=== PATIENT | male | born 1965 | race Caucasian/White ===

== ENCOUNTER 2020-05-24 10:49 | Observation (INO) | payer OTHER, SELFPAY ==
[2020-05-24] VITALS (14 sets, daily range): BP systolic 112–137; BP diastolic 70–95; PULSE 62–106; RESP 16–24; TEMP 36.4–36.8; O2SAT 88–98
--- NOTE | 2020-05-24 11:16 | XRR_ITS ---
PROCEDURE INFORMATION: Exam: XR Chest, 1 View Exam date and time: 05/24/2020 11:44 AM Age: 55 years old Clinical indication: Dyspnea; Additional info: Dyspnea, covid R/O TECHNIQUE: Imaging protocol: XR of the chest Views: 1 view. COMPARISON: CR Chest 2 views* [id number] 09/24/2018 7:58 PM FINDINGS: Lungs: Lungs are well aerated without a focal area of consolidation. Pleural space: Unremarkable. No pleural effusion. No pneumothorax. Heart/Mediastinum: Cardiomegaly Vasculature: Pacemaker is present via a left subclavian approach. Bones/joints: Unremarkable. XR/XR chest 1V portable [id number] IMPRESSION: Lungs are well aerated without a focal area of consolidation.
--- NOTE | 2020-05-24 11:17 | ECG_ITS ---
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 Measurements Intervals [place] Rate: 96 P: 64 FL: 154 QRS: 260 QRSD: 125 T: 59 QT: 381 QTc: 484 Interpretive Statements SINUS RHYTHM MARKED RIGHT AXIS DEVIATION [QRS AXIS > 100] RIGHT BUNDLE BRANCH BLOCK [120+ ms QRS DURATION, UPRIGHT V1, 40+ ms S IN I/aVL/V4/V5/V6] POSSIBLE ANTERIOR MYOCARDIAL INFARCTION [30 ms Q WAVE IN V3/V4, OR R < 0.2 mV IN V4], OF INDETERMINATE AGE Compared to ECG 09/18/2018 04:01:44 No significant changes Electronically Signed On 05-24-2020 13:19:10 CDT by Alverot Qureshi M.D. https://[employer]arly[employer]so[employer]koaaf[employer] Toursbl[facility].SocialProof/store/NU/[id number] f
--- NOTE | 2020-05-24 11:22 | ED_ITS ---
HPI - SOB/Dyspnea General: Chief Complaint: Shortness of Breath/Dyspnea Stated Complaint: SOB Time Seen by Provider: 05/24/20 10:51 History of Present Illness: HPI Narrative: This patient is a 55-year-old male with a history of COPD. He does not normally use oxygen at home. He does have nebulizers. He also has a history of ischemic cardiomyopathy and has had episodes of CHF. He has been short of breath for several weeks. He is been on 2 rounds of antibiotics and prednisone Dosepak which he finished on Saturday. None of these interventions have made him feel much better. He said he did have a COVID test a couple of weeks ago prior to a stress test. He came in today because he is increasingly short of breath. He was coming up to the hospital for a appointment with cardiology but decided to come to the ER. His sat on arrival was 88%. He is labored. He denies fever, vomiting or diarrhea. He has had a cough and feels like he cannot cough up what he needs to. He has had body aches but said that is not unusual for him. He has been taking his Lasix but did skip it today because he felt so bad. MD elicited complaint: shortness of breath and cough Pertinent past history: COPD and congestive heart failure Onset (ago): week(s) (2 or 3, became worse yesterday) Timing: constant and progressively worsening Severity: severe Exacerbating factors: exertion Relieving factors: oxygen and rest Known history of: COPD, congestive heart failure and diabetes Associated symptoms: Reports chest pain (Tightness across his chest that comes and goes without pattern), cough and myalgias; Deny abdominal pain, fever(s), nausea or vomiting Treatment prior to arrival: bronchodilator Review of Systems General: Reports: 10 or more systems reviewed and unremarkable except in HPI and below Const: Reports: fatigue and malaise; Denies: fever(s) or chills Eyes: Denies: change in vision ENMT: Denies: odynophagia Card: Reports: chest pain (Tightness across his chest that comes and goes without pattern) Resp: Reports: dyspnea, non-productive cough and wheezing; Denies: productive cough GI: Denies: abdominal pain, nausea or vomiting : Denies: flank pain Musc: Denies: neck pain or back pain Skin/Breast: Denies: rash Neuro: Denies: headache(s), numbness in extremities or weakness in extremities Ruben/Lymph: Denies: easy bruising or easy bleeding PFSH ED PFSH: Medical History COPD (chronic obstructive pulmonary disease) Hyperlipidemia Ischemic cardiomyopathy ST elevation myocardial infarction (STEMI) of inferior wall Tobacco abuse Social History Smoking and tobacco status: current every day smoker Physical Exam Const: COMMON NORMALS: no acute distress, patient oriented x3, no limitations and alert GENERAL APPEARANCE: cooperative NUTRITIONAL APPEARANCE: obese morbidly obese HENMT: HEAD & SCALP: normal to inspection FACE & SINUS: normal facial exam Eye: GENERAL EYE: appearance normal, both eyes and all related structures Neck/C-Spine: COMMON NORMALS: supple, no meningeal signs and no JVD Chest: COMMONS NORMALS: normal inspection of the chest Resp: EFFORT & INSPECTION: Yes tachypneic, Yes labored and Yes uses accessory muscles AUSCULTATION: wheezes and diminished lung sounds Cardio: COMMON NORMALS: no JVD, regular rate, regular rhythm and No murmurs present (Cardio) RATE: regular rate RHYTHM: regular rhythm GI: COMMON NORMALS: Normal to inspection, nondistended, normoactive bowel sounds present, Soft to palpation and non-tender INSPECTION: Yes normal to inspection AUSCULTATION: Yes normoactive bowel sounds PALPATION: Yes Soft to palpation Back/Pelvis: COMMON NORMALS: thoracic and lumbar spine normal to inspection Extremity: COMMON NORMALS: normal to inspection Neuro: COMMON NORMALS: patient oriented x3, moves all extremities, no focal motor deficits and no sensory deficits noted SENSORIUM/ORIENTATION: Yes alert MENINGEAL SIGNS: Yes no meningeal signs Psych: COMMON NORMALS: mental status grossly normal, cooperative and normal affect Skin: COMMON NORMALS: no rashes or lesions noted and turgor normal GENERAL SKIN EXAM: no rashes or lesions noted and turgor normal Course ED course: This is a patient with a history of COPD. He does not normally require oxygen but he is requiring it today. He had a negative Covid test today in a couple of weeks ago. Think clinically looks like he may have some pneumonia. He has been on 2 rounds of antibiotic and steroids at home. We will start some IV antibiotics, continue nebulizer treatments. He did get 1 dose of Decadron in the ER. Vital Signs: Vital signs: Vital Signs Temperature 97.6 F 05/25/20 13:30 Pulse Rate 79 05/25/20 13:30 Respiratory Rate 18 05/25/20 13:30 Blood Pressure 118/65 05/25/20 13:30 Pulse Oximetry 94 05/25/20 13:30 MDM - SOB/Dyspnea Lab Data: Labs: Lab Results 05/24/20 05/24/20 05/24/20 Range/Units 12:14 12:14 12:14 WBC 9.5 (4.0-10.0) 10^3/ uL RBC 5.83 H (4.1-5.3) 10^6/u L Hgb 16.7 H (11.7-16.6) g/dL Hct 54.5 H (42.0-52.0) % MCV 93.5 (80-94) fL MCH 28.6 (28.0-34.0) pg MCHC 30.6 (30.0-36.0) g/dL RDW 16.5 H (12.1-15.1) % Plt Count 275 (130-400) 10^3/c mm MPV 10.6 H (7.4-10.4) fL Neut % (Auto) 76.3 % Lymph % (Auto) 13.4 % Norton % (Auto) 6.7 % Eos % (Auto) 2.6 % Baso % (Auto) 0.7 % Neut # (Auto) 7.20 (1.8-7.7) 10^3/u L Lymph # (Auto) 1.3 (0.8-4.8) 10^3/u L Norton # (Auto) 0.6 (0.2-0.9) 10^3/u L Eos # (Auto) 0.3 (0.0-0.8) 10^3/u L Baso # (Auto) 0.1 (0.0-0.1) 10^3/u L Nucleated RBC % (a uto) 0 % Nucleated RBCs # 0.0 /100WBC PT 13.40 (12.1-14.9) SECO NDS INR 0.99 (0.8-1.2) Fibrinogen 465 (174-498) mg/dL D-Dimer 0.31 (0-0.59) ug/mIFE U Sodium 139 (136-145) mmol/L Potassium 4.8 (3.5-5.1) mmol/L Chloride 101 (98-107) mmol/L Carbon Dioxide 28 (22-29) mmol/L Anion Gap 14.8 (5-19) BUN 17 (6-20) mg/dL Creatinine 0.8 (0.7-1.2) mg/dL GFR Calculation 100.0 (90-130) mL/min Glucose 220 H (65-115) mg/dL Calculated Osmolal ity 296 H (285-295) mOsm/k g Lactic Acid (0.5-2.2) mmol/L Calcium 8.8 (8.5-10.5) mg/dL Magnesium 2.2 (1.7-2.3) mg/dL Ferritin 32 (30-400) ng/mL Total Bilirubin 0.3 (0.15-1.2) mg/dL AST 30 (0-40) U/L ALT 36 (0-41) U/L Alkaline Phosphata se 101 (40-130) IU/L Lactate Dehydrogen ase 310 H (135-225) U/L Troponin T Baselin e (0-15) ng/L Troponin T 120 Min laureen (0-15) ng/L Delta Troponin T (0-10) ABS# C-Reactive Protein 5.3 H (0.0-4.9) mg/L NT-Pro-B Natriuret Pep 757 H (0-125) pg/mL Total Protein 6.5 L (6.6-8.7) g/dL Albumin 3.7 (3.5-5.2) g/dL Globulin 2.8 (1.3-4.6) g/dL Procalcitonin 0.07 (0-0.5) ng/mL SARS-CoV-2 Ag (Rap id) (Negative) 05/24/20 05/24/20 05/24/20 Range/Units 12:14 12:14 12:23 WBC (4.0-10.0) 10^3/ uL RBC (4.1-5.3) 10^6/u L Hgb (11.7-16.6) g/dL Hct (42.0-52.0) % MCV (80-94) fL MCH (28.0-34.0) pg MCHC (30.0-36.0) g/dL RDW (12.1-15.1) % Plt Count (130-400) 10^3/c mm MPV (7.4-10.4) fL Neut % (Auto) % Lymph % (Auto) % Norton % (Auto) % Eos % (Auto) % Baso % (Auto) % Neut # (Auto) (1.8-7.7) 10^3/u L Lymph # (Auto) (0.8-4.8) 10^3/u L Norton # (Auto) (0.2-0.9) 10^3/u L Eos # (Auto) (0.0-0.8) 10^3/u L Baso # (Auto) (0.0-0.1) 10^3/u L Nucleated RBC % (a uto) % Nucleated RBCs # /100WBC PT (12.1-14.9) SECO NDS INR (0.8-1.2) Fibrinogen (174-498) mg/dL D-Dimer (0-0.59) ug/mIFE U Sodium (136-145) mmol/L Potassium (3.5-5.1) mmol/L Chloride (98-107) mmol/L Carbon Dioxide (22-29) mmol/L Anion Gap (5-19) BUN (6-20) mg/dL Creatinine (0.7-1.2) mg/dL GFR Calculation (90-130) mL/min Glucose (65-115) mg/dL Calculated Osmolal ity (285-295) mOsm/k g Lactic Acid 1.4 (0.5-2.2) mmol/L Calcium (8.5-10.5) mg/dL Magnesium (1.7-2.3) mg/dL Ferritin (30-400) ng/mL Total Bilirubin (0.15-1.2) mg/dL AST (0-40) U/L ALT (0-41) U/L Alkaline Phosphata se (40-130) IU/L Lactate Dehydrogen ase (135-225) U/L Troponin T Baselin e 81 H (0-15) ng/L Troponin T 120 Min laureen (0-15) ng/L Delta Troponin T (0-10) ABS# C-Reactive Protein (0.0-4.9) mg/L NT-Pro-B Natriuret Pep (0-125) pg/mL Total Protein (6.6-8.7) g/dL Albumin (3.5-5.2) g/dL Globulin (1.3-4.6) g/dL Procalcitonin (0-0.5) ng/mL SARS-CoV-2 Ag (Rap id) Negative (Negative) 05/24/20 Range/Units 14:38 WBC (4.0-10.0) 10^3/ uL RBC (4.1-5.3) 10^6/u L Hgb (11.7-16.6) g/dL Hct (42.0-52.0) % MCV (80-94) fL MCH (28.0-34.0) pg MCHC (30.0-36.0) g/dL RDW (12.1-15.1) % Plt Count (130-400) 10^3/c mm MPV (7.4-10.4) fL Neut % (Auto) % Lymph % (Auto) % Norton % (Auto) % Eos % (Auto) % Baso % (Auto) % Neut # (Auto) (1.8-7.7) 10^3/u L Lymph # (Auto) (0.8-4.8) 10^3/u L Norton # (Auto) (0.2-0.9) 10^3/u L Eos # (Auto) (0.0-0.8) 10^3/u L Baso # (Auto) (0.0-0.1) 10^3/u L Nucleated RBC % (a uto) % Nucleated RBCs # /100WBC PT (12.1-14.9) SECO NDS INR (0.8-1.2) Fibrinogen (174-498) mg/dL D-Dimer (0-0.59) ug/mIFE U Sodium (136-145) mmol/L Potassium (3.5-5.1) mmol/L Chloride (98-107) mmol/L Carbon Dioxide (22-29) mmol/L Anion Gap (5-19) BUN (6-20) mg/dL Creatinine (0.7-1.2) mg/dL GFR Calculation (90-130) mL/min Glucose (65-115) mg/dL Calculated Osmolal ity (285-295) mOsm/k g Lactic Acid (0.5-2.2) mmol/L Calcium (8.5-10.5) mg/dL Magnesium (1.7-2.3) mg/dL Ferritin (30-400) ng/mL Total Bilirubin (0.15-1.2) mg/dL AST (0-40) U/L ALT (0-41) U/L Alkaline Phosphata se (40-130) IU/L Lactate Dehydrogen ase (135-225) U/L Troponin T Baselin e (0-15) ng/L Troponin T 120 Min laureen 76.90 H (0-15) ng/L Delta Troponin T -4.10 L (0-10) ABS# C-Reactive Protein (0.0-4.9) mg/L NT-Pro-B Natriuret Pep (0-125) pg/mL Total Protein (6.6-8.7) g/dL Albumin (3.5-5.2) g/dL Globulin (1.3-4.6) g/dL Procalcitonin (0-0.5) ng/mL SARS-CoV-2 Ag (Rap id) (Negative) Discharge Plan Discharge Patient Disposition: Admitted As Inpatient Admit Provider: Gabrielle Marr Clinical Impression: Acute exacerbation of chronic obstructive airways disease, Community acquired pneumonia Condition: Stable Referrals: Karla Ryan MD [Primary Care Provider] - 06/01/20 10:00 am ( Please follow up with Primary care by phone appointment SaturdayJune 01 at 10:00 am. 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
[2020-05-24 12:24] LABS: Basophils # 0.1 10^3/uL (0.0-0.1); Basophils % 0.7 %; Eosinophils # 0.3 10^3/uL (0.0-0.8); Eosinophils % 2.6 %; Hematocrit 54.5 % (42.0-52.0); Hemoglobin 16.7 g/dL (11.7-16.6); Lymphocytes # 1.3 10^3/uL (0.8-4.8); Lymphocytes % 13.4 %; Mean Corpuscular HGB Conc 30.6 g/dL (30.0-36.0); Mean Corpuscular Hemoglobin 28.6 pg (28.0-34.0); Mean Corpuscular Volume 93.5 fL (80-94); Mean Platelet Volume 10.6 fL (7.4-10.4); Monocytes # 0.6 10^3/uL (0.2-0.9); Monocytes % 6.7 %; Neutrophils % 76.3 %; Nucleated Red Blood Cells % 0 %; Platelet Count 275 10^3/cmm (130-400); Red Blood Count 5.83 10^6/uL (4.1-5.3); Red Cell Distribution Width 16.5 % (12.1-15.1); White Blood Count 9.5 10^3/uL (4.0-10.0)
[2020-05-24] MEDS: dexamethasone 4 mg/mL INJ 6 MG IVP (12:28)
[2020-05-24 12:38] LABS: INR 0.99 (0.8-1.2)
[2020-05-24 12:39] LABS: Fibrinogen 465 mg/dL (174-498)
[2020-05-24 12:41] LABS: D Dimer 0.31 ug/mIFEU (0-0.59)
[2020-05-24 12:42] LABS: Lactic Sepsis W/Reflex 1.4 mmol/L (0.5-2.2)
--- NOTE | 2020-05-24 13:17 | ECG_ITS ---
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 Measurements Intervals [place] Rate: 74 P: 56 [place]: 151 QRS: 258 QRSD: 120 T: 52 QT: 413 QTc: 461 Interpretive Statements SINUS RHYTHM WITH MARKED SINUS ARRHYTHMIA MARKED RIGHT AXIS DEVIATION [QRS AXIS > 100] RIGHT BUNDLE BRANCH BLOCK [120+ ms QRS DURATION, UPRIGHT V1, 40+ ms S IN I/aVL/V4/V5/V6] POSSIBLE ANTERIOR MYOCARDIAL INFARCTION [30 ms Q WAVE IN V3/V4, OR R < 0.2 mV IN V4], OF INDETERMINATE AGE Compared to ECG 05/24/2020 11:03:22 No significant changes Electronically Signed On 05-26-2020 20:58:57 CDT by Alverto Qureshi M.D. [email or web address] [facility].[employer]/store/NU/[id number] f
[2020-05-24 13:20] LABS: SARS Covid-2 Antigen Negative (Negative)
[2020-05-24 13:25] LABS: Troponin(5th) Baseline 81 ng/L (0-15)
[2020-05-24 13:33] LABS: NT Pro B Type Natriuretic Pept 757 pg/mL (0-125); Procalcitonin 0.07 ng/mL (0-0.5)
[2020-05-24 13:44] LABS: Alanine Aminotransferase 36 U/L (0-41); Albumin Level 3.7 g/dL (3.5-5.2); Alkaline Phosphatase 101 IU/L (40-130); Aspartate Amino Transferase 30 U/L (0-40); Blood Urea Nitrogen 17 mg/dL (6-20); C Reactive Protein 5.3 mg/L (0.0-4.9); Calcium 8.8 mg/dL (8.5-10.5); Carbon Dioxide 28 mmol/L (22-29); Chloride 101 mmol/L (98-107); Creatinine Clr Calc Pharmacy 168.6796; Ferritin 32 ng/mL (30-400); Globulin 2.8 g/dL (1.3-4.6); Glucose 220 mg/dL (65-115); Magnesium 2.2 mg/dL (1.7-2.3); Osmolality Calculated 296 mOsm/kg (285-295); Sodium 139 mmol/L (136-145); Total Bilirubin 0.3 mg/dL (0.15-1.2); Total Protein 6.5 g/dL (6.6-8.7)
[2020-05-24 13:52] LABS: Anion Gap 14.8 (5-19)
[2020-05-24 13:53] LABS: Potassium 4.8 mmol/L (3.5-5.1)
[2020-05-24 13:55] LABS: Lactate Dehydrogenase 310 U/L (135-225)
[2020-05-24] MEDS: ipratropium-albuterol 3 mL Neb INHALATION ×3 (16:05→23:37)
[2020-05-24 16:20] LABS: Blood Gas Allen Test Pos; Blood Gas Operator Identificat CAK; Blood Gas Sample Type Arterial; Oxygen Device NC
[2020-05-24 16:27] LABS: ABG PCO2 57.3 mmHg (35-45); ABG PH Result 7.36 (7.35-7.45); Arterial Blood Gas Hematocrit 53.6 % (42-52); Blood Gas Sample Site Brachial, left; HCO3 ABG 32.6 mmol/L (22-26); PO2 ABG 71.8 mmHg (80.0-100.0)
--- NOTE | 2020-05-24 17:05 | PC.NURSE ---
pt report called to Narda DE LA CRUZ in SBAR format.
[2020-05-24] MEDS: cefTRIAXone 1,000 MG in sodium chloride 0.9% (plus) 50 ML 100 MG IV (17:11)
--- NOTE | 2020-05-24 17:14 | PM.HP ---
Providers/Chief Complaint Admitting Physician: Gabrielle Marr MD Primary Care Provider: Karla Ryan MD Chief Complaint: SOB History of Present Illness Param Tejada is a 55 year old male with past medical history of coronary artery disease status post PCI of RCA and LAD, ischemic cardiomyopathy status post defibrillator placement, hypertension, hyperlipidemia wih worsening dyspnea over the past 2-3 months with some worsening over the past 3 weeks. He has had outpatient w/up with [facility] and reportedly was disgnosed with PNa adnd COPD excarebation for which he received a course of abx and sreoids with no relief. Still smokes several cigarettes a day. Today needing new 02 requierment of 2lpm as 02 sat on RA 88%. reportedly needed 02 last year as well but for unclear reason was then taken away. recently from [facility] was advised a stress test, results of which are not currety avalable for review, will request. ABG WNL, COVID rapid AG negative, no infiltrates on CXR, d dimer negative. No fever, URi symptoms. No NVD. Review of Systems General: Reports: 10 or more systems reviewed and unremarkable except in HPI and below Const: Denies: fever(s), chills or body aches Eyes: Denies: change in vision, blurry vision or photophobia ENMT: Denies: throat pain, enlarged tonsils, odynophagia or nasal congestion Card: Denies: chest pain, palpitations, irregular heart rhythm, edema, swelling of feet/ankles, lightheadedness, pre-syncope, dyspnea on exertion or orthopnea Resp: Reports: dyspnea, non-productive cough and wheezing; Denies: productive cough, stridor, pain on inspiration, change in phlegm color, hemoptysis or chest congestion GI: Denies: abdominal pain, nausea, vomiting, hematemesis, coffee ground emesis, dysphagia, heartburn, diarrhea, constipation, GI cramping, change in stool character, hematochezia or melena : Denies: flank pain, dysuria, urinary frequency, urinary urgency, urinary hesitancy or hematuria Musc: Denies: neck pain, back pain, extremity pain, joint swelling, joint warmth or deformity Neuro: Denies: headache(s), numbness in extremities, weakness in extremities, sensory changes, difficulty walking, frequent falls, dizziness, vertigo, behavioral changes, Slurred speech present or seizure-like activity Psych: Denies: anxiety, depression, suicidal ideation or homicidal ideation Endo: Denies: polyuria, polydipsia, tired all the time, cold intolerance or hot flashes Ruben/Lymph: Denies: easy bruising or easy bleeding Medications/Allergies Home Medications Medication Instructions Recorded Confirmed Last Taken Type albuterol sulfate 5 mg/mL(0.5 %) 2.5 mg INHALATION Q4H PRN 04/05/20 04/05/20 Unknown History solution for nebulization albuterol sulfate 90 mcg/actuation 1 inh INHALATION QID 04/05/20 04/05/20 Unknown History aerosol inhaler aspirin 81 mg tablet,delayed 81 mg PO DAILY 04/05/20 04/05/20 Unknown History release atorvastatin 80 mg tablet 80 mg PO DAILY 04/05/20 04/05/20 Unknown History empagliflozin 10 mg tablet 10 mg PO DAILY 04/05/20 04/05/20 Unknown History furosemide 20 mg tablet 20 mg PO DAILY 04/05/20 04/05/20 Unknown History gabapentin 600 mg tablet 600 mg PO TID 04/05/20 04/05/20 Unknown History insulin glargine 100 unit/mL (3 10 unit SUBCUT DAILY 04/05/20 04/05/20 Unknown History mL) subcutaneous pen insulin glargine 100 unit/mL (3 68 unit SUBCUT QAM ml 04/05/20 04/05/20 Unknown History mL) subcutaneous pen metformin 500 mg tablet 500 mg PO DAILY 04/05/20 04/05/20 Unknown History methocarbamol 500 mg tablet 500 mg PO QID 04/05/20 04/05/20 Unknown History metoprolol succinate 25 mg capsule 12.5 mg PO BID each 04/05/20 04/05/20 Unknown History sprinkle, ext. release 24 hr nitroglycerin 0.4 mg sublingual 0.4 mg SUBLINGUAL Q5M PRN 04/05/20 04/05/20 Unknown History tablet ticagrelor 90 mg tablet 90 mg PO BID 04/05/20 04/05/20 Unknown History tramadol 50 mg tablet 50 mg PO Q6H PRN 04/05/20 04/05/20 Unknown History Allergies Allergy/AdvReac Type Severity Reaction Status Date / Time Sulfa (Sulfonamide Allergy ALGY-Anaphy Verified 05/24/20 11:12 Antibiotics) laxis PFSH Acute PFSH: Medical History COPD (chronic obstructive pulmonary disease) Hyperlipidemia Ischemic cardiomyopathy ST elevation myocardial infarction (STEMI) of inferior wall Tobacco abuse Social History Smoking and tobacco status: current every day smoker Vitals/I&O/Wt Last Vital Signs Temp 98.2 F 05/24/20 10:50 Pulse 82 05/24/20 16:58 Resp 16 05/24/20 16:58 BP 126/78 05/24/20 16:58 Pulse Ox 94 05/24/20 16:58 Weight last 48 hrs Weight 115.666 kg Physical Exam Const: COMMON NORMALS: no acute distress, average body habitus, patient oriented x3, no limitations, healthy appearing, alert and well nourished HENMT: COMMON NORMALS: normocephalic and atraumatic HEAD & SCALP: normocephalic and atraumatic Eye: COMMON NORMALS: Equal, round and reactive pupils present, EOMs intact bilaterally, conjunctivae normal and no scleral icterus CONJUNCTIVA: Yes conjunctivae normal PUPIL: Yes Equal, round and reactive pupils present Neck/C-Spine: COMMON NORMALS: no JVD Resp: COMMON NORMALS: normal respiratory effort, No retractions, No use of accessory muscles, clear to auscultation bilaterally and percussion normal AUSCULTATION: clear to auscultation bilaterally PERCUSSION: percussion normal Cardio: COMMON NORMALS: no JVD, regular rate, regular rhythm, S1 normal heart sound present, S2 normal heart sound present, No gallops present (Cardio), No clicks present (Cardio), No murmurs present (Cardio), No rub (Cardio) and Peripheral pulses 2+ throughout RATE: regular rate RHYTHM: regular rhythm HEART SOUNDS: S1 normal heart sound present and S2 normal heart sound present PERIPHERAL PULSES: Peripheral pulses 2+ throughout GI: COMMON NORMALS: Normal to inspection, nondistended, normoactive bowel sounds present, Soft to palpation, non-tender, No hepatosplenomegaly present, no masses and no bruits PALPATION: Yes Soft to palpation and Yes No hepatosplenomegaly present Extremity: COMMON NORMALS: normal to inspection, full ROM, capillary refill normal, no joint enlargement, no clubbing, cyanosis or edema, no calf tenderness and no pedal edema Neuro: COMMON NORMALS: patient oriented x3, CN's II-XII intact bilaterally, moves all extremities, no focal motor deficits, no sensory deficits noted, deep tendon reflexes 2+ bilaterally and gait normal SENSORIUM/ORIENTATION: Yes alert Psych: COMMON NORMALS: mental status grossly normal, Normal thought process present, cooperative, normal affect, speech normal, activity/motor behavior normal, denies hallucinations, denies homicidal ideation and denies suicidal ideation SPEECH: Yes normal speech THOUGHT PROCESS: Normal thought process present Skin: COMMON NORMALS: no rashes or lesions noted, no wounds, turgor normal, no jaundice, no petechiae and no mottling GENERAL SKIN EXAM: no rashes or lesions noted and turgor normal Data : 05/24/20 12:14 05/24/20 12:14 A&P Assessment and plan (1) Acute exacerbation of chronic obstructive airways disease: Admit in observation nebulization with duonebs and budesonide scheduleing methylprednisone 30mg iv q8h for COPD ex nicotine patch daily encouraged to quit ssmoking azithromycin for COPD ex D dimer negative, low probablity of PE BNP 700, lower than previous admissions, clinically euvolemic obtain stress test results from [facility] home 02 eval Status: Acute (2) Tobacco abuse: nicotine patch, counselling for smoking cessation provided Status: Acute (3) Ischemic cardiomyopathy: Cotinue home meds incl B blockers, ASA and Brilinta. 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
--- NOTE | 2020-05-24 17:17 | ECG_ITS ---
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 Measurements Intervals [place] Rate: 68 P: 51 [place]: 149 QRS: 265 QRSD: 120 T: 133 QT: 420 QTc: 447 Interpretive Statements SINUS RHYTHM MARKED RIGHT AXIS DEVIATION [QRS AXIS > 100] RIGHT BUNDLE BRANCH BLOCK [120+ ms QRS DURATION, UPRIGHT V1, 40+ ms S IN I/aVL/V4/V5/V6] POSSIBLE ANTEROSEPTAL MYOCARDIAL INFARCTION [30 ms Q WAVE IN V1-V4], OF INDETERMINATE AGE Compared to ECG 05/24/2020 13:15:31 Sinus arrhythmia no longer present Myocardial infarct finding still present Electronically Signed On 05-26-2020 20:57:17 CDT by Alverto Qureshi M.D. [email or web address].[employer]/store/OM/[id number]
[2020-05-24 18:54] LABS: Troponin 5 6HR 63.11 ng/L (0-15)
[2020-05-24] MEDS: enoxaparin 40 mg/0.4 mL Syringe SUBCUT (19:04)
[2020-05-24] MEDS: ticagrelor 90 mg Tablet PO (19:04)
--- NOTE | 2020-05-24 19:14 | PC.NURSE ---
PTS HEIGHT CHARTED BY SOMEONE ELSE IN ERROR, PT IS NOT 65FT.
[2020-05-24] MEDS: nicotine 14 mg Patch 1 PATCH TRANSDERMA (19:51)
--- NOTE | 2020-05-24 20:09 | PC.NURSE ---
ROOM CHANGE Pt convinced there is something in room making him sneeze. Was moved to room 263 and says thinks is going to be better
[2020-05-24] MEDS: budesonide 0.5 mg/2 mL Neb INHALATION (20:17)
[2020-05-24] MEDS: gabapentin 300 mg Capsule 600 MG PO (21:14)
[2020-05-24] MEDS: metoprolol succinate ER (24 HR) 25 mg Tablet 12.5 MG PO (21:15)
[2020-05-24] MEDS: acetaminophen 325 mg Tablet 650 MG PO (21:16)
[2020-05-24] MEDS: insulin glargine 100 units/1 mL 68 UNIT SUBCUT (21:17)
[2020-05-24] MEDS: TRAMadol 50 mg Tablet PO (21:20)
[2020-05-24] MEDS: atorvastatin 40 mg Tablet 80 MG PO (21:20)
[2020-05-24] MEDS: methocarbamol 500 mg Tablet 1000 MG PO (21:26)
[2020-05-24 21:53] LABS: Glucose Point of Care 232 mg/dL (70-110)
[2020-05-25] VITALS (11 sets, daily range): BP systolic 95–133; BP diastolic 61–81; PULSE 62–89; RESP 17–22; TEMP 36.4–37.2; O2SAT 61–96
--- NOTE | 2020-05-25 05:26 | PC.NURSE ---
SHIFT SUMMARY Rested well tonight. Awake early and ambulated in [place]. Drinking cup of coffee. Says feels about the same this morning but did cough up some thick sputum. Still with nasal congestion but not sneezing like early last evening. Received Tramadol and Methacarbamol at bedtime and says that helps him sleep otherwise his legs bother him all night. Has c/o some SOB with exertion. Has not worn O2 this morning and doing well
[2020-05-25 05:30] LABS: Basophils % 0.2 %; Hematocrit 58.3 % (42.0-52.0); Hemoglobin 17.7 g/dL (11.7-16.6); Lymphocytes # 0.6 10^3/uL (0.8-4.8); Lymphocytes % 5.3 %; Mean Corpuscular HGB Conc 30.4 g/dL (30.0-36.0); Mean Corpuscular Hemoglobin 28.3 pg (28.0-34.0); Mean Corpuscular Volume 93.3 fL (80-94); Mean Platelet Volume 11.1 fL (7.4-10.4); Monocytes # 0.2 10^3/uL (0.2-0.9); Monocytes % 1.9 %; Neutrophils # 10.01 10^3/uL (1.8-7.7); Neutrophils % 92.2 %; Nucleated Red Blood Cells % 0 %; Platelet Count 286 10^3/cmm (130-400); Red Blood Count 6.25 10^6/uL (4.1-5.3); Red Cell Distribution Width 17.1 % (12.1-15.1); White Blood Count 10.9 10^3/uL (4.0-10.0)
[2020-05-25 06:07] LABS: Alanine Aminotransferase 35 U/L (0-41); Albumin Level 4.3 g/dL (3.5-5.2); Alkaline Phosphatase 111 IU/L (40-130); Aspartate Amino Transferase 24 U/L (0-40); Blood Urea Nitrogen 20 mg/dL (6-20); Calcium 9.6 mg/dL (8.5-10.5); Carbon Dioxide 30 mmol/L (22-29); Chloride 102 mmol/L (98-107); Globulin 3.3 g/dL (1.3-4.6); Glomerular Filtration Rate 77.3 mL/min (90-130); Glucose 185 mg/dL (65-115); Osmolality Calculated 301 mOsm/kg (285-295); Sodium 142 mmol/L (136-145); Total Bilirubin 0.3 mg/dL (0.15-1.2); Total Protein 7.6 g/dL (6.6-8.7)
[2020-05-25 07:48] LABS: Glucose Point of Care 167 mg/dL (70-110)
[2020-05-25] MEDS: ipratropium-albuterol 3 mL Neb INHALATION ×2 (08:13→12:24)
[2020-05-25] MEDS: budesonide 0.5 mg/2 mL Neb INHALATION (08:13)
[2020-05-25] MEDS: azithromycin 250 mg Tablet 500 MG PO (08:46)
[2020-05-25] MEDS: aspirin 81 mg EC Tablet PO (08:46)
[2020-05-25] MEDS: metoprolol succinate ER (24 HR) 25 mg Tablet 12.5 MG PO (08:47)
[2020-05-25] MEDS: gabapentin 300 mg Capsule 600 MG PO (08:48)
[2020-05-25] MEDS: pantoprazole DR 40 mg Tablet PO (08:49)
[2020-05-25] MEDS: FUROsemide 20 mg Tablet PO (08:49)
[2020-05-25] MEDS: nicotine 14 mg Patch 1 PATCH TRANSDERMA (08:50)
[2020-05-25] MEDS: ticagrelor 90 mg Tablet PO (08:51)
[2020-05-25] MEDS: acetaminophen 325 mg Tablet 650 MG PO (08:54)
[2020-05-25] MEDS: TRAMadol 50 mg Tablet PO (08:54)
[2020-05-25 10:43] LABS: Glucose Point of Care 255 mg/dL (70-110)
--- NOTE | 2020-05-25 10:59 | PC.NURSE ---
Rounding: CRISTHIAN Mendez informed myself that patient, Mr. Tejada was aggravated that he has not seen the physician at this time. Informed patient that the physician is on another unit seeing patients and that once she is available she would be up to see him. Patient states that if he does not see the physician by noon he is leaving. [facility] physician yesterday and i took in the request form for patient to sign and he states that That stress test has nothing to do with why I'm here and refused to sign the release. I educated patient that it gives the physician access to review previous records to help in his overall care. He still refused. I left the room and 5 minutes later patient had call light on stating he would sign the request for records. Physician notified. Continue to closely monitor. GUSTABO CHICAS
--- NOTE | 2020-05-25 12:24 | P.DS_ITS ---
Discharge Providers Date of Admission: 05/24/20 16:05 Date of Discharge: May 25, 2020 Attending Provider at Admission: Gabrielle Marr MD Attending Provider at Discharge: Gabrielle Marr MD Primary Care Provider: Karla Ryan MD Diagnoses at Discharge Discharge Diagnosis (1) Acute exacerbation of chronic obstructive airways disease: Status: Acute (2) Tobacco abuse: Status: Acute (3) Ischemic cardiomyopathy: Status: Acute (4) Hyperlipidemia: Status: Acute (5) Hypertension: Status: Acute Reason for Visit Reason for Visit: SOB Hospital Course Discharge Summary: Param Tejada is a 55 year old male with past medical history of coronary artery disease status post PCI of RCA and LAD, ischemic cardiomyopathy status post defibrillator placement, hypertension, hyperlipidemia wih worsening dyspnea over the past 2-3 months with some worsening over the past 3 weeks. On ER arrival he was noted to have a new oxygen requirement of 2 L/min on nasal cannula with O2 sats 88%. Covid rapid antigen was negative. There were no infiltrates seen on his chest x-ray. His ABG was relatively within normal range without any signs of respiratory acidosis or hypoxia. D-dimer was negative making probability of PE low. Troponins were mildly elevated, however the delta's were unremarkable. He denied any fever or URI type symptoms. Overall impression was that of acute on chronic COPD exacerbation for which he received treatment with IV steroids, transition to p.o. prednisone taper upon discharge. He also received a course of azithromycin while here. He received nebulization as scheduled with duo nebs and budesonide. He was feeling much improved at this morning and wished to return home. We did recommend waiting to obtain the results of his recent Lexiscan performed at the [facility] so that underlying cardiac etiologies could be excluded including worsening CHF. However he elected to follow-up the results of the study with his design printer balloon at the [facility] and wished to leave today. Referral has also been provided to pulmonology as an outpatient in view of his worsening COPD. Patient is currently on Spiriva, Symbicort and as needed albuterol however without any significant relief in his symptoms and appears to have had a subacute worsening in his COPD over the last few months. Physical Exam Narrative: EXAM NARRATIVE: GEN: Awake, alert and oriented, no acute distress CVS: S1S2 N RS: Bilateral scattered wheezing Abd: Soft, nt/nd , bs+ FIXED INCOME MANAGER: no focal neuro deficits Discharge Data Data Completed and Pending: Completed Studies During Hospitalization Category Date Time Status XR chest 1V trina ble [id number] Stat Exams 05/24/20 11:16 Completed Pending at discharge Category Date Time Status Complete Blood Co unt w/Auto AM LABS Lab 05/26/20 04:00 Ordered Complete Blood Co unt w/Auto AM LABS Lab 05/27/20 04:00 Ordered Comprehensive Met abolic Panel AM LA BS Lab 05/26/20 04:00 Ordered Comprehensive Met abolic Panel AM LA BS Lab 05/27/20 04:00 Ordered Labs from last 24 hours 05/25/20 05/25/20 05/25/20 10:40 07:29 05:04 WBC RBC Hgb Hct MCV MCH MCHC RDW Plt Count MPV Neut % (Auto) Lymph % (Auto) [place] % (Auto) Eos % (Auto) Baso % (Auto) Neut # (Auto) Lymph # (Auto) [place] # (Auto) Eos # (Auto) Baso # (Auto) Nucleated RBC % (a uto) Nucleated RBCs # PT INR Fibrinogen D-Dimer Specimen Type Sample Site ABG pH ABG pCO2 ABG pO2 ABG HCO3 ABG Base Excess Jj Test Hematocrit O2 Delivery Device O2 Liters/Min FiO2 Chemistry Lab Instructor ID Sodium 142 Potassium 5.0 Chloride 102 Carbon Dioxide 30 H Anion Gap 15.0 BUN 20 Creatinine 1.0 GFR Calculation 77.3 L Glucose 185 H POC Glucose 255 167 Calculated Osmolal ity 301 H Lactic Acid Calcium 9.6 Magnesium Ferritin Total Bilirubin 0.3 AST 24 ALT 35 Alkaline Phosphata se 111 Lactate Dehydrogen ase Troponin T Baselin e Troponin T 120 Min [place] Delta Troponin T Troponin T Hi Sens 6Hr Troponin T Hi Sens 6Hr Delta C-Reactive Protein NT-Pro-B Natriuret Pep Total Protein 7.6 Albumin 4.3 Globulin 3.3 Procalcitonin SARS-CoV-2 Ag (Rap id) 05/25/20 05/24/20 05/24/20 05:04 21:50 18:19 WBC 10.9 H RBC 6.25 H Hgb 17.7 H Hct 58.3 H MCV 93.3 MCH 28.3 MCHC 30.4 RDW 17.1 H Plt Count 286 MPV 11.1 H Neut % (Auto) 92.2 Lymph % (Auto) 5.3 [place] % (Auto) 1.9 Eos % (Auto) 0.0 Baso % (Auto) 0.2 Neut # (Auto) 10.01 H Lymph # (Auto) 0.6 L [place] # (Auto) 0.2 Eos # (Auto) 0.0 Baso # (Auto) 0.0 Nucleated RBC % (a uto) 0 Nucleated RBCs # 0.0 PT INR Fibrinogen D-Dimer Specimen Type Sample Site ABG pH ABG pCO2 ABG pO2 ABG HCO3 ABG Base Excess Jj Test Hematocrit O2 Delivery Device O2 Liters/Min FiO2 Chemistry Lab Instructor ID Sodium Potassium Chloride Carbon Dioxide Anion Gap BUN Creatinine GFR Calculation Glucose POC Glucose 232 Calculated Osmolal ity Lactic Acid Calcium Magnesium Ferritin Total Bilirubin AST ALT Alkaline Phosphata se Lactate Dehydrogen ase Troponin T Baselin e Troponin T 120 Min [place] Delta Troponin T Troponin T Hi Sens 6Hr 63.11 H Troponin T Hi Sens 6Hr Delta -17.89 L C-Reactive Protein NT-Pro-B Natriuret Pep Total Protein Albumin Globulin Procalcitonin SARS-CoV-2 Ag (Rap id) 05/24/20 05/24/20 05/24/20 16:09 14:38 12:23 WBC RBC Hgb Hct MCV MCH MCHC RDW Plt Count MPV Neut % (Auto) Lymph % (Auto) [place] % (Auto) Eos % (Auto) Baso % (Auto) Neut # (Auto) Lymph # (Auto) [place] # (Auto) Eos # (Auto) Baso # (Auto) Nucleated RBC % (a uto) Nucleated RBCs # PT INR Fibrinogen D-Dimer Specimen Type Arterial Sample Site Brachial, left ABG pH 7.36 ABG pCO2 57.3 H ABG pO2 71.8 L ABG HCO3 32.6 H ABG Base Excess 5.0 H Jj Test Pos Hematocrit 53.6 H O2 Delivery Device Nc O2 Liters/Min 2.0 FiO2 28.0 Chemistry Lab Instructor ID Cak Sodium Potassium Chloride Carbon Dioxide Anion Gap BUN Creatinine GFR Calculation Glucose POC Glucose Calculated Osmolal ity Lactic Acid Calcium Magnesium Ferritin Total Bilirubin AST ALT Alkaline Phosphata se Lactate Dehydrogen ase Troponin T Baselin e Troponin T 120 Min [place] 76.90 H Delta Troponin T -4.10 L Troponin T Hi Sens 6Hr Troponin T Hi Sens 6Hr Delta C-Reactive Protein NT-Pro-B Natriuret Pep Total Protein Albumin Globulin Procalcitonin SARS-CoV-2 Ag (Rap id) Negative 05/24/20 05/24/20 05/24/20 12:14 12:14 12:14 WBC 9.5 RBC 5.83 H Hgb 16.7 H Hct 54.5 H MCV 93.5 MCH 28.6 MCHC 30.6 RDW 16.5 H Plt Count 275 MPV 10.6 H Neut % (Auto) 76.3 Lymph % (Auto) 13.4 [place] % (Auto) 6.7 Eos % (Auto) 2.6 Baso % (Auto) 0.7 Neut # (Auto) 7.20 Lymph # (Auto) 1.3 [place] # (Auto) 0.6 Eos # (Auto) 0.3 Baso # (Auto) 0.1 Nucleated RBC % (a uto) 0 Nucleated RBCs # 0.0 PT INR Fibrinogen D-Dimer Specimen Type Sample Site ABG pH ABG pCO2 ABG pO2 ABG HCO3 ABG Base Excess Jj Test Hematocrit O2 Delivery Device O2 Liters/Min FiO2 Chemistry Lab Instructor ID Sodium Potassium Chloride Carbon Dioxide Anion Gap BUN Creatinine GFR Calculation Glucose POC Glucose Calculated Osmolal ity Lactic Acid 1.4 Calcium Magnesium Ferritin Total Bilirubin AST ALT Alkaline Phosphata se Lactate Dehydrogen ase Troponin T Baselin e 81 H Troponin T 120 Min [place] Delta Troponin T Troponin T Hi Sens 6Hr Troponin T Hi Sens 6Hr Delta C-Reactive Protein NT-Pro-B Natriuret Pep Total Protein Albumin Globulin Procalcitonin SARS-CoV-2 Ag (Rap id) 05/24/20 05/24/20 12:14 12:14 WBC RBC Hgb Hct MCV MCH MCHC RDW Plt Count MPV Neut % (Auto) Lymph % (Auto) [place] % (Auto) Eos % (Auto) Baso % (Auto) Neut # (Auto) Lymph # (Auto) [place] # (Auto) Eos # (Auto) Baso # (Auto) Nucleated RBC % (a uto) Nucleated RBCs # PT 13.40 INR 0.99 Fibrinogen 465 D-Dimer 0.31 Specimen Type Sample Site ABG pH ABG pCO2 ABG pO2 ABG HCO3 ABG Base Excess Jj Test Hematocrit O2 Delivery Device O2 Liters/Min FiO2 Chemistry Lab Instructor ID Sodium 139 Potassium 4.8 Chloride 101 Carbon Dioxide 28 Anion Gap 14.8 BUN 17 Creatinine 0.8 GFR Calculation 100.0 Glucose 220 H POC Glucose Calculated Osmolal ity 296 H Lactic Acid Calcium 8.8 Magnesium 2.2 Ferritin 32 Total Bilirubin 0.3 AST 30 ALT 36 Alkaline Phosphata se 101 Lactate Dehydrogen ase 310 H Troponin T Baselin e Troponin T 120 Min [place] Delta Troponin T Troponin T Hi Sens 6Hr Troponin T Hi Sens 6Hr Delta C-Reactive Protein 5.3 H NT-Pro-B Natriuret Pep 757 H Total Protein 6.5 L Albumin 3.7 Globulin 2.8 Procalcitonin 0.07 SARS-CoV-2 Ag (Rap id) Vitals: Last Vital Signs Temp 98.0 F 05/25/20 12:00 Pulse 72 05/25/20 12:00 Resp 18 05/25/20 12:00 BP 101/66 05/25/20 12:00 Pulse Ox 96 05/25/20 12:00 Discharge Plan Discharge Patient Disposition: Home Condition: Stable Prescriptions: New nicotine 14 mg/24 hr Patch 24 Hour 1 patch transdermal DAILY 14 Days Qty: 14 RF: 0 prednisone 20 mg tablet See Rx Instructions .ROUTE .COMPLEX Qty: 11 RF: 0 Continued albuterol sulfate 90 mcg/actuation HFA aerosol inhaler 1 inh INHALATION QID RF: 0 albuterol sulfate 5 mg/mL solution for nebulization 2.5 mg INHALATION Q4H PRNRF: 0 aspirin 81 mg tablet,delayed release (DR/EC) 81 mg PO DAILY RF: 0 atorvastatin 80 mg tablet 80 mg PO DAILY RF: 0 Brilinta 90 mg tablet 90 mg PO BID RF: 0 furosemide 20 mg tablet 20 mg PO DAILY RF: 0 gabapentin 600 mg tablet 600 mg PO TID RF: 0 insulin glargine 100 unit/mL (3 mL) insulin pen 10 unit SUBCUT DAILY RF: 0 methocarbamol 500 mg tablet 500 mg PO QID RF: 0 metoprolol succinate 25 mg capsule,sprinkle,ER 24hr 12.5 mg PO BID RF: 0 nitroglycerin 0.4 mg tablet, sublingual 0.4 mg SUBLINGUAL Q5M PRNRF: 0 tramadol 50 mg tablet 50 mg PO Q6H PRNRF: 0 Jardiance 10 mg tablet 10 mg PO DAILY RF: 0 metformin 500 mg tablet 500 mg PO DAILY RF: 0 Lantus Solostar U-100 Insulin 100 unit/mL (3 mL) insulin pen 68 unit SUBCUT QAM RF: 0 Discharge Orders: Discharge Order (Routine); Ordered 05/25/20 Ordered By: Gabrielle Marr Referrals: Karla Ryan MD [Primary Care Provider] - 06/01/20 10:00 am ( Please follow up with Primary care by phone appointment SaturdayJune 01 at 10:00 am. The [facility] office will be calling.) Jasmina Hernandez MD [Physician] - 06/08/20 2:00 pm (Please follow up with Dr Mary COPPOLA SaturdayJune 08 at 2:00 pm) Discharge Diet: Cardiac and Diabetic Discharge Activity: Increase activity as tolerated Patient Instructions: Prednisone (By mouth), Nicotine (Absorbed through the skin), Chest Pain (GEN), How to Stop Smoking (GEN), Cigarette Smoking and Your Health (GEN), Chest Pain Stoplight Discharge Date/Time: 05/25/20 13:10 Discharge Attestations Time Spent in Discharge Care*: greater than 30 min Specific Discharge Activities: Specific discharge activities: educating patient and evaluating patient/reviewing data Quality Metrics Clinical Quality Measures During this hospital stay, did patient experience: None Coding Level of Care Code Acute Elephant Keeper for Chg Fwd Diagnoses Acute exacerbation of chronic obstructive airways disease J44.1 Tobacco abuse Z72.0 Ischemic cardiomyopathy I25.5 Hyperlipidemia E78.5 Hypertension I10
--- NOTE | 2020-05-25 15:36 | PC.RESP ---
Smoking Cessation and Pulmonary Rehab information sent to patient.
== END 2020-05-25 13:10 | disposition home or self-care (01) ==
LOC: ER 16:26 → MEDSURG 20:37
PROVIDERS: Emergency Medicine; Admitting Provider Student in an Organized Health Care Education/Training Program; PCP Family Medicine; Visit Provider Student in an Organized Health Care Education/Training Program
DX: J44.1 Chronic obstructive pulmonary disease with (acute) exacerbation (principal); F17.210 Nicotine dependence, cigarettes, uncomplicated; E78.5 Hyperlipidemia, unspecified; I10 Essential (primary) hypertension; I25.10 Atherosclerotic heart disease of native coronary artery without angina pectoris; I25.2 Old myocardial infarction
CPT/HCPCS: 12345; 36415; 36416; 36600; 71045; 80053; 82728; 82803; 82962; 83605; 83615; 83735; 83880; 84145; 84484; 85025; 85378; 85384; 85610; 86140; 87426; 93005; 94640; 94664; 96365; 96367; 96372; 96375; 99284; 99285; G0378; J0696; J1100; J1650; J1815 ×2; J2920; J7626; Q0144

== ENCOUNTER 2020-06-02 09:22 | Outpatient (RCR) | payer OTHER, SELFPAY | END 2020-06-11 23:59 | disposition home or self-care (01) | LOC: SPT 09:22 | PROVIDERS: PCP Family Medicine; Referring Provider Family Medicine; Visit Provider Family Medicine | DX: M54.5 Low back pain (principal) | CPT/HCPCS: 97161 ==

== ENCOUNTER 2020-06-24 10:44 | Inpatient (IN) | payer OTHER, SELFPAY ==
[2020-06-24] VITALS (18 sets, daily range): BP systolic 118–172; BP diastolic 71–96; PULSE 61–112; RESP 18–26; TEMP 36.8–37.2; O2SAT 82–97; BMI 43.2
--- NOTE | 2020-06-24 11:04 | XR_ITS ---
WS: [id number] Portable AP upright chest, 06/24/2020 Clinical Data: dyspnea/cough Comparison: Portable chest, 05/24/2020. Findings: No nodules, masses or effusions are seen. The heart is enlarged. There is a prominent pacem ora unchanged. The diaphragms are flattened. The pulmonary vascularity is not increased. No pneumoni a or pneumothorax is seen. XR/XR chest 1V portable [id number] Impression: Cardiomegaly and hyperinflation.
--- NOTE | 2020-06-24 11:04 | ED_ITS ---
HPI - SOB/Dyspnea General: Chief Complaint: Shortness of Breath/Dyspnea Stated Complaint: SOB Time Seen by Provider: 06/24/20 10:59 History of Present Illness: HPI Narrative: 55-year-old male with chronic cough and shortness of breath. He is been tested several times for Covid which is been negative he is been treated with steroids and antibiotics he says when he is on the steroids it helps but he is off of antibiotics now. He is on Symbicort and he seen Dr. Potts. Breathing test next week. Patient is morbidly obese has a history of diabetes mellitus. He denies fever sweats or chills denies chest pain. MD elicited complaint: shortness of breath and cough Pertinent past history: COPD Onset (ago): week(s) Context: occurred during exertion Timing: constant Severity: moderate Exacerbating factors: exertion and coughing Relieving factors: oxygen and rest Known history of: COPD Associated symptoms: Reports chest congestion and cough; Deny abdominal pain, chest pain, diaphoresis, dizziness, extremity pain, fever(s), hemoptysis, lightheadedness, myalgias, nausea, orthopnea, palpitations, paresthesias, polydipsia, polyuria, rash, sense of impending doom, syncope or vomiting Treatment prior to arrival: bronchodilator Review of Systems Const: Denies: fever(s) or diaphoresis ENMT: Denies: throat pain, ear or mastoid pain, nasal discharge or nasal congestion Card: Denies: chest pain, palpitations, lightheadedness, syncope or orthopnea Resp: Reports: chest congestion; Denies: hemoptysis GI: Denies: abdominal pain, nausea or vomiting : Denies: flank pain, dysuria, urinary frequency or urinary urgency Musc: Denies: extremity pain Skin/Breast: Denies: rash or pruritus Neuro: Denies: dizziness Endo: Denies: polyuria or polydipsia PFSH ED PFSH: Medical History (Updated 06/28/20 @ 12:41 by Blayne Lofton DO) 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 2 diabetes mellitus COPD (chronic obstructive pulmonary disease) -not oxygen dependent Hyperlipidemia Hypertension 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 dependent diabetes mellitus Ischemic cardiomyopathy Morbid obesity Obstructive sleep apnea -non compliant with CPAP ST elevation myocardial infarction (STEMI) of inferior wall Tobacco abuse Surgical History (Updated 06/24/20 @ 17:50 by Maribel Selby MD) History of cardiac defibrillator placement History of coronary artery stent placement -hx of CAD with inferior wall IN s/p RCA stent, LAD stent Family History (Updated 06/24/20 @ 17:50 by Maribel Selby MD) Denies family history of CAD (coronary artery disease) Social History Smoking and tobacco status: current every day smoker cigarettes Packs smoked per day: 1 Years cigarettes smoked: 40 Quit status (tobacco): considering quitting Alcohol intake: never Lives independently: Yes Household members: none Marital status: Single service: Yes Current occupational status: disabled Pets and animals: Yes Pets & animals: dog(s) History of recent travel: No Current gender identity: Male Physical Exam Const: COMMON NORMALS: no acute distress GENERAL APPEARANCE: cooperative and comfortable ORIENTATION/CONSCIOUSNESS: Yes awake, Yes oriented to person, Yes oriented to place and Yes oriented to time HENMT: COMMON NORMALS: normocephalic, atraumatic and hearing grossly normal bilaterally HEAD & SCALP: normocephalic and atraumatic Neck/C-Spine: COMMON NORMALS: no JVD Resp: AUSCULTATION: rhonchi, wheezes and diminished lung sounds Cardio: COMMON NORMALS: no JVD, regular rate, regular rhythm and No murmurs present (Cardio) RATE: regular rate RHYTHM: regular rhythm GI: COMMON NORMALS: Soft to palpation and No hepatosplenomegaly present AUSCULTATION: Yes normoactive bowel sounds PALPATION: Yes Soft to palpation, No Tenderness to palpation present (GI), No Guarding due to palpation present (GI) and Yes No hepatosplenomegaly present Extremity: COMMON NORMALS: normal to inspection, capillary refill normal, no clubbing, cyanosis or edema, no calf tenderness and no pedal edema Neuro: SENSORIUM/ORIENTATION: Yes oriented to person, Yes oriented to place and Yes oriented to time Skin: COMMON NORMALS: no rashes or lesions noted GENERAL SKIN EXAM: no rashes or lesions noted Course Vital Signs: Vital signs: Vital Signs Temperature 97.4 F L 06/28/20 11:14 Pulse Rate 89 06/28/20 11:35 Respiratory Rate 18 06/28/20 11:32 Blood Pressure 122/82 06/28/20 11:14 Pulse Oximetry 97 06/28/20 11:32 MDM - SOB/Dyspnea MDM Narrative: Medical decision making narrative: She has significant exacerbation COPD as well as other comorbid conditions cussed with Dr. Trujillo we will go ahead and admit to the hospital she is seen the patient and written orders. Lab Data: Labs: Lab Results 06/24/20 06/24/20 06/24/20 Range/Units 11:24 11:52 11:52 WBC 14.3 H (4.0-10.0) 10^3/ uL RBC 5.75 H (4.1-5.3) 10^6/u L Hgb 16.6 (11.7-16.6) g/dL Hct 53.4 H (42.0-52.0) % MCV 92.9 (80-94) fL MCH 28.9 (28.0-34.0) pg MCHC 31.1 (30.0-36.0) g/dL RDW 17.2 H (12.1-15.1) % Plt Count 223 (130-400) 10^3/c mm MPV 11.1 H (7.4-10.4) fL Neut % (Auto) 73.4 % Lymph % (Auto) 7.8 % [place] % (Auto) 6.2 % Eos % (Auto) 10.7 % Baso % (Auto) 0.8 % Neut # (Auto) 10.46 H (1.8-7.7) 10^3/u L Lymph # (Auto) 1.1 (0.8-4.8) 10^3/u L [place] # (Auto) 0.9 (0.2-0.9) 10^3/u L Eos # (Auto) 1.5 H (0.0-0.8) 10^3/u L Baso # (Auto) 0.1 (0.0-0.1) 10^3/u L Nucleated RBC % (a uto) 0 % Nucleated RBCs # 0.0 /100WBC Specimen Type Arterial Sample Site Brachial, left ABG pH 7.41 (7.35-7.45) ABG pCO2 53.0 H (35-45) mmHg ABG pO2 51.0 L (80.0-100.0) mmH g ABG HCO3 33.3 H (22-26) mmol/L ABG O2 Saturation 88.5 ABG Base Excess 6.6 H (-2.0-2.0) mmol/ L Jj Test Pos A-a O2 Gradient 4.7 L (5-10) mmHg Hematocrit 51.3 (42-52) % Hgb O2 Saturation 83.5 L (95-100) % Carboxyhemoglobin 5.3 (0.4-20.1) %THgb Methemoglobin 0.3 L (0.4-1.5) % Total Hemoglobin 16.7 (14-18) g/dL Sodium 141.0 141 (131-143) mmol/L Potassium 4.6 4.8 (3.5-5.0) mmol/L Glucose 237.0 H 250 H (70-115) mg/dL Ionized Calcium 1.2 (1.1-1.4) mmol/L O2 Delivery Device Room air O2 Liters/Min % FiO2 21.0 % Head Of Operation And Logistics ID Cak Chloride 101 (98-107) mmol/L Carbon Dioxide 32 H (22-29) mmol/L Anion Gap 12.8 (5-19) BUN 20 (6-20) mg/dL Creatinine 0.7 (0.7-1.2) mg/dL GFR Calculation 116.7 (90-130) mL/min Calculated Osmolal ity 303 H (285-295) mOsm/k g Calcium 9.0 (8.5-10.5) mg/dL Total Bilirubin 0.5 (0.15-1.2) mg/dL AST 26 (0-40) U/L ALT 38 (0-41) U/L Alkaline Phosphata se 79 (40-130) IU/L Total Protein 6.6 (6.6-8.7) g/dL Albumin 3.8 (3.5-5.2) g/dL Globulin 2.8 (1.3-4.6) g/dL 06/24/20 Range/Units 15:21 WBC (4.0-10.0) 10^3/ uL RBC (4.1-5.3) 10^6/u L Hgb (11.7-16.6) g/dL Hct (42.0-52.0) % MCV (80-94) fL MCH (28.0-34.0) pg MCHC (30.0-36.0) g/dL RDW (12.1-15.1) % Plt Count (130-400) 10^3/c mm MPV (7.4-10.4) fL Neut % (Auto) % Lymph % (Auto) % [place] % (Auto) % Eos % (Auto) % Baso % (Auto) % Neut # (Auto) (1.8-7.7) 10^3/u L Lymph # (Auto) (0.8-4.8) 10^3/u L [place] # (Auto) (0.2-0.9) 10^3/u L Eos # (Auto) (0.0-0.8) 10^3/u L Baso # (Auto) (0.0-0.1) 10^3/u L Nucleated RBC % (a uto) % Nucleated RBCs # /100WBC Specimen Type Arterial Sample Site Radial, right ABG pH 7.38 (7.35-7.45) ABG pCO2 60.3 H* (35-45) mmHg ABG pO2 75.3 L (80.0-100.0) mmH g ABG HCO3 35.6 H (22-26) mmol/L ABG O2 Saturation 96.0 ABG Base Excess 7.8 H (-2.0-2.0) mmol/ L Jj Test Pos A-a O2 Gradient 6.8 (5-10) mmHg Hematocrit 52.0 (42-52) % Hgb O2 Saturation 91.6 L (95-100) % Carboxyhemoglobin 4.0 (0.4-20.1) %THgb Methemoglobin 0.6 (0.4-1.5) % Total Hemoglobin 17.0 (14-18) g/dL Sodium 142.0 (131-143) mmol/L Potassium 4.6 (3.5-5.0) mmol/L Glucose 235.0 H (70-115) mg/dL Ionized Calcium 1.2 (1.1-1.4) mmol/L O2 Delivery Device Nc O2 Liters/Min 2.0 % FiO2 28.0 % Head Of Operation And Logistics ID glc Chloride (98-107) mmol/L Carbon Dioxide (22-29) mmol/L Anion Gap (5-19) BUN (6-20) mg/dL Creatinine (0.7-1.2) mg/dL GFR Calculation (90-130) mL/min Calculated Osmolal ity (285-295) mOsm/k g Calcium (8.5-10.5) mg/dL Total Bilirubin (0.15-1.2) mg/dL AST (0-40) U/L ALT (0-41) U/L Alkaline Phosphata se (40-130) IU/L Total Protein (6.6-8.7) g/dL Albumin (3.5-5.2) g/dL Globulin (1.3-4.6) g/dL Discharge Plan Discharge Admit Provider: Maribel Selby Clinical Impression: Acute exacerbation of chronic obstructive airways disease, COPD (chronic obstructive pulmonary disease), Hypertension, Obstructive sleep apnea, Ischemic cardiomyopathy, Hyperlipidemia, Insulin dependent diabetes mellitus, 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 2 diabetes mellitus Condition: Stable Coding Level of Care Code ED Branch Manager for Chg Fwd Exam Comprehensive
[2020-06-24 11:35] LABS: ABG PH Result 7.41 (7.35-7.45); Alveolar-Arterial Oxygen Gradi 4.7 mmHg (5-10); Arterial Blood Gas Hematocrit 51.3 % (42-52); Base Excess ABG 6.6 mmol/L (-2.0-2.0); Blood Gas Allen Test Pos; Blood Gas Operator Identificat CAK; Blood Gas Sample Site Brachial, left; Blood Gas Sample Type Arterial; Carboxyhemoglobin 5.3 %THgb (0.4-20.1); HCO3 ABG 33.3 mmol/L (22-26); HGB O2 Sat 83.5 % (95-100); Ionized Calcium Level - ABG 1.2 mmol/L (1.1-1.4); Methemoglobin 0.3 % (0.4-1.5); Oxygen Device ROOM AIR; Oxygen Saturation ABG 88.5; Potassium Level - ABG 4.6 mmol/L (3.5-5.0); Total Hemoglobin 16.7 g/dL (14-18)
[2020-06-24 11:58] LABS: Basophils # 0.1 10^3/uL (0.0-0.1); Basophils % 0.8 %; Eosinophils # 1.5 10^3/uL (0.0-0.8); Eosinophils % 10.7 %; Hematocrit 53.4 % (42.0-52.0); Hemoglobin 16.6 g/dL (11.7-16.6); Lymphocytes # 1.1 10^3/uL (0.8-4.8); Lymphocytes % 7.8 %; Mean Corpuscular HGB Conc 31.1 g/dL (30.0-36.0); Mean Corpuscular Hemoglobin 28.9 pg (28.0-34.0); Mean Corpuscular Volume 92.9 fL (80-94); Mean Platelet Volume 11.1 fL (7.4-10.4); Monocytes # 0.9 10^3/uL (0.2-0.9); Monocytes % 6.2 %; Neutrophils # 10.46 10^3/uL (1.8-7.7); Neutrophils % 73.4 %; Nucleated Red Blood Cells % 0 %; Platelet Count 223 10^3/cmm (130-400); Red Blood Count 5.75 10^6/uL (4.1-5.3); Red Cell Distribution Width 17.2 % (12.1-15.1); White Blood Count 14.3 10^3/uL (4.0-10.0)
[2020-06-24] MEDS: LORazepam 2 mg/mL INJ 1 mL IVP (12:16)
--- NOTE | 2020-06-24 12:16 | PC.NURSE ---
Addendum entered by Jasmyn Velásquez RN 06/24/20 12:27: Ativan 1 mg was wasted in the pix. When i went to scan med in pt room noticed the med was for 2 mg , not 1 mg. Noted the error. Documented not give Then reordered with correct dose. Juani Rivera helped me to order the correct dose. New correct dose was ordered. Antoinette wasted both times with me and Rl Mercedes witnessed me waste the original 1 mg that was not given to the pt. Original Note: Verbal order for Ativan 1 mg. When ordered it was switched to 1 mg but the order showed [address] Rubalcava want 1 mg. Will reorder Ativan 1 mg. Ramona wasted 1 mg with me
[2020-06-24 12:25] LABS: Alanine Aminotransferase 38 U/L (0-41); Albumin Level 3.8 g/dL (3.5-5.2); Alkaline Phosphatase 79 IU/L (40-130); Blood Urea Nitrogen 20 mg/dL (6-20); Carbon Dioxide 32 mmol/L (22-29); Chloride 101 mmol/L (98-107); Globulin 2.8 g/dL (1.3-4.6); Glomerular Filtration Rate 116.7 mL/min (90-130); Glucose 250 mg/dL (65-115); Osmolality Calculated 303 mOsm/kg (285-295); Sodium 141 mmol/L (136-145); Total Bilirubin 0.5 mg/dL (0.15-1.2); Total Protein 6.6 g/dL (6.6-8.7)
[2020-06-24 12:26] LABS: Anion Gap 12.8 (5-19); Aspartate Amino Transferase 26 U/L (0-40); Potassium 4.8 mmol/L (3.5-5.1)
[2020-06-24] MEDS: LORazepam 2 mg/mL INJ 1 mL 1 MG IVP (13:07)
--- NOTE | 2020-06-24 13:14 | PC.NURSE ---
Pt put on Bpap. 22/02 & 30 %, 95 % sats
[2020-06-24] MEDS: ipratropium-albuterol 3 mL Neb INHALATION ×3 (14:35→23:07)
[2020-06-24 15:31] LABS: ABG PH Result 7.38 (7.35-7.45); Alveolar-Arterial Oxygen Gradi 6.8 mmHg (5-10); Base Excess ABG 7.8 mmol/L (-2.0-2.0); Blood Gas Allen Test Pos; Blood Gas Operator Identificat glc; Blood Gas Sample Site Radial, right; Blood Gas Sample Type Arterial; HCO3 ABG 35.6 mmol/L (22-26); HGB O2 Sat 91.6 % (95-100); Ionized Calcium Level - ABG 1.2 mmol/L (1.1-1.4); Methemoglobin 0.6 % (0.4-1.5); Oxygen Device NC; PO2 ABG 75.3 mmHg (80.0-100.0); Potassium Level - ABG 4.6 mmol/L (3.5-5.0)
[2020-06-24 15:32] LABS: ABG PCO2 60.3 mmHg (35-45)
--- NOTE | 2020-06-24 17:22 | P.HP_ITS ---
Providers/Chief Complaint Admitting Physician: Maribel Selby MD Primary Care Provider: Karla Ryan MD Chief Complaint: SOB History of Present Illness Param Tejada is a 55 year old male with PMHx noted below presents with complaints of ongoing shortness of breath for what he describes as the past 6 weeks. He is a somewhat limited historian partly because he is reluctant to provide further details without a lot of encouragement. He is not oxygen dependent at baseline though has known COPD. He states that he had recently quit smoking approximately 2 days ago, was previously smoking 1 pack a day and has been using Chantix to help him quit. He has established care with Dr. Hernandez and is in the process of getting pulmonary function testing done. Is unclear how compliant he has been with his treatment including his inhalers. He was admitted to our facility last month for an acute COPD exacerbation and per visit with Dr. Hernandez had been prescribed a short course of steroids and antibiotics. He describes having had intermittently productive cough of those and able to tell me the color of the sputum, is unable to walk more than 5 feet without increased shortness of breath. He does have known obstructive sleep apnea but has been noncompliant with CPAP. Work-up here indicates white count of 14.3, hemoglobin of 16.6, normal electrolytes and renal function, blood glucose of 250, initial ABG showing significant hypercapnia and hypoxia. He was trialed on BiPAP which reportedly did not go well as he kept pulling off the mask. He is currently on 2 L nasal cannula and saturating in the mid to high 90s. During the time of my encounter and thereafter while still in the ER observe the patient repeatedly removing his nasal cannula despite frequent reminders to keep it on. Chest x-ray shows hyperinflation but no dense consolidation or other indication of infection. He has received a dose of IV steroids, nebulizer treatments and a dose of Ativan. He is willing to try BiPAP again once I explained that this would be quite helpful to open up his airway and help with the hypercapnia but once again it is unclear what this will translate into in reality. Vital signs are otherwise stable and he is currently afebrile. Due to acute COPD exacerbation with need for supplemental oxygen and continued monitoring of respiratory status will be admitted to the hospital for further care. He denies contact with any known COVID-19 individuals and rapid testing is negative. Review of Systems Const: Denies: fever(s), chills or change in appetite Eyes: Denies: change in vision ENMT: Denies: odynophagia, hoarseness, nasal discharge or nasal congestion Card: Reports: dyspnea on exertion; Denies: chest pain, swelling of feet/ankles or lightheadedness Resp: Reports: productive cough (unknown color of sputum); Denies: dyspnea GI: Denies: abdominal pain, nausea, vomiting, hematemesis, diarrhea or hematochezia : Denies: dysuria, urinary frequency or hematuria Musc: Denies: back pain Skin/Breast: Denies: rash Neuro: Denies: numbness in extremities or weakness in extremities Psych: Denies: anxiety Medications/Allergies Home Medications Medication Instructions Recorded Confirmed Last Taken Type albuterol sulfate 5 mg/mL(0.5 %) 2.5 mg INHALATION Q4H PRN 04/05/20 06/24/20 Unknown History solution for nebulization albuterol sulfate 90 mcg/actuation 1 inh INHALATION QID 04/05/20 06/24/20 Unknown History aerosol inhaler aspirin 81 mg tablet,delayed 81 mg PO DAILY 04/05/20 06/24/20 Unknown History release atorvastatin 80 mg tablet 80 mg PO DAILY 04/05/20 06/24/20 Unknown History furosemide 20 mg tablet 20 mg PO DAILY 04/05/20 06/24/20 Unknown History gabapentin 600 mg tablet 600 mg PO TID 04/05/20 06/24/20 Unknown History insulin glargine 100 unit/mL (3 65 unit SUBCUT DAILY 04/05/20 06/24/20 Unknown History mL) subcutaneous pen metformin 500 mg tablet 500 mg PO BID 04/05/20 06/24/20 Unknown History methocarbamol 500 mg tablet 500 mg PO BEDTIME 04/05/20 06/24/20 Unknown History nitroglycerin 0.4 mg sublingual 0.4 mg SUBLINGUAL Q5M PRN 04/05/20 06/24/20 Unknown History tablet ticagrelor 90 mg tablet 90 mg PO BID 04/05/20 06/24/20 Unknown History tramadol 50 mg tablet 50 mg PO Q6H PRN 04/05/20 06/24/20 Unknown History budesonide-formoterol HFA 160 2 puff INHALATION BID 06/08/20 06/24/20 Unknown History mcg-4.5 mcg/actuation aerosol inhaler tiotropium bromide 2.5 2 puff INHALATION DAILY 06/08/20 06/24/20 Unknown History mcg/actuation mist for inhalation prednisone 10 mg tablets in a dose See Rx Instructions PO PER PKG DIR 06/16/20 06/24/20 Unknown Rx pack #21 each acetaminophen 1,000 mg PO TID PRN 06/24/20 06/24/20 Unknown History benzonatate 200 mg PO TID PRN 06/24/20 06/24/20 Unknown History cetirizine 10 mg PO DAILY 06/24/20 06/24/20 Unknown History empagliflozin [Jardiance] 25 mg PO DAILY 06/24/20 06/24/20 Unknown History insulin aspart U-100 [Novolog 16 unit SUBCUT TID 06/24/20 06/24/20 Unknown History Flexpen U-100 Insulin] ipratropium-albuterol 3 ml INHALATION QID PRN 06/24/20 06/24/20 Unknown History metoprolol tartrate 25 mg PO BID 06/24/20 06/24/20 Unknown History semaglutide [Ozempic] 1 mg SUBCUT Q7D 06/24/20 06/24/20 Unknown History Allergies Allergy/AdvReac Type Severity Reaction Status Date / Time Sulfa (Sulfonamide Allergy ALGY-Anaphy Verified 06/24/20 10:57 Antibiotics) laxis PFSH Acute PFSH: Medical History (Updated 06/24/20 @ 19:44 by Maribel Selby MD) 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 2 diabetes mellitus COPD (chronic obstructive pulmonary disease) -not oxygen dependent Hyperlipidemia Hypertension 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 dependent diabetes mellitus Ischemic cardiomyopathy Morbid obesity Obstructive sleep apnea -non compliant with CPAP ST elevation myocardial infarction (STEMI) of inferior wall Tobacco abuse Surgical History (Updated 06/24/20 @ 17:50 by Maribel Selby MD) History of cardiac defibrillator placement History of coronary artery stent placement -hx of CAD with inferior wall NE s/p RCA stent, LAD stent Family History (Updated 06/24/20 @ 17:50 by Maribel Selby MD) Denies family history of CAD (coronary artery disease) Social History Smoking and tobacco status: current every day smoker cigarettes Packs smoked per day: 1 Years cigarettes smoked: 40 Quit status (tobacco): considering quitting Alcohol intake: never Lives independently: Yes Household members: none Marital status: Single service: Yes Current occupational status: disabled Pets and animals: Yes Pets & animals: dog(s) History of recent travel: No Current gender identity: Male Vitals/I&O/Wt Last Vital Signs Temp 98.4 F 06/24/20 10:49 Pulse 105 H 06/24/20 16:27 Resp 20 H 06/24/20 16:27 BP 123/91 06/24/20 16:27 Pulse Ox 97 06/24/20 16:27 Weight last 48 hrs Weight 117.934 kg Physical Exam Const: COMMON NORMALS: no acute distress, patient oriented x3 and alert GENERAL APPEARANCE: cooperative and comfortable NUTRITIONAL APPEARANCE: obese centrally obese ORIENTATION/CONSCIOUSNESS: Yes awake HENMT: COMMON NORMALS: normocephalic, atraumatic, hearing grossly normal bilaterally and moist oral mucous membranes HEAD & SCALP: normocephalic and atraumatic Eye: COMMON NORMALS: Equal, round and reactive pupils present, EOMs intact bilaterally and conjunctivae normal CONJUNCTIVA: Yes conjunctivae normal PUPIL: Yes Equal, round and reactive pupils present Neck/C-Spine: COMMON NORMALS: full ROM GENERAL: Yes normal visual inspection and Yes trachea midline Resp: COMMON NORMALS: normal respiratory effort, No retractions and No use of accessory muscles EFFORT & INSPECTION: Yes symmetric chest movement and Yes tachypneic AUSCULTATION: diminished lung sounds diffuse OTHER: - Conversational dyspnea, on 2 L NC, desaturates quickly with minimal exertion Cardio: COMMON NORMALS: regular rate, regular rhythm, S1 normal heart sound present, S2 normal heart sound present and No murmurs present (Cardio) RATE: regular rate RHYTHM: regular rhythm HEART SOUNDS: S1 normal heart sound present and S2 normal heart sound present GI: COMMON NORMALS: Normal to inspection, nondistended, normoactive bowel sounds present, Soft to palpation and non-tender INSPECTION: Yes central obesity PALPATION: Yes Soft to palpation Extremity: COMMON NORMALS: normal to inspection, full ROM and no clubbing, cyanosis or edema; negative for no pedal edema Neuro: COMMON NORMALS: patient oriented x3, moves all extremities, no focal motor deficits, no sensory deficits noted and gait normal Psych: COMMON NORMALS: mental status grossly normal, Normal thought process present, cooperative, normal affect and speech normal SPEECH: Yes normal speech THOUGHT PROCESS: Normal thought process present Skin: COMMON NORMALS: no rashes or lesions noted, no jaundice, no petechiae and no mottling GENERAL SKIN EXAM: no rashes or lesions noted Data : 06/24/20 11:52 06/24/20 11:52 A&P Assessment and plan (1) Acute exacerbation of chronic obstructive airways disease: -Acute exacerbation of COPD, not oxygen dependent at baseline -Currently requiring supplemental oxygen support; failed trial of BiPAP due to noncompliance with mask wearing -Has known history of chronic hypercapnic respiratory failure -Noted hypercapnia and hypoxia on serial ABGs -High risk for decompensation and low threshold for intubation -We will try BiPAP again if patient agreeable; supplemental oxygen as needed, home oxygen evaluation prior to discharge if appropriate -Chest x-ray shows hyperinflation, otherwise no indication of acute infection -Close monitoring of respiratory status -Neb treatments, antitussives PRN -rapid COVID-19 testing negative -continue IV steroids, empiric antibiotics Status: Acute (2) Chronic hypercapnic respiratory failure: -follows up with pulmonology Dr. Hernandez Status: Chronic (3) Hypertension: -monitor vital signs -resume oral antihypertensives Status: Chronic Qualifiers: Hypertension type: essential hypertension Qualified Code(s): I10 - Essential (primary) hypertension (4) Obstructive sleep apnea: -non-compliant with CPAP Status: Chronic (5) Tobacco abuse: -endorses quitting smoking 2 days ago -previously smoked 1 PPD Status: Chronic (6) Ischemic cardiomyopathy: -hx of ICD placement, stenting of LAD and RCA -Echo (09/2018): EF=40%, G3DD, mild MR -resume ASA, statin, BB, Brilinta -follows up with cardiology Status: Chronic (7) Hyperlipidemia: -resume statin Status: Chronic Qualifiers: Hyperlipidemia type: unspecified Qualified Code(s): E78.5 - Hyperl ipidemia, unspecified (8) Insulin dependent diabetes mellitus: -check A1c -Accucheks, ISS, resume scheduled insulin, hypoglycemia precautions -cardiac consistent carb diet Status: Chronic (9) 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 2 diabetes mellitus: -baseline Cr is around 1 Status: Chronic Additional A&P Information -Chronic combined systolic and diastolic CHF; no acute exacerbation, Echo as noted above, resume oral diuretics -Morbid obesity: BMI-43 kg/m2 -GI ppx with famotidine -DVT ppx with lovenox -Dispo: home -Code status: FULL code -admit to medical surgical floor Attestations Medical Necessity Statement*: [facility] stay will require greater than 2 midnights for management of acute COPD exacerbation currently requiring close monitoring of respiratory status, IV steroids, empiric antibiotics with low threshold for decompensation. Time Spent in Patient Care: Greater than 35 minutes (>than 50% of time spent in counselling and/or direct pt care on unit) . 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
[2020-06-24 18:49] LABS: SARS Covid-2 Antigen Negative (Negative)
[2020-06-24 20:26] LABS: Glucose Point of Care 340 mg/dL (70-110)
--- NOTE | 2020-06-24 21:50 | PC.NURSE ---
HS dose of sliding scale Novolog held per Dr. Haley orders.
[2020-06-24] MEDS: enoxaparin 40 mg/0.4 mL Syringe SUBCUT (21:56)
[2020-06-24] MEDS: famotidine 20 mg Tablet PO (21:57)
[2020-06-24] MEDS: metoprolol tartrate 25 mg Tablet PO (21:57)
[2020-06-24] MEDS: gabapentin 300 mg Capsule 600 MG PO (21:58)
[2020-06-24] MEDS: atorvastatin 40 mg Tablet 80 MG PO (21:58)
[2020-06-24] MEDS: ticagrelor 90 mg Tablet PO (21:58)
[2020-06-24] MEDS: insulin glargine 100 units/1 mL 65 UNIT SUBCUT (23:16)
[2020-06-24] MEDS: methocarbamol 500 mg Tablet PO (23:17)
[2020-06-25] VITALS (16 sets, daily range): BP systolic 110–141; BP diastolic 71–91; PULSE 71–91; RESP 14–24; TEMP 36.2–36.9; O2SAT 92–97; BMI 43.2
[2020-06-25] MEDS: ipratropium-albuterol 3 mL Neb INHALATION ×4 (04:12→20:11)
[2020-06-25 06:03] LABS: Basophils # 0.1 10^3/uL (0.0-0.1); Basophils % 0.4 %; Eosinophils % 0.2 %; Hematocrit 53.1 % (42.0-52.0); Hemoglobin 16.3 g/dL (11.7-16.6); Lymphocytes # 0.5 10^3/uL (0.8-4.8); Mean Corpuscular HGB Conc 30.7 g/dL (30.0-36.0); Mean Corpuscular Hemoglobin 29.1 pg (28.0-34.0); Mean Corpuscular Volume 94.7 fL (80-94); Mean Platelet Volume 11.1 fL (7.4-10.4); Monocytes # 0.3 10^3/uL (0.2-0.9); Neutrophils # 11.37 10^3/uL (1.8-7.7); Neutrophils % 92.3 %; Nucleated Red Blood Cells % 0 %; Platelet Count 215 10^3/cmm (130-400); Red Blood Count 5.61 10^6/uL (4.1-5.3); Red Cell Distribution Width 17.6 % (12.1-15.1); White Blood Count 12.3 10^3/uL (4.0-10.0)
[2020-06-25 06:40] LABS: Glucose Point of Care 182 mg/dL (70-110)
[2020-06-25 06:50] LABS: Estmated Average Glucose 171; Hemoglobin A1C 7.6 % (4.0-6.0)
[2020-06-25 06:52] LABS: Alanine Aminotransferase 34 U/L (0-41); Albumin Level 3.7 g/dL (3.5-5.2); Alkaline Phosphatase 77 IU/L (40-130); Anion Gap 13.1 (5-19); Aspartate Amino Transferase 21 U/L (0-40); Blood Urea Nitrogen 23 mg/dL (6-20); Calcium 9.2 mg/dL (8.5-10.5); Carbon Dioxide 32 mmol/L (22-29); Chloride 103 mmol/L (98-107); Globulin 2.7 g/dL (1.3-4.6); Glomerular Filtration Rate 116.7 mL/min (90-130); Glucose 186 mg/dL (65-115); Osmolality Calculated 305 mOsm/kg (285-295); Potassium 5.1 mmol/L (3.5-5.1); Sodium 143 mmol/L (136-145); Total Bilirubin 0.4 mg/dL (0.15-1.2); Total Protein 6.4 g/dL (6.6-8.7)
[2020-06-25] MEDS: aspirin 81 mg EC Tablet PO (08:57)
[2020-06-25] MEDS: azithromycin 250 mg Tablet 500 MG PO (08:57)
[2020-06-25] MEDS: famotidine 20 mg Tablet PO ×2 (08:57→17:38)
[2020-06-25] MEDS: metoprolol tartrate 25 mg Tablet PO ×2 (08:58→17:39)
[2020-06-25] MEDS: FUROsemide 20 mg Tablet PO (08:58)
[2020-06-25] MEDS: cetirizine 10 mg Tablet PO (08:58)
[2020-06-25] MEDS: gabapentin 300 mg Capsule 600 MG PO ×3 (08:58→21:27)
[2020-06-25] MEDS: ticagrelor 90 mg Tablet PO ×2 (09:43→17:39)
[2020-06-25 11:14] LABS: Glucose Point of Care 279 mg/dL (70-110)
--- NOTE | 2020-06-25 12:11 | P.PN_ITS ---
Subjective Subjective: Interval history: Seems to have worn BiPAP for short period of time overnight, currently on 3 L nasal cannula, hemodynamically stable and afebrile. Improvement in leukocytosis with white count of 12.3 this morning, stable electrolytes and renal function. Accu-Cheks reviewed. Had 175 mL urine output overnight. Reports that he has been using BiPAP more often than not, parag dowd currently on 4 L nasal cannula. Does feel better though is still quite short of breath with minimal exertion. He is wheezing diffusely though air entry has improved on auscultation. He is also having more expectoration with cough. He requests nicotine patch. Medications: Reviewed: Yes Medication Review Details: Active Medications Generic Name Dose Route Start Last Admin Trade Name Freq PRN Reason Stop Dose Admin Acetaminophen 650 mg 06/24/20 20:18 Acetaminophen 32 5 Mg Tablet PO Q6H PRN Mild/Mod Pain Or Temp >/= 101 Albuterol/Ipratrop ium 3 ml 06/24/20 20:18 06/25/20 07:59 Ipratropium-Albu terol 3 Ml Neb INHALATION 3 ml QID PRN Administration Shortness Of Ashlie th Aspirin 81 mg 06/25/20 09:00 06/25/20 08:57 Aspirin 81 Mg Ec Tablet PO 81 mg DAILY VIRA Administration Atorvastatin Calci um 80 mg 06/24/20 21:00 06/24/20 21:58 Atorvastatin 40 Mg Tablet PO 80 mg BEDTIME VIRA Administration Azithromycin 500 mg 06/25/20 09:00 06/25/20 08:57 Azithromycin 250 Mg Tablet PO 500 mg DAILY VIRA Administration Protocol Benzonatate 200 mg 06/24/20 20:18 Benzonatate 100 Mg Capsule PO TID PRN Cough Cetirizine HCl 10 mg 06/25/20 09:00 06/25/20 08:58 Cetirizine 10 Mg Tablet PO 10 mg DAILY VIRA Administration Dextrose 25 ml 06/24/20 20:18 Dextrose 50% Syr manasa 50 Ml IVP ONCE PRN hypoglycemia prot ocol Protocol Dextrose 50 ml 06/24/20 20:18 Dextrose 50% Syr manasa 50 Ml IVP PRN PRN hypoglycemia prot ocol Protocol Enoxaparin Sodium 40 mg 06/24/20 20:18 06/24/20 21:56 Enoxaparin 40 Mg /0.4 Ml Syringe SUBCUT 40 mg Q24H VIRA Administration Famotidine 20 mg 06/24/20 20:18 06/25/20 08:57 Famotidine 20 Mg Tablet PO 20 mg BID VIRA Administration Furosemide 20 mg 06/25/20 09:00 06/25/20 08:58 Furosemide 20 Mg Tablet PO 20 mg DAILY VIRA Administration Gabapentin 600 mg 06/24/20 21:00 06/25/20 08:58 Gabapentin 300 M g Capsule PO 600 mg TID VIRA Administration Glucagon 1 mg 06/24/20 20:18 Glucagon 1 Mg/Ml Inj 1 Ml IM ONCE PRN Adult Acute Hypog lycemia Prot. Protocol Dextrose 500 mls @ 100 mls /hr 06/24/20 20:18 D5w IV ONCE PRN Adult Acute Hypog lycemia Prot Protocol Insulin Aspart 0 unit 06/24/20 21:00 06/25/20 08:56 Insulin Aspart 1 00 Unit/1 Ml SUBCUT 6 unit WM&BEDTIME VIRA Administration Protocol Insulin Aspart 16 unit 06/24/20 21:00 06/25/20 09:04 Insulin Aspart 1 00 Unit/1 Ml SUBCUT 16 unit TID [facility] Administration Insulin Glargine 65 unit 06/24/20 21:00 06/24/20 23:16 Insulin Glargine 100 Units/1 Ml SUBCUT 65 unit BEDTIME [facility] Administration Methocarbamol 500 mg 06/24/20 21:00 06/24/20 23:17 Methocarbamol 50 0 Mg Tablet PO 500 mg BEDTIME VIRA Administration Methylprednisolone Sodium Succinate 60 mg 06/24/20 20:18 06/25/20 08:56 Methylprednisolo ne Sod Succ 125 Mg /2 Ml Inj IVP 60 mg Q6H [facility] Administration Metoprolol Tartrat e 25 mg 06/24/20 20:18 06/25/20 08:58 Metoprolol Tartr ate 25 Mg Tablet PO 25 mg BID [facility] Administration Nitroglycerin 0.4 mg 06/24/20 20:18 Nitroglycerin 0. 4 Mg Sublingual Ta blet SUBLINGUAL Q5M PRN Chest Pain Ondansetron HCl 4 mg 06/24/20 20:18 Ondansetron 2 Mg /Ml Sdv 2 Ml IVP Q6H PRN vomiting, or N/V if npo Ticagrelor 90 mg 06/24/20 20:18 06/25/20 09:43 Ticagrelor 90 Mg Tablet PO 90 mg BID VIRA Administration Tramadol HCl 50 mg 06/24/20 20:18 Tramadol 50 Mg T ablet PO Q6H PRN Moderate pain Sulfa (Sulfonamide Antibiotics) Allergy (Verified 06/24/20 10:57) ALGY-Anaphylaxis Vitals/I&O/Wt Last Vital Signs Temp 97.9 F 06/25/20 07:43 Pulse 88 06/25/20 11:06 Resp 18 06/25/20 08:01 BP 119/83 06/25/20 07:43 Pulse Ox 94 06/25/20 11:06 06/24/20 06/25/20 06/25/20 22:59 06:59 14:59 Intake Total 360 / 360 Output Total 0 / 0 175 / 175 Balance 0 / 0 -175 / -175 360 / 360 Weight last 48 hrs Weight 117.934 kg Weight 117.934 kg Physical Exam Const: COMMON NORMALS: no acute distress, patient oriented x3 and alert GENERAL APPEARANCE: cooperative and comfortable NUTRITIONAL APPEARANCE: obese centrally obese ORIENTATION/CONSCIOUSNESS: Yes awake HENMT: COMMON NORMALS: normocephalic, atraumatic, hearing grossly normal bila terally and moist oral mucous membranes HEAD & SCALP: normocephalic and a traumatic Eye: COMMON NORMALS: Equal, round and reactive pupils present, EOMs intact bilaterally and conjunctivae normal CONJUNCTIVA: Yes conjunctivae normal PUPIL: Yes Equal, round and reactive pupils present Neck/C-Spine: COMMON NORMALS: full ROM GENERAL: Yes normal visual inspection and Yes trachea midline Resp: COMMON NORMALS: normal respiratory effort, No retractions and No use of accessory muscles EFFORT & INSPECTION: Yes symmetric chest movement and Yes tachypneic AUSCULTATION: wheezes expiratory wheezes and throughout and diminished lung sounds diffuse OTHER: -Conversational dyspnea, on 4 L NC, desaturates quickly with minimal exertion. Overall, air entry has improved Cardio: COMMON NORMALS: regular rate, regular rhythm, S1 normal heart sound present, S2 normal heart sound present and No murmurs present (Cardio) RATE: regular rate RHYTHM: regular rhythm HEART SOUNDS: S1 normal heart sound present and S2 normal heart sound present GI: COMMON NORMALS: Normal to inspection, nondistended, normoactive bowel sounds present, Soft to palpation and non-tender INSPECTION: Yes central obesity PALPATION: Yes Soft to palpation Extremity: COMMON NORMALS: normal to inspection, full ROM and no clubbing, cyanosis or edema; negative for no pedal edema Neuro: COMMON NORMALS: patient oriented x3, moves all extremities, no focal motor deficits, no sensory deficits noted and gait normal SENSORIUM/ORIENTATION: Yes alert Psych: COMMON NORMALS: mental status grossly normal, Normal thought process present, cooperative, normal affect and speech normal SPEECH: Yes normal speech THOUGHT PROCESS: Normal thought process present Skin: COMMON NORMALS: no rashes or lesions noted, no jaundice, no petechiae and no mottling GENERAL SKIN EXAM: no rashes or lesions noted Data : 06/25/20 05:24 06/25/20 05:24 Micro: Microbiology 06/25/20 04:00 Gram Stain - Final Sputum - Expectorated Sputum 06/24/20 18:43 Blood Culture - Preliminary Blood SPECIMEN COLLECTED 06/24/20 18:40 Blood Culture - Preliminary Blood SPECIMEN COLLECTED A&P Assessment and plan (1) Acute exacerbation of chronic obstructive airways disease: -Acute exacerbation of COPD, not oxygen dependent at baseline -Currently requiring supplemental oxygen support vs. BiPAP with questionable compliance -Has known history of chronic hypercapnic respiratory failure -Noted hypercapnia and hypoxia on serial ABGs -High risk for decompensation and low threshold for intubation -home oxygen evaluation prior to discharge if appropriate -Chest x-ray shows hyperinflation, otherwise no indication of acute infection -Close monitoring of respiratory status -Neb treatments, antitussives PRN -rapid COVID-19 testing negative -continue IV steroids, empiric antibiotics -blood cx pending -sputum cx pending, gram stain shows few GPC in clusters Status: Acute (2) Chronic hypercapnic respiratory failure: -follows up with pulmonology Dr. 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 -previously smoked 1 PPD -nicotine replacement therapy Status: Chronic (6) Ischemic cardiomyopathy: -hx of ICD placement, stenting of LAD and RCA -Echo (09/2018): EF=40%, G3DD, mild MR -continue ASA, statin, BB, Brilinta -follows up with cardiology Status: Chronic (7) Hyperlipidemia: -continue statin Status: Chronic Qualifiers: Hyperlipidemia type: unspecified Qualified Code(s): E78.5 - Hyperlipidemia, unspecified (8) Insulin dependent diabetes mellitus: -A1c-7.6 -Accucheks, ISS, scheduled insulin, hypoglycemia precautions -cardiac consistent carb diet Status: Chronic (9) 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 2 diabetes mellitus: -baseline Cr is around 1 Status: Chronic Additional A&P Information -Chronic combined systolic and diastolic CHF; no acute exacerbation, Echo as noted above, continue oral diuretics -Morbid obesity: BMI-43 kg/m2 -GI ppx with famotidine -DVT ppx with lovenox -Dispo: home -Code status: FULL code Attestations Medical Necessity Statement*: Patient requires hospitalization for continued management of acute COPD exacerbation with need for continued close monitoring of respiratory status, IV steroids, supplemental oxygen support. Time Spent in Patient Care: 16 - 35 minutes (>than 50% of time spent in counselling and/or direct pt care on unit) . 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
--- NOTE | 2020-06-25 12:23 | PC.CHAP ---
Pastoral Care Encounter/Spiritual Assessment Type of Contact [] Declined clinic administrator visit [] Patient/Family/Request visit [] Outpatient visit [] Follow-up visit [] Physician referral [] Code/Alert [] Routine visit [] Staff referral [] Actively dying [X] Patient sleeping [] Family support [] [] Out of room [] Palliative care [] [] Receiving care in room [] Pre-surgical visit [] Trauma [] Long length of stay [] ICU visit [] Other: Relational/Emotional Strength [] Patient feels connected with others/family/visitors/staff [] Distress [] Loneliness/isolation [] Abandonment Spirituality of Patient [] Person of Lo [] Attends Mosque of their Lo [] Believes in Prayer [] Reads Bible or Judaism materials [] There are Spiritual issues to be addressed Mine Superintendent Interventions [] Prayer [] Active listening [] Non-anxious presence [] Spiritual/emotional support [] Crisis/trauma care [] Spiritual counseling [] Bereavement support [] Provided bereavement packet [] Provided Bible/devotional materials [] Provided toy/stuffed animal, coloring book to patient or family member [] Provided Communion [] Anointing/[place] [] Salvation [] Completed spiritual assessment [] Other: Impact on Illness or Injury [] Angry [] Fearful [] Anxious [] Often cries [] Exhaustion [] Unable to work [] Unable to attend islam [] Unable to walk/stand [] Unable to read [] Unable to drive [] Unable to eat/drink [] Unable to sleep [] Unable to be with family [] Patient intubated [] Other: Summary Time spent with patient
[2020-06-25] MEDS: nicotine 21 mg Patch 1 PATCH TRANSDERMA (15:29)
[2020-06-25 16:44] LABS: Glucose Point of Care 246 mg/dL (70-110)
[2020-06-25] MEDS: TRAMadol 50 mg Tablet PO (17:37)
[2020-06-25] MEDS: benzonatate 100 mg Capsule 200 MG PO (17:38)
[2020-06-25 20:55] LABS: Glucose Point of Care 146 mg/dL (70-110)
[2020-06-25] MEDS: enoxaparin 40 mg/0.4 mL Syringe SUBCUT (21:26)
[2020-06-25] MEDS: methocarbamol 500 mg Tablet PO (21:27)
[2020-06-25] MEDS: atorvastatin 40 mg Tablet 80 MG PO (21:27)
[2020-06-25] MEDS: insulin glargine 100 units/1 mL 65 UNIT SUBCUT (21:39)
--- NOTE | 2020-06-25 21:54 | PC.NURSE ---
Nurse called Dr. Haley for clarification of insulin orders. Pt glucose was 146 and had order for 16 units of novolog TID and 4 units slinding scale along with 65 units of Lantus. Provider orders were to admin the sliding scale 4 units and 65 of Lantus but hold the 16 Units of Novolog.
[2020-06-26] VITALS (20 sets, daily range): BP systolic 98–125; BP diastolic 70–80; PULSE 81–103; RESP 16–26; TEMP 36.4–37.2; O2SAT 91–98; BMI 44.8
[2020-06-26] MEDS: ipratropium-albuterol 3 mL Neb INHALATION ×7 (00:39→23:50)
[2020-06-26 05:35] LABS: Basophils % 0.1 %; Eosinophils % 0.1 %; Hematocrit 52.3 % (42.0-52.0); Lymphocytes # 0.5 10^3/uL (0.8-4.8); Lymphocytes % 2.1 %; Mean Corpuscular HGB Conc 30.6 g/dL (30.0-36.0); Mean Corpuscular Hemoglobin 28.7 pg (28.0-34.0); Mean Corpuscular Volume 93.9 fL (80-94); Monocytes # 0.7 10^3/uL (0.2-0.9); Neutrophils # 20.57 10^3/uL (1.8-7.7); Neutrophils % 93.6 %; Nucleated Red Blood Cells % 0 %; Platelet Count 238 10^3/cmm (130-400); Red Blood Count 5.57 10^6/uL (4.1-5.3); Red Cell Distribution Width 16.8 % (12.1-15.1)
[2020-06-26 05:59] LABS: Calcium 9.1 mg/dL (8.5-10.5); Carbon Dioxide 26 mmol/L (22-29)
[2020-06-26 06:20] LABS: Anion Gap 17.3 (5-19); Blood Urea Nitrogen 33 mg/dL (6-20); Chloride 102 mmol/L (98-107); Glomerular Filtration Rate 87.3 mL/min (90-130); Glucose 278 mg/dL (65-115); Osmolality Calculated 303 mOsm/kg (285-295); Sodium 138 mmol/L (136-145)
[2020-06-26 06:21] LABS: Potassium 5.3 mmol/L (3.5-5.1)
[2020-06-26 06:49] LABS: Glucose Point of Care 277 mg/dL (70-110)
[2020-06-26] MEDS: ticagrelor 90 mg Tablet PO ×2 (08:07→18:09)
[2020-06-26] MEDS: aspirin 81 mg EC Tablet PO (08:07)
[2020-06-26] MEDS: gabapentin 300 mg Capsule 600 MG PO ×3 (08:07→22:24)
[2020-06-26] MEDS: famotidine 20 mg Tablet PO ×2 (08:07→18:09)
[2020-06-26] MEDS: cetirizine 10 mg Tablet PO (08:07)
[2020-06-26] MEDS: nicotine 21 mg Patch 1 PATCH TRANSDERMA (08:07)
[2020-06-26] MEDS: azithromycin 250 mg Tablet 500 MG PO (08:07)
[2020-06-26] MEDS: FUROsemide 20 mg Tablet PO (08:08)
[2020-06-26] MEDS: metoprolol tartrate 25 mg Tablet PO ×2 (08:08→18:08)
[2020-06-26 12:00] LABS: Glucose Point of Care 89 mg/dL (70-110)
--- NOTE | 2020-06-26 13:12 | P.PN_ITS ---
Subjective Subjective: Interval history: Seems to be more compliant with use of BiPAP, currently on 4 L nasal cannula, had 375 mL urine output overnight, afebrile and hemodynamically stable. Noted increased leukocytosis which is likely steroid- induced. Sputum culture growing gram-negative rods so far. Seems more somnolent per nursing staff description, currently on BiPAP, very easily frustra benjamin when explained that he is not receiving his oral diabetes medications and is controlled with insulin while he is in the hospital. Noted acute urinary retention, per bladder scan is retaining at least 400 mL in his bladder so will place Burciaga catheter. Noted weight gain of approximately 9 pounds so we will need to increase diuresis. Medications: Reviewed: Yes Medication Review Details: Active Medications Generic Name Dose Route Start Last Admin Trade Name Freq PRN Reason Stop Dose Admin Acetaminophen 650 mg 06/24/20 20:18 Acetaminophen 32 5 Mg Tablet PO Q6H PRN Mild/Mod Pain Or Temp >/= 101 Albuterol/Ipratrop ium 3 ml 06/24/20 20:18 06/25/20 20:11 Ipratropium-Albu terol 3 Ml Neb INHALATION 3 ml QID PRN Administration Shortness Of Ashlie th Albuterol/Ipratrop ium 3 ml 06/26/20 00:00 06/26/20 11:18 Ipratropium-Albu terol 3 Ml Neb INHALATION 3 ml Q4H.RESPIRATORY S CH Administration Aspirin 81 mg 06/25/20 09:00 06/26/20 08:07 Aspirin 81 Mg Ec Tablet PO 81 mg DAILY VIRA Administration Atorvastatin Calci um 80 mg 06/24/20 21:00 06/25/20 21:27 Atorvastatin 40 Mg Tablet PO 80 mg BEDTIME VIRA Administration Azithromycin 500 mg 06/25/20 09:00 06/26/20 08:07 Azithromycin 250 Mg Tablet PO 500 mg DAILY VIRA Administration Protocol Benzonatate 200 mg 06/24/20 20:18 06/25/20 17:38 Benzonatate 100 Mg Capsule PO 200 mg TID PRN Administration Cough Cetirizine HCl 10 mg 06/25/20 09:00 06/26/20 08:07 Cetirizine 10 Mg Tablet PO 10 mg DAILY VIRA Administration Dextrose 25 ml 06/24/20 20:18 Dextrose 50% Syr manasa 50 Ml IVP ONCE PRN hypoglycemia prot ocol Protocol Dextrose 50 ml 06/24/20 20:18 Dextrose 50% Syr manasa 50 Ml IVP PRN PRN hypoglycemia prot ocol Protocol Enoxaparin Sodium 40 mg 06/24/20 20:18 06/25/20 21:26 Enoxaparin 40 Mg /0.4 Ml Syringe SUBCUT 40 mg Q24H VIRA Administration Famotidine 20 mg 06/24/20 20:18 06/26/20 08:07 Famotidine 20 Mg Tablet PO 20 mg BID VIRA Administration Furosemide 20 mg 06/25/20 09:00 06/26/20 08:08 Furosemide 20 Mg Tablet PO 20 mg DAILY VIRA Administration Gabapentin 600 mg 06/24/20 21:00 06/26/20 08:07 Gabapentin 300 M g Capsule PO 600 mg TID VIRA Administration Glucagon 1 mg 06/24/20 20:18 Glucagon 1 Mg/Ml Inj 1 Ml IM ONCE PRN Adult Acute Hypog lycemia Prot. Protocol Dextrose 500 mls @ 100 mls /hr 06/24/20 20:18 D5w IV ONCE PRN Adult Acute Hypog lycemia Prot Protocol Insulin Aspart 0 unit 06/24/20 21:00 06/26/20 12:06 Insulin Aspart 1 00 Unit/1 Ml SUBCUT Not Given WM&BEDTIME VIRA Protocol Insulin Aspart 16 unit 06/24/20 21:00 06/26/20 08:08 Insulin Aspart 1 00 Unit/1 Ml SUBCUT 16 unit TID VIRA Administration Insulin Glargine 65 unit 06/24/20 21:00 06/25/20 21:39 Insulin Glargine 100 Units/1 Ml SUBCUT 65 unit BEDTIME VIRA Administration Methocarbamol 500 mg 06/24/20 21:00 06/25/20 21:27 Methocarbamol 50 0 Mg Tablet PO 500 mg BEDTIME VIRA Administration Methylprednisolone Sodium Succinate 60 mg 06/24/20 20:18 06/26/20 12:56 Methylprednisolo ne Sod Succ 125 Mg /2 Ml Inj IVP 60 mg Q6H VIRA Administration Metoprolol Tartrat e 25 mg 06/24/20 20:18 06/26/20 08:08 Metoprolol Tartr ate 25 Mg Tablet PO 25 mg BID VIRA Administration Nicotine 1 patch 06/25/20 13:25 06/26/20 08:07 Nicotine 21 Mg P atch TRANSDERMA 1 patch DAILY VIRA Administration Nitroglycerin 0.4 mg 06/24/20 20:18 Nitroglycerin 0. 4 Mg Sublingual Ta blet SUBLINGUAL Q5M PRN Chest Pain Ondansetron HCl 4 mg 06/24/20 20:18 Ondansetron 2 Mg /Ml Sdv 2 Ml IVP Q6H PRN vomiting, or N/V if npo Ticagrelor 90 mg 06/24/20 20:18 06/26/20 08:07 Ticagrelor 90 Mg Tablet PO 90 mg BID VIRA Administration Tramadol HCl 50 mg 06/24/20 20:18 06/25/20 17:37 Tramadol 50 Mg T ablet PO 50 mg Q6H PRN Administration Moderate pain Sulfa (Sulfonamide Antibiotics) Allergy (Verified 06/24/20 10:57) ALGY-Anaphylaxis Vitals/I&O/Wt Last Vital Signs Temp 97.5 F L 06/26/20 11:52 Pulse 87 06/26/20 11:52 Resp 17 06/26/20 11:52 BP 117/79 06/26/20 11:52 Pulse Ox 95 06/26/20 11:52 06/25/20 06/26/20 06/26/20 22:59 06:59 14:59 Intake Total 240 / 600 240 / 840 600 / 600 Output Total 0 / 0 375 / 375 400 / 400 Balance 240 / 600 -135 / 465 200 / 200 Weight last 48 hrs Weight 122.152 kg Weight 117.934 kg Physical Exam Const: COMMON NORMALS: no acute distress, patient oriented x3 and alert GENERAL APPEARANCE: cooperative and comfortable NUTRITIONAL APPEARANCE: obese centrally obese ORIENTATION/CONSCIOUSNESS: Yes awake HENMT: COMMON NORMALS: normocephalic, atraumatic, hearing grossly normal bilaterally and moist oral mucous membranes HEAD & SCALP: normocephalic and atraumatic Eye: COMMON NORMALS: Equal, round and reactive pupils present, EOMs intact bilaterally and conjunctivae normal CONJUNCTIVA: Yes conjunctivae normal PUPIL: Yes Equal, round and reactive pupils present Neck/C-Spine: COMMON NORMALS: full ROM GENERAL: Yes normal visual inspection and Yes trachea midline Resp: COMMON NORMALS: normal respiratory effort, No retractions and No use of accessory muscles EFFORT & INSPECTION: Yes symmetric chest movement and Yes tachypneic AUSCULTATION: wheezes expiratory wheezes and throughout and diminished lung sounds diffuse OTHER: -Conversational dyspnea, on BiPAP (FiO2-35%), desaturates quickly with minimal exertion. Overall, air entry has improved Cardio: COMMON NORMALS: regular rate, regular rhythm, S1 normal heart sound present, S2 normal heart sound present and No murmurs present (Cardio) RATE: regular rate RHYTHM: regular rhythm HEART SOUNDS: S1 normal heart sound present and S2 normal heart sound present GI: COMMON NORMALS: Normal to inspection, nondistended, normoactive bowel sounds present, Soft to palpation and non-tender INSPECTION: Yes central obesity PALPATION: Yes Soft to palpation : BLADDER/KIDNEY EXAM: Yes catheter in place Catheter type (Male): urethral Extremity: COMMON NORMALS: normal to inspection, full ROM and no clubbing, cyanosis or edema; negative for no pedal edema Neuro: COMMON NORMALS: patient oriented x3, moves all extremities, no focal motor deficits, no sensory deficits noted and gait normal SENSORIUM/ORIENTATION: Yes alert Psych: COMMON NORMALS: mental status grossly normal, cooperative, normal affect and speech normal SPEECH: Yes normal speech MOOD & AFFECT: Yes irritable OTHER: -easily irritable, quickly angered Skin: COMMON NORMALS: no rashes or lesions noted, no jaundice, no petechiae and no mottling GENERAL SKIN EXAM: no rashes or lesions noted Data : 06/26/20 05:23 06/26/20 05:23 Micro: Microbiology 06/25/20 04:00 Gram Stain - Final Sputum - Expectorated Sputum Sputum Culture - Preliminary Gram Negative Rods 06/24/20 18:43 Blood Culture - Preliminary Blood NEGATIVE TO DATE 06/24/20 18:40 Blood Culture - Preliminary Blood NEGATIVE TO DATE A&P Assessment and plan (1) Acute exacerbation of chronic obstructive airways disease: -Acute exacerbation of COPD, not oxygen dependent at baseline -Currently requiring supplemental oxygen support vs. BiPAP with questionable compliance -Has known history of chronic hypercapnic respiratory failure -Noted hypercapnia and hypoxia on serial ABGs -High risk for decompensation and low threshold for intubation -home oxygen evaluation prior to discharge if appropriate -Chest x-ray shows hyperinflation, otherwise no indication of acute infection -Close monitoring of respiratory status -Neb treatments, antitussives PRN -rapid COVID-19 testing negative -continue IV steroids, empiric antibiotics -blood cx prelim negative -sputum cx prelim GNRs, gram stain shows few GPC in clusters Status: Acute (2) Chronic hypercapnic respiratory failure: -follows up with pulmonology Dr. 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 smoked 1 PPD -nicotine replacement therapy Status: Chronic (6) Ischemic cardiomyopathy: -hx of ICD placement, stenting of LAD and RCA -Echo (09/2018): EF=40%, G3DD, mild MR -continue ASA, statin, BB, Brilinta -follows up with cardiology Status: Chronic (7) Hyperlipidemia: -continue statin Status: Chronic Qualifiers: Hyperlipidemia type: unspecified Qualified Code(s): E78.5 - Hyperlipid emia, unspecified (8) Insulin dependent diabetes mellitus: -A1c-7.6 -Accucheks, ISS, scheduled insulin, hypoglycemia precautions -cardiac consistent carb diet Status: Chronic (9) 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 2 diabetes mellitus: -baseline Cr is around 1 Status: Chronic Additional A&P Information -Chronic combined systolic and diastolic CHF; mild acute exacerbation, Echo as noted above, switch to IV diuretics, fluid restriction -Morbid obesity: BMI-45 kg/m2 -GI ppx with famotidine -DVT ppx with lovenox -Dispo: home -Code status: FULL code Attestations Medical Necessity Statement*: Patient requires hospitalization for continued treatment of acute COPD exacerbation, acute CHF exacerbation requiring IV diuresis, acute urinary retention requiring Burciaga catheter placement. Time Spent in Patient Care: 16 - 35 minutes (>than 50% of time spent in counselling and/or direct pt care on unit) . 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
[2020-06-26 14:17] LABS: Glucose Point of Care 129 mg/dL (70-110)
[2020-06-26] MEDS: FUROsemide 10 mg/mL SDV 2mL 20 MG IVP (14:33)
[2020-06-26] MEDS: benzonatate 100 mg Capsule 200 MG PO ×2 (14:49→22:33)
[2020-06-26] MEDS: TRAMadol 50 mg Tablet PO ×2 (14:50→22:33)
[2020-06-26 17:11] LABS: Glucose Point of Care 213 mg/dL (70-110)
[2020-06-26 20:27] LABS: Glucose Point of Care 351 mg/dL (70-110)
[2020-06-26] MEDS: insulin glargine 100 units/1 mL 65 UNIT SUBCUT (22:22)
[2020-06-26] MEDS: atorvastatin 40 mg Tablet 80 MG PO (22:24)
[2020-06-26] MEDS: enoxaparin 40 mg/0.4 mL Syringe SUBCUT (22:25)
[2020-06-26] MEDS: methocarbamol 500 mg Tablet PO (22:25)
[2020-06-27] VITALS (19 sets, daily range): BP systolic 112–131; BP diastolic 73–88; PULSE 73–110; RESP 12–24; TEMP 36.3–37.2; O2SAT 91–97
[2020-06-27] MEDS: FUROsemide 10 mg/mL SDV 2mL 20 MG IVP ×3 (04:03→14:44)
[2020-06-27 05:51] LABS: Basophils % 0.2 %; Hemoglobin 16.4 g/dL (11.7-16.6); Lymphocytes # 0.3 10^3/uL (0.8-4.8); Lymphocytes % 1.9 %; Mean Corpuscular HGB Conc 30.9 g/dL (30.0-36.0); Mean Corpuscular Hemoglobin 28.5 pg (28.0-34.0); Mean Corpuscular Volume 92.2 fL (80-94); Mean Platelet Volume 11.2 fL (7.4-10.4); Monocytes # 0.6 10^3/uL (0.2-0.9); Monocytes % 3.5 %; Neutrophils # 17.05 10^3/uL (1.8-7.7); Neutrophils % 93.6 %; Nucleated Red Blood Cells % 0 %; Platelet Count 264 10^3/cmm (130-400); Red Blood Count 5.75 10^6/uL (4.1-5.3); Red Cell Distribution Width 16.9 % (12.1-15.1); White Blood Count 18.2 10^3/uL (4.0-10.0)
[2020-06-27 06:38] LABS: Blood Urea Nitrogen 39 mg/dL (6-20); Calcium 9.2 mg/dL (8.5-10.5); Carbon Dioxide 28 mmol/L (22-29); Chloride 99 mmol/L (98-107); Glomerular Filtration Rate 69.2 mL/min (90-130); Glucose 183 mg/dL (65-115); Osmolality Calculated 298 mOsm/kg (285-295); Sodium 137 mmol/L (136-145)
[2020-06-27 06:39] LABS: Anion Gap 14.8 (5-19); Potassium 4.8 mmol/L (3.5-5.1)
[2020-06-27 06:46] LABS: Glucose Point of Care 209 mg/dL (70-110)
[2020-06-27] MEDS: ipratropium-albuterol 3 mL Neb INHALATION ×5 (07:56→23:38)
[2020-06-27] MEDS: famotidine 20 mg Tablet PO ×2 (08:52→17:29)
[2020-06-27] MEDS: gabapentin 300 mg Capsule 600 MG PO ×3 (08:52→20:07)
[2020-06-27] MEDS: aspirin 81 mg EC Tablet PO (08:52)
[2020-06-27] MEDS: ticagrelor 90 mg Tablet PO ×2 (08:52→17:29)
[2020-06-27] MEDS: cetirizine 10 mg Tablet PO (08:52)
[2020-06-27] MEDS: nicotine 21 mg Patch 1 PATCH TRANSDERMA (08:53)
[2020-06-27] MEDS: azithromycin 250 mg Tablet 500 MG PO (09:10)
[2020-06-27] MEDS: TRAMadol 50 mg Tablet PO ×3 (09:10→21:02)
[2020-06-27] MEDS: metoprolol tartrate 50 mg Tablet 25 MG PO (09:11)
--- NOTE | 2020-06-27 09:14 | PC.RESP ---
SMOKING CESSATION AND PULMONARY REHAB INFORMATION SENT TO PATIENT.
--- NOTE | 2020-06-27 10:43 | PC.NURSE ---
In to remove gillis per doctors orders, 550mL emptied from bag, patient refused to have gillis removed at this time states, I want to see the physician first. It is kind of nice not having to get up out of bed when you need to pee all the time. Misty charge nurse notified. Will allow physician to see patient prior to attempting gillis removal.
--- NOTE | 2020-06-27 11:17 | PC.NURSE ---
Patient requesting IV to be removed and a new one to be placed, this nurse in to assess potential iv sites, prior to placing IV patient then stated, Never-mind I will keep my IV in place I do not want a new one right now.
--- NOTE | 2020-06-27 11:34 | PC.NURSE ---
Patient requesting lemonade, called dietary and ordered a lemonade, this nurse monitoring Intake for fluid restriction, dietary reports patient had already called and ordered and threatened her over bringing one lemonade instead of two and then hung up phone on dietary. Lemonade coming from dietary for lunch.
[2020-06-27 11:39] LABS: Glucose Point of Care 261 mg/dL (70-110)
--- NOTE | 2020-06-27 12:41 | PC.NURSE ---
Dr. Knight notified this nurse patient did not tolerate decrease in oxygen and physician placed back up to 10L via oxy mask. this nurse to room oxygen saturation 91%.
[2020-06-27] MEDS: acetaminophen 325 mg Tablet 650 MG PO ×2 (13:36→19:53)
--- NOTE | 2020-06-27 14:30 | P.PN_ITS ---
Subjective Subjective: Interval history: He feels his mouth has been getting dry, and so has been trying to drink water to prevent dehydration. Discussed with him a few times during the visit the goals of trying to treat fluid overload. He says he got very worried as he previously had heatstroke and at that time was dehydrated and had electrolytes out of balance, although he also admits that currently it is not hot in the room. He per discussion with nursing staff has been requesting for 2 cups of lemonade at the same time despite being on fluid restriction. We discussed regarding fluid restriction and its purpose. It does appear that he gets dry mouth, and some of this may be from oxygen as discussed with him, and will request for humidifier to be added to his oxygen. He otherwise overall states that he is feeling better. His saturation has been improving. He is not normally oxygen at home. He does state that he gets chronic wheezing, and so is not overly concerned about that. Currently today he was also somewhat irritable requesting several times that Burciaga catheter be removed, however, subsequently as diuretic is being continued he requested to keep the Burciaga in place so as not to have to get up multiple times to urinate. He feels that he had gotten worse due to not receiving Lasix on admission. Vitals/I&O/Wt Last Vital Signs Temp 98.9 F 06/27/20 12:00 Pulse 99 06/27/20 12:00 Resp 20 H 06/27/20 12:00 BP 131/88 06/27/20 12:00 Pulse Ox 93 06/27/20 12:00 06/26/20 06/27/20 06/27/20 22:59 06:59 14:59 Intake Total 240 / 840 100 / 100 Output Total 700 / 1100 550 / 550 Balance 240 / 440 -700 / -260 -450 / -450 Weight last 48 hrs Weight 123.377 kg Weight 120.973 kg Weight 122.152 kg Physical Exam Const: COMMON NORMALS: no acute distress and patient oriented x3 NUTRITIONAL APPEARANCE: obese HENMT: COMMON NORMALS: oropharynx normal Neck/C-Spine: COMMON NORMALS: no JVD Resp: COMMON NORMALS: normal respiratory effort AUSCULTATION: wheezes Cardio: COMMON NORMALS: no JVD, regular rhythm, S1 normal heart sound present, S2 normal heart sound present and No murmurs present (Cardio) RHYTHM: regular rhythm HEART SOUNDS: S1 normal heart sound present and S2 normal heart sound present GI: COMMON NORMALS: Normal to inspection, nondistended, normoactive bowel sounds present, Soft to palpation and non-tender PALPATION: Yes Soft to palpation Extremity: COMMON NORMALS: no joint enlargement GENERAL: Yes edema (2+ at ankles) Neuro: COMMON NORMALS: patient oriented x3 and moves all extremities Skin: COMMON NORMALS: no rashes or lesions noted GENERAL SKIN EXAM: no rashes or lesions noted Urinary Catheter Management^: Burciaga: Cath Placed During This Visit: yes Reason for Continuing Indwelling Catheter: Other Urinary Catheter Date of Insertion: 06/26/20 Urinary Catheter Time of Insertion: 14:00 Data : 06/27/20 05:08 06/27/20 05:08 Micro: Microbiology 06/25/20 04:00 Gram Stain - Final Sputum - Expectorated Sputum Sputum Culture - Final Serratia marcescens A&P Assessment and plan (1) Acute exacerbation of chronic obstructive airways disease: Subjectively he has been improving. Objectively he appears to require less oxygen. He still wheezing bilaterally, although does reported this is a chronic problem. I do see he is growing a resistant organism and sputum culture with Serratia which is resistant to Levaquin and azithromycin which she had received. Discussed with him. We will go ahead and switch antibiotics at this time to Primaxin. We will go ahead and switch steroids to oral with prednisone. Continue to wean down oxygen as tolerating. Discussed with him if we are unable to wean completely may need to order oxygen for him to take home. He says he has a nebulizer at home. Will add budesonide. Continue Lasix. Will give additional 20 mg Lasix. Will change also his dose to 40 mg IV twice daily. Discussed with him with regards to fluid restriction. Continue to encourage. Continue to encourage CPAP adherence. Continue follow-up with pulmonology. -Neb treatments, antitussives PRN -rapid COVID-19 testing negative -continue IV steroids, empiric antibiotics -blood cx prelim negative -sputum cx prelim GNRs, gram stain shows few GPC in clusters Status: Acute (2) Chronic hypercapnic respiratory failure: -follows up with pulmonology Dr. 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 He states that he has been trying to quit. He has been on Chantix previously. He says that he stopped smoking 2 days prior to admission. He did request subsequently for nicotine patch. Discussed with him we also have gum available, but he declines this at this time. Continue to encourage cessation. Status: Chronic (6) Ischemic cardiomyopathy: -hx of ICD placement, stenting of LAD and RCA -Echo (09/2018): EF=40%, G3DD, mild MR -continue ASA, statin, BB, Brilinta -follows up with cardiology Status: Chronic (7) Hyperlipidemia: -continue statin Status: Chronic Qualifiers: Hyperlipidemia type: unspecified Qualified Code(s): E78.5 - Hyperlipidemia, unspecified (8) Insulin dependent diabetes mellitus: -A1c-7.6 -Accucheks, ISS, scheduled insulin, hypoglycemia precautions -cardiac consistent carb diet Status: Chronic (9) 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 2 diabetes mellitus: -baseline Cr is around 1 Status: Chronic Additional A&P Information -Acute on chronic combined systolic and diastolic CHF; continue fluid restriction. Increase Lasix dose to 40 mg twice a day. Monitor I&O. Discussed with him. -Morbid obesity: BMI-45 kg/m2 -GI ppx with famotidine -DVT ppx with lovenox -Dispo: home -Code status: FULL code Attestations Medical Necessity Statement*: Continue admission for management of acute respite failure with hypoxia, COPD consideration, acute CHF exacerbation. Coding Level of Care Code Acute Ad Setter for [facility] Fwd Diagnoses Acute exacerbation of chronic obstructive airways disease J44.1 Chronic hypercapnic respiratory failure J96.12 Hypertension I10 Hypertension type: essential hypertension Obstructive sleep apnea G47.33 Tobacco abuse Z72.0 Ischemic cardiomyopathy I25.5 Hyperlipidemia E78.5 Hyperlipidemia type: unspecified Insulin dependent diabetes mellitus 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 2 diabetes mellitus E11.22; N18.2
[2020-06-27 15:13] LABS: Glucose Point of Care 121 mg/dL (70-110)
[2020-06-27] MEDS: budesonide 0.5 mg/2 mL Neb 0.25 MG INHALATION ×2 (15:17→19:55)
[2020-06-27 17:11] LABS: Glucose Point of Care 125 mg/dL (70-110)
--- NOTE | 2020-06-27 17:15 | PC.SOCIAL ---
Went to discuss patients concerns. Patient was concerned that they placed gillis. We discussed provider has given order to remove this however patient refused. He indicates will leave it if giving medicine at night to make him urinate. We discussed medications concerns. This nurse explained the provider in the hospital may not continue the same medications at same dose on every home med while here. He can discuss those concerns related to meds with provider. Discussed he had an appt for PFT tomorrow and was told cant be done while here. Explained to patient PFT needs to be done while stable in outpatient setting and they need to get a baseline. Being hospitalized he is in an acute setting and they are not done in this setting generally. He doesn't understand why this is the case. Tried to answer all questions. While in patient room nutrition came in to deliver lunch tray and nurse was also in room Trini. Patient kept requesting additional lemonade all tried to explain he is on a 1500 ml fluid restriction and this cant be done unless approved by provider. Patient continues to get angry and requests. Patient then angrily asked if all could exit room and closes door behind. Patient very upset. Nurse Trini explained to this nurse that patient wont let her take his home meds that are at bedside of which includes Tramadol. Called Security to go in room to address this with Trini and this nurse. Went in room and explained to patient we are doing our best to care for him.Provider agreed for him to have another lemonade and this will be provided. Explained getting angry at staff does not help the situation and they have to follow physician orders. We then discussed medications will need to be stored in our Pyxis or he will need to have someone come get them. He eventually agreed to have them stored. This nurse and Patient care nurse Trini went through the medications and counted the tramadol and muscle relaxer. Listed these along with 3/4 full bottle of Tylenol, eye drops, and two inhalers on medication sheet. Patient signed the form and was placed in chart. med sticker placed on pt board and on bag of meds. Trini placed meds in pyxis. NO other concerns voiced
[2020-06-27] MEDS: metoprolol tartrate 25 mg Tablet PO (17:29)
[2020-06-27] MEDS: enoxaparin 40 mg/0.4 mL Syringe SUBCUT (19:53)
--- NOTE | 2020-06-27 19:58 | PC.NURSE ---
Was requested by case management to speak with patient regarding concerns of patient care. Spoke with patient regarding him not wanting gillis catheter. States we do not have his medication right and he would not need the catheter if his meds were right. Patient states that his food was cold and has been wrong 7/7 times. PHysician, dietary and maintenance worker house trailer notified of patient concerns.
[2020-06-27] MEDS: atorvastatin 40 mg Tablet 80 MG PO (20:07)
[2020-06-27] MEDS: methocarbamol 500 mg Tablet PO (21:02)
[2020-06-27 21:20] LABS: Glucose Point of Care 246 mg/dL (70-110)
[2020-06-27] MEDS: insulin glargine 100 units/1 mL 65 UNIT SUBCUT (21:20)
[2020-06-28] VITALS (19 sets, daily range): BP systolic 105–135; BP diastolic 71–93; PULSE 15–100; RESP 15–21; TEMP 36.3–36.6; O2SAT 91–99
[2020-06-28] MEDS: FUROsemide 10 mg/mL SDV 2mL 40 MG IVP (02:41)
[2020-06-28] MEDS: TRAMadol 50 mg Tablet PO ×3 (03:18→20:07)
[2020-06-28] MEDS: ipratropium-albuterol 3 mL Neb INHALATION ×5 (03:37→20:17)
[2020-06-28 06:40] LABS: Glucose Point of Care 336 mg/dL (70-110)
[2020-06-28] MEDS: budesonide 0.5 mg/2 mL Neb 0.25 MG INHALATION ×2 (07:53→20:17)
[2020-06-28] MEDS: aspirin 81 mg EC Tablet PO (09:49)
[2020-06-28] MEDS: ticagrelor 90 mg Tablet PO ×2 (09:49→17:14)
[2020-06-28] MEDS: metoprolol tartrate 25 mg Tablet PO ×2 (09:49→17:04)
[2020-06-28] MEDS: gabapentin 300 mg Capsule 600 MG PO ×3 (09:50→20:07)
[2020-06-28] MEDS: cetirizine 10 mg Tablet PO (09:50)
[2020-06-28] MEDS: famotidine 20 mg Tablet PO ×2 (09:50→17:03)
[2020-06-28 09:51] LABS: Basophils % 0.2 %; Eosinophils % 0.2 %; Hematocrit 51.6 % (42.0-52.0); Hemoglobin 15.8 g/dL (11.7-16.6); Lymphocytes # 0.7 10^3/uL (0.8-4.8); Lymphocytes % 5.1 %; Mean Corpuscular HGB Conc 30.6 g/dL (30.0-36.0); Mean Corpuscular Hemoglobin 28.5 pg (28.0-34.0); Mean Corpuscular Volume 93.1 fL (80-94); Mean Platelet Volume 11.2 fL (7.4-10.4); Monocytes % 7.6 %; Neutrophils # 11.19 10^3/uL (1.8-7.7); Neutrophils % 86.3 %; Nucleated Red Blood Cells % 0 %; Platelet Count 222 10^3/cmm (130-400); Red Blood Count 5.54 10^6/uL (4.1-5.3); Red Cell Distribution Width 16.5 % (12.1-15.1)
[2020-06-28 10:02] LABS: Anion Gap 11.4 (5-19); Blood Urea Nitrogen 37 mg/dL (6-20); Calcium 8.9 mg/dL (8.5-10.5); Carbon Dioxide 35 mmol/L (22-29); Chloride 94 mmol/L (98-107); Glomerular Filtration Rate 62.6 mL/min (90-130); Glucose 357 mg/dL (65-115); Osmolality Calculated 305 mOsm/kg (285-295); Potassium 4.4 mmol/L (3.5-5.1); Sodium 136 mmol/L (136-145)
[2020-06-28 11:38] LABS: Glucose Point of Care 328 mg/dL (70-110)
[2020-06-28 15:42] LABS: Glucose Point of Care 56 mg/dL (70-110)
[2020-06-28 16:27] LABS: Glucose Point of Care 81 mg/dL (70-110)
[2020-06-28] MEDS: FUROsemide 10 mg/mL SDV 4mL 40 MG IVP (17:02)
[2020-06-28] MEDS: nicotine 21 mg Patch 1 PATCH TRANSDERMA (17:02)
[2020-06-28] MEDS: polyethylene glycol 3350 Pkt 17 gm PO (17:14)
[2020-06-28] MEDS: enoxaparin 40 mg/0.4 mL Syringe SUBCUT (20:07)
[2020-06-28] MEDS: acetaminophen 325 mg Tablet 650 MG PO (20:07)
[2020-06-28] MEDS: predniSONE 20 mg Tablet 60 MG PO (20:07)
[2020-06-28] MEDS: methocarbamol 500 mg Tablet PO (20:07)
--- NOTE | 2020-06-28 20:38 | PM.PN ---
Subjective Subjective: Interval history: Today he is actually feeling somewhat better. Having less wheezing. He is having constipation and requesting something to help with a bowel movement. Noted today having some mild hematuria, but requests remove Burciaga catheter. Vitals/I&O/Wt Last Vital Signs Temp 97.5 F L 06/28/20 19:36 Pulse 82 06/28/20 20:19 Resp 18 06/28/20 20:19 BP 113/75 06/28/20 19:36 Pulse Ox 95 06/28/20 20:19 06/28/20 06/28/20 06/28/20 06:59 14:59 22:59 Intake Total 100 / 1360 1300 / 1300 820 / 2120 Output Total 1500 / 3600 680 / 680 650 / 1330 Balance -1400 / -2240 620 / 620 170 / 790 Weight last 48 hrs Weight 124.511 kg Weight 123.377 kg Weight 120.973 kg Physical Exam Const: COMMON NORMALS: no acute distress and patient oriented x3 NUTRITIONAL APPEARANCE: obese HENMT: COMMON NORMALS: oropharynx normal Neck/C-Spine: COMMON NORMALS: no JVD Resp: COMMON NORMALS: normal respiratory effort AUSCULTATION: wheezes Cardio: COMMON NORMALS: no JVD, regular rhythm, S1 normal heart sound present, S2 normal heart sound present and No murmurs present (Cardio) RHYTHM: regular rhythm HEART SOUNDS: S1 normal heart sound present and S2 normal heart sound present GI: COMMON NORMALS: Normal to inspection, nondistended, normoactive bowel sounds present, Soft to palpation and non-tender PALPATION: Yes Soft to palpation Extremity: COMMON NORMALS: no joint enlargement GENERAL: Yes edema (2+ at ankles) Neuro: COMMON NORMALS: patient oriented x3 and moves all extremities Skin: COMMON NORMALS: no rashes or lesions noted GENERAL SKIN EXAM: no rashes or lesions noted Urinary Catheter Management^: Burciaga: Cath Placed During This Visit: yes Reason for Continuing Indwelling Catheter: Acute Urinary Retention or Obstruction Urinary Catheter Date of Insertion: 06/26/20 Urinary Catheter Time of Insertion: 14:00 Data : 06/28/20 09:32 06/28/20 09:32 A&P Assessment and plan (1) Acute exacerbation of chronic obstructive airways disease: Today he is doing better, and actually wheezing well. We did broaden antibiotics yesterday with Primaxin given resistant organism with Serratia growing in sputum. Continue prednisone. Continue breathing treatments. Discussed with him for now continue IV diuretics. He does want to remove the Burciaga. If continues to improve, may be looking at potential discharge within 1-2 days, possibly as early as tomorrow. The only barrier may be the resistant organism in his sputum which appears to be responding to broad-spectrum antibiotics. Unfortunately he reports severe allergy to sulfa antibiotics, and so the only oral option is unavailable. Discussed with him we will continue IV antibiotics while he is here with Primaxin. On discharge may need to arrange outpatient infusions. He [place] that [place] the [place] and so could potentially get the infusions there. He would require 4 days additional therapy after tomorrow. Potentially these could be with once daily dosing with ertapenem. Will discuss with case management whether this could be done at outpatient infusion center. In terms of oxygen appears to be only intermittently using it at 2 L. Improving. Not yet entirely weaned down to room air. fluid restriction. Continue to encourage CPAP adherence. Continue follow-up with pulmonology. -Neb treatments, antitussives PRN -rapid COVID-19 testing negative -continue IV steroids, empiric antibiotics -blood cx prelim negative -sputum cx prelim GNRs, gram stain shows few GPC in clusters Status: Acute (2) Chronic hypercapnic respiratory failure: -follows up with pulmonology Dr. 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 Discussed with him we also have gum available, but he declines this at this time. Continue to encourage cessation. Status: Chronic (6) Ischemic cardiomyopathy: -hx of ICD placement, stenting of LAD and RCA -Echo (09/2018): EF=40%, G3DD, mild MR -continue ASA, statin, BB, Brilinta -follows up with cardiology Status: Chronic (7) Hyperlipidemia: -continue statin Status: Chronic (8) Insulin dependent diabetes mellitus: -A1c-7.6 -Accucheks, ISS, scheduled insulin, hypoglycemia precautions -cardiac consistent carb diet Status: Chronic (9) 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 2 diabetes mellitus: -baseline Cr is around 1 Status: Chronic (10) Hematuria: Mild. He wants to DC Burciaga. Will monitor for any worsening of hematuria. He is not sure if maybe accidentally pulled on Burciaga catheter in his sleep. Will change from Lovenox to subcutaneous heparin for VT prophylaxis. Status: Acute Additional A&P Information -Acute on chronic combined systolic and diastolic CHF; continue fluid restriction. He is agreeable for now to continue Lasix IV. Discussed with pharmacy will change dosing to 7 AM and 3 PM. He wants to remove Burciaga catheter. Monitor I&O. Discussed with him. -Morbid obesity: BMI-45 kg/m2 -GI ppx with famotidine -DVT ppx with VIRA -Dispo: home -Code status: FULL code Attestations Medical Necessity Statement*: Continue admission for assessment management of respiratory failure, COPD exacerbation, CHF exacerbation, infection with multidrug-resistant organism, disposition planning. 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
[2020-06-28 21:01] LABS: Glucose Point of Care 118 mg/dL (70-110)
[2020-06-28] MEDS: atorvastatin 40 mg Tablet 80 MG PO (22:15)
[2020-06-28] MEDS: insulin glargine 100 units/1 mL 65 UNIT SUBCUT (22:16)
[2020-06-29] VITALS (17 sets, daily range): BP systolic 106–119; BP diastolic 75–89; PULSE 70–92; RESP 13–20; TEMP 36.3–36.7; O2SAT 88–97
[2020-06-29] MEDS: ipratropium-albuterol 3 mL Neb INHALATION ×5 (00:27→16:23)
[2020-06-29] MEDS: acetaminophen 325 mg Tablet 650 MG PO ×3 (02:23→14:52)
[2020-06-29] MEDS: TRAMadol 50 mg Tablet PO ×3 (02:23→14:52)
[2020-06-29 05:27] LABS: Basophils % 0.1 %; Eosinophils % 0.2 %; Hematocrit 52.4 % (42.0-52.0); Lymphocytes # 0.4 10^3/uL (0.8-4.8); Lymphocytes % 4.3 %; Mean Corpuscular HGB Conc 30.5 g/dL (30.0-36.0); Mean Corpuscular Hemoglobin 28.6 pg (28.0-34.0); Mean Corpuscular Volume 93.6 fL (80-94); Mean Platelet Volume 11.1 fL (7.4-10.4); Monocytes # 0.5 10^3/uL (0.2-0.9); Monocytes % 5.1 %; Neutrophils # 8.64 10^3/uL (1.8-7.7); Neutrophils % 89.6 %; Nucleated Red Blood Cells % 0 %; Platelet Count 187 10^3/cmm (130-400); Red Cell Distribution Width 16.5 % (12.1-15.1); White Blood Count 9.6 10^3/uL (4.0-10.0)
[2020-06-29 06:10] LABS: Anion Gap 12.9 (5-19); Blood Urea Nitrogen 39 mg/dL (6-20); Calcium 8.6 mg/dL (8.5-10.5); Carbon Dioxide 32 mmol/L (22-29); Chloride 98 mmol/L (98-107); Glomerular Filtration Rate 77.3 mL/min (90-130); Glucose 233 mg/dL (65-115); Osmolality Calculated 303 mOsm/kg (285-295); Potassium 4.9 mmol/L (3.5-5.1); Sodium 138 mmol/L (136-145)
[2020-06-29 06:19] LABS: Glucose Point of Care 237 mg/dL (70-110)
[2020-06-29] MEDS: FUROsemide 10 mg/mL SDV 4mL 40 MG IVP ×2 (06:32→15:03)
[2020-06-29] MEDS: budesonide 0.5 mg/2 mL Neb 0.25 MG INHALATION (07:52)
[2020-06-29] MEDS: cetirizine 10 mg Tablet PO (08:36)
[2020-06-29] MEDS: metoprolol tartrate 25 mg Tablet PO (08:36)
[2020-06-29] MEDS: predniSONE 20 mg Tablet 60 MG PO (08:36)
[2020-06-29] MEDS: ticagrelor 90 mg Tablet PO (08:36)
[2020-06-29] MEDS: famotidine 20 mg Tablet PO (08:36)
[2020-06-29] MEDS: aspirin 81 mg EC Tablet PO (08:36)
[2020-06-29] MEDS: gabapentin 300 mg Capsule 600 MG PO ×2 (08:36→14:53)
[2020-06-29] MEDS: nicotine 21 mg Patch 1 PATCH TRANSDERMA (08:52)
[2020-06-29 09:03] LABS: Glucose Point of Care 305 mg/dL (70-110)
[2020-06-29] MEDS: polyethylene glycol 3350 Pkt 17 gm PO (09:22)
--- NOTE | 2020-06-29 10:19 | PC.NURSE ---
patient stated that he had to pee, needed the door closed(i did). i asked him if he wanted his urinal? He started getting loud and cursing at me. I gotta fucking pee! I had to remove his bipap.He jumped up and went into the bathroom with no [address] i said this is not exceptable. I will not be cursed at and then left the room.
[2020-06-29 12:08] LABS: Glucose Point of Care 392 mg/dL (70-110)
[2020-06-29] MEDS: benzonatate 100 mg Capsule 200 MG PO (14:53)
[2020-06-29] MEDS: magnesium citrate Btl 296 mL PO (15:03)
--- NOTE | 2020-06-29 15:35 | PM.DCS ---
Discharge Providers Date of Admission: 06/24/20 16:43 Date of Discharge: June 29, 2020 Attending Provider at Admission: Maribel Selby MD Attending Provider at Discharge: Jorge Yañez Primary Care Provider: Karla Ryan MD Diagnoses at Discharge Discharge Diagnosis (1) Acute exacerbation of chronic obstructive airways disease: Status: Acute (2) Chronic hypercapnic respiratory failure: Status: Chronic (3) Hypertension: Status: Chronic (4) Obstructive sleep apnea: Status: Chronic Permanent problem details: -non compliant with CPAP (5) Tobacco abuse: Status: Chronic (6) Ischemic cardiomyopathy: Status: Chronic (7) Hyperlipidemia: Status: Chronic (8) Insulin dependent diabetes mellitus: Status: Chronic (9) 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 2 diabetes mellitus: Status: Chronic (10) Hematuria: Status: Acute Reason for Visit Reason for Visit: SOB Hospital Course Hospital Course 55-year-old gentleman, has CPAP at home but has not been using it, with COPD, obstructive sleep apnea HTN, HLD, DM 2, history of ischemic cardiomyopathy, status post ICD, history of CAD, tobacco abuse, but states has stopped smoking just prior to current admission, previously on Chantix, not normally on oxygen was admitted due to shortness of breath, diffuse wheezing, found to be in COPD distribution, as well as acute CHF exacerbation noted during the hospitalization requiring IV Lasix. COPD exacerbation was treated with BiPAP and oxygen support, IV steroids, empiric antibiotics, initially azithromycin, subsequently switched over to Primaxin due to multidrug-resistant Serratia growing in sputum. Rapid COVID-19 testing was negative. Shortly after his wheezing significantly improved, as well as subjective shortness of breath, as well as oxygenation. He has been weaning down on oxygen, and is only intermittently on low rate nasal cannula. We have discussed with him that on discharge he may require some oxygen, although he has been very reluctant to agree to take oxygen at home. Discussed with him that hypoxia may be transient, but if he does not have oxygen may be life-threatening leading to illness or . Home oxygen assessment is ordered for him. Given multidrug-resistant pulmonary infection, he will complete antibiotic regimen with ertapenem infusions after discharge to complete the course as the only oral antibiotic this organism is sensitive to his Bactrim, and he reports history of severe allergy to sulfa. He is agreeable with outpatient infusions to complete 4 more days of therapy. He will also complete prednisone taper. He is encouraged to keep up his smoking cessation. His volume status is improved, edema appears better. He is continued on home Lasix dose, and is encouraged to continue fluid restriction of 1500 mL/day. Please reassess his COPD, CHF and volume status, and support maintenance of smoking abstinence. He is encouraged to wear his CPAP with sleep. He is referred for follow-up with pulmonology. On presentation noted to have microscopic hematuria, and during the hospital stay had minimal pink discoloration to urine with Burciaga catheter, he was not sure if maybe had pulled on the catheter nicely. Burciaga catheter has been discontinued and he has had no issues urinating. Please reassess hematuria, and if microscopic hematuria still present, in the setting of smoking history please refer for additional assessment to exclude other causes including urinary tract malignancy. Please note, he qualifies for 2L of oxygen with exertion, but is refusing arrangements for oxygen. Please reassess and discuss again. Physical Exam Const: COMMON NORMALS: no acute distress, patient oriented x3 and alert GENERAL APPEARANCE: cooperative and comfortable NUTRITIONAL APPEARANCE: obese ORIENTATION/CONSCIOUSNESS: Yes awake HENMT: COMMON NORMALS: oropharynx normal Neck/C-Spine: COMMON NORMALS: no JVD Resp: COMMON NORMALS: normal respiratory effort and clear to auscultation bilaterally AUSCULTATION: clear to auscultation bilaterally and no wheezes Cardio: COMMON NORMALS: no JVD, regular rhythm, S1 normal heart sound present, S2 normal heart sound present and No murmurs present (Cardio) RHYTHM: regular rhythm HEART SOUNDS: S1 normal heart sound present and S2 normal heart sound present GI: COMMON NORMALS: Normal to inspection, nondistended, normoactive bowel sounds present, Soft to palpation and non-tender PALPATION: Yes Soft to palpation Extremity: COMMON NORMALS: no joint enlargement GENERAL: Yes edema (1+ at ankles) Neuro: COMMON NORMALS: patient oriented x3 and moves all extremities SENSORIUM/ORIENTATION: Yes alert Skin: COMMON NORMALS: no rashes or lesions noted GENERAL SKIN EXAM: no rashes or lesions noted Urinary Catheter Management^: Burciaga: Cath Placed During This Visit: yes Reason for Continuing Indwelling Catheter: Acute Urinary Retention or Obstruction Urinary Catheter Date of Insertion: 06/26/20 Urinary Catheter Time of Insertion: 14:00 Discharge Data Data Completed and Pending: Completed Studies During Hospitalization Category Date Time Status XR chest 1V trina ble [id number] Stat Exams 06/24/20 11:04 Completed Pending at discharge Category Date Time Status Basic Metabolic P ramesh AM LABS Lab 06/30/20 04:00 Ordered Blood Culture Sta t Lab 06/24/20 18:43 Results Complete Blood Co unt w/Auto AM LABS Lab 06/30/20 04:00 Ordered Labs from last 24 hours 06/29/20 06/29/20 06/29/20 11:23 08:33 06:00 WBC RBC Hgb Hct MCV MCH MCHC RDW Plt Count MPV Neut % (Auto) Lymph % (Auto) Dougherty % (Auto) Eos % (Auto) Baso % (Auto) Neut # (Auto) Lymph # (Auto) Dougherty # (Auto) Eos # (Auto) Baso # (Auto) Nucleated RBC % (a uto) Nucleated RBCs # Sodium Potassium Chloride Carbon Dioxide Anion Gap BUN Creatinine GFR Calculation Glucose POC Glucose 392 305 237 Calculated Osmolal ity Calcium 06/29/20 06/29/20 06/28/20 04:50 04:50 20:51 WBC 9.6 RBC 5.60 H Hgb 16.0 Hct 52.4 H MCV 93.6 MCH 28.6 MCHC 30.5 RDW 16.5 H Plt Count 187 MPV 11.1 H Neut % (Auto) 89.6 Lymph % (Auto) 4.3 Dougherty % (Auto) 5.1 Eos % (Auto) 0.2 Baso % (Auto) 0.1 Neut # (Auto) 8.64 H Lymph # (Auto) 0.4 L Dougherty # (Auto) 0.5 Eos # (Auto) 0.0 Baso # (Auto) 0.0 Nucleated RBC % (a uto) 0 Nucleated RBCs # 0.0 Sodium 138 Potassium 4.9 Chloride 98 Carbon Dioxide 32 H Anion Gap 12.9 BUN 39 H Creatinine 1.0 GFR Calculation 77.3 L Glucose 233 H POC Glucose 118 Calculated Osmolal ity 303 H Calcium 8.6 06/28/20 06/28/20 16:16 15:39 WBC RBC Hgb Hct MCV MCH MCHC RDW Plt Count MPV Neut % (Auto) Lymph % (Auto) Dougherty % (Auto) Eos % (Auto) Baso % (Auto) Neut # (Auto) Lymph # (Auto) Dougherty # (Auto) Eos # (Auto) Baso # (Auto) Nucleated RBC % (a uto) Nucleated RBCs # Sodium Potassium Chloride Carbon Dioxide Anion Gap BUN Creatinine GFR Calculation Glucose POC Glucose 81 56 Calculated Osmolal ity Calcium Vitals: Last Vital Signs Temp 97.7 F 06/29/20 11:25 Pulse 80 06/29/20 11:31 Resp 20 H 06/29/20 11:25 BP 119/82 06/29/20 11:25 Pulse Ox 94 06/29/20 13:11 Discharge Plan Discharge Patient Disposition: Home Condition: Stable Prescriptions: New prednisone 20 mg Tablet 60 mg PO DAILY Qty: 20 RF: 0 famotidine 20 mg Tablet 20 mg PO BID Qty: 60 RF: 0 polyethylene glycol 3350 17 gram Powder In Packet 17 g PO BID Qty: 60 RF: 0 nicotine 21 mg/24 hr Patch 24 Hour 1 patch transdermal DAILY Qty: 30 RF: 0 Dulcolax (bisacodyl) 5 mg tablet,delayed release (DR/EC) 5 mg PO BID PRN (Reason: constipation) Qty: 14 RF: 0 ertapenem 1 gram recon soln 1 g IM DAILY 4 Days Qty: 4 RF: 0 Continued albuterol sulfate 90 mcg/actuation HFA aerosol inhaler 1 inh INHALATION QID RF: 0 albuterol sulfate 5 mg/mL solution for nebulization 2.5 mg INHALATION Q4H PRN (Reason: Shortness Of Breath) RF: 0 aspirin 81 mg tablet,delayed release (DR/EC) 81 mg PO DAILY RF: 0 atorvastatin 80 mg tablet 80 mg PO DAILY RF: 0 Brilinta 90 mg tablet 90 mg PO BID RF: 0 furosemide 20 mg tablet 20 mg PO DAILY RF: 0 gabapentin 600 mg tablet 600 mg PO TID RF: 0 insulin glargine 100 unit/mL (3 mL) insulin pen 65 unit SUBCUT DAILY RF: 0 methocarbamol 500 mg tablet 500 mg PO BEDTIME RF: 0 nitroglycerin 0.4 mg tablet, sublingual 0.4 mg SUBLINGUAL Q5M PRN (Reason: Chest Pain) RF: 0 tramadol 50 mg tablet 50 mg PO Q6H PRN (Reason: Pain) RF: 0 metformin 500 mg tablet 500 mg PO BID RF: 0 Spiriva Respimat 2.5 mcg/actuation mist 2 puff INHALATION DAILY RF: 0 budesonide-formoterol [Symbicort] 160-4.5 mcg/actuation HFA aerosol inhaler 2 puff INHALATION BID RF: 0 ipratropium-albuterol 0.5 mg-3 mg(2.5 mg base)/3 mL Solution For Nebulization 3 ml INHALATION QID PRN (Reason: Shortness Of Breath) RF: 0 cetirizine 10 mg Tablet 10 mg PO DAILY RF: 0 acetaminophen 500 mg Tablet 1,000 mg PO TID PRN (Reason: Pain) RF: 0 benzonatate 100 mg Capsule 200 mg PO TID PRN (Reason: Cough) RF: 0 Novolog Flexpen U-100 Insulin 100 unit/mL (3 mL) Insulin Pen 16 unit SUBCUT TID RF: 0 metoprolol tartrate 25 mg Tablet 25 mg PO BID RF: 0 Jardiance 25 mg Tablet 25 mg PO DAILY RF: 0 Ozempic 1 mg/dose (2 mg/1.5 mL) Pen Injector 1 mg SUBCUT Q7D RF: 0 Discontinued prednisone 10 mg tablets,dose pack See Rx Instructions PO PER PKG DIR Qty: 21 RF: 0 Discharge Orders: Discharge Order (Routine); Ordered 06/29/20 Ordered By: Jorge Yañez Referrals: [facility] [place] [facility] [Other] - 06/30/20 11:30 am (You will need to come in daily for the next 4 days to receive our dose of IV medication. This has been approved by the [place]. Please arrive at the main/surgical services entrance and check in there. They will show you where to go. If you have any questions, you may call the phone number listed above.) Karla Ryan MD [Primary Care Provider] - 4-7 days (COPD exacerbation, CHF exacerbation, microscopic hematuria, chronic conditions) Jasmina Hernandez MD [Physician] - 1 month (COPD exacerbation, MDR Serratia in sputum) Discharge Diet: Cardiac and Diabetic Discharge Activity: Increase activity as tolerated Patient Instructions: Famotidine (By mouth), Prednisone (By mouth), Laxative, Stimulant (By mouth), Nicotine (Absorbed through the skin), Polyethylene Glycol 3350 (By mouth), How to Stop Smoking (GEN), Cigarette Smoking and Your Health (GEN) Activity Restrictions/Additional Instructions: Please note you are still requiring oxygen on discharge with exertion. Without this you are at risk of respiratory failure and a number of other disabilities, including fatigue, fainting, falls with injury, but also cardiac arrest and . You are highly encouraged to reconsider and allow for oxygen to be arranged until you no longer need it. Please continue your efforts to avoid smoking as it will help reduce progression of lung disease, reduce risk of cardiovascular disease, including heart attack, stroke, as well as various cancers. Please complete antibiotic infusion course for the Serratia growing in sputum which is resistant to multiple antibiotics. Please follow-up with pulmonology in office. Please maintain CPAP at night for sleep apnea. Please avoid fluid overload. Continue your normal Lasix dose. Continue low-salt diet. Limit fluid/water intake to less than 1500 mL/day. Please follow-up with your primary care doctor regarding congestive heart failure and kidney function. Please discuss with your primary care doctor regarding mild hematuria, as well as evaluation to exclude any urinary tract cancer with history of smoking. If you experience severe shortness of breath, chest pain, any severe bleeding, any other concerning symptoms, please call an ambulance and proceed to ER. 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
[2020-06-29] MEDS: ertapenem 1,000 MG in sodium chloride 0.9% (plus) 100 ML 200 MG IV (16:13)
[2020-06-29 17:06] LABS: Glucose Point of Care 243 mg/dL (70-110)
--- NOTE | 2020-06-29 17:42 | PC.NURSE ---
[facility] prescriptions and Pt refused all them except He is wanting us to call the predinsone to [facility]. H refused home oxyten also.
== END 2020-06-29 17:46 | disposition home or self-care (01) | DRG 190 ==
LOC: ER 11:24 → MEDSURG 18:55
PROVIDERS: Admitting Provider Family Medicine; Emergency Provider Family Medicine; PCP Family Medicine; Visit Provider Internal Medicine
DX: J44.1 Chronic obstructive pulmonary disease with (acute) exacerbation (principal); I50.43 Acute on chronic combined systolic (congestive) and diastolic (congestive) heart failure; J96.12 Chronic respiratory failure with hypercapnia; I13.0 Hypertensive heart and chronic kidney disease with heart failure and stage 1 through stage 4 chronic kidney disease, or unspecified chronic kidney disease; Z68.42 Body mass index [BMI] 45.0-49.9, adult; Z99.81 Dependence on supplemental oxygen; Z87.891 Personal history of nicotine dependence; E11.22 Type 2 diabetes mellitus with diabetic chronic kidney disease; N18.2 Chronic kidney disease, stage 2 (mild); E78.5 Hyperlipidemia, unspecified; Z95.810 Presence of automatic (implantable) cardiac defibrillator; Z79.4 Long term (current) use of insulin; I25.5 Ischemic cardiomyopathy; E66.01 Morbid (severe) obesity due to excess calories; G47.33 Obstructive sleep apnea (adult) (pediatric); I25.2 Old myocardial infarction; I25.10 Atherosclerotic heart disease of native coronary artery without angina pectoris; Z95.5 Presence of coronary angioplasty implant and graft; K59.00 Constipation, unspecified; Z88.2 Allergy status to sulfonamides; R31.29 Other microscopic hematuria; Z79.82 Long term (current) use of aspirin; Z79.51 Long term (current) use of inhaled steroids
CPT/HCPCS: 12345; 36415; 36416; 36600; 51702; 71045; 80048; 80051; 80053; 82330; 82805; 82962; 83036; 83605; 85025; 87040; 87070; 87077; 87186; 87205; 87426; 94640; 94660; 94664; 96372; 96375; 99283; J0743; J1335; J1650; J1815 ×2; J1940; J2060; J2930; J7512; J7626; Q0144

== ENCOUNTER 2020-06-30 11:42 | Day surgery (SDC) | payer OTHER, SELFPAY ==
[2020-06-30 12:05] VITALS: BP 129/105; PULSE 93; RESP 18; O2SAT 95; BMI 39.2
[2020-06-30] MEDS: ertapenem 1,000 MG in sodium chloride 0.9% (plus) 100 ML 200 MG IV (13:20)
--- NOTE | 2020-06-30 14:27 | PC.NURSE ---
1205-PT STATED WHEN HE GOT HERE THAT HE WANTED TO GO TO THE ER WHEN HIS INFUSION WAS DONE BECAUSE HE DIDN'T FEEL ANY BETTER THAN WHEN HE WAS DISCHARGED LAST NIGHT. HE SAID HE WAS STILL SOB. 1400-PT TAKEN TO ER PER REQUEST FOR SOB. MEKA LEFT IN RT F/A AND REPORT CALLED TO JONO HINTON
== END 2020-06-30 16:00 ==
PROVIDERS: PCP Family Medicine; Visit Provider Internal Medicine
DX: J44.9 Chronic obstructive pulmonary disease, unspecified (principal)
CPT/HCPCS: 96365; J1335

== ENCOUNTER 2020-06-30 14:04 | Observation (INO) | payer OTHER, SELFPAY ==
[2020-06-30] VITALS (10 sets, daily range): BP systolic 113–120; BP diastolic 78–95; PULSE 68–100; RESP 17–21; TEMP 36.5–36.7; O2SAT 89–93; BMI 43.2
--- NOTE | 2020-06-30 14:33 | W.ED.SOB ---
HPI - SOB/Dyspnea General: Chief Complaint: Shortness of Breath/Dyspnea Stated Complaint: sob Time Seen by Provider: 06/30/20 14:19 History of Present Illness: HPI Narrative: This patient is a 55-year-old male presenting with shortness of breath. He was admitted to the hospital and discharged last night. He had a negative Covid test. He was being treated for a multidrug-resistant pneumonia. He also has a history of COPD and CHF with ischemic cardiomyopathy. He is morbidly obese. He is a smoker. He apparently qualified for oxygen but refused it. He came in today for an IV infusion and was so short of breath that he had trouble ambulating to get to outpatient services. Because he is feeling worse and more short of breath he came to the ER. He feels like he needs to be readmitted. He denies fevers, vomiting. He denies chest pain. MD elicited complaint: shortness of breath Pertinent past history: COPD, congestive heart failure and diabetes Context: recent illness and occurred during exertion Timing: constant Severity: moderate Exacerbating factors: exertion Relieving factors: oxygen and rest Known history of: COPD, congestive heart failure and diabetes Associated symptoms: Reports no associated symptoms; Deny abdominal pain, chest pain, fever(s), nausea or vomiting Treatment prior to arrival: bronchodilator Review of Systems General: Reports: 10 or more systems reviewed and unremarkable except in HPI and below Const: Reports: fatigue and malaise; Denies: fever(s) or chills Eyes: Denies: change in vision ENMT: Denies: odynophagia Card: Denies: chest pain or swelling of feet/ankles Resp: Reports: dyspnea, productive cough and wheezing; Denies: non-productive cough GI: Denies: abdominal pain, nausea or vomiting : Denies: flank pain Musc: Denies: neck pain or back pain Skin/Breast: Denies: rash Neuro: Denies: headache(s), numbness in extremities or weakness in extremities Ruben/Lymph: Denies: easy bruising or easy bleeding PFS ED PFSH: Medical History Chronic hypercapnic respiratory failure 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 2 diabetes mellitus COPD (chronic obstructive pulmonary disease) -not oxygen dependent Hyperlipidemia Hypertension 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 dependent diabetes mellitus Ischemic cardiomyopathy Morbid obesity Obstructive sleep apnea -non compliant with CPAP ST elevation myocardial infarction (STEMI) of inferior wall Tobacco abuse Surgical History History of cardiac defibrillator placement History of coronary artery stent placement -hx of CAD with inferior wall [place] s/p RCA stent, LAD stent Family History Denies family history of CAD (coronary artery disease) Social History Smoking and tobacco status: current every day smoker cigarettes Packs smoked per day: 1 Years cigarettes smoked: 40 Quit status (tobacco): considering quitting Alcohol intake: never Lives independently: Yes Household members: none Marital status: Single service: Yes Current occupational status: disabled Pets and animals: Yes Pets & animals: dog(s) History of recent travel: No Current gender identity: Male Physical Exam Const: COMMON NORMALS: no acute distress, patient oriented x3, no limitations and alert GENERAL APPEARANCE: cooperative NUTRITIONAL APPEARANCE: obese morbidly obese HENMT: HEAD & SCALP: normal to inspection FACE & SINUS: normal facial exam Eye: GENERAL EYE: appearance normal, both eyes and all related structures Neck/C-Spine: COMMON NORMALS: supple, no meningeal signs and no JVD Chest: COMMONS NORMALS: normal inspection of the chest Resp: COMMON NORMALS: normal respiratory effort and No use of accessory muscles AUSCULTATION: wheezes and diminished lung sounds Cardio: COMMON NORMALS: no JVD, regular rate, regular rhythm and No murmurs present (Cardio) RATE: regular rate RHYTHM: regular rhythm GI: COMMON NORMALS: Normal to inspection, nondistended, normoactive bowel sounds present, Soft to palpation and non-tender INSPECTION: Yes normal to inspection AUSCULTATION: Yes normoactive bowel sounds PALPATION: Yes Soft to palpation Back/Pelvis: COMMON NORMALS: thoracic and lumbar spine normal to inspection Extremity: COMMON NORMALS: normal to inspection Neuro: COMMON NORMALS: patient oriented x3, moves all extremities, no focal motor deficits and no sensory deficits noted SENSORIUM/ORIENTATION: Yes alert MENINGEAL SIGNS: Yes no meningeal signs Psych: COMMON NORMALS: mental status grossly normal, cooperative and normal affect Skin: COMMON NORMALS: no rashes or lesions noted and turgor normal GENERAL SKIN EXAM: no rashes or lesions noted and turgor normal Course ED course: Patient's work-up is unchanged from his recent discharge. His oxygen saturation hovered around 90% for the most part. I tried to arrange for outpatient home oxygen but because of his [facility] insurance we were not able to make that happen. He will need to be admitted overnight tonight hopefully they can set that up during office hours as it has to go through the PCPs office. Vital Signs: Vital signs: Vital Signs Temperature 98.6 F 07/01/20 18:01 Pulse Rate 83 07/01/20 18:01 Respiratory Rate 16 07/01/20 18:01 Blood Pressure 114/78 07/01/20 18:01 Pulse Oximetry 92 07/01/20 18:01 MDM - SOB/Dyspnea Lab Data: Labs: Lab Results 06/30/20 06/30/20 Range/Units 15:00 15:00 WBC 16.2 H (4.0-10.0) 10^3/ uL RBC 6.06 H (4.1-5.3) 10^6/u L Hgb 17.6 H (11.7-16.6) g/dL Hct 55.2 H (42.0-52.0) % MCV 91.1 (80-94) fL MCH 29.0 (28.0-34.0) pg MCHC 31.9 (30.0-36.0) g/dL RDW 16.3 H (12.1-15.1) % Plt Count 260 (130-400) 10^3/c mm MPV 10.9 H (7.4-10.4) fL Neut % (Auto) 85.3 % Lymph % (Auto) 5.1 % Beaver % (Auto) 7.3 % Eos % (Auto) 1.4 % Baso % (Auto) 0.2 % Neut # (Auto) 13.82 H (1.8-7.7) 10^3/u L Lymph # (Auto) 0.8 (0.8-4.8) 10^3/u L Beaver # (Auto) 1.2 H (0.2-0.9) 10^3/u L Eos # (Auto) 0.2 (0.0-0.8) 10^3/u L Baso # (Auto) 0.0 (0.0-0.1) 10^3/u L Nucleated RBC % (a uto) 0 % Nucleated RBCs # 0.0 /100WBC Sodium 140 (136-145) mmol/L Potassium 4.6 (3.5-5.1) mmol/L Chloride 95 L (98-107) mmol/L Carbon Dioxide 39 H (22-29) mmol/L Anion Gap 10.6 (5-19) BUN 31 H (6-20) mg/dL Creatinine 0.9 (0.7-1.2) mg/dL GFR Calculation 87.3 L (90-130) mL/min Glucose 88 (65-115) mg/dL Calculated Osmolal ity 296 H (285-295) mOsm/k g Calcium 9.1 (8.5-10.5) mg/dL Total Bilirubin 0.5 (0.15-1.2) mg/dL AST 29 (0-40) U/L ALT 40 (0-41) U/L Alkaline Phosphata se 63 (40-130) IU/L NT-Pro-B Natriuret Pep 1999 H (0-125) pg/mL Total Protein 6.6 (6.6-8.7) g/dL Albumin 4.1 (3.5-5.2) g/dL Globulin 2.5 (1.3-4.6) g/dL Discharge Plan Discharge Patient Disposition: Placed in Observation Admit Provider: Jorge Yañez Clinical Impression: Acute exacerbation of chronic obstructive airways disease, Infection with multi-drug resistant microorganisms, Hypoxia Discharge Diet: Cardiac and Diabetic Discharge Activity: Resume usual activity, Increase activity as tolerated and Oxygen as instructed Coding Level of Care Code ED Spot Welder for [place] Fwd Exam Comprehensive
[2020-06-30] MEDS: predniSONE 20 mg Tablet 60 MG PO (14:46)
[2020-06-30 15:11] LABS: Basophils % 0.2 %; Eosinophils # 0.2 10^3/uL (0.0-0.8); Eosinophils % 1.4 %; Hematocrit 55.2 % (42.0-52.0); Hemoglobin 17.6 g/dL (11.7-16.6); Lymphocytes # 0.8 10^3/uL (0.8-4.8); Lymphocytes % 5.1 %; Mean Corpuscular HGB Conc 31.9 g/dL (30.0-36.0); Mean Corpuscular Volume 91.1 fL (80-94); Mean Platelet Volume 10.9 fL (7.4-10.4); Monocytes # 1.2 10^3/uL (0.2-0.9); Monocytes % 7.3 %; Neutrophils # 13.82 10^3/uL (1.8-7.7); Neutrophils % 85.3 %; Nucleated Red Blood Cells % 0 %; Platelet Count 260 10^3/cmm (130-400); Red Blood Count 6.06 10^6/uL (4.1-5.3); Red Cell Distribution Width 16.3 % (12.1-15.1); White Blood Count 16.2 10^3/uL (4.0-10.0)
[2020-06-30 15:38] LABS: Alanine Aminotransferase 40 U/L (0-41); Albumin Level 4.1 g/dL (3.5-5.2); Alkaline Phosphatase 63 IU/L (40-130); Anion Gap 10.6 (5-19); Aspartate Amino Transferase 29 U/L (0-40); Blood Urea Nitrogen 31 mg/dL (6-20); Calcium 9.1 mg/dL (8.5-10.5); Carbon Dioxide 39 mmol/L (22-29); Chloride 95 mmol/L (98-107); Globulin 2.5 g/dL (1.3-4.6); Glomerular Filtration Rate 87.3 mL/min (90-130); Glucose 88 mg/dL (65-115); NT Pro B Type Natriuretic Pept 1999 pg/mL (0-125); Osmolality Calculated 296 mOsm/kg (285-295); Potassium 4.6 mmol/L (3.5-5.1); Sodium 140 mmol/L (136-145); Total Bilirubin 0.5 mg/dL (0.15-1.2); Total Protein 6.6 g/dL (6.6-8.7)
--- NOTE | 2020-06-30 15:40 | XR_ITS ---
WS: [id number] Exam: XR chest 1V portable [id number] Date/Time of Exam: 06/30/2020 3:56 PM Reason For Exam: SOB Comparison 06/24/2020. The lungs are hyperinflated and clear. No pleural effusions. No consolidating infiltrates. Heart size is top limits normal. The mediastinum and bony thorax are unremarkable. A permanent cardiac pacer brooks perimposes the left chest. XR/XR chest 1V portable [id number] IMPRESSION: 1. Pulmonary hyperinflation. No acute process noted. Stable.
--- NOTE | 2020-06-30 17:29 | DCPLANNER ---
equipment hire manager was asked to arrange home 02 for patient. equipment hire manager noticed that patient has [facility] insurance, correctional casework specialist called [facility] to arrange for the oxygen. equipment hire manager was informed that the facility does not accept VA insurance. equipment hire manager called [facility] after hours and was told that patient would have to see his primary care with the [facility] to get this arranged from his primary care. equipment hire manager informed ED physician of this.
--- NOTE | 2020-06-30 19:00 | PC.NURSE ---
Report from JONO Shine
--- NOTE | 2020-06-30 19:06 | PM.HP ---
Providers/Chief Complaint Primary Care Provider: Karla Ryan MD Chief Complaint: sob History of Present Illness 55-year-old gentleman returns to the hospital for evaluation in the emergency department due to today while coming in for significant dyspnea on exertion infusion of ertapenem for multidrug-resistant Serratia noted during recent hospitalization for treatment of COPD exacerbation, CHF exacerbation. At discharge she had qualified for 2 L of oxygen with exertion, however, declined for oxygen to be arranged. He states he is taking his medications as previously, today including with 20 mg of Lasix. He states he is now wheezing slightly compared to discharge, but otherwise feels about the same. States that dyspnea is mostly with exertion. Has not been running any fevers. Denies any chest pain or pressure. States he has not picked up smoking and has now quit for good. He is willing to be set up with oxygen. Attempt was made to do so in the ER, however, could not be done due to the time of day, and oxygenating to be set up through the [facility]. He is agreeable to stay for observation given degree of dyspnea on exertion. In ER chest x-ray is unremarkable. He is afebrile, saturating 89% on room air. Leukocytosis 16.2, BNP is 1999. He is weighing 117.9 kg. Review of Systems Const: Denies: fever(s), chills, body aches or malaise Eyes: Denies: change in vision or eye redness ENMT: Denies: throat pain, oral sores or ear or mastoid pain Card: Reports: edema (Minimal LE edema); Denies: chest pain, pre-syncope or dyspnea on exertion Resp: Reports: dyspnea (on exertion) and wheezing; Denies: productive cough, change in phlegm color or hemoptysis GI: Denies: abdominal pain, nausea, vomiting, diarrhea, constipation, hematochezia or melena : Denies: flank pain, difficulty urinating, urinary frequency or hematuria Musc: Denies: back pain, joint swelling or joint redness Skin/Breast: Denies: rash, sores or new lesions Neuro: Denies: headache(s), numbness in extremities, weakness in extremities, dizziness, confusion or seizure-like activity Endo: Denies: polyuria or polydipsia Ruben/Lymph: Denies: easy bleeding or purpura All/Imm: Denies: urticaria, throat swelling or tongue swelling Medications/Allergies Home Medications Medication Instructions Recorded Confirmed Last Taken Type albuterol sulfate 5 mg/mL(0.5 %) 2.5 mg INHALATION Q4H PRN 04/05/20 06/30/20 06/30/20 History solution for nebulization albuterol sulfate 90 mcg/actuation 1 inh INHALATION QID 04/05/20 06/30/20 06/30/20 History aerosol inhaler aspirin 81 mg tablet,delayed 81 mg PO DAILY 04/05/20 06/30/20 06/30/20 History release atorvastatin 80 mg tablet 80 mg PO DAILY 04/05/20 06/30/20 06/30/20 History furosemide 20 mg tablet 20 mg PO DAILY 04/05/20 06/30/20 06/30/20 History gabapentin 600 mg tablet 600 mg PO TID 04/05/20 06/30/20 06/30/20 History insulin glargine 100 unit/mL (3 65 unit SUBCUT DAILY 04/05/20 06/30/20 06/29/20 History mL) subcutaneous pen metformin 500 mg tablet 500 mg PO BID 04/05/20 06/30/20 06/30/20 History methocarbamol 500 mg tablet 500 mg PO BEDTIME 04/05/20 06/30/20 06/30/20 History nitroglycerin 0.4 mg sublingual 0.4 mg SUBLINGUAL Q5M PRN 04/05/20 06/30/20 Unknown History tablet ticagrelor 90 mg tablet 90 mg PO BID 04/05/20 06/30/20 06/30/20 History tramadol 50 mg tablet 50 mg PO Q6H PRN 04/05/20 06/30/20 06/30/20 History budesonide-formoterol HFA 160 2 puff INHALATION BID 06/08/20 06/30/20 06/30/20 History mcg-4.5 mcg/actuation aerosol inhaler tiotropium bromide 2.5 2 puff INHALATION DAILY 06/08/20 06/30/20 06/30/20 History mcg/actuation mist for inhalation Jardiance 25 mg PO DAILY 06/24/20 06/30/20 06/30/20 History Ozempic 1 mg SUBCUT Q7D 06/24/20 06/30/20 Unknown History acetaminophen 1,000 mg PO TID PRN 06/24/20 06/30/20 06/30/20 History benzonatate 200 mg PO TID PRN 06/24/20 06/30/20 06/30/20 History cetirizine 10 mg PO DAILY 06/24/20 06/30/20 06/30/20 History insulin aspart U-100 [Novolog 16 unit SUBCUT TID 06/24/20 06/30/20 Unknown History Flexpen U-100 Insulin] ipratropium-albuterol 3 ml INHALATION QID PRN 06/24/20 06/30/20 06/30/20 History metoprolol tartrate 25 mg PO BID 06/24/20 06/30/20 06/30/20 History famotidine 20 mg PO BID #60 tab 06/28/20 06/30/20 06/30/20 Rx prednisone 60 mg PO DAILY #20 tab 06/28/20 06/30/20 06/30/20 Rx bisacodyl [Dulcolax (bisacodyl)] 5 mg PO BID PRN #14 tab 06/29/20 06/30/20 06/30/20 Rx ertapenem 1 g IM DAILY 4 Days #4 ea 06/29/20 06/30/20 06/30/20 Rx nicotine 1 patch TRANSDERMAL DAILY #30 ea 06/29/20 06/30/20 Unknown Rx polyethylene glycol 3350 17 g PO BID #60 ea 06/29/20 06/30/20 06/30/20 Rx Allergies Allergy/AdvReac Type Severity Reaction Status Date / Time Sulfa (Sulfonamide Allergy ALGY-Anaphy Verified 06/30/20 14:17 Antibiotics) laxis PFSH Acute PFSH: Medical History Chronic hypercapnic respiratory failure 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 2 diabetes mellitus COPD (chronic obstructive pulmonary disease) -not oxygen dependent Hyperlipidemia Hypertension 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 dependent diabetes mellitus Ischemic cardiomyopathy Morbid obesity Obstructive sleep apnea -non compliant with CPAP ST elevation myocardial infarction (STEMI) of inferior wall Tobacco abuse Surgical History History of cardiac defibrillator placement History of coronary artery stent placement -hx of CAD with inferior wall [place] s/p RCA stent, LAD stent Family History Denies family history of CAD (coronary artery disease) Social History Smoking and tobacco status: current every day smoker cigarettes Packs smoked per day: 1 Years cigarettes smoked: 40 Quit status (tobacco): considering quitting Alcohol intake: never Lives independently: Yes Household members: none Marital status: Single service: Yes Current occupational status: disabled Pets and animals: Yes Pets & animals: dog(s) History of recent travel: No Current gender identity: Male Vitals/I&O/Wt Last Vital Signs Temp 98.0 F 06/30/20 14:08 Pulse 85 06/30/20 17:36 Resp 17 06/30/20 17:36 BP 118/78 06/30/20 17:36 Pulse Ox 89 L 06/30/20 17:36 Weight last 48 hrs Weight 117.934 kg Physical Exam Const: COMMON NORMALS: no acute distress, patient oriented x3 and alert GENERAL APPEARANCE: cooperative ORIENTATION/CONSCIOUSNESS: Yes awake HENMT: COMMON NORMALS: oropharynx normal Neck/C-Spine: COMMON NORMALS: no JVD Resp: COMMON NORMALS: normal respiratory effort AUSCULTATION: wheezes (mild) Cardio: COMMON NORMALS: no JVD, regular rhythm, S1 normal heart sound present, S2 normal heart sound present and No murmurs present (Cardio) RHYTHM: regular rhythm HEART SOUNDS: S1 normal heart sound present and S2 normal heart sound present GI: COMMON NORMALS: Normal to inspection, nondistended, normoactive bowel sounds present, Soft to palpation and non-tender PALPATION: Yes Soft to palpation Extremity: COMMON NORMALS: no joint enlargement GENERAL: Yes edema (1+) Neuro: COMMON NORMALS: patient oriented x3 and moves all extremities Skin: COMMON NORMALS: no rashes or lesions noted GENERAL SKIN EXAM: no rashes or lesions noted Data : 06/30/20 15:00 06/30/20 15:00 A&P Assessment and plan (1) Hypoxia: He is now agreeable to set him up with oxygen. Will request case management to see him. At this time continue prednisone. Will give ertapenem for multidrug-resistant Serratia. Breathing treatments. Flutter valve for productive cough. Oxygen support. Nightly CPAP. Home O2 evaluation. Status: Acute (2) Infection with multi-drug resistant microorganisms: Has been scheduled for additional 4 doses of ertapenem by outpatient infusion. Status: Acute (3) Acute exacerbation of chronic obstructive airways disease: As above. Status: Acute Additional A&P Information Recent CHF exacerbation: Continue Lasix p.o., 40 mg daily Ischemic cardiomyopathy Noted microscopic hematuria during past admission: Please refer to prior discharge summary. Tobacco abuse: He states that he is quit smoking. Continue nicotine patches. DM 2 HLD HTN CKD 2 LORI: Continue nightly CPAP Status post ICD CAD Attestations Medical Necessity Statement*: Place in observation. Coding Level of Care Code Acute Home Health Care Provider for [place] Fwd Diagnoses Hypoxia R09.02 Infection with multi-drug resistant microorganisms Acute exacerbation of chronic obstructive airways disease J44.1
--- NOTE | 2020-06-30 19:27 | PC.NURSE ---
Caregiver from Facility at bedside
--- NOTE | 2020-06-30 19:48 | PC.NURSE ---
Pt stated he had received an antiboitic this AM and was wondering why he would get another dose. checked with pharmacy. Hold this dose on OCT, per pharmacy.
--- NOTE | 2020-06-30 20:20 | PC.NURSE ---
Patient arrived from the ED via wheelchair. When entering the room the patient demanded of this nurse; BiPap, breathing treatments every 3 hours, a pain pill, a sandwich, and a drink . Otherwise patient is under no distress, no SOB.
--- NOTE | 2020-06-30 20:48 | PC.NURSE ---
This nurse was able to auscultate expiratory wheezes, however, the patient may be doing this himself.
[2020-06-30] MEDS: ipratropium-albuterol 3 mL Neb INHALATION (20:56)
[2020-06-30 21:31] LABS: Glucose Point of Care 155 mg/dL (70-110)
[2020-06-30] MEDS: TRAMadol 50 mg Tablet PO (21:35)
[2020-07-01] VITALS (14 sets, daily range): BP systolic 113–125; BP diastolic 60–88; PULSE 70–91; RESP 16–18; TEMP 36.5–37.1; O2SAT 91–98
--- NOTE | 2020-07-01 05:11 | NUR.SHIFT ---
Patient's demeanor has been wanting throughout the night. Otherwise patient has shown no zero signs of hypoxia on exertion. Patient has used the bathroom multiple times throughout the night with zero assistance or complaints.
[2020-07-01 05:17] LABS: Basophils % 0.1 %; Eosinophils % 0.1 %; Hematocrit 51.1 % (42.0-52.0); Hemoglobin 15.8 g/dL (11.7-16.6); Lymphocytes # 0.8 10^3/uL (0.8-4.8); Lymphocytes % 6.1 %; Mean Corpuscular HGB Conc 30.9 g/dL (30.0-36.0); Mean Corpuscular Hemoglobin 28.6 pg (28.0-34.0); Mean Corpuscular Volume 92.6 fL (80-94); Mean Platelet Volume 11.4 fL (7.4-10.4); Monocytes # 0.6 10^3/uL (0.2-0.9); Monocytes % 4.9 %; Neutrophils # 10.86 10^3/uL (1.8-7.7); Neutrophils % 88.3 %; Nucleated Red Blood Cells % 0 %; Platelet Count 211 10^3/cmm (130-400); Red Blood Count 5.52 10^6/uL (4.1-5.3); White Blood Count 12.3 10^3/uL (4.0-10.0)
[2020-07-01] MEDS: TRAMadol 50 mg Tablet PO (05:43)
[2020-07-01 05:56] LABS: Alanine Aminotransferase 32 U/L (0-41); Albumin Level 3.2 g/dL (3.5-5.2); Alkaline Phosphatase 58 IU/L (40-130); Blood Urea Nitrogen 35 mg/dL (6-20); Calcium 8.7 mg/dL (8.5-10.5); Carbon Dioxide 36 mmol/L (22-29); Chloride 97 mmol/L (98-107); Globulin 2.2 g/dL (1.3-4.6); Glomerular Filtration Rate 87.3 mL/min (90-130); Glucose 286 mg/dL (65-115); Osmolality Calculated 308 mOsm/kg (285-295); Sodium 140 mmol/L (136-145); Total Bilirubin 0.5 mg/dL (0.15-1.2); Total Protein 5.4 g/dL (6.6-8.7)
[2020-07-01 06:16] LABS: Anion Gap 12.1 (5-19); Potassium 5.1 mmol/L (3.5-5.1)
[2020-07-01 06:17] LABS: Aspartate Amino Transferase 25 U/L (0-40)
[2020-07-01 07:27] LABS: Glucose Point of Care 201 mg/dL (70-110)
[2020-07-01] MEDS: ipratropium-albuterol 3 mL Neb INHALATION ×2 (08:43→13:05)
[2020-07-01] MEDS: nicotine 21 mg Patch 1 PATCH TRANSDERMA (08:52)
[2020-07-01] MEDS: polyethylene glycol 3350 Pkt 17 gm PO (08:52)
[2020-07-01] MEDS: metoprolol tartrate 25 mg Tablet PO (08:53)
[2020-07-01] MEDS: predniSONE 20 mg Tablet 60 MG PO (08:53)
[2020-07-01] MEDS: aspirin 81 mg EC Tablet PO (08:54)
[2020-07-01] MEDS: FUROsemide 40 mg Tablet PO (08:54)
[2020-07-01] MEDS: atorvastatin 40 mg Tablet 80 MG PO (08:54)
[2020-07-01] MEDS: gabapentin 300 mg Capsule 600 MG PO (08:54)
[2020-07-01] MEDS: cetirizine 10 mg Tablet PO (08:54)
[2020-07-01] MEDS: famotidine 20 mg Tablet PO (08:54)
[2020-07-01 09:18] LABS: Glucose Point of Care 231 mg/dL (70-110)
[2020-07-01] MEDS: ticagrelor 90 mg Tablet PO (09:29)
[2020-07-01 11:41] LABS: Glucose Point of Care 116 mg/dL (70-110)
[2020-07-01] MEDS: ertapenem 1,000 MG in sodium chloride 0.9% (plus) 100 ML 200 MG IV (13:33)
--- NOTE | 2020-07-01 15:35 | DCPLANNER ---
imaging center manager emailed patients Home O2 evaluation to [facility], due to the [facility] clinic being closed. [facility] the [facility] called family service caseworker and stated that someone would sign the order and get oxygen placed for patient.
[2020-07-01 17:23] LABS: Glucose Point of Care 233 mg/dL (70-110)
--- NOTE | 2020-07-01 17:44 | PM.DCS ---
Discharge Providers Date of Admission: 06/30/20 17:36 Date of Discharge: July 01, 2020 Attending Provider at Admission: Jorge Yañez Attending Provider at Discharge: Jorge Yañez Primary Care Provider: Karla Ryan MD Diagnoses at Discharge Discharge Diagnosis (1) Hypoxia: Status: Acute (2) Infection with multi-drug resistant microorganisms: Status: Acute (3) Acute exacerbation of chronic obstructive airways disease: Status: Acute Other Information Additional DC diagnoses/information: Also noted from prior hospitalization: Hematuria: Incidentally noted mild hematuria. Please reassess for resolution. Ischemic cardiomyopathy with acute CHF exacerbation during prior hospitalization LORI: Not adherent with CPAP Chronic kidney disease stage II HTN HLD Recent smoker: Reports he had quit 2 days prior to last admission on 06/24. Please continue to support cessation. Morbid obesity Chronic respiratory failure Reason for Visit Reason for Visit: sob Hospital Course Hospital Course Please see discharge summary from the preceding hospitalization for additional information. On 06/30 he was placed in observation after was brought to ER after he coming in for outpatient infusion of ertapenem, however, got severely short of breath on exertion trying to get to the infusion center. He was noted to have mild wheezing bilaterally. Denies any other new symptoms. He has been afebrile. Had no chest pain. Has been coughing up phlegm. He denied restarting smoking, and states he has been firm in his cessation. Hyperinflation without acute process seen on chest X-ray. He had refused home oxygen after qualifying for it at discharge day prior, requiring 2 L nasal cannula with exertion, stating that he was better and that he quit smoking. He was wary also of a fire hazard. Risks of not using oxygen even if needed only on temporary basis while recovering were explained by myself and a number of staff prior to discharge, he verbalized understanding, but then still declined. Yesterday in ER after admitting that he gets short of breath with exertion agreed to be set up with oxygen and so was placed in observation as it was too late to set it up at that time through the [place] offices. Today it was also reported to me that he had also refused to take with him his home medications that were delivered from the pharmacy at discharge and so they got returned back to pharmacy. So it appears he had not taken any of the prescribed medications as well. He did receive ertapenem infusion from what I am told. Today's infusion was given to him in the hospital. He received prednisone. Lasix. Advair. DuoNeb. He is doing better today. Wheezing is pretty much resolved again. At rest he is doing quite well. 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 He had agreed for his medications to be again delivered from the pharmacy and stated he will take them since [facility] has had to be closed for security reasons. These are being brought to him from the pharmacy. He is encouraged to complete his antibiotic infusions, take his medications, maintain fluid restriction, wear oxygen while recovering, wear CPAP at night, and follow-up in primary care office. Please see prior hospitalization for details. Do not hesitate to reach out with any questions. Hospital course from preceding hospitalization with discharge on 06/29: 55-year-old gentleman, has CPAP at home but has not been using it, with COPD, obstructive sleep apnea HTN, HLD, DM 2, history of ischemic cardiomyopathy, status post ICD, history of CAD, tobacco abuse, but states has stopped smoking just prior to current admission, previously on Chantix, not normally on oxygen was admitted due to shortness of breath, diffuse wheezing, found to be in COPD distribution, as well as acute CHF exacerbation noted during the hospitalization requiring IV Lasix. COPD exacerbation was treated with BiPAP and oxygen support, IV steroids, empiric antibiotics, initially azithromycin, subsequently switched over to Primaxin due to multidrug-resistant Serratia growing in sputum. Rapid COVID-19 testing was negative. Shortly after his wheezing significantly improved, as well as subjective shortness of breath, as well as oxygenation. He has been weaning down on oxygen, and is only intermittently on low rate nasal cannula. We have discussed with him that on discharge he may require some oxygen, although he has been very reluctant to agree to take oxygen at home. Discussed with him that hypoxia may be transient, but if he does not have oxygen may be life-threatening leading to illness or . Home oxygen assessment is ordered for him. Given multidrug-resistant pulmonary infection, he will complete antibiotic regimen with ertapenem infusions after discharge to complete the course as the only oral antibiotic this organism is sensitive to his Bactrim, and he reports history of severe allergy to sulfa. He is agreeable with outpatient infusions to complete 4 more days of therapy. He will also complete prednisone taper. He is encouraged to keep up his smoking cessation. His volume status is improved, edema appears better. He is continued on home Lasix dose, and is encouraged to continue fluid restriction of 1500 mL/day. Please reassess his COPD, CHF and volume status, and support maintenance of smoking abstinence. He is encouraged to wear his CPAP with sleep. He is referred for follow-up with pulmonology. On presentation noted to have microscopic hematuria, and during the hospital stay had minimal pink discoloration to urine with Burciaga catheter, he was not sure if maybe had pulled on the catheter nicely. Burciaga catheter has been discontinued and he has had no issues urinating. Please reassess hematuria, and if microscopic hematuria still present, in the setting of smoking history please refer for additional assessment to exclude other causes including urinary tract malignancy. Please note, he qualifies for 2L of oxygen with exertion, but is refusing arrangements for oxygen. Please reassess and discuss again. Physical Exam Const: COMMON NORMALS: no acute distress, patient oriented x3 and alert GENERAL APPEARANCE: cooperative ORIENTATION/CONSCIOUSNESS: Yes awake HENMT: COMMON NORMALS: oropharynx normal Neck/C-Spine: COMMON NORMALS: no JVD Resp: COMMON NORMALS: normal respiratory effort AUSCULTATION: wheezes (minimal) Cardio: COMMON NORMALS: no JVD, regular rhythm, S1 normal heart sound present, S2 normal heart sound present and No murmurs present (Cardio) RHYTHM: regular rhythm HEART SOUNDS: S1 normal heart sound present and S2 normal heart sound present GI: COMMON NORMALS: Normal to inspection, nondistended, normoactive bowel sounds present, Soft to palpation and non-tender PALPATION: Yes Soft to palpation Extremity: COMMON NORMALS: no joint enlargement GENERAL: Yes edema (trace) Neuro: COMMON NORMALS: patient oriented x3 and moves all extremities SENSORIUM/ORIENTATION: Yes alert Skin: COMMON NORMALS: no rashes or lesions noted GENERAL SKIN EXAM: no rashes or lesions noted Discharge Data Data Completed and Pending: Completed Studies During Hospitalization Category Date Time Status XR chest 1V trina ble [id number] Stat Exams 06/30/20 15:40 Completed Pending at discharge Category Date Time Status Complete Blood Co unt w/Auto AM LABS Lab 07/02/20 04:00 Ordered Complete Blood Co unt w/Auto AM LABS Lab 07/03/20 04:00 Ordered Comprehensive Met abolic Panel AM LA BS Lab 07/02/20 04:00 Ordered Comprehensive Met abolic Panel AM LA BS Lab 07/03/20 04:00 Ordered Labs from last 24 hours 07/01/20 07/01/20 07/01/20 17:06 11:09 09:00 WBC RBC Hgb Hct MCV MCH MCHC RDW Plt Count MPV Neut % (Auto) Lymph % (Auto) [place] % (Auto) Eos % (Auto) Baso % (Auto) Neut # (Auto) Lymph # (Auto) [place] # (Auto) Eos # (Auto) Baso # (Auto) Nucleated RBC % (a uto) Nucleated RBCs # Sodium Potassium Chloride Carbon Dioxide Anion Gap BUN Creatinine GFR Calculation Glucose POC Glucose 233 116 231 Calculated Osmolal ity Calcium Total Bilirubin AST ALT Alkaline Phosphata se Total Protein Albumin Globulin 07/01/20 07/01/20 07/01/20 06:54 05:05 05:05 WBC 12.3 H RBC 5.52 H Hgb 15.8 Hct 51.1 MCV 92.6 MCH 28.6 MCHC 30.9 RDW 16.0 H Plt Count 211 MPV 11.4 H Neut % (Auto) 88.3 Lymph % (Auto) 6.1 [place] % (Auto) 4.9 Eos % (Auto) 0.1 Baso % (Auto) 0.1 Neut # (Auto) 10.86 H Lymph # (Auto) 0.8 [place] # (Auto) 0.6 Eos # (Auto) 0.0 Baso # (Auto) 0.0 Nucleated RBC % (a uto) 0 Nucleated RBCs # 0.0 Sodium 140 Potassium 5.1 Chloride 97 L Carbon Dioxide 36 H Anion Gap 12.1 BUN 35 H Creatinine 0.9 GFR Calculation 87.3 L Glucose 286 H POC Glucose 201 Calculated Osmolal ity 308 H Calcium 8.7 Total Bilirubin 0.5 AST 25 ALT 32 Alkaline Phosphata se 58 Total Protein 5.4 L Albumin 3.2 L Globulin 2.2 06/30/20 20:43 WBC RBC Hgb Hct MCV MCH MCHC RDW Plt Count MPV Neut % (Auto) Lymph % (Auto) [place] % (Auto) Eos % (Auto) Baso % (Auto) Neut # (Auto) Lymph # (Auto) [place] # (Auto) Eos # (Auto) Baso # (Auto) Nucleated RBC % (a uto) Nucleated RBCs # Sodium Potassium Chloride Carbon Dioxide Anion Gap BUN Creatinine GFR Calculation Glucose POC Glucose 155 Calculated Osmolal ity Calcium Total Bilirubin AST ALT Alkaline Phosphata se Total Protein Albumin Globulin Vitals: Last Vital Signs Temp 98.7 F 07/01/20 11:13 Pulse 83 07/01/20 11:32 Resp 16 07/01/20 11:28 BP 113/77 07/01/20 11:13 Pulse Ox 94 07/01/20 13:43 Discharge Plan Discharge Patient Disposition: Home Condition: Stable Prescriptions: Continued albuterol sulfate 90 mcg/actuation HFA aerosol inhaler 1 inh INHALATION QID RF: 0 albuterol sulfate 5 mg/mL solution for nebulization 2.5 mg INHALATION Q4H PRN (Reason: Shortness Of Breath) RF: 0 aspirin 81 mg tablet,delayed release (DR/EC) 81 mg PO DAILY RF: 0 atorvastatin 80 mg tablet 80 mg PO DAILY RF: 0 Brilinta 90 mg tablet 90 mg PO BID RF: 0 furosemide 20 mg tablet 20 mg PO DAILY RF: 0 gabapentin 600 mg tablet 600 mg PO TID RF: 0 insulin glargine 100 unit/mL (3 mL) insulin pen 65 unit SUBCUT DAILY RF: 0 methocarbamol 500 mg tablet 500 mg PO BEDTIME RF: 0 nitroglycerin 0.4 mg tablet, sublingual 0.4 mg SUBLINGUAL Q5M PRN (Reason: Chest Pain) RF: 0 tramadol 50 mg tablet 50 mg PO Q6H PRN (Reason: Pain) RF: 0 metformin 500 mg tablet 500 mg PO BID RF: 0 Spiriva Respimat 2.5 mcg/actuation mist 2 puff INHALATION DAILY RF: 0 budesonide-formoterol [Symbicort] 160-4.5 mcg/actuation HFA aerosol inhaler 2 puff INHALATION BID RF: 0 ipratropium-albuterol 0.5 mg-3 mg(2.5 mg base)/3 mL Solution For Nebulization 3 ml INHALATION QID PRN (Reason: Shortness Of Breath) RF: 0 cetirizine 10 mg Tablet 10 mg PO DAILY RF: 0 acetaminophen 500 mg Tablet 1,000 mg PO TID PRN (Reason: Pain) RF: 0 benzonatate 100 mg Capsule 200 mg PO TID PRN (Reason: Cough) RF: 0 insulin aspart U-100 [Novolog Flexpen U-100 Insulin] 100 unit/mL (3 mL) Insulin Pen 16 unit SUBCUT TID RF: 0 metoprolol tartrate 25 mg Tablet 25 mg PO BID RF: 0 Jardiance 25 mg Tablet 25 mg PO DAILY RF: 0 Ozempic 1 mg/dose (2 mg/1.5 mL) Pen Injector 1 mg SUBCUT Q7D RF: 0 prednisone 20 mg Tablet 60 mg PO DAILY Qty: 20 RF: 0 famotidine 20 mg Tablet 20 mg PO BID Qty: 60 RF: 0 polyethylene glycol 3350 17 gram Powder In Packet 17 g PO BID Qty: 60 RF: 0 nicotine 21 mg/24 hr Patch 24 Hour 1 patch transdermal DAILY Qty: 30 RF: 0 bisacodyl [Dulcolax (bisacodyl)] 5 mg tablet,delayed release (DR/EC) 5 mg PO BID PRN (Reason: constipation) Qty: 14 RF: 0 ertapenem 1 gram recon soln 1 g IM DAILY 4 Days Qty: 4 RF: 0 Discharge Orders: Discharge Order (Routine); Ordered 07/01/20 Ordered By: Jorge Yañez Other Ambulatory Orders: DME: Oxygen (Order) Location: None Selected Ordered By: Elif Luke Referrals: Karla Ryan MD [Primary Care Provider] - 4-7 days (COPD exacerbation, CHF exacerbation, microscopic hematuria, chronic conditions) Jasmina Hernandez MD [Physician] - 1 month (COPD exacerbation, MDR Serratia in sputum) Discharge Diet: Cardiac and Diabetic Discharge Activity: Resume usual activity, Increase activity as tolerated and Oxygen as instructed Patient Instructions: Chronic Obstructive Pulmonary Disease (ED), COPD Stoplight, Using Oxygen at Home Activity Restrictions/Additional Instructions: Please use oxygen on exertion or when short of breath. If able to measure saturation target 88-92% at all times. Please note you are needing oxygen. This may be on temporary basis. Please note that you may choose not to wear oxygen, but please be aware that failure to use supplemental oxygen when you actually needed in your condition will put you at risk of respiratory failure and a number of conditions including but not limited to fatigue, falls and injury, but also severe disability, cardiac arrest and . Please make sure to take the prescribed medications. Please complete antibiotic infusion course for the Serratia growing in sputum which is resistant to multiple antibiotics. Please follow-up with pulmonology in office. Please maintain CPAP at night for sleep apnea. Please avoid fluid overload. Continue your normal Lasix dose. Continue low-salt diet. Limit fluid/water intake to less than 1500 mL/day. Please follow-up with your primary care doctor regarding congestive heart failure and kidney function. Please discuss with your primary care doctor regarding mild hematuria, as well as evaluation to exclude any urinary tract cancer with history of smoking. If you experience severe shortness of breath, chest pain, any severe bleeding, any other concerning symptoms, please call an ambulance and proceed to ER. Please continue your commendable efforts to avoid smoking as it will help reduce progression of lung disease, reduce risk of cardiovascular disease, including heart attack, stroke, as well as various cancers. 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
--- NOTE | 2020-07-05 13:54 | PC.RESP ---
SMOKING CESSATION AND PULMONARY REHAB INFORMATION SENT TO PATIENT.
== END 2020-07-01 18:03 | disposition home or self-care (01) ==
LOC: ER 17:36 → MEDSURG 19:51
PROVIDERS: Admitting Provider Internal Medicine; Emergency Provider Emergency Medicine; PCP Family Medicine; Visit Provider Internal Medicine
DX: J44.1 Chronic obstructive pulmonary disease with (acute) exacerbation (principal); R09.02 Hypoxemia; Z79.82 Long term (current) use of aspirin; E78.5 Hyperlipidemia, unspecified; E11.22 Type 2 diabetes mellitus with diabetic chronic kidney disease; I12.9 Hypertensive chronic kidney disease with stage 1 through stage 4 chronic kidney disease, or unspecified chronic kidney disease; N18.2 Chronic kidney disease, stage 2 (mild); Z79.4 Long term (current) use of insulin; E66.01 Morbid (severe) obesity due to excess calories; Z68.41 Body mass index [BMI] 40.0-44.9, adult; G47.33 Obstructive sleep apnea (adult) (pediatric); I25.2 Old myocardial infarction; F17.210 Nicotine dependence, cigarettes, uncomplicated
CPT/HCPCS: 12345; 36415; 36416; 71045; 80053; 82962; 83880; 85025; 94640; 94660; 94664; 96365; 96372; 99283; 99285; G0378; J1335; J1815; J7512; J7611

== ENCOUNTER 2020-07-02 11:20 | Outpatient (CLI) | payer OTHER, SELFPAY ==
[2020-07-02 12:00] VITALS: BP 110/84; PULSE 100; RESP 18; TEMP 36.6; O2SAT 94; BMI 43.9
[2020-07-02] MEDS: ertapenem 1,000 MG in sodium chloride 0.9% (plus) 100 ML 200 MG IV (12:06)
[2020-07-03] MEDS: ertapenem 1,000 MG in sodium chloride 0.9% (plus) 100 ML 200 MG IV (11:25)
[2020-07-03 11:34] VITALS: BP 128/77; PULSE 90; RESP 20; TEMP 36.3; O2SAT 97
== END 2020-07-02 11:21 | disposition home or self-care (01) ==
PROVIDERS: PCP Family Medicine; Visit Provider Internal Medicine
DX: J44.9 Chronic obstructive pulmonary disease, unspecified (principal)
CPT/HCPCS: 96365; J1335

== ENCOUNTER → 2020-07-08 10:18 | Outpatient (BNVA) | payer OTHER, SELFPAY | PROVIDERS: PCP Family Medicine; Visit Provider Internal Medicine Critical Care Medicine | DX: Z20.828 Contact with and (suspected) exposure to other viral communicable diseases (principal); Z01.812 Encounter for preprocedural laboratory examination | CPT/HCPCS: 87635 ==

== ENCOUNTER 2020-07-12 06:00 | Outpatient (RCR) | payer OTHER, SELFPAY | END 2020-08-11 23:59 | disposition home or self-care (01) | LOC: SPT 06:00 | PROVIDERS: PCP Family Medicine; Referring Provider Family Medicine; Visit Provider Family Medicine | DX: M54.5 Low back pain (principal) | CPT/HCPCS: 97110 ==

== ENCOUNTER 2020-07-12 10:15 | Outpatient (CLI) | payer OTHER, SELFPAY ==
--- NOTE | 2020-07-12 11:03 | PFTS_ITS ---
Date of Study:07/12/20 Date of Dictation: MECHANICS: Forced vital capacity (FVC) is reduced. Forced expiratory volume in one second (FEV1) is reduced. FEV1/FVC is reduced. FLOW VOLUME LOOP: Reduced flow at all lung volumes. LUNG VOLUMES: Total lung capacity (TLC) is reduced. Residual volume (RV) is normal. DIFFUSING CAPACITY FOR CARBON MONOXIDE: Normal. INTERPRETATION: The postbronchodilator spirometry is consistent with severe obstruction. There is no significant postbronchodilator response. The lung volumes are consistent with moderate restriction. Gas exchange (DLCO) is normal, which is surprising given the patient's spirometric findings. MTDD
== END 2020-07-12 10:16 | disposition home or self-care (01) ==
LOC: RT 10:17
PROVIDERS: PCP Family Medicine; Visit Provider Internal Medicine Critical Care Medicine
DX: J96.12 Chronic respiratory failure with hypercapnia (principal)
CPT/HCPCS: 94060; 94726; 94729; J7611

== ENCOUNTER 2020-07-18 08:06 | Outpatient (CLI) | payer OTHER, SELFPAY ==
--- NOTE | 2020-07-18 08:17 | CT_ITS ---
WS: [id number] CT CHEST TECHNIQUE: Contrast enhanced CT of the chest with coronal and sagittal reformatted images. CLINICAL INFORMATION: SAILOLITHISASIS COMPARISON: 2 DLP: 580.[address] scans at [facility] use at least one of these dose optimization techniques: automat ed exposure control; mA and/or kV adjustment per patient size (includes targeted exams where dose is matched to clinical indication); or iterative reconstruction. FINDINGS: Subsegmental atelectasis in the paramedian upper lobes bilaterally. Mild chronic emphysematous change s. No acute pulmonary infiltrates. No focal pneumonia or pleural fluid. No mediastinal or hilar lymph adenopathy. Normal caliber thoracic aorta. Proximal main pulmonary arteries are normal. No axillary l ymphadenopathy. Adrenal glands are normal. Hypertrophic changes thoracic spine. Chronic left rib fractures with callu s formation. CT/CT chest w con* [id number] IMPRESSION: No acute chest findings
--- NOTE | 2020-07-18 08:17 | CT_ITS ---
WS: [id number] CT NECK TECHNIQUE: Contrast-enhanced CT of the neck with coronal and sagittal reformatted images. CLINICAL INFORMATION: OTHER DISEASES OF SALIVARY GLANDS COMPARISON: None. DLP: 3093.[address] scans at [facility] use at least one of these dose optimization techniques: automat ed exposure control; mA and/or kV adjustment per patient size (includes targeted exams where dose is matched to clinical indication); or iterative reconstruction. FINDINGS: Parotid and submandibular glands are normal. No cervical lymphadenopathy. No salivary calculi. No supraglottic or glottic mass. Normal parapharyngeal fat. Normal posterior nasopharynx. Normal vall ecula and piriform sinuses. No cervical lymphadenopathy. Lung apices are normal. CT/CT neck w con* [id number] IMPRESSION: Normal neck CT
[2020-07-18] MEDS: iohexol 300 mg/mL 100 mL Btl IV ×2 (08:51→08:52)
== END 2020-07-18 08:07 | disposition home or self-care (01) ==
PROVIDERS: PCP Family Medicine; Visit Provider Specialist
DX: K11.8 Other diseases of salivary glands (principal)
CPT/HCPCS: 70491; 71260; Q9967

== ENCOUNTER 2020-11-17 11:09 | Outpatient (RCR) | payer OTHER, SELFPAY | END 2020-12-09 23:59 | disposition home or self-care (01) | LOC: SPT 11:09 | PROVIDERS: PCP Family Medicine; Referring Provider Orthopaedic Surgery; Visit Provider Orthopaedic Surgery | DX: M75.42 Impingement syndrome of left shoulder (principal); M75.41 Impingement syndrome of right shoulder | CPT/HCPCS: 97110; 97161 ==

== ENCOUNTER 2020-12-10 06:00 | Outpatient (RCR) | payer OTHER, SELFPAY | END 2021-01-09 23:59 | disposition home or self-care (01) | LOC: SPT 06:00 | PROVIDERS: PCP Family Medicine; Referring Provider Orthopaedic Surgery; Visit Provider Orthopaedic Surgery | DX: M75.42 Impingement syndrome of left shoulder (principal); M75.41 Impingement syndrome of right shoulder | CPT/HCPCS: 97110 ==

== ENCOUNTER 2021-01-10 06:00 | Outpatient (RCR) | payer OTHER, SELFPAY | END 2021-02-08 23:59 | disposition home or self-care (01) | LOC: SPT 06:00 | PROVIDERS: PCP Family Medicine; Referring Provider Orthopaedic Surgery; Visit Provider Orthopaedic Surgery | DX: M75.42 Impingement syndrome of left shoulder (principal); M75.41 Impingement syndrome of right shoulder | CPT/HCPCS: 97110 ==

== ENCOUNTER → 2021-02-08 13:18 | Outpatient (BNVA) | payer OTHER, SELFPAY | PROVIDERS: PCP Family Medicine; Visit Provider Internal Medicine Cardiovascular Disease | DX: I25.5 Ischemic cardiomyopathy (principal); I10 Essential (primary) hypertension; I25.10 Atherosclerotic heart disease of native coronary artery without angina pectoris | CPT/HCPCS: 80048 ==

== ENCOUNTER → 2021-03-02 16:45 | Outpatient (BNVA) | payer OTHER, SELFPAY | PROVIDERS: PCP Family Medicine; Visit Provider Nurse Practitioner Family | DX: I50.23 Acute on chronic systolic (congestive) heart failure (principal) | CPT/HCPCS: 80048; 83880 ==

== ENCOUNTER 2021-03-27 06:00 | Outpatient (RCR) | payer OTHER, SELFPAY | END 2021-04-11 23:59 | disposition home or self-care (01) | LOC: SPT 06:00 | PROVIDERS: PCP Family Medicine; Referring Provider Family Medicine; Visit Provider Family Medicine | DX: M25.561 Pain in right knee (principal); M25.562 Pain in left knee | CPT/HCPCS: 97161 ==

== ENCOUNTER → 2021-05-15 13:42 | Outpatient (BNVA) | payer OTHER, SELFPAY | PROVIDERS: PCP Family Medicine; Referring Provider Nurse Practitioner; Visit Provider Podiatrist Foot & Ankle Surgery | DX: M25.571 Pain in right ankle and joints of right foot (principal) | CPT/HCPCS: 73630 ==

== ENCOUNTER 2021-05-15 14:52 | Outpatient (CLI) | payer OTHER, SELFPAY | END 2021-05-15 14:53 | disposition home or self-care (01) | LOC: SPT 14:53 | PROVIDERS: PCP Family Medicine; Visit Provider Podiatrist Foot & Ankle Surgery | DX: Z46.89 Encounter for fitting and adjustment of other specified devices (principal); S86.091D Other specified injury of right Achilles tendon, subsequent encounter; X58.XXXD Exposure to other specified factors, subsequent encounter | CPT/HCPCS: 97760; L4361 ==

== ENCOUNTER 2021-07-24 07:00 | Outpatient (CLI) | payer OTHER, SELFPAY ==
--- NOTE | 2021-07-24 07:03 | US_ITS ---
WS: [id number] INDICATION: Achilles tendon pain TECHNIQUE: Ultrasound Achilles tendon FINDINGS: Ultrasound Achilles tendon. Diffuse enlargement and heterogeneous thickening of the Opal s tendon consistent with tendinosis measure 1.7 cm in maximum AP dimension. Associated Achilles tendo n calcifications likely due to chronic injury. Intrasubstance longitudinal tear involving the ventral surface of the tendon. Distal Achilles inserti on appears intact. No visualized full-thickness tears. US/US soft tissue/extremity [id number] IMPRESSION: 1. Diffuse enlargement and heterogeneous thickening of the Achilles tendon con sistent with tendinosis 2. Intrasubstance longitudinal tear involving the ventral surface of the tendo n.
== END 2021-07-24 07:01 | disposition home or self-care (01) ==
LOC: US 07:01
PROVIDERS: PCP Family Medicine; Visit Provider Podiatrist Foot & Ankle Surgery
DX: S86.019A Strain of unspecified Achilles tendon, initial encounter (principal); M72.2 Plantar fascial fibromatosis; X58.XXXA Exposure to other specified factors, initial encounter
CPT/HCPCS: 76882

== ENCOUNTER 2021-08-04 11:34 | Inpatient (IN) | payer OTHER, MEDICARE, SELFPAY ==
[2021-08-04] VITALS (7 sets, daily range): BP systolic 91–129; BP diastolic 57–96; PULSE 105–131; RESP 17–22; TEMP 36.4–38.7; O2SAT 89–98; BMI 43.2; BMI 43.5
--- NOTE | 2021-08-04 11:39 | ECG_ITS ---
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 Measurements Intervals [place] Rate: 131 P: 71 NV: 123 QRS: 262 QRSD: 147 T: 70 QT: 379 QTc: 560 Interpretive Statements SINUS TACHYCARDIA WITH OCCASIONAL VENTRICULAR PREMATURE COMPLEXES RIGHT AXIS DEVIATION [QRS AXIS > 100] RIGHT BUNDLE BRANCH BLOCK ANTERIOR MYOCARDIAL INFARCTION , OF INDETERMINATE AGE Compared to ECG 05/24/2020 17:57:22 Ventricular premature complex(es) now present Sinus rhythm no longer present Myocardial infarct finding still present Electronically Signed On 08-05-2021 17:09:43 PRESIDENT AND CHIEF OPERATING OFFICER by Janina Stuart M.D. [id number]
--- NOTE | 2021-08-04 11:39 | XR_ITS ---
WS: [id number] PORTABLE CHEST HISTORY: dyspnea/cough COMPARISON: 06/30/2020 Single lead LEFT subclavian defibrillator remains unchanged in position. Lungs are hyperinflated. Mild interstitial thickening bilaterally. No pleural effusion or pneumothora x. Cardiac size: Heart is very slightly enlarged, similar to prior studies. Mediastinum/Aorta: Normal mediastinum. No osseous abnormality seen. XR/XR chest 1V portable [id number] IMPRESSION: Very mild interstitial thickening bilaterally is new. Differential includes mil d pneumonitis versus mild edema.
[2021-08-04 12:21] LABS: Basophils % 0.4 %; Eosinophils % 0.4 %; Hematocrit 51.4 % (42.0-52.0); Hemoglobin 16.7 g/dL (11.7-16.6); Lymphocytes # 0.6 10^3/uL (0.8-4.8); Lymphocytes % 6.2 %; Mean Corpuscular HGB Conc 32.5 g/dL (30.0-36.0); Mean Corpuscular Hemoglobin 30.8 pg (28.0-34.0); Mean Corpuscular Volume 94.7 fl (80-94); Mean Platelet Volume 10.9 fL (7.4-10.4); Monocytes # 0.6 10^3/uL (0.2-0.9); Monocytes % 6.7 %; Neutrophils # 8.14 10^3/uL (1.8-7.7); Neutrophils % 86.1 %; Nucleated Red Blood Cells % 0 %; Platelet Count 233 10^3/cmm (130-400); Red Blood Count 5.43 10^6/uL (4.1-5.3); Red Cell Distribution Width 14.7 % (12.1-15.1); White Blood Count 9.5 10^3/uL (4.0-10.0)
[2021-08-04 12:37] LABS: Alanine Aminotransferase 20 U/L (0-41); Albumin Level 4.2 g/dL (3.5-5.2); Alkaline Phosphatase 85 IU/L (40-130); Anion Gap 21.7 (5-19); Aspartate Amino Transferase 17 U/L (0-40); Blood Urea Nitrogen 15 mg/dL (6-20); Carbon Dioxide 28 mmol/L (22-29); Chloride 91 mmol/L (98-107); Globulin 3.2 g/dL (1.3-4.6); Glomerular Filtration Rate 56.9 mL/min (90-130); Glucose 272 mg/dL (65-115); Osmolality Calculated 294 mOsm/kg (285-295); Potassium 3.7 mmol/L (3.5-5.1); Sodium 137 mmol/L (136-145); Total Bilirubin 0.7 mg/dL (0.15-1.2); Total Protein 7.4 g/dL (6.6-8.7)
[2021-08-04 13:01] LABS: C Reactive Protein 72.5 mg/L (0.0-4.9); NT Pro B Type Natriuretic Pept 2306 pg/mL (0-125)
--- NOTE | 2021-08-04 13:26 | W.ED.SOB ---
HPI - SOB/Dyspnea General: Chief Complaint: Shortness of Breath/Dyspnea Stated Complaint: SOB Time Seen by Provider: 08/04/21 11:38 History of Present Illness: HPI Narrative: 56-year-old male presents emergency room complaining of shortness of breath difficulty breathing. He denies any chest pain. He has had some orthopnea. He is also reporting fever. Cough is been nonproductive. He denies any diarrhea. He has been vaccinated for COVID is not had COVID that he is aware of to this point. MD elicited complaint: shortness of breath and cough Pertinent past history: COPD Onset (ago): minute(s) Timing: constant Severity: mild Exacerbating factors: nothing Relieving factors: nothing Known history of: COPD Associated symptoms: Reports fever(s) and orthopnea; Deny abdominal pain, chest pain, nausea or vomiting Review of Systems Const: Reports: fever(s), chills and body aches; Denies: change in appetite, fatigue or malaise ENMT: Denies: throat pain, ear or mastoid pain, nasal discharge or nasal congestion Card: Reports: edema, dyspnea on exertion and orthopnea; Denies: chest pain Resp: Reports: non-productive cough; Denies: dyspnea or productive cough GI: Denies: abdominal pain, nausea, vomiting, hematemesis, coffee ground emesis, diarrhea, constipation, bloating, hematochezia or melena : Denies: flank pain, dysuria, urinary frequency or urinary urgency Skin/Breast: Denies: rash or pruritus PFSH ED PFSH: Medical History CAD (coronary artery disease) CHF (congestive heart failure) Chronic hypercapnic respiratory failure 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 2 diabetes mellitus COPD (chronic obstructive pulmonary disease) Hyperlipidemia Hypertension Hypoxia 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 dependent diabetes mellitus Ischemic cardiomyopathy Morbid obesity Obstructive sleep apnea ST elevation myocardial infarction (STEMI) of inferior wall Tobacco abuse Surgical History History of cardiac defibrillator placement History of coronary artery stent placement -hx of CAD with inferior wall [place] s/p RCA stent, LAD stent Family History Denies family history of CAD (coronary artery disease) Social History Quit status (tobacco): has quit using tobacco Year quit tobacco: 2020 - 1.5 PPD x 40 YEars Second hand smoke exposure: No Smoking risk assessment/counseling performed?: No Alcohol intake: never Desire information about alcohol rehabilitation?: No Counseling given: No Desire information about substance/drug rehabilitation?: No Counseling given: No Lives independently: Yes Household members: none Marital status: Single service: Yes Current occupational status: disabled Pets and animals: Yes Pets & animals: dog(s) History of recent travel: No Current gender identity: Male Physical Exam Const: COMMON NORMALS: no acute distress GENERAL APPEARANCE: cooperative and comfortable ORIENTATION/CONSCIOUSNESS: Yes awake, Yes oriented to person, Yes oriented to place and Yes oriented to time HENMT: COMMON NORMALS: normocephalic, atraumatic and hearing grossly normal bilaterally HEAD & SCALP: normocephalic and atraumatic Neck/C-Spine: COMMON NORMALS: no JVD Resp: AUSCULTATION: crackles, wheezes and diminished lung sounds Cardio: COMMON NORMALS: no JVD, regular rhythm and No murmurs present (Cardio) RATE: tachycardic RHYTHM: regular rhythm GI: COMMON NORMALS: Soft to palpation and No hepatosplenomegaly present AUSCULTATION: Yes normoactive bowel sounds PALPATION: Yes Soft to palpation, No Tenderness to palpation present (GI), No Guarding due to palpation present (GI) and Yes No hepatosplenomegaly present Extremity: COMMON NORMALS: normal to inspection, capillary refill normal, no clubbing, cyanosis or edema, no calf tenderness and no pedal edema Neuro: SENSORIUM/ORIENTATION: Yes oriented to person, Yes oriented to place and Yes oriented to time Skin: COMMON NORMALS: no rashes or lesions noted GENERAL SKIN EXAM: no rashes or lesions noted Course Vital Signs: Vital signs: Vital Signs Temperature 97.9 F 08/08/21 11:57 Pulse Rate 77 08/08/21 11:57 Respiratory Rate 16 08/08/21 11:57 Blood Pressure 109/77 08/08/21 11:57 Pulse Oximetry 91 08/08/21 11:57 MDM - SOB/Dyspnea MDM Narrative: Medical decision making narrative: Patient presented at 89% on room air improved with nasal cannula, along with significant tachycardia initially.. COVID negative on respiratory panel patient had positive human pneumo [place] virus, cover for secondary bacterial infections given his hypoxia and other symptoms.. He also has some mild heart failure. Exacerbation of COPD. Will require hospitalization with fever cultures started will cover with antibiotics aggressive pulmonary toilet discussed with hospitalist orders written Lab Data: Labs: Lab Results 08/04/21 08/04/21 08/04/21 12:10 12:10 12:10 WBC 9.5 10^3/uL 10^3/ uL (4.0-10.0) RBC 5.43 10^6/uL H 10 ^6/uL (4.1-5.3) Hgb 16.7 g/dL H g/dL (11.7-16.6) Hct 51.4 % % (42.0-52.0) MCV 94.7 fl H fl (80-94) MCH 30.8 pg pg (28.0-34.0) MCHC 32.5 g/dL g/dL (30.0-36.0) RDW 14.7 % % (12.1-15.1) Plt Count 233 10^3/cmm 10^3 /cmm (130-400) MPV 10.9 fL H fL (7.4-10.4) Neut % (Auto) 86.1 % % Lymph % (Auto) 6.2 % % [place] % (Auto) 6.7 % % Eos % (Auto) 0.4 % % Baso % (Auto) 0.4 % % Neut # (Auto) 8.14 10^3/uL H 10 ^3/uL (1.8-7.7) Lymph # (Auto) 0.6 10^3/uL L 10^ 3/uL (0.8-4.8) [place] # (Auto) 0.6 10^3/uL 10^3/ uL (0.2-0.9) Eos # (Auto) 0.0 10^3/uL 10^3/ uL (0.0-0.8) Baso # (Auto) 0.0 10^3/uL 10^3/ uL (0.0-0.1) Nucleated RBC % (a uto) 0 % % Nucleated RBCs # 0.0 /100WBC /100W BC Sodium 137 mmol/L mmol/L (136-145) Potassium 3.7 mmol/L mmol/L (3.5-5.1) Chloride 91 mmol/L L mmol/ L (98-107) Carbon Dioxide 28 mmol/L mmol/L (22-29) Anion Gap 21.7 H (5-19) BUN 15 mg/dL mg/dL (6-20) Creatinine 1.3 mg/dL H mg/dL (0.7-1.2) GFR Calculation 56.9 mL/min L mL/ min (90-130) Glucose 272 mg/dL H mg/dL (65-115) POC Glucose Calculated Osmolal ity 294 mOsm/kg mOsm/ kg (285-295) Lactic Acid Calcium 9.0 mg/dL mg/dL (8.5-10.5) Total Bilirubin 0.7 mg/dL mg/dL (0.15-1.2) AST 17 U/L U/L (0-40) ALT 20 U/L U/L (0-41) Alkaline Phosphata se 85 IU/L IU/L (40-130) C-Reactive Protein 72.5 mg/L H mg/L (0.0-4.9) NT-Pro-B Natriuret Pep 2306 pg/mL H pg/m L (0-125) Total Protein 7.4 g/dL g/dL (6.6-8.7) Albumin 4.2 g/dL g/dL (3.5-5.2) Globulin 3.2 g/dL g/dL (1.3-4.6) Coronavirus 229E ( PCR) SARS-CoV-2 (PCR) 08/04/21 08/04/21 08/04/21 13:33 13:48 14:44 WBC RBC Hgb Hct MCV MCH MCHC RDW Plt Count MPV Neut % (Auto) Lymph % (Auto) [place] % (Auto) Eos % (Auto) Baso % (Auto) Neut # (Auto) Lymph # (Auto) [place] # (Auto) Eos # (Auto) Baso # (Auto) Nucleated RBC % (a uto) Nucleated RBCs # Sodium Potassium Chloride Carbon Dioxide Anion Gap BUN Creatinine GFR Calculation Glucose POC Glucose 214 mg/dL H mg/dL (70-110) Calculated Osmolal ity Lactic Acid 2.3 mmol/L H mmol /L (0.5-2.2) Calcium Total Bilirubin AST ALT Alkaline Phosphata se C-Reactive Protein NT-Pro-B Natriuret Pep Total Protein Albumin Globulin Coronavirus 229E ( PCR) Not detected (NOT DETECT) SARS-CoV-2 (PCR) Not detected (NOT DETECT) Discharge Plan Discharge Patient Disposition: Admitted As Inpatient Admit Provider: Dominic Knight Clinical Impression: Community acquired pneumonia, Hypertension, CAD (coronary artery disease), CHF (congestive heart failure), Acute exacerbation of chronic obstructive airways disease, CAPRI (acute kidney injury) Condition: Stable Discharge Diet: Regular and Diabetic Discharge Activity: Resume usual activity Coding Level of Care Code ED [employer] for [employer] Exam Comprehensive
[2021-08-04] MEDS: metoprolol tartrate 1 mg/1 mL SDV 5 mL 5 MG IVP (13:28)
[2021-08-04] MEDS: sodium chloride 0.9% 500 ML 999 ML IV (13:28)
[2021-08-04] MEDS: acetaminophen 500 mg Tablet 1000 MG PO (13:50)
[2021-08-04] MEDS: azithromycin 500 MG in sodium chloride 0.9% 250 ML 250 MG IV (13:50)
[2021-08-04] MEDS: sodium chloride 0.9% 1,000 ML 999 ML IV (13:51)
[2021-08-04] MEDS: cefTRIAXone 1,000 MG in sodium chloride 0.9% (plus) 50 ML 100 MG IV (13:51)
[2021-08-04 14:33] LABS: Lactic Sepsis W/Reflex 2.3 mmol/L (0.5-2.2)
[2021-08-04 14:47] LABS: Glucose Point of Care 214 mg/dL (70-110)
[2021-08-04 15:27] LABS: Adenovirus Not Detected (NOT DETECT); Chlamydia Pneumoniae Not Detected (NOT DETECT); Coronavirus 229E,HKU1,NL63,OC4 Not Detected (NOT DETECT); Human Metapneumovirus Detected (NOT DETECT); Human Rhinovirus/Enterovirus Not Detected (NOT DETECT); Influenza A Not Detected (NOT DETECT); Influenza A H1 Not Detected (NOT DETECT); Influenza A H1-2009 Not Detected (NOT DETECT); Influenza A H3 Not Detected (NOT DETECT); Influenza B Not Detected (NOT DETECT); Mycoplasma Pneumoniae Not Detected (NOT DETECT); Parainfluenza Virus Type 1 Not Detected (NOT DETECT); Parainfluenza Virus Type 2 Not Detected (NOT DETECT); Parainfluenza Virus Type 3 Not Detected (NOT DETECT); Parainfluenza Virus Type 4 Not Detected (NOT DETECT); Respiratory Syncytial Virus A Not Detected (NOT DETECT); Respiratory Syncytial Virus B Not Detected (NOT DETECT); SARS-COV-2 Not Detected (NOT DETECT)
[2021-08-04 15:28] LABS: Human Metapneumovirus Detected (NOT DETECT); Human Rhinovirus/Enterovirus Not Detected (NOT DETECT); Results from GT
--- NOTE | 2021-08-04 15:37 | P.HP_ITS ---
Providers/Chief Complaint Primary Care Provider: Karla Ryan MD Chief Complaint: SOB History of Present Illness 56 Y O M With PMH of CAD status post PCI of RCA and LAD, ischemic cardiomyopathy A/P ICD hypertension,DLD,DM , COPD , LORI, morbid obesity, vaccinated for COVID- 19, came in with chief complaint of worsening shortness of breath, predominantly with exertion, cough with yellow phlegm, Going on for the last 2 days.He denies any chest pain, palpitation, orthopnea,PND, nausea vomiting, palpitation. Upon arrival in the ER he was worked up for above-mentioned complaint. Pertinent imaging studies: X-ray chest:Very mild interstitial thickening bilaterally. EKG: Sinus tach with PVCs, right bundle branch block. Pertinent labs: WBC 9.5, H&H 16.7/ 51 , platelet count:233 , serum sodium 137 serum potassium 3.7, BUN 15 serum creatinine 1.3, proBNP : 2306 Rapid Covid antigen negative. Patient received ceftriaxone and azithromycin in the ER. Review of Systems Const: Denies: change in appetite or diaphoresis Card: Denies: palpitations, edema, swelling of feet/ankles, orthopnea or leg pain with exertion Resp: Denies: pain on inspiration GI: Denies: abdominal pain, nausea, vomiting, diarrhea or constipation : Denies: flank pain or difficulty urinating Musc: Denies: back pain, extremity pain or extremity swelling Neuro: Denies: headache(s), difficulty walking or confusion Medications/Allergies Home Medications Medication Instructions Recorded Confirmed Last Taken Type acetaminophen 500 mg tablet 1,000 mg PO TID PRN 11/29/20 08/04/21 Unknown History albuterol sulfate 90 mcg/actuation 1 inh INHALATION QID 11/29/20 08/04/21 Unknown History aerosol inhaler aspirin 81 mg tablet,delayed 81 mg PO DAILY 11/29/20 08/04/21 08/04/21 History release atorvastatin 80 mg tablet 80 mg PO DAILY 11/29/20 08/04/21 08/03/21 History budesonide-formoterol HFA 160 2 puff INHALATION BID 11/29/20 08/04/21 Unknown History mcg-4.5 mcg/actuation aerosol inhaler cetirizine 10 mg tablet 10 mg PO DAILY PRN 11/29/20 08/04/21 Unknown History empagliflozin 25 mg tablet 25 mg PO DAILY 11/29/20 08/04/21 08/04/21 History gabapentin 600 mg tablet 600 mg PO TID 11/29/20 08/04/21 08/04/21 History insulin aspart U-100 100 unit/mL 16 unit SUBCUT TID 11/29/20 08/04/21 Unknown History (3 mL) subcutaneous pen insulin glargine 100 unit/mL (3 68 unit SUBCUT BEDTIME ml 11/29/20 08/04/21 08/03/21 History mL) subcutaneous pen ipratropium 0.5 mg-albuterol 3 mg 3 ml INHALATION QID PRN 11/29/20 08/04/21 Unknown History (2.5 mg base)/3 mL nebulization soln metformin 500 mg tablet 500 mg PO BID 11/29/20 08/04/21 08/04/21 History methocarbamol 500 mg tablet 500 mg PO BEDTIME 11/29/20 08/04/21 08/03/21 History metoprolol tartrate 25 mg tablet 25 mg PO BID 11/29/20 08/04/21 08/04/21 History nitroglycerin 0.4 mg sublingual 0.4 mg SUBLINGUAL Q5M PRN 11/29/20 08/04/21 Unknown History tablet semaglutide 1 mg/dose (2 mg/1.5 1 mg SUBCUT Q7D 11/29/20 08/04/21 07/31/21 Hi story mL) subcutaneous pen injector ticagrelor 90 mg tablet 90 mg PO BID 11/29/20 08/04/21 08/04/21 History tiotropium bromide 2.5 2 puff INHALATION DAILY 11/29/20 08/04/21 08/04/21 History mcg/actuation mist for inhalation tramadol 50 mg tablet 50 mg PO Q6H PRN 11/29/20 08/04/21 Unknown History potassium chloride 20 mEq 20 meq PO DAILY tab 03/02/21 08/04/21 08/04/21 History tablet,extended release furosemide 40 mg tablet 40 mg PO DAILY tab 03/09/21 08/04/21 08/04/21 History clobetasol 0.05 % scalp solution 1 applic TOPICAL DAILY #50 ml 06/08/21 08/04/21 Unknown Rx ketoconazole 2 % shampoo 1 applic TOPICAL .2 x weekly #120 06/08/21 08/04/21 Unknown Rx ml ketoconazole 2 % topical cream 1 applic TOPICAL BID #30 g 06/08/21 08/04/21 08/03/21 Rx triamcinolone acetonide 0.1 % 1 applic TOPICAL BID 60 Days #80 g 07/31/21 08/04/21 Unknown Rx topical cream metolazone 2.5 mg PO DAILY PRN 08/04/21 08/04/21 08/04/21 History Allergies Allergy/AdvReac Type Severity Reaction Status Date / Time Sulfa (Sulfonamide Allergy ALGY-Anaphy Verified 08/04/21 11:38 Antibiotics) laxis PFSH Acute PFSH: Medical History CAD (coronary artery disease) CHF (congestive heart failure) Chronic hypercapnic respiratory failure 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 2 diabetes mellitus COPD (chronic obstructive pulmonary disease) Hyperlipidemia Hypertension Hypoxia 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 dependent diabetes mellitus Ischemic cardiomyopathy Morbid obesity Obstructive sleep apnea ST elevation myocardial infarction (STEMI) of inferior wall Tobacco abuse Surgical History History of cardiac defibrillator placement History of coronary artery stent placement -hx of CAD with inferior wall [place] s/p RCA stent, LAD stent Family History Denies family history of CAD (coronary artery disease) Social History Quit status (tobacco): has quit using tobacco Year quit tobacco: 2020 - 1.5 PPD x 40 YEars Second hand smoke exposure: No Smoking risk assessment/counseling performed?: No Alcohol intake: never Desire information about alcohol rehabilitation?: No Counseling given: No Desire information about substance/drug rehabilitation?: No Counseling given: No Lives independently: Yes Household members: none Marital status: Single service: Yes Current occupational status: disabled Pets and animals: Yes Pets & animals: dog(s) History of recent travel: No Current gender identity: Male Vitals/I&O/Wt Last Vital Signs Temp 101.6 F H 08/04/21 11:48 Pulse 118 H 08/04/21 14:10 Resp 22 H 08/04/21 14:10 BP 110/87 08/04/21 14:10 Pulse Ox 97 08/04/21 14:10 Weight last 48 hrs Weight 117.934 kg Physical Exam Const: COMMON NORMALS: patient oriented x3 HENMT: COMMON NORMALS: normocephalic and atraumatic HEAD & SCALP: normocephalic and atraumatic Resp: OTHER: Bilateral wheezing, rhonchi present, no rales Cardio: COMMON NORMALS: S1 normal heart sound present, S2 normal heart sound present, No gallops present (Cardio), No murmurs present (Cardio), No rub (Cardio) and Peripheral pulses 2+ throughout RATE: regular rate RHYTHM: regular rhythm HEART SOUNDS: S1 normal heart sound present and S2 normal heart sound present PERIPHERAL PULSES: Peripheral pulses 2+ throughout GI: COMMON NORMALS: Normal to inspection, nondistended, normoactive bowel sounds present, Soft to palpation, non-tender, No hepatosplenomegaly present and no masses AUSCULTATION: Yes normoactive bowel sounds PALPATION: Yes Soft to palpation and Yes No hepatosplenomegaly present RECTAL EXAM: Yes deferred Extremity: COMMON NORMALS: no clubbing, cyanosis or edema and no pedal edema Neuro: COMMON NORMALS: patient oriented x3 Data : 08/04/21 12:10 08/04/21 12:10 Micro: Microbiology 08/04/21 13:51 Blood Culture - Preliminary Blood SPECIMEN COLLECTED 08/04/21 13:48 Blood Culture - Preliminary Blood SPECIMEN COLLECTED A&P Assessment and plan (1) Acute exacerbation of chronic obstructive airways disease: Status: Acute (2) Pneumonia: Status: Acute (3) CHF (congestive heart failure): Status: Acute Qualifiers: Heart failure type: systolic Heart failure chronicity: acute on chronic Qualified Code(s): I50.23 - Acute on chronic systolic (congestive) heart failure (4) Hypertension: Status: Acute Qualifiers: Hypertension type: essential hypertension Qualified Code(s): I10 - Essential (primary) hypertension (5) ICD (implantable cardioverter-defibrillator) in place: Status: Acute (6) CAD (coronary artery disease): Status: Acute Qualifiers: Coronary Disease-Associated Artery/Lesion type: [place] artery [place] vs. transplanted heart: [place] heart Associated angina: without angina Qualified Code(s): I25.10 - Atherosclerotic heart disease of [place] coronary artery without angina pectoris (7) Diabetes: Status: Acute (8) Hypertension: Status: Acute (9) CAPRI (acute kidney injury): Status: Acute Additional A&P Information 56 Y O M With PMH of CAD status post PCI of RCA and LAD, ischemic cardiomyopathy A/P ICD hypertension,DLD,DM , COPD , LORI, morbid obesity, vaccinated for COVID- 19, came in with chief complaint of worsening shortness of breath, predominantly with exertion, cough with yellow phlegm, Going on for the last 2 days.He denies any chest pain, palpitation, orthopnea,PND, nausea vomiting, palpitation. #Acute COPD exacerbation: Secondary to pneumonia: Patient presented with worsening cough, yellow sputum, Shortness of breath. Continue duo nebs, home inhalers, Medrol 40 IV twice daily, ceftriaxone , azithromycin. Mucinex, pulmonary toilet. Supplemental oxygen as needed. #Pneumonia: Patient with fever, cough, worsening shortness of breath, will repeat x-ray chest after IV hydration, currently x-ray chest is suspicious for possible pneumonia. Urine Legionella antigen, bacterial antigen panel Antibiotic as above #Coronary artery disease s/p PCI: Continue, aspirin, statin, Brilinta , metoprolol #Insulin-dependent diabetes: Continue Lantus, sliding scale insulin, carbohydrate consistent diet. Monitor fingerstick glucose #Heart failure with reduced ejection fraction: Currently compensated and patient is dry, continue to hold Lasix and metolazone. #CAPRI on CKD stage III: Likely prerenal CAPRI secondary to recent additional metolazone use. Continue gentle IV hydration. Monitor BMP Monitor intake output charting Avoid usual nephrotoxic's #CODE STATUS: Full code #DVT prophylaxis: On Lovenox Attestations Medical Necessity Statement*: Patient needs to be in hospital for management of COPD exacerbation as well as pneumonia. Anticipated length of stay greater than 2 midnightS. Coding Level of Care Code Acute [employer]worker [employer] Diagnoses Acute exacerbation of chronic obstructive airways disease J44.1 Pneumonia J18.9 CHF (congestive heart failure) I50.23 Heart failure type: systolic Heart failure chronicity: acute on chronic Hypertension I10 Hypertension type: essential hypertension ICD (implantable cardioverter-defibrillator) in place Z95.810 CAD (coronary artery disease) I25.10 Coronary Disease-Associated Artery/Lesion type: [place] artery [place] vs. transplanted heart: [place] heart Associated angina: without angina Diabetes E11.9 Hypertension I10 CAPRI (acute kidney injury) N17.9
[2021-08-04 15:43] LABS: Reflex Lactate Order REFLEX LACTIC ORDERD
[2021-08-04 17:17] LABS: Lactic Acid level (Lactate) 2.1 mmol/L (0.5-2.2)
[2021-08-04] MEDS: sodium chloride 0.9% 1,000 ML 50 ML IV (17:32)
[2021-08-04 18:08] LABS: Glucose Point of Care 230 mg/dL (70-110)
[2021-08-04] MEDS: ticagrelor 90 mg Tablet PO (18:24)
[2021-08-04] MEDS: insulin lispro 100 unit/1 mL SUBCUT (18:24)
[2021-08-04] MEDS: metoprolol tartrate 25 mg Tablet PO (18:25)
[2021-08-04] MEDS: guaiFENesin 600 mg Tablet 1200 MG PO (18:25)
[2021-08-04 20:02] LABS: Add Urine Microscopic? YES; Bilirubin Urine Neg (Negative); Blood Urine 2+ (Negative); Glucose Urine UA 4+ (Normal); Ketones Urine Negative (Negative); Leukocyte Esterase Urine Negative (Negative); Nitrate Urine Negative (Negative); Protein Urine Neg (Negative); Specific Gravity, Urine 1.005 (1.005-1.030); Urine Appearance Clear (CLEAR); Urine Color Yellow (Yellow); Urobilinogen Urine Norm (Negative); pH Urine 5 (5-7)
[2021-08-04] MEDS: ipratropium-albuterol 3 mL Neb INHALATION (20:02)
[2021-08-04 20:08] LABS: Add Urine Culture? No; Bacteria Urine TRACE /hpf; RBC Urine 0-4 /hpf (0-2); Squamous Epithelial Cell Urine 0-4 /hpf (0-5); WBC Urine 0-4 /hpf (0-5)
[2021-08-04] MEDS: gabapentin 300 mg Capsule 600 MG PO (22:41)
[2021-08-04] MEDS: insulin glargine 100 units/1 mL 50 UNIT SUBCUT (22:41)
[2021-08-04] MEDS: TRAMadol 50 mg Tablet PO (22:46)
[2021-08-05] VITALS (12 sets, daily range): BP systolic 93–127; BP diastolic 62–84; PULSE 69–987; RESP 14–19; TEMP 36.6–36.9; O2SAT 90–96
[2021-08-05] MEDS: ipratropium-albuterol 3 mL Neb INHALATION ×5 (02:37→23:13)
--- NOTE | 2021-08-05 05:30 | PC.NURSE ---
PATIENT REFUSING TO ALLOW LAB TO DRAW BLOOD THIS MORNING.
[2021-08-05] MEDS: atorvastatin 40 mg Tablet 80 MG PO (07:58)
[2021-08-05] MEDS: metoprolol tartrate 25 mg Tablet PO ×2 (07:58→17:01)
[2021-08-05] MEDS: gabapentin 300 mg Capsule 600 MG PO ×3 (07:59→20:37)
[2021-08-05] MEDS: guaiFENesin 600 mg Tablet 1200 MG PO ×2 (07:59→17:01)
[2021-08-05] MEDS: ticagrelor 90 mg Tablet PO ×2 (07:59→17:01)
[2021-08-05] MEDS: aspirin 81 mg EC Tablet PO (07:59)
[2021-08-05 08:11] LABS: Glucose Point of Care 191 mg/dL (70-110)
[2021-08-05 08:11] LABS: Glucose Point of Care 251 mg/dL (70-110)
[2021-08-05] MEDS: insulin lispro 100 unit/1 mL SUBCUT ×3 (08:47→17:00)
[2021-08-05] MEDS: TRAMadol 50 mg Tablet PO ×2 (08:48→15:33)
[2021-08-05 10:18] LABS: Basophils % 0.2 %; Hematocrit 48.5 % (42.0-52.0); Hemoglobin 16.1 g/dL (11.7-16.6); Lymphocytes # 0.4 10^3/uL (0.8-4.8); Lymphocytes % 5.1 %; Mean Corpuscular HGB Conc 33.2 g/dL (30.0-36.0); Mean Corpuscular Hemoglobin 30.8 pg (28.0-34.0); Mean Corpuscular Volume 92.7 fl (80-94); Monocytes # 0.1 10^3/uL (0.2-0.9); Monocytes % 1.5 %; Neutrophils # 7.96 10^3/uL (1.8-7.7); Nucleated Red Blood Cells % 0 %; Platelet Count 212 10^3/cmm (130-400); Red Blood Count 5.23 10^6/uL (4.1-5.3); Red Cell Distribution Width 14.3 % (12.1-15.1); White Blood Count 8.6 10^3/uL (4.0-10.0)
[2021-08-05 10:40] LABS: Alanine Aminotransferase 17 U/L (0-41); Albumin Level 3.9 g/dL (3.5-5.2); Alkaline Phosphatase 74 IU/L (40-130); Anion Gap 23.8 (5-19); Aspartate Amino Transferase 17 U/L (0-40); Blood Urea Nitrogen 25 mg/dL (6-20); Calcium 8.6 mg/dL (8.5-10.5); Carbon Dioxide 22 mmol/L (22-29); Chloride 93 mmol/L (98-107); Globulin 3.4 g/dL (1.3-4.6); Glomerular Filtration Rate 62.4 mL/min (90-130); Glucose 307 mg/dL (65-115); Osmolality Calculated 296 mOsm/kg (285-295); Potassium 3.8 mmol/L (3.5-5.1); Sodium 135 mmol/L (136-145); Total Bilirubin 0.5 mg/dL (0.15-1.2); Total Protein 7.3 g/dL (6.6-8.7)
[2021-08-05 10:46] LABS: Procalcitonin 0.31 ng/mL (0-0.5)
[2021-08-05 11:19] LABS: Glucose Point of Care 308 mg/dL (70-110)
--- NOTE | 2021-08-05 11:31 | PC.SOCIAL ---
1 of 2 Blood cultures positive for gram + cocci in clusters. Notified Dr Knight. He will review. [facility].
--- NOTE | 2021-08-05 12:18 | PC.PHAR ---
Pharmacokinetic dosing service Date: 08/05/21 Time: 1217 Objective: Patient: Param Tejada Floor: 260-1 Age: 56 yo Serum creatinine: 1.2 mg/dL Height: 65.0 Inches Weight (kg): 118.388 Diagnosis: Relevant medical/social history: Cultures and sensitivities: Other labs: Assessment: IBW (kg): 61.50 Dosing wt(kg): 118.388 Estimated Creatinine clearance (ml/min): 59.1 CRCL method: Cockcroft and Gault using ibw(default). Drug selected: Vancomycin Loading dose (mg): 0 Vd (liters): 106.5 (factor used: 0.9 L/kg) Cullen (hr-1): 0.053 Half life (hrs): 13.08 Recommended dose: 1500 mg Interval: 12 hrs Infusion time (hrs): 1.5 Predicted peak (mcg/mL): 28.8 Predicted trough (mcg/mL): 16.51 Total body weight is being used for vancomycin dosing. Renal function is stable [ ] /unstable [ ] Recommendations: Give Vancomycin 1500 mg q 12 hrs with an expected Cpeak of 28.8 mcg/ml and an expected Ctrough of 16.51 mcg/ml Renal dosing of other antibiotics (review renal dosing of other medications and list guidelines here): Thank you for the consult, will continue to follow. Signature: Laure Matos [facility]
[2021-08-05] MEDS: vancomycin 1,500 MG/300 ML PIGGYBACK 200 MG IV (12:53)
[2021-08-05] MEDS: cefTRIAXone 1,000 MG in sodium chloride 0.9% (plus) 50 ML 100 MG IV (15:27)
[2021-08-05] MEDS: azithromycin 500 MG in sodium chloride 0.9% 250 ML 250 MG IV (16:08)
[2021-08-05 16:55] LABS: Glucose Point of Care 282 mg/dL (70-110)
--- NOTE | 2021-08-05 18:14 | PM.PN ---
Subjective Subjective: Interval history: Patient was seen and examined this morning, says his shortness of breath has improved, but still not at its baseline. His other vitals and labs have been reviewed. Medications: Reviewed: Yes Vitals/I&O/Wt Last Vital Signs Temp 97.8 F 08/05/21 15:36 Pulse 75 08/05/21 15:36 Resp 18 08/05/21 15:36 BP 120/84 08/05/21 15:36 Pulse Ox 95 08/05/21 15:36 08/05/21 08/05/21 08/05/21 06:59 14:59 22:59 Intake Total 780 / 780 300 / 1080 Output Total 775 / 775 475 / 1250 Balance 5 / 5 -175 / -170 Weight last 48 hrs Weight 118.388 kg Weight 118.705 kg Weight 117.934 kg Physical Exam Const: COMMON NORMALS: patient oriented x3 HENMT: COMMON NORMALS: normocephalic and atraumatic HEAD & SCALP: normocephalic and atraumatic Resp: OTHER: Bilateral wheezing, rhonchi present, no rales Cardio: COMMON NORMALS: S1 normal heart sound present, S2 normal heart sound present, No gallops present (Cardio), No murmurs present (Cardio), No rub (Cardio) and Peripheral pulses 2+ throughout HEART SOUNDS: S1 normal heart sound present and S2 normal heart sound present PERIPHERAL PULSES: Peripheral pulses 2+ throughout GI: COMMON NORMALS: Normal to inspection, nondistended, normoactive bowel sounds present, Soft to palpation, non-tender, No hepatosplenomegaly present and no masses AUSCULTATION: Yes normoactive bowel sounds PALPATION: Yes Soft to palpation and Yes No hepatosplenomegaly present RECTAL EXAM: Yes deferred Extremity: COMMON NORMALS: no clubbing, cyanosis or edema and no pedal edema Neuro: COMMON NORMALS: patient oriented x3 Data : 08/05/21 10:10 08/05/21 10:10 Micro: Microbiology 08/04/21 13:51 Blood Culture - Preliminary Blood NEGATIVE TO DATE 08/04/21 13:48 Blood Culture - Preliminary Blood Gram positive cocci A&P Assessment and plan (1) Acute exacerbation of chronic obstructive airways disease: Status: Acute (2) Pneumonia: Status: Acute (3) CHF (congestive heart failure): Status: Acute Qualifiers: Heart failure type: systolic Heart failure chronicity: acute on chronic Qualified Code(s): I50.23 - Acute on chronic systolic (congestive) heart failure (4) Hypertension: Status: Acute Qualifiers: Hypertension type: essential hypertension Qualified Code(s): I10 - Essential (primary) hypertension (5) ICD (implantable cardioverter-defibrillator) in place: Status: Acute (6) CAD (coronary artery disease): Status: Acute Qualifiers: Coronary Disease-Associated Artery/Lesion type: [place] artery [place] vs. transplanted heart: [place] heart Associated angina: without angina Qualified Code(s): I25.10 - Atherosclerotic heart disease of [place] coronary artery without angina pectoris (7) Diabetes: Status: Acute (8) CAPRI (acute kidney injury): Status: Acute Additional A&P Information 56 Y O M With PMH of CAD status post PCI of RCA and LAD, ischemic cardiomyopathy A/P ICD hypertension,DLD,DM , COPD , LORI, morbid obesity, vaccinated for COVID-19, came in with chief complaint of worsening shortness of breath, predominantly with exertion, cough with yellow phlegm, Going on for the last 2 days.He denies any chest pain, palpitation, orthopnea,PND, nausea vomiting, palpitation. #Acute COPD exacerbation: Secondary to pneumonia: Patient presented with worsening cough, yellow sputum, Shortness of breath. Continue duo nebs, home inhalers, Medrol 40 IV twice daily, ceftriaxone , azithromycin. Mucinex, pulmonary toilet. Supplemental oxygen as needed. #Pneumonia: Patient with fever, cough, worsening shortness of breath, will repeat x-ray chest after IV hydration, currently x-ray chest is suspicious for possible pneumonia. Urine Legionella antigen, bacterial antigen panel Antibiotic as above #GPC bacteremia: Blood culture has grown GPC in 1 out of 2 bottles. Likely contamination. Repeat blood culture in a.m. Has been started on vancomycin #Coronary artery disease s/p PCI: Continue, aspirin, statin, Brilinta , metoprolol #Insulin-dependent diabetes: Continue Lantus, sliding scale insulin, carbohydrate consistent diet. Monitor fingerstick glucose #Heart failure with reduced ejection fraction: Currently compensated and patient is dry, continue to hold Lasix and metolazone. #CAPRI on CKD stage III: Likely prerenal CAPRI secondary to recent additional metolazone use. Continue gentle IV hydration. Monitor BMP Monitor intake output charting Avoid usual nephrotoxic's #CODE STATUS: Full code #DVT prophylaxis: On Lovenox Attestations Medical Necessity Statement*: Patient needs to be in hospital for management of COPD exacerbation. 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 transplanted heart: [place] heart Associated angina: without angina Diabetes E11.9 CAPRI (acute kidney injury) N17.9
[2021-08-05 20:05] LABS: Glucose Point of Care 272 mg/dL (70-110)
[2021-08-05] MEDS: cyclobenzaprine 10 mg Tablet 5 MG PO (20:37)
[2021-08-05] MEDS: insulin glargine 100 units/1 mL 70 UNIT SUBCUT (20:38)
[2021-08-06] VITALS (16 sets, daily range): BP systolic 95–123; BP diastolic 62–82; PULSE 65–88; RESP 16–20; TEMP 36.5–36.7; O2SAT 94–97
[2021-08-06] MEDS: vancomycin 1,500 MG/300 ML PIGGYBACK 200 MG IV ×2 (00:31→13:33)
[2021-08-06] MEDS: ipratropium-albuterol 3 mL Neb INHALATION ×6 (03:21→23:37)
[2021-08-06 06:30] LABS: Glucose Point of Care 254 mg/dL (70-110)
--- NOTE | 2021-08-06 06:48 | PC.NURSE ---
PATIENT REFUSED TO ALLOW BLOOD DRAW FOR MORNING LAB.
[2021-08-06] MEDS: gabapentin 300 mg Capsule 600 MG PO ×3 (07:50→20:51)
[2021-08-06] MEDS: atorvastatin 40 mg Tablet 80 MG PO (07:51)
[2021-08-06] MEDS: ticagrelor 90 mg Tablet PO ×2 (07:51→17:11)
[2021-08-06] MEDS: aspirin 81 mg EC Tablet PO (07:51)
[2021-08-06] MEDS: insulin lispro 100 unit/1 mL SUBCUT ×4 (07:51→20:53)
[2021-08-06] MEDS: guaiFENesin 600 mg Tablet 1200 MG PO ×2 (07:51→17:11)
[2021-08-06] MEDS: metoprolol tartrate 25 mg Tablet PO ×2 (08:18→17:11)
[2021-08-06 12:03] LABS: Glucose Point of Care 363 mg/dL (70-110)
[2021-08-06 13:10] LABS: Basophils % 0.1 %; Eosinophils % 0.1 %; Hematocrit 49.7 % (42.0-52.0); Hemoglobin 16.5 g/dL (11.7-16.6); Lymphocytes # 0.6 10^3/uL (0.8-4.8); Mean Corpuscular HGB Conc 33.2 g/dL (30.0-36.0); Mean Corpuscular Hemoglobin 31.5 pg (28.0-34.0); Mean Platelet Volume 11.5 fL (7.4-10.4); Monocytes # 0.7 10^3/uL (0.2-0.9); Monocytes % 4.6 %; Neutrophils # 14.55 10^3/uL (1.8-7.7); Neutrophils % 90.6 %; Nucleated Red Blood Cells % 0 %; Platelet Count 225 10^3/cmm (130-400); Red Blood Count 5.23 10^6/uL (4.1-5.3); Red Cell Distribution Width 14.5 % (12.1-15.1); White Blood Count 16.1 10^3/uL (4.0-10.0)
[2021-08-06 13:22] LABS: Vancomycin Trough 18.4 ug/mL (10-15)
[2021-08-06] MEDS: TRAMadol 50 mg Tablet PO ×2 (13:22→19:36)
[2021-08-06 13:28] LABS: Calcium 8.7 mg/dL (8.5-10.5)
[2021-08-06 13:39] LABS: Anion Gap 23.3 (5-19); Carbon Dioxide 23 mmol/L (22-29); Chloride 93 mmol/L (98-107); Potassium 4.3 mmol/L (3.5-5.1); Slide Review Slide Review Perform; Sodium 135 mmol/L (136-145)
[2021-08-06 13:40] LABS: Blood Urea Nitrogen 30 mg/dL (6-20); Glucose 317 mg/dL (65-115); Osmolality Calculated 298 mOsm/kg (285-295)
[2021-08-06] MEDS: azithromycin 500 MG in sodium chloride 0.9% 250 ML 250 MG IV (15:18)
[2021-08-06 16:38] LABS: Glucose Point of Care 293 mg/dL (70-110)
[2021-08-06] MEDS: cefTRIAXone 1,000 MG in sodium chloride 0.9% (plus) 50 ML 100 MG IV (17:11)
--- NOTE | 2021-08-06 18:28 | P.PN_ITS ---
Subjective Subjective: Interval history: Patient was seen and examined this morning, says his shortness of breath has improved, but still get winded with exertion. Blood culture has grown coagulase-negative staph in 1 out of 2 bottles, likely contaminant. Vancomycin has been discontinued. Continue to have good urine output. His other vitals and labs have been reviewed Medications: Reviewed: Yes Vitals/I&O/Wt Last Vital Signs Temp 97.7 F 08/06/21 16:00 Pulse 81 08/06/21 16:00 Resp 17 08/06/21 16:00 BP 102/71 08/06/21 16:00 Pulse Ox 96 08/06/21 16:00 08/06/21 08/06/21 08/06/21 06:59 14:59 22:59 Intake Total 400 / 2960 1085 / 1085 730 / 1815 Output Total 550 / 2300 775 / 775 550 / 1325 Balance -150 / 660 310 / 310 180 / 490 Weight last 48 hrs Weight 118.887 kg Weight 118.388 kg Physical Exam Const: COMMON NORMALS: patient oriented x3 HENMT: COMMON NORMALS: normocephalic and atraumatic HEAD & SCALP: normocephalic and atraumatic Resp: OTHER: Bilateral wheezing, rhonchi present, no rales Cardio: COMMON NORMALS: S1 normal heart sound present, S2 normal heart sound present, No gallops present (Cardio), No murmurs present (Cardio), No rub (Cardio) and Peripheral pulses 2+ throughout HEART SOUNDS: S1 normal heart sound present and S2 normal heart sound present PERIPHERAL PULSES: Peripheral pulses 2+ throughout GI: COMMON NORMALS: Normal to inspection, nondistended, normoactive bowel sounds present, Soft to palpation, non-tender, No hepatosplenomegaly present and no masses AUSCULTATION: Yes normoactive bowel sounds PALPATION: Yes Soft to palpation and Yes No hepatosplenomegaly present RECTAL EXAM: Yes deferred Extremity: COMMON NORMALS: no clubbing, cyanosis or edema and no pedal edema Neuro: COMMON NORMALS: patient oriented x3 Data : 08/06/21 12:29 08/06/21 12:29 Micro: Microbiology 08/06/21 15:22 Blood Culture - Preliminary Blood SPECIMEN COLLECTED 08/06/21 12:29 Blood Culture - Preliminary Blood SPECIMEN COLLECTED 08/04/21 13:48 Blood Culture - Preliminary Blood Coagulase negativ staphylococc 08/04/21 13:51 Blood Culture - Preliminary Blood NEGATIVE TO DATE A&P Assessment and plan (1) Acute exacerbation of chronic obstructive airways disease: Status: Acute (2) Pneumonia: Status: Acute (3) CHF (congestive heart failure): Status: Acute Qualifiers: Heart failure type: systolic Heart failure chronicity: acute on chronic Qualified Code(s): I50.23 - Acute on chronic systolic (congestive) heart failure (4) Hypertension: Status: Acute Qualifiers: Hypertension type: essential hypertension Qualified Code(s): I10 - Essential (primary) hypertension (5) ICD (implantable cardioverter-defibrillator) in place: Status: Acute (6) CAD (coronary artery disease): Status: Acute Qualifiers: Coronary Disease-Associated Artery/Lesion type: [place] artery [place] vs. transplanted heart: [place] heart Associated angina: without angina Qualified Code(s): I25.10 - Atherosclerotic heart disease of [place] coronary artery without angina pectoris (7) Diabetes: Status: Acute (8) CAPRI (acute kidney injury): Status: Acute Additional A&P Information 56 Y O M With PMH of CAD status post PCI of RCA and LAD, ischemic cardiomyopathy A/P ICD hypertension,DLD,DM , COPD , LORI, morbid obesity, vaccinated for COVID- 19, came in with chief complaint of worsening shortness of breath, predominantly with exertion, cough with yellow phlegm, Going on for the last 2 days.He denies any chest pain, palpitation, orthopnea,PND, nausea vomiting, palpitation. #Acute COPD exacerbation: Secondary to pneumonia: Patient presented with worsening cough, yellow sputum, Shortness of breath. Continue duo nebs, home inhalers, Medrol 40 IV twice daily, ceftriaxone , azithromycin. Mucinex, pulmonary toilet. Supplemental oxygen as needed. #Pneumonia: Patient with fever, cough, worsening shortness of breath, will repeat x-ray chest after IV hydration, currently x-ray chest is suspicious for possible pneumonia. Urine Legionella antigen, bacterial antigen panel Antibiotic as above #GPC bacteremia: Blood culture has grown coagulase-negative staph in 1 out of 2 bottles, likely contaminant. Repeat blood culture in a.m. Vancomycin has been discontinued. #Coronary artery disease s/p PCI: Continue, aspirin, statin, Brilinta , metop rolol #Insulin-dependent diabetes: Continue Lantus, sliding scale insulin, carbohydrate consistent diet. Monitor fingerstick glucose #Heart failure with reduced ejection fraction: Initially Lasix was kept on hold as the patient was clinically dry. Resume Lasix 40 p.o. daily from a.m. #CAPRI on CKD stage III: Likely prerenal CAPRI secondary to recent additional metolazone use.: Resolved was on gentle IV hydration. Monitor BMP Monitor intake output charting Avoid usual nephrotoxic's #CODE STATUS: Full code #DVT prophylaxis: On Lovenox Attestations Medical Necessity Statement*: Patient is to be in hospital for management of COPD exacerbation, pneumonia . 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 transplanted heart: [place] heart Associated angina: without angina Diabetes E11.9 CAPRI (acute kidney injury) N17.9
[2021-08-06 20:35] LABS: Glucose Point of Care 212 mg/dL (70-110)
[2021-08-06] MEDS: cyclobenzaprine 10 mg Tablet 5 MG PO (20:50)
[2021-08-06] MEDS: insulin glargine 100 units/1 mL 80 UNIT SUBCUT (21:05)
[2021-08-07] VITALS (17 sets, daily range): BP systolic 104–133; BP diastolic 62–88; PULSE 70–87; RESP 16–20; TEMP 36.4–37; O2SAT 9–98
[2021-08-07] MEDS: ipratropium-albuterol 3 mL Neb INHALATION ×6 (03:14→23:42)
--- NOTE | 2021-08-07 05:34 | PC.NURSE ---
SHIFT SUMMARY Has rested well. Does not lilke to be woke up. Try to group VS with meds/txs to limit waking pt. Received po Tramadol X1 for c/o generalized pain. Refuses to wear tele monitor. Has SOB with exertion and has wheezes noted that are audible at times. Continues to receive IV SolumedrolO2 in place at 2l per NC. Occ prod couugh
[2021-08-07 06:30] LABS: Glucose Point of Care 225 mg/dL (70-110)
[2021-08-07] MEDS: guaiFENesin 600 mg Tablet 1200 MG PO ×2 (07:49→17:27)
[2021-08-07] MEDS: aspirin 81 mg EC Tablet PO (07:50)
[2021-08-07] MEDS: ticagrelor 90 mg Tablet PO ×2 (07:50→17:27)
[2021-08-07] MEDS: TRAMadol 50 mg Tablet PO ×3 (07:50→21:14)
[2021-08-07] MEDS: atorvastatin 40 mg Tablet 80 MG PO (07:50)
[2021-08-07] MEDS: insulin lispro 100 unit/1 mL SUBCUT ×4 (07:51→21:17)
[2021-08-07] MEDS: gabapentin 300 mg Capsule 600 MG PO ×3 (07:51→21:14)
[2021-08-07] MEDS: FUROsemide 40 mg Tablet PO (07:51)
[2021-08-07] MEDS: metoprolol tartrate 25 mg Tablet PO ×2 (07:51→17:27)
[2021-08-07 10:38] LABS: Basophils % 0.1 %; Hematocrit 46.7 % (42.0-52.0); Hemoglobin 15.3 g/dL (11.7-16.6); Lymphocytes # 0.3 10^3/uL (0.8-4.8); Lymphocytes % 2.8 %; Mean Corpuscular HGB Conc 32.8 g/dL (30.0-36.0); Mean Corpuscular Hemoglobin 31.2 pg (28.0-34.0); Mean Corpuscular Volume 95.3 fl (80-94); Mean Platelet Volume 11.2 fL (7.4-10.4); Monocytes # 0.3 10^3/uL (0.2-0.9); Monocytes % 2.3 %; Neutrophils # 10.85 10^3/uL (1.8-7.7); Neutrophils % 94.3 %; Nucleated Red Blood Cells % 0 %; Platelet Count 243 10^3/cmm (130-400); Red Cell Distribution Width 14.6 % (12.1-15.1); White Blood Count 11.5 10^3/uL (4.0-10.0)
[2021-08-07 11:07] LABS: Anion Gap 16.9 (5-19); Blood Urea Nitrogen 28 mg/dL (6-20); Calcium 8.6 mg/dL (8.5-10.5); Carbon Dioxide 25 mmol/L (22-29); Chloride 97 mmol/L (98-107); Glucose 406 mg/dL (65-115); Osmolality Calculated 303 mOsm/kg (285-295); Potassium 3.9 mmol/L (3.5-5.1); Sodium 135 mmol/L (136-145)
--- NOTE | 2021-08-07 11:36 | PC.SOCIAL ---
IMM Update Pg. 2 of IMM updated and reviewed with patient who verbalized understanding. Copy provided.
[2021-08-07 12:02] LABS: Glucose Point of Care 328 mg/dL (70-110)
[2021-08-07] MEDS: acetaminophen 325 mg Tablet 650 MG PO (12:34)
[2021-08-07] MEDS: cefTRIAXone 1,000 MG in sodium chloride 0.9% (plus) 50 ML 100 MG IV (14:54)
[2021-08-07] MEDS: azithromycin 500 MG in sodium chloride 0.9% 250 ML 250 MG IV (15:27)
[2021-08-07 18:12] LABS: Glucose Point of Care 214 mg/dL (70-110)
--- NOTE | 2021-08-07 18:25 | PM.PN ---
Vitals/I&O/Wt Last Vital Signs Temp 97.8 F 08/07/21 15:30 Pulse 73 08/07/21 15:46 Resp 18 08/07/21 15:42 BP 117/80 08/07/21 15:30 Pulse Ox 92 08/07/21 15:42 08/07/21 08/07/21 08/07/21 06:59 14:59 22:59 Intake Total 240 / 2345 840 / 840 300 / 1140 Output Total 1300 / 1300 Balance 240 / 1020 -460 / -460 300 / -160 Weight last 48 hrs Weight 118.025 kg Weight 118.887 kg Physical Exam Const: COMMON NORMALS: no acute distress and patient oriented x3 Resp: COMMON NORMALS: normal respiratory effort, No retractions, No use of accessory muscles and clear to auscultation bilaterally AUSCULTATION: clear to auscultation bilaterally Cardio: COMMON NORMALS: regular rate, regular rhythm, S1 normal heart sound present and S2 normal heart sound present RATE: regular rate RHYTHM: regular rhythm HEART SOUNDS: S1 normal heart sound present and S2 normal heart sound present GI: COMMON NORMALS: Normal to inspection, nondistended, normoactive bowel sounds present, Soft to palpation and non-tender PALPATION: Yes Soft to palpation Extremity: COMMON NORMALS: no pedal edema Neuro: COMMON NORMALS: patient oriented x3 Psych: COMMON NORMALS: mental status grossly normal Data : 08/07/21 10:10 08/07/21 10:10 Micro: Microbiology 08/07/21 12:38 Gram Stain - Final Sputum - Expectorated Sputum 08/06/21 15:22 Blood Culture - Preliminary Blood NEGATIVE TO DATE 08/06/21 12:29 Blood Culture - Preliminary Blood NEGATIVE TO DATE 08/07/21 10:04 Legionella Urinary Antigen - Final Urine,Voided Bacterial Antigens - Final A&P Assessment and plan (1) Acute exacerbation of chronic obstructive airways disease: Status: Acute (2) Pneumonia: Status: Acute (3) CHF (congestive heart failure): Status: Acute Qualifiers: Heart failure type: systolic Heart failure chronicity: acute on chronic Qualified Code(s): I50.23 - Acute on chronic systolic (congestive) heart failure (4) Hypertension: Status: Acute Qualifiers: Hypertension type: essential hypertension Qualified Code(s): I10 - Essential (primary) hypertension (5) ICD (implantable cardioverter-defibrillator) in place: Status: Acute (6) CAD (coronary artery disease): Status: Acute Qualifiers: Coronary Disease-Associated Artery/Lesion type: [place] artery [place] vs. transplanted heart: [place] heart Associated angina: without angina Qualified Code(s): I25.10 - Atherosclerotic heart disease of [place] coronary artery without angina pectoris (7) Diabetes: Status: Acute (8) CAPRI (acute kidney injury): Status: Acute Additional A&P Information 56 Y O M With PMH of CAD status post PCI of RCA and LAD, ischemic cardiomyopathy A/P ICD hypertension,DLD,DM , COPD , LORI, morbid obesity, vaccinated for COVID-19, came in with chief complaint of worsening shortness of breath, predominantly with exertion, cough with yellow phlegm, Going on for the last 2 days.He denies any chest pain, palpitation, orthopnea,PND, nausea vomiting, palpitation. #Acute COPD exacerbation: Secondary to pneumonia: Patient presented with worsening cough, yellow sputum, Shortness of breath still having some wheezing Continue duo nebs, home inhalers, Medrol 40 IV twice daily, ceftriaxone , azithromycin. Mucinex, pulmonary toilet. Supplemental oxygen as needed. #Pneumonia: Patient with fever, cough, worsening shortness of breath, will repeat x-ray chest after IV hydration, currently x-ray chest is suspicious for possible pneumonia. Urine Legionella antigen, bacterial antigen panel Antibiotic as above #GPC bacteremia: Blood culture has grown coagulase-negative staph in 1 out of 2 bottles, likely contaminant. Repeat blood culture negative Vancomycin has been discontinued. #Coronary artery disease s/p PCI: Continue, aspirin, statin, Brilinta , metoprolol, lasix #Insulin-dependent diabetes: Continue Lantus, sliding scale insulin, carbohydrate consistent diet. Monitor fingerstick glucose #Heart failure with reduced ejection fraction: Initially Lasix was kept on hold as the patient was clinically dry. Resume Lasix 40 p.o. daily from a.m. 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 transplanted heart: [place] heart Associated angina: without angina Diabetes E11.9 CAPRI (acute kidney injury) N17.9
[2021-08-07] MEDS: cyclobenzaprine 10 mg Tablet 5 MG PO (21:14)
[2021-08-07] MEDS: insulin glargine 100 units/1 mL 80 UNIT SUBCUT (21:16)
[2021-08-07 21:33] LABS: Glucose Point of Care 170 mg/dL (70-110)
[2021-08-07 21:33] LABS: Glucose Point of Care 236 mg/dL (70-110)
[2021-08-08] VITALS (10 sets, daily range): BP systolic 109–122; BP diastolic 75–89; PULSE 72–89; RESP 16–20; TEMP 36.3–36.6; O2SAT 91–96
[2021-08-08] MEDS: ipratropium-albuterol 3 mL Neb INHALATION ×3 (03:07→11:37)
[2021-08-08] MEDS: acetaminophen 325 mg Tablet 650 MG PO (05:06)
--- NOTE | 2021-08-08 05:16 | PC.NURSE ---
SHIFT SUMMARY Has rested well tonight. Still does not like to be woke up for anything but otherwise is pleasant and talkative. Says he is going home today. Some SOB with exertion and continues with some wheezing but says feels improved. Has been on room air all shift. c/o generalized pain and received po Tramadol and Tylenol this shift.
[2021-08-08 06:50] LABS: Glucose Point of Care 213 mg/dL (70-110)
[2021-08-08 07:12] LABS: Basophils % 0.1 %; Hematocrit 45.1 % (42.0-52.0); Hemoglobin 14.9 g/dL (11.7-16.6); Lymphocytes # 0.5 10^3/uL (0.8-4.8); Lymphocytes % 5.5 %; Mean Corpuscular Hemoglobin 30.8 pg (28.0-34.0); Mean Corpuscular Volume 93.4 fl (80-94); Mean Platelet Volume 11.4 fL (7.4-10.4); Monocytes # 0.4 10^3/uL (0.2-0.9); Monocytes % 4.7 %; Nucleated Red Blood Cells % 0 %; Platelet Count 249 10^3/cmm (130-400); Red Blood Count 4.83 10^6/uL (4.1-5.3); Red Cell Distribution Width 14.6 % (12.1-15.1); White Blood Count 9.1 10^3/uL (4.0-10.0)
[2021-08-08 07:35] LABS: Alanine Aminotransferase 18 U/L (0-41); Albumin Level 3.8 g/dL (3.5-5.2); Alkaline Phosphatase 57 IU/L (40-130); Aspartate Amino Transferase 15 U/L (0-40); Blood Urea Nitrogen 30 mg/dL (6-20); C Reactive Protein 13.8 mg/L (0.0-4.9); Calcium 8.5 mg/dL (8.5-10.5); Carbon Dioxide 27 mmol/L (22-29); Chloride 98 mmol/L (98-107); Glomerular Filtration Rate 99.6 mL/min (90-130); Glucose 205 mg/dL (65-115); Magnesium 2.1 mg/dL (1.7-2.3); Osmolality Calculated 298 mOsm/kg (285-295); Phosphorus 2.3 mg/dL (2.5-4.5); Sodium 138 mmol/L (136-145); Total Bilirubin 0.2 mg/dL (0.15-1.2); Total Protein 6.8 g/dL (6.6-8.7)
[2021-08-08 07:41] LABS: Anion Gap 17.1 (5-19); Potassium 4.1 mmol/L (3.5-5.1)
[2021-08-08 07:43] LABS: Procalcitonin 0.08 ng/mL (0-0.5)
[2021-08-08] MEDS: gabapentin 300 mg Capsule 600 MG PO (08:08)
[2021-08-08] MEDS: FUROsemide 40 mg Tablet PO (08:08)
[2021-08-08] MEDS: ticagrelor 90 mg Tablet PO (08:08)
[2021-08-08] MEDS: guaiFENesin 600 mg Tablet 1200 MG PO (08:08)
[2021-08-08] MEDS: aspirin 81 mg EC Tablet PO (08:08)
[2021-08-08] MEDS: metoprolol tartrate 25 mg Tablet PO (08:08)
[2021-08-08] MEDS: atorvastatin 40 mg Tablet 80 MG PO (08:08)
[2021-08-08] MEDS: insulin lispro 100 unit/1 mL SUBCUT ×2 (08:09→12:04)
[2021-08-08 11:57] LABS: Glucose Point of Care 297 mg/dL (70-110)
--- NOTE | 2021-08-08 12:45 | P.DS_ITS ---
Discharge Providers Date of Admission: 08/04/21 15:08 Date of Discharge: August 08, 2021 Attending Provider at Admission: Dominic Knight MD Attending Provider at Discharge: Willi Mcgraw MD Primary Care Provider: Karla Ryan MD Diagnoses at Discharge Discharge Diagnosis (1) Acute exacerbation of chronic obstructive airways disease: Status: Acute (2) Pneumonia: Status: Acute (3) CHF (congestive heart failure): Status: Acute Qualifiers: Heart failure type: systolic Heart failure chronicity: acute on chronic Qualified Code(s): I50.23 - Acute on chronic systolic (congestive) heart failure (4) Hypertension: Status: Acute Qualifiers: Hypertension type: essential hypertension Qualified Code(s): I10 - Essential (primary) hypertension (5) ICD (implantable cardioverter-defibrillator) in place: Status: Acute (6) CAD (coronary artery disease): Status: Acute Qualifiers: Coronary Disease-Associated Artery/Lesion type: false pass artery Tribe vs. transplanted heart: false pass heart Associated angina: without angina Qualified Code(s): I25.10 - Atherosclerotic heart disease of false pass coronary artery without angina pectoris (7) Diabetes: Status: Acute (8) CAPRI (acute kidney injury): Status: Acute Reason for Visit Reason for Visit: SOB Hospital Course Hospital Course 56 Y O M With PMH of CAD status post PCI of RCA and LAD, ischemic cardiomyopathy A/P ICD hypertension,DLD,DM , COPD , LORI, morbid obesity, vaccinated for COVID- 19, came in with chief complaint of worsening shortness of breath, predominantly with exertion, cough with yellow phlegm Patient was admitted to [facility] for COPD exacerbation, with pneumonia, treated with steroid therapy, inhaler therapy, broad-spectrum antibiotic therapy, and clinically monitored. Patient clinically improved, symptomatology improved, he was weaned down to room air. Discharged on a prednisone burst with doxycycline for antibiotic coverage. Follow-up with primary care provider in 1 week Physical Exam Const: COMMON NORMALS: no acute distress and patient oriented x3 Resp: COMMON NORMALS: normal respiratory effort, No retractions, No use of accessory muscles and clear to auscultation bilaterally AUSCULTATION: clear to auscultation bilaterally Cardio: COMMON NORMALS: regular rate, regular rhythm, S1 normal heart sound present and S2 normal heart sound present RATE: regular rate RHYTHM: regular rhythm HEART SOUNDS: S1 normal heart sound present and S2 normal heart sound present GI: COMMON NORMALS: Normal to inspection, nondistended, normoactive bowel sounds present, Soft to palpation and non-tender PALPATION: Yes Soft to palpation Extremity: COMMON NORMALS: no pedal edema Neuro: COMMON NORMALS: patient oriented x3 Psych: COMMON NORMALS: mental status grossly normal Discharge Data Data Completed and Pending: Completed Studies During Hospitalization Category Date Time Status XR chest 1V trina ble [id number] Stat Exams 08/04/21 11:39 Completed Pending at discharge Category Date Time Status Blood Culture AM LABS Lab 08/06/21 15:22 Results Blood Culture Sta t Lab 08/04/21 13:51 Results C Reactive Protei n AM LABS Lab 08/09/21 04:00 Ordered C Reactive Protei n AM LABS Lab 08/10/21 04:00 Ordered Complete Blood Co unt w/Auto AM LABS Lab 08/09/21 04:00 Ordered Complete Blood Co unt w/Auto AM LABS Lab 08/10/21 04:00 Ordered Comprehensive Met abolic Panel AM LA BS Lab 08/09/21 04:00 Ordered Comprehensive Met abolic Panel AM LA BS Lab 08/10/21 04:00 Ordered MRSA by PCR AM LA BS Lab 08/07/21 09:40 Received Magnesium AM LABS Lab 08/09/21 04:00 Ordered Magnesium AM LABS Lab 08/10/21 04:00 Ordered Phosphorus AM LAB S Lab 08/09/21 04:00 Ordered Phosphorus AM LAB S Lab 08/10/21 04:00 Ordered Procalcitonin AM LABS Lab 08/09/21 04:00 Ordered Procalcitonin AM LABS Lab 08/10/21 04:00 Ordered Sputum Culture an d [facility] 08/07/21 12:38 Results Labs from last 24 hours 08/08/21 08/08/21 08/08/21 11:53 06:58 06:58 WBC RBC Hgb Hct MCV MCH MCHC RDW Plt Count MPV Neut % (Auto) Lymph % (Auto) [place] % (Auto) Eos % (Auto) Baso % (Auto) Neut # (Auto) Lymph # (Auto) [place] # (Auto) Eos # (Auto) Baso # (Auto) Nucleated RBC % (a uto) Nucleated RBCs # Sodium 138 Potassium 4.1 Chloride 98 Carbon Dioxide 27 Anion Gap 17.1 BUN 30 H Creatinine 0.8 GFR Calculation 99.6 Glucose 205 H POC Glucose 297 H Calculated Osmolal ity 298 H Calcium 8.5 Phosphorus 2.3 L Magnesium 2.1 Total Bilirubin 0.2 AST 15 ALT 18 Alkaline Phosphata se 57 C-Reactive Protein 13.8 H Total Protein 6.8 Albumin 3.8 Globulin 3.0 Procalcitonin 0.08 08/08/21 08/08/21 08/07/21 06:58 06:23 21:19 WBC 9.1 RBC 4.83 Hgb 14.9 Hct 45.1 MCV 93.4 MCH 30.8 MCHC 33.0 RDW 14.6 Plt Count 249 MPV 11.4 H Neut % (Auto) 89.0 Lymph % (Auto) 5.5 [place] % (Auto) 4.7 Eos % (Auto) 0.0 Baso % (Auto) 0.1 Neut # (Auto) 8.10 H Lymph # (Auto) 0.5 L [place] # (Auto) 0.4 Eos # (Auto) 0.0 Baso # (Auto) 0.0 Nucleated RBC % (a uto) 0 Nucleated RBCs # 0.0 Sodium Potassium Chloride Carbon Dioxide Anion Gap BUN Creatinine GFR Calculation Glucose POC Glucose 213 H 170 H Calculated Osmolal ity Calcium Phosphorus Magnesium Total Bilirubin AST ALT Alkaline Phosphata se C-Reactive Protein Total Protein Albumin Globulin Procalcitonin 08/07/21 08/07/21 21:16 17:07 WBC RBC Hgb Hct MCV MCH MCHC RDW Plt Count MPV Neut % (Auto) Lymph % (Auto) [place] % (Auto) Eos % (Auto) Baso % (Auto) Neut # (Auto) Lymph # (Auto) [place] # (Auto) Eos # (Auto) Baso # (Auto) Nucleated RBC % (a uto) Nucleated RBCs # Sodium Potassium Chloride Carbon Dioxide Anion Gap BUN Creatinine GFR Calculation Glucose POC Glucose 236 H 214 H Calculated Osmolal ity Calcium Phosphorus Magnesium Total Bilirubin AST ALT Alkaline Phosphata se C-Reactive Protein Total Protein Albumin Globulin Procalcitonin Vitals: Last Vital Signs Temp 97.9 F 08/08/21 11:57 Pulse 77 08/08/21 11:57 Resp 16 08/08/21 11:57 BP 109/77 08/08/21 11:57 Pulse Ox 91 08/08/21 11:57 Discharge Plan Discharge Patient Disposition: Home Condition: Stable Prescriptions: New doxycycline hyclate 100 mg tablet 100 mg PO BID 5 Days Qty: 10 RF: 0 prednisone 20 mg tablet 20 mg PO BID 5 Days Qty: 10 RF: 0 Continued atorvastatin 80 mg tablet 80 mg PO DAILY RF: 0 aspirin 81 mg tablet,delayed release (DR/EC) 81 mg PO DAILY RF: 0 albuterol sulfate 90 mcg/actuation HFA aerosol inhaler 1 inh INHALATION QID RF: 0 gabapentin 600 mg tablet 600 mg PO TID RF: 0 metformin 500 mg tablet 500 mg PO BID RF: 0 methocarbamol 500 mg tablet 500 mg PO BEDTIME RF: 0 nitroglycerin 0.4 mg tablet, sublingual 0.4 mg SUBLINGUAL Q5M PRN (Reason: Chest Pain) RF: 0 Brilinta 90 mg tablet 90 mg PO BID RF: 0 tramadol 50 mg tablet 50 mg PO Q6H PRN (Reason: Pain) RF: 0 budesonide-formoterol [Symbicort] 160-4.5 mcg/actuation HFA aerosol inhaler 2 puff INHALATION BID RF: 0 Spiriva Respimat 2.5 mcg/actuation mist 2 puff INHALATION DAILY RF: 0 potassium chloride 20 mEq tablet extended release 20 meq PO DAILY RF: 0 furosemide 40 mg tablet 40 mg PO DAILY RF: 0 ketoconazole 2 % shampoo 1 applic topical .2 x weekly Qty: 120 RF: 6 ketoconazole 2 % cream 1 applic topical BID Qty: 30 RF: 2 clobetasol 0.05 % solution 1 applic topical DAILY Qty: 50 RF: 3 triamcinolone acetonide 0.1 % cream 1 applic topical BID 60 Days Qty: 80 RF: 0 acetaminophen 500 mg tablet 1,000 mg PO TID PRN (Reason: Pain) RF: 0 Jardiance 25 mg tablet 25 mg PO DAILY RF: 0 cetirizine 10 mg tablet 10 mg PO DAILY PRN (Reason: Allergy Symptoms) RF: 0 insulin aspart U-100 [Novolog Flexpen U-100 Insulin] 100 unit/mL (3 mL) insulin pen 16 unit SUBCUT TID RF: 0 ipratropium-albuterol 0.5 mg-3 mg(2.5 mg base)/3 mL solution for nebulization 3 ml INHALATION QID PRN (Reason: Shortness Of Breath) RF: 0 metoprolol tartrate 25 mg tablet 25 mg PO BID RF: 0 Ozempic 1 mg/dose (2 mg/1.5 mL) pen injector 1 mg SUBCUT Q7D RF: 0 metolazone 2.5 mg tablet 2.5 mg PO DAILY PRN (Reason: Edema) RF: 0 Changed insulin glargine 100 unit/mL (3 mL) insulin pen 70 unit SUBCUT BEDTIME Qty: 0 RF: 0 Discharge Orders: Discharge Order (Routine); Ordered 08/08/21 Ordered By: Willi Mcgraw Referrals: Karla Ryan MD [Primary Care Provider] - 1-3 days Discharge Diet: Regular and Diabetic Discharge Activity: Resume usual activity Patient Instructions: Doxycycline (By mouth), Prednisone (By mouth), Pneumonia (GEN), Opioid Safety Activity Restrictions/Additional Instructions: -I am discharging you on doxycycline and prednisone for COPD exacerbation -I have increased the glargine to 70 units at bedtime -Continue your short acting NovoLog 16 units 3 times daily -Monitor blood sugars closely -If blood sugar greater than 500, call primary care blood sugar less than 60 drink or juice or eat a hard candy -Follow-up with primary care provider in less than 1 week Discharge Attestations Time Spent in Discharge Care*: less than 30 min Quality Metrics Clinical Quality Measures During this hospital stay, did patient experience: None Coding Level of Care Code Acute [facility] [place] note Diagnoses Acute exacerbation of chronic obstructive airways disease J44.1 Pneumonia J18.9 CHF (congestive heart failure) I50.23 Heart failure type: systolic Heart failure chronicity: acute on chronic Hypertension I10 Hypertension type: essential hypertension ICD (implantable cardioverter-defibrillator) in place Z95.810 CAD (coronary artery disease) I25.10 Coronary Disease-Associated Artery/Lesion type: false pass artery Tribe vs. transplanted heart: false pass heart Associated angina: without angina Diabetes E11.9 CAPRI (acute kidney injury) N17.9
== END 2021-08-08 14:36 | disposition home or self-care (01) | DRG 190 ==
LOC: ER 11:56 → MEDSURG 16:04
PROVIDERS: Admitting Provider Internal Medicine; Emergency Provider Family Medicine; PCP Family Medicine; Visit Provider Family Medicine
DX: J44.1 Chronic obstructive pulmonary disease with (acute) exacerbation (principal); J18.9 Pneumonia, unspecified organism; I50.23 Acute on chronic systolic (congestive) heart failure; I13.0 Hypertensive heart and chronic kidney disease with heart failure and stage 1 through stage 4 chronic kidney disease, or unspecified chronic kidney disease; N17.9 Acute kidney failure, unspecified; Z68.41 Body mass index [BMI] 40.0-44.9, adult; J96.12 Chronic respiratory failure with hypercapnia; E11.22 Type 2 diabetes mellitus with diabetic chronic kidney disease; N18.30 Chronic kidney disease, stage 3 unspecified; B97.81 Human metapneumovirus as the cause of diseases classified elsewhere; I25.10 Atherosclerotic heart disease of native coronary artery without angina pectoris; I25.5 Ischemic cardiomyopathy; G47.33 Obstructive sleep apnea (adult) (pediatric); E66.01 Morbid (severe) obesity due to excess calories; E78.5 Hyperlipidemia, unspecified; I25.2 Old myocardial infarction; Z79.82 Long term (current) use of aspirin; Z79.84 Long term (current) use of oral hypoglycemic drugs; Z79.4 Long term (current) use of insulin; Z95.810 Presence of automatic (implantable) cardiac defibrillator; Z87.891 Personal history of nicotine dependence; Z95.5 Presence of coronary angioplasty implant and graft
CPT/HCPCS: 36415; 36416; 71045; 80048; 80053; 80202; 81001; 82962; 83605; 83735; 83880; 84100; 84145; 85025; 86140; 86403; 87040; 87070; 87205; 87449; 87635; 87641; 87801; 93005; 94640; 94660; 96365; 96367; 96372; 99285; J0456; J0696; J1815 ×2; J2920; J3370; J3490; J7030; J7040; J7050

== ENCOUNTER 2021-08-22 06:00 | Outpatient (RCR) | payer OTHER, SELFPAY | END 2021-09-11 23:59 | disposition home or self-care (01) | LOC: SPT 06:00 | PROVIDERS: PCP Family Medicine; Referring Provider Podiatrist Foot & Ankle Surgery; Visit Provider Podiatrist Foot & Ankle Surgery | DX: S86.09 Other specified injury of Achilles tendon (principal); X58.XXXS Exposure to other specified factors, sequela | CPT/HCPCS: 97110; 97161 ==

== ENCOUNTER 2021-10-03 13:21 | Outpatient (CLI) | payer OTHER, SELFPAY ==
--- NOTE | 2021-10-03 14:15 | USCV_ITS ---
Param Tejada Age: 56 Gender: M : 1965 Exam Date: 10/03/2021 13:41 Ordering Phys: Edwige Steiner MD ([email or web address]) Technologist: MIKE [place] [facility] [place]: CHF BP: 115 / 80 HR: 56 Rhythm: Sinus Technical Quality: Technically difficult study MEASUREMENTS (Male / Female) Normal Values 2D ECHO LV Diastolic Diameter PLAX 3.1 cm 4.2 - 5.9 / 3.9 - 5.3 cm LV Systolic Diameter PLAX 3.9 cm LV Chamber Size 5.2 cm IVS Diastolic Thickness 2.8 cm 0.6 - 1.0 / 0.6 - 0.9 cm IVS Systolic Thickness 1.4 cm LVPW Diastolic Thickness 1.3 cm 0.6 - 1.0 / 0.6 - 0.9 cm LVPW Systolic Thickness 1.3 cm RV Chamber Size 2.8 cm LVOT Diameter 2.0 cm LV Ejection Fraction 2D Teich 1.8 % LV Ejection Fraction MOD 2C 10.5 % LV Ejection Fraction 2C AL 14.0 % LA Diameter 4.4 cm LA Width 6.4 cm LA Height 6.1 cm RA Width 3.7 cm RA Height 4.0 cm Aorta at Sinotubular Diameter 2.7 cm M-MODE Aortic Annulus Diameter 2.5 cm LA Ao Ratio MM 1.8 MV E Point Septal Separation 1.8 cm DOPPLER AV Peak Velocity 126.0 cm/s LVOT Peak Velocity 54.0 cm/s AV Area Cont Eq vti 1.5 cm squared AV Area Cont Eq pk 1.4 cm squared MV Area PHT 5.0 cm squared Mitral E to A Ratio 1.4 MV E' Velocity 43.5 cm/s Mitral E to MV E' Ratio 18.6 Mitral E to LV E' Lateral Ratio 18.2 Mitral E to LV E' Septal Ratio 19.1 TR Peak Velocity 170.8 cm/s TR Peak Gradient 11.7 mmHg TR Mean Velocity 171.7 cm/s TR Mean Gradient 12.2 mmHg TR Velocity Time Integral 75.8 cm TV Peak E Velocity 46.0 cm/s Right Atrial Pressure 3.0 mmHg Pulmonary Artery Systolic Pressu 14.7 mmHg PV Peak Velocity 61.0 cm/s RV Acceleration Time 0.1 s RV Ejection Time 0.2 s RV AcT/ET 0.4 FINDINGS Left Ventricle Normal left ventricular size. Grossly LV systolic function is severely reduced. Regional wall motion abnormalities cannot be accurately assessed because of poor visualization;. Grade 2 diastolic dysfunction Right Ventricle The right ventricle is normal in size and function. Right Atrium The right atrium is normal in size. Left Atrium The left atrium is dilated Mitral Valve Mitral valve is thickened without significant stenosis or prolapse. There is no mitral regurgitation. Aortic Valve Not well visualized. No significant stenosis. There is no aortic regurgitation. Tricuspid Valve Grossly normal without significant stenosis. Mild Tricuspid regurgitation. Pulmonary artery systolic pressure is normal. Pulmonic Valve Not well visualized Pericardium Normal pericardium without effusion. Aorta Normal ascending aorta dimension. CONCLUSIONS Technically limited quality echocardiogram because of poor ultrasonic windows. Grossly LV systolic function is severely reduced Grade 2 diastolic dysfunction Left atrium is dilated Mild tricuspid regurgitation For accurate assessment of LV systolic function and regional wall motion abnormalities, recommend limited ECHO with contrast Comparison with prior echocardiogram is not possible because of poor ultrasonic windows but LV systolic function appears to have decreased significantly Alverto Qureshi MD (Electronically Signed) Final Date: 14 October 2021 11:14 S
== END 2021-10-03 13:22 | disposition home or self-care (01) ==
LOC: RAD 13:25
PROVIDERS: PCP Family Medicine; Visit Provider Internal Medicine Cardiovascular Disease
DX: I50.23 Acute on chronic systolic (congestive) heart failure (principal); R06.02 Shortness of breath; I07.1 Rheumatic tricuspid insufficiency
CPT/HCPCS: 93306

== ENCOUNTER → 2021-12-12 10:17 | Outpatient (BNVA) | payer OTHER, SELFPAY | PROVIDERS: PCP Family Medicine; Visit Provider Internal Medicine Cardiovascular Disease | DX: I13.0 Hypertensive heart and chronic kidney disease with heart failure and stage 1 through stage 4 chronic kidney disease, or unspecified chronic kidney disease (principal); E11.22 Type 2 diabetes mellitus with diabetic chronic kidney disease; N18.2 Chronic kidney disease, stage 2 (mild); I50.9 Heart failure, unspecified; Z79.4 Long term (current) use of insulin; Z79.84 Long term (current) use of oral hypoglycemic drugs; F17.210 Nicotine dependence, cigarettes, uncomplicated; I25.5 Ischemic cardiomyopathy; Z95.810 Presence of automatic (implantable) cardiac defibrillator; I25.10 Atherosclerotic heart disease of native coronary artery without angina pectoris; J44.9 Chronic obstructive pulmonary disease, unspecified | CPT/HCPCS: 99214 ==

== ENCOUNTER 2022-01-11 06:00 | Outpatient (RCR) | payer OTHER, SELFPAY | END 2022-02-08 23:59 | disposition home or self-care (01) | LOC: SPT 06:00 | PROVIDERS: PCP Family Medicine; Referring Provider Orthopaedic Surgery; Visit Provider Orthopaedic Surgery | DX: Z47.1 Aftercare following joint replacement surgery (principal); Z96.652 Presence of left artificial knee joint | CPT/HCPCS: 97110; 97161 ==

== ENCOUNTER → 2022-01-25 10:29 | Outpatient (BNVA) | payer OTHER, SELFPAY | PROVIDERS: PCP Family Medicine; Visit Provider Internal Medicine Critical Care Medicine | DX: J44.9 Chronic obstructive pulmonary disease, unspecified (principal); G47.33 Obstructive sleep apnea (adult) (pediatric); I25.5 Ischemic cardiomyopathy; Z87.891 Personal history of nicotine dependence; E78.5 Hyperlipidemia, unspecified; I10 Essential (primary) hypertension | CPT/HCPCS: 99214 ==

== ENCOUNTER 2022-01-31 13:17 | Observation (INO) | payer OTHER, SELFPAY ==
[2022-01-31] VITALS (7 sets, daily range): BP systolic 92–160; BP diastolic 66–93; PULSE 69–128; RESP 15–19; TEMP 36.3–36.8; O2SAT 90–100; BMI 38.2
--- NOTE | 2022-01-31 14:01 | ECG_ITS ---
[facility] Test Date: 2022-01-31 Pat Name: Param Tejada Department: Room: Gender: Male [employer]: : 1965 Requested By: Blyane Boone Order Number: [id number] Almita MD: Janina Stuart M.D. Measurements Intervals [place] Rate: 122 P: 17 [place]: 232 QRS: 265 QRSD: 157 T: 79 QT: 371 QTc: 531 Interpretive Statements SINUS TACHYCARDIA WITH FIRST DEGREE AV BLOCK RIGHT AXIS DEVIATION [QRS AXIS > 100] RIGHT BUNDLE BRANCH BLOCK [120+ ms QRS DURATION, UPRIGHT V1, 40+ ms S IN I/aVL/V4/V5/V6] POSSIBLE ANTERIOR MYOCARDIAL INFARCTION , OF INDETERMINATE AGE [30 ms Q WAVE IN V3/V4, OR R < 0.2 mV IN V4] Compared to ECG 08/04/2021 12:07:40 First degree AV block now present Ventricular premature complex(es) no longer present Myocardial infarct finding still present Electronically Signed On 01-31-2022 22:26:34 CDT by Janina Stuart M.D. [email or web address]
--- NOTE | 2022-01-31 14:27 | XR_ITS ---
WS: [id number] Exam: XR chest 1V portable [id number] Date/Time of Exam: 01/31/2022 2:29 PM Reason For Exam: dyspnea/cough Comparison 08/04/2021. The lungs are fully expanded and clear. Mild cardiac enlargement unchanged. An ICD superimposes the l eft chest. The mediastinum is normal in contour. Bony structures appear normal. Several old left rib fractures noted. XR/XR chest 1V portable [id number] IMPRESSION: 1. Mild cardiac enlargement unchanged. No acute process noted.
[2022-01-31 15:08] LABS: Basophils # 0.1 10^3/uL (0.0-0.1); Eosinophils # 0.3 10^3/uL (0.0-0.8); Eosinophils % 3.4 %; Lymphocytes # 1.2 10^3/uL (0.8-4.8); Mean Corpuscular Hemoglobin 27.8 pg (28.0-34.0); Mean Corpuscular Volume 81.7 fl (80-94); Mean Platelet Volume 11.3 fL (7.4-10.4); Monocytes # 0.7 10^3/uL (0.2-0.9); Monocytes % 7.9 %; Neutrophils % 73.4 %; Nucleated Red Blood Cells % 0 %; Platelet Count 407 10^3/cmm (130-400); Red Blood Count 5.75 10^6/uL (4.1-5.3); Red Cell Distribution Width 15.4 % (12.1-15.1); White Blood Count 8.7 10^3/uL (4.0-10.0)
--- NOTE | 2022-01-31 15:19 | PC.NURSE ---
Lab called and stated they needed a second re-draw. Lab coming to draw the 3rd attempt.
--- NOTE | 2022-01-31 15:20 | W.ED.WEAKNES ---
HPI - Weakness General: Chief complaint: Weakness Stated complaint: low BP Time Seen by Provider: 01/31/22 13:50 Source: patient Mode of arrival: ambulatory Limitations: no limitations History of Present Illness: 56-year-old morbidly obese male presents emergency room complaining of generalized weakness and lowblood pressures and heart rate for the last couple of weeks. On arrival here his blood pressure is 136/93 with a heart rate of 128. He has a sinus tachycardia with a right bundle branch block. He is not in any respiratory distress he denies any chest pain just shortness of breath is worse with activity. He has not had a productive cough no fever sweats or chills. MD Complaint: generalized weakness Onset (ago): day(s) Duration: intermittent Severity: mild Relieving factors: none Exacerbating factors: none Associated symptoms: Denies chest pain, chills, confusion, melena, decreased appetite, diaphoresis, dysuria, easy bruising, fever(s), headache(s), myalgias, nausea, rash, short of breath, syncope or vomiting Review of Systems Const: Denies: fever(s), chills, fatigue, malaise or diaphoresis ENMT: Denies: throat pain, ear or mastoid pain, nasal discharge or nasal congestion Card: Denies: chest pain or syncope Resp: Reports: dyspnea; Denies: productive cough, non-productive cough or wheezing GI: Denies: abdominal pain, nausea, vomiting or melena : Denies: flank pain, difficulty urinating, dysuria or urinary frequency Skin/Breast: Denies: rash or pruritus Neuro: Denies: headache(s) or confusion Ruben/Lymph: Denies: easy bruising PFSH ED PFSH: Medical History CAD (coronary artery disease) CHF (congestive heart failure) Chronic hypercapnic respiratory failure 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 2 diabetes mellitus COPD (chronic obstructive pulmonary disease) Hyperlipidemia Hypertension Hypoxia 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 dependent diabetes mellitus Ischemic cardiomyopathy Morbid obesity Obstructive sleep apnea ST elevation myocardial infarction (STEMI) of inferior wall Tobacco abuse Surgical History History of cardiac defibrillator placement History of coronary artery stent placement -hx of CAD with inferior wall DC s/p RCA stent, LAD stent Family History Denies family history of CAD (coronary artery disease) Social History Smoking and tobacco status: former smoker Quit status (tobacco): has quit using tobacco Year quit tobacco: 2020 - 1.5 PPD x 40 YEars Second hand smoke exposure: No Smoking risk assessment/counseling performed?: No Alcohol intake: never Desire information about alcohol rehabilitation?: No Counseling given: No Desire information about substance/drug rehabilitation?: No Counseling given: No Lives independently: Yes Household members: none Marital status: Single service: Yes Current occupational status: disabled Pets and animals: Yes Pets & animals: dog(s) History of recent travel: No Current gender identity: Male Physical Exam Const: COMMON NORMALS: no acute distress GENERAL APPEARANCE: cooperative and comfortable ORIENTATION/CONSCIOUSNESS: Yes awake, Yes oriented to person, Yes oriented to place and Yes oriented to time HENMT: COMMON NORMALS: normocephalic and atraumatic HEAD & SCALP: normocephalic and atraumatic Neck/C-Spine: COMMON NORMALS: no JVD Resp: COMMON NORMALS: normal respiratory effort, No retractions, No use of accessory muscles and clear to auscultation bilaterally AUSCULTATION: clear to auscultation bilaterally Cardio: COMMON NORMALS: no JVD, regular rate, regular rhythm and No murmurs present (Cardio) RATE: regular rate RHYTHM: regular rhythm GI: COMMON NORMALS: Soft to palpation and No hepatosplenomegaly present AUSCULTATION: Yes normoactive bowel sounds PALPATION: Yes Soft to palpation, No Tenderness to palpation present (GI), No Guarding due to palpation present (GI) and Yes No hepatosplenomegaly present Extremity: COMMON NORMALS: normal to inspection, capillary refill normal, no clubbing, cyanosis or edema, no calf tenderness and no pedal edema Neuro: SENSORIUM/ORIENTATION: Yes oriented to person, Yes oriented to place and Yes oriented to time Skin: COMMON NORMALS: no rashes or lesions noted GENERAL SKIN EXAM: no rashes or lesions noted Course Vital Signs: Vital signs: Vital Signs Temperature 98 F 01/31/22 13:28 Pulse Rate 115 H 01/31/22 16:20 Respiratory Rate 15 01/31/22 16:20 Blood Pressure 160/66 01/31/22 13:54 Pulse Oximetry 94 01/31/22 16:20 MDM - Weakness Medical Decision Making Patient is tachycardic he has a very low ejection fraction which think is worsened things for he is also profoundly hypokalemic and hyponatremic. Will admit discussed with hospitalist orders written restart beta-sheila. Medical Records I reviewed the patient's medical records. Lab Data I reviewed the patient's lab results. : 01/31/22 15:00 01/31/22 15:36 Radiology Impressions Chest X-Ray 01/31/22 14:27 IMPRESSION: 1. Mild cardiac enlargement unchanged. No acute process noted. Laboratory Results WBC 8.7 10^3/uL (4.0-10.0) 01/31/22 15:00 Corrected WBC Cancelled 01/31/22 14:23 RBC 5.75 10^6/uL (4.1-5.3) H 01/31/22 15:00 Hgb 16.0 g/dL (11.7-16.6) 01/31/22 15:00 Hct 47.0 % (42.0-52.0) 01/31/22 15:00 MCV 81.7 fl (80-94) 01/31/22 15:00 MCH 27.8 pg (28.0-34.0) L 01/31/22 15:00 MCHC 34.0 g/dL (30.0-36.0) 01/31/22 15:00 RDW 15.4 % (12.1-15.1) H 01/31/22 15:00 Plt Count 407 10^3/cmm (130-400) H 01/31/22 15:00 MPV 11.3 fL (7.4-10.4) H 01/31/22 15:00 Gran % Cancelled 01/31/22 14:23 Neut % (Auto) 73.4 % 01/31/22 15:00 Lymph % (Auto) 14.0 % 01/31/22 15:00 [place] % (Auto) 7.9 % 01/31/22 15:00 Eos % (Auto) 3.4 % 01/31/22 15:00 Baso % (Auto) 1.0 % 01/31/22 15:00 Neut # (Auto) 6.40 10^3/uL (1.8-7.7) 01/31/22 15:00 Lymph # (Auto) 1.2 10^3/uL (0.8-4.8) 01/31/22 15:00 [place] # (Auto) 0.7 10^3/uL (0.2-0.9) 01/31/22 15:00 Eos # (Auto) 0.3 10^3/uL (0.0-0.8) 01/31/22 15:00 Baso # (Auto) 0.1 10^3/uL (0.0-0.1) 01/31/22 15:00 Absolute Gran (auto) Cancelled 01/31/22 14:23 Nucleated RBC % (auto) 0 % 01/31/22 15:00 Nucleated RBCs # 0.0 /100WBC 01/31/22 15:00 Sodium 124 mmol/L (136-145) L 01/31/22 15:36 Potassium 2.7 mmol/L (3.5-5.1) L* 01/31/22 15:36 Chloride 83 mmol/L (98-107) L 01/31/22 15:36 Carbon Dioxide 25 mmol/L (22-29) 01/31/22 15:36 Anion Gap 18.7 (5-19) 01/31/22 15:36 BUN 30 mg/dL (6-20) H 01/31/22 15:36 Creatinine 1.2 mg/dL (0.7-1.2) 01/31/22 15:36 GFR Calculation 62.4 mL/min (90-130) L 01/31/22 15:36 Glucose 364 mg/dL (65-115) H 01/31/22 15:36 Calculated Osmolality 279 mOsm/kg (285-295) L 01/31/22 15:36 Calcium 9.6 mg/dL (8.5-10.5) 01/31/22 15:36 Total Bilirubin 0.4 mg/dL (0.15-1.2) 01/31/22 15:36 AST 16 U/L (0-40) 01/31/22 15:36 ALT 18 U/L (0-41) 01/31/22 15:36 Alkaline Phosphatase 124 IU/L (40-130) 01/31/22 15:36 NT-Pro-B Natriuret Pep 1468 pg/mL (0-125) H 01/31/22 15:36 Total Protein 7.8 g/dL (6.6-8.7) 01/31/22 15:36 Albumin 3.7 g/dL (3.5-5.2) 01/31/22 15:36 Globulin 4.1 g/dL (1.3-4.6) 01/31/22 15:36 Discharge Plan Discharge Condition: Stable Prescriptions: No Action atorvastatin 80 mg tablet 80 mg PO QPM 0RF aspirin 81 mg tablet,delayed release (DR/EC) 81 mg PO QAM 0RF metformin 500 mg tablet 500 mg PO BID 0RF methocarbamol 500 mg tablet 1,000 mg PO BEDTIME 0RF nitroglycerin 0.4 mg tablet, sublingual 0.4 mg SUBLINGUAL Q5M PRN (Reason: Chest Pain) 0RF Brilinta 90 mg tablet 90 mg PO BID 0RF tramadol 50 mg tablet 50 - 100 mg PO TID PRN (Reason: Pain) 0RF albuterol sulfate 90 mcg/actuation HFA aerosol inhaler 2 puff INHALATION QID PRN (Reason: Shortness Of Breath) 0RF Spiriva Respimat 2.5 mcg/actuation mist 2 puff INHALATION DAILY 0RF fluticasone propion-salmeterol [Wixela Inhub] 250-50 mcg/dose blister with device 1 inh inhalation BID 0RF potassium chloride 20 mEq tablet extended release 20 meq PO DAILY 0RF furosemide 40 mg tablet 40 mg PO QAM 0RF metoprolol succinate 25 mg tablet extended release 24 hr 12.5 mg PO DAILY Qty: 30 2RF acetaminophen 500 mg tablet 1,000 mg PO TID PRN (Reason: Pain) 0RF Jardiance 25 mg tablet 25 mg PO QAM 0RF cetirizine 10 mg tablet 10 mg PO DAILY PRN (Reason: Allergy Symptoms) 0RF insulin aspart U-100 [Novolog Flexpen U-100 Insulin] 100 unit/mL (3 mL) insulin pen See Rx Instructions .ROUTE .COMPLEX 0RF Rx Instructions: sliding scale tid prn ipratropium-albuterol 0.5 mg-3 mg(2.5 mg base)/3 mL solution for nebulization 3 ml INHALATION QID PRN (Reason: Shortness Of Breath) 0RF metolazone 2.5 mg tablet 2.5 mg PO QAM 0RF Rx Instructions: 30 minutes before morning Lasix dose albuterol sulfate 2.5 mg /3 mL (0.083 %) Solution For Nebulization 2.5 mg INHALATION Q4H PRN (Reason: Shortness Of Breath) 0RF Senna-S 8.6-50 mg Tablet 1 tab PO BEDTIME 0RF gabapentin 400 mg Capsule 400 mg PO Q8H 0RF Vitamin D3 25 mcg (1,000 unit) Capsule 3,000 unit PO BEDTIME 0RF naloxone 4 mg/actuation [place],Non-Aerosol 4 mg INTRANASAL Q2M PRN (Reason: overdose) 0RF Rx Instructions: spray 1 dose into ONE nostril; alternate nostrils w each dose until help arrives Ozempic 0.25 mg or 0.5 mg(2 mg/1.5 mL) Pen Injector 1 mg SUBCUT Q7D 0RF Rx Instructions: on fridays ketoconazole 2 % shampoo 1 applic topical .2 x weekly PRN (Reason: unknown) 0RF Rx Instructions: Lather into scalp 2-3 times weekly. Allow to sit on scalp for 5 minutes before rinsing. 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
[2022-01-31] MEDS: metoprolol tartrate 25 mg Tablet PO (15:40)
--- NOTE | 2022-01-31 15:50 | PC.PHAR ---
pt states he takes care of his own medications-pt states the [facility] dr heredia his metoprolol succinate er 25mg take 12.5mg daily pt states dr heredia a week ago-notes are made in the pharmacy comments
--- NOTE | 2022-01-31 16:16 | ECG_ITS ---
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 Measurements Intervals [place] Rate: 113 P: [place]: QRS: 247 QRSD: 166 T: 60 QT: 346 QTc: 475 Interpretive Statements SINUS TACHYCARDIA RIGHT AXIS DEVIATION [QRS AXIS > 100] RIGHT BUNDLE BRANCH BLOCK [120+ ms QRS DURATION, UPRIGHT V1, 40+ ms S IN I/aVL/V4/V5/V6] ANTEROSEPTAL MYOCARDIAL INFARCTION , PROBABLY RECENT [40+ ms Q WAVE IN V1-V4] Compared to ECG 01/31/2022 14:24:31 Sinus tachycardia no longer present First degree AV block no longer present Myocardial infarct finding still present Electronically Signed On 01-31-2022 22:26:16 CDT by Janina Stuart M.D. [id number]
[2022-01-31 16:25] LABS: Alanine Aminotransferase 18 U/L (0-41); Albumin Level 3.7 g/dL (3.5-5.2); Alkaline Phosphatase 124 IU/L (40-130); Anion Gap 18.7 (5-19); Aspartate Amino Transferase 16 U/L (0-40); Blood Urea Nitrogen 30 mg/dL (6-20); Calcium 9.6 mg/dL (8.5-10.5); Carbon Dioxide 25 mmol/L (22-29); Chloride 83 mmol/L (98-107); Globulin 4.1 g/dL (1.3-4.6); Glomerular Filtration Rate 62.4 mL/min (90-130); Glucose 364 mg/dL (65-115); NT Pro B Type Natriuretic Pept 1468 pg/mL (0-125); Osmolality Calculated 279 mOsm/kg (285-295); Sodium 124 mmol/L (136-145); Total Bilirubin 0.4 mg/dL (0.15-1.2); Total Protein 7.8 g/dL (6.6-8.7)
[2022-01-31 16:33] LABS: Potassium 2.7 mmol/L (3.5-5.1)
[2022-01-31 17:14] LABS: Troponin(5th) Baseline 82 ng/L (0-15)
[2022-01-31] MEDS: potassium chloride premix 100 ML 25 MEQ IV (17:31)
[2022-01-31] MEDS: sodium chloride 0.9% 500 ML IV (17:31)
--- NOTE | 2022-01-31 17:46 | ED_ITS ---
HPI - Weakness General: Chief complaint: Weakness Stated complaint: low BP Time Seen by Provider: 01/31/22 13:50 Source: patient Mode of arrival: ambulatory Limitations: no limitations History of Present Illness: 56-year-old male presents emergency room with complaint of weakness generally not feeling well. His blood pressures been low and his heart rate has been high. He has not had any chest pain he has been mildly orthopneic and exertionally dyspneic. Known history of severe ischemic cardiomyopathy with ejection fraction was unable to be calculated on his last echo. MD Complaint: generalized weakness Severity: mild Relieving factors: none Exacerbating factors: none Associated symptoms: Denies chest pain, chills, melena, dysuria, fever(s), naus ea or vomiting Review of Systems Const: Denies: fever(s), chills, body aches, change in appetite, fatigue or malaise ENMT: Denies: throat pain, ear or mastoid pain, nasal discharge or nasal congestion Card: Reports: palpitations, dyspnea on exertion and orthopnea; Denies: chest pain or edema Resp: Reports: dyspnea; Denies: productive cough or non-productive cough GI: Denies: abdominal pain, nausea, vomiting, hematemesis, coffee ground emesis, diarrhea, constipation, bloating, hematochezia or melena : Denies: flank pain, difficulty urinating, dysuria, urinary frequency or urinary urgency Skin/Breast: Denies: rash or pruritus PFSH ED PFSH: Medical History CAD (coronary artery disease) CHF (congestive heart failure) Chronic hypercapnic respiratory failure 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 2 diabetes mellitus COPD (chronic obstructive pulmonary disease) Hyperlipidemia Hypertension Hypoxia 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 dependent diabetes mellitus Ischemic cardiomyopathy Morbid obesity Obstructive sleep apnea ST elevation myocardial infarction (STEMI) of inferior wall Tobacco abuse Surgical History History of cardiac defibrillator placement History of coronary artery stent placement -hx of CAD with inferior wall [place] s/p RCA stent, LAD stent Family History Denies family history of CAD (coronary artery disease) Social History Smoking and tobacco status: former smoker Quit status (tobacco): has quit using tobacco Year quit tobacco: 2020 - 1.5 PPD x 40 YEars Second hand smoke exposure: No Smoking risk assessment/counseling performed?: No Alcohol intake: never Desire information about alcohol rehabilitation?: No Counseling given: No Desire information about substance/drug rehabilitation?: No Counseling given: No Lives independently: Yes Household members: none Marital status: Single service: Yes Current occupational status: disabled Pets and animals: Yes Pets & animals: dog(s) History of recent travel: No Current gender identity: Male Physical Exam Const: GENERAL APPEARANCE: cooperative and comfortable ORIENTATION/CONSCIOUSNESS: Yes awake, Yes oriented to person, Yes oriented to place and Yes oriented to time HENMT: COMMON NORMALS: normocephalic, atraumatic and hearing grossly normal bilaterally HEAD & SCALP: normocephalic and atraumatic Resp: AUSCULTATION: crackles and diminished lung sounds Cardio: RATE: tachycardic GI: COMMON NORMALS: Soft to palpation and No hepatosplenomegaly present AUSCULTATION: Yes normoactive bowel sounds PALPATION: Yes Soft to palpation, No Tenderness to palpation present (GI), No Guarding due to palpation present (GI) and Yes No hepatosplenomegaly present Extremity: COMMON NORMALS: normal to inspection, capillary refill normal, no clubbing, cyanosis or edema, no calf tenderness and no pedal edema Neuro: SENSORIUM/ORIENTATION: Yes oriented to person, Yes oriented to place and Yes oriented to time Skin: COMMON NORMALS: no rashes or lesions noted GENERAL SKIN EXAM: no rashes or lesions noted Course Vital Signs: Vital signs: Vital Signs Temperature 98 F 01/31/22 13:28 Pulse Rate 115 H 01/31/22 16:20 Respiratory Rate 15 01/31/22 16:20 Blood Pressure 160/66 01/31/22 13:54 Pulse Oximetry 94 01/31/22 16:20 MDM - Weakness Medical Decision Making Admit to hospitalist. Discussed Dr. Dunne orders written. Medical Records I reviewed the patient's medical records. Lab Data I reviewed the patient's lab results. : 01/31/22 15:00 01/31/22 15:36 Radiology Impressions Chest X-Ray 01/31/22 14:27 IMPRESSION: 1. Mild cardiac enlargement unchanged. No acute process noted. Laboratory Results WBC 8.7 10^3/uL (4.0-10.0) 01/31/22 15:00 Corrected WBC Cancelled 01/31/22 14:23 RBC 5.75 10^6/uL (4.1-5.3) H 01/31/22 15:00 Hgb 16.0 g/dL (11.7-16.6) 01/31/22 15:00 Hct 47.0 % (42.0-52.0) 01/31/22 15:00 MCV 81.7 fl (80-94) 01/31/22 15:00 MCH 27.8 pg (28.0-34.0) L 01/31/22 15:00 MCHC 34.0 g/dL (30.0-36.0) 01/31/22 15:00 RDW 15.4 % (12.1-15.1) H 01/31/22 15:00 Plt Count 407 10^3/cmm (130-400) H 01/31/22 15:00 MPV 11.3 fL (7.4-10.4) H 01/31/22 15:00 Gran % Cancelled 01/31/22 14:23 Neut % (Auto) 73.4 % 01/31/22 15:00 Lymph % (Auto) 14.0 % 01/31/22 15:00 [place] % (Auto) 7.9 % 01/31/22 15:00 Eos % (Auto) 3.4 % 01/31/22 15:00 Baso % (Auto) 1.0 % 01/31/22 15:00 Neut # (Auto) 6.40 10^3/uL (1.8-7.7) 01/31/22 15:00 Lymph # (Auto) 1.2 10^3/uL (0.8-4.8) 01/31/22 15:00 [place] # (Auto) 0.7 10^3/uL (0.2-0.9) 01/31/22 15:00 Eos # (Auto) 0.3 10^3/uL (0.0-0.8) 01/31/22 15:00 Baso # (Auto) 0.1 10^3/uL (0.0-0.1) 01/31/22 15:00 Absolute Gran (auto) Cancelled 01/31/22 14:23 Nucleated RBC % (auto) 0 % 01/31/22 15:00 Nucleated RBCs # 0.0 /100WBC 01/31/22 15:00 Sodium 124 mmol/L (136-145) L 01/31/22 15:36 Potassium 2.7 mmol/L (3.5-5.1) L* 01/31/22 15:36 Chloride 83 mmol/L (98-107) L 01/31/22 15:36 Carbon Dioxide 25 mmol/L (22-29) 01/31/22 15:36 Anion Gap 18.7 (5-19) 01/31/22 15:36 BUN 30 mg/dL (6-20) H 01/31/22 15:36 Creatinine 1.2 mg/dL (0.7-1.2) 01/31/22 15:36 GFR Calculation 62.4 mL/min (90-130) L 01/31/22 15:36 Glucose 364 mg/dL (65-115) H 01/31/22 15:36 Calculated Osmolality 279 mOsm/kg (285-295) L 01/31/22 15:36 Calcium 9.6 mg/dL (8.5-10.5) 01/31/22 15:36 Total Bilirubin 0.4 mg/dL (0.15-1.2) 01/31/22 15:36 AST 16 U/L (0-40) 01/31/22 15:36 ALT 18 U/L (0-41) 01/31/22 15:36 Alkaline Phosphatase 124 IU/L (40-130) 01/31/22 15:36 NT-Pro-B Natriuret Pep 1468 pg/mL (0-125) H 01/31/22 15:36 Total Protein 7.8 g/dL (6.6-8.7) 01/31/22 15:36 Albumin 3.7 g/dL (3.5-5.2) 01/31/22 15:36 Globulin 4.1 g/dL (1.3-4.6) 01/31/22 15:36 Discharge Plan Discharge Patient Disposition: Admitted As Inpatient Clinical Impression: CHF (congestive heart failure), Ischemic cardiomyopathy, Hyponatremia, Hypokalemia Condition: Stable Prescriptions: No Action atorvastatin 80 mg tablet 80 mg PO QPM 0RF aspirin 81 mg tablet,delayed release (DR/EC) 81 mg PO QAM 0RF metformin 500 mg tablet 500 mg PO BID 0RF methocarbamol 500 mg tablet 1,000 mg PO BEDTIME 0RF nitroglycerin 0.4 mg tablet, sublingual 0.4 mg SUBLINGUAL Q5M PRN (Reason: Chest Pain) 0RF Brilinta 90 mg tablet 90 mg PO BID 0RF tramadol 50 mg tablet 50 - 100 mg PO TID PRN (Reason: Pain) 0RF albuterol sulfate 90 mcg/actuation HFA aerosol inhaler 2 puff INHALATION QID PRN (Reason: Shortness Of Breath) 0RF Spiriva Respimat 2.5 mcg/actuation mist 2 puff INHALATION DAILY 0RF fluticasone propion-salmeterol [Wixela Inhub] 250-50 mcg/dose blister with device 1 inh inhalation BID 0RF potassium chloride 20 mEq tablet extended release 20 meq PO DAILY 0RF furosemide 40 mg tablet 40 mg PO QAM 0RF metoprolol succinate 25 mg tablet extended release 24 hr 12.5 mg PO DAILY Qty: 30 2RF acetaminophen 500 mg tablet 1,000 mg PO TID PRN (Reason: Pain) 0RF Jardiance 25 mg tablet 25 mg PO QAM 0RF cetirizine 10 mg tablet 10 mg PO DAILY PRN (Reason: Allergy Symptoms) 0RF insulin aspart U-100 [Novolog Flexpen U-100 Insulin] 100 unit/mL (3 mL) insulin pen See Rx Instructions .ROUTE .COMPLEX 0RF Rx Instructions: sliding scale tid prn ipratropium-albuterol 0.5 mg-3 mg(2.5 mg base)/3 mL solution for nebulization 3 ml INHALATION QID PRN (Reason: Shortness Of Breath) 0RF metolazone 2.5 mg tablet 2.5 mg PO QAM 0RF Rx Instructions: 30 minutes before morning Lasix dose albuterol sulfate 2.5 mg /3 mL (0.083 %) Solution For Nebulization 2.5 mg INHALATION Q4H PRN (Reason: Shortness Of Breath) 0RF Senna-S 8.6-50 mg Tablet 1 tab PO BEDTIME 0RF gabapentin 400 mg Capsule 400 mg PO Q8H 0RF Vitamin D3 25 mcg (1,000 unit) Capsule 3,000 unit PO BEDTIME 0RF naloxone 4 mg/actuation [place],Non-Aerosol 4 mg INTRANASAL Q2M PRN (Reason: overdose) 0RF Rx Instructions: spray 1 dose into ONE nostril; alternate nostrils w each dose until help arrives Ozempic 0.25 mg or 0.5 mg(2 mg/1.5 mL) Pen Injector 1 mg SUBCUT Q7D 0RF Rx Instructions: on fridays ketoconazole 2 % shampoo 1 applic topical .2 x weekly PRN (Reason: unknown) 0RF Rx Instructions: Lather into scalp 2-3 times weekly. Allow to sit on scalp for 5 minutes before rinsing. 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
--- NOTE | 2022-01-31 17:56 | PM.HP ---
Providers/Chief Complaint Primary Care Provider: Karla Ryan MD Chief Complaint: low BP History of Present Illness Param Tejada is a 56 year old male with history of reduced ejection fraction/cardiomyopathy status post AICD placement, has been never on dialysis in the past, lives alone, presented to the hospital for generalized weakness and fatigue. Patient stating that for last few weeks he has not been feeling well, he has been very lethargic and fatigued decided to go to the [place] who recommended him to go to the ER for further evaluation. In the ER he is not actively having any chest pain however endorsing shortness of breath on exertion, no fever diarrhea vomiting. He is compliant with his medications, he has been diagnosed with hyperkalemia, pseudohyponatremia, hyperglycemia, his rhythm is aberrant conduction with tachycardia wide QRS however he is not symptomatic Potassium 2.7 which is repleted Check magnesium level First troponin 82, second troponin 89 clinical signs of fluid overload however BNP is 1400 Patient is full code In the ER he was given metoprolol, fluids and potassium supplementation, no insulin probably because of low potassium Review of Systems Const: Reports: chills, body aches, change in appetite, change in weight and malaise Eyes: Denies: change in vision ENMT: Denies: throat pain Card: Denies: chest pain Resp: Reports: dyspnea GI: Denies: abdominal pain : Denies: flank pain or urinary dribbling Musc: Denies: neck pain Skin/Breast: Denies: new lesions Neuro: Denies: headache(s) Psych: Denies: anxiety Endo: Denies: polyuria Ruben/Lymph: Denies: easy bruising All/Imm: Denies: urticaria Medications/Allergies Home Medications Medication Instructions Recorded Confirmed Last Taken Type acetaminophen 500 mg tablet 1,000 mg PO TID PRN 11/29/20 01/31/22 Unknown History aspirin 81 mg tablet,delayed 81 mg PO QAM 11/29/20 01/31/22 01/31/22 09:00 History release atorvastatin 80 mg tablet 80 mg PO QPM 11/29/20 01/31/22 01/30/22 History cetirizine 10 mg tablet 10 mg PO DAILY PRN 11/29/20 01/31/22 01/31/22 History empagliflozin 25 mg tablet 25 mg PO QAM 11/29/20 01/31/22 01/31/22 09:00 History (Jardiance) insulin aspart U-100 100 unit/mL See Rx Instructions .ROUTE .COMPLEX 11/29/20 01/31/22 Unknown History (3 mL) subcutaneous pen (Novolog Flexpen U-100 Insulin aspart) ipratropium 0.5 mg-albuterol 3 mg 3 ml INHALATION QID PRN 11/29/20 01/31/22 Unknown History (2.5 mg base)/3 mL nebulization soln metformin 500 mg tablet 500 mg PO BID 11/29/20 01/31/22 01/31/22 History methocarbamol 500 mg tablet 1,000 mg PO BEDTIME 11/29/20 01/31/22 01/30/22 History nitroglycerin 0.4 mg sublingual 0.4 mg SUBLINGUAL Q5M PRN 11/29/20 01/31/22 Unknown History tablet ticagrelor 90 mg tablet (Brilinta) 90 mg PO BID 11/29/20 01/31/22 01/31/22 09:00 History tiotropium bromide 2.5 2 puff INHALATION DAILY 11/29/20 01/31/22 08/04/21 History mcg/actuation mist for inhalation (Spiriva Respimat) tramadol 50 mg tablet 50 - 100 mg PO TID PRN 11/29/20 01/31/22 Unknown History potassium chloride 20 mEq 20 meq PO DAILY tab 03/02/21 01/31/22 01/31/22 History tablet,extended release furosemide 40 mg tablet 40 mg PO QAM tab 03/09/21 01/31/22 01/31/22 History metolazone 2.5 mg tablet 2.5 mg PO QAM 08/04/21 01/31/22 01/31/22 History albuterol sulfate 90 mcg/actuation 2 puff INHALATION QID PRN 12/12/21 01/31/22 Unknown History aerosol inhaler metoprolol succinate 25 mg 12.5 mg PO DAILY #30 tab 12/20/21 01/31/22 1 Week Ago Rx tablet,extended release 24 hr ~01/24/22 pt states dced last fluticasone 250 mcg-salmeterol 50 1 inh INHALATION BID 01/25/22 01/31/22 Unknown History mcg/dose blistr powdr for inhalation (Wixela Inhub) albuterol sulfate 2.5 mg INHALATION Q4H PRN 01/31/22 01/31/22 Unknown History cholecalciferol (vitamin D3) 25 3,000 unit PO BEDTIME 01/31/22 01/31/22 01/30/22 History mcg (1,000 unit) capsule (Vitamin D3) clobetasol 0.05 % scalp solution 1 applic TOPICAL DAILY PRN 01/31/22 01/31/22 Unknown History gabapentin 400 mg capsule 400 mg PO Q8H 01/31/22 01/31/22 01/31/22 09:00 History insulin glargine 100 unit/mL (3 68 unit SUBCUT BEDTIME 01/31/22 01/31/22 01/30/22 History mL) subcutaneous pen (Lantus Solostar U-100 Insulin) ketoconazole 2 % shampoo 1 applic TOPICAL .2 x weekly PRN 01/31/22 01/31/22 Unknown History ketoconazole 2 % topical cream 1 applic TOPICAL BID PRN 01/31/22 01/31/22 Unknown History naloxone 4 mg/actuation nasal spray 4 mg INTRANASAL Q2M PRN 01/31/22 01/31/22 Unknown History semaglutide (Ozempic) 1 mg SUBCUT Q7D 01/31/22 01/31/22 Unknown History sennosides 8.6 mg-docusate sodium 1 tab PO BEDTIME 01/31/22 01/31/22 Unknown History 50 mg tablet (Senna-S) Allergies Allergy/AdvReac Type Severity Reaction Status Date / Time Sulfa (Sulfonamide Allergy ALGY-Anaphy Verified 01/31/22 15:35 Antibiotics) laxis PFSH Acute PFSH: Medical History CAD (coronary artery disease) CHF (congestive heart failure) Chronic hypercapnic respiratory failure 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 2 diabetes mellitus COPD (chronic obstructive pulmonary disease) Hyperlipidemia Hypertension Hypoxia 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 dependent diabetes mellitus Ischemic cardiomyopathy Morbid obesity Obstructive sleep apnea ST elevation myocardial infarction (STEMI) of inferior wall Tobacco abuse Surgical History (Updated 01/31/22 @ 19:07 by Edwige Haley MD) History of cardiac defibrillator placement History of coronary artery stent placement -hx of CAD with inferior wall [place] s/p RCA stent, LAD stent History of left knee replacement S/P knee replacement Family History Denies family history of CAD (coronary artery disease) Social History Smoking and tobacco status: former smoker Quit status (tobacco): has quit using tobacco Year quit tobacco: 2020 - 1.5 PPD x 40 YEars Second hand smoke exposure: No Smoking risk assessment/counseling performed?: No Alcohol intake: never Desire information about alcohol rehabilitation?: No Counseling given: No Desire information about substance/drug rehabilitation?: No Counseling given: No Lives independently: Yes Household members: none Marital status: Single service: Yes Current occupational status: disabled Pets and animals: Yes Pets & animals: dog(s) History of recent travel: No Current gender identity: Male Vitals/I&O/Wt Last Vital Signs Temp 98 F 01/31/22 13:28 Pulse 115 H 01/31/22 16:20 Resp 15 01/31/22 16:20 BP 160/66 01/31/22 13:54 Pulse Ox 94 01/31/22 16:20 Weight last 48 hrs Weight 104.326 kg Physical Exam Narrative: Patient sitting at the bedside No active chest pain Hemodynamically stable Right QRS tachyarrhythmia Repeat EKG showed sinus tachycardia with right bundle branch block Wide QRS No active chest pain No active signs of respiratory distress Satting well on room air No JVD Clinically does not look fluid overloaded Nonfocal neuro exam Abdomen is soft Skin tattoos Data : 01/31/22 15:00 01/31/22 15:36 A&P Assessment and plan (1) Ischemic cardiomyopathy: Status: Acute (2) Hyponatremia: Status: Acute (3) Hypokalemia: Status: Acute (4) Personal history of nicotine dependence: Status: Acute (5) Hypertension: Status: Acute (6) Diabetes: Status: Acute (7) CHF (congestive heart failure): Status: Acute (8) Ischemic cardiomyopathy: Status: Acute (9) ICD (implantable cardioverter-defibrillator) in place: Status: Acute Plan Generalized weakness and fatigue Hypokalemia Pseudohyponatremia Hyperglycemia Hyperglycemia, check serum ketones He is not acidotic Check hemoglobin A1c Wide QRS tachyarrhythmia Sinus tachycardia, atrial flutter with bundle branch block It is not V. tach Replenish potassium, check magnesium no active chest pain Hemodynamically stable Ischemic cardiomyopathy reduced action fraction heart failure status post AICD placement Currently looks compensated however BNP is high I would like to treat him with IV fluids for now because of hypoglycemia Monitor for signs of fluid overload Hypokalemia, repleted Pseudohyponatremia related to hyperglycemia Patient is full code Cardiac consistent carb diet DVT prophylaxis Lovenox Attestations Medical Necessity Statement*: Anticipating discharge within 48 hours will need electrolyte replenishment Time Spent in Patient Care: 35 Coding Level of Care Code Acute Platen Builder Up for g Fwd Diagnoses Ischemic cardiomyopathy I25.5 Hyponatremia E87.1 Hypokalemia E87.6 Personal history of nicotine dependence Z87.891 Hypertension I10 Diabetes E11.9 CHF (congestive heart failure) I50.9 Ischemic cardiomyopathy I25.5 ICD (implantable cardioverter-defibrillator) in place Z95.810
[2022-01-31 18:14] LABS: Troponin 5 2HR 89.24 ng/L (0-15)
[2022-01-31 18:16] LABS: Troponin 5 2HR Delta 7.24 ABS# (0-10)
--- NOTE | 2022-01-31 18:16 | ECG_ITS ---
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 Measurements Intervals [place] Rate: 105 P: 47 [place]: 147 QRS: 270 QRSD: 153 T: 78 QT: 407 QTc: 538 Interpretive Statements SINUS TACHYCARDIA WITH OCCASIONAL SUPRAVENTRICULAR PREMATURE COMPLEXES RIGHT AXIS DEVIATION [QRS AXIS > 100] RIGHT BUNDLE BRANCH BLOCK [120+ ms QRS DURATION, UPRIGHT V1, 40+ ms S IN I/aVL/V4/V5/V6] POSSIBLE ANTERIOR MYOCARDIAL INFARCTION , OF INDETERMINATE AGE [30 ms Q WAVE IN V3/V4, OR R < 0.2 mV IN V4] Compared to ECG 01/31/2022 15:27:52 Atrial fibrillation no longer present Myocardial infarct finding still present Electronically Signed On 01-31-2022 22:28:32 CDT by Janina Stuart M.D. [id number]
[2022-01-31 20:28] LABS: Procalcitonin 0.22 ng/mL (0-0.5)
[2022-01-31] MEDS: enoxaparin 40 mg/0.4 mL Syringe SUBCUT (22:10)
[2022-01-31] MEDS: sennosides-docusate Tablet 1 TAB PO (22:10)
[2022-01-31] MEDS: metoprolol succinate ER (24 HR) 25 mg Tablet PO (22:10)
[2022-01-31] MEDS: gabapentin 400 mg Capsule PO (22:10)
--- NOTE | 2022-01-31 22:16 | ECG_ITS ---
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 Measurements Intervals [place] Rate: 80 P: 72 [place]: 161 QRS: -82 QRSD: 166 T: 94 QT: 462 QTc: 535 Interpretive Statements SINUS RHYTHM RIGHT BUNDLE BRANCH BLOCK [120+ ms QRS DURATION, UPRIGHT V1, 40+ ms S IN I/aVL/V4/V5/V6] LEFT ANTERIOR FASCICULAR BLOCK [QRS AXIS <= -45, QR IN I, RS IN II] POSSIBLE ANTERIOR MYOCARDIAL INFARCTION , OF INDETERMINATE AGE [30 ms Q WAVE IN V3/V4, OR R < 0.2 mV IN V4] Compared to ECG 01/31/2022 18:00:48 Left anterior fascicular block now present Sinus tachycardia no longer present Right-axis deviation no longer present Myocardial infarct finding still present Electronically Signed On 01-31-2022 22:32:11 CDT by Janina Stuart M.D. [id number]
--- NOTE | 2022-01-31 22:17 | PC.NURSE ---
ACCUCHECK Accucheck reading for 2100 was 321. Did not cross over from machine to chart
[2022-01-31] MEDS: insulin glargine 100 units/1 mL 68 UNIT SUBCUT (22:18)
[2022-02-01] MEDS: potassium chloride premix 100 ML 25 MEQ IV (00:02)
[2022-02-01 00:03] LABS: SARS Covid-2 Antigen Negative (Negative)
[2022-02-01 00:12] LABS: Estmated Average Glucose 209; Hemoglobin A1C 8.9 % (4.0-6.0)
[2022-02-01] MEDS: sodium chloride 0.9% (100 ml) 100 ML 25 ML (00:27)
[2022-02-01] MEDS: lidocaine 1% INJ 20 mL 5 ML IV (01:02)
[2022-02-01] MEDS: potassium chloride ER 20 mEq Tablet 40 MEQ PO (01:34)
[2022-02-01 01:53] LABS: Add Urine Microscopic? NO; Charge for UA Resulting for Rev
[2022-02-01 02:01] LABS: Bilirubin Urine Neg (Negative); Blood Urine Neg (Negative); Glucose Urine UA 4+ (Normal); Ketones Urine Negative (Negative); Leukocyte Esterase Urine Negative (Negative); Nitrate Urine Negative (Negative); Protein Urine Neg (Negative); Urine Appearance Clear (CLEAR); Urine Color Yellow (Yellow); Urobilinogen Urine Norm (Negative); pH Urine 6.5 (5-7)
[2022-02-01 04:00] VITALS: BP 109/64; PULSE 83; RESP 16; TEMP 36.8; O2SAT 98
--- NOTE | 2022-02-01 05:04 | PC.NURSE ---
Pt lying in bed resting with eyes closed. Resp even and non-labored no distress or sob noted. Pt had no c/o pain or discomfort at the present time. No needs voiced. Call light in reach.
[2022-02-01] MEDS: aspirin 81 mg EC Tablet PO (05:08)
[2022-02-01] MEDS: gabapentin 400 mg Capsule PO (05:08)
[2022-02-01 05:21] LABS: Basophils # 0.1 10^3/uL (0.0-0.1); Basophils % 0.7 %; Eosinophils # 0.4 10^3/uL (0.0-0.8); Eosinophils % 5.5 %; Hematocrit 45.3 % (42.0-52.0); Hemoglobin 14.5 g/dL (11.7-16.6); Lymphocytes # 1.2 10^3/uL (0.8-4.8); Lymphocytes % 16.9 %; Mean Corpuscular Hemoglobin 27.6 pg (28.0-34.0); Mean Corpuscular Volume 86.1 fl (80-94); Mean Platelet Volume 11.4 fL (7.4-10.4); Monocytes # 0.8 10^3/uL (0.2-0.9); Monocytes % 10.8 %; Neutrophils # 4.69 10^3/uL (1.8-7.7); Neutrophils % 65.7 %; Nucleated Red Blood Cells % 0 %; Platelet Count 317 10^3/cmm (130-400); Red Blood Count 5.26 10^6/uL (4.1-5.3); Red Cell Distribution Width 15.6 % (12.1-15.1); White Blood Count 7.1 10^3/uL (4.0-10.0)
[2022-02-01 05:29] LABS: Ketone (Acetest) Serum Negative (Negative)
[2022-02-01 05:36] LABS: Blood Urea Nitrogen 28 mg/dL (6-20); Calcium 9.5 mg/dL (8.5-10.5); Carbon Dioxide 27 mmol/L (22-29); Chloride 93 mmol/L (98-107); Glucose 154 mg/dL (65-115); Magnesium 2.5 mg/dL (1.7-2.3); Osmolality Calculated 287 mOsm/kg (285-295); Sodium 134 mmol/L (136-145)
[2022-02-01 05:43] LABS: Anion Gap 17.2 (5-19); Potassium 3.2 mmol/L (3.5-5.1)
[2022-02-01 05:47] LABS: Troponin 5 6HR 80.45 ng/L (0-15)
[2022-02-01 05:56] LABS: Troponin 5 6HR Delta -1.55 ng/L (0-12)
--- NOTE | 2022-02-01 07:10 | PC.NURSE ---
Bedside report received from JONO Villagomez.
[2022-02-01 07:28] VITALS: BP 101/67; PULSE 77; RESP 16; TEMP 36.4; O2SAT 93
[2022-02-01 08:00] VITALS: PULSE 101; RESP 17; O2SAT 92
[2022-02-01] MEDS: ticagrelor 90 mg Tablet PO (08:40)
[2022-02-01] MEDS: insulin lispro 100 unit/1 mL SUBCUT ×2 (08:40)
[2022-02-01] MEDS: potassium chloride ER 20 mEq Tablet PO (08:41)
--- NOTE | 2022-02-01 10:38 | PC.CHAP ---
Pastoral Care Encounter/Spiritual Assessment Type of Contact [] Declined rig supervisor visit [] Patient/Family/Request visit [] Outpatient visit [] Follow-up visit [] Physician referral [] Code/Alert [x] Routine visit [] Staff referral [] Actively dying [] Patient sleeping [] Family support [] [] Out of room [] Palliative care [] [x] Receiving care in room [] Pre-surgical visit [] Trauma [] Long length of stay [] ICU visit [] Other: Relational/Emotional Strength [x] Patient feels connected with others/family/visitors/staff [] Distress [] Loneliness/isolation [] Abandonment Spirituality of Patient [x] Person of Lo [] Attends Rastafarian of their Lo [x] Believes in Prayer [] Reads Bible or Episcopalian materials [] There are Spiritual issues to be addressed Cold Roll Catcher Interventions [x] Prayer [x] Active listening [x] Non-anxious presence [x] Spiritual/emotional support [] Crisis/trauma care [x] Spiritual counseling [] Bereavement support [] Provided bereavement packet [] Provided Bible/devotional materials [] Provided toy/stuffed animal, coloring book to patient or family member [] Provided Communion [] Anointing/[place] [] Salvation [x] Completed spiritual assessment [] Other: Impact on Illness or Injury [] Angry [] Fearful [x] Anxious [] Often cries [] Exhaustion [] Unable to work [] Unable to attend caodaism [] Unable to walk/stand [] Unable to read [] Unable to drive [] Unable to eat/drink [] Unable to sleep [] Unable to be with family [] Patient intubated [] Other: Summary waiting for surgery has a good attitude4 well go home at some point Time spent with patient 10 mins
--- NOTE | 2022-02-01 11:25 | P.DS_ITS ---
Discharge Providers Date of Admission: 01/31/22 16:49 Date of Discharge: February 01, 2022 Attending Provider at Admission: Tri Dunne MD Attending Provider at Discharge: Edwige Haley MD Primary Care Provider: Karla Ryan MD Diagnoses at Discharge Discharge Diagnosis (1) Ischemic cardiomyopathy: Status: Acute (2) Hyponatremia: Status: Acute (3) Hypokalemia: Status: Acute (4) Personal history of nicotine dependence: Status: Acute (5) Hypertension: Status: Acute (6) Diabetes: Status: Acute (7) CHF (congestive heart failure): Status: Acute (8) Ischemic cardiomyopathy: Status: Acute (9) ICD (implantable cardioverter-defibrillator) in place: Status: Acute Reason for Visit Reason for Visit: low BP Hospital Course Hospital Course 56-year-old male with history of reduced action fraction heart failure status post AICD, diabetes, chronic kidney disease, presented with chief complaint generalized weakness and fatigue. Initial work-up in the ER revealed hyperglycemia, pseudohyponatremia and low potassium. He was showing wide QRS tachycardia on EKG which is consistent with right bundle branch block with sinus tach. He remained hemodynamically stable no shortness of breath or chest pain. No presyncopal events. Next day after replenishment of electrolytes and improvement in blood sugar with IV fluids his energy and mood improved. His hemoglobin A1c is 8.9. He is already on Ozempic and insulin. I have held his metformin at discharge, GFR is 77 I would like his PCP to reevaluate indication for metformin. His magnesium is 2.5 potassium is 3.2 at discharge. I have counseled patient to take extra dose of potassium for next few days he does have enough supply of potassium at home. He remained hemodynamically stable, no fever or leukocytosis. COVID negative. I have asked patient to hold his Lasix and metolazone for next few days Physical Exam Narrative: Patient is sitting comfortably in his bed Saturating well on room air No signs of fluid overload Clinically doing much better as compared to yesterday Nonfocal neuro exam No audible stridor or wheezing Abdomen soft No signs of edema Discharge Data Studies Completed and Pending Completed Studies During Hospitalization Category Date Time Status XR chest 1V portable [id number] Stat Exams 01/31/22 14:27 Completed Radiology Impressions Chest X-Ray 01/31/22 14:27 IMPRESSION: 1. Mild cardiac enlargement unchanged. No acute process noted. Laboratory Results WBC 7.1 10^3/uL (4.0-10.0) 02/01/22 05:04 Corrected WBC Cancelled 01/31/22 14:23 RBC 5.26 10^6/uL (4.1-5.3) 02/01/22 05:04 Hgb 14.5 g/dL (11.7-16.6) 02/01/22 05:04 Hct 45.3 % (42.0-52.0) 02/01/22 05:04 MCV 86.1 fl (80-94) D 02/01/22 05:04 MCH 27.6 pg (28.0-34.0) L 02/01/22 05:04 MCHC 32.0 g/dL (30.0-36.0) D 02/01/22 05:04 RDW 15.6 % (12.1-15.1) H 02/01/22 05:04 Plt Count 317 10^3/cmm (130-400) 02/01/22 05:04 MPV 11.4 fL (7.4-10.4) H 02/01/22 05:04 Gran % Cancelled 01/31/22 14:23 Neut % (Auto) 65.7 % 02/01/22 05:04 Lymph % (Auto) 16.9 % 02/01/22 05:04 [place] % (Auto) 10.8 % 02/01/22 05:04 Eos % (Auto) 5.5 % 02/01/22 05:04 Baso % (Auto) 0.7 % 02/01/22 05:04 Neut # (Auto) 4.69 10^3/uL (1.8-7.7) 02/01/22 05:04 Lymph # (Auto) 1.2 10^3/uL (0.8-4.8) 02/01/22 05:04 [place] # (Auto) 0.8 10^3/uL (0.2-0.9) 02/01/22 05:04 Eos # (Auto) 0.4 10^3/uL (0.0-0.8) 02/01/22 05:04 Baso # (Auto) 0.1 10^3/uL (0.0-0.1) 02/01/22 05:04 Absolute Gran (auto) Cancelled 01/31/22 14:23 Nucleated RBC % (auto) 0 % 02/01/22 05:04 Nucleated RBCs # 0.0 /100WBC 02/01/22 05:04 Sodium 134 mmol/L (136-145) L 02/01/22 05:04 Potassium 3.2 mmol/L (3.5-5.1) L 02/01/22 05:04 Chloride 93 mmol/L (98-107) L 02/01/22 05:04 Carbon Dioxide 27 mmol/L (22-29) 02/01/22 05:04 Anion Gap 17.2 (5-19) 02/01/22 05:04 BUN 28 mg/dL (6-20) H 02/01/22 05:04 Creatinine 1.0 mg/dL (0.7-1.2) 02/01/22 05:04 GFR Calculation 77.0 mL/min (90-130) L 02/01/22 05:04 Glucose 154 mg/dL (65-115) H 02/01/22 05:04 Estimat Average Glucose 209 01/31/22 15:00 Hemoglobin A1c 8.9 % (4.0-6.0) H 01/31/22 15:00 Calculated Osmolality 287 mOsm/kg (285-295) 02/01/22 05:04 Calcium 9.5 mg/dL (8.5-10.5) 02/01/22 05:04 Magnesium 2.5 mg/dL (1.7-2.3) H 02/01/22 05:04 Total Bilirubin 0.4 mg/dL (0.15-1.2) 01/31/22 15:36 AST 16 U/L (0-40) 01/31/22 15:36 ALT 18 U/L (0-41) 01/31/22 15:36 Alkaline Phosphatase 124 IU/L (40-130) 01/31/22 15:36 Troponin T Baseline 82 ng/L (0-15) H 01/31/22 15:36 Troponin T 120 Minute 89.24 ng/L (0-15) H 01/31/22 17:40 Delta Troponin T 7.24 ABS# (0-10) 01/31/22 17:40 Troponin T Hi Sens 6Hr 80.45 ng/L (0-15) H 02/01/22 05:04 Troponin T Hi Sens 6Hr Delta -1.55 ng/L (0-12) L 02/01/22 05:04 NT-Pro-B Natriuret Pep 1468 pg/mL (0-125) H 01/31/22 15:36 Total Protein 7.8 g/dL (6.6-8.7) 01/31/22 15:36 Albumin 3.7 g/dL (3.5-5.2) 01/31/22 15:36 Globulin 4.1 g/dL (1.3-4.6) 01/31/22 15:36 Procalcitonin 0.22 ng/mL (0-0.5) 01/31/22 17:40 Urine Color Yellow (Yellow) 02/01/22 01:40 Urine Appearance Clear (CLEAR) 02/01/22 01:40 Urine pH 6.5 (5-7) 02/01/22 01:40 Ur Specific [place] 1.010 (1.005-1.030) 02/01/22 01:40 Urine Protein Neg (Negative) 02/01/22 01:40 Urine Glucose (UA) 4+ (Normal) H 02/01/22 01:40 Urine Ketones Negative (Negative) 02/01/22 01:40 Urine Blood Neg (Negative) 02/01/22 01:40 Urine Nitrate Negative (Negative) 02/01/22 01:40 Urine Bilirubin Neg (Negative) 02/01/22 01:40 Urine Urobilinogen Norm mg/dL (Negative) 02/01/22 01:40 Ur Leukocyte Esterase Negative (Negative) 02/01/22 01:40 Serum Ketones Negative (Negative) 02/01/22 05:04 SARS-CoV-2 Ag (Rapid) Negative (Negative) 01/31/22 23:44 Vitals Last Vital Signs Temp 97.6 F 02/01/22 07:28 Pulse 101 H 02/01/22 08:00 Resp 17 02/01/22 08:00 BP 101/67 02/01/22 07:28 Pulse Ox 92 02/01/22 08:00 Discharge Plan Discharge Patient Disposition: Home Condition: Stable Prescriptions: Continued atorvastatin 80 mg tablet 80 mg PO QPM 0RF aspirin 81 mg tablet,delayed release (DR/EC) 81 mg PO QAM 0RF methocarbamol 500 mg tablet 1,000 mg PO BEDTIME 0RF nitroglycerin 0.4 mg tablet, sublingual 0.4 mg SUBLINGUAL Q5M PRN (Reason: Chest Pain) 0RF Brilinta 90 mg tablet 90 mg PO BID 0RF tramadol 50 mg tablet 50 - 100 mg PO TID PRN (Reason: Pain) 0RF albuterol sulfate 90 mcg/actuation HFA aerosol inhaler 2 puff INHALATION QID PRN (Reason: Shortness Of Breath) 0RF Spiriva Respimat 2.5 mcg/actuation mist 2 puff INHALATION DAILY 0RF fluticasone propion-salmeterol [Wixela Inhub] 250-50 mcg/dose blister with device 1 inh inhalation BID 0RF potassium chloride 20 mEq tablet extended release 20 meq PO DAILY 0RF metoprolol succinate 25 mg tablet extended release 24 hr 12.5 mg PO DAILY Qty: 30 2RF acetaminophen 500 mg tablet 1,000 mg PO TID PRN (Reason: Pain) 0RF Jardiance 25 mg tablet 25 mg PO QAM 0RF cetirizine 10 mg tablet 10 mg PO DAILY PRN (Reason: Allergy Symptoms) 0RF insulin aspart U-100 [Novolog Flexpen U-100 Insulin] 100 unit/mL (3 mL) insulin pen See Rx Instructions .ROUTE .COMPLEX 0RF Rx Instructions: sliding scale tid prn ipratropium-albuterol 0.5 mg-3 mg(2.5 mg base)/3 mL solution for nebulization 3 ml INHALATION QID PRN (Reason: Shortness Of Breath) 0RF albuterol sulfate 2.5 mg /3 mL (0.083 %) Solution For Nebulization 2.5 mg INHALATION Q4H PRN (Reason: Shortness Of Breath) 0RF Senna-S 8.6-50 mg Tablet 1 tab PO BEDTIME 0RF gabapentin 400 mg Capsule 400 mg PO Q8H 0RF Vitamin D3 25 mcg (1,000 unit) Capsule 3,000 unit PO BEDTIME 0RF naloxone 4 mg/actuation [place],Non-Aerosol 4 mg INTRANASAL Q2M PRN (Reason: overdose) 0RF Rx Instructions: spray 1 dose into ONE nostril; alternate nostrils w each dose until help arrives Ozempic 0.25 mg or 0.5 mg(2 mg/1.5 mL) Pen Injector 1 mg SUBCUT Q7D 0RF Rx Instructions: on fridays ketoconazole 2 % shampoo 1 applic topical .2 x weekly PRN (Reason: unknown) 0RF Rx Instructions: Lather into scalp 2-3 times weekly. Allow to sit on scalp for 5 minutes before rinsing. ketoconazole 2 % cream 1 applic topical BID PRN (Reason: unknown) 0RF Rx Instructions: to red areas in armpits prn clobetasol 0.05 % solution 1 applic topical DAILY PRN (Reason: unknown) 0RF Rx Instructions: thin film to itchy areas on scalp prn Lantus Solostar U-100 Insulin 100 unit/mL (3 mL) insulin pen 68 unit SUBCUT BEDTIME 0RF Held metformin 500 mg tablet 500 mg PO BID 0RF Hold Instructions: until cleared by pcp dont take metformin in CKD it shud be used cautiously furosemide 40 mg tablet 40 mg PO QAM 0RF Hold Instructions: Resume on 02/05/22. metolazone 2.5 mg tablet 2.5 mg PO QAM 0RF Hold Instructions: Resume on 02/05/22. Rx Instructions: 30 minutes before morning Lasix dose Discharge Orders: Discharge Order (Routine); Ordered 02/01/22 Ordered By: Edwige Haley Referrals: Karla Ryan MD [Primary Care Provider] - 4-7 days Discharge Diet: Cardiac Discharge Activity: Increase activity as tolerated Patient Instructions: Opioid Safety Discharge Attestations Time Spent in Discharge Care*: less than 30 min Quality Metrics Clinical Quality Measures [ No reported AMI, CVA or VTE this stay] Coding Level of Care Code Acute g FW DC note Diagnoses Ischemic cardiomyopathy I25.5 Hyponatremia E87.1 Hypokalemia E87.6 Personal history of nicotine dependence Z87.891 Hypertension I10 Diabetes E11.9 CHF (congestive heart failure) I50.9 Ischemic cardiomyopathy I25.5 ICD (implantable cardioverter-defibrillator) in place Z95.810
[2022-02-01 12:00] VITALS: BP 126/85; PULSE 77; RESP 14; TEMP 36.6; O2SAT 96
== END 2022-02-01 12:56 | disposition home or self-care (01) ==
LOC: ER 17:55 → MEDSURG 20:34
PROVIDERS: Admitting Provider Internal Medicine; Emergency Provider Family Medicine; PCP Family Medicine; Visit Provider Internal Medicine
DX: I25.5 Ischemic cardiomyopathy (principal); E87.1 Hypo-osmolality and hyponatremia; E87.6 Hypokalemia; Z87.891 Personal history of nicotine dependence; Z95.810 Presence of automatic (implantable) cardiac defibrillator; E11.22 Type 2 diabetes mellitus with diabetic chronic kidney disease; I13.0 Hypertensive heart and chronic kidney disease with heart failure and stage 1 through stage 4 chronic kidney disease, or unspecified chronic kidney disease; N18.2 Chronic kidney disease, stage 2 (mild); I50.9 Heart failure, unspecified; I25.10 Atherosclerotic heart disease of native coronary artery without angina pectoris; Z79.4 Long term (current) use of insulin; E66.01 Morbid (severe) obesity due to excess calories; Z68.38 Body mass index [BMI] 38.0-38.9, adult; G47.33 Obstructive sleep apnea (adult) (pediatric); I25.2 Old myocardial infarction
CPT/HCPCS: 36415; 71045; 80048; 80053; 81003; 82009; 83036; 83735; 83880; 84145; 84484; 85025; 87426; 93005; 96365; 96366; 96372; 99285; G0378; J1650; J1815; J3480; J7040

== ENCOUNTER 2022-02-09 06:00 | Outpatient (RCR) | payer OTHER, SELFPAY | END 2022-03-11 23:59 | disposition home or self-care (01) | LOC: SPT 06:00 | PROVIDERS: PCP Family Medicine; Referring Provider Orthopaedic Surgery; Visit Provider Orthopaedic Surgery | DX: Z47.1 Aftercare following joint replacement surgery (principal); Z96.652 Presence of left artificial knee joint | CPT/HCPCS: 97110 ==

== ENCOUNTER → 2022-02-09 10:41 | Outpatient (BNVA) | payer OTHER, SELFPAY | PROVIDERS: PCP Family Medicine; Visit Provider Internal Medicine Cardiovascular Disease | DX: Z45.02 Encounter for adjustment and management of automatic implantable cardiac defibrillator (principal) | CPT/HCPCS: 93282; 97110 ==

== ENCOUNTER → 2022-02-16 09:13 | Outpatient (BNVA) | payer OTHER, SELFPAY | PROVIDERS: PCP Family Medicine; Visit Provider Internal Medicine Cardiovascular Disease | DX: I13.0 Hypertensive heart and chronic kidney disease with heart failure and stage 1 through stage 4 chronic kidney disease, or unspecified chronic kidney disease (principal); E11.22 Type 2 diabetes mellitus with diabetic chronic kidney disease; N18.2 Chronic kidney disease, stage 2 (mild); I50.9 Heart failure, unspecified; N17.9 Acute kidney failure, unspecified; Z87.891 Personal history of nicotine dependence; Z79.4 Long term (current) use of insulin; I25.10 Atherosclerotic heart disease of native coronary artery without angina pectoris; J44.9 Chronic obstructive pulmonary disease, unspecified; E78.5 Hyperlipidemia, unspecified; E87.6 Hypokalemia; E87.1 Hypo-osmolality and hyponatremia; Z95.810 Presence of automatic (implantable) cardiac defibrillator; I25.5 Ischemic cardiomyopathy; E66.01 Morbid (severe) obesity due to excess calories; Z68.38 Body mass index [BMI] 38.0-38.9, adult; G47.33 Obstructive sleep apnea (adult) (pediatric) | CPT/HCPCS: 99214 ==

== ENCOUNTER 2022-03-09 07:27 | Outpatient (CLI) | payer OTHER, SELFPAY ==
--- NOTE | 2022-03-09 07:00 | XR_ITS ---
WS: [id number] Exam: XR KUB [id number] Date/Time of Exam: 03/09/2022 7:40 AM Reason For Exam: Calculus of Kidney No bowel obstruction or free air. Numerous calcifications superimpose the left renal silhouette and l ikely represent multiple renal calculi. 1.6 cm circular eggshell type calcification superimposes the right SI joint and is nonspecific. No sign of organ enlargement. Regional bony elements are intact. XR/XR KUB [id number] IMPRESSION: 1. No acute abdominal finding. 2. Multiple calcifications superimpose left kidney and most likely represent mu ltiple renal calculi.
== END 2022-03-09 07:28 | disposition home or self-care (01) ==
PROVIDERS: PCP Family Medicine; Visit Provider Nurse Practitioner Family
DX: N20.0 Calculus of kidney (principal)
CPT/HCPCS: 74018; 99203

== ENCOUNTER 2022-04-10 13:10 | Outpatient (CLI) | payer OTHER, SELFPAY ==
--- NOTE | 2022-04-10 13:15 | CT_ITS ---
WS: [id number] LDCT LUNG CANCER SCREENING TECHNIQUE: Noncontrast CT of the chest with coronal and sagittal reformatted images. CLINICAL INFORMATION: Lung cancer screening COMPARISON: CT chest July 18, 2020 DLP: 74.68 mGy.cm DIvol: Mean CTDIvol: 1.60 (mGy) All CT scans at [facility] use at least one of these dose optimization techniques: automat ed exposure control; mA and/or kV adjustment per patient size (includes targeted exams where dose is matched to clinical indication); or iterative reconstruction. FINDINGS: Moderate chronic emphysematous changes. Subsegmental atelectasis in the RIGHT upper lobe. A few tiny 2-3 mm pulmonary nodules. No other suspicious pulmonary parenchymal opacities. Chronic LEFT rib fractures with callus formation. Normal caliber thoracic aorta. Coronary calcification. No axillary lymphadenopathy. No mediastinal or hilar lymphadenopathy. Normal endobronchial tree. Hypertrophic changes thoracic spine. Normal GE junction. CT/CT lung screening [id number] IMPRESSION: LUNG-RADS: 2-Benign Appearance or Behavior FOLLOW UP: 12 Month: Continue annual screening with LDCT
== END 2022-04-10 13:11 | disposition home or self-care (01) ==
LOC: RAD 13:11
PROVIDERS: PCP Family Medicine; Visit Provider Internal Medicine Critical Care Medicine
DX: Z12.2 Encounter for screening for malignant neoplasm of respiratory organs (principal); Z87.891 Personal history of nicotine dependence
CPT/HCPCS: 71271

== ENCOUNTER → 2022-05-08 10:53 | Outpatient (BNVA) | payer OTHER, SELFPAY | PROVIDERS: PCP Family Medicine; Referring Provider Family Medicine; Visit Provider Internal Medicine | DX: E11.40 Type 2 diabetes mellitus with diabetic neuropathy, unspecified (principal); E11.59 Type 2 diabetes mellitus with other circulatory complications; E78.5 Hyperlipidemia, unspecified; I25.10 Atherosclerotic heart disease of native coronary artery without angina pectoris; Z79.4 Long term (current) use of insulin; Z79.84 Long term (current) use of oral hypoglycemic drugs; Z87.891 Personal history of nicotine dependence | CPT/HCPCS: 99204 ==

== ENCOUNTER → 2022-05-18 09:28 | Outpatient (BNVA) | payer OTHER, SELFPAY | PROVIDERS: PCP Family Medicine; Visit Provider Internal Medicine Cardiovascular Disease | DX: I13.0 Hypertensive heart and chronic kidney disease with heart failure and stage 1 through stage 4 chronic kidney disease, or unspecified chronic kidney disease (principal); E11.22 Type 2 diabetes mellitus with diabetic chronic kidney disease; N18.2 Chronic kidney disease, stage 2 (mild); I50.9 Heart failure, unspecified; Z87.891 Personal history of nicotine dependence; Z79.4 Long term (current) use of insulin; Z79.84 Long term (current) use of oral hypoglycemic drugs; Z95.810 Presence of automatic (implantable) cardiac defibrillator; I25.10 Atherosclerotic heart disease of native coronary artery without angina pectoris; J44.9 Chronic obstructive pulmonary disease, unspecified; Z95.1 Presence of aortocoronary bypass graft | CPT/HCPCS: 93282; 99214 ==

== ENCOUNTER → 2022-05-23 08:23 | Outpatient (BNVA) | payer OTHER, SELFPAY | PROVIDERS: PCP Family Medicine; Visit Provider Internal Medicine | DX: E11.22 Type 2 diabetes mellitus with diabetic chronic kidney disease (principal); E11.649 Type 2 diabetes mellitus with hypoglycemia without coma; N18.2 Chronic kidney disease, stage 2 (mild); E78.5 Hyperlipidemia, unspecified; E66.01 Morbid (severe) obesity due to excess calories; Z79.4 Long term (current) use of insulin; Z79.84 Long term (current) use of oral hypoglycemic drugs; Z87.891 Personal history of nicotine dependence; Z68.39 Body mass index [BMI] 39.0-39.9, adult | CPT/HCPCS: 99214 ==

== ENCOUNTER 2022-06-09 08:43 | Emergency (ER) | payer OTHER, SELFPAY ==
[2022-06-09 08:56] VITALS: BP 128/80; PULSE 83; RESP 14; TEMP 35.6; O2SAT 96; BMI 39.9
--- NOTE | 2022-06-09 09:12 | W.ED.GENADLT ---
HPI - General Adult General: Chief complaint: General Medical Stated complaint: Pace maker keeps going off Time Seen by Provider: 06/09/22 09:08 History of Present Illness: 57-year-old male presents for a pacemaker check. Patient reports his pacemaker been alarming since around 230 this morning. Patient states that it just keeps going on and off but the alarm. Patient does not have any complaints otherwise. Patient reports he had it checked 3 weeks ago and everything was fine. No other systemic complaints. Review of Systems General: Reports: 10 or more systems reviewed and unremarkable except in HPI and below Const: Denies: fever(s) Card: Reports: other (Pacemaker alarming) [facility] ED PFSH: Medical History CAD (coronary artery disease) CHF (congestive heart failure) Chronic hypercapnic respiratory failure 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 2 diabetes mellitus COPD (chronic obstructive pulmonary disease) Diabetes Hyperlipidemia Hypertension Hypertension Hypokalemia Hyponatremia Hypoxia 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 dependent diabetes mellitus Ischemic cardiomyopathy Ischemic cardiomyopathy Morbid obesity Obstructive sleep apnea Personal history of nicotine dependence Renal calculus ST elevation myocardial infarction (STEMI) of inferior wall Tobacco abuse Surgical History History of cardiac defibrillator placement History of coronary artery stent placement -hx of CAD with inferior wall OK s/p RCA stent, LAD stent History of left knee replacement S/P knee replacement Family History Father No problems noted. Mother No problems noted. Denies family history of CAD (coronary artery disease) Social History Smoking and tobacco status: former smoker Alcohol intake: never Marital status: Single Current occupational status: disabled History of recent travel: No Physical Exam Const: COMMON NORMALS: no acute distress and patient oriented x3 Chest: CHEST: Yes other (Pacemaker left chest wall) Resp: COMMON NORMALS: normal respiratory effort, No retractions, No use of accessory muscles and clear to auscultation bilaterally AUSCULTATION: clear to auscultation bilaterally Cardio: COMMON NORMALS: regular rate and regular rhythm RATE: regular rate RHYTHM: regular rhythm GI: COMMON NORMALS: Soft to palpation and non-tender PALPATION: Yes Soft to palpation Extremity: COMMON NORMALS: normal to inspection, full ROM, capillary refill normal and no clubbing, cyanosis or edema Neuro: COMMON NORMALS: patient oriented x3, moves all extremities, no focal motor deficits and no sensory deficits noted Psych: COMMON NORMALS: mental status grossly normal, Normal thought process present and cooperative THOUGHT PROCESS: Normal thought process present Skin: COMMON NORMALS: no rashes or lesions noted and no wounds GENERAL SKIN EXAM: no rashes or lesions noted Course Vital Signs: Vital signs: Vital Signs Temperature 96.1 F L 06/09/22 08:56 Pulse Rate 83 06/09/22 11:11 Respiratory Rate 14 06/09/22 11:11 Blood Pressure 128/80 06/09/22 11:11 Pulse Oximetry 96 06/09/22 11:11 Oxygen Delivery Me thod 06/09/22 08:56 MDM - General Adult Medical Decision Making Patient's pacemaker check shows a right ventricular lead and impedance warning. Called and discussed with Dr. Schmitt operations intelligence superintendent on-call. They will have him follow-up Saturday for further pacemaker interrogation, evaluation and treatment as indicated. Patient stable and discharged home Discharge Plan Discharge Patient Disposition: Home Clinical Impression: Pacemaker lead malfunction Condition: Stable Prescriptions: No Action atorvastatin 80 mg tablet 80 mg PO QPM aspirin 81 mg tablet,delayed release (DR/EC) 81 mg PO QAM metformin 500 mg tablet 500 mg PO BID Hold Instructions: until cleared by pcp dont take metformin in CKD it shud be used cautiously methocarbamol 500 mg tablet 1,000 mg PO BEDTIME nitroglycerin 0.4 mg tablet, sublingual 0.4 mg SUBLINGUAL Q5M PRN (Reason: Chest Pain) Brilinta 90 mg tablet 90 mg PO BID tramadol 50 mg tablet 50 - 100 mg PO TID PRN (Reason: Pain) albuterol sulfate 90 mcg/actuation HFA aerosol inhaler 2 puff INHALATION QID PRN (Reason: Shortness Of Breath) Spiriva Respimat 2.5 mcg/actuation mist 2 puff INHALATION DAILY fluticasone propion-salmeterol [Wixela Inhub] 250-50 mcg/dose blister with device 1 inh inhalation BID furosemide 40 mg tablet 40 mg PO QAM Hold Instructions: Resume on 06/27/22. potassium chloride 20 mEq tablet extended release 40 meq PO DAILY ketoconazole 2 % shampoo 1 applic topical Q14D Qty: 120 0RF Rx Instructions: Lather into scalp and let sit for 5 min prior to rinsing. ketoconazole 2 % cream 1 applic topical BID Qty: 60 3RF Rx Instructions: Apply to affected areas and skin folds x3 weeks. May use as needed for flares. Aquaphor Healing 41 % ointment 1 applic topical DAILY PRN (Reason: dry skin) Qty: 99 3RF Rx Instructions: Apply to areas of dry skin. Zeasorb AF 2 % powder 1 applic topical DAILY Qty: 71 0RF Rx Instructions: Apply to bilateral under arms for prevention once ketoconazole complete. metolazone 2.5 mg tablet 2.5 mg PO QAM Qty: 90 0RF Rx Instructions: 30 minutes before morning Lasix dose metoprolol succinate 25 mg tablet extended release 24 hr 12.5 mg PO DAILY Qty: 45 3RF (DME) Dexcom G6 Sensor Device See Rx Instructions .MEDSUPPLY Qty: 9 3RF Rx Instructions: As directed (DME) Dexcom G6 Computer Lab Assistant Misc See Rx Instructions miscellaneous .MEDSUPPLY Qty: 1 0RF Rx Instructions: As directed (DME) Dexcom G6 Transmitter Device See Rx Instructions .MEDSUPPLY Qty: 3 3RF Rx Instructions: As directed acetaminophen 500 mg tablet 1,000 mg PO TID PRN (Reason: Pain) Jardiance 25 mg tablet 25 mg PO QAM cetirizine 10 mg tablet 10 mg PO DAILY PRN (Reason: Allergy Symptoms) insulin aspart U-100 [Novolog Flexpen U-100 Insulin] 100 unit/mL (3 mL) insulin pen See Rx Instructions .ROUTE .COMPLEX Rx Instructions: sliding scale tid prn ipratropium-albuterol 0.5 mg-3 mg(2.5 mg base)/3 mL solution for nebulization 3 ml INHALATION QID PRN (Reason: Shortness Of Breath) albuterol sulfate 2.5 mg /3 mL (0.083 %) Solution For Nebulization 2.5 mg INHALATION Q4H PRN (Reason: Shortness Of Breath) Senna-S 8.6-50 mg Tablet 1 tab PO BEDTIME gabapentin 400 mg Capsule 400 mg PO Q8H Vitamin D3 25 mcg (1,000 unit) Capsule 3,000 unit PO BEDTIME naloxone 4 mg/actuation [place],Non-Aerosol 4 mg INTRANASAL Q2M PRN (Reason: overdose) Rx Instructions: spray 1 dose into ONE nostril; alternate nostrils w each dose until help arrives Ozempic 0.25 mg or 0.5 mg(2 mg/1.5 mL) Pen Injector 1 mg SUBCUT Q7D Rx Instructions: on fridays Lantus Solostar U-100 Insulin 100 unit/mL (3 mL) insulin pen 68 unit SUBCUT BEDTIME Discharge Orders: Discharge ED (Routine); Ordered 06/09/22 Ordered By: Marcelino Bartholomew Referrals: Karla Ryan MD [Primary Care Provider] - Patient Instructions: Opioid Safety, Pain Management Activity Restrictions/Additional Instructions: Follow-up with the operations intelligence superintendent on Saturday Coding Level of Care Code ED Uncrater for [place] Fwd Exam Comprehensive
[2022-06-09 09:35] VITALS: BP 128/80; PULSE 83; RESP 14; O2SAT 96
[2022-06-09 11:11] VITALS: BP 128/80; PULSE 83; RESP 14; O2SAT 96
== END 2022-06-09 11:12 | disposition home or self-care (01) ==
PROVIDERS: Emergency Provider Student in an Organized Health Care Education/Training Program; PCP Family Medicine
DX: T82.198A Other mechanical complication of other cardiac electronic device, initial encounter (principal); Z79.82 Long term (current) use of aspirin; Z79.84 Long term (current) use of oral hypoglycemic drugs; Z79.4 Long term (current) use of insulin; Z87.891 Personal history of nicotine dependence; I25.10 Atherosclerotic heart disease of native coronary artery without angina pectoris; I13.0 Hypertensive heart and chronic kidney disease with heart failure and stage 1 through stage 4 chronic kidney disease, or unspecified chronic kidney disease; E11.22 Type 2 diabetes mellitus with diabetic chronic kidney disease; N18.2 Chronic kidney disease, stage 2 (mild); I50.9 Heart failure, unspecified; E78.5 Hyperlipidemia, unspecified; I25.2 Old myocardial infarction
CPT/HCPCS: 99282

== ENCOUNTER → 2022-06-11 11:41 | Outpatient (BNVA) | payer OTHER, SELFPAY | PROVIDERS: PCP Family Medicine; Visit Provider Internal Medicine Cardiovascular Disease | DX: Z45.02 Encounter for adjustment and management of automatic implantable cardiac defibrillator (principal) | CPT/HCPCS: 93282 ==

== ENCOUNTER → 2022-08-23 08:46 | Outpatient (BNVA) | payer OTHER, SELFPAY | PROVIDERS: PCP Family Medicine; Visit Provider Internal Medicine | DX: E11.22 Type 2 diabetes mellitus with diabetic chronic kidney disease (principal); E11.649 Type 2 diabetes mellitus with hypoglycemia without coma; N18.2 Chronic kidney disease, stage 2 (mild); E78.5 Hyperlipidemia, unspecified; E66.01 Morbid (severe) obesity due to excess calories; Z68.38 Body mass index [BMI] 38.0-38.9, adult; Z79.4 Long term (current) use of insulin | CPT/HCPCS: 99214 ==

== ENCOUNTER → 2022-10-04 10:28 | Outpatient (BNVA) | payer OTHER, SELFPAY | PROVIDERS: PCP Family Medicine; Visit Provider Internal Medicine | DX: E11.22 Type 2 diabetes mellitus with diabetic chronic kidney disease (principal); E11.649 Type 2 diabetes mellitus with hypoglycemia without coma; E11.40 Type 2 diabetes mellitus with diabetic neuropathy, unspecified; N18.2 Chronic kidney disease, stage 2 (mild); E78.5 Hyperlipidemia, unspecified; E66.01 Morbid (severe) obesity due to excess calories; I25.10 Atherosclerotic heart disease of native coronary artery without angina pectoris; Z79.4 Long term (current) use of insulin; Z79.84 Long term (current) use of oral hypoglycemic drugs; Z68.41 Body mass index [BMI] 40.0-44.9, adult | CPT/HCPCS: 99214 ==

== ENCOUNTER 2022-12-07 10:36 | Outpatient (CLI) | payer OTHER, SELFPAY ==
[2022-12-07 11:40] LABS: Estmated Average Glucose 169; Hemoglobin A1C 7.5 % (4.0-6.0)
[2022-12-07 11:46] LABS: Alanine Aminotransferase 11 U/L (0-41); Albumin Level 3.8 g/dL (3.5-5.2); Alkaline Phosphatase 104 U/L (40-130); Anion Gap 12.6 (5-19); Aspartate Amino Transferase 18 U/L (0-40); Blood Urea Nitrogen 13 mg/dL (6-20); Calcium 8.9 mg/dL (8.5-10.5); Carbon Dioxide 35 mmol/L (22-29); Chloride 100 mmol/L (98-107); Chol HDL Ratio 2.55 mg/dL (1.0-5.00); Cholesterol 120 mg/dL (0-200); Globulin 3.1 g/dL (1.3-4.6); Glomerular Filtration Rate 68.8 mL/min (90-130); Glucose 161 mg/dL (65-115); HDL Cholesterol 47 mg/dL (60-100); LDL Cholesterol Calculated 56 mg/dL (50-129); LDL HDL Ratio 1.19 RATIO (0.00-3.22); Osmolality Calculated 302 mOsm/kg (285-295); Potassium 3.6 mmol/L (3.5-5.1); Sodium 144 mmol/L (136-145); Total Bilirubin 0.6 mg/dL (0.15-1.2); Total Protein 6.9 g/dL (6.6-8.7); Triglycerides 84 mg/dL (0-150)
[2022-12-07 12:05] LABS: Creatinine Urine, Random 40 mg/dL (39-259); Microalbumin Random Urine 2 ug/dL (0-20)
[2022-12-07 12:08] LABS: Microalbum Creatinine Ratio Ur 50 mg/dL (0-20)
== END 2022-12-07 10:37 | disposition home or self-care (01) ==
LOC: LAB 10:40
PROVIDERS: PCP Family Medicine; Visit Provider Internal Medicine
DX: E11.22 Type 2 diabetes mellitus with diabetic chronic kidney disease (principal); E11.649 Type 2 diabetes mellitus with hypoglycemia without coma; E78.5 Hyperlipidemia, unspecified; N18.2 Chronic kidney disease, stage 2 (mild); E66.01 Morbid (severe) obesity due to excess calories
CPT/HCPCS: 36415; 80053; 80061; 82044; 83036

== ENCOUNTER → 2022-12-10 13:27 | Outpatient (BNVA) | payer OTHER, SELFPAY | PROVIDERS: PCP Family Medicine; Visit Provider Internal Medicine | DX: E11.649 Type 2 diabetes mellitus with hypoglycemia without coma (principal); E11.22 Type 2 diabetes mellitus with diabetic chronic kidney disease; N18.2 Chronic kidney disease, stage 2 (mild); E78.5 Hyperlipidemia, unspecified; E66.01 Morbid (severe) obesity due to excess calories; Z79.4 Long term (current) use of insulin; Z79.84 Long term (current) use of oral hypoglycemic drugs; Z68.41 Body mass index [BMI] 40.0-44.9, adult | CPT/HCPCS: 99214 ==

== ENCOUNTER → 2023-04-30 08:59 | Outpatient (BNVA) | payer OTHER, SELFPAY | PROVIDERS: PCP Family Medicine; Visit Provider Nurse Practitioner Family | DX: B35.3 Tinea pedis (principal); L30.4 Erythema intertrigo; L82.1 Other seborrheic keratosis; D22.61 Melanocytic nevi of right upper limb, including shoulder; B35.1 Tinea unguium; L82.0 Inflamed seborrheic keratosis | CPT/HCPCS: 17110; 99213 ==

== ENCOUNTER → 2023-07-31 11:02 | Outpatient (BNVA) | payer OTHER, SELFPAY | PROVIDERS: PCP Family Medicine; Visit Provider Nurse Practitioner Family | DX: L08.9 Local infection of the skin and subcutaneous tissue, unspecified (principal); L82.1 Other seborrheic keratosis; L91.8 Other hypertrophic disorders of the skin; D22.62 Melanocytic nevi of left upper limb, including shoulder | CPT/HCPCS: 11102; 99213 ==

== ENCOUNTER 2023-08-11 11:07 | Inpatient (IN) | payer OTHER, MEDICARE, SELFPAY ==
[2023-08-11] VITALS (94 sets, daily range): BP systolic 50–142; BP diastolic 37–96; PULSE 68–138; RESP 14–33; TEMP 37.4–37.9; O2SAT 85–100; BMI 37.4
--- NOTE | 2023-08-11 11:19 | ED_ITS ---
HPI - SOB/Dyspnea 2 General: Chief Complaint: Shortness of Breath/Dyspnea Stated Complaint: sob Time Seen by Provider: 08/11/23 11:29 History of Present Illness: HPI Narrative: Patient presents to the ER with complaints of shortness of breath over the last couple days. Patient was using accessory muscles for breathing patient has a significant cardiac history. As noted the patient's heart rate was 138 he has rest breathing was about 31 times a minute he was satting at roughly 85% on room air. Denies any nausea vomiting fever. 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 Mother No problems noted. Denies family history of CAD (coronary artery disease) Social History Smoking and tobacco/nicotine status: former use of tobacco/nicotine Alcohol intake: never Substance/Drug Use: never Marital status: Single Current occupational status: disabled Do you think of yourself as: Straight/Heterosexual Physical Exam 2 Const: COMMON NORMALS: patient oriented x3 and alert; apparent distress (Mild to moderate distress) and negative for average body habitus (Morbid obesity) HENMT: COMMON NORMALS: normocephalic, atraumatic, hearing grossly normal bilaterally, external ears normal, Normal external nose present, moist oral mucous membranes and oropharynx normal HEAD & SCALP: normocephalic and atraumatic NOSE: Normal external nose present EXTERNAL EAR: Yes external ears normal Neck/C-Spine: COMMON NORMALS: full ROM, no lymphadenopathy, supple, no meningeal signs and no JVD Chest: COMMONS NORMALS: normal inspection of the chest and normal palpation of entire chest wall Resp: COMMON NORMALS: normal respiratory effort (Poor respiratory effort) and clear to auscultation bilaterally (Decreased breath sounds bilaterally probably secondary to obesity); negative for No use of accessory muscles (Use of accessory muscles) A USCULTATION: clear to auscultation bilaterally (Decreased breath sounds bilaterally probably secondary to obesity) Cardio: COMMON NORMALS: no JVD, No gallops present (Cardio), No clicks present (Cardio), No murmurs present (Cardio) and No rub (Cardio); negative for regular rate (Sustained V. tach) and negative for regular rhythm RATE: abnormal rate (Sustained V. tach) RHYTHM: abnormal rhythm GI: COMMON NORMALS: Normal to inspection, nondistended, normoactive bowel sounds present (Morbid obesity), Soft to palpation, non-tender, No hepatosplenomegaly present and no masses PALPATION: Yes Soft to palpation and Yes No hepatosplenomegaly present Neuro: COMMON NORMALS: patient oriented x3 SENSORIUM/ORIENTATION: Yes alert MENINGEAL SIGNS: Yes no meningeal signs Procedures Central Line Placement Left IJ: Time Out Performed: Yes Patient Placed on Monitor/Pulse Ox: Yes MD Prep: mask, gown and gloves Central Line Prep: Chlorhexidine scrub and sterile drapes applied Ultrasound Used for Placement: Yes Central Line Lumen Inserted: triple Post Procedure: sutured in place, good blood return, all ports aspirated, flushed, capped and sterile dressing applied Post Procedure X-Ray: tip of catheter in good position and no pneumothorax seen Patient Tolerated Procedure: well and no complications Additional Comments: The procedure was started by myself but I was unsuccessful in cannulating the IJ and asked Dr. Bal to step in for assistance and Dr. Bal completed the procedure with no complications. Intubation Time out performed: Yes sedative: Etomidate Mg Given: 20 paralytic: Succinylcholine Mg Given: 100 Laryngoscope: fiber optic video scope Assist Device Used: Bougie ET Tube Size: 8 Tube Secured Depth (cm): 23 Tube Secured Location: other (Gums) Tube Placement Confirmation: visualized tube passing through cords, equal breath sounds bilaterally and no breath sounds over epigastrium Patient Tolerated Procedure: well Additional Comments: After 1 unsuccessful attempt at intubation with bougie assistance by videoscope by myself as Dr. Bal to provide assistance Dr. Lofton was successful at intubating the patient at the first attempt. Procedural Sedation ASA Class: IV Preparation: information technology project manager applied, pulse oximeter, supplemental O2 applied, suction/airway equipment at bedside and IV secured Fentanyl: IV Midazolam: IV Midazolam dose (mg): 6 Patient Tolerated Procedure: well and no complications Additional Comments: Patient was procedurally sedated with Versed and fentanyl for synchronized cardioversion with Dr. Lester present. Procedure was successful in converting from V. tach to sinus tachycardia. Course 2 Vital Signs: Vital signs: Vital Signs Temperature 98.2 F 08/15/23 04:00 Pulse Rate 78 08/15/23 20:00 Respiratory Rate 20 H 08/15/23 20:00 Blood Pressure 108/66 08/15/23 20:00 Pulse Oximetry 94 08/15/23 20:00 Oxygen Delivery Me thod Mechanical Ventil ation 08/15/23 20:00 Fraction of Inspir ed Oxygen 35 08/15/23 20:00 MDM - SOB/Dyspnea Medical Decision Making It was noted the patient had V. tach. Dr. Lester was faxed to [facility]. Dr. Lester showed up in the ER. We are having extremely difficult time finding a an IV. Once we found an IV patient was given 100 mcg of fentanyl 6 mg of Versed and cardioverted. Patient went into a sinus tachycardia with a left bundle branch block. Per Dr. Lester we will put patient on an amiodarone drip after he was given 150 mg of amiodarone IV push, a bolus of heparin, we will obtain a CTA and Dr. Lester will probably take him to the [facility]. After Dr. Lester left. Patient has central line placed by Dr. Lofton after 1 failed attempt by myself. Patient was intubated by Dr. Lofton after 1 failed attempt by myself. Patient was bolused 1 L of fluid he was placed on a amiodarone drip, fentanyl drip, Levophed drip, Versed drip, even on all this patient was still bucking the vent he was placed on a Precedex drip as well. Dr. Kelly was consulted who agreed to accept the patient to the ICU for further evaluation and treatment. Differential Diagnosis Unlikely acute exacerbation of chronic obstructive airways disease, congestive heart failure, community acquired pneumonia, asthma with exacerbation or pulmonary embolism Lab Data 08/15/23 05:25 08/15/23 14:00 Labs/Radiology: Radiology Impressions Chest CTA 08/11/23 12:49 IMPRESSION: 1. No pulmonary embolism. 2. Multifocal bilateral consolidations suspicious for multifocal pneumonia. 3. NG tube with its tip at the gastroesophageal junction, consider advancing by at least 5 centimeters. Venous Duplex 08/11/23 16:05 IMPRESSION: No evidence of deep vein thrombosis. Abdomen Ultrasound 08/13/23 08:29 IMPRESSION: 1. Hepatomegaly with fatty infiltration of the liver. 2. No gallstones are appreciated. Gallbladder wall thickening. This is likely related to abdominal ascites. Laboratory Results WBC 13.22 10^3/uL (3.29-11.43) H 08/11/23 12:39 RBC 4.95 10^6/uL (3.85-5.65) 08/11/23 12:39 Hgb 14.80 g/dL (11.27-16.99) 08/11/23 12:39 Hct 46.0 % (37-53) 08/11/23 12:39 MCV 92.9 fl (82-101) 08/11/23 12:39 MCH 29.9 pg (27-33) 08/11/23 12:39 MCHC 32.2 g/dL (30-55) 08/11/23 12:39 RDW 14.7 % (12.1-15.1) 08/11/23 12:39 Plt Count 323 10^3/cmm (157-399) 08/11/23 12:39 MPV 10.8 fL (7.4-10.4) H 08/11/23 12:39 Neut % (Auto) 86.4 % 08/11/23 12:39 Lymph % (Auto) 3.6 % 08/11/23 12:39 Mccreary % (Auto) 7.1 % 08/11/23 12:39 Eos % (Auto) 1.8 % 08/11/23 12:39 Baso % (Auto) 0.5 % 08/11/23 12:39 Neut # (Auto) 11.43 10^3/uL (1.8-7.7) H 08/11/23 12:39 Lymph # (Auto) 0.5 10^3/uL (0.8-4.8) L 08/11/23 12:39 Mccreary # (Auto) 0.9 10^3/uL (0.2-0.9) 08/11/23 12:39 Eos # (Auto) 0.2 10^3/uL (0.0-0.8) 08/11/23 12:39 Baso # (Auto) 0.1 10^3/uL (0.0-0.1) 08/11/23 12:39 Nucleated RBC % (auto) 0 % 08/11/23 12:39 Nucleated RBCs # 0.0 /100WBC 08/11/23 12:39 PT 17.90 SECONDS (12.1-14.9) H 08/11/23 12:39 INR 1.42 (0.8-1.2) H 08/11/23 12:39 D-Dimer 1.77 ug/mLFEU (0-0.59) H 08/11/23 12:59 Sodium 133 mmol/L (136-145) L 08/11/23 12:39 Potassium 4.5 mmol/L (3.5-5.1) 08/11/23 12:39 Chloride 91 mmol/L (98-107) L 08/11/23 12:39 Carbon Dioxide 25 mmol/L (22-29) 08/11/23 12:39 Anion Gap 21.5 (5-19) H 08/11/23 12:39 BUN 46 mg/dL (6-20) H 08/11/23 12:39 Creatinine 2.0 mg/dL (0.7-1.2) H 08/11/23 12:39 GFR Calculation 34.4 mL/min (90-130) L 08/11/23 12:39 Glucose 257 mg/dL (65-115) H 08/11/23 12:39 POC Glucose 211 mg/dL (70-110) H 08/11/23 11:22 Estimat Average Glucose 183 08/11/23 12:39 Hemoglobin A1c 8.0 % (4.0-6.0) H 08/11/23 12:39 Calculated Osmolality 297 mOsm/kg (285-295) H 08/11/23 12:39 Lactic Acid (Sepsis) 2.1 mmol/L (0.5-2.2) 08/11/23 00:50 Calcium 8.9 mg/dL (8.5-10.5) 08/11/23 12:39 Magnesium 2.4 mg/dL (1.7-2.3) H 08/11/23 12:39 Total Bilirubin 0.8 mg/dL (0.15-1.2) 08/11/23 12:39 AST 20 U/L (0-40) 08/11/23 12:39 ALT 14 U/L (0-41) 08/11/23 12:39 Alkaline Phosphatase 87 U/L (40-130) 08/11/23 12:39 Troponin T Baseline 92 ng/L (0-15) H 08/11/23 12:39 Troponin T Hi Sens 6Hr 106.4 ng/L (0-15) H 08/11/23 00:50 Troponin T Hi Sens 6Hr Delta 14.4 ng/L (0-12) H* 08/11/23 00:50 C-Reactive Protein 284.8 mg/L (0.0-4.9) H 08/11/23 12:39 NT-Pro-B Natriuret Pep 8290 pg/mL (0-125) H 08/11/23 12:39 Total Protein 7.4 g/dL (6.6-8.7) 08/11/23 12:39 Albumin 3.4 g/dL (3.5-5.2) L 08/11/23 12:39 Globulin 4.0 g/dL (1.3-4.6) 08/11/23 12:39 Triglycerides 91 mg/dL (0-150) 08/11/23 12:39 Cholesterol 132 mg/dL (0-200) 08/11/23 12:39 LDL Cholesterol, Calc 70 mg/dL (50-129) 08/11/23 12:39 HDL Cholesterol 44 mg/dL (60-100) L 08/11/23 12:39 LDL/HDL Ratio 1.59 RATIO (0.00-3.22) 08/11/23 12:39 Cholesterol/HDL Ratio 3.00 mg/dL (1.0-5.00) 08/11/23 12:39 Procalcitonin 0.58 ng/mL (0-0.5) H 08/11/23 12:39 TSH 6.84 uIU/mL (0.27-4.20) H 08/11/23 12:39 Nasal Influ A H1 2008 PCR Cancelled 08/11/23 05:22 Serum Ketones Negative (Negative) 08/11/23 12:39 Adenovirus (PCR) Cancelled 08/11/23 05:22 C. pneumoniae DNA (PCR) Cancelled 08/11/23 05:22 Coronavirus 229E (PCR) Cancelled 08/11/23 05:22 Human Metapneumovir PCR Cancelled 08/11/23 05:22 Influenza A (H1) PCR Cancelled 08/11/23 05:22 Influenza A (H3) PCR Cancelled 08/11/23 05:22 Influenza Type A (PCR) Cancelled 08/11/23 05:22 Influenza Type B (PCR) Cancelled 08/11/23 05:22 M. pneumoniae (PCR) Cancelled 08/11/23 05:22 Parainfluenza 1 (PCR) Cancelled 08/11/23 05:22 Parainfluenza 2 (PCR) Cancelled 08/11/23 05:22 Parainfluenza 3 (PCR) Cancelled 08/11/23 05:22 Parainfluenza 4 (PCR) Cancelled 08/11/23 05:22 RSV Type A (PCR) Cancelled 08/11/23 05:22 RSV Type B (PCR) Cancelled 08/11/23 05:22 Entero/Rhino (PCR) Cancelled 08/11/23 05:22 SARS-CoV-2 (PCR) Cancelled 08/11/23 05:22 All radiology interpretation(s) finalized by discharge Critical Care Time 2 Critical Care Time: Critical Care Time: Yes Total Critical Care Time: 90 Attestation: Patient presented to the ER and quickly went into a V. tach rhythm and then acute respiratory failure, went hypotensive, patient was cardioverted, patient was intubated, patient is placed on multiple drips including amiodarone, Versed, fentanyl, fluid bolus, central line was placed, Dr. Lester saw the patient in the emergency room, Discharge Plan Discharge Patient Disposition: Admitted As Inpatient Admit Provider: Mariluz,Willi Clinical Impression: Sustained ventricular tachycardia, Acute hypotension, Morbid obesity, Implantable cardioverter-defibrillator (ICD) in situ Acute respiratory failure Qualifiers: Respiratory failure complication: hypoxia Qualified Code(s): J96.01 - Acute respiratory failure with hypoxia Coronary artery disease Qualifiers: Coronary Disease-Associated Artery/Lesion type: unspecified vessel or lesion type [place] vs. transplanted heart: [place] heart Associated angina: unspecified whether angina present Qualified Code(s): I25.10 - Atherosclerotic heart disease of [place] coronary artery without angina pectoris Condition: Stable Coding Level of Care Code ED Medical Technologist Generalist for Guanaco Tompkins
[2023-08-11 11:31] LABS: Glucose Point of Care 211 mg/dL (70-110)
--- NOTE | 2023-08-11 11:48 | XRR_ITS ---
PROCEDURE INFORMATION: Exam: XR Chest Exam date and time: 08/11/2023 12:31 PM Age: 58 years old Clinical indication: Device placement; Ett placement (vent status); Patient HX: Mi; SOB; Ett/og/central line placement TECHNIQUE: Imaging protocol: Radiologic exam of the chest. Views: 1 view. COMPARISON: CT lung screening [id number] 04/10/2022 1:17 PM FINDINGS: Tubes, catheters and devices: Lines and tubes: ET tube approximately 2.5 centimeters from the eloisa. Right IJ central venous catheter with its tip in the right atrium. Partially visualized NG tube is seen coursing through the esophagus and appearing to end near the gastroesophageal junction. Lungs: Bilateral lungs clear. Pleural spaces: No pneumothorax, or pleural effusion. Heart/Mediastinum: Mild cardiomegaly. Bones/joints: Unremarkable. XR/XR chest 1V portable [id number] IMPRESSION: ET tube appears to end approximately 2.5 centimeters from the eloisa. NG tube is seen with its tip near the gastroesophageal junction consider advancement. Right IJ central venous catheter with its tip at the right atrium. No pneumothorax.
--- NOTE | 2023-08-11 11:48 | ECG_ITS ---
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 Measurements Intervals [place] Rate: 103 P: 52 HI: 145 QRS: -87 QRSD: 158 T: 80 QT: 419 QTc: 550 Interpretive Statements SINUS TACHYCARDIA LEFT AXIS DEVIATION [QRS AXIS < -30] RIGHT BUNDLE BRANCH BLOCK [120+ ms QRS DURATION, UPRIGHT V1, 40+ ms S IN I/aVL/V4/V5/V6] POSSIBLE ANTERIOR MYOCARDIAL INFARCTION , OF INDETERMINATE AGE [30 ms Q WAVE IN V3/V4, OR R < 0.2 mV IN V4] INTERPRETATION BASED ON A DEFAULT AGE OF 40 YEARS Compared to ECG 01/31/2022 22:31:21 Left-axis deviation now present Sinus rhythm no longer present Left anterior fascicular block no longer present Myocardial infarct finding still present Electronically Signed On 08-12-2023 8:37:44 BRUSH CLEANER by Alverto Qureshi M.D. [email or web address].[employer]/store/[id number] f
[2023-08-11] MEDS: fentaNYL 50 mcg/mL INJ 2mL 100 MCG IVP (11:50)
[2023-08-11] MEDS: midazolam 1 mg/mL INJ 2 mL 6 MG IVP (12:12)
[2023-08-11] MEDS: amiodarone 50 mg/mL SDV 3 mL 150 MG IVP (12:13)
[2023-08-11] MEDS: etomidate 2 mg/mL INJ SDV 10 mL 20 MG IVP (12:15)
[2023-08-11] MEDS: succinylcholine 20 mg/mL SDV 10mL 100 MG IVP (12:16)
[2023-08-11] MEDS: heparin 5,000 unit/mL INJ 1 mL 4000 UNIT IVP (12:19)
[2023-08-11] MEDS: propofol 10 mg/mL SDV 20 mL 100 MG IVP ×2 (12:30→13:30)
[2023-08-11] MEDS: midazolam hcl 100 MG/100 ML BAG IV (12:32)
[2023-08-11] MEDS: fentaNYL 1,000 MCG/100 ML BAG 5 MCG IV (12:32)
[2023-08-11] MEDS: norepinephrine 4 MG/250 ML BAG 18.75 MG IV (12:33)
--- NOTE | 2023-08-11 12:41 | PC.NURSE ---
PT STATUS DETERIORATED. PT GIVEN VERSED AND FENTANYL TO SEDATE FOR DELIVERABLE SHOCK. PATIENT SHOCK GIVEN. PT CONTINUED TO DETERIORATE. PT INTUBATED WITH ETOMIDATE AND SUCC. PATIENT SEDATED. NURSE WASTED 100 MG PROPOFOL, 100 MG SUCC WITH JONO STUART.
--- NOTE | 2023-08-11 12:43 | PC.PHAR ---
Addendum entered by Eliz Prasad 08/12/23 07:17: [facility] 08/12/23 @07:17 Addendum entered by Leonor Kenney 08/11/23 13:29: PT HAS [facility] COVER[facility], FAXING FOR MED LIST 08/11/23. [facility] CL[facility] Original Note: PTS' MOM STATES PT IS THE ONLY ONE WHO KNOWS WHAT MEDICATIONS HE TAKES. UNABLE TO VERIFY MEDICATIONS AT THIS TIME. 08/11/23
[2023-08-11 12:46] LABS: Basophils # 0.1 10^3/uL (0.0-0.1); Basophils % 0.5 %; Eosinophils # 0.2 10^3/uL (0.0-0.8); Eosinophils % 1.8 %; Lymphocytes # 0.5 10^3/uL (0.8-4.8); Lymphocytes % 3.6 %; Mean Corpuscular HGB Conc 32.2 g/dL (30-55); Mean Corpuscular Hemoglobin 29.9 pg (27-33); Mean Corpuscular Volume 92.9 fl (82-101); Mean Platelet Volume 10.8 fL (7.4-10.4); Monocytes # 0.9 10^3/uL (0.2-0.9); Monocytes % 7.1 %; Neutrophils # 11.43 10^3/uL (1.8-7.7); Neutrophils % 86.4 %; Nucleated Red Blood Cells % 0 %; Platelet Count 323 10^3/cmm (157-399); Red Blood Count 4.95 10^6/uL (3.85-5.65); Red Cell Distribution Width 14.7 % (12.1-15.1); White Blood Count 13.22 10^3/uL (3.29-11.43)
--- NOTE | 2023-08-11 12:49 | CTR_ITS ---
PROCEDURE INFORMATION: Exam: CTA Chest With Contrast Exam date and time: 08/11/2023 3:45 PM Age: 58 years old Clinical indication: Shortness of breath; Additional info: Dyspnea, chf, v tach, intubated, central line, og tube TECHNIQUE: Imaging protocol: Computed tomographic angiography of the chest with contrast. Exam focused on the arteries. 3D rendering (Not supervised by radiologist): MIP and/or 3D reconstructed images were created by the technologist. Radiation optimization: All CT scans at this facility use at least one of these dose optimization techniques: automated exposure control; mA and/or kV adjustment per patient size (includes targeted exams where dose is matched to clinical indication); or iterative reconstruction. Contrast material: OMNI 350; Contrast volume: 59 ml; Contrast route: INTRAVENOUS (IV); REPORTING DATA: Count of CT and Cardiac NM exams in prior 12 months: This patient has received 0 known CTs and 0 known cardiac nuclear medicine studies in the 12 months prior to the current study. COMPARISON: CT angio chest PE protcl [id number] 09/17/2018 8:52 PM RADIATION DOSE METRICS: Total DLP (mGy-cm): 572.61 FINDINGS: Tubes, catheters and devices: ET tube in place with its tip in the mid eloisa. NG tube is seen coursing through the esophagus with its tip at the gastroesophageal junction. Consider advancement by at least 5 centimeters. Left IJ central venous catheter with its tip terminating in the right atrium. Pacemaker with intact leads. Pulmonary arteries: Adequate visualization of the pulmonary arteries to the subsegmental level. No pulmonary embolism. Aorta: Ascending aorta is normal in caliber. Lungs: Multifocal consolidations in the right upper, left basilar, and perihilar regions suspicious for multifocal pneumonia. Pleural spaces: No pneumothorax. Trace bilateral pleural effusions. Heart: Mild cardiomegaly. No pericardial effusion. Coronary arteries: Triple-vessel coronary artery calcifications. Lymph nodes: 1.3 centimeters right paratracheal lymph node is seen. Intraperitoneal space: The visualized intra-abdominal structures are normal. Bones/joints: Unremarkable. No acute fracture. Soft tissues: Unremarkable. CT/CT angio chest PE protcl [id number] IMPRESSION: 1. No pulmonary embolism. 2. Multifocal bilateral consolidations suspicious for multifocal pneumonia. 3. NG tube with its tip at the gastroesophageal junction, consider advancing by at least 5 centimeters.
[2023-08-11 13:02] LABS: INR 1.42 (0.8-1.2)
[2023-08-11 13:05] LABS: Troponin(5th) Baseline 92 ng/L (0-15)
--- NOTE | 2023-08-11 13:48 | ECG_ITS ---
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 Measurements Intervals [place] Rate: 92 P: 53 [place]: 135 QRS: -87 QRSD: 160 T: 80 QT: 427 QTc: 529 Interpretive Statements SINUS RHYTHM LEFT AXIS DEVIATION [QRS AXIS < -30] RIGHT BUNDLE BRANCH BLOCK [120+ ms QRS DURATION, UPRIGHT V1, 40+ ms S IN I/aVL/V4/V5/V6] POSSIBLE ANTERIOR MYOCARDIAL INFARCTION , OF INDETERMINATE AGE [30 ms Q WAVE IN V3/V4, OR R < 0.2 mV IN V4] Compared to ECG 01/31/2022 22:31:21 Left-axis deviation now present Left anterior fascicular block no longer present Myocardial infarct finding still present Electronically Signed On 08-12-2023 8:39:55 CHALK CUTTER by Alverto Qureshi M.D. [email or web address] [email or web address].[email or web address]/store/[id number] f
--- NOTE | 2023-08-11 13:48 | PC.NURSE ---
patient sedated, mechanically vented. oxygen 100% on 100 FiO2. RR 16 on ventilator, 14 on monitor. VT 500. PEEP 6.
[2023-08-11 14:08] LABS: Alanine Aminotransferase 14 U/L (0-41); Albumin Level 3.4 g/dL (3.5-5.2); Alkaline Phosphatase 87 U/L (40-130); Anion Gap 21.5 (5-19); Aspartate Amino Transferase 20 U/L (0-40); Blood Urea Nitrogen 46 mg/dL (6-20); Calcium 8.9 mg/dL (8.5-10.5); Carbon Dioxide 25 mmol/L (22-29); Chloride 91 mmol/L (98-107); Glomerular Filtration Rate 34.4 mL/min (90-130); Glucose 257 mg/dL (65-115); Magnesium 2.4 mg/dL (1.7-2.3); Osmolality Calculated 297 mOsm/kg (285-295); Potassium 4.5 mmol/L (3.5-5.1); Sodium 133 mmol/L (136-145); Total Bilirubin 0.8 mg/dL (0.15-1.2); Total Protein 7.4 g/dL (6.6-8.7)
[2023-08-11] MEDS: dexmedeTOMIDine 0.9 % NaCL 400 MCG/100 ML PREMIX IV (14:29)
[2023-08-11 14:32] LABS: NT Pro B Type Natriuretic Pept 8290 pg/mL (0-125)
--- NOTE | 2023-08-11 15:10 | USCV_ITS ---
Param Tejada Age: 58 Gender: M : 1965 Exam Date: 08/11/2023 18:20 Ordering Phys: Willi Mcgraw MD Technologist: Gustavo Andrade [place] [facility] [place] sob BP: 117 / 72 HR: Rhythm: Sinus Technical Quality: Technically difficult study MEASUREMENTS (Male / Female) Normal Values 2D ECHO IVC Diameter 2.6 cm DOPPLER Right Atrial Pressure 15.0 mmHg FINDINGS Left Ventricle Right Ventricle Right Atrium Left Atrium Mitral Valve Aortic Valve Tricuspid Valve Pulmonic Valve Pericardium Aorta IVC CONCLUSIONS Technically very limited quality echocardiogram. Cardiac structures are not well-visualized. Grossly LV systolic function appears to be moderately reduced. However accurate assessment cannot be made based on very limited images. IVC appears dilated. Alverto Qureshi MD (Electronically Signed) Final Date: 12 August 2023 10:33 S
--- NOTE | 2023-08-11 15:11 | PC.NURSE ---
per Dr. Edwards to increase Precedex to 0.4mcg/kg/hour, d/t pt biting at ET tube, RR 30 on monitor.
--- NOTE | 2023-08-11 15:12 | PM.HP ---
Providers/Chief Complaint Admitting Physician: Willi Mcgraw MD Primary Care Provider: Karla Ryan MD Chief Complaint: sob History of Present Illness Param Tejada is a 58 year old male with a past medical history of type 2 diabetes mellitus, morbid obesity, history of CAD status post PCI of RCA and LAD in 2016, ischemic cardiomyopathy status post ICD, hypertension, dyslipidemia, COPD, struct of sleep apnea, CKD, systolic CHF, shortness of breath over the last couple of days. Currently patient is intubated, sedated, mechanical ventilation, most the history was obtained by ER physician, patient walked into the emergency room complaining of shortness of breath, had evidence of mild respiratory distress, using multi [place] assessor muscles, he was hooked up to telemetry heart rates were in the 138, found to have V. tach saturating 5% on room air, tachypneic, patient was given fentanyl and Versed and cardioverted, into sinus tachycardia, with a left bundle branch block, placed on amiodarone drip, due to worsening respiratory status, patient was intubated, placed on mechanical ventilation, currently he is on 100% FiO2, on 12 of Levophed, on amiodarone drip has received a heparin bolus, on fentanyl, Versed, Precedex, Review of Systems General: Reports: ROS unobtainable due to endotracheal tube Medications/Allergies Home Medications Medication Instructions Recorded Confirmed Last Taken Type acetaminophen 500 mg tablet 1,000 mg PO TID PRN Pain 11/29/20 12/10/22 Unknown History aspirin 81 mg tablet,delayed 81 mg PO QAM 11/29/20 12/10/22 01/31/22 09:00 History release atorvastatin 80 mg tablet 80 mg PO QPM 11/29/20 12/10/22 01/30/22 History cetirizine 10 mg tablet 10 mg PO DAILY PRN Allergy Symptoms 11/29/20 12/10/22 01/31/22 History ipratropium 0.5 mg-albuterol 3 mg 3 ml inhalation QID PRN Shortness 11/29/20 12/10/22 Unknown History (2.5 mg base)/3 mL nebulization Of Breath soln metformin 500 mg tablet 500 mg PO BID 11/29/20 12/10/22 01/31/22 History methocarbamol 500 mg tablet 1,000 mg PO BEDTIME 11/29/20 12/10/22 01/30/22 History nitroglycerin 0.4 mg sublingual 0.4 mg sublingual Q5M PRN Chest 11/29/20 12/10/22 Unknown History tablet Pain ticagrelor 90 mg tablet (Brilinta) 90 mg PO BID 11/29/20 12/10/22 01/31/22 09:00 History tiotropium bromide 2.5 2 puff inhalation DAILY 11/29/20 12/10/22 08/04/21 History mcg/actuation mist for inhalation (Spiriva Respimat) tramadol 50 mg tablet 50 - 100 mg PO TID PRN Pain 11/29/20 12/10/22 Unknown History furosemide 40 mg tablet 40 mg PO QAM edema 03/09/21 12/10/22 01/31/22 History albuterol sulfate 90 mcg/actuation 2 puff inhalation QID PRN 12/12/21 12/10/22 Unknown History aerosol inhaler Shortness Of Breath fluticasone 250 mcg-salmeterol 50 1 inh inhalation BID 01/25/22 12/10/22 Unknown History mcg/dose blistr powdr for inhalation (Wixela Inhub) albuterol sulfate 2.5 mg/3 mL 2.5 mg inhalation Q4H PRN 01/31/22 12/10/22 Unknown History (0.083 %) solution for nebulization Shortness Of Breath cholecalciferol (vitamin D3) 25 3,000 unit PO BEDTIME 01/31/22 12/10/22 01/30/22 History mcg (1,000 unit) capsule (Vitamin D3) gabapentin 400 mg capsule 400 mg PO Q8H 01/31/22 12/10/22 01/31/22 09:00 History insulin glargine 100 unit/mL (3 68 unit SUBCUT BEDTIME 01/31/22 12/10/22 01/30/22 History mL) subcutaneous pen (Lantus Solostar U-100 Insulin) naloxone 4 mg/actuation nasal spray 4 mg intranasal Q2M PRN overdose 01/31/22 12/10/22 Unknown History sennosides 8.6 mg-docusate sodium 1 tab PO BEDTIME 01/31/22 12/10/22 Unknown History 50 mg tablet (Senna-S) ketoconazole 2 % shampoo 1 applic topical Q14D Seborrheic 04/24/22 12/10/22 Unknown Rx dermatitis #120 mL ketoconazole 2 % topical cream 1 applic topical BID #60 grams 04/24/22 12/10/22 Unknown Rx miconazole nitrate 2 % topical 1 applic topical DAILY #71 grams 04/24/22 12/10/22 Unknown Rx powder (Zeasorb AF) white petrolatum 41 % topical 1 applic topical DAILY PRN dry 04/24/22 12/10/22 Unknown Rx ointment (Aquaphor Healing) skin #99 grams metolazone 2.5 mg tablet 2.5 mg PO QAM #90 tabs 05/18/22 12/10/22 Unknown Rx metoprolol succinate 25 mg 12.5 mg (1/2 x 25 mg) PO DAILY #45 05/18/22 12/10/22 Unknown Rx tablet,extended release 24 hr tabs potassium chloride 20 mEq 40 meq PO DAILY 05/18/22 12/10/22 Unknown History tablet,extended release blood-glucose meter,continuous #1 ea 08/23/22 08/11/23 Unknown Rx (Dexcom G6 Heater Engineer Helper) blood-glucose transmitter (Dexcom #3 ea 08/23/22 08/11/23 Unknown Rx G6 Transmitter device) empagliflozin 25 mg tablet 25 mg PO QAM #90 tabs 08/23/22 12/10/22 Unknown Rx (Jardiance) insulin aspart U-100 100 unit/mL 15 unit (0.15 mL) SUBCUT TID #40.5 08/23/22 12/10/22 Unknown Rx (3 mL) subcutaneous pen (Novolog mL FlexPen U-100 Insulin aspart) semaglutide 0.25 mg or 0.5 mg (2 0.25 mg (0.4 mL) SUBCUT Q7D 30 02/15/23 Unknown Rx mg/3 mL) subcutaneous pen injector days #2 mL (Ozempic) semaglutide 0.25 mg or 0.5 mg (2 0.5 mg (0.8 mL) SUBCUT Q7D 30 days 02/15/23 Unknown Rx mg/3 mL) subcutaneous pen injector #4 mL (Ozempic) semaglutide 1 mg/dose (4 mg/3 mL) 1 mg (0.75 mL) SUBCUT Q7D 90 days 02/15/23 02/15/23 Unknown Rx subcutaneous pen injector (Ozempic) #9.75 mL blood-glucose sensor (Dexcom G6 #9 ea 04/19/23 08/11/23 Unknown Rx Sensor device) Allergies Allergy/AdvReac Type Severity Reaction Status Date / Time Sulfa (Sulfonamide Allergy Severe ALGY-Anaphy Verified 08/11/23 11:31 Antibiotics) laxis PFSH Acute PFSH: Medical History Renal calculus Hypokalemia Hyponatremia Ischemic cardiomyopathy Personal history of nicotine dependence Hypertension Diabetes CHF (congestive heart failure) CAD (coronary artery disease) Hypoxia 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 Mother No problems noted. Denies family history of CAD (coronary artery disease) Social History Smoking and tobacco/nicotine status: former use of tobacco/nicotine Alcohol intake: never Substance/Drug Use: never Marital status: Single Current occupational status: disabled Do you think of yourself as: Straight/Heterosexual Vitals/I&O/Wt Last Vital Signs Pulse 90 08/11/23 15:03 Resp 33 H 08/11/23 15:03 BP 104/64 08/11/23 15:03 Pulse Ox 100 08/11/23 15:03 O2 Del Method Mechanical Ventilation 08/11/23 15:03 FiO2 100 08/11/23 13:49 08/11/23 08/11/23 08/11/23 06:59 14:59 22:59 Intake Total 75.500 / 75.500 17.462 / 92.962 Balance 75.500 / 75.500 17.462 / 92.962 Weight last 48 hrs Weight 114.759 kg Physical Exam Const: COMMON NORMALS: no acute distress OTHER: Intubated, sedated on mechanical ventilation HENMT: COMMON NORMALS: normocephalic HEAD & SCALP: normocephalic Eye: COMMON NORMALS: Equal, round and reactive pupils present Neck/C-Spine: COMMON NORMALS: no JVD Lymph: LYMPHATIC: no lymphadenopathy noted Resp: COMMON NORMALS: normal respiratory effort, No retractions and No use of accessory muscles Cardio: COMMON NORMALS: regular rate, regular rhythm, S1 normal heart sound present and S2 normal heart sound present RATE: regular rate RHYTHM: regular rhythm HEART SOUNDS: S1 normal heart sound present and S2 normal heart sound present GI: COMMON NORMALS: Normal to inspection, nondistended, normoactive bowel sounds present, Soft to palpation and non-tender Extremity: COMMON NORMALS: no calf tenderness and no pedal edema Neuro: OTHER: Cannot follow neurologic testing as intubated and sedated Urinary Catheter Management: Burciaga: Cath Placed During This Visit: yes Urinary Catheter Date of Insertion: 08/11/23 Urinary Catheter Time of Insertion: 12:38 Sepsis: Is patient septic: Yes Focused sepsis exam performed: Yes Focused sepsis exam: DP PT pulses diminished, bilateral lower extremities, bluish hue, cap refill greater than 3 seconds, mild mottling of bilateral lower extremities, Date exam was performed: 08/11/23 Time exam was performed: 15:17 Data 08/11/23 12:39 08/11/23 12:39 Micro: Microbiology 08/11/23 12:14 Gram Stain - Final Sputum - Endotracheal Tube Aspirate A&P Assessment and plan (1) Acute hypoxic respiratory failure: (2) V-tach: (3) Shock: (4) NSTEMI (non-ST elevated myocardial infarction): (5) CAPRI (acute kidney injury): (6) 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 Status post cardioversion, Versed, fentanyl, ? Currently on amiodarone drip, ? Currently normal sinus rhythm -Cardiology consulted NSTEMI -Serial EKGs, starting troponins, telemetry monitoring, ? Aspirin, statin, Brilinta Conex ?cardiac echo ?heparin drip, ?cardiology consulted Acute hypoxic respiratory failure ? Possibly secondary to acute systolic CHF, acute flash pulm edema ? Other possibility of ventricular tachycardia ? CT angiogram of the chest is pending, ? WBC count 12, Pro-Beto, CRP, blood cultures, respiratory viral panel, lactic acid ? Plan -Pending CT of the chest, ? Heparin drip as above, ? Will consider diuresis based on clinical progress, ? Currently intubated, sedated, minimize tidal volume, FiO2, ? Currently on fentanyl, Versed, Precedex for sedation, ? Daily spontaneous breathing trials, ? Will consider antibiotics based on clinical progress and further workup as above, CT scan findings, Shock ? Currently on 15 of Levophed, ? Add on vasopressin ? Scheduled albumin ? Etiology could be multifactorial pending cardiac echo, distributive, septic Acute kidney injury, ? Monitor urine output, Type 2 diabetes mellitus, low-dose sliding scale COPD, no active wheezing, hold off on steroids Attestations Medical Necessity Statement*: Patient requires hospitalization, inpatient, greater than 2 minutes, for acute hypoxic respiratory failure, ventilator dependent, shock on pressors, V. tach requiring cardioversion, NSTEMI, CAPRI Coding Level of Care Code Critical Care >/= 30 minutes Critical care time (in minutes): 55 The high probability of a clinically significant, sudden or life threatening deterioration, as referenced in this documentation, required my full and direct attention, intervention and personal management. The critical care time shown is in addition to time spent performing any reported separately billable procedures and includes the following: [x] Data and vital sign review and interpretation [x] Patient assessment, examination and intervention [x] Medication orders and management [x] Patient/Family updates as able [x] Care Coordination and Documentation. 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
[2023-08-11 15:14] LABS: Troponin 5 2HR 75.64 ng/L (0-15)
--- NOTE | 2023-08-11 15:15 | PC.NURSE ---
Report given to [facility] in ICU, per [facility] ICU is ready for pt transport from ER to ICU @[id number].
--- NOTE | 2023-08-11 15:37 | P.CONIM_ITS ---
Providers/Reason For Consult 2 Consulting Physician/Specialty*: Alverto Qureshi MD/ Cardiology Reason for Consult*: Wide complex tachycardia Attending Physician: Willi Mcgraw MD Primary Care Provider: Karla Ryan MD History of Present Illness History of Present Illness Param Tejada is a 58 year old male with past medical history of diabetes, morbid obesity, CAD with prior stent, ICD in place who had a recent cardiac cath in the last 1 month and was told did not need new stents or interventional therapy presented to hospital with worsening shortness of breath. He was in respiratory distress. Cardiology was called as his telemetry and EKG showed wide-complex tachycardia. He was becoming hypotensive. Heart rate was around 150 bpm. Given respiratory distress and hypotension, we proceeded with synchronized cardioversion. This slowed down the heart rate. And also revealed underlying left bundle branch block. On review of prior EKGs, it was evident he has a baseline left bundle branch block. On arrival patient was not complaining of chest pain. With worsening respiratory distress, he was intubated. Review of Systems 2 General: Reports: ROS unobtainable due to endotracheal tube Medications/Allergies Home Medications Medication Instructions Recorded Confirmed Last Taken Type acetaminophen 500 mg tablet 1,000 mg PO TID PRN Pain 11/29/20 08/13/23 Unknown History aspirin 81 mg tablet,delayed 81 mg PO QAM 11/29/20 08/13/23 01/31/22 09:00 History release atorvastatin 80 mg tablet 80 mg PO QPM 11/29/20 08/13/23 01/30/22 History ipratropium 0.5 mg-albuterol 3 mg 3 ml inhalation QID PRN Shortness 11/29/20 08/13/23 Unknown History (2.5 mg base)/3 mL nebulization Of Breath soln methocarbamol 500 mg tablet See Rx Instructions .Route .COMPLEX 11/29/20 08/13/23 01/30/22 History nitroglycerin 0.4 mg sublingual 0.4 mg sublingual Q5M PRN Chest 11/29/20 08/13/23 Unknown History tablet Pain ticagrelor 90 mg tablet (Brilinta) 90 mg PO BID 11/29/20 08/13/23 01/31/22 09:00 History tiotropium bromide 2.5 2 puff inhalation DAILY 11/29/20 08/13/23 08/04/21 History mcg/actuation mist for inhalation (Spiriva Respimat) tramadol 50 mg tablet 50 - 100 mg PO TID PRN Pain 11/29/20 08/13/23 Unknown History albuterol sulfate 90 mcg/actuation 2 puff inhalation QID PRN 12/12/21 08/13/23 Unknown History aerosol inhaler Shortness Of Breath fluticasone 250 mcg-salmeterol 50 1 inh inhalation BID 01/25/22 08/13/23 Unknown History mcg/dose blistr powdr for inhalation (Wixela Inhub) naloxone 4 mg/actuation nasal spray 4 mg intranasal Q2M PRN overdose 01/31/22 08/13/23 Unknown History ketoconazole 2 % topical cream 1 applic topical BID #60 grams 04/24/22 08/13/23 Unknown Rx miconazole nitrate 2 % topical 1 applic topical DAILY #71 grams 04/24/22 08/13/23 Unknown Rx powder (Zeasorb AF) metoprolol succinate 25 mg 12.5 mg (1/2 x 25 mg) PO DAILY #45 05/18/22 08/13/23 Unknown Rx tablet,extended release 24 hr tabs potassium chloride 20 mEq 40 meq PO DAILY 05/18/22 08/13/23 Unknown History tablet,extended release blood-glucose meter,continuous #1 ea 08/23/22 08/11/23 Unknown Rx (Dexcom G6 Director Of Application Development) blood-glucose transmitter (Dexcom #3 ea 08/23/22 08/11/23 Unknown Rx G6 Transmitter device) empagliflozin 25 mg tablet 25 mg PO QAM #90 tabs 08/23/22 08/13/23 Unknown Rx (Jardiance) blood-glucose sensor (Dexcom G6 #9 ea 04/19/23 08/11/23 Unknown Rx Sensor device) clotrimazole 1 % topical cream 1 applic topical BID 08/13/23 08/13/23 Unknown History diclofenac sodium 1 % topical gel See Rx Instructions .Route 08/13/23 08/13/23 Unknown History .COMPLEX PRN Pain fluconazole 200 mg tablet See Rx Instructions .Route .COMPLEX 08/13/23 08/13/23 Unknown History furosemide 20 mg tablet 20 mg PO BID 08/13/23 08/13/23 Unknown History gabapentin 300 mg capsule 600 mg PO Q8H PRN Pain 08/13/23 08/13/23 Unknown History insulin aspart U-100 100 unit/mL See Rx Instructions .Route .COMPLEX 08/13/23 08/13/23 Unknown History (3 mL) subcutaneous pen (Novolog FlexPen U-100 Insulin aspart) levothyroxine 50 mcg tablet 50 mcg PO DAILY 08/13/23 08/13/23 Unknown History lidocaine 5 % topical patch See Rx Instructions .Route .COMPLEX 08/13/23 08/13/23 Unknown History losartan 50 mg tablet 25 mg PO DAILY 08/13/23 08/13/23 Unknown History metformin 500 mg tablet,extended 500 mg PO BID 08/13/23 08/13/23 Unknown History release 24 hr metolazone 2.5 mg tablet 2.5 mg PO EVERY OTHER DAY 08/13/23 08/13/23 Unknown History spironolactone 25 mg tablet 25 mg PO DAILY 08/13/23 08/13/23 Unknown History Allergies Allergy/AdvReac Type Severity Reaction Status Date / Time Sulfa (Sulfonamide Allergy Severe ALGY-Anaphy Verified 08/11/23 11:31 Antibiotics) laxis Current Medications Generic Name Dose Route Start Last Admin Trade Name Freq PRN Reason Stop Dose Admin Amiodarone HCl/Dextrose 360 mg in 200 mls @ 0 mls/hr 08/11/23 12:00 08/11/23 13:37 Nexterone IV 1 mg/min .Q0M VIRA 33.33 mls/hr Administration Protocol Per Protocol Fentanyl 1,000 mcg in 100 mls @ 0 mls/hr 08/11/23 12:30 08/11/23 15:10 Sublimaze IV 125 mcg/hr .Q0M VIRA 12.5 mls/hr Titration Protocol Per Protocol Midazolam HCl 100 mg in 100 mls @ 0 mls/hr 08/11/23 12:30 08/11/23 12:54 Versed IV 6 mg/hr .Q0M VIRA 6 mls/hr Titration Protocol Per Protocol norepinephrine 4 mg in 250 mls @ 0 mls/hr 08/11/23 12:30 08/11/23 15:12 Levophed IV 17 mcg/min .Q0M VIRA 63.75 mls/hr Titration Protocol Per Protocol Dexmedetomidine/Sodium Chloride 400 mcg in 100 mls @ 0 mls/hr 08/11/23 14:15 08/11/23 15:06 Precedex IV 0.4 mcg/kg/hr .Q0M VIRA 11.48 mls/hr Titration Protocol Per Protocol PFSH Acute 2 PFSH: Medical History Renal calculus Hypokalemia Hyponatremia Ischemic cardiomyopathy Personal history of nicotine dependence Hypertension Diabetes CHF (congestive heart failure) CAD (coronary artery disease) Hypoxia 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 2 diabetes mellitus Insulin dependent diabetes mellitus ICD (implantable cardioverter-defibrillator) in place Morbid obesity Obstructive sleep apnea Chronic hypercapnic respiratory failure Tobacco abuse COPD (chronic obstructive pulmonary disease) Ischemic cardiomyopathy Hyperlipidemia Hypertension ST elevation myocardial infarction (STEMI) of inferior wall Surgical History S/P knee replacement History of left knee replacement History of cardiac defibrillator placement History of coronary artery stent placement -hx of CAD with inferior wall [place] s/p RCA stent, LAD stent Family History Father No problems noted. Mother No problems noted. Denies family history of CAD (coronary artery disease) Social History Smoking and tobacco/nicotine status: former use of tobacco/nicotine Alcohol intake: never Substance/Drug Use: never Marital status: Single Current occupational status: disabled Do you think of yourself as: Straight/Heterosexual Vitals/I&O/Wt Last Vital Signs Pulse 88 08/11/23 15:22 Resp 20 H 08/11/23 15:22 BP 107/75 08/11/23 15:22 Pulse Ox 100 08/11/23 15:22 O2 Del Method Mechanical Ventilation 08/11/23 15:03 FiO2 100 08/11/23 13:49 08/11/23 08/11/23 08/11/23 06:59 14:59 22:59 Intake Total 75.500 / 75.500 39.962 / 115.462 Balance 75.500 / 75.500 39.962 / 115.462 Weight last 48 hrs Weight 253 lb Physical Exam 2 Narrative: GENERAL: Patient is alert, in respiratory distress NECK: No jugular vein distension. [] HEENT: No cyanosis. No icterus. No pallor. [] HEART: Tachycardic LUNGS: Clear to auscultate bilaterally. [] CENTRAL NERVOUS SYSTEM: Grossly nonfocal. [] EXTREMITIES: Lower extremities with 1+ edema bilaterally. Urinary Catheter Management: Burciaga: Cath Placed During This Visit: yes Urinary Catheter Date of Insertion: 08/11/23 Urinary Catheter Time of Insertion: 12:38 Data 08/16/23 04:22 08/16/23 04:22 Micro: Microbiology 08/11/23 12:14 Gram Stain - Final Sputum - Endotracheal Tube Aspirate A&P Assessment and plan (1) Wide-complex tachycardia: (2) Hypertension: Qualifiers: Hypertension type: essential hypertension Qualified Code(s): I10 - Essential (primary) hypertension (3) Hyperlipidemia: (4) Tobacco abuse: (5) ICD (implantable cardioverter-defibrillator) in place: (6) CAD (coronary artery disease): (7) CHF (congestive heart failure): (8) Ischemic cardiomyopathy: (9) Acute hypotension: Plan Patient's presentation is more consistent with septic shock. CTA performed shows multifocal consolidation. He will need interrogation of ICD to confirm if he was in ventricular tachycardia. Presenting rhythm was a wide-complex tachycardia however, it could be sinus tachycardia with underlying left bundle branch block. If had VT, or troponins show significant uptrend, can consider ischemic work up. But he had recent cath with no significant stenosis Continue heparin. If no troponin elevation then can hold it. Order echocardiogram Thank you for involving us with care of this patient. Please call with questions. Consult Attestations 2 Medical Necessity Statement: Care expected to cross 2 midnights. Coding Level of Care Code Acute Code for Chg Fwd Diagnoses Wide-complex tachycardia R00.0 Essential hypertension I10 Hypertension type: essential hypertension Hyperlipidemia, unspecified hyperlipidemia type E78.5 Tobacco abuse Z72.0 ICD (implantable cardioverter-defibrillator) in place Z95.810 Coronary artery disease involving [place] coronary artery of [place] heart without angina pectoris I25.10 Acute on chronic systolic congestive heart failure I50.9 Ischemic cardiomyopathy I25.5 Acute hypotension I95.9
[2023-08-11] MEDS: iohexol 350 mg/mL 500 mL Btl (per mL) IV (15:49)
--- NOTE | 2023-08-11 16:05 | USR_ITS ---
PROCEDURE INFORMATION: Exam: US Duplex Lower Extremity Veins, Bilateral Exam date and time: 08/11/2023 5:56 PM Age: 58 years old Clinical indication: Edema, localized; Lower extremity, bilateral; Additional info: Swelling TECHNIQUE: Imaging protocol: Real-time duplex ultrasound of the bilateral extremities with 2-D diaz scale, color Doppler flow and spectral waveform analysis including responses to compression and other maneuvers (when performed) with image documentation. Complete exam focused on the lower extremity veins. COMPARISON: US soft tissue/extremity [id number] 07/24/2021 7:12 AM FINDINGS: Right deep veins: Unremarkable. The common femoral, femoral, proximal profunda femoral and popliteal veins are patent without thrombus. Normal Doppler waveforms. Normal compressibility and/or augmentation response. Left deep veins: Unremarkable. The common femoral, femoral, proximal profunda femoral and popliteal veins are patent without thrombus. Normal Doppler waveforms. Normal compressibility and/or augmentation response. Superficial veins: Bilateral saphenofemoral junctions are patent without thrombus. Soft tissues: Unremarkable. US/CV venous duplex [facility] [id number] IMPRESSION: No evidence of deep vein thrombosis.
[2023-08-11] MEDS: propofol 1,000 MG/100 ML INJ 3.44 MG IV (16:25)
[2023-08-11 16:29] LABS: Lactic Sepsis W/Reflex 3.1 mmol/L (0.5-2.2)
[2023-08-11 16:38] LABS: Procalcitonin 0.58 ng/mL (0-0.5); Thyroid Stimulating Hormone 6.84 uIU/mL (0.27-4.20)
[2023-08-11] MEDS: heparin drip 25,000 UNIT/500 ML PREMIX 32.13 UNIT IV (16:47)
[2023-08-11 16:49] LABS: Cholesterol 132 mg/dL (0-200)
[2023-08-11] MEDS: pantoprazole 40 mg SDV IVP (16:49)
[2023-08-11 16:52] LABS: Ketone (Acetest) Serum Negative (Negative)
[2023-08-11] MEDS: albumin 25 G/100 ML BAG 60 G IV ×2 (16:57→21:11)
[2023-08-11 17:00] LABS: D Dimer 1.77 ug/mLFEU (0-0.59)
[2023-08-11 17:04] LABS: Estmated Average Glucose 183
[2023-08-11] MEDS: vasopressin 40 UNIT/100 ML PREMIX IV (17:04)
[2023-08-11] MEDS: norepinephrine 4 MG/250 ML BAG 75 MG IV ×3 (17:11→23:10)
[2023-08-11 17:14] LABS: Arterial Blood Gas Hematocrit 49.8 % (42-52); Base Excess ABG -3.5 mmol/L (-2.0-2.0); Blood Gas Allen Test Pos; Blood Gas Operator Identificat GD; Blood Gas Sample Site Radial, left; Blood Gas Sample Type Arterial; HCO3 ABG 26.3 mmol/L (22-26); Oxygen Device VENT; PO2 FiO2 Ratio Arterial Blood 0
[2023-08-11 17:17] LABS: ABG PCO2 66.9 mmHg (35-45)
[2023-08-11 17:28] LABS: C Reactive Protein 284.8 mg/L (0.0-4.9); HDL Cholesterol 44 mg/dL (60-100); LDL Cholesterol Calculated 70 mg/dL (50-129); LDL HDL Ratio 1.59 RATIO (0.00-3.22); Triglycerides 91 mg/dL (0-150)
[2023-08-11] MEDS: fentaNYL 1,000 MCG/100 ML BAG 20 MCG IV (17:30)
[2023-08-11] MEDS: meropenem 1,000 MG in sodium chloride 0.9% (plus) 50 ML 100 MG IV (17:33)
[2023-08-11 17:39] LABS: Blood Urine 3+ (Negative); Glucose Urine UA 4+ (Normal); Ketones Urine Negative (Negative); Protein Urine 1+ (Negative); Specific Gravity, Urine 1.015 (1.005-1.030); Urine Appearance Hazy (CLEAR); Urine Color Yellow (Yellow); pH Urine 5 (5-7)
[2023-08-11 17:40] LABS: Add Urine Culture? Yes; Add Urine Microscopic? YES; Bacteria Urine 1+ /hpf; Bilirubin Urine 1+ (Negative); Hyaline Casts Urine 15-25 /lpf; Leukocyte Esterase Urine Trace (Negative); Nitrate Urine Negative (Negative); RBC Urine 15-25 /hpf (0-2); Squamous Epithelial Cell Urine 0-4 /hpf (0-5); Urobilinogen Urine Norm (Negative)
[2023-08-11 17:53] LABS: Reflex Lactate Order REFLEX LACTIC ORDERD
[2023-08-11] MEDS: propofol 1,000 MG/100 ML INJ 55.08 MG IV (18:15)
[2023-08-11] MEDS: vancomycin 1,500 MG/300 ML PIGGYBACK 200 MG IV (18:30)
[2023-08-11] MEDS: insulin lispro 100 unit/1 mL SUBCUT (18:36)
[2023-08-11 18:50] LABS: Glucose Point of Care 272 mg/dL (70-110)
[2023-08-11] MEDS: ipratropium-albuterol 3 mL Neb INHALATION (19:54)
[2023-08-11] MEDS: propofol 1,000 MG/100 ML INJ 51.64 MG IV (20:08)
[2023-08-11] MEDS: budesonide 0.5 mg/2 mL Neb INHALATION (20:49)
[2023-08-11] MEDS: fentaNYL 1,000 MCG/100 ML BAG 10 MCG IV (22:58)
[2023-08-11] MEDS: EPINEPHrine 2.5 MG in sodium chloride 0.9% 250 ML 61.85 MG IV ×2 (23:02→23:04)
[2023-08-11] MEDS: EPINEPHrine 0.1 mg/mL SYR 10 mL 3 MG (23:09)
[2023-08-11] MEDS: sodium chloride 0.9% 1,000 ML 999 ML IV (23:09)
[2023-08-12] VITALS (146 sets, daily range): BP systolic 62–157; BP diastolic 40–117; PULSE 71–106; RESP 14–24; TEMP 37.4–38.4; O2SAT 86–97
[2023-08-12] MEDS: ipratropium-albuterol 3 mL Neb INHALATION ×6 (00:15→20:03)
[2023-08-12 01:19] LABS: Lactic Acid level (Lactate) 2.1 mmol/L (0.5-2.2)
[2023-08-12 01:21] LABS: Troponin 5 6HR 106.4 ng/L (0-15)
[2023-08-12 01:23] LABS: Troponin 5 6HR Delta 14.4 ng/L (0-12)
[2023-08-12] MEDS: vasopressin 40 UNIT/100 ML PREMIX 15 UNIT IV ×4 (01:33→22:02)
[2023-08-12] MEDS: EPINEPHrine 2.5 MG in sodium chloride 0.9% 250 ML 92.77 MG IV ×2 (01:33→04:08)
[2023-08-12] MEDS: dexmedeTOMIDine 0.9 % NaCL 400 MCG/100 ML PREMIX 11.48 MCG IV (01:34)
[2023-08-12] MEDS: norepinephrine 4 MG/250 ML BAG 75 MG IV ×2 (01:54→22:02)
[2023-08-12] MEDS: meropenem 1,000 MG in sodium chloride 0.9% (plus) 50 ML 100 MG IV ×3 (01:54→16:21)
--- NOTE | 2023-08-12 03:58 | XRR_ITS ---
PROCEDURE INFORMATION: Exam: XR Chest Exam date and time: 08/12/2023 5:38 AM Age: 58 years old Clinical indication: Device placement; Ng tube; Prior surgery; Surgery date: 6+ months; Surgery type: Defibrillator; Patient HX: Check S/P og placement. Intubated. ; Additional info: Og tube placement TECHNIQUE: Imaging protocol: Radiologic exam of the chest. Views: 1 view. COMPARISON: CT angio chest PE protcl [id number] 08/11/2023 3:45 PM FINDINGS: Tubes, catheters and devices: Gastric tube enters from above and terminates below the diaphragm, within the stomach. Pacemaker/defibrillator unchanged. Endotracheal tube is stable. Stable left IJ catheter. Lungs: Unchanged pulmonary infiltrates. Pleural spaces: Unremarkable. No pleural effusion. No pneumothorax. Heart/Mediastinum: Unremarkable. No cardiomegaly. Bones/joints: Unremarkable. Other findings: No acute findings. XR/XR chest 1V portable [id number] IMPRESSION: Life support lines as above, specifically the gastric tube is now within the stomach. The
[2023-08-12 04:36] LABS: ABG PCO2 57.6 mmHg (35-45); Alveolar-Arterial Oxygen Gradi 36.9 mmHg (5-10); Arterial Blood Gas Hematocrit 56.4 % (42-52); Base Excess ABG -9.9 mmol/L (-2.0-2.0); Blood Gas Allen Test Pos; Blood Gas Operator Identificat JB; Blood Gas Sample Site Radial, right; Blood Gas Sample Type Arterial; Carboxyhemoglobin 0.6 %THgb (0.4-20.1); HGB O2 Sat 91.8 % (95-100); Methemoglobin 0.2 % (0.4-1.5); Oxygen Device VENT; Oxygen Saturation ABG 92.5; PO2 ABG 78.6 mmHg (80.0-100.0); PO2 FiO2 Ratio Arterial Blood 0; Potassium Level - ABG 5.4 mmol/L (3.5-5.0); Total Hemoglobin 18.4 g/dL (14-18)
[2023-08-12 04:42] LABS: ABG PH Result 7.15 (7.35-7.45)
[2023-08-12 05:24] LABS: Partial Thromboplastin Time 63.9 SECONDS (23.9-36.7)
[2023-08-12] MEDS: midazolam hcl 100 MG/100 ML BAG IV (05:30)
[2023-08-12] MEDS: norepinephrine 4 MG/250 ML BAG 90 MG IV ×5 (05:30→19:01)
[2023-08-12] MEDS: aspirin 81 mg EC Tablet PO (05:49)
[2023-08-12] MEDS: fentaNYL 1,000 MCG/100 ML BAG 12.5 MCG IV ×3 (06:08→21:36)
[2023-08-12 06:36] LABS: Influenza A by IFA negative (Negative); Influenza B by IFA negative (Negative)
[2023-08-12 06:53] LABS: Alanine Aminotransferase 193 U/L (0-41); Albumin Level 3.5 g/dL (3.5-5.2); Alkaline Phosphatase 88 U/L (40-130); Blood Urea Nitrogen 51 mg/dL (6-20); Calcium 7.9 mg/dL (8.5-10.5); Carbon Dioxide 21 mmol/L (22-29); Chloride 89 mmol/L (98-107); Globulin 2.8 g/dL (1.3-4.6); Glomerular Filtration Rate 27.8 mL/min (90-130); Glucose 344 mg/dL (65-115); Magnesium 2.7 mg/dL (1.7-2.3); Osmolality Calculated 291 mOsm/kg (285-295); Sodium 127 mmol/L (136-145); Total Bilirubin 1.6 mg/dL (0.15-1.2); Total Protein 6.3 g/dL (6.6-8.7)
[2023-08-12 07:02] LABS: Anion Gap 22.8 (5-19); Aspartate Amino Transferase 235 U/L (0-40); Potassium 5.8 mmol/L (3.5-5.1)
[2023-08-12 07:04] LABS: Phosphorus 7.9 mg/dL (2.5-4.5)
[2023-08-12 07:08] LABS: SARS Covid-2 Antigen positive (Negative)
--- NOTE | 2023-08-12 07:22 | PC.NURSE ---
Patient Mother and father took home patients home meds
[2023-08-12] MEDS: EPINEPHrine 2.5 MG in sodium chloride 0.9% 250 ML 185.54 MG IV (07:23)
--- NOTE | 2023-08-12 08:30 | PC.NURSE ---
Alex gtt stopped per verbal order from Dr Mcgraw.
[2023-08-12] MEDS: heparin drip 25,000 UNIT/500 ML PREMIX 32.13 UNIT IV (08:33)
[2023-08-12] MEDS: EPINEPHrine 2.5 MG in sodium chloride 0.9% 250 ML 180 MG IV ×2 (08:33→10:38)
[2023-08-12] MEDS: sodium bicarbonate 150 MEQ in dextrose 5% 1,000 ML 100 MEQ IV ×2 (08:37→20:12)
[2023-08-12] MEDS: albumin 25 G/100 ML BAG 60 G IV ×2 (08:43→16:51)
[2023-08-12 08:58] LABS: Glucose Point of Care 301 mg/dL (70-110)
--- NOTE | 2023-08-12 10:36 | PC.NURSE ---
ART line, due to maximum pressor requirements, Dr. Mcgraw and Dr. Chahal both attempted arterial lines on patient with no success.
[2023-08-12] MEDS: insulin lispro 100 unit/1 mL SUBCUT ×3 (10:38→18:28)
[2023-08-12] MEDS: hydrocortisone 100 mg/2 mL SDV IVP (10:45)
[2023-08-12] MEDS: ticagrelor 90 mg Tablet PO ×2 (10:45→18:29)
[2023-08-12] MEDS: remdesivir 200 MG in sodium chloride 0.9% (100 ml) 60 ML 100 MG IV (11:00)
[2023-08-12] MEDS: dextrose 50% syringe 50 mL IVP (11:02)
[2023-08-12] MEDS: calcium gluconate 0.1 gm/mL 10% SDV 10mL 1 GM IVP (11:03)
[2023-08-12] MEDS: insulin regular-human 10 UNIT in SYRINGE 1 EACH IVP (11:03)
--- NOTE | 2023-08-12 11:31 | P.CONIM_ITS ---
Providers/Reason For Consult 2 Consulting Physician/Specialty*: [facility]/Nephrology Reason for Consult*: CAPRI Attending Physician: Willi Mcgraw MD Primary Care Provider: Karla Ryan MD History of Present Illness History of Present Illness Param Tejada is a 58 year old male With past medical history of diabetes, obesity, coronary artery disease status post PCI in the past ischemic cardiomyopathy, COPD sleep apnea presented with shortness of breath. Patient was intubated currently on 3 pressors in the ICU. Urine output has dropped and became anuric. He presented to the ER with shortness of breath and was noted to have V. tach and received shock, was started on amiodarone drip and intubated. Renal function continued to get worse and also developed severe metabolic acidosis and hyperkalemia. Medications/Allergies Home Medications Medication Instructions Recorded Confirmed Last Taken Type acetaminophen 500 mg tablet 1,000 mg PO TID PRN Pain 11/29/20 12/10/22 Unknown History aspirin 81 mg tablet,delayed 81 mg PO QAM 11/29/20 12/10/22 01/31/22 09:00 History release atorvastatin 80 mg tablet 80 mg PO QPM 11/29/20 12/10/22 01/30/22 History cetirizine 10 mg tablet 10 mg PO DAILY PRN Allergy Symptoms 11/29/20 12/10/22 01/31/22 History ipratropium 0.5 mg-albuterol 3 mg 3 ml inhalation QID PRN Shortness 11/29/20 12/10/22 Unknown History (2.5 mg base)/3 mL nebulization Of Breath soln metformin 500 mg tablet 500 mg PO BID 11/29/20 12/10/22 01/31/22 History methocarbamol 500 mg tablet 1,000 mg PO BEDTIME 11/29/20 12/10/22 01/30/22 History nitroglycerin 0.4 mg sublingual 0.4 mg sublingual Q5M PRN Chest 11/29/20 12/10/22 Unknown History tablet Pain ticagrelor 90 mg tablet (Brilinta) 90 mg PO BID 11/29/20 12/10/22 01/31/22 09:00 History tiotropium bromide 2.5 2 puff inhalation DAILY 11/29/20 12/10/22 08/04/21 History mcg/actuation mist for inhalation (Spiriva Respimat) tramadol 50 mg tablet 50 - 100 mg PO TID PRN Pain 11/29/20 12/10/22 Unknown History furosemide 40 mg tablet 40 mg PO QAM edema 03/09/21 12/10/22 01/31/22 History albuterol sulfate 90 mcg/actuation 2 puff inhalation QID PRN 12/12/21 12/10/22 Unknown History aerosol inhaler Shortness Of Breath fluticasone 250 mcg-salmeterol 50 1 inh inhalation BID 01/25/22 12/10/22 Unknown History mcg/dose blistr powdr for inhalation (Wixela Inhub) albuterol sulfate 2.5 mg/3 mL 2.5 mg inhalation Q4H PRN 01/31/22 12/10/22 Unknown History (0.083 %) solution for nebulization Shortness Of Breath cholecalciferol (vitamin D3) 25 3,000 unit PO BEDTIME 01/31/22 12/10/22 01/30/22 History mcg (1,000 unit) capsule (Vitamin D3) gabapentin 400 mg capsule 400 mg PO Q8H 01/31/22 12/10/22 01/31/22 09:00 History insulin glargine 100 unit/mL (3 68 unit SUBCUT BEDTIME 01/31/22 12/10/22 01/30/22 History mL) subcutaneous pen (Lantus Solostar U-100 Insulin) naloxone 4 mg/actuation nasal spray 4 mg intranasal Q2M PRN overdose 01/31/22 12/10/22 Unknown History sennosides 8.6 mg-docusate sodium 1 tab PO BEDTIME 01/31/22 12/10/22 Unknown History 50 mg tablet (Senna-S) ketoconazole 2 % shampoo 1 applic topical Q14D Seborrheic 04/24/22 12/10/22 Unknown Rx dermatitis #120 mL ketoconazole 2 % topical cream 1 applic topical BID #60 grams 04/24/22 12/10/22 Unknown Rx miconazole nitrate 2 % topical 1 applic topical DAILY #71 grams 04/24/22 12/10/22 Unknown Rx powder (Zeasorb AF) white petrolatum 41 % topical 1 applic topical DAILY PRN dry 04/24/22 12/10/22 Unknown Rx ointment (Aquaphor Healing) skin #99 grams metolazone 2.5 mg tablet 2.5 mg PO QAM #90 tabs 05/18/22 12/10/22 Unknown Rx metoprolol succinate 25 mg 12.5 mg (1/2 x 25 mg) PO DAILY #45 05/18/22 12/10/22 Unknown Rx tablet,extended release 24 hr tabs potassium chloride 20 mEq 40 meq PO DAILY 05/18/22 12/10/22 Unknown History tablet,extended release blood-glucose meter,continuous #1 ea 08/23/22 08/11/23 Unknown Rx (Dexcom G6 Electoral Officer) blood-glucose transmitter (Dexcom #3 ea 08/23/22 08/11/23 Unknown Rx G6 Transmitter device) empagliflozin 25 mg tablet 25 mg PO QAM #90 tabs 08/23/22 12/10/22 Unknown Rx (Jardiance) insulin aspart U-100 100 unit/mL 15 unit (0.15 mL) SUBCUT TID #40.5 08/23/22 12/10/22 Unknown Rx (3 mL) subcutaneous pen (Novolog mL FlexPen U-100 Insulin aspart) semaglutide 0.25 mg or 0.5 mg (2 0.25 mg (0.368 mL) SUBCUT Q7D 30 02/15/23 Unknown Rx mg/3 mL) subcutaneous pen injector days #2 mL (Ozempic) semaglutide 0.25 mg or 0.5 mg (2 0.5 mg (0.736 mL) SUBCUT Q7D 30 02/15/23 Unknown Rx mg/3 mL) subcutaneous pen injector days #4 mL (Ozempic) semaglutide 1 mg/dose (4 mg/3 mL) 1 mg (0.75 mL) SUBCUT Q7D 90 days 02/15/23 02/15/23 Unknown Rx subcutaneous pen injector (Ozempic) #9.75 mL blood-glucose sensor (Dexcom G6 #9 ea 04/19/23 08/11/23 Unknown Rx Sensor device) Allergies Allergy/AdvReac Type Severity Reaction Status Date / Time Sulfa (Sulfonamide Allergy Severe ALGY-Anaphy Verified 08/11/23 11:31 Antibiotics) laxis Current Medications Generic Name Dose Route Start Last Admin Trade Name Freq PRN Reason Stop Dose Admin Albuterol/Ipratropium 3 ml 08/11/23 16:05 08/13/23 04:09 Ipratropium-Albuterol 3 Ml Neb INHALATION 3 ml Q4H.RESPIRATORY VIRA Administration Aspirin 81 mg 08/12/23 06:00 08/13/23 05:26 Aspirin 81 Mg Ec Tablet PO 81 mg QAM VIRA Administration Atorvastatin Calcium 80 mg 08/11/23 18:00 08/12/23 18:29 Atorvastatin 40 Mg Tablet PO 80 mg QPM VIRA Administration CRRT Dialysis Solution 5,000 ml 08/12/23 16:30 08/12/23 17:37 Prismasol Bgk 4/2.5 - 5,000 Ml Bag CRRT 5,000 ml CONT VIRA Administration Protocol CRRT Dialysis Solution 5,000 ml 08/12/23 16:30 08/12/23 17:45 Prismasol Bgk 4/2.5 - 5,000 Ml Bag CRRT 5,000 ml CONT VIRA Administration Protocol CRRT Dialysis Solution 5,000 ml 08/12/23 16:30 08/12/23 17:49 Prismasol Bgk 4/2.5 - 5,000 Ml Bag CRRT 5,000 ml CONT VIRA Administration Protocol Dexamethasone 6 mg 08/12/23 14:45 08/12/23 16:18 Dexamethasone 10 Mg/Ml Inj IVP 6 mg Q24H VIRA Administration Heparin Sodium (Porcine) 0 unit 08/11/23 16:05 08/13/23 01:55 Heparin 5,000 Unit/Ml Inj 1 Ml IV 2,300 unit PRN PRN Administration Heparin weight-base protocol Protocol Fentanyl 1,000 mcg in 100 mls @ 0 mls/hr 08/11/23 12:30 08/13/23 04:29 Sublimaze IV 50 mcg/hr .Q0M VIRA 5 mls/hr Titration Protocol Per Protocol Midazolam HCl 100 mg in 100 mls @ 0 mls/hr 08/11/23 12:30 08/12/23 20:11 Versed IV 1 mg/hr .Q0M VIRA 1 mls/hr Titration Protocol Per Protocol norepinephrine 4 mg in 250 mls @ 0 mls/hr 08/11/23 12:30 08/13/23 04:27 Levophed IV 20 mcg/min .Q0M VIRA 75 mls/hr Administration Protocol Per Protocol Propofol 1,000 mg in 100 mls @ 0 mls/hr 08/11/23 13:30 08/11/23 23:00 Diprivan IV Infused .Q0M VIRA Titration Protocol Per Protocol Dexmedetomidine/Sodium Chloride 400 mcg in 100 mls @ 0 mls/hr 08/11/23 14:15 08/12/23 04:00 Precedex IV 0 mcg/kg/hr .Q0M VIRA 0 mls/hr Titration Protocol Per Protocol Heparin Sodium/Sodium Chloride 25,000 unit in 500 mls @ 0 mls/hr 08/11/23 16:05 08/13/23 01:57 Heparin Drip IV 19.21 unit/kg/hr .Q0M VIRA 44.1 mls/hr Titration Protocol Per Protocol Vasopressin 40 unit in 100 mls @ 0 mls/hr 08/11/23 16:05 08/13/23 05:13 Vasostrict IV 0.1 unit/min .Q0M VIRA 15 mls/hr Administration Protocol Per Protocol Albumin Human 25 g in 100 mls @ 60 mls/hr 08/11/23 16:05 08/13/23 04:09 Albumin IV Infused Q8H VIRA Infusion Meropenem 1,000 mg/ Sodium 50 mls @ 100 mls/hr 08/11/23 17:00 08/13/23 02:00 Chloride IV Infused Q8H VIRA Infusion Protocol Vancomycin/PEG/NADA/Lysine/Water 1,500 mg in 300 mls @ 200 mls/hr 08/11/23 18:00 08/12/23 22:22 Vancocin IV Infused Q24H VIRA Infusion Epinephrine HCl 2.5 mg/ Sodium 252.5 mls @ 0 mls/hr 08/11/23 21:45 08/13/23 05:43 Chloride IV 0.03 mcg/kg/min .Q0M VIRA 18 mls/hr Titration Protocol Per Protocol Sodium Bicarbonate 150 meq/ 1,150 mls @ 100 mls/hr 08/12/23 06:30 08/12/23 20:12 Dextrose IV 100 mls/hr .[id number] VIRA Administration Dopamine HCl/Dextrose 400 mg in 250 mls @ 19.136 mls/hr 08/12/23 13:00 08/12/23 13:45 Intropin Drip IV Not Given CONT VIRA Protocol 5 MCG/KG/MIN Insulin Human Lispro 0 unit 08/11/23 18:00 08/12/23 18:28 Insulin Lispro 100 Unit/1 Ml SUBCUT 10 unit TIDWM VIRA Administration Protocol Pantoprazole Sodium 40 mg 08/11/23 16:05 08/12/23 16:19 Pantoprazole 40 Mg Sdv IVP 40 mg Q24H VIRA Administration Sodium Chloride 1,000 - 7,000 ml 08/12/23 13:16 08/12/23 17:34 Sodium Chloride 0.9% 1,000 Ml Bag CRRT 2,000 ml PRN PRN Administration For priming CRRT Machine Ticagrelor 90 mg 08/11/23 18:00 08/12/23 18:29 Ticagrelor 90 Mg Tablet PO 90 mg BID VIRA Administration PFSH Acute 2 PFSH: Medical History Renal calculus Hypokalemia Hyponatremia Ischemic cardiomyopathy Personal history of nicotine dependence Hypertension Diabetes CHF (congestive heart failure) CAD (coronary artery disease) Hypoxia 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 2 diabetes mellitus Insulin dependent diabetes mellitus ICD (implantable cardioverter-defibrillator) in place Morbid obesity Obstructive sleep apnea Chronic hypercapnic respiratory failure Tobacco abuse COPD (chronic obstructive pulmonary disease) Ischemic cardiomyopathy Hyperlipidemia Hypertension ST elevation myocardial infarction (STEMI) of inferior wall Surgical History S/P knee replacement History of left knee replacement History of cardiac defibrillator placement History of coronary artery stent placement -hx of CAD with inferior wall PA s/p RCA stent, LAD stent Family History Father No problems noted. Mother No problems noted. Denies family history of CAD (coronary artery disease) Social History Smoking and tobacco/nicotine status: former use of tobacco/nicotine Alcohol intake: never Substance/Drug Use: never Marital status: Single Current occupational status: disabled Do you think of yourself as: Straight/Heterosexual Vitals/I&O/Wt Last Vital Signs Temp 98.9 F 08/13/23 04:00 Pulse 96 08/13/23 05:30 Resp 16 08/13/23 04:10 BP 130/78 08/13/23 05:30 Pulse Ox 97 08/13/23 05:30 O2 Del Method Mechanical Ventilation 08/13/23 04:09 FiO2 60 08/13/23 04:10 08/12/23 08/12/23 08/13/23 14:59 22:59 06:59 Intake Total 2185.551 / 2185.551 3418.766 / 5604.317 1221.365 / 6825.682 Output Total 70 / 70 1325 / 1395 Balance 2185.551 / 2185.551 3348.766 / 5534.317 -103.635 / 5430.682 Weight last 48 hrs Weight 123.5 kg Weight 102.058 kg Weight 114.759 kg Physical Exam 2 Urinary Catheter Management: [place]: Cath Placed During This Visit: yes Reason for Continuing Indwelling Catheter: Accurate Measurement of Urinary Output in Critically Ill Patients Urinary Catheter Date of Insertion: 08/11/23 Urinary Catheter Time of Insertion: 12:38 Data 08/13/23 05:43 08/13/23 01:11 Micro: Microbiology 08/11/23 12:14 Gram Stain - Final Sputum - Endotracheal Tube Aspirate Sputum Culture - Preliminary 08/11/23 05:22 Bacterial Antigens - Final Urine,Clean Catch A&P Assessment and plan (1) Acute renal failure: Plan 1. Acute kidney injury, in the setting of shock, cardiac arrest. Baseline creatinine was normal in November 2022. -She is currently on 3 pressors, intubated and sedated -Plans to start CRRT after catheter placed 2. Shock, cardiac arrest 3. COVID-pneumonia 4. History of coronary artery disease and stents 5. History of COPD Overall poor prognosis. Patient evaluated using audiovisual cart. Time spent 40 minutes. Coding Level of Care Code Acute Code for Chg Fwd Diagnoses Acute renal failure N17.9
[2023-08-12 11:54] LABS: Glucose Point of Care 421 mg/dL (70-110)
[2023-08-12 11:59] LABS: Basophils # 0.1 10^3/uL (0.0-0.1); Basophils % 0.4 %; Eosinophils # 0.2 10^3/uL (0.0-0.8); Eosinophils % 1.8 %; Hematocrit 43.8 % (37-53); Lymphocytes # 0.5 10^3/uL (0.8-4.8); Lymphocytes % 3.8 %; Mean Corpuscular HGB Conc 31.5 g/dL (30-55); Mean Corpuscular Hemoglobin 29.9 pg (27-33); Mean Corpuscular Volume 94.8 fl (82-101); Mean Platelet Volume 11.2 fL (7.4-10.4); Monocytes # 0.5 10^3/uL (0.2-0.9); Monocytes % 4.1 %; Neutrophils % 87.7 %; Nucleated Red Blood Cells # 0.1 /100WBC; Nucleated Red Blood Cells % 1.1 %; Platelet Count 284 10^3/cmm (157-399); Red Blood Count 4.62 10^6/uL (3.85-5.65); Red Cell Distribution Width 15.1 % (12.1-15.1); White Blood Count 12.76 10^3/uL (3.29-11.43)
[2023-08-12 12:10] LABS: Partial Thromboplastin Time 42.1 SECONDS (23.9-36.7)
[2023-08-12] MEDS: EPINEPHrine 2.5 MG in sodium chloride 0.9% 250 ML 100 MG IV (12:35)
[2023-08-12] MEDS: heparin 5,000 unit/mL INJ 1 mL IV ×2 (12:46→18:58)
[2023-08-12 13:13] LABS: ABG PCO2 55.5 mmHg (35-45); Alveolar-Arterial Oxygen Gradi 34.6 mmHg (5-10); Arterial Blood Gas Hematocrit 44.6 % (42-52); Base Excess ABG -9.4 mmol/L (-2.0-2.0); Blood Gas Allen Test Pos; Blood Gas Operator Identificat MONRO; Blood Gas Sample Site Radial, right; Blood Gas Sample Type Arterial; Carboxyhemoglobin 0.7 %THgb (0.4-20.1); HCO3 ABG 19.9 mmol/L (22-26); HGB O2 Sat 95.1 % (95-100); Methemoglobin 0.5 % (0.4-1.5); Oxygen Device VENT; Oxygen Saturation ABG 96.3; PO2 ABG 99.1 mmHg (80.0-100.0); PO2 FiO2 Ratio Arterial Blood 0; Potassium Level - ABG 5.3 mmol/L (3.5-5.0); Total Hemoglobin 14.6 g/dL (14-18)
[2023-08-12 13:14] LABS: ABG PH Result 7.16 (7.35-7.45)
[2023-08-12] MEDS: FUROsemide 10 mg/mL SDV 10mL 60 MG IVP (13:40)
--- NOTE | 2023-08-12 14:33 | P.PN_ITS ---
Subjective 2 Subjective: - Patient was examined multiple times th roughout the morning into the afternoon with a family meeting, except early in the morning he was seen, -Seen early this morning, currently on 3 pressors, 24 of Levophed, maxed, on vasopressin, on epinephrine drip, on bicarb drip, ? Currently on 60% FiO2, tidal volume 500, PEEP of 8 ? ABG this morning shows metabolic acidosis, ? Is on broad-spectrum antibiotic therapy, ? Overnight he was found to have COVID-19, likely COVID-19 pneumonia, I have started him on hydrocortisone, and remdesivir, ? Urine output was 950, will give him a dose of Lasix if his renal function does not improve, as he is starting to look fluid overloaded has generalized anasarca, 1+ pitting edema, ? Currently he is in multiorgan failure renal failure, from COVID-19 pneumonia, multifocal pneumonia, with septic shock ? Consulted nephrology, ? I had a family meeting with patient's mother and father, ? Patient's family advises me that about a month ago he was at [facility], and they had done an angiogram in his coronary arteries were no significant obstruction, they are not sure what his ejection fraction was, send ?but according to family over the last few days he was not feeling well he was short of breath, he actually did not show up to a dinner so family got worried,, ? I discussed with family that currently he is in acute hypoxic respiratory failure from COVID-19 pneumonia, multifocal pneumonia concerning for secondary bacterial pneumonia, with septic shock requiring multiple pressors, with multiorgan failure with concerns for acute renal failure, ? My big concern is is that he has underlying CAD, history of COPD, history of smoking family tells me he quit smoking a few years ago, he has multiple stents, he is obese, ? Currently his status is critical, prognosis is guarded, ? Currently he is at high risk of deterioration, cardiac arrest, for now family wants to keep him a full code, ? We discussed the possibility of dialysis, given his acute renal failure, now he is developing electrolyte abnormalities such as hyperkalemia which have had to give him D50 and calcium gluconate, insulin 4, he is developing sodium abnormalities developing anasarca, specifically with the sepsis, he is going to possibly need dialysis versus CRRT, discussed the risk and benefits of dialysis [employer], they voiced understanding, they are agreeable if required, we discussed potentially trying it as he is on 3 pressors he has a high risk of hypotension and morbidity and mortality with that but will potentially give him a trial based on his kidney function,, -Multiple attempts were tried to place a n arterial line, including with the help of anesthesia, unable to place, as patient is on multiple pressors ? Had a detailed discussion with the patient's family that currently his status is critical, he is on 3 pressors, maximum doses, multiorgan failure, COVID-19 pneumonia, multifocal pneumonia, respiratory failure, metabolic acidosis, he has a high risk of morbidity and mortality, they voiced understanding, shared decision making, for now they want to continue all interventions, and to give him an attempt, they understand he has multiple risk factors, including CAD morbid obesity, COPD, ? Spoke to nephrology, will do a trial of Lasix, as his urine output continues to decline, will attempt dialysis catheter placement and CRRT, ? Spoke to general surgery, consulted for dialysis catheter placement, ? Given 60 mg IV push Lasix, ? Will likely need CRRT Vitals/I&O/Wt Last Vital Signs Temp 99.3 F 08/11/23 18:39 Pulse 89 08/12/23 14:08 Resp 16 08/12/23 13:25 BP 129/96 08/12/23 05:40 Pulse Ox 94 08/12/23 13:25 O2 Del Method Mechanical Ventilation 08/12/23 11:43 FiO2 60 08/12/23 13:25 08/11/23 08/12/23 08/12/23 22:59 06:59 14:59 Intake Total 1369.837 / 7060.227 0608.668 / 4948.005 2127.634 / 2127.634 Output Total 950 / 950 Balance 1369.837 / 8960.093 5296.668 / 3998.005 2127.634 / 2127.634 Weight last 48 hrs Weight 102.058 kg Weight 114.759 kg Physical Exam 2 Const: COMMON NORMALS: no acute distress Eye: OTHER: Pupils pinpoint, minimally reactive to light Resp: COMMON NORMALS: normal respiratory effort, No retractions and No use of accessory muscles AUSCULTATION: crackles and wheezes Cardio: COMMON NORMALS: regular rate, regular rhythm, S1 normal heart sound present and S2 normal heart sound present RATE: regular rate RHYTHM: r egular rhythm HEART SOUNDS: S1 normal heart sound present and S2 normal heart sound present GI: COMMON NORMALS: Normal to inspection, nondistended, normoactive bowel sounds present and non-tender Extremity: NARRATIVE EXTREMITY EXAM: 1+ pitting edema, generalized anasarca Urinary Catheter Management: [place]: Cath Placed During This Visit: yes Reason for Continuing Indwelling Catheter: Accurate Measurement of Urinary Output in Critically Ill Patients Urinary Catheter Date of Insertion: 08/11/23 Urinary Catheter Time of Insertion: 12:38 Sepsis: Is patient septic: Yes Focused sepsis exam performed: Yes F ocused sepsis exam: DP PT pulses barely palpable, mottling of bilateral lower extremities up to the level of bilateral knees, cap refill greater than 3 seconds Date exam was performed: 08/12/23 Time exam was performed: 08:00 Data 08/12/23 11:40 08/12/23 00:50 Micro: Microbiology 08/11/23 12:14 Gram Stain - Final Sputum - Endotracheal Tube Aspirate Sputum Culture - Preliminary 08/11/23 05:22 Bacterial Antigens - Final Urine,Clean Catch A&P Assessment and plan (1) Pneumonia due to COVID-19 virus: (2) Multifocal pneumonia: (3) Acute renal failure: (4) Septic shock: (5) Multiorgan failure: (6) Acute hypoxic respiratory failure: (7) V-tach: (8) Shock: (9) NSTEMI (non-ST elevated myocardial infarction): (10) CAPRI (acute kidney injury): (11) 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 2 diabetes mellitus: (12) Morbid obesity: (13) CAD (coronary artery disease): (14) ICD (implantable cardioverter-defibrillator) in place: (15) Sustained ventricular tachycardia: (16) CHF (congestive heart failure): (17) Ischemic cardiomyopathy: (18) Systolic CHF, acute: (19) COPD (chronic obstructive pulmonary disease): (20) Obstructive sleep apnea: (21) Tobacco abuse: (22) Metabolic acidosis: (23) Lactic acidosis: (24) Hyperkalemia: (25) Hyponatremia: (26) Goals of care, counseling/discussion: Plan Ventricular tachycardia ? Status post cardioversion, Versed, fentanyl, ? Currently on amiodarone drip, ? Currently normal sinus rhythm -Cardiology consulted NSTEMI -According to family, coronary angiography done at the [facility], was within normal limits, stents no significant obstruction, no intervention required he also had a pacemaker check about a month ago which was within normal limits -Serial EKGs, starting troponins, telemetry monitoring, ? Aspirin, statin, Brilinta Conex ?cardiac echo ?heparin drip, ?cardiology consulted Acute hypoxic respiratory failure ? Likely secondary to COVID-19 pneumonia, multifocal bacterial pneumonia ? Some component related to systolic CHF, fluid overload ? Plan -Monitor respiratory status closely, ? Continue vancomycin can ? Continue meropenem ? Continue remdesivir, -decadron ? Follow blood cultures, sputum cultures ?hydrocortisone ? Heparin drip as above, ? Diuresis 60 mg IV push Lasix ? Currently intubated, sedated, minimize tidal volume, FiO2, ? Currently on fentanyl, Versed, Precedex for sedation, ? Daily spontaneous breathing trials, COVID-19 pneumonia, ? Continue remdesivir, ? Continue steroids Multifocal bacterial pneumonia, ? As above Septic shock, COVID-19 ? Currently on Levophed ? Add on vasopressin ? Currently on epinephrine drip ? Scheduled albumin ? Follow cultures Acute renal failure ? Likely secondary to sepsis, septic shock, COVID-19 ? Consulted nephrology, ? Plans on dialysis catheter placement, ? Likely requiring CRRT this afternoon ? Monitor urine output, Metabolic acidosis ? Likely secondary to sepsis, septic shock, acute renal failure, next Lactic acidosis ? Likely sec to sepsis, Hyperkalemia, ? Status post D50, insulin, calcium gluconate Type 2 diabetes mellitus, low-dose sliding scale COPD, no active wheezing, Full code ? Protonix for GI prophylaxis, ? Heparin drip for DVT prophylaxis, ? Prognosis guarded, status critical - Patient was examined multiple times throughout the morning into the afternoon with a family meeting, except early in the morning he was seen, -Seen early this morning, currently on 3 pressors, 24 of Levophed, maxed, on vasopressin, on epinephrine drip, on bicarb drip, ? Currently on 60% FiO2, tidal volume 500, PEEP of 8 ? ABG this morning shows metabolic acidosis, ? Is on broad-spectrum antibiotic therapy, ? Overnight he was found to have COVID-19, likely COVID-19 pneumonia, I have started him on hydrocortisone, and remdesivir, ? Urine output was 950, will give him a dose of Lasix if his renal function does not improve, as he is starting to look fluid overloaded has generalized anasarca, 1+ pitting edema, ? Currently he is in multiorgan failure renal failure, from COVID-19 pneumonia, multifocal pneumonia, with septic shock ? Consulted nephrology, ? I had a family meeting with patient's mother and father, ? Patient's family advises me that about a month ago he was at [facility], and they had done an angiogram in his coronary arteries were no significant obstruction, they are not sure what his ejection fraction was, send ?but according to family over the last few days he was not feeling well he was short of breath, he actually did not show up to a dinner so family got worried,, ? I discussed with family that currently he is in acute hypoxic respiratory failure from COVID-19 pneumonia, multifocal pneumonia concerning for secondary bacterial pneumonia, with septic shock requiring multiple pressors, with multiorgan failure with concerns for acute renal failure, ? My big concern is is that he has underlying CAD, history of COPD, history of smoking family tells me he quit smoking a few years ago, he has multiple stents, he is obese, ? Currently his status is critical, prognosis is guarded, ? Currently he is at high risk of deterioration, cardiac arrest, for now family wants to keep him a full code, ? We discussed the possibility of dialysis, given his acute renal failure, now he is developing electrolyte abnormalities such as hyperkalemia which have had to give him D50 and calcium gluconate, insulin 4, he is developing sodium abnormalities developing anasarca, specifically with the sepsis, he is going to possibly need dialysis versus CRRT, discussed the risk and benefits of dialysis [employer], they voiced understanding, they are agreeable if required, we discussed potentially trying it as he is on 3 pressors he has a high risk of hypotension and morbidity and mortality with that but will potentially give him a trial based on his kidney function,, ? Had a detailed discussion with the patient's family that currently his status is critical, he is on 3 pressors, maximum doses, multiorgan failure, COVID-19 pneumonia, multifocal pneumonia, respiratory failure, metabolic acidosis, he has a high risk of morbidity and mortality, they voiced understanding, shared decision making, for now they want to continue all interventions, and to give him an attempt, they understand he has multiple risk factors, including CAD morbid obesity, COPD, ? Spoke to nephrology, will do a trial of Lasix, as his urine output continues to decline, will attempt dialysis catheter placement and CRRT, ? Spoke to general surgery, consulted for dialysis catheter placement, ? Given 60 mg IV push Lasix, ? Will likely need CRRT Attestations 2 Medical Necessity Statement*: Patient requires hospitalization for multifocal pneumonia, COVID-19 pneumonia, septic shock, multiorgan failure, acute renal failure, fluid overload, encephalopathy Coding Level of Care Code Critical Care >/= 30 minutes Critical care time (in minutes): 65 The high probability of a clinically significant, sudden or life threatening deterioration, as referenced in this documentation, required my full and direct attention, intervention and personal management. The critical care time shown is in addition to time spent performing any reported separately billable procedures and includes the following: [x] Data and vital sign review and interpretation [x ] Patient assessment, examination and intervention [x] Medication orders and management [x] Patient/Family updates as able [x] Care Coordination and Documentation. Diagnoses Pneumonia due to COVID-19 virus U07.1; J12.82 Multifocal pneumonia J18.9 Acute renal failure N17.9 Septic shock A41.9; R65.21 Multiorgan failure Acute hypoxic respiratory failure J96.01 V-tach I47.20 Shock R57.9 NSTEMI (non-ST elevated myocardial infarction) I21.4 CAPRI (acute kidney injury) N17.9 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 2 diabetes mellitus E11.22; N18.2 Morbid obesity E66.01 Coronary artery disease involving [place] coronary artery of [place] heart without angina pectoris I25.10 ICD (implantable cardioverter-defibrillator) in place Z95.810 Sustained ventricular tachycardia I47.20 Acute on chronic systolic congestive heart failure I50.9 Ischemic cardiomyopathy I25.5 Systolic CHF, acute I50.21 COPD (chronic obstructive pulmonary disease) J44.9 Obstructive sleep apnea G47.33 Tobacco abuse Z72.0 Metabolic acidosis E87.20 Lactic acidosis E87.20 Hyperkalemia E87.5 Hyponatremia E87.1 Goals of care, counseling/discussion Z71.89
--- NOTE | 2023-08-12 15:10 | PM.CONSULT ---
Providers/Reason For Consult Consulting Physician/Specialty*: General surgery Reason for Consult*: Need for dialysis access Attending Physician: Willi Mgcraw MD Primary Care Provider: Karla Ryan MD History of Present Illness History of Present Illness Param Tejada is a 58 year old male admitted with coronary artery disease, COVID-pneumonia, no intubated and mechanically ventilated. With worsening acidosis and renal failure. I have been asked to place a temporary dialysis catheter after determination was made that patient will benefit from dialysis. Patient clinical condition precludes me from talking to the patient, I obtain consent from mother. Review of Systems General: Reports: ROS unobtainable due to endotracheal tube Medications/Allergies Home Medications Medication Instructions Recorded Confirmed Last Taken Type acetaminophen 500 mg tablet 1,000 mg PO TID PRN Pain 11/29/20 12/10/22 Unknown History aspirin 81 mg tablet,delayed 81 mg PO QAM 11/29/20 12/10/22 01/31/22 09:00 History release atorvastatin 80 mg tablet 80 mg PO QPM 11/29/20 12/10/22 01/30/22 History cetirizine 10 mg tablet 10 mg PO DAILY PRN Allergy Symptoms 11/29/20 12/10/22 01/31/22 History ipratropium 0.5 mg-albuterol 3 mg 3 ml inhalation QID PRN Shortness 11/29/20 12/10/22 Unknown History (2.5 mg base)/3 mL nebulization Of Breath soln metformin 500 mg tablet 500 mg PO BID 11/29/20 12/10/22 01/31/22 History methocarbamol 500 mg tablet 1,000 mg PO BEDTIME 11/29/20 12/10/22 01/30/22 History nitroglycerin 0.4 mg sublingual 0.4 mg sublingual Q5M PRN Chest 11/29/20 12/10/22 Unknown History tablet Pain ticagrelor 90 mg tablet (Brilinta) 90 mg PO BID 11/29/20 12/10/22 01/31/22 09:00 History tiotropium bromide 2.5 2 puff inhalation DAILY 11/29/20 12/10/22 08/04/21 History mcg/actuation mist for inhalation (Spiriva Respimat) tramadol 50 mg tablet 50 - 100 mg PO TID PRN Pain 11/29/20 12/10/22 Unknown History furosemide 40 mg tablet 40 mg PO QAM edema 03/09/21 12/10/22 01/31/22 History albuterol sulfate 90 mcg/actuation 2 puff inhalation QID PRN 12/12/21 12/10/22 Unknown History aerosol inhaler Shortness Of Breath fluticasone 250 mcg-salmeterol 50 1 inh inhalation BID 01/25/22 12/10/22 Unknown History mcg/dose blistr powdr for inhalation (Wixela Inhub) albuterol sulfate 2.5 mg/3 mL 2.5 mg inhalation Q4H PRN 01/31/22 12/10/22 Unknown History (0.083 %) solution for nebulization Shortness Of Breath cholecalciferol (vitamin D3) 25 3,000 unit PO BEDTIME 01/31/22 12/10/22 01/30/22 History mcg (1,000 unit) capsule (Vitamin D3) gabapentin 400 mg capsule 400 mg PO Q8H 01/31/22 12/10/22 01/31/22 09:00 History insulin glargine 100 unit/mL (3 68 unit SUBCUT BEDTIME 01/31/22 12/10/22 01/30/22 History mL) subcutaneous pen (Lantus Solostar U-100 Insulin) naloxone 4 mg/actuation nasal spray 4 mg intranasal Q2M PRN overdose 01/31/22 12/10/22 Unknown History sennosides 8.6 mg-docusate sodium 1 tab PO BEDTIME 01/31/22 12/10/22 Unknown History 50 mg tablet (Senna-S) ketoconazole 2 % shampoo 1 applic topical Q14D Seborrheic 04/24/22 12/10/22 Unknown Rx dermatitis #120 mL ketoconazole 2 % topical cream 1 applic topical BID #60 grams 04/24/22 12/10/22 Unknown Rx miconazole nitrate 2 % topical 1 applic topical DAILY #71 grams 04/24/22 12/10/22 Unknown Rx powder (Zeasorb AF) white petrolatum 41 % topical 1 applic topical DAILY PRN dry 04/24/22 12/10/22 Unknown Rx ointment (Aquaphor Healing) skin #99 grams metolazone 2.5 mg tablet 2.5 mg PO QAM #90 tabs 05/18/22 12/10/22 Unknown Rx metoprolol succinate 25 mg 12.5 mg (1/2 x 25 mg) PO DAILY #45 05/18/22 12/10/22 Unknown Rx tablet,extended release 24 hr tabs potassium chloride 20 mEq 40 meq PO DAILY 05/18/22 12/10/22 Unknown History tablet,extended release blood-glucose meter,continuous #1 ea 08/23/22 08/11/23 Unknown Rx (Dexcom G6 Motor Grader Rough Grade) blood-glucose transmitter (Dexcom #3 ea 08/23/22 08/11/23 Unknown Rx G6 Transmitter device) empagliflozin 25 mg tablet 25 mg PO QAM #90 tabs 08/23/22 12/10/22 Unknown Rx (Jardiance) insulin aspart U-100 100 unit/mL 15 unit (0.15 mL) SUBCUT TID #40.5 08/23/22 12/10/22 Unknown Rx (3 mL) subcutaneous pen (Novolog mL FlexPen U-100 Insulin aspart) semaglutide 0.25 mg or 0.5 mg (2 0.25 mg (0.368 mL) SUBCUT Q7D 30 02/15/23 Unknown Rx mg/3 mL) subcutaneous pen injector days #2 mL (Ozempic) semaglutide 0.25 mg or 0.5 mg (2 0.5 mg (0.736 mL) SUBCUT Q7D 30 02/15/23 Unknown Rx mg/3 mL) subcutaneous pen injector days #4 mL (Ozempic) semaglutide 1 mg/dose (4 mg/3 mL) 1 mg (0.75 mL) SUBCUT Q7D 90 days 02/15/23 02/15/23 Unknown Rx subcutaneous pen injector (Ozempic) #9.75 mL blood-glucose sensor (Dexcom G6 #9 ea 04/19/23 08/11/23 Unknown Rx Sensor device) Allergies Allergy/AdvReac Type Severity Reaction Status Date / Time Sulfa (Sulfonamide Allergy Severe ALGY-Anaphy Verified 08/11/23 11:31 Antibiotics) laxis Current Medications Generic Name Dose Route Start Last Admin Trade Name Freq PRN Reason Stop Dose Admin Albuterol/Ipratropium 3 ml 08/11/23 16:05 08/12/23 11:48 Ipratropium-Albuterol 3 Ml Neb INHALATION 3 ml Q4H.RESPIRATORY VIRA Administration Aspirin 81 mg 08/12/23 06:00 08/12/23 05:49 Aspirin 81 Mg Ec Tablet PO 81 mg QAM VIRA Administration Atorvastatin Calcium 80 mg 08/11/23 18:00 08/11/23 18:04 Atorvastatin 40 Mg Tablet PO Not Given QPM VIRA Heparin Sodium (Porcine) 0 unit 08/11/23 16:05 08/12/23 12:46 Heparin 5,000 Unit/Ml Inj 1 Ml IV 4,600 unit PRN PRN Administration Heparin weight-base protocol Protocol Fentanyl 1,000 mcg in 100 mls @ 0 mls/hr 08/11/23 12:30 08/12/23 13:36 Sublimaze IV 125 mcg/hr .Q0M VIRA 12.5 mls/hr Administration Protocol Per Protocol Midazolam HCl 100 mg in 100 mls @ 0 mls/hr 08/11/23 12:30 08/12/23 05:30 Versed IV 3 mg/hr .Q0M VIRA 3 mls/hr Administration Protocol Per Protocol norepinephrine 4 mg in 250 mls @ 0 mls/hr 08/11/23 12:30 08/12/23 13:20 Levophed IV 24 mcg/min .Q0M VIRA 90 mls/hr Administration Protocol Per Protocol Propofol 1,000 mg in 100 mls @ 0 mls/hr 08/11/23 13:30 08/11/23 23:00 Diprivan IV Infused .Q0M VIRA Titration Protocol Per Protocol Dexmedetomidine/Sodium Chloride 400 mcg in 100 mls @ 0 mls/hr 08/11/23 14:15 08/12/23 04:00 Precedex IV 0 mcg/kg/hr .Q0M VIRA 0 mls/hr Titration Protocol Per Protocol Heparin Sodium/Sodium Chloride 25,000 unit in 500 mls @ 0 mls/hr 08/11/23 16:05 08/12/23 12:47 Heparin Drip IV 16.16 unit/kg/hr .Q0M VIRA 37.1 mls/hr Titration Protocol Per Protocol Vasopressin 40 unit in 100 mls @ 0 mls/hr 08/11/23 16:05 08/12/23 08:36 Vasostrict IV 0.1 unit/min .Q0M VIRA 15 mls/hr Administration Protocol Per Protocol Albumin Human 25 g in 100 mls @ 60 mls/hr 08/11/23 16:05 08/12/23 11:18 Albumin IV Infused Q8H VIRA Infusion Meropenem 1,000 mg/ Sodium 50 mls @ 100 mls/hr 08/11/23 17:00 08/12/23 10:05 Chloride IV Infused Q8H VIRA Infusion Protocol Vancomycin/PEG/NADA/Lysine/Water 1,500 mg in 300 mls @ 200 mls/hr 08/11/23 18:00 08/11/23 20:05 Vancocin IV Infused Q24H VIRA Infusion Epinephrine HCl 2.5 mg/ Sodium 252.5 mls @ 0 mls/hr 08/11/23 21:45 08/12/23 13:44 Chloride IV 0.1 mcg/kg/min .Q0M VIRA 60 mls/hr Titration Protocol Per Protocol Sodium Bicarbonate 150 meq/ 1,150 mls @ 100 mls/hr 08/12/23 06:30 08/12/23 08:37 Dextrose IV 100 mls/hr .[id number] VIRA Administration Dopamine HCl/Dextrose 400 mg in 250 mls @ 19.136 mls/hr 08/12/23 13:00 08/12/23 13:45 Intropin Drip IV Not Given CONT VIRA Protocol 5 MCG/KG/MIN Insulin Human Lispro 0 unit 08/11/23 18:00 08/12/23 12:19 Insulin Lispro 100 Unit/1 Ml SUBCUT 14 unit TIDWM VIRA Administration Protocol Pantoprazole Sodium 40 mg 08/11/23 16:05 08/11/23 16:49 Pantoprazole 40 Mg Sdv IVP 40 mg Q24H VIRA Administration Ticagrelor 90 mg 08/11/23 18:00 08/12/23 10:45 Ticagrelor 90 Mg Tablet PO 90 mg BID VIRA Administration PFSH Acute PFSH: Medical History Renal calculus Hypokalemia Hyponatremia Ischemic cardiomyopathy Personal history of nicotine dependence Hypertension Diabetes CHF (congestive heart failure) CAD (coronary artery disease) Hypoxia 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 2 diabetes mellitus Insulin dependent diabetes mellitus ICD (implantable cardioverter-defibrillator) in place Morbid obesity Obstructive sleep apnea Chronic hypercapnic respiratory failure Tobacco abuse COPD (chronic obstructive pulmonary disease) Ischemic cardiomyopathy Hyperlipidemia Hypertension ST elevation myocardial infarction (STEMI) of inferior wall Surgical History S/P knee replacement History of left knee replacement History of cardiac defibrillator placement History of coronary artery stent placement -hx of CAD with inferior wall ID s/p RCA stent, LAD stent Family History Father No problems noted. Mother No problems noted. Denies family history of CAD (coronary artery disease) Social History Smoking and tobacco/nicotine status: former use of tobacco/nicotine Alcohol intake: never Substance/Drug Use: never Marital status: Single Current occupational status: disabled Do you think of yourself as: Straight/Heterosexual Vitals/I&O/Wt Last Vital Signs Temp 99.3 F 08/11/23 18:39 Pulse 89 08/12/23 14:08 Resp 16 08/12/23 13:25 BP 129/96 08/12/23 05:40 Pulse Ox 94 08/12/23 13:25 O2 Del Method Mechanical Ventilation 08/12/23 11:43 FiO2 60 08/12/23 13:25 08/12/23 08/12/23 08/12/23 06:59 14:59 22:59 Intake Total 3502.668 / 4948.005 2127.634 / 2127.634 Output Total 950 / 950 Balance 2552.668 / 3998.005 2127.634 / 2127.634 Weight last 48 hrs Weight 225 lb Weight 253 lb Physical Exam Narrative: Intubated and sedated Mechanically ventilated Abdomen distended, obese Peripheral edema Urinary Catheter Management: Burciaga: Cath Placed During This Visit: yes Reason for Continuing Indwelling Catheter: Accurate Measurement of Urinary Output in Critically Ill Patients Urinary Catheter Date of Insertion: 08/11/23 Urinary Catheter Time of Insertion: 12:38 Data 08/12/23 11:40 08/12/23 00:50 Micro: Microbiology 08/11/23 12:14 Gram Stain - Final Sputum - Endotracheal Tube Aspirate Sputum Culture - Preliminary 08/11/23 05:22 Bacterial Antigens - Final Urine,Clean Catch A&P Assessment and plan (1) Morbid obesity: (2) Multiorgan failure: (3) Hypertension: Qualifiers: Hypertension type: essential hypertension Qualified Code(s): I10 - Essential (primary) hypertension (4) Acute hypotension: (5) CAPRI (acute kidney injury): (6) Lactic acidosis: Plan After complete history physical examination and review of all available clinical data the following is my assessment. Patient will benefit from dialysis catheter placement for hemodialysis. I discussed all the risk and benefits of placement with the mother of the patient over the phone, these risk include but are not limited to bleeding, infection, need for additional interventions, injury to the surrounding structures, retroperitoneal hematoma, bowel injury, catheter nonfunction, DVT. After discussion of risk and benefits mother wants to proceed with catheter placement, consent was obtained and verified by the nursing staff. Catheter was placed in the left groin without complications. Can be used for dialysis as needed. Coding Level of Care Code 67407 Diagnoses Morbid obesity E66.01 Multiorgan failure Essential hypertension I10 Hypertension type: essential hypertension Acute hypotension I95.9 CAPRI (acute kidney injury) N17.9 Lactic acidosis E87.20
--- NOTE | 2023-08-12 15:13 | PM.ACPR ---
Procedure/Consent Time out: Time Out Performed: Yes Consent: Additional Consent Information: Consent obtained from patient's mother as documented in my previous note Procedure Narrative: Patient was placed in the supine position, bilateral groins were prepped and draped in the usual sterile fashion. Timeout was conducted. Right common femoral vein was identified with ultrasound and access with a 18-gauge needle, at this point I attempted to advance the wire but it was noted to have difficulty on advancement, therefore I decannulated the brain and proceeded to seek an alternative side. After ultrasound of the left groin, femoral appear widely open, therefore I proceeded to use the 18-gauge needle to cannulate this pain under direct ultrasound visualization seen the needle tip entering the vein a wire was advanced and the needle was removed, post excision of the wire was verified with ultrasound, a 0.5 cm incision was made at the wire insertion site in the skin, the tract was dilated with subsequent sizes of dilators, I then advanced a 20 cm double-lumen dialysis catheter. The wire was removed. Adequate blood return was noted for both planus and arterial port, both ports were flushing. The catheter was fixed in place with #3-0 silk Biopatch and sterile dressing was applied. At the end of the procedure patient remained stable in the ICU. Acute Procedures Epistaxis Control: Time out performed: Yes
[2023-08-12] MEDS: dexamethasone 10 mg/mL INJ 6 MG IVP (16:18)
[2023-08-12] MEDS: pantoprazole 40 mg SDV IVP (16:19)
[2023-08-12] MEDS: EPINEPHrine 2.5 MG in sodium chloride 0.9% 250 ML 60 MG IV ×2 (17:18→22:00)
[2023-08-12] MEDS: sodium chloride 0.9% 1,000 mL Bag CRRT (17:34)
[2023-08-12] MEDS: PrismaSol BGK 4/2.5 - 5,000 mL Bag 5000 ML CRRT ×3 (17:37→17:49)
[2023-08-12 18:04] LABS: Glucose Point of Care 331 mg/dL (70-110)
[2023-08-12] MEDS: vancomycin 1,500 MG/300 ML PIGGYBACK 200 MG IV (18:29)
[2023-08-12] MEDS: atorvastatin 40 mg Tablet 80 MG PO (18:29)
--- NOTE | 2023-08-12 19:45 | PC.NURSE ---
Shift summary: Pt remains intubated and on sedation. FIO2 remains at 60%. Peep increased 10. Tidal Volume decreased to 450 this shift. No purposeful movements of any kind noted. No movement of extremities noted this shift. His Pupils are equal and equally reactive. No change to fentanyl gtt at 125mcg/hr and Versed gtt at 1mg/hr.. Vasopressin, Levophed and Epinephrine still infusing at high rates. Epinephrine has been reduced to 15mcg/min this shift. Heparin gtt titrated per protocol. He was started on Bicarb IVF. No ectopy or abnormal heart rate/rhythms noted this shift. Dark mottling noted on his lower extremities. Left greater than right. HD cath insertion done today. Art line insertion attempted several times, unsuccessful. Urine ouput scant at 70ml this shift, no cloudiness or sediment noted. CRRT started right at end of shift. His parents have been at bedside, Dr Mcgraw spoke with them
[2023-08-12 20:08] LABS: Albumin Level 3.5 g/dL (3.5-5.2); Anion Gap 23.7 (5-19); Blood Urea Nitrogen 53 mg/dL (6-20); Carbon Dioxide 20 mmol/L (22-29); Chloride 85 mmol/L (98-107); Glomerular Filtration Rate 18.6 mL/min (90-130); Glucose 418 mg/dL (65-115); Magnesium 2.1 mg/dL (1.7-2.3); Phosphorus 6.6 mg/dL (2.5-4.5); Potassium 5.7 mmol/L (3.5-5.1); Sodium 123 mmol/L (136-145)
--- NOTE | 2023-08-12 21:30 | PC.NURSE ---
CRRT At 2020, while attempting to change effluent bag on CRRT machine, Error code 2: Communication Error stopped therapy and stated therapy could no longer continue. Blood attempted to be returned manually with no success. CRRT machine powered off and restarted with intentions of priming new cassette to resume therapy, however, Error code 2 occurred again. [employer] machine support contacted; nutrition representative recommended to turn machine off and back on to resume therapy. This action already attempted with no success. Apricot Packer further stated to tag out CRRT machine for maintenance and no longer resume therapy. Dr. Roberts notified; no new orders received.
[2023-08-12] MEDS: heparin drip 25,000 UNIT/500 ML PREMIX 42.1 UNIT IV (23:43)
[2023-08-13] VITALS (99 sets, daily range): BP systolic 74–143; BP diastolic 50–88; PULSE 80–120; RESP 16–18; TEMP 36.9–37.9; O2SAT 89–99; BMI 45.3
[2023-08-13] MEDS: ipratropium-albuterol 3 mL Neb INHALATION ×6 (00:10→20:56)
[2023-08-13] MEDS: albumin 25 G/100 ML BAG 60 G IV ×4 (00:22→23:36)
[2023-08-13] MEDS: meropenem 1,000 MG in sodium chloride 0.9% (plus) 50 ML 100 MG IV ×3 (00:23→17:03)
[2023-08-13 00:49] LABS: Glucose Point of Care 423 mg/dL (70-110)
[2023-08-13] MEDS: norepinephrine 4 MG/250 ML BAG 75 MG IV ×4 (01:06→11:30)
[2023-08-13 01:40] LABS: Partial Thromboplastin Time 53.6 SECONDS (23.9-36.7)
--- NOTE | 2023-08-13 01:45 | PC.NURSE ---
Insulin Patient's blood sugar [address] Haley notified; orders received to change insulin sliding scale from low dose to high dose scale TID subq as well as to administer 15 units novolog (changed to humalog per medication order) subq once now. See MAR for details.
[2023-08-13 01:49] LABS: Albumin Level 3.4 g/dL (3.5-5.2); Anion Gap 20.8 (5-19); Blood Urea Nitrogen 52 mg/dL (6-20); Carbon Dioxide 23 mmol/L (22-29); Chloride 85 mmol/L (98-107); Glucose 453 mg/dL (65-115); Magnesium 2.1 mg/dL (1.7-2.3); Potassium 5.8 mmol/L (3.5-5.1); Sodium 123 mmol/L (136-145)
[2023-08-13] MEDS: insulin lispro 100 unit/1 mL 15 UNIT SUBCUT (01:54)
[2023-08-13] MEDS: heparin 5,000 unit/mL INJ 1 mL IV (01:55)
[2023-08-13 03:13] LABS: Glucose Point of Care 438 mg/dL (70-110)
[2023-08-13] MEDS: EPINEPHrine 2.5 MG in sodium chloride 0.9% 250 ML 36 MG IV (04:06)
[2023-08-13 04:33] LABS: ABG PCO2 57.9 mmHg (35-45); ABG PH Result 7.21 (7.35-7.45); Arterial Blood Gas Hematocrit 39.8 % (42-52); Base Excess ABG -5.5 mmol/L (-2.0-2.0); Blood Gas Allen Test Pos; Blood Gas Sample Type Arterial; HCO3 ABG 23.1 mmol/L (22-26)
[2023-08-13 04:34] LABS: Blood Gas Operator Identificat BD; Blood Gas Sample Site Brachial, left; Blood Gas Tidal Volume 0.45; Oxygen Device VENT; PO2 FiO2 Ratio Arterial Blood 0
[2023-08-13] MEDS: vasopressin 40 UNIT/100 ML PREMIX 15 UNIT IV ×2 (05:13→12:11)
[2023-08-13] MEDS: aspirin 81 mg EC Tablet PO (05:26)
[2023-08-13 05:59] LABS: Basophils % 0.3 %; Eosinophils % 0.1 %; Lymphocytes # 0.5 10^3/uL (0.8-4.8); Lymphocytes % 3.7 %; Mean Corpuscular HGB Conc 31.3 g/dL (30-55); Mean Corpuscular Volume 92.9 fl (82-101); Mean Platelet Volume 11.4 fL (7.4-10.4); Monocytes # 0.4 10^3/uL (0.2-0.9); Monocytes % 2.8 %; Neutrophils # 13.05 10^3/uL (1.8-7.7); Neutrophils % 91.6 %; Nucleated Red Blood Cells # 0.1 /100WBC; Nucleated Red Blood Cells % 0.6 %; Platelet Count 274 10^3/cmm (157-399); Red Cell Distribution Width 15.2 % (12.1-15.1); White Blood Count 14.24 10^3/uL (3.29-11.43)
[2023-08-13 06:20] LABS: Lactate (Lactic Acid level) 2.9 mmol/L (0.5-2.2)
[2023-08-13 06:24] LABS: NT Pro B Type Natriuretic Pept 24903 pg/mL (0-125); Procalcitonin 21.87 ng/mL (0-0.5)
[2023-08-13 06:35] LABS: Albumin Level 3.3 g/dL (3.5-5.2); Alkaline Phosphatase 95 U/L (40-130); Anion Gap 24.3 (5-19); Blood Urea Nitrogen 54 mg/dL (6-20); Calcium 6.8 mg/dL (8.5-10.5); Carbon Dioxide 21 mmol/L (22-29); Chloride 82 mmol/L (98-107); Globulin 2.8 g/dL (1.3-4.6); Glomerular Filtration Rate 17.4 mL/min (90-130); Glucose 474 mg/dL (65-115); Magnesium 2.1 mg/dL (1.7-2.3); Osmolality Calculated 290 mOsm/kg (285-295); Potassium 5.3 mmol/L (3.5-5.1); Sodium 122 mmol/L (136-145); Total Bilirubin 4.4 mg/dL (0.15-1.2); Total Protein 6.1 g/dL (6.6-8.7)
[2023-08-13 06:47] LABS: Alanine Aminotransferase 3017 U/L (0-41)
[2023-08-13 06:48] LABS: C Reactive Protein 336.5 mg/L (0.0-4.9)
--- NOTE | 2023-08-13 07:00 | XRR_ITS ---
PROCEDURE INFORMATION: Exam: XR Chest Exam date and time: 08/13/2023 8:37 AM Age: 58 years old Clinical indication: Shortness of breath; Prior surgery; Surgery date: 6+ months; Surgery type: Defib; Additional info: SOB TECHNIQUE: Imaging protocol: Radiologic exam of the chest. Views: 1 view. COMPARISON: CR (CHEST, ) 08/12/2023 5:38 AM FINDINGS: Tubes, catheters and devices: Lines and tubes stable. Lungs: See Heart/Mediastinum finding. Pleural spaces: Unremarkable. No pleural effusion. No pneumothorax. Heart/Mediastinum: Cardiomegaly. Pulmonary vascular congestion/interstitial edema. Bones/joints: Unremarkable. XR/XR chest 1V portable [id number] IMPRESSION: 1. Lines and tubes stable. 2. Cardiomegaly with interstitial and alveolar opacities.
[2023-08-13] MEDS: sodium bicarbonate 150 MEQ in dextrose 5% 1,000 ML 100 MEQ IV (07:43)
[2023-08-13 08:17] LABS: Aspartate Amino Transferase 3920 U/L (0-40); Creatine Phosphokinase 2492 U/L (39-308)
[2023-08-13 08:23] LABS: Glucose Point of Care 375 mg/dL (70-110)
--- NOTE | 2023-08-13 08:29 | USR_ITS ---
PROCEDURE INFORMATION: Exam: US Abdomen, Limited; Right Upper Quadrant Exam date and time: 08/13/2023 9:44 AM Age: 58 years old Clinical indication: Abdominal pain; Generalized; Additional info: Galbldder and liver TECHNIQUE: Imaging protocol: Real time ultrasound of the abdomen with image documentation. Limited exam focused on the right upper quadrant. COMPARISON: US abdomen complete* [id number] 12/21/2021 9:24 AM FINDINGS: Liver: Hepatomegaly. Fatty infiltration of the liver. Gallbladder: Gallbladder wall thickening. This is likely related to ascites. No gallstones are appreciated. Biliary ducts: Normal. No stones. No dilation. Pancreas: Visualized pancreas is unremarkable. Right kidney: Normal. No mass. No hydronephrosis. Intraperitoneal space: Abdominal ascites. US/US abdomen limited [id number] IMPRESSION: 1. Hepatomegaly with fatty infiltration of the liver. 2. No gallstones are appreciated. Gallbladder wall thickening. This is likely related to abdominal ascites.
[2023-08-13 08:37] LABS: Anion Gap 20.1 (5-19); Blood Urea Nitrogen 50 mg/dL (6-20); Calcium 6.7 mg/dL (8.5-10.5); Carbon Dioxide 23 mmol/L (22-29); Chloride 84 mmol/L (98-107); Creatinine Clr Calc Pharmacy 26.2399; Glomerular Filtration Rate 16.9 mL/min (90-130); Glucose 446 mg/dL (65-115); Magnesium 2.1 mg/dL (1.7-2.3); Phosphorus 7.1 mg/dL (2.5-4.5); Potassium 5.1 mmol/L (3.5-5.1); Sodium 122 mmol/L (136-145)
[2023-08-13 08:39] LABS: Partial Thromboplastin Time 136.7 SECONDS (23.9-36.7)
[2023-08-13 09:08] LABS: Amylase 161 U/L (28-100); Gamma Glutamyl Transferase 58 U/L (8-61); Lipase 175 U/L (13-60)
[2023-08-13] MEDS: ticagrelor 90 mg Tablet PO ×2 (09:24→17:58)
[2023-08-13] MEDS: remdesivir 100 MG in sodium chloride 0.9% (100 ml) 80 ML IV (09:24)
[2023-08-13] MEDS: insulin lispro 100 unit/1 mL SUBCUT ×2 (09:24→12:08)
[2023-08-13] MEDS: fentaNYL 1,000 MCG/100 ML BAG 5 MCG IV (10:11)
[2023-08-13 12:02] LABS: Glucose Point of Care 383 mg/dL (70-110)
[2023-08-13] MEDS: insulin glargine 100 units/1 mL 10 UNIT SUBCUT (12:08)
--- NOTE | 2023-08-13 13:24 | P.PN_ITS ---
Subjective 2 Subjective: s/p CRRT for 1.5 hours last night stopped CRRT due to machine malfunction Medications: Reviewed: Yes Vitals/I&O/Wt Last Vital Signs Temp 98.9 F 08/13/23 04:00 Pulse 90 08/13/23 11:59 Resp 18 08/13/23 12:00 BP 130/78 08/13/23 05:30 Pulse Ox 95 08/13/23 12:00 O2 Del Method Mechanical Ventilation 08/13/23 11:59 FiO2 50 08/13/23 12:00 08/12/23 08/13/23 08/13/23 22:59 06:59 14:59 Intake Total 3438.766 / 5624.317 1226.465 / 6850.782 2648.378 / 2648.378 Output Total 380 / 380 1325 / 1705 Balance 3058.766 / 5244.317 -98.535 / 5145.782 2648.378 / 2648.378 Weight last 48 hrs Weight 123.5 kg Weight 123.5 kg Weight 102.058 kg Physical Exam 2 Urinary Catheter Management: Burciaga: Cath Placed During This Visit: yes Reason for Continuing Indwelling Catheter: Accurate Measurement of Urinary Output in Critically Ill Patients Urinary Catheter Date of Insertion: 08/11/23 Urinary Catheter Time of Insertion: 12:38 Data 08/13/23 05:43 08/13/23 08:08 Micro: Microbiology 08/11/23 12:14 Gram Stain - Final Sputum - Endotracheal Tube Aspirate Sputum Culture - Final Staphylococcus aureus 08/11/23 05:22 Urine Culture - Final Urine,Clean Catch 08/11/23 05:22 Bacterial Antigens - Final Urine,Clean Catch A&P Assessment and plan (1) Acute renal failure: Plan 1. Acute kidney injury, in the setting of shock, cardiac arrest. Baseline creatinine was normal in November 2022. -She is currently on 3 pressors, intubated and sedated -s/p CRRT for 1.5 hours last night stopped CRRT due to machine malfunction - Will assess for HD 2. Shock, cardiac arrest 3. COVID-pneumonia 4. History of coronary artery disease and stents 5. History of COPD Overall poor prognosis. Patient evaluated using audiovisual cart. Time spent 20 minutes. Attestations 2 Medical Necessity Statement*: per medicine Coding Level of Care Code Acute Code for Chg Fwd Diagnoses Acute renal failure N17.9
--- NOTE | 2023-08-13 14:19 | PC.NURSE ---
Aberrant heart beats noted on monitor. 6 beats ventricular block then he went back into sinus rhythm for a few beats then 5 beats of VT then back to sinus rhythm. No changes in BP or 02 sats.
[2023-08-13 14:20] LABS: Anion Gap 21.6 (5-19); Blood Urea Nitrogen 58 mg/dL (6-20); Calcium 6.7 mg/dL (8.5-10.5); Carbon Dioxide 25 mmol/L (22-29); Chloride 82 mmol/L (98-107); Glomerular Filtration Rate 16.4 mL/min (90-130); Glucose 432 mg/dL (65-115); Osmolality Calculated 293 mOsm/kg (285-295); Potassium 4.6 mmol/L (3.5-5.1); Sodium 124 mmol/L (136-145)
[2023-08-13] MEDS: heparin 5,000 unit/mL INJ 1 mL 5000 UNIT SUBCUT ×2 (14:43→21:13)
[2023-08-13] MEDS: dexamethasone 10 mg/mL INJ 6 MG IVP (14:44)
[2023-08-13] MEDS: norepinephrine 4 MG/250 ML BAG 19 MG IV (14:54)
[2023-08-13] MEDS: pantoprazole 40 mg SDV IVP (17:03)
--- NOTE | 2023-08-13 17:32 | P.PN_ITS ---
Subjective 2 Subjective: Patient was seen this morning, remains critically ill, remains on 3 pressors, on 55% FiO2, urine output has improved, it was a trial of CRRT overnight, but due to machine error it could not be continued,, currently intubated, sedated on mechanical ventilation, continues to have mild mottling of bilateral lower extremities, has evidence of shock liver, elevated blood sugars, yesterday patient had dialysis catheter placement by general surgery after consultation, Vitals/I&O/Wt Last Vital Signs Temp 99 F 08/13/23 13:30 Pulse 95 08/13/23 16:00 Resp 18 08/13/23 16:00 BP 125/68 08/13/23 15:15 Pulse Ox 96 08/13/23 16:00 O2 Del Method Mechanical Ventilation 08/13/23 16:00 FiO2 45 08/13/23 16:00 08/13/23 08/13/23 08/13/23 06:59 14:59 22:59 Intake Total 1226.465 / 6850.782 2980.628 / 2980.628 35.225 / 3015.853 Output Total 1325 / 1705 Balance -98.535 / 5145.782 2980.628 / 2980.628 35.225 / 3015.853 Weight last 48 hrs Weight 123.5 kg Weight 123.5 kg Weight 102.058 kg Physical Exam 2 Const: COMMON NORMALS: no acute distress OTHER: Intubated, sedated, on mechanical ventilation Resp: COMMON NORMALS: normal respiratory effort, No retractions, No use of accessory muscles and clear to auscultation bilaterally AUSCULTATION: clear to auscultation bilaterally Cardio: COMMON NORMALS: regular rate, regular rhythm, S1 normal heart sound present and S2 normal heart sound present RATE: regular rate RHYTHM: r egular rhythm HEART SOUNDS: S1 normal heart sound present and S2 normal heart sound present GI: COMMON NORMALS: Normal to inspection, nondistended, normoactive bowel sounds present and non-tender Extremity: COMMON NORMALS: no pedal edema Urinary Catheter Management: Burciaga: Cath Placed During This Visit: yes Reason for Continuing Indwelling Catheter: Accurate Measurement of Urinary Output in Critically Ill Patients Urinary Catheter Date of Insertion: 08/11/23 Urinary Catheter Time of Insertion: 12:38 Sepsis: Is patient septic: Yes Focused sepsis exam performed: Yes F ocused sepsis exam: DP PT pulses barely palpable, cap refill greater than 3 seconds, mild mottling bilateral lower extremities, bluish hue to bilateral toes Data 08/13/23 05:43 08/13/23 13:45 Micro: Microbiology 08/11/23 12:14 Gram Stain - Final Sputum - Endotracheal Tube Aspirate Sputum Culture - Final Staphylococcus aureus 08/11/23 05:22 Urine Culture - Final Urine,Clean Catch A&P Assessment and plan (1) Pneumonia due to COVID-19 virus: (2) Multifocal pneumonia: (3) Acute renal failure: (4) Septic shock: (5) Multiorgan failure: (6) Acute hypoxic respiratory failure: (7) V-tach: (8) Shock: (9) NSTEMI (non-ST elevated myocardial infarction): (10) CAPRI (acute kidney injury): (11) 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 2 diabetes mellitus: (12) Morbid obesity: (13) CAD (coronary artery disease): (14) ICD (implantable cardioverter-defibrillator) in place: (15) Sustained ventricular tachycardia: (16) CHF (congestive heart failure): (17) Ischemic cardiomyopathy: (18) Systolic CHF, acute: (19) COPD (chronic obstructive pulmonary disease): (20) Obstructive sleep apnea: (21) Tobacco abuse: (22) Metabolic acidosis: (23) Lactic acidosis: (24) Hyperkalemia: (25) Hyponatremia: (26) Goals of care, counseling/discussion: (27) Staphylococcus aureus pneumonia: Plan Ventricular tachycardia ? Status post cardioversion, Versed, fentanyl, ? Currently on amiodarone drip, ? Currently normal sinus rhythm -Cardiology consulted NSTEMI -According to family, coronary angiography done at the [facility], was within normal limits, stents no significant obstruction, no intervention required he also had a pacemaker check about a month ago which was within normal limits -Serial EKGs, starting troponins, telemetry monitoring, ? Aspirin, statin, Brilinta ?cardiac echo ? Completed 48 hours of heparin drip, switch to subcu heparin ?cardiology consulted Acute hypoxic respiratory failure ? Likely secondary to COVID-19 pneumonia, multifocal bacterial pneumonia, Staph aureus pneumonia ? Some component related to systolic CHF, fluid overload ? Plan -Monitor respiratory status closely, ? Continue vancomycin can ? Continue meropenem ? Continue remdesivir, -decadron ? Follow blood cultures, sputum cultures ? Subcu heparin drip as above, ? Currently intubated, sedated, minimize tidal volume, FiO2, ? Currently on fentanyl, Versed, Precedex for sedation, ? Daily spontaneous breathing trials, COVID-19 pneumonia, ? Continue remdesivir, ? Continue steroids Multifocal bacterial pneumonia, Staph aureus positive sputum cultures ? As above Septic shock, COVID-19 ? Currently on Levophed ? vasopressin ? Currently on epinephrine drip ? Scheduled albumin ? Follow cultures Acute renal failure ? Likely secondary to sepsis, septic shock, COVID-19 ? Consulted nephrology, ? dialysis catheter placement, -Issues with CRRT machine ? Plans on possible dialysis this evening, pending labs ? Monitor urine output, Metabolic acidosis ? Likely secondary to sepsis, septic shock, acute renal failure, next Lactic acidosis ? Likely sec to sepsis, Hyperkalemia, ? Status post D50, insulin, calcium gluconate Type 2 diabetes mellitus, blood sugars remain uncontrolled, in the high 400s start insulin drip COPD, no active wheezing, Full code ? Protonix for GI prophylaxis, ? Heparin drip for DVT prophylaxis, ? Prognosis guarded, status critical Plan for today possible dialysis, insulin drip, currently remains on 3 pressors intubated, sedated on mechanical ventilation continue IV antibiotics, currently status is critical, prognosis is guarded, on Decadron and remdesivir on broad- spectrum antibiotic therapy Attestations 2 Medical Necessity Statement*: Patient requires hospitalization for acute respiratory failure, septic shock, Staph aureus pneumonia, elevated blood sugars requiring insulin drip, on 3 pressors septic shock Coding Level of Care Code Critical Care >/= 30 minutes Critical care time (in minutes): 45 The high probability of a clinically significant, sudden or life threatening deterioration, as referenced in this documentation, required my full and direct attention, intervention and personal management. The critical care time shown is in addition to time spent performing any reported separately billable procedures and includes the following: [x] Data and vital sign review and interpretation [x ] Patient assessment, examination and intervention [x] Medication orders and management [x] Patient/Family updates as able [x] Care Coordination and Documentation. Diagnoses Pneumonia due to COVID-19 virus U07.1; J12.82 Multifocal pneumonia J18.9 Acute renal failure N17.9 Septic shock A41.9; R65.21 Multiorgan failure Acute hypoxic respiratory failure J96.01 V-tach I47.20 Shock R57.9 NSTEMI (non-ST elevated myocardial infarction) I21.4 CAPRI (acute kidney injury) N17.9 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 2 diabetes mellitus E11.22; N18.2 Morbid obesity E66.01 Coronary artery disease involving [place] coronary artery of [place] heart without angina pectoris I25.10 ICD (implantable cardioverter-defibrillator) in place Z95.810 Sustained ventricular tachycardia I47.20 Acute on chronic systolic congestive heart failure I50.9 Ischemic cardiomyopathy I25.5 Systolic CHF, acute I50.21 COPD (chronic obstructive pulmonary disease) J44.9 Obstructive sleep apnea G47.33 Tobacco abuse Z72.0 Metabolic acidosis E87.20 Lactic acidosis E87.20 Hyperkalemia E87.5 Hyponatremia E87.1 Goals of care, counseling/discussion Z71.89 Staphylococcus aureus pneumonia J15.211
[2023-08-13 17:42] LABS: Glucose Point of Care 404 mg/dL (70-110)
[2023-08-13] MEDS: atorvastatin 40 mg Tablet 80 MG PO (17:58)
[2023-08-13] MEDS: norepinephrine 4 MG/250 ML BAG 71.25 MG IV (18:59)
[2023-08-13] MEDS: insulin regular-human 250 UNIT in sodium chloride 0.9% 250 ML 11.62 UNIT IV (19:05)
[2023-08-13 19:13] LABS: Glucose Point of Care 388 mg/dL (70-110)
--- NOTE | 2023-08-13 19:36 | PC.NURSE ---
Shift summary: Pt remains intubated and sedated. He now works his mouth on oral swabs and ETT. He withdraws from pain when the bottom of his foot is scraped. FIO2 decreased to 45% and respiratory rate increased to 18. These are the vent changes for today. His lung sounds are clearer. Epi gtt is off. Levophed now infusing at19 mcg/min and Vasopressin decreased to 0.02 unit/min. Versed gtt rate remains the same. Fentanyl gtt decreased to 40mcg/hr. His anion gap increased and his blood sugars have been high today despite high sliding scale, so insulin gtt started at end of shift. He did have 1175 ml of urine output. No HD done today , will re-evaulate in a per Dr Tripathi. Parents, Bipin and Jazmine, updated with the changes before shift carlos.
[2023-08-13 20:01] LABS: Glucose Point of Care 427 mg/dL (70-110)
[2023-08-13 21:19] LABS: Glucose Point of Care 329 mg/dL (70-110)
[2023-08-13 21:44] LABS: Anion Gap 23.1 (5-19); Blood Urea Nitrogen 60 mg/dL (6-20); Calcium 6.7 mg/dL (8.5-10.5); Carbon Dioxide 24 mmol/L (22-29); Chloride 82 mmol/L (98-107); Creatinine Clr Calc Pharmacy 26.2399; Glomerular Filtration Rate 16.9 mL/min (90-130); Glucose 357 mg/dL (65-115); Osmolality Calculated 291 mOsm/kg (285-295); Potassium 4.1 mmol/L (3.5-5.1); Sodium 125 mmol/L (136-145)
[2023-08-13] MEDS: norepinephrine 4 MG/250 ML BAG 67.5 MG IV (22:14)
[2023-08-13] MEDS: dexmedeTOMIDine 0.9 % NaCL 400 MCG/100 ML PREMIX IV (22:22)
[2023-08-13 22:37] LABS: Glucose Point of Care 334 mg/dL (70-110)
[2023-08-13 23:32] LABS: Glucose Point of Care 305 mg/dL (70-110)
[2023-08-13] MEDS: fentaNYL 1,000 MCG/100 ML BAG 12.5 MCG IV (23:35)
[2023-08-14] VITALS (100 sets, daily range): BP systolic 63–127; BP diastolic 45–87; PULSE 74–116; RESP 16–23; TEMP 36.1–37.3; O2SAT 81–98
[2023-08-14 00:12] LABS: Hepatitis B Core AB, Total Non-Reactive (Nonreactive); Hepatitis B Surface AB 22.4 (11.5-1000); Hepatitis B Surface Antigen Non-Reactive (Nonreactive)
[2023-08-14 00:16] LABS: Glucose Point of Care 243 mg/dL (70-110)
[2023-08-14] MEDS: ipratropium-albuterol 3 mL Neb INHALATION ×7 (00:19→23:01)
[2023-08-14 00:52] LABS: Anion Gap 21.9 (5-19); Blood Urea Nitrogen 61 mg/dL (6-20); Calcium 6.7 mg/dL (8.5-10.5); Carbon Dioxide 25 mmol/L (22-29); Chloride 84 mmol/L (98-107); Creatinine Clr Calc Pharmacy 26.2399; Glomerular Filtration Rate 16.9 mL/min (90-130); Glucose 241 mg/dL (65-115); Osmolality Calculated 289 mOsm/kg (285-295); Potassium 3.9 mmol/L (3.5-5.1); Sodium 127 mmol/L (136-145)
[2023-08-14] MEDS: meropenem 1,000 MG in sodium chloride 0.9% (plus) 50 ML 100 MG IV ×3 (01:20→18:06)
[2023-08-14] MEDS: sodium bicarbonate 150 MEQ in dextrose 5% 1,000 ML 50 MEQ IV (01:20)
[2023-08-14 01:42] LABS: Glucose Point of Care 236 mg/dL (70-110)
[2023-08-14] MEDS: norepinephrine 4 MG/250 ML BAG 52.5 MG IV ×2 (01:52→06:30)
[2023-08-14 03:11] LABS: Glucose Point of Care 235 mg/dL (70-110)
[2023-08-14 03:32] LABS: Hepatitis C Virus Antibody Non-Reactive (Nonreactive)
[2023-08-14 04:02] LABS: Glucose Point of Care 177 mg/dL (70-110)
[2023-08-14 04:43] LABS: ABG PCO2 52.3 mmHg (35-45); ABG PH Result 7.33 (7.35-7.45); Arterial Blood Gas Hematocrit 36.2 % (42-52); Base Excess ABG 1.1 mmol/L (-2.0-2.0); Blood Gas Allen Test Pos; Blood Gas Sample Site Radial, left; Blood Gas Sample Type Arterial; HCO3 ABG 27.7 mmol/L (22-26); Oxygen Device VENT; PO2 ABG 65.9 mmHg (80.0-100.0); PO2 FiO2 Ratio Arterial Blood 0
[2023-08-14] MEDS: vancomycin 1,250 MG/250 ML PIGGYBACK 250 MG IV (05:06)
[2023-08-14] MEDS: heparin 5,000 unit/mL INJ 1 mL 5000 UNIT SUBCUT ×3 (05:06→21:19)
[2023-08-14] MEDS: aspirin 81 mg EC Tablet PO (05:07)
[2023-08-14 05:28] LABS: Glucose Point of Care 189 mg/dL (70-110)
[2023-08-14 05:31] LABS: Basophils % 0.2 %; Eosinophils % 0.1 %; Hematocrit 34.2 % (37-53); Lymphocytes # 0.4 10^3/uL (0.8-4.8); Lymphocytes % 2.9 %; Mean Corpuscular HGB Conc 33.3 g/dL (30-55); Mean Corpuscular Hemoglobin 29.6 pg (27-33); Mean Corpuscular Volume 88.8 fl (82-101); Mean Platelet Volume 10.9 fL (7.4-10.4); Monocytes # 0.6 10^3/uL (0.2-0.9); Monocytes % 4.2 %; Neutrophils # 13.13 10^3/uL (1.8-7.7); Neutrophils % 91.3 %; Nucleated Red Blood Cells # 0.1 /100WBC; Nucleated Red Blood Cells % 0.9 %; Platelet Count 268 10^3/cmm (157-399); Red Blood Count 3.85 10^6/uL (3.85-5.65); Red Cell Distribution Width 15.1 % (12.1-15.1); White Blood Count 14.37 10^3/uL (3.29-11.43)
[2023-08-14 05:45] LABS: INR 1.54 (0.8-1.2)
[2023-08-14 05:53] LABS: Albumin Level 3.6 g/dL (3.5-5.2); Alkaline Phosphatase 90 U/L (40-130); Blood Urea Nitrogen 63 mg/dL (6-20); Calcium 6.9 mg/dL (8.5-10.5); Carbon Dioxide 27 mmol/L (22-29); Chloride 83 mmol/L (98-107); Globulin 2.3 g/dL (1.3-4.6); Glomerular Filtration Rate 16.9 mL/min (90-130); Glucose 152 mg/dL (65-115); Magnesium 2.2 mg/dL (1.7-2.3); Osmolality Calculated 283 mOsm/kg (285-295); Phosphorus 5.3 mg/dL (2.5-4.5); Sodium 126 mmol/L (136-145); Total Bilirubin 2.5 mg/dL (0.15-1.2); Total Protein 5.9 g/dL (6.6-8.7)
[2023-08-14 05:55] LABS: Lactate (Lactic Acid level) 1.9 mmol/L (0.5-2.2)
[2023-08-14 06:00] LABS: C Reactive Protein 197.9 mg/L (0.0-4.9)
[2023-08-14 06:02] LABS: NT Pro B Type Natriuretic Pept 13772 pg/mL (0-125); Procalcitonin 21.02 ng/mL (0-0.5)
[2023-08-14] MEDS: fentaNYL 1,000 MCG/100 ML BAG 10 MCG IV (06:14)
[2023-08-14 06:17] LABS: Alanine Aminotransferase 1902 U/L (0-41); Aspartate Amino Transferase 1883 U/L (0-40)
[2023-08-14 06:20] LABS: Glucose Point of Care 209 mg/dL (70-110)
[2023-08-14 06:29] LABS: Creatine Phosphokinase 1696 U/L (39-308)
--- NOTE | 2023-08-14 07:00 | XR_ITS ---
WS: [id number] Portable AP upright chest, 08/14/2023 Clinical Data: sob Comparison: Portable chest, 08/13/2023 Findings: The patchy diffuse bilateral pulmonary opacities have not changed. The heart remains enlarg ed. The endotracheal tube, left internal jugular venous catheter and cardiac pacemaker remain in the same position. Monitor leads are on the chest wall. Impression: No change from yesterday.
[2023-08-14 08:19] LABS: Glucose Point of Care 137 mg/dL (70-110)
[2023-08-14 08:57] LABS: Blood Urea Nitrogen 64 mg/dL (6-20); Calcium 6.5 mg/dL (8.5-10.5); Carbon Dioxide 25 mmol/L (22-29); Chloride 82 mmol/L (98-107); Glomerular Filtration Rate 16.4 mL/min (90-130); Glucose 142 mg/dL (65-115); Osmolality Calculated 281 mOsm/kg (285-295); Sodium 125 mmol/L (136-145)
[2023-08-14 09:04] LABS: Glucose Point of Care 126 mg/dL (70-110)
[2023-08-14] MEDS: ticagrelor 90 mg Tablet PO ×2 (09:08→18:07)
[2023-08-14] MEDS: remdesivir 100 MG in sodium chloride 0.9% (100 ml) 80 ML IV (09:08)
[2023-08-14] MEDS: amiodarone 200 mg Tablet 400 MG PO ×2 (09:08→18:07)
--- NOTE | 2023-08-14 09:12 | PC.SOCIAL ---
IMM Update Updated pt's mother on IMM. No questions voiced. Provided pt a copy. Initialed, dated, & timed a copy & placed in chart.
[2023-08-14 09:46] LABS: Glucose Point of Care 130 mg/dL (70-110)
[2023-08-14] MEDS: albumin 25 G/100 ML BAG 60 G IV ×2 (09:53→18:06)
[2023-08-14 10:46] LABS: Glucose Point of Care 131 mg/dL (70-110)
[2023-08-14 10:46] LABS: Glucose Point of Care 343 mg/dL (70-110)
[2023-08-14 11:55] LABS: Glucose Point of Care 184 mg/dL (70-110)
--- NOTE | 2023-08-14 12:02 | P.PN_ITS ---
Subjective 2 Subjective: events noted Medications: Reviewed: Yes Vitals/I&O/Wt Last Vital Signs Temp 97.8 F 08/14/23 04:20 Pulse 83 08/14/23 11:11 Resp 18 08/14/23 11:12 BP 124/60 08/14/23 10:15 Pulse Ox 96 08/14/23 11:12 O2 Del Method Mechanical Ventilation 08/14/23 11:03 FiO2 45 08/14/23 11:12 08/13/23 08/14/23 08/14/23 22:59 06:59 14:59 Intake Total 869.598 / 3850.226 1909.058 / 5759.284 Output Total 1175 / 1175 800 / 1975 Balance -305.402 / 2675.226 1109.058 / 3784.284 Weight last 48 hrs Weight 128.5 kg Weight 123.5 kg Weight 123.5 kg Physical Exam 2 Urinary Catheter Management: Burciaga: Cath Placed During This Visit: yes Reason for Continuing Indwelling Catheter: Accurate Measurement of Urinary Output in Critically Ill Patients Urinary Catheter Date of Insertion: 08/11/23 Urinary Catheter Time of Insertion: 12:38 Data 08/14/23 04:50 08/14/23 08:26 Micro: Microbiology 08/11/23 12:14 Gram Stain - Final Sputum - Endotracheal Tube Aspirate Sputum Culture - Final Staphylococcus aureus 08/11/23 05:22 Urine Culture - Final Urine,Clean Catch A&P Assessment and plan (1) Acute renal failure: Plan 1. Acute kidney injury, in the setting of shock, cardiac arrest. Baseline creatinine was normal in November 2022. -She is currently on 1 pressors, intubated and sedated -s/p CRRT for 1.5 hours stopped CRRT due to machine malfunction - UOP picked up , monitor closely 2. Shock, cardiac arrest 3. COVID-pneumonia 4. History of coronary artery disease and stents 5. History of COPD Patient evaluated using audiovisual cart. Time spent 20 minutes. Attestations 2 Medical Necessity Statement*: per mark Coding Level of Care Code Acute Code for Chg Fwd Diagnoses Acute renal failure N17.9
[2023-08-14] MEDS: norepinephrine 4 MG/250 ML BAG 37.5 MG IV ×2 (12:45→18:59)
[2023-08-14 12:51] LABS: Glucose Point of Care 213 mg/dL (70-110)
[2023-08-14 13:48] LABS: Glucose Point of Care 238 mg/dL (70-110)
[2023-08-14] MEDS: amiodarone 50 mg/mL SDV 3 mL 150 MG IVP (14:19)
[2023-08-14 14:33] LABS: Anion Gap 24.7 (5-19); Blood Urea Nitrogen 66 mg/dL (6-20); Calcium 6.7 mg/dL (8.5-10.5); Carbon Dioxide 25 mmol/L (22-29); Chloride 81 mmol/L (98-107); Glomerular Filtration Rate 15.9 mL/min (90-130); Glucose 299 mg/dL (65-115); Osmolality Calculated 292 mOsm/kg (285-295); Potassium 4.7 mmol/L (3.5-5.1); Sodium 126 mmol/L (136-145)
[2023-08-14] MEDS: dexamethasone 10 mg/mL INJ 6 MG IVP (14:40)
[2023-08-14 15:07] LABS: Glucose Point of Care 266 mg/dL (70-110)
--- NOTE | 2023-08-14 16:11 | P.PN_ITS ---
Subjective 2 Subjective: Patient was seen this morning, -Yesterday evening, patient's blood suga rs were over 400, with increased anion gap, was placed back on insulin drip, this morning he is on 8 units/h, anion gap 21.9 ? Overnight he had episodes of V. tach placed back on amiodarone, ? His pressor requirements have improved still on about 19 mcg of Levophed, off all the pressors, ? Urine output is improving, he is ? He is on 45% FiO2, ? Remained afebrile, Remains intubated, sedated on mechanical ventilation Vitals/I&O/Wt Last Vital Signs Temp 97.8 F 08/14/23 04:20 Pulse 81 08/14/23 12:15 Resp 18 08/14/23 13:31 BP 102/63 08/14/23 12:15 Pulse Ox 97 08/14/23 13:31 O2 Del Method Mechanical Ventilation 08/14/23 11:03 FiO2 45 08/14/23 13:31 08/14/23 08/14/23 08/14/23 06:59 14:59 22:59 Intake Total 1909.058 / 5759.284 316.316 / 316.316 3.367 / 319.683 Output Total 800 / 1975 Balance 1109.058 / 3784.284 316.316 / 316.316 3.367 / 319.683 Weight last 48 hrs Weight 128.5 kg Weight 123.5 kg Weight 123.5 kg Physical Exam 2 Const: COMMON NORMALS: no acute distress ORIENTATION/CONSCIOUSNESS: not awake, not oriented to person, not oriented to place and not oriented to time Eye: OTHER: pupils pinpoint minimally reactive to light Resp: COMMON NORMALS: normal respiratory effort, No retractions and No use of accessory muscles AUSCULTATION: crackles and wheezes Cardio: COMMON NORMALS: regular rate, regular rhythm, S1 normal heart sound present and S2 normal heart sound present RATE: regular rate RHYTHM: r egular rhythm HEART SOUNDS: S1 normal heart sound present and S2 normal heart sound present GI: COMMON NORMALS: Normal to inspection, nondistended, normoactive bowel sounds present and non-tender Extremity: COMMON NORMALS: no pedal edema Neuro: SENSORIUM/ORIENTATION: No oriented to person, No oriented to place and No oriented to time Psych: COMMON NORMALS: mental status grossly normal Urinary Catheter Management: Burciaga: Cath Placed During This Visit: yes Reason for Continuing Indwelling Catheter: Accurate Measurement of Urinary Output in Critically Ill Patients Urinary Catheter Date of Insertion: 08/11/23 Urinary Catheter Time of Insertion: 12:38 Sepsis: Is patient septic: Yes Focused sepsis exam performed: Yes F ocused sepsis exam: minimal mottling, dp/pt palpable, capillary refill>1 second Date exam was performed: 08/14/23 Time exam was performed: 08:00 Data 08/14/23 04:50 08/14/23 13:48 Micro: Microbiology 08/12/23 04:50 Blood Culture - Preliminary Blood 08/12/23 04:50 Blood Culture - Preliminary Blood 08/11/23 12:14 Gram Stain - Final Sputum - Endotracheal Tube Aspirate Sputum Culture - Final Staphylococcus aureus A&P Assessment and plan (1) Pneumonia due to COVID-19 virus: (2) Multifocal pneumonia: (3) Acute renal failure: (4) Septic shock: (5) Multiorgan failure: (6) Acute hypoxic respiratory failure: (7) V-tach: (8) Shock: (9) NSTEMI (non-ST elevated myocardial infarction): (10) CAPRI (acute kidney injury): (11) 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 2 diabetes mellitus: (12) Morbid obesity: (13) CAD (coronary artery disease): (14) ICD (implantable cardioverter-defibrillator) in place: (15) Sustained ventricular tachycardia: (16) CHF (congestive heart failure): (17) Ischemic cardiomyopathy: (18) Systolic CHF, acute: (19) COPD (chronic obstructive pulmonary disease): (20) Obstructive sleep apnea: (21) Tobacco abuse: (22) Metabolic acidosis: (23) Lactic acidosis: (24) Hyperkalemia: (25) Hyponatremia: (26) Goals of care, counseling/discussion: (27) Staphylococcus aureus pneumonia: (28) Rhabdomyolysis: (29) Shock liver: (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 Status post cardioversion, Versed, fentanyl, ? Continues to have episodes of V. tach ? Currently back on amiodarone drip, also on p.o. amiodarone 400 twice daily -Cardiology consulted Hyperglycemia with concern for HHS, increased anion gap 24.7, ? Continue insulin drip, ? Monitor blood sugars q. hourly, ? Monitor anion gap, ? Monitor potassium Shock liver ? Likely sec to septic shock ?continue to monitor closely NSTEMI -According to family, coronary angiography done at the [facility], was within normal limits, stents no significant obstruction, no intervention required he also had a pacemaker check about a month ago which was within normal limits -Serial EKGs, starting troponins, telemetry monitoring, ? Aspirin, statin, Brilinta ?cardiac echo ? Completed 48 hours of heparin drip, switch to subcu heparin ?cardiology consulted Acute hypoxic respiratory failure ? Likely secondary to COVID-19 pneumonia, multifocal bacterial pneumonia, Staph aureus pneumonia ? Some component related to systolic CHF, fluid overload ? Plan -Monitor respiratory status closely, ? Continue vancomycin can ? Continue meropenem ? Continue remdesivir, -decadron ? Follow blood cultures, sputum cultures ? Subcu heparin drip as above, ? Currently intubated, sedated, minimize tidal volume, FiO2, ? Currently on fentanyl, Versed, Precedex for sedation, ? Daily spontaneous breathing trials, COVID-19 pneumonia, ? Continue remdesivir, ? Continue steroids Multifocal bacterial pneumonia, Staph aureus positive sputum cultures ? As above Septic shock, COVID-19 ? Currently on Levophed ? Off vasopressin ? off epinephrine drip ? Scheduled albumin ? Follow cultures Acute renal failure ? Likely secondary to sepsis, septic shock, COVID-19 ? Consulted nephrology, ? dialysis catheter placement, -Issues with CRRT machine ? no possible dialysis this evening, pending labs ? Monitor urine output, Metabolic acidosis ? Likely secondary to sepsis, septic shock, acute renal failure, next Lactic acidosis ? Likely sec to sepsis, Hyperkalemia, ? Status post D50, insulin, calcium gluconate Type 2 diabetes mellitus, blood sugars remain uncontrolled, in the high 400s start insulin drip COPD, no active wheezing, Full code ? Protonix for GI prophylaxis, ? Heparin drip for DVT prophylaxis, ? Prognosis guarded, status critical Patient was seen this morning, -Yesterday evening, patient's blood sugars were over 400, with increased anion gap, was placed back on insulin drip, this morning he is on 8 units/h, anion gap 21.9 ? Overnight he had episodes of V. tach placed back on amiodarone, ? His pressor requirements have improved still on about 19 mcg of Levophed, off all the pressors, ? Urine output is improving, he is ? He is on 45% FiO2, ? Remained afebrile, Remains intubated, sedated on mechanical ventilation Attestations 2 Medical Necessity Statement*: patient v tach, acute renal failure, acute hypoxic resp failure, nstemi, septic shock, shock liver, hyperglycemia, on pressore, on insulin drip, intubated, o abx, now with sustained vtach Coding Level of Care Code Critical Care >/= 30 minutes Critical care time (in minutes): 45 The high probability of a clinically significant, sudden or life threatening deterioration, as referenced in this documentation, required my full and direct attention, intervention and personal management. The critical care time shown is in addition to time spent performing any reported separately billable procedures and includes the following: [x] Data and vital sign review and interpretation [x ] Patient assessment, examination and intervention [x] Medication orders and management [x] Patient/Family updates as able [x] Care Coordination and Documentation. Diagnoses Pneumonia due to COVID-19 virus U07.1; J12.82 Multifocal pneumonia J18.9 Acute renal failure N17.9 Septic shock A41.9; R65.21 Multiorgan failure Acute hypoxic respiratory failure J96.01 V-tach I47.20 Shock R57.9 NSTEMI (non-ST elevated myocardial infarction) I21.4 CAPRI (acute kidney injury) N17.9 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 2 diabetes mellitus E11.22; N18.2 Morbid obesity E66.01 Coronary artery disease involving [place] coronary artery of [place] heart without angina pectoris I25.10 ICD (implantable cardioverter-defibrillator) in place Z95.810 Sustained ventricular tachycardia I47.20 Acute on chronic systolic congestive heart failure I50.9 Ischemic cardiomyopathy I25.5 Systolic CHF, acute I50.21 COPD (chronic obstructive pulmonary disease) J44.9 Obstructive sleep apnea G47.33 Tobacco abuse Z72.0 Metabolic acidosis E87.20 Lactic acidosis E87.20 Hyperkalemia E87.5 Hyponatremia E87.1 Goals of care, counseling/discussion Z71.89 Staphylococcus aureus pneumonia J15.211 Rhabdomyolysis M62.82 Shock liver K72.00 HHS (hypothenar hammer syndrome) I73.89
[2023-08-14 16:17] LABS: Glucose Point of Care 368 mg/dL (70-110)
[2023-08-14] MEDS: pantoprazole 40 mg SDV IVP (18:06)
[2023-08-14] MEDS: atorvastatin 40 mg Tablet 80 MG PO (18:07)
[2023-08-14] MEDS: fentaNYL 1,000 MCG/100 ML BAG 7.5 MCG IV (18:22)
[2023-08-14] MEDS: midazolam hcl 100 MG/100 ML BAG IV (18:23)
[2023-08-14 20:35] LABS: Glucose Point of Care 410 mg/dL (70-110)
[2023-08-14 20:52] LABS: Anion Gap 25.3 (5-19); Blood Urea Nitrogen 70 mg/dL (6-20); Calcium 6.6 mg/dL (8.5-10.5); Carbon Dioxide 24 mmol/L (22-29); Chloride 78 mmol/L (98-107); Glomerular Filtration Rate 15.4 mL/min (90-130); Glucose 365 mg/dL (65-115); Osmolality Calculated 291 mOsm/kg (285-295); Potassium 4.3 mmol/L (3.5-5.1); Sodium 123 mmol/L (136-145)
[2023-08-14] MEDS: insulin regular-human 250 UNIT in sodium chloride 0.9% 250 ML 7.07 UNIT IV (21:20)
[2023-08-14 21:40] LABS: Glucose Point of Care 347 mg/dL (70-110)
--- NOTE | 2023-08-14 22:13 | PC.NURSE ---
Precedex drip was off at the beginning of this nurse's shift. MAR was corrected to reflect this.
[2023-08-14 22:39] LABS: Glucose Point of Care 335 mg/dL (70-110)
[2023-08-14] MEDS: propofol 1,000 MG/100 ML INJ 3.44 MG IV (23:34)
[2023-08-15] VITALS (60 sets, daily range): BP systolic 70–112; BP diastolic 46–71; PULSE 70–82; RESP 16–23; TEMP 36.8; O2SAT 92–100; BMI 47.1
[2023-08-15 00:17] LABS: Glucose Point of Care 330 mg/dL (70-110)
[2023-08-15] MEDS: sodium bicarbonate 150 MEQ in dextrose 5% 1,000 ML 50 MEQ IV (00:41)
[2023-08-15] MEDS: meropenem 1,000 MG in sodium chloride 0.9% (plus) 50 ML 100 MG IV ×3 (00:41→17:42)
[2023-08-15] MEDS: albumin 25 G/100 ML BAG 60 G IV ×3 (00:42→15:42)
[2023-08-15] MEDS: norepinephrine 4 MG/250 ML BAG 37.5 MG IV ×2 (00:58→15:43)
[2023-08-15 01:30] LABS: Glucose Point of Care 283 mg/dL (70-110)
[2023-08-15 02:18] LABS: NT Pro B Type Natriuretic Pept 10326 pg/mL (0-125); Procalcitonin 15.69 ng/mL (0-0.5)
[2023-08-15 02:20] LABS: Glucose Point of Care 260 mg/dL (70-110)
[2023-08-15 02:29] LABS: Anion Gap 24.1 (5-19); Blood Urea Nitrogen 72 mg/dL (6-20); Calcium 6.6 mg/dL (8.5-10.5); Carbon Dioxide 25 mmol/L (22-29); Chloride 79 mmol/L (98-107); Glomerular Filtration Rate 13.8 mL/min (90-130); Glucose 276 mg/dL (65-115); Osmolality Calculated 289 mOsm/kg (285-295); Potassium 4.1 mmol/L (3.5-5.1); Sodium 124 mmol/L (136-145)
[2023-08-15 02:31] LABS: Creatine Phosphokinase 1237 U/L (39-308)
[2023-08-15] MEDS: chlorhexidine gluconate 4% Btl 118 mL 1 APPLIC TOPICAL (02:43)
[2023-08-15] MEDS: fentaNYL 1,000 MCG/100 ML BAG 17.5 MCG IV (03:15)
[2023-08-15] MEDS: ipratropium-albuterol 3 mL Neb INHALATION ×6 (03:48→23:40)
[2023-08-15 04:14] LABS: Glucose Point of Care 230 mg/dL (70-110)
[2023-08-15 05:15] LABS: ABG PH Result 7.33 (7.35-7.45); Blood Gas Operator Identificat JB; Blood Gas Sample Site Brachial, right; Blood Gas Sample Type Arterial; Blood Gas Tidal Volume 0.45; Oxygen Device VENT; PO2 FiO2 Ratio Arterial Blood 0
[2023-08-15 05:17] LABS: ABG PCO2 48.6 mmHg (35-45); Arterial Blood Gas Hematocrit 37.6 % (42-52); Base Excess ABG -0.9 mmol/L (-2.0-2.0); Blood Gas Allen Test Pos; HCO3 ABG 25.5 mmol/L (22-26); PO2 ABG 59.8 mmHg (80.0-100.0)
[2023-08-15] MEDS: heparin 5,000 unit/mL INJ 1 mL 5000 UNIT SUBCUT ×3 (05:30→22:02)
[2023-08-15] MEDS: aspirin 81 mg EC Tablet PO (05:30)
[2023-08-15] MEDS: norepinephrine 4 MG/250 ML BAG 60 MG IV (05:34)
[2023-08-15 06:09] LABS: Basophils % 0.2 %; Eosinophils % 0.1 %; Lymphocytes # 0.5 10^3/uL (0.8-4.8); Lymphocytes % 3.2 %; Mean Corpuscular HGB Conc 33.7 g/dL (30-55); Mean Corpuscular Hemoglobin 29.4 pg (27-33); Mean Corpuscular Volume 87.3 fl (82-101); Mean Platelet Volume 11.3 fL (7.4-10.4); Monocytes # 1.1 10^3/uL (0.2-0.9); Monocytes % 6.6 %; Neutrophils # 14.24 10^3/uL (1.8-7.7); Neutrophils % 88.4 %; Nucleated Red Blood Cells # 0.1 /100WBC; Nucleated Red Blood Cells % 0.8 %; Platelet Count 326 10^3/cmm (157-399); Red Blood Count 4.01 10^6/uL (3.85-5.65); Red Cell Distribution Width 15.5 % (12.1-15.1)
[2023-08-15 06:31] LABS: INR 1.37 (0.8-1.2)
[2023-08-15 06:34] LABS: Albumin Level 3.8 g/dL (3.5-5.2); Alkaline Phosphatase 98 U/L (40-130); Anion Gap 24.1 (5-19); Aspartate Amino Transferase 695 U/L (0-40); Blood Urea Nitrogen 73 mg/dL (6-20); C Reactive Protein 113.7 mg/L (0.0-4.9); Calcium 6.7 mg/dL (8.5-10.5); Carbon Dioxide 25 mmol/L (22-29); Chloride 80 mmol/L (98-107); Globulin 2.2 g/dL (1.3-4.6); Glomerular Filtration Rate 13.8 mL/min (90-130); Glucose 235 mg/dL (65-115); Magnesium 2.3 mg/dL (1.7-2.3); Osmolality Calculated 289 mOsm/kg (285-295); Phosphorus 6.9 mg/dL (2.5-4.5); Potassium 4.1 mmol/L (3.5-5.1); Sodium 125 mmol/L (136-145); Total Bilirubin 1.6 mg/dL (0.15-1.2)
[2023-08-15 06:42] LABS: NT Pro B Type Natriuretic Pept 10278 pg/mL (0-125)
[2023-08-15 06:44] LABS: Glucose Point of Care 210 mg/dL (70-110)
[2023-08-15 06:44] LABS: Glucose Point of Care 239 mg/dL (70-110)
[2023-08-15 06:52] LABS: Alanine Aminotransferase 1110 U/L (0-41)
--- NOTE | 2023-08-15 07:00 | XR_ITS ---
WS: [id number] Portable AP supine chest, 08/15/2023 Clinical Data: sob Comparison: Portable chest, 08/14/2023 Findings: The diffuse bilateral patchy pulmonary opacities remain the same. The endotracheal tube, le ft internal jugular venous catheter and permanent cardiac pacemaker remain in position. The heart is still enlarged. Impression: No change from yesterday.
[2023-08-15 07:02] LABS: Creatine Phosphokinase 1157 U/L (39-308)
[2023-08-15 08:24] LABS: Glucose Point of Care 192 mg/dL (70-110)
[2023-08-15 09:12] LABS: Glucose Point of Care 155 mg/dL (70-110)
--- NOTE | 2023-08-15 09:15 | P.PN_ITS ---
Subjective 2 Subjective: on ventilator, pressors have been reduced Vitals/I&O/Wt Last Vital Signs Temp 98.2 F 08/15/23 04:00 Pulse 75 08/15/23 08:00 Resp 18 08/15/23 08:00 BP 96/55 08/15/23 04:00 Pulse Ox 98 08/15/23 08:00 O2 Del Method Mechanical Ventilation 08/15/23 08:00 FiO2 45 08/15/23 08:00 08/14/23 08/15/23 08/15/23 22:59 06:59 14:59 Intake Total 860.828 / 5552.324 9516.329 / 3767.473 Output Total 650 / 650 50 / 700 Balance 210.828 / 256.050 4638.329 / 3067.473 Weight last 48 hrs Weight 128.48 kg Weight 128.5 kg Physical Exam 2 Urinary Catheter Management: Burciaga: Cath Placed During This Visit: yes Reason for Continuing Indwelling Catheter: Accurate Measurement of Urinary Output in Critically Ill Patients Urinary Catheter Date of Insertion: 08/11/23 Urinary Catheter Time of Insertion: 12:38 Data 08/15/23 05:25 08/15/23 14:00 Other Labs: proBNP 10,278 albumin 3.8, Ca 6.7, phos 6.9, Mg 2.3 CK 1157, better LFTs better Micro: Microbiology 08/12/23 04:50 Blood Culture - Preliminary Blood 08/12/23 04:50 Blood Culture - Preliminary Blood CXR: Radiologist's impression: The diffuse bilateral patchy pulmonary opacities remain the same. The endotracheal tube, left internal jugular venous catheter and permanent cardiac pacemaker remain in position. The heart is still enlarged. US: Radiologist's impression: Right kidney: Normal. No mass. No hydronephrosis. Intraperitoneal space: Abdominal ascites. ABG Interpretation 1: 08/11/23 08/12/23 08/12/23 16:55 04:10 13:00 ABG pH 7.20 L 7.15 L* 7.16 L* ABG pCO2 66.9 H* 57.6 H 55.5 H ABG pO2 325.0 H 78.6 L 99.1 ABG HCO3 26.3 H 20.0 L 19.9 L ABG O2 Saturation 92.5 96.3 ABG Base Excess -3.5 L -9.9 L -9.4 L 08/13/23 08/14/23 08/15/23 04:15 04:35 04:40 ABG pH 7.21 L 7.33 L 7.33 L ABG pCO2 57.9 H 52.3 H 48.6 H ABG pO2 83.0 65.9 L 59.8 L ABG HCO3 23.1 27.7 H 25.5 ABG O2 Saturation ABG Base Excess -5.5 L 1.1 -0.9 Other data: seen via telemedicine with assistance of RN at bedside A&P Assessment and plan (1) Acute renal failure: Qualifiers: Acute renal failure type: unspecified Qualified Code(s): N17.9 - Acute kidney failure, unspecified Plan 1. Acute kidney injury, in the setting of shock, cardiac arrest. Nonoliguric. Baseline creatinine was normal in November 2022. 2. COVID-pneumonia, VDRF, oxygenating well on 45% FIO2 3. Hyponatremia, hypervolemic, received one dose lasix, consider lasix gtt 4. Metabolic acidosis, improved, reduce bicarbonate gtt 5. History of COPD, coronary artery disease Has dialysis catheter. If hemodynamically stable tomorrow, will try intermittent HD. Attestations 2 Medical Necessity Statement*: see above Time Spent in Patient Care: 16 - 35 minutes Coding Level of Care Code Acute Code for Chg Fwd Diagnoses Acute renal failure, unspecified acute renal failure type N17.9 Acute renal failure type: unspecified
[2023-08-15] MEDS: amiodarone 200 mg Tablet 400 MG PO ×2 (09:45→17:41)
[2023-08-15] MEDS: ticagrelor 90 mg Tablet PO ×2 (09:46→17:40)
[2023-08-15] MEDS: remdesivir 100 MG in sodium chloride 0.9% (100 ml) 80 ML IV (09:46)
[2023-08-15] MEDS: fentaNYL 1,000 MCG/100 ML BAG 10 MCG IV (09:48)
[2023-08-15] MEDS: norepinephrine 4 MG/250 ML BAG 52.5 MG IV (09:52)
[2023-08-15] MEDS: propofol 1,000 MG/100 ML INJ 6.89 MG IV ×2 (09:52→15:43)
[2023-08-15 10:09] LABS: Glucose Point of Care 141 mg/dL (70-110)
[2023-08-15] MEDS: dexmedeTOMIDine 0.9 % NaCL 400 MCG/100 ML PREMIX 8.61 MCG IV (10:43)
[2023-08-15 11:08] LABS: Glucose Point of Care 140 mg/dL (70-110)
[2023-08-15 12:09] LABS: Glucose Point of Care 147 mg/dL (70-110)
[2023-08-15 13:13] LABS: Glucose Point of Care 170 mg/dL (70-110)
[2023-08-15 14:20] LABS: Glucose Point of Care 171 mg/dL (70-110)
[2023-08-15 14:28] LABS: Anion Gap 25.2 (5-19); Blood Urea Nitrogen 80 mg/dL (6-20); Calcium 6.6 mg/dL (8.5-10.5); Carbon Dioxide 24 mmol/L (22-29); Chloride 77 mmol/L (98-107); Glomerular Filtration Rate 13.5 mL/min (90-130); Glucose 194 mg/dL (65-115); Osmolality Calculated 283 mOsm/kg (285-295); Potassium 4.2 mmol/L (3.5-5.1); Sodium 122 mmol/L (136-145)
[2023-08-15] MEDS: dexamethasone 10 mg/mL INJ 6 MG IVP (14:35)
[2023-08-15 15:40] LABS: Glucose Point of Care 170 mg/dL (70-110)
[2023-08-15] MEDS: pantoprazole 40 mg SDV IVP (15:43)
[2023-08-15] MEDS: dexmedeTOMIDine 0.9 % NaCL 400 MCG/100 ML PREMIX 14.35 MCG IV ×2 (16:01→21:45)
[2023-08-15 16:38] LABS: Glucose Point of Care 167 mg/dL (70-110)
[2023-08-15] MEDS: FUROsemide 10 mg/mL SDV 10mL 60 MG IVP (17:34)
[2023-08-15] MEDS: atorvastatin 40 mg Tablet 80 MG PO (17:40)
[2023-08-15] MEDS: vancomycin 1,250 MG/250 ML PIGGYBACK 250 MG IV (17:41)
[2023-08-15 17:49] LABS: Glucose Point of Care 196 mg/dL (70-110)
[2023-08-15 18:47] LABS: Glucose Point of Care 219 mg/dL (70-110)
--- NOTE | 2023-08-15 18:54 | P.PN_ITS ---
Subjective 2 Subjective: - Patient was seen this morning ? Plan on sedation vacation this morning, overnight he did have episodes of agitation, overbreathing the vent was placed on propofol, ? This morning, he is on 10 of propofol, off Versed, weaning off fentanyl, extended spoke to nursing staff, will avoid Versed, ? Precedex if needed, 25 mcg of fentanyl for agitation ? Remains on Levophed roughly 19 mcg, ? He has good urine output, ? Normotensive, ? Despite being on pressors? ? Afebrile overnight, - clear to auscultation bilaterally, is on 45% FiO2 -I had a detailed discussion with kandi tuttle's mother at bedside, ?I discussed the patient's status is stable, prognosis is guarded, ? He remains on pressors, he is off 2 pressors but he is on 19 mcg of fentanyl, so he is still in septic shock, but improving, ? In terms of his multiorgan failure it is improving his shock liver is improving his acute renal failure is improving urine output improving his O2 requirements decreased to 45% ? The plan is for sedation vacation today, and continue sedation vacation throughout the next 24 hours,?the ultimate question is has the sustained significant neurologic injury being on multiple pressors, and his septic shock, will wean him off sedation and monitor his mentation, he has been on Versed which can take a prolonged period of time to get out of his system, ? He is still in shock he is still on pressors so once he is off pressors, he would be in better shape for possible extubation, will continue to monitor his oxygen requirements, ? Possible dialysis in the next 24 to 48 hours, to help eliminate toxins, to help with uremia, I will try to diurese him today ? I did discuss with patient's mother that might be a possibility that he might require prolonged intubation, might require trach and PEG, however there is also still a concern of significant neurologic injury if he does not wake up from sedation right now it is too soon to tell as he has been on Versed, he is still in renal failure and still in septic shock we will have to monitor him closely ? Will monitor over the next 24 hours continue sedation vacation, will avoid TPN for now as he is still on high-dose pressors, ? Patient's mother voiced understanding, all questions were Nicole agreed to proceed Vitals/I&O/Wt Last Vital Signs Temp 98.2 F 08/15/23 04:00 Pulse 80 08/15/23 18:00 Resp 22 H 08/15/23 18:08 BP 92/62 08/15/23 18:00 Pulse Ox 95 08/15/23 18:08 O2 Del Method Mechanical Ventilation 08/15/23 15:53 FiO2 35 08/15/23 18:08 08/15/23 08/15/23 08/15/23 06:59 14:59 22:59 Intake Total 2490.329 / 4117.473 653.875 / 653.875 95.085 / 748.960 Output Total 50 / 700 Balance 2440.329 / 3417.473 653.875 / 653.875 95.085 / 748.960 Weight last 48 hrs Weight 128.48 kg Weight 128.5 kg Physical Exam 2 Const: COMMON NORMALS: no acute distress Resp: COMMON NORMALS: normal respiratory effort, No retractions and No use of accessory muscles AUSCULTATION: rales and wheezes Cardio: COMMON NORMALS: regular rate, regular rhythm, S1 normal heart sound present and S2 normal heart sound present RATE: regular rate RHYTHM: r egular rhythm HEART SOUNDS: S1 normal heart sound present and S2 normal heart sound present GI: COMMON NORMALS: Normal to inspection, nondistended, normoactive bowel sounds present and non-tender Extremity: COMMON NORMALS: no pedal edema Urinary Catheter Management: Burciaga: Cath Placed During This Visit: yes Reason for Continuing Indwelling Catheter: Accurate Measurement of Urinary Output in Critically Ill Patients Urinary Catheter Date of Insertion: 08/11/23 Urinary Catheter Time of Insertion: 12:38 Data 08/15/23 05:25 08/15/23 14:00 Micro: Microbiology 08/12/23 04:50 Blood Culture - Final Blood 08/12/23 04:50 Blood Culture - Preliminary Blood A&P Assessment and plan (1) Pneumonia due to COVID-19 virus: (2) Multifocal pneumonia: (3) Acute renal failure: Qualifiers: Acute renal failure type: unspecified Qualified Code(s): N17.9 - Acute kidney failure, unspecified (4) Septic shock: (5) Multiorgan failure: (6) Acute hypoxic respiratory failure: (7) V-tach: (8) Shock: (9) NSTEMI (non-ST elevated myocardial infarction): (10) CAPRI (acute kidney injury): (11) 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 2 diabetes mellitus: (12) Morbid obesity: (13) CAD (coronary artery disease): (14) ICD (implantable cardioverter-defibrillator) in place: (15) Sustained ventricular tachycardia: (16) CHF (congestive heart failure): (17) Ischemic cardiomyopathy: (18) Systolic CHF, acute: (19) COPD (chronic obstructive pulmonary disease): (20) Obstructive sleep apnea: (21) Tobacco abuse: (22) Metabolic acidosis: (23) Lactic acidosis: (24) Hyperkalemia: (25) Hyponatremia: (26) Goals of care, counseling/discussion: (27) Staphylococcus aureus pneumonia: (28) Rhabdomyolysis: (29) Shock liver: (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 Status post cardioversion, Versed, fentanyl, ? Continues to have episodes of V. tach, now resolved ? Currently back on amiodarone drip, also on p.o. amiodarone 400 twice daily -Cardiology consulted Hyperglycemia with concern for HHS, increased anion gap 24.7, ? Continue insulin drip, ? Monitor blood sugars q. hourly, ? Monitor anion gap, ? Monitor potassium Shock liver ? Likely sec to septic shock ?continue to monitor closely NSTEMI -According to family, coronary angiography done at the [facility], was within normal limits, stents no significant obstruction, no intervention required he also had a pacemaker check about a month ago which was within normal limits -Serial EKGs, starting troponins, telemetry monitoring, ? Aspirin, statin, Brilinta ?cardiac echo ? Completed 48 hours of heparin drip, switch to subcu heparin ?cardiology consulted Acute hypoxic respiratory failure ? Likely secondary to COVID-19 pneumonia, multifocal bacterial pneumonia, Staph aureus pneumonia ? Some component related to systolic CHF, fluid overload ? Plan -Monitor respiratory status closely, ? Continue vancomycin ? Continue meropenem ? Continue remdesivir, -decadron ? Follow blood cultures, sputum cultures ? Subcu heparin drip as above, ? Currently intubated, sedated, minimize tidal volume, FiO2, ? Currently on fentanyl, Versed, Precedex for sedation, ? Daily spontaneous breathing trials, Gram-positive bacteremia, ? Continue vancomycin COVID-19 pneumonia, ? Continue remdesivir, ? Continue steroids Multifocal bacterial pneumonia, Staph aureus positive sputum cultures ? As above Septic shock, COVID-19 ? Currently on Levophed ? Off vasopressin ? off epinephrine drip ? Scheduled albumin ? Follow cultures Acute renal failure ? Likely secondary to sepsis, septic shock, COVID-19 ? Consulted nephrology, ? dialysis catheter placement, -Issues with CRRT machine ? no possible dialysis this evening, pending labs ? Monitor urine output,, good urine output ? 1 dose Lasix today, ? Will consider dialysis in the next 24 to 48 hours Metabolic acidosis ? Likely secondary to sepsis, septic shock, acute renal failure, next Lactic acidosis ? Likely sec to sepsis, Hyperkalemia, ? Status post D50, insulin, calcium gluconate Type 2 diabetes mellitus, blood sugars remain uncontrolled, in the high 400s start insulin drip COPD, no active wheezing, Full code ? Protonix for GI prophylaxis, ? Heparin drip for DVT prophylaxis, ? Prognosis guarded, status stable - Patient was seen this morning ? Plan on sedation vacation this morning, overnight he did have episodes of agitation, overbreathing the vent was placed on propofol, ? This morning, he is on 10 of propofol, off Versed, weaning off fentanyl, extended spoke to nursing staff, will avoid Versed, ? Precedex if needed, 25 mcg of fentanyl for agitation ? Remains on Levophed roughly 19 mcg, ? He has good urine output, ? Normotensive, ? Despite being on pressors? ? Afebrile overnight, - clear to auscultation bilaterally, is on 45% FiO2 -I had a detailed discussion with patient's mother at bedside, ?I discussed the patient's status is stable, prognosis is guarded, ? He remains on pressors, he is off 2 pressors but he is on 19 mcg of fentanyl, so he is still in septic shock, but improving, ? In terms of his multiorgan failure it is improving his shock liver is improving his acute renal failure is improving urine output improving his O2 requirements decreased to 45% ? The plan is for sedation vacation today, and continue sedation vacation throughout the next 24 hours,?the ultimate question is has the sustained significant neurologic injury being on multiple pressors, and his septic shock, will wean him off sedation and monitor his mentation, he has been on Versed which can take a prolonged period of time to get out of his system, ? He is still in shock he is still on pressors so once he is off pressors, he would be in better shape for possible extubation, will continue to monitor his oxygen requirements, ? Possible dialysis in the next 24 to 48 hours, to help eliminate toxins, to help with uremia, I will try to diurese him today ? I did discuss with patient's mother that might be a possibility that he might require prolonged intubation, might require trach and PEG, however there is also still a concern of significant neurologic injury if he does not wake up from sedation right now it is too soon to tell as he has been on Versed, he is still in renal failure and still in septic shock we will have to monitor him closely ? Will monitor over the next 24 hours continue sedation vacation, will avoid TPN for now as he is still on high-dose pressors, ? Patient's mother voiced understanding, all questions were Nicole agreed to proceed Attestations 2 Medical Necessity Statement*: Patient requires hospitalization for acute hypoxic respiratory failure, Staph aureus pneumonia, COVID-19 pneumonia, lactic acidosis, metabolic acidosis, acute renal failure, Coding Level of Care Code Critical Care >/= 30 minutes Critical care time (in minutes): 55 The high probability of a clinically significant, sudden or life threatening deterioration, as referenced in this documentation, required my full and direct attention, intervention and personal management. The critical care time shown is in addition to time spent performing any reported separately billable procedures and includes the following: [x] Data and vital sign review and interpretation [x ] Patient assessment, examination and intervention [x] Medication orders and management [x] Patient/Family updates as able [x] Care Coordination and Documentation. Diagnoses Pneumonia due to COVID-19 virus U07.1; J12.82 Multifocal pneumonia J18.9 Acute renal failure, unspecified acute renal failure type N17.9 Acute renal failure type: unspecified Septic shock A41.9; R65.21 Multiorgan failure Acute hypoxic respiratory failure J96.01 V-tach I47.20 Shock R57.9 NSTEMI (non-ST elevated myocardial infarction) I21.4 CAPRI (acute kidney injury) N17.9 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 2 diabetes mellitus E11.22; N18.2 Morbid obesity E66.01 Coronary artery disease involving [place] coronary artery of [place] heart without angina pectoris I25.10 ICD (implantable cardioverter-defibrillator) in place Z95.810 Sustained ventricular tachycardia I47.20 Acute on chronic systolic congestive heart failure I50.9 Ischemic cardiomyopathy I25.5 Systolic CHF, acute I50.21 COPD (chronic obstructive pulmonary disease) J44.9 Obstructive sleep apnea G47.33 Tobacco abuse Z72.0 Metabolic acidosis E87.20 Lactic acidosis E87.20 Hyperkalemia E87.5 Hyponatremia E87.1 Goals of care, counseling/discussion Z71.89 Staphylococcus aureus pneumonia J15.211 Rhabdomyolysis M62.82 Shock liver K72.00 HHS (hypothenar hammer syndrome) I73.89 Gram-positive bacteremia R78.81
[2023-08-15 19:44] LABS: Glucose Point of Care 231 mg/dL (70-110)
[2023-08-15 22:12] LABS: Glucose Point of Care 249 mg/dL (70-110)
[2023-08-15] MEDS: norepinephrine 4 MG/250 ML BAG 30 MG IV (23:32)
[2023-08-16] VITALS (58 sets, daily range): BP systolic 78–137; BP diastolic 50–90; PULSE 68–81; RESP 17–32; TEMP 36.6–37.8; O2SAT 89–99; BMI 47.4
[2023-08-16] MEDS: meropenem 1,000 MG in sodium chloride 0.9% (plus) 50 ML 100 MG IV ×3 (01:37→18:32)
[2023-08-16] MEDS: albumin 25 G/100 ML BAG 60 G IV ×2 (01:37→09:04)
[2023-08-16 01:43] LABS: Glucose Point of Care 260 mg/dL (70-110)
[2023-08-16] MEDS: insulin regular-human 250 UNIT in sodium chloride 0.9% 250 ML 11.11 UNIT IV (02:39)
[2023-08-16 03:33] LABS: Glucose Point of Care 241 mg/dL (70-110)
[2023-08-16] MEDS: ipratropium-albuterol 3 mL Neb INHALATION ×5 (03:52→19:52)
[2023-08-16] MEDS: dexmedeTOMIDine 0.9 % NaCL 400 MCG/100 ML PREMIX 14.35 MCG IV ×3 (04:03→20:02)
[2023-08-16 04:23] LABS: Glucose Point of Care 226 mg/dL (70-110)
[2023-08-16] MEDS: propofol 1,000 MG/100 ML INJ 24.1 MG IV (04:42)
[2023-08-16 04:50] LABS: Basophils % 0.2 %; Eosinophils % 0.1 %; Hematocrit 36.2 % (37-53); Lymphocytes # 0.6 10^3/uL (0.8-4.8); Lymphocytes % 4.6 %; Mean Corpuscular HGB Conc 34.5 g/dL (30-55); Mean Corpuscular Hemoglobin 29.3 pg (27-33); Mean Platelet Volume 11.2 fL (7.4-10.4); Monocytes # 0.8 10^3/uL (0.2-0.9); Neutrophils # 11.26 10^3/uL (1.8-7.7); Neutrophils % 85.9 %; Nucleated Red Blood Cells # 0.1 /100WBC; Nucleated Red Blood Cells % 0.6 %; Platelet Count 342 10^3/cmm (157-399); Red Blood Count 4.26 10^6/uL (3.85-5.65); Red Cell Distribution Width 15.3 % (12.1-15.1); White Blood Count 13.11 10^3/uL (3.29-11.43)
[2023-08-16 05:08] LABS: Lactate (Lactic Acid level) 2.1 mmol/L (0.5-2.2)
[2023-08-16 05:09] LABS: Alanine Aminotransferase 581 U/L (0-41); Albumin Level 3.8 g/dL (3.5-5.2); Alkaline Phosphatase 80 U/L (40-130); Anion Gap 28.1 (5-19); Aspartate Amino Transferase 282 U/L (0-40); C Reactive Protein 65.6 mg/L (0.0-4.9); Calcium 6.7 mg/dL (8.5-10.5); Carbon Dioxide 22 mmol/L (22-29); Chloride 77 mmol/L (98-107); Globulin 1.6 g/dL (1.3-4.6); Glomerular Filtration Rate 11.7 mL/min (90-130); Glucose 233 mg/dL (65-115); Magnesium 2.4 mg/dL (1.7-2.3); Osmolality Calculated 291 mOsm/kg (285-295); Potassium 5.1 mmol/L (3.5-5.1); Sodium 122 mmol/L (136-145); Total Bilirubin 1.5 mg/dL (0.15-1.2); Total Protein 5.4 g/dL (6.6-8.7)
[2023-08-16] MEDS: heparin 5,000 unit/mL INJ 1 mL 5000 UNIT SUBCUT ×3 (05:19→23:09)
[2023-08-16] MEDS: aspirin 81 mg EC Tablet PO (05:20)
[2023-08-16 05:21] LABS: Blood Urea Nitrogen 96 mg/dL (6-20); NT Pro B Type Natriuretic Pept 11473 pg/mL (0-125); Phosphorus 8.9 mg/dL (2.5-4.5); Procalcitonin 10.98 ng/mL (0-0.5)
[2023-08-16 05:30] LABS: ABG PCO2 43.9 mmHg (35-45); ABG PH Result 7.34 (7.35-7.45); Arterial Blood Gas Hematocrit 40.3 % (42-52); Base Excess ABG -2.1 mmol/L (-2.0-2.0); Blood Gas Operator Identificat JB; Blood Gas Sample Site Brachial, left; Blood Gas Sample Type Arterial; HCO3 ABG 23.8 mmol/L (22-26); Oxygen Device VENT; PO2 ABG 69.5 mmHg (80.0-100.0); PO2 FiO2 Ratio Arterial Blood 0
[2023-08-16 05:31] LABS: Blood Gas Tidal Volume 0.45
[2023-08-16 05:38] LABS: Creatine Phosphokinase 1012 U/L (39-308)
--- NOTE | 2023-08-16 05:39 | P.PN_ITS ---
Subjective 2 Subjective: Remains on levophed, sedation reduced Vitals/I&O/Wt Last Vital Signs Temp 98.2 F 08/15/23 04:00 Pulse 76 08/16/23 04:00 Resp 17 08/16/23 03:53 BP 99/63 08/16/23 04:00 Pulse Ox 96 08/16/23 04:00 O2 Del Method Mechanical Ventilation 08/16/23 04:00 FiO2 45 08/16/23 04:00 08/15/23 08/15/23 08/16/23 14:59 22:59 06:59 Intake Total 653.875 / 653.875 681.787 / 1335.662 443.919 / 1779.581 Output Total 275 / 275 Balance 653.875 / 653.875 681.787 / 1335.662 168.919 / 1504.581 Weight last 48 hrs Weight 128.48 kg Physical Exam 2 Urinary Catheter Management: Burciaga: Cath Placed During This Visit: yes Reason for Continuing Indwelling Catheter: Accurate Measurement of Urinary Output in Critically Ill Patients Urinary Catheter Date of Insertion: 08/11/23 Urinary Catheter Time of Insertion: 12:38 Data 08/16/23 04:22 08/16/23 04:22 Micro: Microbiology 08/12/23 04:50 Blood Culture - Final Blood 08/12/23 04:50 Blood Culture - Preliminary Blood Other data: seen via telemedicine with assistance of RN at bedside A&P Assessment and plan (1) Acute renal failure: Qualifiers: Acute renal failure type: unspecified Qualified Code(s): N17.9 - Acute kidney failure, unspecified Plan 1. Acute kidney injury, in the setting of shock, cardiac arrest. Baseline creatinine was normal in November 2022. 2. COVID-pneumonia, VDRF, oxygenating well on 45% FIO2 3. Hyponatremia, hypervolemic, received one dose lasix, minimal urine output. 4. Metabolic acidosis, improved, 5. History of COPD, coronary artery disease Plan: will try intermittent HD. 4h, 1.5L UF as BP tolerates today. D/C bicarbonate infusion. Attestations 2 Medical Necessity Statement*: critically ill in ICU Time Spent in Patient Care: 16 - 35 minutes Coding Level of Care Code Acute Code for Chg Fwd Diagnoses Acute renal failure, unspecified acute renal failure type N17.9 Acute renal failure type: unspecified
--- NOTE | 2023-08-16 07:00 | XRR_ITS ---
PROCEDURE INFORMATION: Exam: XR Chest Exam date and time: 08/16/2023 6:59 AM Age: 58 years old Clinical indication: Shortness of breath; Additional info: SOB TECHNIQUE: Imaging protocol: Radiologic exam of the chest. Views: 1 view. COMPARISON: CR XR chest 1V portable [id number] 08/15/2023 7:38 AM FINDINGS: Tubes, catheters and devices: Stable support hardware. Lungs: Increasing vascular and interstitial prominence more noticeable in the right lung. Pleural spaces: Unremarkable. No pleural effusion. No pneumothorax. Heart/Mediastinum: Stable borderline cardiomegaly. Bones/joints: Unremarkable. XR/XR chest 1V portable [id number] IMPRESSION: Increasing vascular and interstitial prominence more noticeable in the right lung. No focal consolidation is evident at this time except possibly in the left base/retrocardiac region which is unchanged.
[2023-08-16 07:27] LABS: Glucose Point of Care 171 mg/dL (70-110)
[2023-08-16 08:26] LABS: Glucose Point of Care 154 mg/dL (70-110)
[2023-08-16 09:03] LABS: Glucose Point of Care 149 mg/dL (70-110)
[2023-08-16] MEDS: amiodarone 200 mg Tablet 400 MG PO ×2 (09:08→18:35)
[2023-08-16] MEDS: norepinephrine 4 MG/250 ML BAG 37.5 MG IV (09:08)
[2023-08-16] MEDS: ticagrelor 90 mg Tablet PO ×2 (09:09→18:36)
[2023-08-16] MEDS: remdesivir 100 MG in sodium chloride 0.9% (100 ml) 80 ML IV (09:33)
[2023-08-16 10:10] LABS: Glucose Point of Care 112 mg/dL (70-110)
[2023-08-16 11:00] LABS: Glucose Point of Care 114 mg/dL (70-110)
[2023-08-16 11:52] LABS: Glucose Point of Care 100 mg/dL (70-110)
[2023-08-16] MEDS: norepinephrine 4 MG/250 ML BAG 30 MG IV ×2 (12:41→20:55)
[2023-08-16 13:19] LABS: Glucose Point of Care 107 mg/dL (70-110)
[2023-08-16 14:16] LABS: Glucose Point of Care 76 mg/dL (70-110)
[2023-08-16 15:07] LABS: Glucose Point of Care 88 mg/dL (70-110)
[2023-08-16] MEDS: propofol 1,000 MG/100 ML INJ 20.66 MG IV ×2 (15:10→23:10)
[2023-08-16 16:35] LABS: Glucose Point of Care 111 mg/dL (70-110)
[2023-08-16 17:03] LABS: Glucose Point of Care 117 mg/dL (70-110)
[2023-08-16 18:03] LABS: Glucose Point of Care 132 mg/dL (70-110)
--- NOTE | 2023-08-16 18:03 | P.PN_ITS ---
Subjective 2 Subjective: Patient was seen this morning, remains on Levophed, weaning down, 45% FiO2, sedation being weaned off, he is on fentanyl, Precedex, monitor mentation, plan on dialysis today, remains afebrile, remains on pressors, remains intubated, sedated, inflammatory markers trending down, nephrology plans on dialysis today, Vitals/I&O/Wt Last Vital Signs Temp 98.8 F 08/16/23 16:30 Pulse 81 08/16/23 16:30 Resp 24 H 08/16/23 17:15 BP 102/75 08/16/23 16:30 Pulse Ox 96 08/16/23 17:15 O2 Del Method Mechanical Ventilation 08/16/23 15:49 FiO2 45 08/16/23 17:15 08/16/23 08/16/23 08/16/23 06:59 14:59 22:59 Intake Total 618.546 / 2074.241 747.524 / 747.524 Output Total 275 / 275 180 / 180 Balance 343.546 / 1799.241 747.524 / 747.524 -180 / 567.524 Weight last 48 hrs Weight 129.274 kg Weight 128.48 kg Physical Exam 2 Const: COMMON NORMALS: no acute distress OTHER: Intubated, sedated on mechanical ventilation Resp: COMMON NORMALS: normal respiratory effort, No retractions, No use of accessory muscles and clear to auscultation bilaterally AUSCULTATION: clear to auscultation bilaterally Cardio: COMMON NORMALS: regular rate, regular rhythm, S1 normal heart sound present and S2 normal heart sound present RATE: regular rate RHYTHM: r egular rhythm HEART SOUNDS: S1 normal heart sound present and S2 normal heart sound present GI: COMMON NORMALS: Normal to inspection, nondistended, normoactive bowel sounds present and non-tender Extremity: COMMON NORMALS: no pedal edema Urinary Catheter Management: Burciaga: Cath Placed During This Visit: yes Reason for Continuing Indwelling Catheter: Accurate Measurement of Urinary Output in Critically Ill Patients Urinary Catheter Date of Insertion: 08/11/23 Urinary Catheter Time of Insertion: 12:38 Sepsis: Is patient septic: Yes Focused sepsis exam performed: Yes F ocused sepsis exam: DP PT pulses palpable, capillary refill less than 3 seconds, no significant mottling, good Date exam was performed: 08/16/23 Time exam was performed: 08:30 Data 08/16/23 04:22 08/16/23 04:22 Micro: Microbiology 08/12/23 04:50 Blood Culture - Final Blood 08/12/23 04:50 Blood Culture - Preliminary Blood A&P Assessment and plan (1) Pneumonia due to COVID-19 virus: (2) Multifocal pneumonia: (3) Acute renal failure: Qualifiers: Acute renal failure type: unspecified Qualified Code(s): N17.9 - Acute kidney failure, unspecified (4) Septic shock: (5) Multiorgan failure: (6) Acute hypoxic respiratory failure: (7) V-tach: (8) Shock: (9) NSTEMI (non-ST elevated myocardial infarction): (10) CAPRI (acute kidney injury): (11) 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 2 diabetes mellitus: (12) Morbid obesity: (13) CAD (coronary artery disease): (14) ICD (implantable cardioverter-defibrillator) in place: (15) Sustained ventricular tachycardia: (16) CHF (congestive heart failure): (17) Ischemic cardiomyopathy: (18) Systolic CHF, acute: (19) COPD (chronic obstructive pulmonary disease): (20) Obstructive sleep apnea: (21) Tobacco abuse: (22) Metabolic acidosis: (23) Lactic acidosis: (24) Hyperkalemia: (25) Hyponatremia: (26) Goals of care, counseling/discussion: (27) Staphylococcus aureus pneumonia: (28) Rhabdomyolysis: (29) Shock liver: (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 Likely component of hyponatremia, uremia, sepsis ? Some component related to sedating medications such as Versed, ? Will get dialysis today ?continue neurochecks, ? Monitor mentation closely, ? If he continues to be nonresponsive will consider CT of the head, concerns for anoxic injury Ventricular tachycardia ? Status post cardioversion, Versed, fentanyl, ? Continues to have episodes of V. tach, now resolved ? p.o. amiodarone 400 twice daily -Cardiology consulted Hyperglycemia with concern for HHS, increased anion gap 24.7, ? Continue insulin drip, ? Monitor blood sugars q. hourly, ? Monitor anion gap, ? Monitor potassium Shock liver ? Likely sec to septic shock ?continue to monitor closely NSTEMI -According to family, coronary angiography done at the [facility], was within normal limits, stents no significant obstruction, no intervention required he also had a pacemaker check about a month ago which was within normal limits -Serial EKGs, starting troponins, telemetry monitoring, ? Aspirin, statin, Brilinta ?cardiac echo ? Completed 48 hours of heparin drip, switch to subcu heparin ?cardiology consulted Acute hypoxic respiratory failure ? Likely secondary to COVID-19 pneumonia, multifocal bacterial pneumonia, Staph aureus pneumonia ? Some component related to systolic CHF, fluid overload ? Plan -Monitor respiratory status closely, ? Continue vancomycin ? Continue meropenem ? Continue remdesivir, -decadron ? Follow blood cultures, sputum cultures ? Subcu heparin drip as above, ? Currently intubated, sedated, minimize tidal volume, FiO2, ? Currently on fentanyl, Versed, Precedex for sedation, ? Daily spontaneous breathing trials, Gram-positive bacteremia, ? Continue vancomycin COVID-19 pneumonia, ? Continue remdesivir, ? Continue steroids Multifocal bacterial pneumonia, Staph aureus positive sputum cultures ? As above Septic shock, COVID-19 ? Currently on Levophed ? Off vasopressin ? off epinephrine drip ? Scheduled albumin ? Follow cultures Acute renal failure ? Likely secondary to sepsis, septic shock, COVID-19 ? Consulted nephrology, ? dialysis catheter placement, -Issues with CRRT machine ? no possible dialysis this evening, pending labs ? Monitor urine output,, good urine output ? 1 dose Lasix today, ? Will consider dialysis in the next 24 to 48 hours ? Plan on dialysis today Metabolic acidosis ? Likely secondary to sepsis, septic shock, acute renal failure, next Lactic acidosis ? Likely sec to sepsis, Hyperkalemia, ? Status post D50, insulin, calcium gluconate Type 2 diabetes mellitus, blood sugars remain uncontrolled, in the high 400s start insulin drip COPD, no active wheezing, Full code ? Protonix for GI prophylaxis, ? Heparin drip for DVT prophylaxis, ? Prognosis guarded, status stable Attestations 2 Medical Necessity Statement*: Patient requires hospitalization for septic shock remains on Levophed, respiratory failure remains intubated sedated on mechanical ventilation 45% FiO2 acute renal failure, now with acute encephalopathy Coding Level of Care Code Critical Care >/= 30 minutes Critical care time (in minutes): 45 The high probability of a clinically significant, sudden or life threatening deterioration, as referenced in this documentation, required my full and direct attention, intervention and personal management. The critical care time shown is in addition to time spent performing any reported separately billable procedures and includes the following: [x] Data and vital sign review and interpretation [x ] Patient assessment, examination and intervention [x] Medication orders and management [x] Patient/Family updates as able [x] Care Coordination and Documentation. Diagnoses Pneumonia due to COVID-19 virus U07.1; J12.82 Multifocal pneumonia J18.9 Acute renal failure, unspecified acute renal failure type N17.9 Acute renal failure type: unspecified Septic shock A41.9; R65.21 Multiorgan failure Acute hypoxic respiratory failure J96.01 V-tach I47.20 Shock R57.9 NSTEMI (non-ST elevated myocardial infarction) I21.4 CAPRI (acute kidney injury) N17.9 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 2 diabetes mellitus E11.22; N18.2 Morbid obesity E66.01 Coronary artery disease involving [place] coronary artery of [place] heart without angina pectoris I25.10 ICD (implantable cardioverter-defibrillator) in place Z95.810 Sustained ventricular tachycardia I47.20 Acute on chronic systolic congestive heart failure I50.9 Ischemic cardiomyopathy I25.5 Systolic CHF, acute I50.21 COPD (chronic obstructive pulmonary disease) J44.9 Obstructive sleep apnea G47.33 Tobacco abuse Z72.0 Metabolic acidosis E87.20 Lactic acidosis E87.20 Hyperkalemia E87.5 Hyponatremia E87.1 Goals of care, counseling/discussion Z71.89 Staphylococcus aureus pneumonia J15.211 Rhabdomyolysis M62.82 Shock liver K72.00 HHS (hypothenar hammer syndrome) I73.89 Gram-positive bacteremia R78.81 Acute encephalopathy G93.40 Uremia N19
[2023-08-16] MEDS: pantoprazole 40 mg SDV IVP (18:32)
[2023-08-16] MEDS: atorvastatin 40 mg Tablet 80 MG PO (18:35)
[2023-08-16 19:56] LABS: Glucose Point of Care 223 mg/dL (70-110)
[2023-08-16 20:54] LABS: Glucose Point of Care 225 mg/dL (70-110)
[2023-08-16] MEDS: insulin lispro 100 unit/1 mL SUBCUT (20:55)
--- NOTE | 2023-08-16 21:29 | PC.NURSE ---
At the beginning of this nurse's shift the fentanyl drip was on running at 100 mcg/hr. The MAR showed that it had been stopped. MAR changed to reflect the actual rate of the fentanyl drip.
[2023-08-16] MEDS: dexmedeTOMIDine 0.9 % NaCL 400 MCG/100 ML PREMIX 22.95 MCG IV (23:40)
[2023-08-17] VITALS (44 sets, daily range): BP systolic 63–121; BP diastolic 39–76; PULSE 61–74; RESP 17–35; TEMP 36.2–36.9; O2SAT 88–100; BMI 47.4
[2023-08-17] MEDS: ipratropium-albuterol 3 mL Neb INHALATION ×7 (00:03→23:43)
[2023-08-17] MEDS: chlorhexidine gluconate 4% Btl 118 mL 1 APPLIC TOPICAL (01:05)
[2023-08-17] MEDS: meropenem 1,000 MG in sodium chloride 0.9% (plus) 50 ML 100 MG IV ×2 (01:07→08:25)
[2023-08-17] MEDS: fentaNYL 1,000 MCG/100 ML BAG 15 MCG IV ×4 (01:53→23:18)
[2023-08-17 03:59] LABS: Basophils % 0.2 %; Eosinophils % 0.1 %; Hematocrit 36.8 % (37-53); Lymphocytes # 0.8 10^3/uL (0.8-4.8); Lymphocytes % 4.3 %; Mean Corpuscular HGB Conc 33.7 g/dL (30-55); Mean Corpuscular Hemoglobin 29.2 pg (27-33); Mean Corpuscular Volume 86.6 fl (82-101); Mean Platelet Volume 11.4 fL (7.4-10.4); Monocytes # 1.5 10^3/uL (0.2-0.9); Monocytes % 8.1 %; Neutrophils # 15.12 10^3/uL (1.8-7.7); Neutrophils % 84.3 %; Nucleated Red Blood Cells # 0.1 /100WBC; Nucleated Red Blood Cells % 0.3 %; Platelet Count 291 10^3/cmm (157-399); Red Blood Count 4.25 10^6/uL (3.85-5.65); Red Cell Distribution Width 15.7 % (12.1-15.1); White Blood Count 17.94 10^3/uL (3.29-11.43)
[2023-08-17 04:20] LABS: Alanine Aminotransferase 399 U/L (0-41); Albumin Level 3.4 g/dL (3.5-5.2); Alkaline Phosphatase 90 U/L (40-130); Anion Gap 26.8 (5-19); Aspartate Amino Transferase 177 U/L (0-40); C Reactive Protein 54.1 mg/L (0.0-4.9); Calcium 7.2 mg/dL (8.5-10.5); Carbon Dioxide 23 mmol/L (22-29); Chloride 80 mmol/L (98-107); Globulin 2.2 g/dL (1.3-4.6); Glomerular Filtration Rate 11.2 mL/min (90-130); Glucose 256 mg/dL (65-115); Magnesium 2.4 mg/dL (1.7-2.3); Osmolality Calculated 296 mOsm/kg (285-295); Potassium 4.8 mmol/L (3.5-5.1); Sodium 125 mmol/L (136-145); Total Bilirubin 1.7 mg/dL (0.15-1.2); Total Protein 5.6 g/dL (6.6-8.7)
[2023-08-17 04:29] LABS: NT Pro B Type Natriuretic Pept 11206 pg/mL (0-125); Procalcitonin 8.99 ng/mL (0-0.5)
[2023-08-17 04:32] LABS: Lactate (Lactic Acid level) 1.5 mmol/L (0.5-2.2)
[2023-08-17 04:43] LABS: Phosphorus 9.7 mg/dL (2.5-4.5)
[2023-08-17 04:44] LABS: Blood Urea Nitrogen 89 mg/dL (6-20)
[2023-08-17 04:46] LABS: Creatine Phosphokinase 1265 U/L (39-308)
[2023-08-17 05:15] LABS: ABG PCO2 45.3 mmHg (35-45); ABG PH Result 7.32 (7.35-7.45); Base Excess ABG -3.1 mmol/L (-2.0-2.0); Blood Gas Allen Test Pos; Blood Gas Sample Site Radial, left; Blood Gas Sample Type Arterial; Blood Gas Tidal Volume 0.45; HCO3 ABG 23.2 mmol/L (22-26); Oxygen Device VENT; PO2 ABG 84.6 mmHg (80.0-100.0); PO2 FiO2 Ratio Arterial Blood 0
[2023-08-17] MEDS: vancomycin 1,250 MG/250 ML PIGGYBACK 250 MG IV (05:38)
[2023-08-17] MEDS: aspirin 81 mg EC Tablet PO (05:39)
[2023-08-17] MEDS: heparin 5,000 unit/mL INJ 1 mL 5000 UNIT SUBCUT ×3 (05:39→21:44)
[2023-08-17] MEDS: propofol 1,000 MG/100 ML INJ 10.33 MG IV ×2 (05:42→15:24)
--- NOTE | 2023-08-17 07:00 | XRR_ITS ---
PROCEDURE INFORMATION: Exam: XR Chest Exam date and time: 08/17/2023 6:54 AM Age: 58 years old Clinical indication: Shortness of breath; Additional info: SOB TECHNIQUE: Imaging protocol: Radiologic exam of the chest. Views: 1 view. COMPARISON: 1. CR XR chest 1V portable [id number] 08/16/2023 6:59 AM 2. CR XR chest 1V portable [id number] 08/15/2023 7:38 AM 3. CR (CHEST, ) 08/14/2023 6:08 AM FINDINGS: Tubes, catheters and devices: Endotracheal tube terminates approximately 3 cm above the eloisa. Enteric tube courses below the left hemidiaphragm and terminates beyond the field of view. Single lead AICD with left chest generator. Lungs: Pulmonary hypoinflation with bilateral linear atelectasis versus scarring. Decreased retrocardiac left lower lung opacification and mildly improved right lung reticulation. Intervally decreased pulmonary vascular congestion. Pleural spaces: No substantial pleural effusion or pneumothorax. Heart/Mediastinum: Stable borderline cardiomegaly. Bones/joints: Redemonstrated left rib fracture deformities. XR/XR chest 1V portable [id number] IMPRESSION: Pulmonary hypoinflation with decreased retrocardiac left lower lung opacification and mildly improved right lung reticulation.
[2023-08-17] MEDS: dexmedeTOMIDine 0.9 % NaCL 400 MCG/100 ML PREMIX 5.74 MCG IV (07:29)
[2023-08-17] MEDS: norepinephrine 4 MG/250 ML BAG 7.5 MG IV (08:10)
[2023-08-17] MEDS: insulin lispro 100 unit/1 mL SUBCUT ×3 (08:10→18:17)
[2023-08-17 08:11] LABS: Glucose Point of Care 269 mg/dL (70-110)
[2023-08-17] MEDS: amiodarone 200 mg Tablet 400 MG PO ×2 (08:25→17:14)
[2023-08-17] MEDS: ticagrelor 90 mg Tablet PO ×2 (08:25→17:14)
--- NOTE | 2023-08-17 09:13 | PC.HD ---
Levophed gtt increased pre-tx per KILN PACKER, BP stable throughout tx. Catheter positional. Frequent flushing of blood lines required due to increased venous pressures per Dr Davidson's instructions. By tx end, clots visible at top of dialyzer, venous chamber (large), and along the length of the venous blood line, and when pt disconnected a long thin clot was aspirated from the venous cath port prior to heparinization, Dr Davidson aware.
--- NOTE | 2023-08-17 09:17 | XRR_ITS ---
PROCEDURE INFORMATION: Exam: XR Abdomen Exam date and time: 08/17/2023 11:32 AM Age: 58 years old Clinical indication: Abnormal findings; Mass, lump, or swelling; Other parts of digestive tract; Patient HX: Decreased bowel sounds; Eval for ileus TECHNIQUE: Imaging protocol: Radiologic exam of the abdomen. Views: Frontal supine view of the abdomen. 1 View. COMPARISON: 1. CR XR KUB [id number] 03/09/2022 7:38 AM 2. CR XR chest 1V portable [id number] 08/16/2023 6:59 AM FINDINGS: Tubes, catheters and devices: Partially visualized AICD lead. Enteric tube terminates at the stomach with side hole in the stomach. Lungs: Redemonstrated medial left basilar opacity. Gastrointestinal tract: Air within the stomach. Paucity of bowel gas. No air-filled dilated bowel loops. Bones/joints: Mild degenerative changes along the spine. XR/XR KUB portable [id number] IMPRESSION: Enteric tube terminates in the stomach with paucity of bowel gas.
[2023-08-17 11:21] LABS: Glucose Point of Care 223 mg/dL (70-110)
--- NOTE | 2023-08-17 13:00 | P.PN_ITS ---
Subjective 2 Subjective: remains on levophed 6 mcg Vitals/I&O/Wt Last Vital Signs Temp 98.1 F 08/17/23 08:00 Pulse 68 08/17/23 11:43 Resp 17 08/17/23 11:45 BP 84/48 08/17/23 11:00 Pulse Ox 96 08/17/23 11:45 O2 Del Method Mechanical Ventilation 08/17/23 11:43 FiO2 40 08/17/23 11:50 08/16/23 08/17/23 08/17/23 22:59 06:59 14:59 Intake Total 743.756 / 2541.280 597.030 / 3138.310 606.820 / 606.820 Output Total 330 / 2856 100 / 2956 Balance 413.756 / -314.720 497.030 / 182.310 606.820 / 606.820 Weight last 48 hrs Weight 129.274 kg Weight 131.6 kg Weight 129.274 kg Physical Exam 2 Urinary Catheter Management: Burciaga: Cath Placed During This Visit: yes Reason for Continuing Indwelling Catheter: Accurate Measurement of Urinary Output in Critically Ill Patients Urinary Catheter Date of Insertion: 08/11/23 Urinary Catheter Time of Insertion: 12:38 Data 08/17/23 03:22 08/17/23 03:22 Other Labs: alb 3.4, Ca 7.2, phos 9.7, Mg 2.4, CK 1264 ABG Interpretation 1: 08/11/23 08/12/23 08/12/23 16:55 04:10 13:00 ABG pH 7.20 L 7.15 L* 7.16 L* ABG pCO2 66.9 H* 57.6 H 55.5 H ABG pO2 325.0 H 78.6 L 99.1 ABG HCO3 26.3 H 20.0 L 19.9 L ABG O2 Saturation 92.5 96.3 ABG Base Excess -3.5 L -9.9 L -9.4 L 08/13/23 08/14/23 08/15/23 04:15 04:35 04:40 ABG pH 7.21 L 7.33 L 7.33 L ABG pCO2 57.9 H 52.3 H 48.6 H ABG pO2 83.0 65.9 L 59.8 L ABG HCO3 23.1 27.7 H 25.5 ABG O2 Saturation ABG Base Excess -5.5 L 1.1 -0.9 08/16/23 08/17/23 05:00 04:40 ABG pH 7.34 L 7.32 L ABG pCO2 43.9 45.3 H ABG pO2 69.5 L 84.6 ABG HCO3 23.8 23.2 ABG O2 Saturation ABG Base Excess -2.1 L -3.1 L Other data: seen via telemedicnie with assistance of RN at bedside A&P Assessment and plan (1) Acute renal failure: Qualifiers: Acute renal failure type: unspecified Qualified Code(s): N17.9 - Acute kidney failure, unspecified Plan 1. Acute kidney injury, in the setting of shock, cardiac arrest. Baseline creatinine was normal in November 2022. Tolerated HD yesterday, about 2L UF 2. COVID-pneumonia, VDRF, oxygenating well on 45% FIO2 3. Hyponatremia, hypervolemic 4. Metabolic acidosis, improved, 5. History of COPD, coronary artery disease Plan: HD again today. 4h, 2L UF as BP tolerates Attestations 2 Medical Necessity Statement*: critically ill in ICU Time Spent in Patient Care: 16 - 35 minutes Coding Level of Care Code Acute Code for [employer] Fwd Diagnoses Acute renal failure, unspecified acute renal failure type N17.9 Acute renal failure type: unspecified
[2023-08-17 15:43] LABS: Vancomycin Random 50.5 ug/mL (20.0-40.0)
[2023-08-17] MEDS: pantoprazole 40 mg SDV IVP (17:13)
[2023-08-17] MEDS: atorvastatin 40 mg Tablet 80 MG PO (17:14)
[2023-08-17 17:28] LABS: Glucose Point of Care 199 mg/dL (70-110)
--- NOTE | 2023-08-17 17:34 | P.PN_ITS ---
Subjective 2 Subjective: Patient was seen this morning, currently intubated, sedated, on minimal sedation, he does have a gag reflex, does not bite down on the ET tube, pupils are reactive to light, does withdraw from pain, he is still on 9 of Levophed, continues to have poor urine output acute renal failure plans on dialysis today, will plan on starting trickle tube feedings, as his Levophed requirement started to decrease, will continue to minimize sedation, monitor mentation, has 40% FiO2 Vitals/I&O/Wt Last Vital Signs Temp 98.3 F 08/17/23 16:00 Pulse 69 08/17/23 16:00 Resp 18 08/17/23 15:45 BP 97/51 08/17/23 16:00 Pulse Ox 96 08/17/23 16:00 O2 Del Method Mechanical Ventilation 08/17/23 16:00 FiO2 40 08/17/23 16:00 08/17/23 08/17/23 08/17/23 06:59 14:59 22:59 Intake Total 597.030 / 3138.310 656.820 / 656.820 206.026 / 862.846 Output Total 100 / 2956 50 / 50 Balance 497.030 / 182.310 656.820 / 656.820 156.026 / 812.846 Weight last 48 hrs Weight 129.274 kg Weight 131.6 kg Weight 129.274 kg Physical Exam 2 Const: COMMON NORMALS: no acute distress Neck/C-Spine: COMMON NORMALS: no JVD Resp: COMMON NORMALS: normal respiratory effort, No retractions, No use of accessory muscles and clear to auscultation bilaterally AUSCULTATION: clear to auscultation bilaterally Cardio: COMMON NORMALS: no JVD, regular rate, regular rhythm, S1 normal heart sound present and S2 normal heart sound present RATE: regular rate RHYTHM: regular rhythm HEART SOUNDS: S1 normal heart sound present and S2 normal heart sound present GI: COMMON NORMALS: Normal to inspection, nondistended, normoactive bowel sounds present and non-tender Extremity: COMMON NORMALS: no pedal edema Urinary Catheter Management: Burciaga: Cath Placed During This Visit: yes Reason for Continuing Indwelling Catheter: Accurate Measurement of Urinary Output in Critically Ill Patients Urinary Catheter Date of Insertion: 08/11/23 Urinary Catheter Time of Insertion: 12:38 Data 08/17/23 03:22 08/17/23 03:22 A&P Assessment and plan (1) Acute encephalopathy: (2) Pneumonia due to COVID-19 virus: (3) Multifocal pneumonia: (4) Acute renal failure: Qualifiers: Acute renal failure type: unspecified Qualified Code(s): N17.9 - Acute kidney failure, unspecified (5) Septic shock: (6) Multiorgan failure: (7) Acute hypoxic respiratory failure: (8) V-tach: (9) Shock: (10) NSTEMI (non-ST elevated myocardial infarction): (11) CAPRI (acute kidney injury): (12) 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 2 diabetes mellitus: (13) Morbid obesity: (14) CAD (coronary artery disease): (15) ICD (implantable cardioverter-defibrillator) in place: (16) Sustained ventricular tachycardia: (17) CHF (congestive heart failure): (18) Ischemic cardiomyopathy: (19) Systolic CHF, acute: (20) COPD (chronic obstructive pulmonary disease): (21) Obstructive sleep apnea: (22) Tobacco abuse: (23) Metabolic acidosis: (24) Lactic acidosis: (25) Hyperkalemia: (26) Hyponatremia: (27) Goals of care, counseling/discussion: (28) Staphylococcus aureus pneumonia: (29) Rhabdomyolysis: (30) Shock liver: (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 Likely component of hyponatremia, uremia, sepsis ? Some component related to sedating medications such as Versed, ? Will get dialysis today ?continue neurochecks, ? Monitor mentation closely, ? If he continues to be nonresponsive will consider CT of the head, concerns for anoxic injury Ventricular tachycardia ? Status post cardioversion, Versed, fentanyl, ? Continues to have episodes of V. tach, now resolved ? p.o. amiodarone 400 twice daily -Cardiology consulted Hyperglycemia with concern for HHS, increased anion gap 24.7, ? Continue insulin drip, ? Monitor blood sugars q. hourly, ? Monitor anion gap, ? Monitor potassium Shock liver ? Likely sec to septic shock ?continue to monitor closely NSTEMI -According to family, coronary angiography done at the [facility] was within normal limits, stents no significant obstruction, no intervention required he also had a pacemaker check about a month ago which was within normal limits -Serial EKGs, starting troponins, telemetry monitoring, ? Aspirin, statin, Brilinta ?cardiac echo ? Completed 48 hours of heparin drip, switch to subcu heparin ?cardiology consulted Acute hypoxic respiratory failure ? Likely secondary to COVID-19 pneumonia, multifocal bacterial pneumonia, Staph aureus pneumonia ? Some component related to systolic CHF, fluid overload ? Plan -Monitor respiratory status closely, ? Continue vancomycin ? Continue meropenem ? Completed remdesivir, -decadron ? Follow blood cultures, sputum cultures ? Subcu heparin drip as above, ? Currently intubated, sedated, minimize tidal volume, FiO2, ? Currently on fentanyl, Versed, Precedex for sedation, ? Daily spontaneous breathing trials, Gram-positive bacteremia, ? Continue vancomycin COVID-19 pneumonia, ? Continue remdesivir, ? Continue steroids Multifocal bacterial pneumonia, Staph aureus positive sputum cultures ? As above Septic shock, COVID-19 ? Currently on Levophed ? Off vasopressin ? off epinephrine drip ? Scheduled albumin ? Follow cultures Acute renal failure ? Likely secondary to sepsis, septic shock, COVID-19 ? Consulted nephrology, ? dialysis catheter placement, -Issues with CRRT machine ? no possible dialysis this evening, pending labs ? Monitor urine output, lackluster for the last 2448 hrs. ? Dialysis today ? Plan on dialysis today Metabolic acidosis ? Likely secondary to sepsis, septic shock, acute renal failure, next Lactic acidosis ? Likely sec to sepsis, Hyperkalemia, ? Status post D50, insulin, calcium gluconate Type 2 diabetes mellitus, blood sugars remain uncontrolled, in the high 400s start insulin drip COPD, no active wheezing, Full code ? Protonix for GI prophylaxis, ? Heparin drip for DVT prophylaxis, ? Prognosis guarded, status stable Attestations 2 Medical Necessity Statement*: Patient requires hospitalization for septic shock, sepsis, remains on Levophed, respiratory failure on 40% FiO2, acute renal failure, acute encephalopathy Coding Level of Care Code Critical Care >/= 30 minutes Critical care time (in minutes): 45 The high probability of a clinically significant, sudden or life threatening deterioration, as referenced in this documentation, required my full and direct attention, intervention and personal management. The critical care time shown is in addition to time spent performing any reported separately billable procedures and includes the following: [x] Data and vital sign review and interpretation [x ] Patient assessment, examination and intervention [x] Medication orders and management [x] Patient/Family updates as able [x] Care Coordination and Documentation. Diagnoses Acute encephalopathy G93.40 Pneumonia due to COVID-19 virus U07.1; J12.82 Multifocal pneumonia J18.9 Acute renal failure, unspecified acute renal failure type N17.9 Acute renal failure type: unspecified Septic shock A41.9; R65.21 Multiorgan failure Acute hypoxic respiratory failure J96.01 V-tach I47.20 Shock R57.9 NSTEMI (non-ST elevated myocardial infarction) I21.4 CAPRI (acute kidney injury) N17.9 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 2 diabetes mellitus E11.22; N18.2 Morbid obesity E66.01 Coronary artery disease involving [place] coronary artery of [place] heart without angina pectoris I25.10 ICD (implantable cardioverter-defibrillator) in place Z95.810 Sustained ventricular tachycardia I47.20 Acute on chronic systolic congestive heart failure I50.9 Ischemic cardiomyopathy I25.5 Systolic CHF, acute I50.21 COPD (chronic obstructive pulmonary disease) J44.9 Obstructive sleep apnea G47.33 Tobacco abuse Z72.0 Metabolic acidosis E87.20 Lactic acidosis E87.20 Hyperkalemia E87.5 Hyponatremia E87.1 Goals of care, counseling/discussion Z71.89 Staphylococcus aureus pneumonia J15.211 Rhabdomyolysis M62.82 Shock liver K72.00 HHS (hypothenar hammer syndrome) I73.89 Gram-positive bacteremia R78.81 Uremia N19
[2023-08-17] MEDS: albumin 12.5 GM/50 ML VIAL IV ×3 (17:53→19:28)
[2023-08-17] MEDS: heparin, porcine 1,000 unit/mL INJ 10 mL 1000 UNIT IV (18:41)
[2023-08-17] MEDS: norepinephrine 4 MG/250 ML BAG 60 MG IV ×2 (18:59→23:17)
[2023-08-17 21:05] LABS: Glucose Point of Care 129 mg/dL (70-110)
[2023-08-18] VITALS (61 sets, daily range): BP systolic 86–119; BP diastolic 47–79; PULSE 66–120; RESP 13–22; TEMP 36.8–37; O2SAT 92–100; BMI 47.5
[2023-08-18] MEDS: propofol 1,000 MG/100 ML INJ 10.33 MG IV (00:16)
[2023-08-18] MEDS: dexmedeTOMIDine 0.9 % NaCL 400 MCG/100 ML PREMIX 5.74 MCG IV (00:33)
[2023-08-18 01:23] LABS: Reflex FDPQ test REFLEX FDP QUEST TES
[2023-08-18 01:38] LABS: INR 1.32 (0.8-1.2)
[2023-08-18 01:39] LABS: Fibrinogen 286 mg/dL (174-498)
--- NOTE | 2023-08-18 01:49 | PC.NURSE ---
Heparin A medium amount of bloody secretions suctioned from patient's mouth; additionally, blood found to be seeping out of old IV site as well as an old injection site on abdomen. Dr. Haley notified of bleeding and orders received to stop heparin as well as complete a DIC profile. See MAR for details.
[2023-08-18 01:55] LABS: D Dimer >= 20.00 ug/mLFEU (0-0.59)
[2023-08-18] MEDS: ipratropium-albuterol 3 mL Neb INHALATION ×6 (03:22→23:44)
[2023-08-18] MEDS: norepinephrine 4 MG/250 ML BAG 60 MG IV ×2 (03:25→07:26)
[2023-08-18 04:48] LABS: ABG PCO2 43.7 mmHg (35-45); ABG PH Result 7.33 (7.35-7.45); Arterial Blood Gas Hematocrit 36.3 % (42-52); Base Excess ABG -3.2 mmol/L (-2.0-2.0); Blood Gas Allen Test Pos; Blood Gas Operator Identificat CAK; Blood Gas Sample Site Brachial, right; Blood Gas Sample Type Arterial; Blood Gas Tidal Volume 0.45; HCO3 ABG 22.8 mmol/L (22-26); Oxygen Device VENT; PO2 ABG 83.9 mmHg (80.0-100.0); PO2 FiO2 Ratio Arterial Blood 0
[2023-08-18 04:58] LABS: Basophils # 0.1 10^3/uL (0.0-0.1); Basophils % 0.4 %; Eosinophils # 0.9 10^3/uL (0.0-0.8); Eosinophils % 5.5 %; Lymphocytes # 0.7 10^3/uL (0.8-4.8); Lymphocytes % 4.5 %; Mean Corpuscular HGB Conc 33.5 g/dL (30-55); Mean Corpuscular Hemoglobin 29.2 pg (27-33); Mean Platelet Volume 11.1 fL (7.4-10.4); Monocytes # 0.8 10^3/uL (0.2-0.9); Monocytes % 5.3 %; Neutrophils # 12.73 10^3/uL (1.8-7.7); Neutrophils % 82.1 %; Nucleated Red Blood Cells % 0.3 %; Platelet Count 302 10^3/cmm (157-399); Red Blood Count 3.91 10^6/uL (3.85-5.65); Red Cell Distribution Width 16.3 % (12.1-15.1); White Blood Count 15.52 10^3/uL (3.29-11.43)
[2023-08-18] MEDS: aspirin 81 mg EC Tablet PO (05:02)
[2023-08-18] MEDS: linezolid premix 600 MG/300 ML PREMIX 300 MG IV ×2 (05:04→17:08)
[2023-08-18 05:17] LABS: INR 1.26 (0.8-1.2)
[2023-08-18 05:24] LABS: Lactate (Lactic Acid level) 1.3 mmol/L (0.5-2.2)
[2023-08-18 05:25] LABS: Alanine Aminotransferase 247 U/L (0-41); Albumin Level 3.8 g/dL (3.5-5.2); Alkaline Phosphatase 105 U/L (40-130); Anion Gap 26.6 (5-19); Aspartate Amino Transferase 113 U/L (0-40); Blood Urea Nitrogen 62 mg/dL (6-20); C Reactive Protein 45.7 mg/L (0.0-4.9); Calcium 7.7 mg/dL (8.5-10.5); Carbon Dioxide 19 mmol/L (22-29); Chloride 85 mmol/L (98-107); Globulin 2.1 g/dL (1.3-4.6); Glucose 215 mg/dL (65-115); Magnesium 2.3 mg/dL (1.7-2.3); Osmolality Calculated 288 mOsm/kg (285-295); Phosphorus 7.4 mg/dL (2.5-4.5); Potassium 3.6 mmol/L (3.5-5.1); Sodium 127 mmol/L (136-145); Total Bilirubin 1.5 mg/dL (0.15-1.2); Total Protein 5.9 g/dL (6.6-8.7)
[2023-08-18 05:29] LABS: NT Pro B Type Natriuretic Pept 7786 pg/mL (0-125); Procalcitonin 5.96 ng/mL (0-0.5)
[2023-08-18 05:47] LABS: Creatine Phosphokinase 854 U/L (39-308)
[2023-08-18] MEDS: chlorhexidine gluconate 4% Btl 118 mL 1 APPLIC TOPICAL (06:01)
--- NOTE | 2023-08-18 07:00 | XRR_ITS ---
PROCEDURE INFORMATION: Exam: XR Chest Exam date and time: 08/18/2023 4:58 AM Age: 58 years old Clinical indication: Prior surgery; Surgery date: 6+ months; Surgery type: Defibrillator; Patient HX: F/u resp failure with covid pneumonia. Intubated with og and left sided central line in place. ; Additional info: SOB TECHNIQUE: Imaging protocol: Radiologic exam of the chest. Views: 1 view. COMPARISON: CR XR chest 1V portable [id number] 08/17/2023 6:54 AM FINDINGS: Tubes, catheters and devices: The patient is intubated. The endotracheal tube tip is seen 3.7 cm above the eloisa. Otherwise tubes and lines are unchanged. Lungs: Increasing bilateral pulmonary infiltrates and effusions are identified right greater than left. Pleural spaces: There is no pneumothorax. Heart/Mediastinum: The heart size is not well assessed. Bones/joints: Unremarkable. XR/XR chest 1V portable [id number] IMPRESSION: Increasing bilateral pulmonary infiltrates and effusions right greater than left.
[2023-08-18 08:00] LABS: Glucose Point of Care 241 mg/dL (70-110)
[2023-08-18] MEDS: insulin lispro 100 unit/1 mL SUBCUT ×4 (08:08→21:41)
[2023-08-18] MEDS: fentaNYL 1,000 MCG/100 ML BAG 10 MCG IV (08:08)
--- NOTE | 2023-08-18 08:49 | P.PN_ITS ---
Subjective 2 Subjective: off sedation Vitals/I&O/Wt Last Vital Signs Temp 98.3 F 08/18/23 04:00 Pulse 72 08/18/23 08:00 Resp 16 08/18/23 08:00 BP 103/52 08/18/23 07:00 Pulse Ox 98 08/18/23 08:00 O2 Del Method Mechanical Ventilation 08/18/23 08:00 FiO2 36 08/18/23 08:00 08/17/23 08/18/23 08/18/23 22:59 06:59 14:59 Intake Total 1506.401 / 2163.221 887.484 / 3050.705 591 / 591 Output Total 3055 / 3055 350 / 3405 Balance -1548.599 / -891.779 537.484 / -354.295 591 / 591 Weight last 48 hrs Weight 129.727 kg Weight 133 kg Weight 129.274 kg Weight 131.6 kg Physical Exam 2 Urinary Catheter Management: Burciaga: Cath Placed During This Visit: yes Reason for Continuing Indwelling Catheter: Accurate Measurement of Urinary Output in Critically Ill Patients Urinary Catheter Date of Insertion: 08/11/23 Urinary Catheter Time of Insertion: 12:38 Data 08/18/23 04:34 08/18/23 04:34 Other Labs: Ca 7.7, phos 7.4, Mg 2.3 CK 854, LFTs continue to improve vanco 50 CXR: Radiologist's impression: Lungs: Increasing bilateral pulmonary infiltrates and effusions are identified right greater than left. Pleural spaces: There is no pneumothorax. Heart/Mediastinum: The heart size is not well assessed. Bones/joints: Unremarkable. ABG Interpretation 1: 08/11/23 08/12/23 08/12/23 16:55 04:10 13:00 ABG pH 7.20 L 7.15 L* 7.16 L* ABG pCO2 66.9 H* 57.6 H 55.5 H ABG pO2 325.0 H 78.6 L 99.1 ABG HCO3 26.3 H 20.0 L 19.9 L ABG O2 Saturation 92.5 96.3 ABG Base Excess -3.5 L -9.9 L -9.4 L 08/13/23 08/14/23 08/15/23 04:15 04:35 04:40 ABG pH 7.21 L 7.33 L 7.33 L ABG pCO2 57.9 H 52.3 H 48.6 H ABG pO2 83.0 65.9 L 59.8 L ABG HCO3 23.1 27.7 H 25.5 ABG O2 Saturation ABG Base Excess -5.5 L 1.1 -0.9 08/16/23 08/17/23 08/18/23 05:00 04:40 04:35 ABG pH 7.34 L 7.32 L 7.33 L ABG pCO2 43.9 45.3 H 43.7 ABG pO2 69.5 L 84.6 83.9 ABG HCO3 23.8 23.2 22.8 ABG O2 Saturation ABG Base Excess -2.1 L -3.1 L -3.2 L Other data: seen via telemedicine with assistance of RN at bedside A&P Assessment and plan (1) Acute renal failure: Qualifiers: Acute renal failure type: unspecified Qualified Code(s): N17.9 - Acute kidney failure, unspecified Plan 1. Acute kidney injury, in the setting of shock, cardiac arrest. Baseline creatinine was normal in November 2022. Tolerated HD yesterday, about 2L UF 2. COVID, multifocal pneumonia, VDRF, oxygenating well on 40% FIO2. Elevated vancomycin level, discontinued 3. Hyponatremia, hypervolemic, improving 4. Metabolic acidosis 5. Hyperphosphatemia: recommend change tube feed to nephro, add phosphate binder 6. History of COPD, coronary artery disease, obesity Plan: HD tomorrow. 4h, 2L UF as BP tolerates. Daily vanco levels Attestations 2 Medical Necessity Statement*: critically ill in ICU Coding Level of Care Code Acute Code for Chg Fwd Diagnoses Acute renal failure, unspecified acute renal failure type N17.9 Acute renal failure type: unspecified
[2023-08-18] MEDS: ticagrelor 90 mg Tablet PO ×2 (09:08→17:08)
[2023-08-18] MEDS: amiodarone 200 mg Tablet 400 MG PO ×2 (09:08→17:08)
[2023-08-18] MEDS: meropenem 500 MG in sodium chloride 0.9% (plus) 50 ML 100 MG IV ×2 (09:08→21:42)
--- NOTE | 2023-08-18 09:29 | PC.NURSE ---
Rounding with Dr. Mcgraw at bedside, verbal order to hold all sedation and tube feed as well as to titrate down on levophed as patient tolerates. Orders followed at 0915, SEE OCT.
[2023-08-18 11:25] LABS: Glucose Point of Care 218 mg/dL (70-110)
[2023-08-18] MEDS: norepinephrine 4 MG/250 ML BAG 45 MG IV (12:05)
[2023-08-18] MEDS: pantoprazole 40 mg SDV IVP (17:08)
[2023-08-18] MEDS: atorvastatin 40 mg Tablet 80 MG PO (17:09)
--- NOTE | 2023-08-18 17:30 | P.PN_ITS ---
Subjective 2 Subjective: - Patient was seen this morning, he is o n Precedex, fentanyl, ? Overnight he had episodes of agitation, ? Will keep him off sedation today, sedation vacation, ? Currently on 45% FiO2, afebrile light, still on 8 of Levophed, had dialysis yesterday, -3 L, ? He does have a pupillary reflex, has a gag reflex, according to nurses he does track at times, does not follow commands, ? Continue to monitor in the afternoon, has a pupil reflex has a gag reflex, does not follow commands, ? Continue sedation vacation throughout the night, if needed we can put him back on Precedex and 25 of fentanyl for agitation, ? Concerns for possible anoxic injury, will watch his mentation tomorrow, consider head CT, neurology consultation, pulmonary consultation -Spoke to patient's mother and father, bhavna coleman them update, biggest concern for me is his neurologic status, concern for possible anoxic brain injury, but he does have sepsis he is on Levophed which is improving, Staph aureus pneumonia, he has gram-positive bacteremia which could be contamination and waiting on the repeat cultures, he was on high-dose pressors that would be my concern for anoxic brain injury, but he did get dialysis yesterday, which would help eliminate some of his uremia, he was on Versed, will have to wait for some time for the Versed to get out of his system, will continue to monitor him closely Vitals/I&O/Wt Last Vital Signs Temp 98.2 F 08/18/23 13:00 Pulse 90 08/18/23 15:15 Resp 14 08/18/23 15:24 BP 108/63 08/18/23 14:00 Pulse Ox 97 08/18/23 15:24 O2 Del Method Mechanical Ventilation 08/18/23 15:15 FiO2 35 08/18/23 15:24 08/18/23 08/18/23 08/18/23 06:59 14:59 22:59 Intake Total 887.484 / 3050.705 1070.363 / 1070.363 56.875 / 1127.238 Output Total 350 / 3405 Balance 537.484 / -731.199 5495.363 / 1070.363 56.875 / 1127.238 Weight last 48 hrs Weight 129.727 kg Weight 133 kg Weight 129.274 kg Physical Exam 2 Const: COMMON NORMALS: no acute distress Resp: COMMON NORMALS: normal respiratory effort, No retractions, No use of accessory muscles and clear to auscultation bilaterally AUSCULTATION: clear to auscultation bilaterally Cardio: COMMON NORMALS: regular rate, regular rhythm, S1 normal heart sound present and S2 normal heart sound present RATE: regular rate RHYTHM: r egular rhythm HEART SOUNDS: S1 normal heart sound present and S2 normal heart sound present GI: COMMON NORMALS: Normal to inspection, nondistended, normoactive bowel sounds present and non-tender Extremity: COMMON NORMALS: no pedal edema Urinary Catheter Management: Burciaga: Cath Placed During This Visit: yes Reason for Continuing Indwelling Catheter: Accurate Measurement of Urinary Output in Critically Ill Patients Urinary Catheter Date of Insertion: 08/11/23 Urinary Catheter Time of Insertion: 12:38 Data 08/18/23 04:34 08/18/23 04:34 Micro: Microbiology 08/16/23 12:40 Blood Culture - Preliminary Blood 08/16/23 12:15 Blood Culture - Preliminary Blood A&P Assessment and plan (1) Acute encephalopathy: (2) Pneumonia due to COVID-19 virus: (3) Multifocal pneumonia: (4) Acute renal failure: Qualifiers: Acute renal failure type: unspecified Qualified Code(s): N17.9 - Acute kidney failure, unspecified (5) Septic shock: (6) Multiorgan failure: (7) Acute hypoxic respiratory failure: (8) V-tach: (9) Shock: (10) NSTEMI (non-ST elevated myocardial infarction): (11) CAPRI (acute kidney injury): (12) 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 2 diabetes mellitus: (13) Morbid obesity: (14) CAD (coronary artery disease): (15) ICD (implantable cardioverter-defibrillator) in place: (16) Sustained ventricular tachycardia: (17) CHF (congestive heart failure): (18) Ischemic cardiomyopathy: (19) Systolic CHF, acute: (20) COPD (chronic obstructive pulmonary disease): (21) Obstructive sleep apnea: (22) Tobacco abuse: (23) Metabolic acidosis: (24) Lactic acidosis: (25) Hyperkalemia: (26) Hyponatremia: (27) Goals of care, counseling/discussion: (28) Staphylococcus aureus pneumonia: (29) Rhabdomyolysis: (30) Shock liver: (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 Likely component of hyponatremia, uremia, sepsis ? Some component related to sedating medications such as Versed, -concerns for anoxic brain injury, ? Will get dialysis today ?continue neurochecks, ? Monitor mentation closely, ? If he continues to be nonresponsive will consider CT of the head, concerns for anoxic injury Ventricular tachycardia ? Status post cardioversion, Versed, fentanyl, ? Continues to have episodes of V. tach, now resolved ? p.o. amiodarone 400 twice daily -Cardiology consulted Hyperglycemia with concern for HHS, increased anion gap 24.7,resolved ? on subcut insulin ? Monitor blood sugars ? Monitor anion gap, ? Monitor potassium Shock liver, resolving ? Likely sec to septic shock ?continue to monitor closely NSTEMI -According to family, coronary angiography done at the [facility], was within normal limits, stents no significant obstruction, no intervention required he also had a pacemaker check about a month ago which was within normal limits -Serial EKGs, starting troponins, telemetry monitoring, ? Aspirin, statin, Brilinta ?cardiac echo ? Completed 48 hours of heparin drip, switch to subcu heparin ?cardiology consulted Acute hypoxic respiratory failure ? Likely secondary to COVID-19 pneumonia, multifocal bacterial pneumonia, Staph aureus pneumonia ? Some component related to systolic CHF, fluid overload ? Plan -Monitor respiratory status closely, ? Continue vancomycin ? Continue meropenem ? Completed remdesivir, -decadron ? Follow blood cultures, sputum cultures ? Subcu heparin drip as above, ? Currently intubated, sedated, minimize tidal volume, FiO2, ? Currently on fentanyl, Versed, Precedex for sedation, ? Daily spontaneous breathing trials, Gram-positive bacteremia, staph lundgensus *possibly contamination, ? Continue vancomycin COVID-19 pneumonia, ? completed remdesivir, ? Continue steroids Multifocal bacterial pneumonia, Staph aureus positive sputum cultures ? As above Septic shock, -COVID-19, dialysis, currently on 9 of levophed ? Currently on Levophed ? Off vasopressin ? off epinephrine drip ? Scheduled albumin ? Follow cultures Acute renal failure ? Likely secondary to sepsis, septic shock, COVID-19 ? Consulted nephrology, ? dialysis catheter placement, -Issues with CRRT machine ? Monitor urine output, lackluster for the last 24-48 hrs. ? s/p Dialysis yesterday ? Plan on dialysis today Metabolic acidosis ? Likely secondary to sepsis, septic shock, acute renal failure, next Lactic acidosis ? Likely sec to sepsis, Hyperkalemia, ? Status post D50, insulin, calcium gluconate Type 2 diabetes mellitus, blood sugars remain uncontrolled, in the high 400s start insulin drip COPD, no active wheezing, Full code ? Protonix for GI prophylaxis, ? Heparin drip for DVT prophylaxis, ? Prognosis guarded, status stable - Patient was seen this morning, he is on Precedex, fentanyl, ? Overnight he had episodes of agitation, ? Will keep him off sedation today, sedation vacation, ? Currently on 45% FiO2, afebrile light, still on 8 of Levophed, had dialysis yesterday, -3 L, ? He does have a pupillary reflex, has a gag reflex, according to nurses he does track at times, does not follow commands, ? Continue to monitor in the afternoon, has a pupil reflex has a gag reflex, does not follow commands, ? Continue sedation vacation throughout the night, if needed we can put him back on Precedex and 25 of fentanyl for agitation, ? Concerns for possible anoxic injury, will watch his mentation tomorrow, consider head CT, neurology consultation, pulmonary consultation -Spoke to patient's mother and father, gave them update, biggest concern for me is his neurologic status, concern for possible anoxic brain injury, but he does have sepsis he is on Levophed which is improving, Staph aureus pneumonia, he has gram-positive bacteremia which could be contamination and waiting on the repeat cultures, he was on high-dose pressors that would be my concern for anoxic brain injury, but he did get dialysis yesterday, which would help eliminate some of his uremia, he was on Versed, will have to wait for some time for the Versed to get out of his system, will continue to monitor him closely Attestations 2 Medical Necessity Statement*: Patient requires hospitalization for shock, respiratory failure, acute encephalopathy, acute renal failure Coding Level of Care Code Critical Care >/= 30 minutes Critical care time (in minutes): 45 The high probability of a clinically significant, sudden or life threatening deterioration, as referenced in this documentation, required my full and direct attention, intervention and personal management. The critical care time shown is in addition to time spent performing any reported separately billable procedures and includes the following: [x] Data and vital sign review and interpretation [x ] Patient assessment, examination and intervention [x] Medication orders and management [x] Patient/Family updates as able [x] Care Coordination and Documentation. Diagnoses Acute encephalopathy G93.40 Pneumonia due to COVID-19 virus U07.1; J12.82 Multifocal pneumonia J18.9 Acute renal failure, unspecified acute renal failure type N17.9 Acute renal failure type: unspecified Septic shock A41.9; R65.21 Multiorgan failure Acute hypoxic respiratory failure J96.01 V-tach I47.20 Shock R57.9 NSTEMI (non-ST elevated myocardial infarction) I21.4 CAPRI (acute kidney injury) N17.9 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 2 diabetes mellitus E11.22; N18.2 Morbid obesity E66.01 Coronary artery disease involving [place] coronary artery of [place] heart without angina pectoris I25.10 ICD (implantable cardioverter-defibrillator) in place Z95.810 Sustained ventricular tachycardia I47.20 Acute on chronic systolic congestive heart failure I50.9 Ischemic cardiomyopathy I25.5 Systolic CHF, acute I50.21 COPD (chronic obstructive pulmonary disease) J44.9 Obstructive sleep apnea G47.33 Tobacco abuse Z72.0 Metabolic acidosis E87.20 Lactic acidosis E87.20 Hyperkalemia E87.5 Hyponatremia E87.1 Goals of care, counseling/discussion Z71.89 Staphylococcus aureus pneumonia J15.211 Rhabdomyolysis M62.82 Shock liver K72.00 HHS (hypothenar hammer syndrome) I73.89 Gram-positive bacteremia R78.81 Uremia N19
--- NOTE | 2023-08-18 17:33 | PC.NURSE ---
Nephro tube feed started per dr. beauchamp telephone order read back, 10cc/hr.
[2023-08-18 17:43] LABS: Glucose Point of Care 232 mg/dL (70-110)
[2023-08-18] MEDS: norepinephrine 4 MG/250 ML BAG 22.5 MG IV (18:04)
[2023-08-18 21:15] LABS: Glucose Point of Care 178 mg/dL (70-110)
[2023-08-19] VITALS (66 sets, daily range): BP systolic 73–125; BP diastolic 46–68; PULSE 82–127; RESP 15–25; TEMP 36.8–37.3; O2SAT 92–100; BMI 47.2
[2023-08-19] MEDS: chlorhexidine gluconate 4% Btl 118 mL 1 APPLIC TOPICAL (03:14)
[2023-08-19] MEDS: ipratropium-albuterol 3 mL Neb INHALATION ×6 (04:12→23:35)
[2023-08-19 04:29] LABS: ABG PCO2 37.9 mmHg (35-45); ABG PH Result 7.39 (7.35-7.45); Arterial Blood Gas Hematocrit 34.6 % (42-52); Base Excess ABG -2.1 mmol/L (-2.0-2.0); Blood Gas Allen Test Pos; Blood Gas Operator Identificat MONRO; Blood Gas Sample Site Radial, right; Blood Gas Sample Type Arterial; Blood Gas Tidal Volume 0.45; HCO3 ABG 22.7 mmol/L (22-26); Oxygen Device VENT; PO2 ABG 80.4 mmHg (80.0-100.0); PO2 FiO2 Ratio Arterial Blood 0
[2023-08-19 04:34] LABS: Basophils % 0.3 %; Eosinophils # 1.2 10^3/uL (0.0-0.8); Eosinophils % 7.8 %; Hematocrit 30.9 % (37-53); Lymphocytes # 0.4 10^3/uL (0.8-4.8); Lymphocytes % 2.6 %; Mean Corpuscular Hemoglobin 29.9 pg (27-33); Mean Corpuscular Volume 85.6 fl (82-101); Mean Platelet Volume 11.5 fL (7.4-10.4); Monocytes # 0.8 10^3/uL (0.2-0.9); Monocytes % 5.2 %; Neutrophils # 12.19 10^3/uL (1.8-7.7); Neutrophils % 82.5 %; Nucleated Red Blood Cells # 0.1 /100WBC; Nucleated Red Blood Cells % 0.4 %; Platelet Count 265 10^3/cmm (157-399); Red Blood Count 3.61 10^6/uL (3.85-5.65); Red Cell Distribution Width 15.9 % (12.1-15.1); White Blood Count 14.77 10^3/uL (3.29-11.43)
[2023-08-19 04:51] LABS: Alanine Aminotransferase 168 U/L (0-41); Albumin Level 3.5 g/dL (3.5-5.2); Alkaline Phosphatase 91 U/L (40-130); Anion Gap 25.1 (5-19); Aspartate Amino Transferase 91 U/L (0-40); Blood Urea Nitrogen 70 mg/dL (6-20); C Reactive Protein 84.7 mg/L (0.0-4.9); Calcium 7.7 mg/dL (8.5-10.5); Carbon Dioxide 21 mmol/L (22-29); Chloride 84 mmol/L (98-107); Globulin 1.8 g/dL (1.3-4.6); Glomerular Filtration Rate 12.8 mL/min (90-130); Glucose 188 mg/dL (65-115); Magnesium 2.2 mg/dL (1.7-2.3); Osmolality Calculated 287 mOsm/kg (285-295); Potassium 4.1 mmol/L (3.5-5.1); Sodium 126 mmol/L (136-145); Total Bilirubin 1.5 mg/dL (0.15-1.2); Total Protein 5.3 g/dL (6.6-8.7)
[2023-08-19 04:57] LABS: Lactate (Lactic Acid level) 1.3 mmol/L (0.5-2.2)
[2023-08-19 04:59] LABS: INR 1.22 (0.8-1.2); NT Pro B Type Natriuretic Pept 7854 pg/mL (0-125)
[2023-08-19 05:07] LABS: Phosphorus 7.8 mg/dL (2.5-4.5)
[2023-08-19 05:29] LABS: Creatine Phosphokinase 548 U/L (39-308)
[2023-08-19] MEDS: aspirin 81 mg EC Tablet PO (06:00)
[2023-08-19] MEDS: linezolid premix 600 MG/300 ML PREMIX 300 MG IV ×2 (06:00→17:54)
[2023-08-19] MEDS: norepinephrine 4 MG/250 ML BAG 18.75 MG IV (06:01)
[2023-08-19 07:15] LABS: Vancomycin Random 32.3 ug/mL (20.0-40.0)
[2023-08-19 07:34] LABS: Glucose Point of Care 237 mg/dL (70-110)
--- NOTE | 2023-08-19 08:00 | PC.NURSE ---
SCDs off this am
--- NOTE | 2023-08-19 08:20 | PC.NURSE ---
Sternal Rub done to assess pt's neurological status. Pt Frowned, his eyes flew open and it appeared he mouthed why are you doing that?' around the ETT.
--- NOTE | 2023-08-19 09:44 | ECG_ITS ---
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 Measurements Intervals [place] Rate: 127 P: 0 IL: 0 QRS: 94 QRSD: 53 T: 90 QT: 363 QTc: 529 Interpretive Statements ATRIAL FIBRILLATION WITH RAPID VENTRICULAR RESPONSE BORDERLINE RIGHT AXIS DEVIATION [QRS AXIS > 90] LOW QRS VOLTAGE IN PRECORDIAL LEADS [QRS DEFLECTION < 1.0 mV IN CHEST LEADS] POSSIBLE ANTERIOR MYOCARDIAL INFARCTION [30 ms Q WAVE IN V3/V4, OR R < 0.2 mV IN V4], OF INDETERMINATE AGE Compared to ECG 08/11/2023 13:33:37 Low QRS voltage now present Left-axis deviation no longer present Right bundle-branch block no longer present Myocardial infarct finding still present Electronically Signed On 08-19-2023 10:49:30 GENERAL ENGINEERING TEACHER by Alverto Qureshi M.D. [id number]
[2023-08-19] MEDS: insulin lispro 100 unit/1 mL SUBCUT ×4 (09:54→21:54)
[2023-08-19] MEDS: calcium chloride 10% Syr 10 mL 2 GM IVP (09:54)
[2023-08-19] MEDS: ticagrelor 90 mg Tablet PO ×2 (09:59→17:52)
[2023-08-19] MEDS: amiodarone 200 mg Tablet 400 MG PO (09:59)
[2023-08-19] MEDS: lidocaine drip 2,000 MG/500 ML PREMIX 15 MG IV (10:03)
[2023-08-19] MEDS: magnesium sulfate premix 2 GM/50 ML PIGGYBACK IV (10:05)
--- NOTE | 2023-08-19 10:10 | PC.NURSE ---
Pt getting HD and his heart rhythm is irritable: Rate 120-160's. VT/a-fib RVR. EKG done. Dr Tirado, on the unit, gave orders for 2 gms Magnesium IV and 2 gm Calcium Glucanate IVP, both administered. HD terminated. Levophed gtt increased and Albumin admin for hypotension during HD. Dr Mcgraw, now on unit, ordrs for LIdocaine gtt received and started at 1mg/min.
--- NOTE | 2023-08-19 10:15 | CT_ITS ---
WS: [id number] CT HEAD TECHNIQUE: Noncontrast CT of the head obtained from the skullbase to the vertex. CLINICAL INFORMATION: ams COMPARISON: CT 2019 DLP: 1140.[address] scans at [facility] use at least one of these dose optimization techniques: automated e xposure control; mA and/or kV adjustment per patient size (includes targeted exams where dose is matc hed to clinical indication); or iterative reconstruction. FINDINGS: No evidence of intracranial hemorrhage or mass effect. Ventricular system and basal cisterns are castro nt. Mild small vessel changes with mild parenchymal volume loss. No extra-axial fluid collections. No evidence of mass or mass effect. Normal diaz-white differentiation. Diffuse opacification of the paranasal sinuses compatible with sinusitis. Mastoid air cells are well aerated. Incidental slightly low-lying cerebellar tonsils unchanged. IMPRESSION: 1. No evidence of intracranial hemorrhage or mass effect. 2. Mild small vessel changes with mild parenchymal volume loss. 3. Diffuse paranasal sinusitis with air-fluid levels. 4. No acute intracranial findings.
--- NOTE | 2023-08-19 10:16 | PC.NUTR ---
Addendum entered by Myles Britt 08/19/23 11:06: -Plans to initiate enteral nutrition 08/19 via NG following UPDATED RD recs below -Nepro 1.8 @ 25 ml/hr x24hrs -30ml ProSource bolus q6 with FWF -FWF 150 ml q6 Original Note: Initiate enteral nutrition via NG following RD recs below -Jevity 1.2 @ 35 ml/hr x24hrs -30ml ProSource bolus q6 with FWF -FWF 150 ml q6
--- NOTE | 2023-08-19 10:25 | PC.NURSE ---
Dr Mcgraw, in room, verbal ordered loading dose of Lidocaine. 1mg/kg =133mg. Loading dosed started and admin from bag already scanned and hung
--- NOTE | 2023-08-19 10:54 | P.PN_ITS ---
Subjective 2 Subjective: HD started but discontinued after 1 hour due to tachyarrhythmias, V. tach and A- fib with RVR Started on lidocaine drip Currently on 30% FiO2, intubated Medications: Reviewed: Yes Vitals/I&O/Wt Last Vital Signs Temp 99.2 F 08/19/23 09:06 Pulse 97 08/19/23 07:30 Resp 19 H 08/19/23 10:07 BP 98/52 08/19/23 06:00 Pulse Ox 95 08/19/23 10:07 O2 Del Method Mechanical Ventilation 08/19/23 07:20 FiO2 35 08/19/23 10:07 08/18/23 08/19/23 08/19/23 22:59 06:59 14:59 Intake Total 600.750 / 1671.113 343.625 / 2014.738 395.312 / 395.312 Output Total 750 / 750 600 / 1350 Balance -149.250 / 921.113 -256.375 / 664.738 395.312 / 395.312 Weight last 48 hrs Weight 128.73 kg Weight 129.727 kg Weight 133 kg Physical Exam 2 Narrative: Intubated sedated Urinary Catheter Management: Burciaga: Cath Placed During This Visit: yes Reason for Continuing Indwelling Catheter: Accurate Measurement of Urinary Output in Critically Ill Patients Urinary Catheter Date of Insertion: 08/11/23 Urinary Catheter Time of Insertion: 12:38 Data 08/19/23 03:50 08/19/23 03:50 Micro: Microbiology 08/16/23 12:40 Blood Culture - Preliminary Blood 08/16/23 12:15 Blood Culture - Preliminary Blood A&P Assessment and plan (1) Acute renal failure: Qualifiers: Acute renal failure type: unspecified Qualified Code(s): N17.9 - Acute kidney failure, unspecified Plan 1. Acute kidney injury, in the setting of shock, cardiac arrest. Baseline creatinine was normal in November 2022. Tolerated HD yesterday, about 2L UF 2. COVID, multifocal pneumonia, VDRF, oxygenating well on 40% FIO2. Elevated vancomycin level, discontinued 3. Hyponatremia, hypervolemic, improving 4. Metabolic acidosis 5. Hyperphosphatemia: recommend change tube feed to nephro, add phosphate binder 6. History of COPD, coronary artery disease, obesity Plan: Did not tolerate HD today due to tachyarrhythmias, urine output reasonable, on 35% FiO2, will assess daily for HD needs Attestations 2 Medical Necessity Statement*: Per medicine team Coding Level of Care Code Acute Code for Chg Fwd Diagnoses Acute renal failure, unspecified acute renal failure type N17.9 Acute renal failure type: unspecified
[2023-08-19 11:15] LABS: Glucose Point of Care 182 mg/dL (70-110)
--- NOTE | 2023-08-19 11:55 | PC.SOCIAL ---
IMM Update pg 2 of IMM not updated @ this time as patient is currently intubated and not anticipated to DC. Copy left @ BS. Family is not present @ this time. Copy dated, initialed and placed in chart.
--- NOTE | 2023-08-19 12:20 | PC.NURSE ---
Dr Mcgraw, now on the unit. orders reiceved for Amiodarone gtt to started and Lidocaine gtt to stop.
--- NOTE | 2023-08-19 12:30 | PC.NURSE ---
Sternal Rub done again to assess neurological status. Pt Frowned and opened his eyes again. Did not track or follow anyone with his eyes. His did squeeze his right hand on command, the squeeze was barely perceptible.
[2023-08-19] MEDS: amiodarone 150 MG/100 ML PREMIX 400 MG IV (12:31)
[2023-08-19] MEDS: meropenem 500 MG in sodium chloride 0.9% (plus) 50 ML 100 MG IV ×2 (12:33→21:53)
--- NOTE | 2023-08-19 12:53 | P.CONIM_ITS ---
Providers/Reason For Consult 2 Consulting Physician/Specialty*: Raza Fox MD neurology and epilepsy Reason for Consult*: Encephalopathy Attending Physician: Willi Mcgraw MD Primary Care Provider: Karla Ryan MD History of Present Illness History of Present Illness Param Tejada is a 58 year old male with a history of obesity, hypothyroidism. The patient presented to [facility] emergency room secondary to respiratory difficulty for 8 days. Patient was reported to experience respiratory and cardiac arrest with ventricular tachycardia requiring defibrillation. Patient was also reported to have staff infection with sepsis. Patient admitted to the intensive care unit and is currently on the ventilator and IV antibiotics as well as medications for ventricular arrhythmia. Neurology consult was obtained secondary to decreased level of consciousness/metabolic encephalopathy. Past medical history: Obesity Hypothyroidism Coronary artery disease Ventricular arrhythmia with intra plantable cardioverter defibrillator Drug allergies: Sulfonamide antibiotics which resulted in anaphylaxis Home medications: Albuterol 90 mcg per accusation 2 puffs 4 times a day as needed Aspirin 81 mg p.o. daily Lipitor 80 mg p.o. daily Empagliflozin 25 mg p.o. daily Lasix 20 mg p.o. twice daily Neurontin 600 mg p.o. every 8 hours as needed for pain NovoLog insulin Synthroid 50 mcg p.o. daily Metformin 500 mg p.o. twice daily Losartan 25 mg p.o. daily Methocarbamol 500 mg p.o. as instructed Metolazone 2.5 mg p.o. every other day Metoprolol ER 25 mg tablets 1/2 tablet p.o. daily Sublingual nitroglycerin 0.4 mg as needed Spironolactone 25 mg p.o. daily Trazodone 50 to 100 mg p.o. 3 times daily Habits: Unknown Review of Systems 2 General: Reports: ROS unobtainable due to endotracheal tube Medications/Allergies Home Medications Medication Instructions Recorded Confirmed Last Taken Type acetaminophen 500 mg tablet 1,000 mg PO TID PRN Pain 11/29/20 08/13/23 Unknown History aspirin 81 mg tablet,delayed 81 mg PO QAM 11/29/20 08/13/23 01/31/22 09:00 History release atorvastatin 80 mg tablet 80 mg PO QPM 11/29/20 08/13/23 01/30/22 History ipratropium 0.5 mg-albuterol 3 mg 3 ml inhalation QID PRN Shortness 11/29/20 08/13/23 Unknown History (2.5 mg base)/3 mL nebulization Of Breath soln methocarbamol 500 mg tablet See Rx Instructions .Route .COMPLEX 11/29/20 08/13/23 01/30/22 History nitroglycerin 0.4 mg sublingual 0.4 mg sublingual Q5M PRN Chest 11/29/20 08/13/23 Unknown History tablet Pain ticagrelor 90 mg tablet (Brilinta) 90 mg PO BID 11/29/20 08/13/23 01/31/22 09:00 History tiotropium bromide 2.5 2 puff inhalation DAILY 11/29/20 08/13/23 08/04/21 History mcg/actuation mist for inhalation (Spiriva Respimat) tramadol 50 mg tablet 50 - 100 mg PO TID PRN Pain 11/29/20 08/13/23 Unknown History albuterol sulfate 90 mcg/actuation 2 puff inhalation QID PRN 12/12/21 08/13/23 Unknown History aerosol inhaler Shortness Of Breath fluticasone 250 mcg-salmeterol 50 1 inh inhalation BID 01/25/22 08/13/23 Unknown History mcg/dose blistr powdr for inhalation (Wixela Inhub) naloxone 4 mg/actuation nasal spray 4 mg intranasal Q2M PRN overdose 01/31/22 08/13/23 Unknown History ketoconazole 2 % topical cream 1 applic topical BID #60 grams 04/24/22 08/13/23 Unknown Rx miconazole nitrate 2 % topical 1 applic topical DAILY #71 grams 04/24/22 08/13/23 Unknown Rx powder (Zeasorb AF) metoprolol succinate 25 mg 12.5 mg (1/2 x 25 mg) PO DAILY #45 05/18/22 08/13/23 Unknown Rx tablet,extended release 24 hr tabs potassium chloride 20 mEq 40 meq PO DAILY 05/18/22 08/13/23 Unknown History tablet,extended release blood-glucose meter,continuous #1 ea 08/23/22 08/11/23 Unknown Rx (Dexcom G6 [employer]) blood-glucose transmitter (Dexcom #3 ea 08/23/22 08/11/23 Unknown Rx G6 Transmitter device) empagliflozin 25 mg tablet 25 mg PO QAM #90 tabs 08/23/22 08/13/23 Unknown Rx (Jardiance) blood-glucose sensor (Dexcom G6 #9 ea 04/19/23 08/11/23 Unknown Rx Sensor device) clotrimazole 1 % topical cream 1 applic topical BID 08/13/23 08/13/23 Unknown History diclofenac sodium 1 % topical gel See Rx Instructions .Route 08/13/23 08/13/23 Unknown History .COMPLEX PRN Pain fluconazole 200 mg tablet See Rx Instructions .Route .COMPLEX 08/13/23 08/13/23 Unknown History furosemide 20 mg tablet 20 mg PO BID 08/13/23 08/13/23 Unknown History gabapentin 300 mg capsule 600 mg PO Q8H PRN Pain 08/13/23 08/13/23 Unknown History insulin aspart U-100 100 unit/mL See Rx Instructions .Route .COMPLEX 08/13/23 08/13/23 Unknown History (3 mL) subcutaneous pen (Novolog FlexPen U-100 Insulin aspart) levothyroxine 50 mcg tablet 50 mcg PO DAILY 08/13/23 08/13/23 Unknown History lidocaine 5 % topical patch See Rx Instructions .Route .COMPLEX 08/13/23 08/13/23 Unknown History losartan 50 mg tablet 25 mg PO DAILY 08/13/23 08/13/23 Unknown History metformin 500 mg tablet,extended 500 mg PO BID 08/13/23 08/13/23 Unknown History release 24 hr metolazone 2.5 mg tablet 2.5 mg PO EVERY OTHER DAY 08/13/23 08/13/23 Unknown History spironolactone 25 mg tablet 25 mg PO DAILY 08/13/23 08/13/23 Unknown History Allergies Allergy/AdvReac Type Severity Reaction Status Date / Time Sulfa (Sulfonamide Allergy Severe ALGY-Anaphy Verified 08/11/23 11:31 Antibiotics) laxis Current Medications Generic Name Dose Route Start Last Admin Trade Name Freq PRN Reason Stop Dose Admin Albuterol/Ipratropium 3 ml 08/11/23 16:05 08/19/23 11:56 Ipratropium-Albuterol 3 Ml Neb INHALATION 3 ml Q4H.RESPIRATORY VIRA Administration Aspirin 81 mg 08/12/23 06:00 08/19/23 06:00 Aspirin 81 Mg Ec Tablet PO 81 mg QAM VIRA Administration Atorvastatin Calcium 80 mg 08/11/23 18:00 08/18/23 17:09 Atorvastatin 40 Mg Tablet PO 80 mg QPM VIRA Administration Chlorhexidine Gluconate 1 applic 08/15/23 01:00 08/19/23 03:14 Chlorhexidine Gluconate 4% Btl 118 Ml TOPICAL 1 applic Q24H VIRA Administration Fentanyl 1,000 mcg in 100 mls @ 0 mls/hr 08/11/23 12:30 08/18/23 09:15 Sublimaze IV 0 mcg/hr .Q0M VIRA 0 mls/hr Titration Protocol Per Protocol norepinephrine 4 mg in 250 mls @ 0 mls/hr 08/11/23 12:30 08/19/23 10:18 Levophed IV 9 mcg/min .Q0M VIRA 33.75 mls/hr Titration Protocol Per Protocol Propofol 1,000 mg in 100 mls @ 0 mls/hr 08/11/23 13:30 08/18/23 09:15 Diprivan IV 0 mcg/kg/min .Q0M VIRA 0 mls/hr Titration Protocol Per Protocol Dexmedetomidine/Sodium Chloride 400 mcg in 100 mls @ 0 mls/hr 08/11/23 14:15 08/18/23 09:15 Precedex IV 0 mcg/kg/hr .Q0M VIRA 0 mls/hr Titration Protocol Per Protocol Albumin Human 12.5 gm in 50 mls @ 60 mls/hr 08/16/23 05:43 08/18/23 07:31 Albumin IV Infused PRN PRN Infusion Hypotension and/or symptomatic Meropenem 500 mg/ Sodium 50 mls @ 100 mls/hr 08/18/23 10:00 08/19/23 12:33 Chloride IV 100 mls/hr Q12H VIRA Administration Protocol Linezolid 600 mg in 300 mls @ 300 mls/hr 08/18/23 06:00 08/19/23 09:00 Zyvox Premix IV Infused Q12H VIRA Infusion Protocol Amiodarone HCl/Dextrose 360 mg in 200 mls @ 0 mls/hr 08/19/23 11:04 08/19/23 12:45 Nexterone IV 1 mg/min .Q0M VIRA 33.33 mls/hr Administration Protocol Per Protocol Insulin Human Lispro 0 unit 08/16/23 18:00 08/19/23 12:30 Insulin Lispro 100 Unit/1 Ml SUBCUT 6 unit WM&BEDTIME VIRA Administration Protocol Pantoprazole Sodium 40 mg 08/11/23 16:05 08/18/23 17:08 Pantoprazole 40 Mg Sdv IVP 40 mg Q24H VIRA Administration Ticagrelor 90 mg 08/11/23 18:00 08/19/23 09:59 Ticagrelor 90 Mg Tablet PO 90 mg BID VIRA Administration PFSH Acute 2 PFSH: Medical History Renal calculus Hypokalemia Hyponatremia Ischemic cardiomyopathy Personal history of nicotine dependence Hypertension Diabetes CHF (congestive heart failure) CAD (coronary artery disease) Hypoxia 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 Mother No problems noted. Denies family history of CAD (coronary artery disease) Social History Smoking and tobacco/nicotine status: former use of tobacco/nicotine Alcohol intake: never Substance/Drug Use: never Marital status: Single Current occupational status: disabled Do you think of yourself as: Straight/Heterosexual Vitals/I&O/Wt Last Vital Signs Temp 98.4 F 08/19/23 12:30 Pulse 104 H 08/19/23 12:30 Resp 23 H 08/19/23 12:30 BP 99/62 08/19/23 12:30 Pulse Ox 96 08/19/23 12:30 O2 Del Method Mechanical Ventilation 08/19/23 12:30 FiO2 35 08/19/23 12:30 08/18/23 08/19/23 08/19/23 22:59 06:59 14:59 Intake Total 600.750 / 1671.113 343.625 / 458.812 / 458.812 Output Total 750 / 750 600 / 1350 Balance -149.250 / 921.113 -256.375 / 664.738 458.812 / 458.812 Weight last 48 hrs Weight 283 lb 12.8 oz Weight 286 lb Weight 293 lb 3.437 oz Physical Exam 2 Narrative: The patient is currently intubated on sedation. The patient is breathing spontaneously over the ventilator. Patient does not follow commands but does open eyes and slightly moves arms and legs to pressure applied to his nailbeds bilateral. Head atraumatic. Neck supple. Cranial nerves II through XII difficult to fully assess secondary to intubation but no obvious facial weakness was observed. Patient does have corneal reflexes bilaterally. Pupils 3 to 4 mm and reactive to light. Motor testing difficult to assess secondary to decreased level consciousness but patient slightly moves open withdraws extremities to painful stimuli and open eyes to painful stimuli. Sensory examination intact to touch. Throat could not be visualized secondary to intubation. Lungs revealed no obvious wheezing. Heart regular rhythm with irregular rate. Extremities reveal some mild swelling in the lower extremities bilaterally. There was no cyanosis. Urinary Catheter Management: [place]: Cath Placed During This Visit: yes Reason for Continuing Indwelling Catheter: Accurate Measurement of Urinary Output in Critically Ill Patients Urinary Catheter Date of Insertion: 08/11/23 Urinary Catheter Time of Insertion: 12:38 Data 08/19/23 03:50 08/19/23 03:50 Micro: Microbiology 08/16/23 12:40 Blood Culture - Preliminary Blood 08/16/23 12:15 Blood Culture - Preliminary Blood A&P Assessment and plan (1) Encephalopathy acute: Impression: 1. Clinical history and examination suggestive of acute encephalopathic process 2. History of metabolic acidosis 3. Wide-complex ventricular tachycardia requiring defibrillation and antiarrhythmic medication (amiodarone) 4. Respiratory failure requiring ventilator support 5. Staph sepsis requiring IV antibiotics Plan: 1. Agree with current treatment 2. Agree with repeating noncontrast head CT 3. Will consider performing surface EEG recording for 42 minutes to further assess for an encephalopathic process if patient mental status is not improved Consult Attestations 2 Medical Necessity Statement: Patient evaluated by neurology for encephalopathy/decreased level consciousness following cardiac arrest requiring defibrillation for ventricular tachycardia and intubation for respiratory failure Coding Level of Care Code 91209 Diagnoses Encephalopathy acute G93.40
--- NOTE | 2023-08-19 13:00 | USCV_ITS ---
Param Tejada Age: 58 Gender: M : 1965 Exam Date: 08/19/2023 15:00 Ordering Phys: Technologist: Luis M Bonilla [place] [facility] [place]: ? ef BP: 102 / 65 HR: Rhythm: Sinus Technical Quality: Technically difficult study MEASUREMENTS (Male / Female) Normal Values 2D ECHO LV Diastolic Diameter PLAX 4.2 cm 4.2 - 5.9 / 3.9 - 5.3 cm LV Systolic Diameter PLAX 3.3 cm IVS Diastolic Thickness 1.5 cm 0.6 - 1.0 / 0.6 - 0.9 cm IVS Systolic Thickness 2.1 cm LVPW Diastolic Thickness 1.5 cm 0.6 - 1.0 / 0.6 - 0.9 cm LVPW Systolic Thickness 1.7 cm LVOT Diameter 2.5 cm LV Ejection Fraction 2D Teich 24.9 % LV Ejection Fraction MOD 2C 36.1 % LV Ejection Fraction 2C AL 36.0 % LA Diameter 4.1 cm IVC Diameter 2.4 cm M-MODE Aortic Annulus Diameter 3.3 cm LA Ao Ratio MM 1.6 MV E Point Septal Separation 2.3 cm DOPPLER AV Peak Velocity 187.0 cm/s LVOT Peak Velocity 89.0 cm/s AV Area Cont Eq vti 3.1 cm squared AV Area Cont Eq pk 2.3 cm squared MV Area PHT 6.9 cm squared Mitral E to A Ratio 0.8 MV E' Velocity 99.0 cm/s TR Peak Velocity 264.0 cm/s TR Peak Gradient 27.9 mmHg TV Peak E Velocity 115.0 cm/s Right Atrial Pressure 3.0 mmHg Pulmonary Artery Systolic Pressu 30.9 mmHg RV Acceleration Time 0.1 s FINDINGS Left Ventricle Diffuse hypokinesia of the left ventricular ejection fraction of 36%. (Echo contrast - Optison was used to delineate the endocardium and to estimate the LV ejection fraction). The study is still of suboptimal quality Right Ventricle The right ventricle could not be visualized well Right Atrium Could not be visualized well Left Atrium Possibly of normal size Mitral Valve Morphology could not be delineated well Aortic Valve Morphology could not be delineated Tricuspid Valve Was not visualized Pulmonic Valve Pulmonic valve not well visualized. Pericardium No pericardial effusion. Aorta Normal aortic annulus size. IVC Inferior vena cava not visualized. CONCLUSIONS Technically very limited study. (Echo contrast - Optison was used to delineate the endocardium and to estimate the LV ejection fraction) Diffuse hypokinesia with left ventricular ejection fraction of 36% Possibly normal left arterial size No pericardial effusion Comparison with the previous study is difficult because of the difference in the technical quality. Dr Juan Carlos Peña MD [facility] (Electronically Signed) Final Date: 19 August 2023 19:33 S
[2023-08-19 13:26] LABS: Troponin(5th) Baseline 52 ng/L (0-15)
--- NOTE | 2023-08-19 13:50 | PC.NURSE ---
Heart rhythm has settled down Rate 80 s.
--- NOTE | 2023-08-19 14:07 | ECG_ITS ---
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 Measurements Intervals [place] Rate: 96 P: 64 TN: 154 QRS: 127 QRSD: 69 T: 85 QT: 310 QTc: 394 Interpretive Statements SINUS RHYTHM WITH OCCASIONAL SUPRAVENTRICULAR PREMATURE COMPLEXES POSSIBLE RIGHT ATRIAL ENLARGEMENT [0.25mV P WAVE] LEFT ATRIAL ENLARGEMENT [-0.15mV P WAVE IN V1/V2] MARKED RIGHT AXIS DEVIATION [QRS AXIS > 100] LOW QRS VOLTAGE IN PRECORDIAL LEADS [QRS DEFLECTION < 1.0 mV IN CHEST LEADS] ANTERIOR MYOCARDIAL INFARCTION [40+ ms Q WAVE AND/OR ST/T ABNORMALITY IN V3/V4], OF INDETERMINATE AGE Compared to ECG 08/19/2023 09:44:05 Atrial abnormality now present ST (T wave) deviation now present Atrial fibrillation no longer present Myocardial infarct finding still present Electronically Signed On 08-19-2023 15:29:27 CUST[employer]ER SERVICE SPECIALIST by Alverto Qureshi M.D. [email or web address]
--- NOTE | 2023-08-19 14:31 | PM.CONSULT ---
Providers/Reason For Consult Consulting Physician/Specialty*: Mike Ferrer MD FCCP/pulmonary critical care Reason for Consult*: To help with extubation Requesting Physician: Willi Mcgraw MD Attending Physician: Willi Mcgraw MD Primary Care Provider: Karla Ryan MD History of Present Illness History of Present Illness Param Tejada is a 58 year old male admitted to hospital on 08/11/2023 for septic shock secondary to pneumonia. CTA showed multifocal consolidation. COVID PCR positive. Sputum cultures positive for staph. He was found to have V. tach-cardioverted into sinus tachycardia-placed on amiodarone drip and due to worsening respiratory status intubated in the ER, sedated, started on mechanical ventilation and transferred to ICU. He was requiring 3 pressors in ICU. Renal function continued to worsen and developed severe metabolic acidosis and hyperkalemia. Nephrology consulted and patient was started on CRRT. He has significant past medical history of diabetes, obesity, coronary artery disease status post PCI in the past ischemic cardiomyopathy, COPD sleep apnea. Echocardiogram 08/19/2022 technically very limited study. Diffuse hypokinesis with LV ejection fraction 36%. Cardiology consulted and-reported less likely acute coronary event given recent cath with no significant stenosis. Recommended to continue heparin drip. During the hospital course-patient FiO2 requirements came down to 45%. He has been off sedation for 48 hours does not follow commands. He has improving urine output. Today went into V. tach after 1 hour on hemodialysis. Patient evaluated by neurology for concerns of anoxic encephalopathy. Recommended to repeat noncontrast CT-which did not reveal any acute event. Plan is to perform surface EEG. Pulmonary critical care consulted requested to help with extubation Patient seen at bedside-intubated off sedation-withdraws to deep sternal rub but no meaningful responses Cardiac monitoring showing A-fib RVR-today morning he was started on hemodialysis and the patient went into V. tach and so it was held He started to make urine He was started on amiodarone drip Review of Systems General: Reports: 10 or more systems reviewed and unremarkable except in HPI and below Medications/Allergies Home Medications Medication Instructions Recorded Confirmed Last Taken Type acetaminophen 500 mg tablet 1,000 mg PO TID PRN Pain 11/29/20 08/13/23 Unknown History aspirin 81 mg tablet,delayed 81 mg PO QAM 11/29/20 08/13/2301/31/22 09:00 History release atorvastatin 80 mg tablet 80 mg PO QPM 11/29/20 08/13/23 01/30/22 History ipratropium 0.5 mg-albuterol 3 mg 3 ml inhalation QID PRN Shortness 11/29/20 08/13/23 Unknown History (2.5 mg base)/3 mL nebulization Of Breath soln methocarbamol 500 mg tablet See Rx Instructions .Route .COMPLEX 11/29/20 08/13/23 01/30/22 History nitroglycerin 0.4 mg sublingual 0.4 mg sublingual Q5M PRN Chest 11/29/20 08/13/23 Unknown History tablet Pain ticagrelor 90 mg tablet (Brilinta) 90 mg PO BID 11/29/20 08/13/23 01/31/22 09:00 History tiotropium bromide 2.5 2 puff inhalation DAILY 11/29/20 08/13/23 08/04/21 History mcg/actuation mist for inhalation (Spiriva Respimat) tramadol 50 mg tablet 50 - 100 mg PO TID PRN Pain 11/29/20 08/13/23 Unknown History albuterol sulfate 90 mcg/actuation 2 puff inhalation QID PRN 12/12/21 08/13/23 Unknown History aerosol inhaler Shortness Of Breath fluticasone 250 mcg-salmeterol 50 1 inh inhalation BID 01/25/22 08/13/23 Unknown History mcg/dose blistr powdr for inhalation (Wixela Inhub) naloxone 4 mg/actuation nasal spray 4 mg intranasal Q2M PRN overdose 01/31/22 08/13/23 Unknown History ketoconazole 2 % topical cream 1 applic topical BID #60 grams 04/24/22 08/13/23 Unknown Rx miconazole nitrate 2 % topical 1 applic topical DAILY #71 grams 04/24/22 08/13/23 Unknown Rx powder (Zeasorb AF) metoprolol succinate 25 mg 12.5 mg (1/2 x 25 mg) PO DAILY #45 05/18/22 08/13/23 Unknown Rx tablet,extended release 24 hr tabs potassium chloride 20 mEq 40 meq PO DAILY 05/18/22 08/13/23 Unknown History tablet,extended release blood-glucose meter,continuous #1 ea 08/23/22 08/11/23 Unknown Rx (Dexcom G6 Metal Numerical Control Programmer) blood-glucose transmitter (Dexcom #3 ea 08/23/22 08/11/23 Unknown Rx G6 Transmitter device) empagliflozin 25 mg tablet 25 mg PO QAM #90 tabs 08/23/22 08/13/23 Unknown Rx (Jardiance) blood-glucose sensor (Dexcom G6 #9 ea 04/19/23 08/11/23 Unknown Rx Sensor device) clotrimazole 1 % topical cream 1 applic topical BID 08/13/23 08/13/23 Unknown History diclofenac sodium 1 % topical gel See Rx Instructions .Route 08/13/23 08/13/23 Unknown History .COMPLEX PRN Pain fluconazole 200 mg tablet See Rx Instructions .Route .COMPLEX 08/13/23 08/13/23 Unknown History furosemide 20 mg tablet 20 mg PO BID 08/13/23 08/13/23 Unknown History gabapentin 300 mg capsule 600 mg PO Q8H PRN Pain 08/13/23 08/13/23 Unknown History insulin aspart U-100 100 unit/mL See Rx Instructions .Route .COMPLEX 08/13/23 08/13/23 Unknown History (3 mL) subcutaneous pen (Novolog FlexPen U-100 Insulin aspart) levothyroxine 50 mcg tablet 50 mcg PO DAILY 08/13/23 08/13/23 Unknown History lidocaine 5 % topical patch See Rx Instructions .Route .COMPLEX 08/13/23 08/13/23 Unknown History losartan 50 mg tablet 25 mg PO DAILY 08/13/23 08/13/23 Unknown History metformin 500 mg tablet,extended 500 mg PO BID 08/13/23 08/13/23 Unknown History release 24 hr metolazone 2.5 mg tablet 2.5 mg PO EVERY OTHER DAY 08/13/23 08/13/23 Unknown History spironolactone 25 mg tablet 25 mg PO DAILY 08/13/23 08/13/23 Unknown History Allergies Allergy/AdvReac Type Severity Reaction Status Date / Time Sulfa (Sulfonamide Allergy Severe ALGY-Anaphy Verified 08/11/23 11:31 Antibiotics) laxis Current Medications Generic Name Dose Route Start Last Admin Trade Name Freq PRN Reason Stop Dose Admin Albuterol/Ipratropium 3 ml 08/11/23 16:05 08/19/23 11:56 Ipratropium-Albuterol 3 Ml Neb INHALATION 3 ml Q4H.RESPIRATORY VIRA Administration Aspirin 81 mg 08/12/23 06:00 08/19/23 06:00 Aspirin 81 Mg Ec Tablet PO 81 mg QAM VIRA Administration Atorvastatin Calcium 80 mg 08/11/23 18:00 08/18/23 17:09 Atorvastatin 40 Mg Tablet PO 80 mg QPM VIRA Administration Chlorhexidine Gluconate 1 applic 08/15/23 01:00 08/19/23 03:14 Chlorhexidine Gluconate 4% Btl 118 Ml TOPICAL 1 applic Q24H VIRA Administration Fentanyl 1,000 mcg in 100 mls @ 0 mls/hr 08/11/23 12:30 08/18/23 09:15 Sublimaze IV 0 mcg/hr .Q0M VIRA 0 mls/hr Titration Protocol Per Protocol norepinephrine 4 mg in 250 mls @ 0 mls/hr 08/11/23 12:30 08/19/23 10:18 Levophed IV 9 mcg/min .Q0M VIRA 33.75 mls/hr Titration Protocol Per Protocol Propofol 1,000 mg in 100 mls @ 0 mls/hr 08/11/23 13:30 08/18/23 09:15 Diprivan IV 0 mcg/kg/min .Q0M VIRA 0 mls/hr Titration Protocol Per Protocol Dexmedetomidine/Sodium Chloride 400 mcg in 100 mls @ 0 mls/hr 08/11/23 14:15 08/18/23 09:15 Precedex IV 0 mcg/kg/hr .Q0M VIRA 0 mls/hr Titration Protocol Per Protocol Albumin Human 12.5 gm in 50 mls @ 60 mls/hr 08/16/23 05:43 08/18/23 07:31 Albumin IV Infused PRN PRN Infusion Hypotension and/or symptomatic Meropenem 500 mg/ Sodium 50 mls @ 100 mls/hr 08/18/23 10:00 08/19/23 12:33 Chloride IV 100 mls/hr Q12H VIRA Administration Protocol Linezolid 600 mg in 300 mls @ 300 mls/hr 08/18/23 06:00 08/19/23 09:00 Zyvox Premix IV Infused Q12H VIRA Infusion Protocol Amiodarone HCl/Dextrose 360 mg in 200 mls @ 0 mls/hr 08/19/23 11:04 08/19/23 12:45 Nexterone IV 1 mg/min .Q0M VIRA 33.33 mls/hr Administration Protocol Per Protocol Insulin Human Lispro 0 unit 08/16/23 18:00 08/19/23 12:30 Insulin Lispro 100 Unit/1 Ml SUBCUT 6 unit WM&BEDTIME VIRA Administration Protocol Pantoprazole Sodium 40 mg 08/11/23 16:05 08/18/23 17:08 Pantoprazole 40 Mg Sdv IVP 40 mg Q24H VIRA Administration Ticagrelor 90 mg 08/11/23 18:00 08/19/23 09:59 Ticagrelor 90 Mg Tablet PO 90 mg BID VIRA Administration PFSH Acute PFSH: Medical History Renal calculus Hypokalemia Hyponatremia Ischemic cardiomyopathy Personal history of nicotine dependence Hypertension Diabetes CHF (congestive heart failure) CAD (coronary artery disease) Hypoxia 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 2 diabetes mellitus Insulin dependent diabetes mellitus ICD (implantable cardioverter-defibrillator) in place Morbid obesity Obstructive sleep apnea Chronic hypercapnic respiratory failure Tobacco abuse COPD (chronic obstructive pulmonary disease) Ischemic cardiomyopathy Hyperlipidemia Hypertension ST elevation myocardial infarction (STEMI) of inferior wall Surgical History S/P knee replacement History of left knee replacement History of cardiac defibrillator placement History of coronary artery stent placement -hx of CAD with inferior wall NE s/p RCA stent, LAD stent Family History Father No problems noted. Mother No problems noted. Denies family history of CAD (coronary artery disease) Social History Smoking and tobacco/nicotine status: former use of tobacco/nicotine Alcohol intake: never Substance/Drug Use: never Marital status: Single Current occupational status: disabled Do you think of yourself as: Straight/Heterosexual Vitals/I&O/Wt Last Vital Signs Temp 98.4 F 08/19/23 12:30 Pulse 104 H 08/19/23 12:30 Resp 20 H 08/19/23 14:18 BP 99/62 08/19/23 12:30 Pulse Ox 97 08/19/23 14:18 O2 Del Method Mechanical Ventilation 08/19/23 12:30 FiO2 35 08/19/23 14:18 08/18/23 08/19/23 08/19/23 22:59 06:59 14:59 Intake Total 600.750 / 1671.113 343.625 / 2014.738 458.812 / 458.812 Output Total 750 / 750 600 / 1350 Balance -149.250 / 921.113 -256.375 / 664.738 458.812 / 458.812 Weight last 48 hrs Weight 283 lb 12.8 oz Weight 286 lb Weight 293 lb 3.437 oz Physical Exam Narrative: PHYSICAL EXAM: General: lying in bed, sedated and intubated. HEENT:NCAT, PERRLA, EOMI Neck: Supple Lungs: Clear, Heart: s1/s2, RRR Abd: soft, NT, ND, BS + Normoactive Extremities: No edema PARA EDUCATOR: sedated and limited PARA EDUCATOR exam possible. SKIN: no rash Urinary Catheter Management: [place]: Cath Placed During This Visit: yes Reason for Continuing Indwelling Catheter: Accurate Measurement of Urinary Output in Critically Ill Patients Urinary Catheter Date of Insertion: 08/11/23 Urinary Catheter Time of Insertion: 12:38 Data 08/22/23 04:28 08/22/23 04:28 Other Labs: Radiology Impressions Chest CTA 08/11/23 12:49 IMPRESSION: 1. No pulmonary embolism. 2. Multifocal bilateral consolidations suspicious for multifocal pneumonia. 3. NG tube with its tip at the gastroesophageal junction, consider advancing by at least 5 centimeters. Venous Duplex 08/11/23 16:05 IMPRESSION: No evidence of deep vein thrombosis. Abdomen Ultrasound 08/13/23 08:29 IMPRESSION: 1. Hepatomegaly with fatty infiltration of the liver. 2. No gallstones are appreciated. Gallbladder wall thickening. This is likely related to abdominal ascites. Laboratory Results WBC 15.00 10^3/uL (3.29-11.43) H 08/22/23 04:28 Corrected WBC Cancelled 08/12/23 04:50 RBC 3.36 10^6/uL (3.85-5.65) L 08/22/23 04:28 Hgb 10.00 g/dL (11.27-16.99) L 08/22/23 04:28 Hct 29.6 % (37-53) L 08/22/23 04:28 MCV 88.1 fl (82-101) 08/22/23 04:28 MCH 29.8 pg (27-33) 08/22/23 04:28 MCHC 33.8 g/dL (30-55) 08/22/23 04:28 RDW 16.4 % (12.1-15.1) H 08/22/23 04:28 Plt Count 266 10^3/cmm (157-399) 08/22/23 04:28 MPV 10.9 fL (7.4-10.4) H 08/22/23 04:28 Gran % Cancelled 08/12/23 04:50 Neut % (Auto) 82.3 % 08/22/23 04:28 Lymph % (Auto) 2.3 % 08/22/23 04:28 [place] % (Auto) 4.3 % 08/22/23 04:28 Eos % (Auto) 9.5 % 08/22/23 04:28 Baso % (Auto) 0.5 % 08/22/23 04:28 Neut # (Auto) 12.36 10^3/uL (1.8-7.7) H 08/22/23 04:28 Lymph # (Auto) 0.4 10^3/uL (0.8-4.8) L 08/22/23 04:28 [place] # (Auto) 0.6 10^3/uL (0.2-0.9) 08/22/23 04:28 Eos # (Auto) 1.4 10^3/uL (0.0-0.8) H 08/22/23 04:28 Baso # (Auto) 0.1 10^3/uL (0.0-0.1) 08/22/23 04:28 Absolute Gran (auto) Cancelled 08/12/23 04:50 Nucleated RBC % (auto) 0 % 08/22/23 04:28 Nucleated RBCs # 0.0 /100WBC 08/22/23 04:28 PT 15.90 SECONDS (12.1-14.9) H 08/22/23 04:28 INR 1.23 (0.8-1.2) H 08/22/23 04:28 APTT 54.0 SECONDS (23.9-36.7) H 08/18/23 01:07 Fibrinogen 286 mg/dL (174-498) 08/18/23 01:07 Fibrin Degrad Products 80 mcg/mL (LESS THAN 5) H 08/18/23 01:23 D-Dimer >= 20.00 ug/mLFEU (0-0.59) H 08/18/23 01:07 Specimen Type Arterial 08/22/23 04:09 Sample Site Radial, left 08/22/23 04:09 ABG pH 7.48 (7.35-7.45) H 08/22/23 04:09 ABG pCO2 37.5 mmHg (35-45) 08/22/23 04:09 ABG pO2 117.0 mmHg (80.0-100.0) H 08/22/23 04:09 ABG PO2/FiO2 Ratio 0 08/22/23 04:09 ABG HCO3 28.0 mmol/L (22-26) H 08/22/23 04:09 ABG O2 Saturation 96.3 08/12/23 13:00 ABG Base Excess 4.3 mmol/L (-2.0-2.0) H 08/22/23 04:09 Jj Test Pos 08/22/23 04:09 A-a O2 Gradient 34.6 mmHg (5-10) H 08/12/23 13:00 Hematocrit 32.0 % (42-52) L 08/22/23 04:09 Hgb O2 Saturation 95.1 % (95-100) 08/12/23 13:00 Carboxyhemoglobin 0.7 %THgb (0.4-20.1) 08/12/23 13:00 Methemoglobin 0.5 % (0.4-1.5) 08/12/23 13:00 Total Hemoglobin 14.6 g/dL (14-18) 08/12/23 13:00 Sodium 123.0 mmol/L (131-143) L 08/12/23 13:00 Potassium 5.3 mmol/L (3.5-5.0) H 08/12/23 13:00 Glucose 385.0 mg/dL (70-115) H 08/12/23 13:00 Ionized Calcium 1.0 mmol/L (1.1-1.4) L 08/12/23 13:00 O2 Delivery Device Bipap 08/22/23 04:09 FiO2 30.0 % 08/22/23 04:09 Tidal Volume 0.45 08/21/23 04:52 PEEP 8.0 cmH20 08/21/23 04:52 CPAP 10.0 cmH20 08/15/23 04:40 Welder Apprentice Arc ID John 08/22/23 04:09 Sodium 132 mmol/L (136-145) L 08/22/23 04:28 Potassium 2.7 mmol/L (3.5-5.1) L* 08/22/23 04:28 Chloride 93 mmol/L (98-107) L 08/22/23 04:28 Carbon Dioxide 25 mmol/L (22-29) 08/22/23 04:28 Anion Gap 16.7 (5-19) 08/22/23 04:28 BUN 54 mg/dL (6-20) H 08/22/23 04:28 Creatinine 2.0 mg/dL (0.7-1.2) H 08/22/23 04:28 GFR Calculation 34.4 mL/min (90-130) L 08/22/23 04:28 Glucose 230 mg/dL (65-115) H 08/22/23 04:28 POC Glucose 325 mg/dL (70-110) H 08/22/23 11:28 Estimat Average Glucose 183 08/11/23 12:39 Hemoglobin A1c 8.0 % (4.0-6.0) H 08/11/23 12:39 Calculated Osmolality 296 mOsm/kg (285-295) H 08/22/23 04:28 Lactic Acid 3.1 mmol/L (0.5-2.2) H 08/11/23 15:10 Lactic Acid (Sepsis) 2.1 mmol/L (0.5-2.2) 08/11/23 00:50 Lactate 1.5 mmol/L (0.5-2.2) 08/22/23 04:28 Calcium 8.5 mg/dL (8.5-10.5) 08/22/23 04:28 Phosphorus 3.2 mg/dL (2.5-4.5) 08/22/23 04:28 Magnesium 2.1 mg/dL (1.7-2.3) 08/22/23 04:28 Total Bilirubin 1.7 mg/dL (0.15-1.2) H 08/22/23 04:28 Direct Bilirubin 3.20 mg/dL (0.00-0.30) H 08/13/23 05:43 GGT 58 U/L (8-61) 08/13/23 05:43 AST 56 U/L (0-40) H 08/22/23 04:28 ALT 58 U/L (0-41) H 08/22/23 04:28 Alkaline Phosphatase 87 U/L (40-130) 08/22/23 04:28 Creatine Kinase 81 U/L (39-308) 08/22/23 04:28 Troponin T Baseline 52 ng/L (0-15) H 08/19/23 12:53 Troponin T 120 Minute 54.74 ng/L (0-15) H 08/19/23 15:41 Delta Troponin T 2.74 ABS# (0-10) 08/19/23 15:41 Troponin T Hi Sens 6Hr 47.01 ng/L (0-15) H 08/19/23 19:33 Troponin T Hi Sens 6Hr Delta -4.99 ng/L (0-12) L 08/19/23 19:33 C-Reactive Protein 109.1 mg/L (0.0-4.9) H 08/22/23 04:28 NT-Pro-B Natriuret Pep 6285 pg/mL (0-125) H 08/22/23 04:28 Total Protein 5.9 g/dL (6.6-8.7) L 08/22/23 04:28 Albumin 2.8 g/dL (3.5-5.2) L 08/22/23 04:28 Globulin 3.1 g/dL (1.3-4.6) 08/22/23 04:28 Triglycerides 91 mg/dL (0-150) 08/11/23 12:39 Cholesterol 132 mg/dL (0-200) 08/11/23 12:39 LDL Cholesterol, Calc 70 mg/dL (50-129) 08/11/23 12:39 HDL Cholesterol 44 mg/dL (60-100) L 08/11/23 12:39 LDL/HDL Ratio 1.59 RATIO (0.00-3.22) 08/11/23 12:39 Cholesterol/HDL Ratio 3.00 mg/dL (1.0-5.00) 08/11/23 12:39 Amylase 161 U/L (28-100) H 08/13/23 05:43 Lipase 175 U/L (13-60) H 08/13/23 05:43 Procalcitonin 1.18 ng/mL (0-0.5) H 08/22/23 04:28 TSH 6.84 uIU/mL (0.27-4.20) H 08/11/23 12:39 Urine Color Brown (Yellow) A 08/20/23 18:07 Urine Appearance Cloudy (CLEAR) A 08/20/23 18:07 Urine pH 5 (5-7) 08/20/23 18:07 Ur Specific [place] 1.015 (1.005-1.030) 08/20/23 18:07 Urine Protein 1+ (Negative) H 08/20/23 18:07 Urine Glucose (UA) 4+ (Normal) H 08/20/23 18:07 Urine Ketones 1+ (Negative) H 08/20/23 18:07 Urine Blood 3+ (Negative) H 08/20/23 18:07 Urine Nitrate Negative (Negative) 08/20/23 18:07 Urine Bilirubin Neg (Negative) 08/20/23 18:07 Urine Urobilinogen Norm mg/dL (Negative) 08/20/23 18:07 Ur Leukocyte Esterase Trace (Negative) H 08/20/23 18:07 Urine RBC >100 /hpf (0-2) H 08/20/23 18:07 Urine WBC 5-10 /hpf (0-5) H 08/20/23 18:07 Ur Squamous Epith Cells 0-4 /hpf (0-5) H 08/20/23 18:07 Amorphous Sediment 2+ /hpf 08/20/23 18:07 Urine Bacteria 1+ /hpf (NONE) H 08/20/23 18:07 Hyaline Casts 0-4 /lpf H 08/20/23 18:07 Fine Granular Casts 0-4 /lpf H 08/20/23 18:07 Urine Mucus 2+ /hpf 08/20/23 18:07 Nasal Influ A H1 2008 PCR Cancelled 08/11/23 05:22 Random Vancomycin 32.3 ug/mL (20.0-40.0) 08/19/23 06:35 Serum Ketones Negative (Negative) 08/11/23 12:39 Adenovirus (PCR) Not detected (NOT DETECT) 08/20/23 18:18 C. pneumoniae DNA (PCR) Not detected (NOT DETECT) 08/20/23 18:18 Coronavirus 229E (PCR) Not detected (NOT DETECT) 08/20/23 18:18 Hep Bs Antigen Non-reactive (Nonreactive) 08/12/23 17:40 Hep Bs Antibody 22.4 (11.5-1000) 08/12/23 17:40 Hep B Core Total Ab Non-reactive (Nonreactive) 08/12/23 17:40 Hepatitis C Antibody Non-reactive (Nonreactive) 08/12/23 17:40 Human Metapneumovir PCR Not detected (NOT DETECT) 08/20/23 18:18 Influenza A (H1) PCR Not detected (NOT DETECT) 08/20/23 18:18 Influ A (H1/09) PCR Not detected (NOT DETECT) 08/20/23 18:18 Influenza A (H3) PCR Not detected (NOT DETECT) 08/20/23 18:18 Influenza Type A Ag negative (Negative) 08/12/23 06:00 Influenza Type A (PCR) Not detected (NOT DETECT) 08/20/23 18:18 Influenza Type B Ag negative (Negative) 08/12/23 06:00 Influenza Type B (PCR) Not detected (NOT DETECT) 08/20/23 18:18 M. pneumoniae (PCR) Not detected (NOT DETECT) 08/20/23 18:18 Parainfluenza 1 (PCR) Not detected (NOT DETECT) 08/20/23 18:18 Parainfluenza 2 (PCR) Not detected (NOT DETECT) 08/20/23 18:18 Parainfluenza 3 (PCR) Not detected (NOT DETECT) 08/20/23 18:18 Parainfluenza 4 (PCR) Not detected (NOT DETECT) 08/20/23 18:18 RSV Type A (PCR) Not detected (NOT DETECT) 08/20/23 18:18 RSV Type B (PCR) Not detected (NOT DETECT) 08/20/23 18:18 Entero/Rhino (PCR) Not detected (NOT DETECT) 08/20/23 18:18 SARS-CoV-2 (PCR) Detected (NOT DETECT) A 08/20/23 18:18 SARS-CoV-2 Ag (Rapid) positive (Negative) H 08/12/23 06:00 Micro: Microbiology 08/16/23 12:40 Blood Culture - Preliminary Blood 08/16/23 12:15 Blood Culture - Preliminary Blood A&P Assessment and plan (1) Encephalopathy acute: (2) Rhabdomyolysis: (3) CHF (congestive heart failure): (4) Ischemic cardiomyopathy: (5) Systolic CHF, acute: (6) Implantable cardioverter-defibrillator (ICD) in situ: (7) Diabetes: (8) 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 2 diabetes mellitus: (9) Acute renal failure: Qualifiers: Acute renal failure type: unspecified Qualified Code(s): N17.9 - Acute kidney failure, unspecified (10) COPD (chronic obstructive pulmonary disease): (11) Acute respiratory failure: Qualifiers: Respiratory failure complication: hypoxia Qualified Code(s): J96.01 - Acute respiratory failure with hypoxia (12) Staphylococcus aureus pneumonia: (13) Multifocal pneumonia: (14) Pneumonia due to COVID-19 virus: Plan # Admitted for multifocal pneumonia-sputum cultures positive for Staph aureus # COVID PCR positive-acute hypoxic respiratory failure #? Ischemic encephalopathy given cardiac arrest #? Uremic encephalopathy -Currently on minimal settings on vent -He is on vancomycin, meropenem -Completed remdesivir and Decadron. -Off sedation for 48 hours-minimal response to deep stimuli -CT head did not show any acute changes -Will continue awakening trial for 24 to 48 hours to give some time for all the sedatives to wear off # CAPRI on CKD in patient with underlying diabetes -Currently he is on hemodialysis -He started to make urine -Will monitor urine output/electrolytes and continue hemodialysis when feasible # Underlying ischemic heart disease and an implantable ICD # A-fib RVR -On amiodarone drip -He is on aspirin/Lipitor/Brilinta/Eliquis # Diabetes mellitus -Uncontrolled sugars-he is on scale coverage will consider starting insulin Lantus -Monitor sugars closely ICU CHECKLIST: Problem list updated Verbal orders reviewed and signed Code Status: Limited Disposition: ICU Critically ill: Yes MD discussed with: Hospitalist, RN, RT Analgesia: N/A Glycemic Control: Insulin scale coverage Nutrition: TPN Restraint Renewal (within 24 hrs): Yes Ulcer Prophylaxis: PPI Chemical Thromboprophylaxis: Prophylaxis: Eliquis Mechanical Thromboprophylaxis: SCD Consult Attestations Medical Necessity Statement: Still intubated-very close monitoring in ICU Time Spent in Patient Care: Greater than 35 minutes (>than 50% of time spent in counselling and/or direct pt care on unit). Critical Care Time: This patient has a high probability of clinically significant, sudden or life threatening deterioration of the patient's (pulmonary, cardiac, renal, neurological) systems required my full, direct attention, the highest level of physician preparedness for urgent intervention and personal management. I managed/supervised life or organ supporting interventions that required frequent physician assessment. I devoted my full attention in the ICU to the direct care of this patient for the period of time indicated above. Time I spent with family or surrogate(s) is included only if the patient was incapable of providing necessary information or participating in decision making. This time includes the following services provided: Telemetry review Mechanical Ventilation Hemodynamic interpretation, assessment and management Review and interpretation of CXR Review and interpretation of lab values Review and interpretation of microbiologic data and culture results Review of medications and administration Review and interpretation of Nutrition requirements and management Discussion of management with other consultants and services Clinical update to family members [x] Data and vital sign review and interpretation [x] Patient assessment, examination and intervention [x] Documentation [x] Medication orders and management Critical Care Time (min): 78 Coding Level of Care Code Acute Code for [facility] Fwd Diagnoses Encephalopathy acute G93.40 Rhabdomyolysis M62.82 Acute on chronic systolic congestive heart failure I50.9 Ischemic cardiomyopathy I25.5 Systolic CHF, acute I50.21 Implantable cardioverter-defibrillator (ICD) in situ Z95.810 Diabetes E11.9 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 2 diabetes mellitus E11.22; N18.2 Acute renal failure, unspecified acute renal failure type N17.9 Acute renal failure type: unspecified COPD (chronic obstructive pulmonary disease) J44.9 Acute respiratory failure J96.01 Respiratory failure complication: hypoxia Staphylococcus aureus pneumonia J15.211 Multifocal pneumonia J18.9 Pneumonia due to COVID-19 virus U07.1; J12.82 Time Spent (min) 78
[2023-08-19] MEDS: perflutren protein-a microsphr 0.22 mg/mL SDV 3 mL IV (15:26)
[2023-08-19] MEDS: norepinephrine 4 MG/250 ML BAG 33.75 MG IV (16:00)
[2023-08-19] MEDS: pantoprazole 40 mg SDV IVP (16:00)
[2023-08-19 16:10] LABS: Troponin 5 2HR 54.74 ng/L (0-15); Troponin 5 2HR Delta 2.74 ABS# (0-10)
--- NOTE | 2023-08-19 16:16 | P.PN_ITS ---
Subjective 2 Subjective: Patient intubated. There was concern about his rhythm. He has afib with RVR and underlying bundle branch block. Vitals/I&O/Wt Last Vital Signs Temp 98.4 F 08/19/23 12:30 Pulse 110 H 08/19/23 15:16 Resp 22 H 08/19/23 15:51 BP 99/62 08/19/23 12:30 Pulse Ox 96 08/19/23 15:51 O2 Del Method Mechanical Ventilation 08/19/23 15:07 FiO2 35 08/19/23 15:51 08/19/23 08/19/23 08/19/23 06:59 14:59 22:59 Intake Total 343.625 / 2014.738 658.812 / 658.812 159.938 / 818.750 Output Total 600 / 1350 Balance -256.375 / 664.738 658.812 / 658.812 159.938 / 818.750 Weight last 48 hrs Weight 283 lb 12.8 oz Weight 286 lb Weight 293 lb 3.437 oz Physical Exam 2 Narrative: GENERAL: Intubated and sedated NECK: No jugular vein distension. [] HEENT: No cyanosis. No icterus. No pallor. [] HEART: Regular S1 and S2. No murmur, rub or gallop. [] LUNGS: Clear to auscultate bilaterally. [] CENTRAL NERVOUS SYSTEM: Grossly nonfocal. [] EXTREMITIES: Lower extremities with 1+ edema bilaterally. Urinary Catheter Management: Burciaga: Cath Placed During This Visit: yes Reason for Continuing Indwelling Catheter: Accurate Measurement of Urinary Output in Critically Ill Patients Urinary Catheter Date of Insertion: 08/11/23 Urinary Catheter Time of Insertion: 12:38 Data 08/29/23 04:12 08/29/23 04:12 A&P Assessment and plan (1) CAD (coronary artery disease): (2) Ischemic cardiomyopathy: (3) ICD (implantable cardioverter-defibrillator) in place: (4) Hypertension: Qualifiers: Hypertension type: essential hypertension Qualified Code(s): I10 - Essential (primary) hypertension (5) Shock: (6) Septic shock: Plan On review of patient's rhythm, he is not in ventricular tachycardia. He is in A-fib with RVR with underlying bundle branch block. Amiodarone drip. Thank you for involving us with care of this patient. Please call with questions Attestations 2 Medical Necessity Statement*: Care expected to cross 2 midnights. Coding Level of Care Code Acute Code for Chg Fwd Diagnoses Coronary artery disease involving [place] coronary artery of [place] heart without angina pectoris I25.10 Ischemic cardiomyopathy I25.5 ICD (implantable cardioverter-defibrillator) in place Z95.810 Essential hypertension I10 Hypertension type: essential hypertension Shock R57.9 Septic shock A41.9; R65.21
[2023-08-19 17:00] LABS: Glucose Point of Care 186 mg/dL (70-110)
[2023-08-19] MEDS: atorvastatin 40 mg Tablet 80 MG PO (17:52)
--- NOTE | 2023-08-19 18:11 | PM.PN ---
Subjective Subjective: - Patient was seen earlier this morning, currently on 45% FiO2 ? He has a pupillary reflex he has not gag reflex, he opens his eyes to sternal rub, he withdraws from pain, ? Sedation has been off for the last 48 hours -the last time he had Versed was over 96 hours ago ? 1350 urine output ? Patient had dialysis about an hour into dialysis patient developed episodes of V. tach with low blood pressures, he was on 6 of Levophed, was placed on a lidocaine drip, ? Reexamine rhythm seems more like atrial fibrillation then V. tach, switched over to amiodarone drip, EXTR ?reexamine on amiodarone drip, heart rates are well-controlled, spoke to cardiology agreed with amiodarone drip, will continue for now ? Repeat echocardiogram ?spoke to neurology, as patient is less responsive, concerns for anoxic brain injury, CT head ordered EEG ordered, spoke to neurology, -next I spoke to pulmonary critical care -I had extensive discussion with patient's family, discussed patient's concerns for patient being less responsive, he has his reflexes intact, there is good pupillary reflex, gag reflex, withdraws from pain, but does not track, does not respond to his name will do CT of the head, EEG, consult neurology, concerns for anoxic brain injury, ultimately decision will be up to family in terms of giving him time versus terminally extubating him, when I discussed tracheostomy and PEG tube placement with patient's family told me that the stoma Param would want, and they would not want to put him through a tracheostomy and a PEG tube placement, if there was any significant anoxic injury or concerns for irreversible neurologic injury they would not want to keep him on artificial life support however they do want to give him some time and see what some the images and EEG and specialist input will help in the decision making Vitals/I&O/Wt Last Vital Signs Temp 98.7 F 08/19/23 17:21 Pulse 110 H 08/19/23 15:16 Resp 20 H 08/19/23 17:31 BP 99/62 08/19/23 12:30 Pulse Ox 95 08/19/23 17:31 O2 Del Method Mechanical Ventilation 08/19/23 15:07 FiO2 35 08/19/23 17:31 01/08/24 01/08/24 01/08/24 06:59 14:59 22:59 Intake Total 343.625 / 2014.738 658.812 / 658.812 184.688 / 843.500 Output Total 600 / 1350 650 / 650 Balance -256.375 / 664.738 658.812 / 658.812 -465.312 / 193.500 Weight last 48 hrs Weight 128.73 kg Weight 129.727 kg Weight 133 kg Physical Exam Const: COMMON NORMALS: no acute distress Resp: COMMON NORMALS: normal respiratory effort, No retractions, No use of accessory muscles and clear to auscultation bilaterally AUSCULTATION: clear to auscultation bilaterally Cardio: COMMON NORMALS: regular rate, regular rhythm, S1 normal heart sound present and S2 normal heart sound present RATE: regular rate RHYTHM: regular rhythm HEART SOUNDS: S1 normal heart sound present and S2 normal heart sound present GI: COMMON NORMALS: Normal to inspection, nondistended, normoactive bowel sounds present and non-tender Extremity: COMMON NORMALS: no pedal edema Urinary Catheter Management: Burciaga: Cath Placed During This Visit: yes Reason for Continuing Indwelling Catheter: Accurate Measurement of Urinary Output in Critically Ill Patients Urinary Catheter Date of Insertion: 08/11/23 Urinary Catheter Time of Insertion: 12:38 Data 08/19/23 03:50 08/19/23 03:50 A&P Assessment and plan (1) Acute encephalopathy: (2) Pneumonia due to COVID-19 virus: (3) Multifocal pneumonia: (4) Acute renal failure: Qualifiers: Acute renal failure type: unspecified Qualified Code(s): N17.9 - Acute kidney failure, unspecified (5) Septic shock: (6) Multiorgan failure: (7) Acute hypoxic respiratory failure: (8) V-tach: (9) Shock: (10) NSTEMI (non-ST elevated myocardial infarction): (11) CAPRI (acute kidney injury): (12) 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 2 diabetes mellitus: (13) Morbid obesity: (14) CAD (coronary artery disease): (15) ICD (implantable cardioverter-defibrillator) in place: (16) Sustained ventricular tachycardia: (17) CHF (congestive heart failure): (18) Ischemic cardiomyopathy: (19) Systolic CHF, acute: (20) COPD (chronic obstructive pulmonary disease): (21) Obstructive sleep apnea: (22) Tobacco abuse: (23) Metabolic acidosis: (24) Lactic acidosis: (25) Hyperkalemia: (26) Hyponatremia: (27) Goals of care, counseling/discussion: (28) Staphylococcus aureus pneumonia: (29) Rhabdomyolysis: (30) Shock liver: (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 Likely component of hyponatremia, uremia, sepsis ? Some component related to sedating medications such as Versed, -concerns for anoxic brain injury, ?continue neurochecks, ? Monitor mentation closely, ? CT of the head oredered, concerns for anoxic injury -EEG -consult neurology Ventricular tachycardia ? Status post cardioversion, Versed, fentanyl, -Cardiology consulted A-fib with RVR -Seen on telemetry -On amiodarone drip Hyperglycemia with concern for HHS, increased anion gap 24.7,resolved ? on subcut insulin ? Monitor blood sugars ? Monitor anion gap, ? Monitor potassium Shock liver, resolving ? Likely sec to septic shock ?continue to monitor closely NSTEMI -According to family, coronary angiography done at the [facility], was within normal limits, stents no significant obstruction, no intervention required he also had a pacemaker check about a month ago which was within normal limits -Serial EKGs, starting troponins, telemetry monitoring, ? Aspirin, statin, Brilinta ?cardiac echo ? Completed 48 hours of heparin drip, switch to subcu heparin ?cardiology consulted Acute hypoxic respiratory failure ? Likely secondary to COVID-19 pneumonia, multifocal bacterial pneumonia, Staph aureus pneumonia ? Some component related to systolic CHF, fluid overload ? Plan -Monitor respiratory status closely, ? Continue vancomycin ? Continue meropenem ? Completed remdesivir, -decadron ? Follow blood cultures, sputum cultures ? Subcu heparin drip as above, ? Currently intubated, sedated, minimize tidal volume, FiO2, ? Currently on fentanyl, Versed, Precedex for sedation, ? Daily spontaneous breathing trials, Gram-positive bacteremia, staph lundgensus ? Continue Zyvox -Repeat blood cultures pending COVID-19 pneumonia, ? completed remdesivir, ? Continue steroids Multifocal bacterial pneumonia, Staph aureus positive sputum cultures ? As above Septic shock, -COVID-19, dialysis, currently on 9 of levophed ? Currently on Levophed ? Off vasopressin ? off epinephrine drip ? Scheduled albumin ? Follow cultures Acute renal failure ? Likely secondary to sepsis, septic shock, COVID-19 ? Consulted nephrology, ? dialysis catheter placement, -Issues with CRRT machine ? Monitor urine output, lackluster for the last 24-48 hrs. ? s/p Dialysis yesterday ? Plan on dialysis today Metabolic acidosis ? Likely secondary to sepsis, septic shock, acute renal failure, next Lactic acidosis ? Likely sec to sepsis, Hyperkalemia, ? Status post D50, insulin, calcium gluconate Type 2 diabetes mellitus, blood sugars remain uncontrolled, in the high 400s start insulin drip COPD, no active wheezing, Full code ? Protonix for GI prophylaxis, ? Heparin drip for DVT prophylaxis, ? Prognosis guarded, status stable - Patient was seen earlier this morning, currently on 45% FiO2 ? He has a pupillary reflex he has not gag reflex, he opens his eyes to sternal rub, he withdraws from pain, ? Sedation has been off for the last 48 hours -the last time he had Versed was over 96 hours ago ? 1350 urine output ? Patient had dialysis about an hour into dialysis patient developed episodes of V. tach with low blood pressures, he was on 6 of Levophed, was placed on a lidocaine drip, ? Reexamine rhythm seems more like atrial fibrillation then V. tach, switched over to amiodarone drip, EXTR ?reexamine on amiodarone drip, heart rates are well-controlled, spoke to cardiology agreed with amiodarone drip, will continue for now ? Repeat echocardiogram ?spoke to neurology, as patient is less responsive, concerns for anoxic brain injury, CT head ordered EEG ordered, spoke to neurology, -next I spoke to pulmonary critical care -I had extensive discussion with patient's family, discussed patient's concerns for patient being less responsive, he has his reflexes intact, there is good pupillary reflex, gag reflex, withdraws from pain, but does not track, does not respond to his name will do CT of the head, EEG, consult neurology, concerns for anoxic brain injury, ultimately decision will be up to family in terms of giving him time versus terminally extubating him, when I discussed tracheostomy and PEG tube placement with patient's family told me that the stoma Param would want, and they would not want to put him through a tracheostomy and a PEG tube placement, if there was any significant anoxic injury or concerns for irreversible neurologic injury they would not want to keep him on artificial life support however they do want to give him some time and see what some the images and EEG and specialist input will help in the decision making Attestations Medical Necessity Statement*: Patient requires hospitalization for concerns for irreversible neurologic injury, anoxic brain injury, nonresponsiveness, with episodes of V. tach, A-fib with RVR, respiratory failure, currently intubated, sedated Coding Level of Care Code Critical Care >/= 30 minutes Critical care time (in minutes): 45 The high probability of a clinically significant, sudden or life threatening deterioration, as referenced in this documentation, required my full and direct attention, intervention and personal management. The critical care time shown is in addition to time spent performing any reported separately billable procedures and includes the following: [x] Data and vital sign review and interpretation [x] Patient assessment, examination and intervention [x] Medication orders and management [x] Patient/Family updates as able [x] Care Coordination and Documentation. Diagnoses Acute encephalopathy G93.40 Pneumonia due to COVID-19 virus U07.1; J12.82 Multifocal pneumonia J18.9 Acute renal failure, unspecified acute renal failure type N17.9 Acute renal failure type: unspecified Septic shock A41.9; R65.21 Multiorgan failure Acute hypoxic respiratory failure J96.01 V-tach I47.20 Shock R57.9 NSTEMI (non-ST elevated myocardial infarction) I21.4 CAPRI (acute kidney injury) N17.9 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 2 diabetes mellitus E11.22; N18.2 Morbid obesity E66.01 Coronary artery disease involving [place] coronary artery of [place] heart without angina pectoris I25.10 ICD (implantable cardioverter-defibrillator) in place Z95.810 Sustained ventricular tachycardia I47.20 Acute on chronic systolic congestive heart failure I50.9 Ischemic cardiomyopathy I25.5 Systolic CHF, acute I50.21 COPD (chronic obstructive pulmonary disease) J44.9 Obstructive sleep apnea G47.33 Tobacco abuse Z72.0 Metabolic acidosis E87.20 Lactic acidosis E87.20 Hyperkalemia E87.5 Hyponatremia E87.1 Goals of care, counseling/discussion Z71.89 Staphylococcus aureus pneumonia J15.211 Rhabdomyolysis M62.82 Shock liver K72.00 HHS (hypothenar hammer syndrome) I73.89 Gram-positive bacteremia R78.81 Uremia N19
[2023-08-19 20:12] LABS: Troponin 5 6HR 47.01 ng/L (0-15); Troponin 5 6HR Delta -4.99 ng/L (0-12)
--- NOTE | 2023-08-19 20:46 | PC.NURSE ---
When the patient was asked if they understood what this nurse was saying by blinking twice, the patient followed command and blinked twice. The patient was able to squeeze this nurse's hand very weakly. The patient was able to follow commands and wiggle his toes.
[2023-08-20] VITALS (62 sets, daily range): BP systolic 92–140; BP diastolic 51–78; PULSE 82–117; RESP 18–27; TEMP 36.2–37.9; O2SAT 92–97
[2023-08-20] MEDS: norepinephrine 4 MG/250 ML BAG 30 MG IV (02:29)
[2023-08-20] MEDS: chlorhexidine gluconate 4% Btl 118 mL 1 APPLIC TOPICAL (03:11)
[2023-08-20] MEDS: ipratropium-albuterol 3 mL Neb INHALATION ×5 (03:17→19:53)
--- NOTE | 2023-08-20 04:14 | PC.NURSE ---
Patient's pacemaker interrogated, Doctor to interpret. [employer] charting is in the patient's chart.
[2023-08-20 05:03] LABS: ABG PCO2 36.9 mmHg (35-45); ABG PH Result 7.42 (7.35-7.45); Arterial Blood Gas Hematocrit 34.6 % (42-52); Base Excess ABG -0.3 mmol/L (-2.0-2.0); Blood Gas Allen Test Pos; Blood Gas Operator Identificat JB; Blood Gas Sample Site Radial, left; Blood Gas Sample Type Arterial; Blood Gas Tidal Volume 0.45; HCO3 ABG 23.9 mmol/L (22-26); Oxygen Device VENT; PO2 ABG 70.1 mmHg (80.0-100.0); PO2 FiO2 Ratio Arterial Blood 0
[2023-08-20 05:09] LABS: Basophils % 0.2 %; Eosinophils # 0.5 10^3/uL (0.0-0.8); Eosinophils % 3.2 %; Hematocrit 31.1 % (37-53); Lymphocytes # 0.2 10^3/uL (0.8-4.8); Lymphocytes % 1.3 %; Mean Corpuscular HGB Conc 33.8 g/dL (30-55); Mean Corpuscular Hemoglobin 29.2 pg (27-33); Mean Corpuscular Volume 86.4 fl (82-101); Mean Platelet Volume 11.4 fL (7.4-10.4); Monocytes # 0.6 10^3/uL (0.2-0.9); Monocytes % 3.7 %; Neutrophils # 15.16 10^3/uL (1.8-7.7); Neutrophils % 89.9 %; Nucleated Red Blood Cells % 0.1 %; Platelet Count 283 10^3/cmm (157-399); Red Cell Distribution Width 16.2 % (12.1-15.1); White Blood Count 16.87 10^3/uL (3.29-11.43)
[2023-08-20] MEDS: linezolid premix 600 MG/300 ML PREMIX 300 MG IV ×2 (05:18→17:28)
[2023-08-20] MEDS: aspirin 81 mg EC Tablet PO (05:18)
[2023-08-20 05:21] LABS: INR 1.27 (0.8-1.2)
[2023-08-20 05:31] LABS: Alanine Aminotransferase 107 U/L (0-41); Albumin Level 3.4 g/dL (3.5-5.2); Alkaline Phosphatase 102 U/L (40-130); Anion Gap 21.3 (5-19); Aspartate Amino Transferase 77 U/L (0-40); Blood Urea Nitrogen 52 mg/dL (6-20); C Reactive Protein 130.1 mg/L (0.0-4.9); Calcium 8.8 mg/dL (8.5-10.5); Carbon Dioxide 22 mmol/L (22-29); Chloride 89 mmol/L (98-107); Globulin 2.6 g/dL (1.3-4.6); Glomerular Filtration Rate 21.5 mL/min (90-130); Glucose 209 mg/dL (65-115); Magnesium 2.4 mg/dL (1.7-2.3); Osmolality Calculated 288 mOsm/kg (285-295); Phosphorus 4.8 mg/dL (2.5-4.5); Potassium 3.3 mmol/L (3.5-5.1); Sodium 129 mmol/L (136-145); Total Bilirubin 1.8 mg/dL (0.15-1.2)
[2023-08-20 05:33] LABS: Lactate (Lactic Acid level) 1.3 mmol/L (0.5-2.2)
[2023-08-20 05:53] LABS: NT Pro B Type Natriuretic Pept 6953 pg/mL (0-125); Procalcitonin 2.47 ng/mL (0-0.5)
[2023-08-20 06:20] LABS: Creatine Phosphokinase 345 U/L (39-308)
--- NOTE | 2023-08-20 06:44 | P.PN_ITS ---
Subjective 2 Subjective: good UOP ON 8 MCG levophed on 35 % FIO2 Medications: Reviewed: Yes Vitals/I&O/Wt Last Vital Signs Temp 99 F 08/20/23 04:30 Pulse 99 08/20/23 06:30 Resp 25 H 08/20/23 06:30 BP 119/57 08/20/23 06:30 Pulse Ox 93 08/20/23 06:30 O2 Del Method Mechanical Ventilation 08/20/23 06:30 FiO2 35 08/20/23 06:30 08/19/23 08/19/23 08/20/23 14:59 22:59 06:59 Intake Total 658.812 / 658.812 718.574 / 1377.386 344.996 / 1722.382 Output Total 1050 / 1050 600 / 1650 Balance 658.812 / 658.812 -331.426 / 327.386 -255.004 / 72.382 Weight last 48 hrs Weight 128.707 kg Weight 128.73 kg Physical Exam 2 Narrative: Intubated sedated Urinary Catheter Management: Burciaga: Cath Placed During This Visit: yes Reason for Continuing Indwelling Catheter: Accurate Measurement of Urinary Output in Critically Ill Patients Urinary Catheter Date of Insertion: 08/11/23 Urinary Catheter Time of Insertion: 12:38 Data 08/20/23 04:20 08/20/23 04:20 A&P Assessment and plan (1) Acute renal failure: Qualifiers: Acute renal failure type: unspecified Qualified Code(s): N17.9 - Acute kidney failure, unspecified Plan 1. Acute kidney injury, in the setting of shock, cardiac arrest. Baseline creatinine was normal in November 2022. 2. COVID, multifocal pneumonia, VDRF, oxygenating well on 40% FIO2. Elevated vancomycin level, discontinued 3. Hyponatremia, hypervolemic, improving 4. Metabolic acidosis 5. Hyperphosphatemia: recommended change tube feed to nephro, 6. History of COPD, coronary artery disease, obesity Plan:UOP picked up , Hold off on HD , Will give 40 mg IV lasix today Attestations 2 Medical Necessity Statement*: per medicine team Coding Level of Care Code Acute Code for [facility] Fwd Diagnoses Acute renal failure, unspecified acute renal failure type N17.9 Acute renal failure type: unspecified
[2023-08-20] MEDS: FUROsemide 10 mg/mL SDV 4mL 40 MG IVP (07:28)
[2023-08-20 07:37] LABS: Glucose Point of Care 237 mg/dL (70-110)
[2023-08-20] MEDS: insulin lispro 100 unit/1 mL SUBCUT ×4 (07:43→21:15)
[2023-08-20] MEDS: ticagrelor 90 mg Tablet PO ×2 (09:14→17:24)
[2023-08-20] MEDS: meropenem 500 MG in sodium chloride 0.9% (plus) 50 ML 100 MG IV ×2 (09:16→21:16)
[2023-08-20 11:17] LABS: Glucose Point of Care 220 mg/dL (70-110)
--- NOTE | 2023-08-20 13:55 | XR_ITS ---
WS: [id number] PORTABLE CHEST HISTORY: NG tube placement COMPARISON: 08/18/2023 Lung apices are excluded. Mild pulmonary venous congestion. No dense areas of consolidation. Small LEFT pleural effusion. Cardiac size: Mildly enlarged cardiac silhouette. Mediastinum/Aorta: Normal mediastinum. No osseous abnormality seen. Nasogastric tube is in good position with the tip in the stomach. Endotracheal tube in good position. LEFT central line with tip in the distal SVC. IMPRESSION: 1. Satisfactory positioning of the nasogastric tube. 2. Mild pulmonary congestion and small LEFT pleural effusion.
--- NOTE | 2023-08-20 17:09 | PC.NURSE ---
1699 Gradually turning norephinepherine drip down as vitals allowed as ordered, to off now.
[2023-08-20 17:17] LABS: Glucose Point of Care 210 mg/dL (70-110)
[2023-08-20] MEDS: atorvastatin 40 mg Tablet 80 MG PO (17:26)
[2023-08-20] MEDS: pantoprazole 40 mg SDV IVP (17:26)
--- NOTE | 2023-08-20 17:48 | P.PN_ITS ---
Subjective 2 Subjective: Patient was seen this morning, remains off sedation for the last 72 hours, he does open his eyes to his name's, he does track me a little bit, has a cough reflex, has a gag reflex, does withdraw from pain, does respond to sternal rub, when I asked him to squeeze my fingers, on the right side he was able to do it although it was feeding, he remains on Levophed at 9, afebrile, normotensive, urine output has picked up 1650, is on 35% FiO2, intubated, mechanical ventilation Vitals/I&O/Wt Last Vital Signs Temp 100.2 F H 08/20/23 16:00 Pulse 93 08/20/23 16:00 Resp 27 H 08/20/23 17:19 BP 114/66 08/20/23 16:00 Pulse Ox 95 08/20/23 17:19 O2 Del Method Mechanical Ventilation 08/20/23 15:20 FiO2 35 08/20/23 17:19 08/20/23 08/20/23 08/20/23 06:59 14:59 22:59 Intake Total 644.996 / 2072.382 411.408 / 411.408 193.87 / 605.278 Output Total 600 / 1650 Balance 44.996 / 422.382 411.408 / 411.408 193.87 / 605.278 Weight last 48 hrs Weight 128.707 kg Weight 128.73 kg Physical Exam 2 Const: COMMON NORMALS: no acute distress Resp: COMMON NORMALS: normal respiratory effort, No retractions, No use of accessory muscles and clear to auscultation bilaterally AUSCULTATION: clear to auscultation bilaterally Cardio: COMMON NORMALS: regular rate, regular rhythm, S1 normal heart sound present and S2 normal heart sound present RATE: regular rate RHYTHM: r egular rhythm HEART SOUNDS: S1 normal heart sound present and S2 normal heart sound present GI: COMMON NORMALS: Normal to inspection, nondistended, normoactive bowel sounds present and non-tender Extremity: COMMON NORMALS: no pedal edema Urinary Catheter Management: Burciaga: Cath Placed During This Visit: yes Reason for Continuing Indwelling Catheter: Accurate Measurement of Urinary Output in Critically Ill Patients Urinary Catheter Date of Insertion: 08/11/23 Urinary Catheter Time of Insertion: 12:38 Data 08/20/23 04:20 08/20/23 04:20 Micro: Microbiology 08/12/23 04:50 Blood Culture - Final Blood A&P Assessment and plan (1) Acute encephalopathy: (2) Pneumonia due to COVID-19 virus: (3) Multifocal pneumonia: (4) Acute renal failure: Qualifiers: Acute renal failure type: unspecified Qualified Code(s): N17.9 - Acute kidney failure, unspecified (5) Septic shock: (6) Multiorgan failure: (7) Acute hypoxic respiratory failure: (8) V-tach: (9) Shock: (10) NSTEMI (non-ST elevated myocardial infarction): (11) CAPRI (acute kidney injury): (12) 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 2 diabetes mellitus: (13) Morbid obesity: (14) CAD (coronary artery disease): (15) ICD (implantable cardioverter-defibrillator) in place: (16) Sustained ventricular tachycardia: (17) CHF (congestive heart failure): (18) Ischemic cardiomyopathy: (19) Systolic CHF, acute: (20) COPD (chronic obstructive pulmonary disease): (21) Obstructive sleep apnea: (22) Tobacco abuse: (23) Metabolic acidosis: (24) Lactic acidosis: (25) Hyperkalemia: (26) Hyponatremia: (27) Goals of care, counseling/discussion: (28) Staphylococcus aureus pneumonia: (29) Rhabdomyolysis: (30) Shock liver: (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 Likely component of hyponatremia, uremia, sepsis ? Some component related to sedating medications such as Versed, -concerns for anoxic brain injury, ?continue neurochecks, ? Monitor mentation closely, ? CT of the head IMPRESSION: 1. No evidence of intracranial hemorrhage or mass effect. 2. Mild small vessel changes with mild parenchymal volume loss. 3. Diffuse paranasal sinusitis with air-fluid levels. 4. No acute intracranial findings. -EEG -neurology consulted Ventricular tachycardia ? Status post cardioversion, Versed, fentanyl, -Cardiology consulted A-fib with RVR -Seen on telemetry -On amiodarone drip Hyperglycemia with concern for HHS, increased anion gap 24.7,resolved ? on subcut insulin ? Monitor blood sugars ? Monitor anion gap, ? Monitor potassium Shock liver, resolving ? Likely sec to septic shock ?continue to monitor closely NSTEMI -According to family, coronary angiography done at the [facility], was within normal limits, stents no significant obstruction, no intervention required he also had a pacemaker check about a month ago which was within normal limits -Serial EKGs, starting troponins, telemetry monitoring, ? Aspirin, statin, Brilinta ?cardiac echo ? Completed 48 hours of heparin drip, switch to subcu heparin ?cardiology consulted Acute hypoxic respiratory failure ? Likely secondary to COVID-19 pneumonia, multifocal bacterial pneumonia, Staph aureus pneumonia ? Some component related to systolic CHF, fluid overload ? Plan -Monitor respiratory status closely, ? Continue vancomycin ? Continue meropenem ? Completed remdesivir, -decadron ? Follow blood cultures, sputum cultures ? Subcu heparin drip as above, ? Currently intubated, sedated, minimize tidal volume, FiO2, ? Currently on fentanyl, Versed, Precedex for sedation, ? Daily spontaneous breathing trials, -Pulmonary consulted Gram-positive bacteremia, staph lundgensus ? Continue Zyvox -Repeat blood cultures pending COVID-19 pneumonia, ? completed remdesivir, ? Continue steroids Multifocal bacterial pneumonia, Staph aureus positive sputum cultures ? As above Septic shock, -COVID-19, dialysis, currently on 9 of levophed ? Currently on Levophed ? Off vasopressin ? off epinephrine drip ? Scheduled albumin ? Follow cultures Acute renal failure ? Likely secondary to sepsis, septic shock, COVID-19 ? Consulted nephrology, ? dialysis catheter placement, -Issues with CRRT machine ? Monitor urine output, lackluster for the last 24-48 hrs. ? s/p Dialysis yesterday ? Plan on dialysis today Metabolic acidosis ? Likely secondary to sepsis, septic shock, acute renal failure, next Lactic acidosis ? Likely sec to sepsis, Hyperkalemia, ? Status post D50, insulin, calcium gluconate Type 2 diabetes mellitus, blood sugars remain uncontrolled, in the high 400s start insulin drip COPD, no active wheezing, Full code ? Protonix for GI prophylaxis, ? Heparin drip for DVT prophylaxis, ? Prognosis guarded, status stable -Patient was seen this morning, remains off sedation for the last 72 hours, he does open his eyes to his name's, he does track me a little bit, has a cough reflex, has a gag reflex, does withdraw from pain, does respond to sternal rub, when I asked him to squeeze my fingers, on the right side he was able to do it although it was feeding, he remains on Levophed at 9, afebrile, normotensive, urine output has picked up 1650, is on 35% FiO2, intubated, mechanical ventilation Attestations 2 Medical Necessity Statement*: Patient requires hospitalization for septic shock, respiratory failure, pneumonia Staph aureus, persistent encephalopathy Coding Level of Care Code Critical Care >/= 30 minutes Critical care time (in minutes): 45 The high probability of a clinically significant, sudden or life threatening deterioration, as referenced in this documentation, required my full and direct attention, intervention and personal management. The critical care time shown is in addition to time spent performing any reported separately billable procedures and includes the following: [x] Data and vital sign review and interpretation [x ] Patient assessment, examination and intervention [x] Medication orders and management [x] Patient/Family updates as able [x] Care Coordination and Documentation. Diagnoses Acute encephalopathy G93.40 Pneumonia due to COVID-19 virus U07.1; J12.82 Multifocal pneumonia J18.9 Acute renal failure, unspecified acute renal failure type N17.9 Acute renal failure type: unspecified Septic shock A41.9; R65.21 Multiorgan failure Acute hypoxic respiratory failure J96.01 V-tach I47.20 Shock R57.9 NSTEMI (non-ST elevated myocardial infarction) I21.4 CAPRI (acute kidney injury) N17.9 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 2 diabetes mellitus E11.22; N18.2 Morbid obesity E66.01 Coronary artery disease involving [place] coronary artery of [place] heart without angina pectoris I25.10 ICD (implantable cardioverter-defibrillator) in place Z95.810 Sustained ventricular tachycardia I47.20 Acute on chronic systolic congestive heart failure I50.9 Ischemic cardiomyopathy I25.5 Systolic CHF, acute I50.21 COPD (chronic obstructive pulmonary disease) J44.9 Obstructive sleep apnea G47.33 Tobacco abuse Z72.0 Metabolic acidosis E87.20 Lactic acidosis E87.20 Hyperkalemia E87.5 Hyponatremia E87.1 Goals of care, counseling/discussion Z71.89 Staphylococcus aureus pneumonia J15.211 Rhabdomyolysis M62.82 Shock liver K72.00 HHS (hypothenar hammer syndrome) I73.89 Gram-positive bacteremia R78.81 Uremia N19
[2023-08-20 18:48] LABS: Protein Urine 1+ (Negative); Specific Gravity, Urine 1.015 (1.005-1.030); Urine Appearance Cloudy (CLEAR); Urine Color Brown (Yellow); pH Urine 5 (5-7)
[2023-08-20 18:49] LABS: Add Urine Microscopic? YES; Bilirubin Urine Neg (Negative); Blood Urine 3+ (Negative); Glucose Urine UA 4+ (Normal); Ketones Urine 1+ (Negative); Leukocyte Esterase Urine Trace (Negative); Nitrate Urine Negative (Negative); Urobilinogen Urine Norm (Negative)
[2023-08-20 18:51] LABS: Amorphous Sediment Urine 2+ /hpf; Bacteria Urine 1+ /hpf; Mucus Urine 2+ /hpf; RBC Urine >100 /hpf (0-2); Squamous Epithelial Cell Urine 0-4 /hpf (0-5)
[2023-08-20 18:52] LABS: Add Urine Culture? No; Fine Granular Casts Urine 0-4 /lpf; Hyaline Casts Urine 0-4 /lpf
[2023-08-20 20:20] LABS: Adenovirus Not Detected (NOT DETECT); Chlamydia Pneumoniae Not Detected (NOT DETECT); Coronavirus 229E,HKU1,NL63,OC4 Not Detected (NOT DETECT); Human Metapneumovirus Not Detected (NOT DETECT); Human Rhinovirus/Enterovirus Not Detected (NOT DETECT); Influenza A Not Detected (NOT DETECT); Influenza A H1 Not Detected (NOT DETECT); Influenza A H1-2009 Not Detected (NOT DETECT); Influenza A H3 Not Detected (NOT DETECT); Influenza B Not Detected (NOT DETECT); Mycoplasma Pneumoniae Not Detected (NOT DETECT); Parainfluenza Virus Type 1 Not Detected (NOT DETECT); Parainfluenza Virus Type 2 Not Detected (NOT DETECT); Parainfluenza Virus Type 3 Not Detected (NOT DETECT); Parainfluenza Virus Type 4 Not Detected (NOT DETECT); Respiratory Syncytial Virus A Not Detected (NOT DETECT); Respiratory Syncytial Virus B Not Detected (NOT DETECT)
[2023-08-20 20:26] LABS: SARS-COV-2 Detected (NOT DETECT)
[2023-08-20] MEDS: norepinephrine 4 MG/250 ML BAG 7.5 MG IV (20:37)
[2023-08-20 21:11] LABS: Glucose Point of Care 227 mg/dL (70-110)
[2023-08-21] VITALS (60 sets, daily range): BP systolic 84–129; BP diastolic 46–96; PULSE 78–106; RESP 18–29; TEMP 36.8–37.6; O2SAT 31–98
[2023-08-21] MEDS: ipratropium-albuterol 3 mL Neb INHALATION ×7 (00:30→23:37)
[2023-08-21] MEDS: chlorhexidine gluconate 4% Btl 118 mL 1 APPLIC TOPICAL (01:13)
--- NOTE | 2023-08-21 01:19 | PC.NURSE ---
Bedbath: This nurse went into patient's room ready to give a bed bath. When patient was asked if they wanted a bath they shook their heads no. This nurse asked patient to blink twice if they understood what this nurse was saying to which the patient blinked twice.
[2023-08-21 03:57] LABS: Basophils % 0.3 %; Eosinophils % 0.1 %; Hematocrit 29.6 % (37-53); Lymphocytes # 0.3 10^3/uL (0.8-4.8); Mean Corpuscular HGB Conc 34.5 g/dL (30-55); Mean Corpuscular Hemoglobin 29.5 pg (27-33); Mean Corpuscular Volume 85.5 fl (82-101); Mean Platelet Volume 11.3 fL (7.4-10.4); Monocytes # 0.7 10^3/uL (0.2-0.9); Monocytes % 4.4 %; Neutrophils # 13.57 10^3/uL (1.8-7.7); Neutrophils % 92.5 %; Nucleated Red Blood Cells % 0 %; Platelet Count 293 10^3/cmm (157-399); Red Blood Count 3.46 10^6/uL (3.85-5.65); Red Cell Distribution Width 16.1 % (12.1-15.1); White Blood Count 14.68 10^3/uL (3.29-11.43)
[2023-08-21 04:09] LABS: INR 1.28 (0.8-1.2)
[2023-08-21 04:19] LABS: Lactate (Lactic Acid level) 1.6 mmol/L (0.5-2.2)
[2023-08-21 04:20] LABS: Alanine Aminotransferase 76 U/L (0-41); Alkaline Phosphatase 107 U/L (40-130); Aspartate Amino Transferase 65 U/L (0-40); Blood Urea Nitrogen 48 mg/dL (6-20); C Reactive Protein 142.3 mg/L (0.0-4.9); Calcium 8.7 mg/dL (8.5-10.5); Carbon Dioxide 24 mmol/L (22-29); Chloride 90 mmol/L (98-107); Glomerular Filtration Rate 26.6 mL/min (90-130); Glucose 193 mg/dL (65-115); Magnesium 2.2 mg/dL (1.7-2.3); Osmolality Calculated 288 mOsm/kg (285-295); Sodium 130 mmol/L (136-145); Total Bilirubin 1.7 mg/dL (0.15-1.2)
[2023-08-21 04:28] LABS: NT Pro B Type Natriuretic Pept 8538 pg/mL (0-125)
[2023-08-21 04:43] LABS: Creatine Phosphokinase 164 U/L (39-308)
[2023-08-21] MEDS: aspirin 81 mg EC Tablet PO (05:20)
[2023-08-21] MEDS: linezolid premix 600 MG/300 ML PREMIX 300 MG IV ×2 (05:20→17:28)
[2023-08-21 05:24] LABS: ABG PCO2 37.6 mmHg (35-45); ABG PH Result 7.45 (7.35-7.45); Arterial Blood Gas Hematocrit 36.2 % (42-52); Base Excess ABG 2.2 mmol/L (-2.0-2.0); Blood Gas Allen Test Pos; Blood Gas Operator Identificat JB; Blood Gas Sample Site Radial, left; Blood Gas Sample Type Arterial; HCO3 ABG 26.2 mmol/L (22-26); Oxygen Device VENT
[2023-08-21 05:25] LABS: Blood Gas Tidal Volume 0.45; PO2 FiO2 Ratio Arterial Blood 0
[2023-08-21] MEDS: potassium chloride premix 100 ML 25 MEQ IV (06:33)
--- NOTE | 2023-08-21 07:00 | XR_ITS ---
WS: [id number] XR chest 1V portable [id number] REASON FOR EXAM: sob FINDINGS: Endotracheal tube and left internal jugular central venous line and nasogastric tube remain in proper position. Left chest cardiac device and left subclavian lead to right ventricular apex are unchanged. Interstitial lung opacities and central venous congestion continue to resolve. Increased opacity of the left lower hemithorax which would appear to be due to lung consolidation and pleural effusion. The finding is somewhat more prominent than on the previous examination of 4. Significant gastric distention has resolved. IMPRESSION: Gastric distention resolved. Lung consolidation and pleural effusion in the left lower hemithorax more prominent.
[2023-08-21 07:25] LABS: Glucose Point of Care 224 mg/dL (70-110)
[2023-08-21] MEDS: insulin lispro 100 unit/1 mL SUBCUT ×4 (09:18→22:04)
[2023-08-21] MEDS: meropenem 500 MG in sodium chloride 0.9% (plus) 50 ML 100 MG IV ×2 (09:19→22:05)
[2023-08-21] MEDS: FUROsemide 10 mg/mL SDV 4mL 40 MG IVP (09:19)
[2023-08-21] MEDS: ticagrelor 90 mg Tablet PO ×2 (09:19→17:28)
--- NOTE | 2023-08-21 10:29 | P.PN_ITS ---
Subjective 2 Subjective: UOP improved Medications: Reviewed: Yes Vitals/I&O/Wt Last Vital Signs Temp 98.4 F 08/21/23 04:00 Pulse 86 08/21/23 08:00 Resp 24 H 08/21/23 10:03 BP 122/64 08/21/23 06:00 Pulse Ox 96 08/21/23 10:03 O2 Del Method Mechanical Ventilation 08/21/23 08:00 FiO2 35 08/21/23 10:03 08/20/23 08/21/23 08/21/23 22:59 06:59 14:59 Intake Total 743.87 / 1155.278 319.424 / 1474.702 Output Total 2075 / 2075 600 / 2675 Balance -1331.13 / -919.722 -280.576 / -1200.298 Weight last 48 hrs Weight 128.707 kg Weight 128.707 kg Physical Exam 2 Narrative: Intubated sedated Urinary Catheter Management: Burciaga: Cath Placed During This Visit: yes Reason for Continuing Indwelling Catheter: Accurate Measurement of Urinary Output in Critically Ill Patients Urinary Catheter Date of Insertion: 08/11/23 Urinary Catheter Time of Insertion: 12:38 Data 08/21/23 03:18 08/21/23 03:18 Micro: Microbiology 08/12/23 04:50 Blood Culture - Final Blood A&P Assessment and plan (1) Acute renal failure: Qualifiers: Acute renal failure type: unspecified Qualified Code(s): N17.9 - Acute kidney failure, unspecified Plan 1. Acute kidney injury, in the setting of shock, cardiac arrest. Baseline creatinine was normal in November 2022. 2. COVID, multifocal pneumonia, VDRF, oxygenating well on 40% FIO2. Elevated vancomycin level, discontinued 3. Hyponatremia, hypervolemic, 4. Metabolic acidosis 5. Hyperphosphatemia: recommended change tube feed to nephro, 6. History of COPD, coronary artery disease, obesity Plan:UOP picked up , Hold off on HD , can give PRN lasix , plan for extubation today Attestations 2 Medical Necessity Statement*: per medicine team Coding Level of Care Code Acute Code for [facility] Fwd Diagnoses Acute renal failure, unspecified acute renal failure type N17.9 Acute renal failure type: unspecified
[2023-08-21 11:16] LABS: Glucose Point of Care 203 mg/dL (70-110)
[2023-08-21] MEDS: amiodarone 200 mg Tablet 400 MG PO ×2 (11:19→17:25)
--- NOTE | 2023-08-21 14:35 | PC.SOCIAL ---
IMM Update pg 2 of IMM not updated as patient is currently intubated. Copy placed @ bedside and copy dated, initialed and placed in chart.
--- NOTE | 2023-08-21 15:50 | PC.NURSE ---
Addendum entered by Misty Virgen RN 08/21/23 15:52: Witnessed waste of Fentanyl Original Note: Pt extubated, Dr. Mcgraw at bedside Wasted 89 ml of IV fentanyl drip
[2023-08-21] MEDS: pantoprazole 40 mg SDV IVP (17:02)
[2023-08-21 17:07] LABS: Glucose Point of Care 173 mg/dL (70-110)
--- NOTE | 2023-08-21 17:16 | PM.PN ---
Subjective Subjective: - Patient was examined multiple times throughout the morning into the afternoon into the evening -Early in the morning he was examined, remains afebrile, normotensive, on 1 of Levophed, on 35% FiO2, ? Early in the morning he had a pupillary reflex he can track me he has a cough reflex has a gag reflex he withdraws for pain he follows commands he is able to squeeze my fingers bilaterally able to wiggle his toes bilaterally able to nod yes or no, -When asked him if he wanted me to pull the tube, he nods yes -Placed on spontaneous breathing trial throughout the morning into the afternoon -Patient did well through his spontaneous breathing trials, remains alert awake, following all commands, -I had a detailed discussion with patient's mother, discussed goals of care -Discussed future directives, we plan on extubating him today, discussed possibilities, after extubation what happens if his respiratory status worsens when she want her son to be reintubated -I discussed the possibility of reintubation, he has a high risk of morbidity mortality during intubation process given his obesity, he has a high risk of morbidity and mortality if he were to end up back on the ventilator, he is a high risk of remaining on mechanical ventilation for the rest of his life, he is at high risk of morbidity and mortality high risk of infections, he likely will need a trach and PEG and moving to a long-term care facility if he was reintubated, ? I will do my best to avoid reintubation, we can do heated high flow we can do BiPAP but if all those fail, what we do to be reintubate him or do we just try BiPAP or if his conditions worsen ease his pain and ease his suffering allow him to pass away comfortably, ? I discussed all options that are available Patient, shared decision making, voiced understanding, all questions answered, -Patient's mother wanted some time to discuss with her , he is home sick with COVID, before she would come to decision -Patient was reexamined, earlier in the afternoon, he is much more responsive he can follow commands he is doing well with a spontaneous breathing trial afebrile normotensive off Levophed -I was able to discuss with patient's mother again in the afternoon, in the family waiting room, she is discussed with her and the rest of her family she would not want Param reintubated if he were to go into respiratory failure, discussed risk and benefits, she voiced understanding, all questions answered, agreed to proceed -I discussed with patient's mother that we will going to plan extubate him later on this afternoon -Patient was not reexamined, is doing well this point is breathing trial following commands, patient was extubated to 3 L -On 3 L he has a weak cough he follows all commands, doing well, -Just asked with nursing staff that the night recommend to BiPAP, had speech therapy evaluation PT OT, continue to monitor closely -He is already been giving 40 mg IV push Lasix has had good urine output -Will start him on peripheral nutrition - Vitals/I&O/Wt Last Vital Signs Temp 99.2 F 08/21/23 07:00 Pulse 96 08/21/23 15:59 Resp 18 08/21/23 15:56 BP 126/71 08/21/23 14:00 Pulse Ox 95 08/21/23 15:56 O2 Del Method Nasal Cannula 08/21/23 15:56 O2 Flow Rate 3 08/21/23 15:56 FiO2 30 08/21/23 14:36 08/21/23 08/21/23 08/21/23 06:59 14:59 22:59 Intake Total 319.424 / 1474.702 0 / 0 Output Total 600 / 2675 Balance -280.576 / -1200.298 0 / 0 Weight last 48 hrs Weight 128.707 kg Weight 128.707 kg Physical Exam Const: COMMON NORMALS: no acute distress ORIENTATION/CONSCIOUSNESS: Yes awake and Yes oriented to person Resp: COMMON NORMALS: normal respiratory effort, No retractions, No use of accessory muscles and clear to auscultation bilaterally AUSCULTATION: clear to auscultation bilaterally Cardio: COMMON NORMALS: regular rate, regular rhythm, S1 normal heart sound present and S2 normal heart sound present RATE: regular rate RHYTHM: regular rhythm HEART SOUNDS: S1 normal heart sound present and S2 normal heart sound present GI: COMMON NORMALS: Normal to inspection, nondistended, normoactive bowel sounds present and non-tender Extremity: COMMON NORMALS: no pedal edema Neuro: SENSORIUM/ORIENTATION: Yes oriented to person Urinary Catheter Management: Burciaga: Cath Placed During This Visit: yes Reason for Continuing Indwelling Catheter: Accurate Measurement of Urinary Output in Critically Ill Patients Urinary Catheter Date of Insertion: 08/11/23 Urinary Catheter Time of Insertion: 12:38 Data 08/21/23 03:18 08/21/23 03:18 Micro: Microbiology 08/12/23 04:50 Blood Culture - Final Blood A&P Assessment and plan (1) Acute encephalopathy: (2) Pneumonia due to COVID-19 virus: (3) Multifocal pneumonia: (4) Acute renal failure: Qualifiers: Acute renal failure type: unspecified Qualified Code(s): N17.9 - Acute kidney failure, unspecified (5) Septic shock: (6) Multiorgan failure: (7) Acute hypoxic respiratory failure: (8) V-tach: (9) Shock: (10) NSTEMI (non-ST elevated myocardial infarction): (11) CAPRI (acute kidney injury): (12) 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 2 diabetes mellitus: (13) Morbid obesity: (14) CAD (coronary artery disease): (15) ICD (implantable cardioverter-defibrillator) in place: (16) Sustained ventricular tachycardia: (17) CHF (congestive heart failure): (18) Ischemic cardiomyopathy: (19) Systolic CHF, acute: (20) COPD (chronic obstructive pulmonary disease): (21) Obstructive sleep apnea: (22) Tobacco abuse: (23) Metabolic acidosis: (24) Lactic acidosis: (25) Hyperkalemia: (26) Hyponatremia: (27) Goals of care, counseling/discussion: (28) Staphylococcus aureus pneumonia: (29) Rhabdomyolysis: (30) Shock liver: (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 Likely component of hyponatremia, uremia, sepsis ? Some component related to sedating medications such as Versed, -concerns for anoxic brain injury, ?continue neurochecks, ? Monitor mentation closely, ? CT of the head IMPRESSION: 1. No evidence of intracranial hemorrhage or mass effect. 2. Mild small vessel changes with mild parenchymal volume loss. 3. Diffuse paranasal sinusitis with air-fluid levels. 4. No acute intracranial findings. -EEG -neurology consulted Ventricular tachycardia ? Status post cardioversion, Versed, fentanyl, -Cardiology consulted A-fib with RVR -Seen on telemetry -On amiodarone drip -will consider full dose anticoagulation based on clinical progress Hyperglycemia with concern for HHS, increased anion gap 24.7,resolved ? on subcut insulin ? Monitor blood sugars ? Monitor anion gap, ? Monitor potassium Shock liver, resolving ? Likely sec to septic shock ?continue to monitor closely NSTEMI -According to family, coronary angiography done at the [facility], was within normal limits, stents no significant obstruction, no intervention required he also had a pacemaker check about a month ago which was within normal limits -Serial EKGs, starting troponins, telemetry monitoring, ? Aspirin, statin, Brilinta ?cardiac echo ? Completed 48 hours of heparin drip, switch to subcu heparin ?cardiology consulted Acute hypoxic respiratory failure ? Likely secondary to COVID-19 pneumonia, multifocal bacterial pneumonia, Staph aureus pneumonia ? Some component related to systolic CHF, fluid overload ? Plan -Monitor respiratory status closely, ? Continue zyvox ? Continue meropenem ? Completed remdesivir, ? Follow blood cultures, sputum cultures ? Subcu heparin drip as above, ?extubated -on nasal cannula -bipap during the night ? , Precedex for sedation, -Pulmonary consulted Gram-positive bacteremia, staph lundgensus ? Continue Zyvox -Repeat blood cultures negative so far COVID-19 pneumonia, ? completed remdesivir, ? completed steroids Multifocal bacterial pneumonia, Staph aureus positive sputum cultures ? As above Septic shock, resolved -COVID-19, dialysis, currently on 9 of levophed ? Currently on Levophed ? Off vasopressin ? off epinephrine drip ? Scheduled albumin ? Follow cultures Acute renal failure ? Likely secondary to sepsis, septic shock, COVID-19 ? Consulted nephrology, ? dialysis catheter placement, -Issues with CRRT machine ? Monitor urine output, lackluster for the last 24-48 hrs. ? s/p Dialysis yesterday ? Plan on diureses Metabolic acidosis resolved ? Likely secondary to sepsis, septic shock, acute renal failure, next Lactic acidosis resolved ? Likely sec to sepsis, Hyperkalemia, resolving ? Status post D50, insulin, calcium gluconate Type 2 diabetes mellitus, blood sugars remain uncontrolled, low-dose Lantus, COPD, no active wheezing, DO NOT INTUBATE, okay with CPR, drugs per ACLS ? Protonix for GI prophylaxis, ? Heparin for DVT prophylaxis, ? Prognosis guarded, status stable -- Patient was examined multiple times throughout the morning into the afternoon into the evening -Early in the morning he was examined, remains afebrile, normotensive, on 1 of Levophed, on 35% FiO2, ? Early in the morning he had a pupillary reflex he can track me he has a cough reflex has a gag reflex he withdraws for pain he follows commands he is able to squeeze my fingers bilaterally able to wiggle his toes bilaterally able to nod yes or no, -When asked him if he wanted me to pull the tube, he nods yes -Placed on spontaneous breathing trial throughout the morning into the afternoon -Patient did well through his spontaneous breathing trials, remains alert awake, following all commands, -I had a detailed discussion with patient's mother, discussed goals of care -Discussed future directives, we plan on extubating him today, discussed possibilities, after extubation what happens if his respiratory status worsens when she want her son to be reintubated -I discussed the possibility of reintubation, he has a high risk of morbidity mortality during intubation process given his obesity, he has a high risk of morbidity and mortality if he were to end up back on the ventilator, he is a high risk of remaining on mechanical ventilation for the rest of his life, he is at high risk of morbidity and mortality high risk of infections, he likely will need a trach and PEG and moving to a long-term care facility if he was reintubated, ? I will do my best to avoid reintubation, we can do heated high flow we can do BiPAP but if all those fail, what we do to be reintubate him or do we just try BiPAP or if his conditions worsen ease his pain and ease his suffering allow him to pass away comfortably, ? I discussed all options that are available Patient, shared decision making, voiced understanding, all questions answered, -Patient's mother wanted some time to discuss with her , he is home sick with COVID, before she would come to decision -Patient was reexamined, earlier in the afternoon, he is much more responsive he can follow commands he is doing well with a spontaneous breathing trial afebrile normotensive off Levophed -I was able to discuss with patient's mother again in the afternoon, in the family waiting room, she is discussed with her and the rest of her family she would not want Param reintubated if he were to go into respiratory failure, discussed risk and benefits, she voiced understanding, all questions answered, agreed to proceed -I discussed with patient's mother that we will going to plan extubate him later on this afternoon -Patient was not reexamined, is doing well this point is breathing trial following commands, patient was extubated to 3 L -On 3 L he has a weak cough he follows all commands, doing well, -Just asked with nursing staff that the night recommend to BiPAP, had speech therapy evaluation PT OT, continue to monitor closely -He is already been giving 40 mg IV push Lasix has had good urine output -Will start him on peripheral nutrition Attestations Medical Necessity Statement*: Patient requires hospitalization for pneumonia, Staph aureus, COVID-19, staph lung Sara bacteremia, renal failure, encephalopathy Coding Level of Care Code Critical Care >/= 30 minutes Critical care time (in minutes): 55 The high probability of a clinically significant, sudden or life threatening deterioration, as referenced in this documentation, required my full and direct attention, intervention and personal management. The critical care time shown is in addition to time spent performing any reported separately billable procedures and includes the following: [x] Data and vital sign review and interpretation [x] Patient assessment, examination and intervention [x] Medication orders and management [x] Patient/Family updates as able [x] Care Coordination and Documentation. Diagnoses Acute encephalopathy G93.40 Pneumonia due to COVID-19 virus U07.1; J12.82 Multifocal pneumonia J18.9 Acute renal failure, unspecified acute renal failure type N17.9 Acute renal failure type: unspecified Septic shock A41.9; R65.21 Multiorgan failure Acute hypoxic respiratory failure J96.01 V-tach I47.20 Shock R57.9 NSTEMI (non-ST elevated myocardial infarction) I21.4 CAPRI (acute kidney injury) N17.9 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 2 diabetes mellitus E11.22; N18.2 Morbid obesity E66.01 Coronary artery disease involving [place] coronary artery of [place] heart without angina pectoris I25.10 ICD (implantable cardioverter-defibrillator) in place Z95.810 Sustained ventricular tachycardia I47.20 Acute on chronic systolic congestive heart failure I50.9 Ischemic cardiomyopathy I25.5 Systolic CHF, acute I50.21 COPD (chronic obstructive pulmonary disease) J44.9 Obstructive sleep apnea G47.33 Tobacco abuse Z72.0 Metabolic acidosis E87.20 Lactic acidosis E87.20 Hyperkalemia E87.5 Hyponatremia E87.1 Goals of care, counseling/discussion Z71.89 Staphylococcus aureus pneumonia J15.211 Rhabdomyolysis M62.82 Shock liver K72.00 HHS (hypothenar hammer syndrome) I73.89 Gram-positive bacteremia R78.81 Uremia N19
[2023-08-21] MEDS: atorvastatin 40 mg Tablet 80 MG PO (17:25)
--- NOTE | 2023-08-21 17:32 | XR_ITS ---
WS: [id number] XR KUB portable [id number] REASON FOR EXAM: ileus FINDINGS: No free air or retroperitoneal air identified. The NG tube has removed and there is moderate/significant gaseous distention of the stomach. There is moderate gaseous distention of segments of transverse and left and right colon. Presumed left femoral/iliac vein central line remains in position. IMPRESSION: Gastric and colon distention as above.
[2023-08-21] MEDS: heparin 5,000 unit/mL INJ 1 mL 5000 UNIT SUBCUT (17:40)
--- NOTE | 2023-08-21 18:29 | PC.NURSE ---
ventricular beats noted, Dr. Mcgraw ordered to restart amio at 0.5
[2023-08-21] MEDS: AA-Dex 5%-20% w/Lytes 1,000 ML 21 ML IV (19:20)
[2023-08-21 21:49] LABS: Glucose Point of Care 217 mg/dL (70-110)
--- NOTE | 2023-08-21 22:54 | PC.NURSE ---
Patient refused Bipap stating that they had stents in their mouth. This nurse assessed the mouth and saw nothing. The patient said God Godwin i have stents in my mouth ask the doctor . This nurse reviewed the patient's chart and saw nothing about stents in their mouth. The face mask of the Bipap was changed and the patient seemed to calm down.
--- NOTE | 2023-08-21 23:01 | PC.NURSE ---
Addendum entered by Arley Milton RN 08/22/23 02:18: After more education was provided to the patient, the patient allowed this nurse to turn them to prevent pressure injuries. Original Note: Patient is refusing turning and gives no reason. Education was provided about the risk of pressure injuries.
[2023-08-22] VITALS (61 sets, daily range): BP systolic 80–135; BP diastolic 48–82; PULSE 69–95; RESP 16–30; TEMP 35.9–36.7; O2SAT 86–98
[2023-08-22 02:24] LABS: Fibrinogen Degradation Product 80 mcg/mL (LESS THAN 5)
[2023-08-22] MEDS: heparin 5,000 unit/mL INJ 1 mL 5000 UNIT SUBCUT ×3 (02:42→09:17)
[2023-08-22] MEDS: ipratropium-albuterol 3 mL Neb INHALATION ×6 (03:39→23:49)
[2023-08-22 04:22] LABS: ABG PCO2 37.5 mmHg (35-45); ABG PH Result 7.48 (7.35-7.45); Base Excess ABG 4.3 mmol/L (-2.0-2.0); Blood Gas Allen Test Pos; Blood Gas Operator Identificat JB; Blood Gas Sample Site Radial, left; Blood Gas Sample Type Arterial; Oxygen Device BIPAP; PO2 FiO2 Ratio Arterial Blood 0
[2023-08-22 04:41] LABS: Basophils # 0.1 10^3/uL (0.0-0.1); Basophils % 0.5 %; Eosinophils # 1.4 10^3/uL (0.0-0.8); Eosinophils % 9.5 %; Hematocrit 29.6 % (37-53); Lymphocytes # 0.4 10^3/uL (0.8-4.8); Lymphocytes % 2.3 %; Mean Corpuscular HGB Conc 33.8 g/dL (30-55); Mean Corpuscular Hemoglobin 29.8 pg (27-33); Mean Corpuscular Volume 88.1 fl (82-101); Mean Platelet Volume 10.9 fL (7.4-10.4); Monocytes # 0.6 10^3/uL (0.2-0.9); Monocytes % 4.3 %; Neutrophils # 12.36 10^3/uL (1.8-7.7); Neutrophils % 82.3 %; Nucleated Red Blood Cells % 0 %; Platelet Count 266 10^3/cmm (157-399); Red Blood Count 3.36 10^6/uL (3.85-5.65); Red Cell Distribution Width 16.4 % (12.1-15.1)
[2023-08-22 04:48] LABS: INR 1.23 (0.8-1.2)
[2023-08-22 05:01] LABS: Lactate (Lactic Acid level) 1.5 mmol/L (0.5-2.2)
[2023-08-22 05:02] LABS: Alanine Aminotransferase 58 U/L (0-41); Albumin Level 2.8 g/dL (3.5-5.2); Alkaline Phosphatase 87 U/L (40-130); Anion Gap 16.7 (5-19); Aspartate Amino Transferase 56 U/L (0-40); Blood Urea Nitrogen 54 mg/dL (6-20); C Reactive Protein 109.1 mg/L (0.0-4.9); Calcium 8.5 mg/dL (8.5-10.5); Carbon Dioxide 25 mmol/L (22-29); Chloride 93 mmol/L (98-107); Globulin 3.1 g/dL (1.3-4.6); Glomerular Filtration Rate 34.4 mL/min (90-130); Glucose 230 mg/dL (65-115); Magnesium 2.1 mg/dL (1.7-2.3); Osmolality Calculated 296 mOsm/kg (285-295); Phosphorus 3.2 mg/dL (2.5-4.5); Sodium 132 mmol/L (136-145); Total Bilirubin 1.7 mg/dL (0.15-1.2); Total Protein 5.9 g/dL (6.6-8.7)
[2023-08-22 05:22] LABS: Potassium 2.7 mmol/L (3.5-5.1)
[2023-08-22 05:36] LABS: Creatine Phosphokinase 81 U/L (39-308); NT Pro B Type Natriuretic Pept 6285 pg/mL (0-125); Procalcitonin 1.18 ng/mL (0-0.5)
[2023-08-22] MEDS: aspirin 81 mg EC Tablet PO (05:42)
[2023-08-22] MEDS: linezolid premix 600 MG/300 ML PREMIX 300 MG IV ×2 (05:42→17:10)
[2023-08-22] MEDS: lidocaine 1% 5 ML in potassium chloride premix 100 ML 26.25 ML IV ×2 (06:15→09:16)
--- NOTE | 2023-08-22 07:00 | XR_ITS ---
WS: [id number] XR chest 1V portable [id number] REASON FOR EXAM: sob FINDINGS: Except for the absence of nasogastric tube the chest is relatively unchanged compared to 08/21/2023. Left chest cardiac device with left subclavian vein leads to the right atrium and right ventricular a pex. Left internal jugular central venous line remains in proper position. Mild cardiomegaly. Interstitial reticular lung opacities in the lower lung brar. Blunting of the left costophrenic ang le indicative of pleural effusion. IMPRESSION: Stable abnormal chest as above.
[2023-08-22 07:35] LABS: Glucose Point of Care 278 mg/dL (70-110)
[2023-08-22 07:35] LABS: Glucose Point of Care 272 mg/dL (70-110)
--- NOTE | 2023-08-22 08:23 | P.PN_ITS ---
Subjective 2 Subjective: EXTUBATED Medications: Reviewed: Yes Vitals/I&O/Wt Last Vital Signs Temp 98.1 F 08/22/23 05:15 Pulse 80 08/22/23 06:30 Resp 20 H 08/22/23 06:30 BP 89/56 08/22/23 06:30 Pulse Ox 97 08/22/23 06:30 O2 Del Method BiPAP 08/22/23 06:30 O2 Flow Rate 3 08/21/23 15:56 FiO2 30 08/22/23 06:30 08/21/23 08/22/23 08/22/23 22:59 06:59 14:59 Intake Total 353.889 / 661.764 367.445 / 1029.209 Output Total 1925 / 1925 900 / 2825 Balance -1571.111 / -1263.236 -532.555 / -1795.791 Weight last 48 hrs Weight 128.707 kg Weight 128.707 kg Physical Exam 2 Narrative: AWAKE , ALERT NO DISTRESS Urinary Catheter Management: Burciaga: Cath Placed During This Visit: yes Reason for Continuing Indwelling Catheter: Accurate Measurement of Urinary Output in Critically Ill Patients Urinary Catheter Date of Insertion: 08/11/23 Urinary Catheter Time of Insertion: 12:38 Data 08/23/23 05:03 08/23/23 05:03 A&P Assessment and plan (1) Acute renal failure: Qualifiers: Acute renal failure type: unspecified Qualified Code(s): N17.9 - Acute kidney failure, unspecified Plan 1. Acute kidney injury, in the setting of shock, cardiac arrest. Baseline creatinine was normal in November 2022. 2. COVID, multifocal pneumonia,- Extubated 3. Hyponatremia, hypervolemic, 4. Metabolic acidosis 5. Hyperphosphatemia: recommended change tube feed to nephro, 6. History of COPD, coronary artery disease, obesity Plan: renal function improving , K low - replete , PRN IV lasix Attestations 2 Medical Necessity Statement*: [facility] Coding Level of Care Code Acute Code for Chg Fwd Diagnoses Acute renal failure, unspecified acute renal failure type N17.9 Acute renal failure type: unspecified
[2023-08-22] MEDS: insulin lispro 100 unit/1 mL SUBCUT ×4 (08:51→20:02)
[2023-08-22] MEDS: albumin 25 G/100 ML BAG 60 G IV (09:16)
[2023-08-22] MEDS: potassium chloride ER 20 mEq Tablet 40 MEQ PO (09:17)
[2023-08-22] MEDS: polyethylene glycol 3350 Pkt 17 gm PO (09:17)
[2023-08-22] MEDS: ticagrelor 90 mg Tablet PO ×2 (09:17→17:10)
[2023-08-22] MEDS: amiodarone 200 mg Tablet 400 MG PO ×2 (09:17→17:10)
[2023-08-22] MEDS: meropenem 500 MG in sodium chloride 0.9% (plus) 50 ML 100 MG IV ×2 (09:17→22:27)
[2023-08-22] MEDS: acetaminophen 325 mg Tablet 650 MG PO ×2 (10:31→20:01)
[2023-08-22 11:33] LABS: Glucose Point of Care 325 mg/dL (70-110)
[2023-08-22] MEDS: insulin glargine 100 units/1 mL 10 UNIT SUBCUT (13:14)
--- NOTE | 2023-08-22 13:55 | PM.PN ---
Subjective Subjective: Patient started following commands and was extubated yesterday successfully to 3 L Today morning he was awake and was able to communicate Pending speech therapy evaluation as well as PT OT Medications: Reviewed: Yes Vitals/I&O/Wt Last Vital Signs Temp 97.6 F 08/22/23 11:31 Pulse 83 08/22/23 12:00 Resp 21 H 08/22/23 12:00 BP 96/57 08/22/23 12:00 Pulse Ox 95 08/22/23 12:00 O2 Del Method Nasal Cannula 08/22/23 11:34 O2 Flow Rate 2 08/22/23 11:34 FiO2 30 08/22/23 08:00 08/21/23 08/22/23 08/22/23 22:59 06:59 14:59 Intake Total 403.889 / 711.764 367.445 / 1079.209 322.788 / 322.788 Output Total 1925 / 1925 900 / 2825 Balance -1521.111 / -1213.236 -532.555 / -1745.791 322.788 / 322.788 Weight last 48 hrs Weight 283 lb 12 oz Weight 283 lb 12 oz Physical Exam Narrative: General: alert, NAD HEENT: conj clear, EOMI, PERRL, mmm, Neck: supple, no meningismus Heme: no cervical LAP Respiratory: Inspection: No visible deformity of the chest wall Palpation: Trachea is mildly deviated to the right, bilateral symmetric expansion Percussion: Bilateral tympanic percussion note both anterior and posteriorly Auscultation: Bilateral clear to auscultation both anterior and posteriorly, no crackles wheezing or rhonchi Cardiovascular: rrr, nl s1s2, no mrg Abdomen: soft, nt, nd, no r/g, bs+ Extremities: pulses +, no edema, no c/c : no CVA tenderness Skin: intact, no rash MSK: no back or neck pain Neurologic: grossly intact Urinary Catheter Management: Burciaga: Cath Placed During This Visit: yes Reason for Continuing Indwelling Catheter: Accurate Measurement of Urinary Output in Critically Ill Patients Urinary Catheter Date of Insertion: 08/11/23 Urinary Catheter Time of Insertion: 12:38 Data 08/22/23 04:28 08/22/23 14:15 Other Labs: Radiology Impressions Chest CTA 08/11/23 12:49 IMPRESSION: 1. No pulmonary embolism. 2. Multifocal bilateral consolidations suspicious for multifocal pneumonia. 3. NG tube with its tip at the gastroesophageal junction, consider advancing by at least 5 centimeters. Venous Duplex 08/11/23 16:05 IMPRESSION: No evidence of deep vein thrombosis. Abdomen Ultrasound 08/13/23 08:29 IMPRESSION: 1. Hepatomegaly with fatty infiltration of the liver. 2. No gallstones are appreciated. Gallbladder wall thickening. This is likely related to abdominal ascites. Laboratory Results WBC 15.00 10^3/uL (3.29-11.43) H 08/22/23 04:28 Corrected WBC Cancelled 08/12/23 04:50 RBC 3.36 10^6/uL (3.85-5.65) L 08/22/23 04:28 Hgb 10.00 g/dL (11.27-16.99) L 08/22/23 04:28 Hct 29.6 % (37-53) L 08/22/23 04:28 MCV 88.1 fl (82-101) 08/22/23 04:28 MCH 29.8 pg (27-33) 08/22/23 04:28 MCHC 33.8 g/dL (30-55) 08/22/23 04:28 RDW 16.4 % (12.1-15.1) H 08/22/23 04:28 Plt Count 266 10^3/cmm (157-399) 08/22/23 04:28 MPV 10.9 fL (7.4-10.4) H 08/22/23 04:28 Gran % Cancelled 08/12/23 04:50 Neut % (Auto) 82.3 % 08/22/23 04:28 Lymph % (Auto) 2.3 % 08/22/23 04:28 [place] % (Auto) 4.3 % 08/22/23 04:28 Eos % (Auto) 9.5 % 08/22/23 04:28 Baso % (Auto) 0.5 % 08/22/23 04:28 Neut # (Auto) 12.36 10^3/uL (1.8-7.7) H 08/22/23 04:28 Lymph # (Auto) 0.4 10^3/uL (0.8-4.8) L 08/22/23 04:28 [place] # (Auto) 0.6 10^3/uL (0.2-0.9) 08/22/23 04:28 Eos # (Auto) 1.4 10^3/uL (0.0-0.8) H 08/22/23 04:28 Baso # (Auto) 0.1 10^3/uL (0.0-0.1) 08/22/23 04:28 Absolute Gran (auto) Cancelled 08/12/23 04:50 Nucleated RBC % (auto) 0 % 08/22/23 04:28 Nucleated RBCs # 0.0 /100WBC 08/22/23 04:28 PT 15.90 SECONDS (12.1-14.9) H 08/22/23 04:28 INR 1.23 (0.8-1.2) H 08/22/23 04:28 APTT 54.0 SECONDS (23.9-36.7) H 08/18/23 01:07 Fibrinogen 286 mg/dL (174-498) 08/18/23 01:07 Fibrin Degrad Products 80 mcg/mL (LESS THAN 5) H 08/18/23 01:23 D-Dimer >= 20.00 ug/mLFEU (0-0.59) H 08/18/23 01:07 Specimen Type Arterial 08/22/23 04:09 Sample Site Radial, left 08/22/23 04:09 ABG pH 7.48 (7.35-7.45) H 08/22/23 04:09 ABG pCO2 37.5 mmHg (35-45) 08/22/23 04:09 ABG pO2 117.0 mmHg (80.0-100.0) H 08/22/23 04:09 ABG PO2/FiO2 Ratio 0 08/22/23 04:09 ABG HCO3 28.0 mmol/L (22-26) H 08/22/23 04:09 ABG O2 Saturation 96.3 08/12/23 13:00 ABG Base Excess 4.3 mmol/L (-2.0-2.0) H 08/22/23 04:09 Jj Test Pos 08/22/23 04:09 A-a O2 Gradient 34.6 mmHg (5-10) H 08/12/23 13:00 Hematocrit 32.0 % (42-52) L 08/22/23 04:09 Hgb O2 Saturation 95.1 % (95-100) 08/12/23 13:00 Carboxyhemoglobin 0.7 %THgb (0.4-20.1) 08/12/23 13:00 Methemoglobin 0.5 % (0.4-1.5) 08/12/23 13:00 Total Hemoglobin 14.6 g/dL (14-18) 08/12/23 13:00 Sodium 123.0 mmol/L (131-143) L 08/12/23 13:00 Potassium 5.3 mmol/L (3.5-5.0) H 08/12/23 13:00 Glucose 385.0 mg/dL (70-115) H 08/12/23 13:00 Ionized Calcium 1.0 mmol/L (1.1-1.4) L 08/12/23 13:00 O2 Delivery Device Bipap 08/22/23 04:09 FiO2 30.0 % 08/22/23 04:09 Tidal Volume 0.45 08/21/23 04:52 PEEP 8.0 cmH20 08/21/23 04:52 CPAP 10.0 cmH20 08/15/23 04:40 Guest Service Team Leader ID John 08/22/23 04:09 Sodium 133 mmol/L (136-145) L 08/22/23 14:15 Potassium 3.5 mmol/L (3.5-5.1) 08/22/23 14:15 Chloride 94 mmol/L (98-107) L 08/22/23 14:15 Carbon Dioxide 29 mmol/L (22-29) 08/22/23 14:15 Anion Gap 13.5 (5-19) 08/22/23 14:15 BUN 52 mg/dL (6-20) H 08/22/23 14:15 Creatinine 1.9 mg/dL (0.7-1.2) H 08/22/23 14:15 GFR Calculation 36.5 mL/min (90-130) L 08/22/23 14:15 Glucose 315 mg/dL (65-115) H 08/22/23 14:15 POC Glucose 266 mg/dL (70-110) H 08/22/23 16:47 Estimat Average Glucose 183 08/11/23 12:39 Hemoglobin A1c 8.0 % (4.0-6.0) H 08/11/23 12:39 Calculated Osmolality 302 mOsm/kg (285-295) H 08/22/23 14:15 Lactic Acid 3.1 mmol/L (0.5-2.2) H 08/11/23 15:10 Lactic Acid (Sepsis) 2.1 mmol/L (0.5-2.2) 08/11/23 00:50 Lactate 1.5 mmol/L (0.5-2.2) 08/22/23 04:28 Calcium 8.5 mg/dL (8.5-10.5) 08/22/23 14:15 Phosphorus 3.2 mg/dL (2.5-4.5) 08/22/23 04:28 Magnesium 2.1 mg/dL (1.7-2.3) 08/22/23 04:28 Total Bilirubin 1.7 mg/dL (0.15-1.2) H 08/22/23 04:28 Direct Bilirubin 3.20 mg/dL (0.00-0.30) H 08/13/23 05:43 GGT 58 U/L (8-61) 08/13/23 05:43 AST 56 U/L (0-40) H 08/22/23 04:28 ALT 58 U/L (0-41) H 08/22/23 04:28 Alkaline Phosphatase 87 U/L (40-130) 08/22/23 04:28 Creatine Kinase 81 U/L (39-308) 08/22/23 04:28 Troponin T Baseline 52 ng/L (0-15) H 08/19/23 12:53 Troponin T 120 Minute 54.74 ng/L (0-15) H 08/19/23 15:41 Delta Troponin T 2.74 ABS# (0-10) 08/19/23 15:41 Troponin T Hi Sens 6Hr 47.01 ng/L (0-15) H 08/19/23 19:33 Troponin T Hi Sens 6Hr Delta -4.99 ng/L (0-12) L 08/19/23 19:33 C-Reactive Protein 109.1 mg/L (0.0-4.9) H 08/22/23 04:28 NT-Pro-B Natriuret Pep 6285 pg/mL (0-125) H 08/22/23 04:28 Total Protein 5.9 g/dL (6.6-8.7) L 08/22/23 04:28 Albumin 2.8 g/dL (3.5-5.2) L 08/22/23 04:28 Globulin 3.1 g/dL (1.3-4.6) 08/22/23 04:28 Triglycerides 91 mg/dL (0-150) 08/11/23 12:39 Cholesterol 132 mg/dL (0-200) 08/11/23 12:39 LDL Cholesterol, Calc 70 mg/dL (50-129) 08/11/23 12:39 HDL Cholesterol 44 mg/dL (60-100) L 08/11/23 12:39 LDL/HDL Ratio 1.59 RATIO (0.00-3.22) 08/11/23 12:39 Cholesterol/HDL Ratio 3.00 mg/dL (1.0-5.00) 08/11/23 12:39 Amylase 161 U/L (28-100) H 08/13/23 05:43 Lipase 175 U/L (13-60) H 08/13/23 05:43 Procalcitonin 1.18 ng/mL (0-0.5) H 08/22/23 04:28 TSH 9.60 uIU/mL (0.27-4.20) H 08/22/23 04:28 Free T4 0.75 ng/dL (0.82-1.77) L 08/22/23 04:28 Free T3 1.0 PG/ML (2.0-4.4) L 08/22/23 04:28 Urine Color Brown (Yellow) A 08/20/23 18:07 Urine Appearance Cloudy (CLEAR) A 08/20/23 18:07 Urine pH 5 (5-7) 08/20/23 18:07 Ur Specific [place] 1.015 (1.005-1.030) 08/20/23 18:07 Urine Protein 1+ (Negative) H 08/20/23 18:07 Urine Glucose (UA) 4+ (Normal) H 08/20/23 18:07 Urine Ketones 1+ (Negative) H 08/20/23 18:07 Urine Blood 3+ (Negative) H 08/20/23 18:07 Urine Nitrate Negative (Negative) 08/20/23 18:07 Urine Bilirubin Neg (Negative) 08/20/23 18:07 Urine Urobilinogen Norm mg/dL (Negative) 08/20/23 18:07 Ur Leukocyte Esterase Trace (Negative) H 08/20/23 18:07 Urine RBC >100 /hpf (0-2) H 08/20/23 18:07 Urine WBC 5-10 /hpf (0-5) H 08/20/23 18:07 Ur Squamous Epith Cells 0-4 /hpf (0-5) H 08/20/23 18:07 Amorphous Sediment 2+ /hpf 08/20/23 18:07 Urine Bacteria 1+ /hpf (NONE) H 08/20/23 18:07 Hyaline Casts 0-4 /lpf H 08/20/23 18:07 Fine Granular Casts 0-4 /lpf H 08/20/23 18:07 Urine Mucus 2+ /hpf 08/20/23 18:07 Nasal Influ A H1 2008 PCR Cancelled 08/11/23 05:22 Random Vancomycin 32.3 ug/mL (20.0-40.0) 08/19/23 06:35 Serum Ketones Negative (Negative) 08/11/23 12:39 Adenovirus (PCR) Not detected (NOT DETECT) 08/20/23 18:18 C. pneumoniae DNA (PCR) Not detected (NOT DETECT) 08/20/23 18:18 Coronavirus 229E (PCR) Not detected (NOT DETECT) 08/20/23 18:18 Hep Bs Antigen Non-reactive (Nonreactive) 08/12/23 17:40 Hep Bs Antibody 22.4 (11.5-1000) 08/12/23 17:40 Hep B Core Total Ab Non-reactive (Nonreactive) 08/12/23 17:40 Hepatitis C Antibody Non-reactive (Nonreactive) 08/12/23 17:40 Human Metapneumovir PCR Not detected (NOT DETECT) 08/20/23 18:18 Influenza A (H1) PCR Not detected (NOT DETECT) 08/20/23 18:18 Influ A (H1/09) PCR Not detected (NOT DETECT) 08/20/23 18:18 Influenza A (H3) PCR Not detected (NOT DETECT) 08/20/23 18:18 Influenza Type A Ag negative (Negative) 08/12/23 06:00 Influenza Type A (PCR) Not detected (NOT DETECT) 08/20/23 18:18 Influenza Type B Ag negative (Negative) 08/12/23 06:00 Influenza Type B (PCR) Not detected (NOT DETECT) 08/20/23 18:18 M. pneumoniae (PCR) Not detected (NOT DETECT) 08/20/23 18:18 Parainfluenza 1 (PCR) Not detected (NOT DETECT) 08/20/23 18:18 Parainfluenza 2 (PCR) Not detected (NOT DETECT) 08/20/23 18:18 Parainfluenza 3 (PCR) Not detected (NOT DETECT) 08/20/23 18:18 Parainfluenza 4 (PCR) Not detected (NOT DETECT) 08/20/23 18:18 RSV Type A (PCR) Not detected (NOT DETECT) 08/20/23 18:18 RSV Type B (PCR) Not detected (NOT DETECT) 08/20/23 18:18 Entero/Rhino (PCR) Not detected (NOT DETECT) 08/20/23 18:18 SARS-CoV-2 (PCR) Detected (NOT DETECT) A 08/20/23 18:18 SARS-CoV-2 Ag (Rapid) positive (Negative) H 08/12/23 06:00 Micro: Microbiology 08/20/23 18:07 Urine Culture - Preliminary Urine Catheterized 08/16/23 12:15 Blood Culture - Final Blood 08/16/23 12:40 Blood Culture - Final Blood A&P Assessment and plan (1) Encephalopathy acute: (2) Rhabdomyolysis: (3) CHF (congestive heart failure): (4) Ischemic cardiomyopathy: (5) Systolic CHF, acute: (6) Implantable cardioverter-defibrillator (ICD) in situ: (7) Diabetes: (8) 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 2 diabetes mellitus: (9) Acute renal failure: Qualifiers: Acute renal failure type: unspecified Qualified Code(s): N17.9 - Acute kidney failure, unspecified (10) COPD (chronic obstructive pulmonary disease): (11) Acute respiratory failure: Qualifiers: Respiratory failure complication: hypoxia Qualified Code(s): J96.01 - Acute respiratory failure with hypoxia (12) Staphylococcus aureus pneumonia: (13) Multifocal pneumonia: (14) Pneumonia due to COVID-19 virus: Plan # Admitted for multifocal pneumonia-sputum cultures positive for Staph aureus # COVID PCR positive-acute hypoxic respiratory failure #? Ischemic encephalopathy given cardiac arrest #? Uremic encephalopathy -Off sedation for more than 72 hours-mentation improved-extubated successfully to 3 L nasal cannula; BiPAP at nighttime -He is on Zyvox, meropenem -Completed remdesivir and Decadron. -CT head did not show any acute changes # CAPRI on CKD in patient with underlying diabetes -Urine output picking up-currently hemodialysis on hold -Renal on board -Will monitor urine output/electrolytes and continue hemodialysis when feasible # Underlying ischemic heart disease and an implantable ICD # A-fib RVR -On amiodarone drip -He is on aspirin/Lipitor/Brilinta/Eliquis # Diabetes mellitus -Uncontrolled sugars-he is on scale coverage-started on insulin Lantus -Monitor sugars closely Attestations Medical Necessity Statement*: Patient was extubated successfully yesterday Need speech therapy evaluation and aggressive physical therapy If he remains clinically stable or improving-he can be moved out of ICU in the next 24 to 48 hours Time Spent in Patient Care: Greater than 35 minutes (>than 50% of time spent in counselling and/or direct pt care on unit). Critical Care Time: This patient has a high probability of clinically significant, sudden or life threatening deterioration of the patient's (pulmonary, cardiac, renal, neurological) systems required my full, direct attention, the highest level of physician preparedness for urgent intervention and personal management. I managed/supervised life or organ supporting interventions that required frequent physician assessment. I devoted my full attention in the ICU to the direct care of this patient for the period of time indicated above. Time I spent with family or surrogate(s) is included only if the patient was incapable of providing necessary information or participating in decision making. This time includes the following services provided: Telemetry review Mechanical Ventilation Hemodynamic interpretation, assessment and management Review and interpretation of CXR Review and interpretation of lab values Review and interpretation of microbiologic data and culture results Review of medications and administration Review and interpretation of Nutrition requirements and management Discussion of management with other consultants and services Clinical update to family members [x] Data and vital sign review and interpretation [x] Patient assessment, examination and intervention [x] Documentation [x] Medication orders and management Critical Care Time (min): 45 Coding Level of Care Code Acute Code for Chg Fwd Diagnoses Encephalopathy acute G93.40 Rhabdomyolysis M62.82 Acute on chronic systolic congestive heart failure I50.9 Ischemic cardiomyopathy I25.5 Systolic CHF, acute I50.21 Implantable cardioverter-defibrillator (ICD) in situ Z95.810 Diabetes E11.9 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 2 diabetes mellitus E11.22; N18.2 Acute renal failure, unspecified acute renal failure type N17.9 Acute renal failure type: unspecified COPD (chronic obstructive pulmonary disease) J44.9 Acute respiratory failure J96.01 Respiratory failure complication: hypoxia Staphylococcus aureus pneumonia J15.211 Multifocal pneumonia J18.9 Pneumonia due to COVID-19 virus U07.1; J12.82 Time Spent (min) 45
[2023-08-22 14:59] LABS: Anion Gap 13.5 (5-19); Blood Urea Nitrogen 52 mg/dL (6-20); Calcium 8.5 mg/dL (8.5-10.5); Carbon Dioxide 29 mmol/L (22-29); Chloride 94 mmol/L (98-107); Glomerular Filtration Rate 36.5 mL/min (90-130); Glucose 315 mg/dL (65-115); Osmolality Calculated 302 mOsm/kg (285-295); Potassium 3.5 mmol/L (3.5-5.1); Sodium 133 mmol/L (136-145)
--- NOTE | 2023-08-22 16:36 | P.PN_ITS ---
Subjective 2 Subjective: Patient was extubated to 3 L, use BiPAP throughout the night currently was seen this morning, multiple times throughout the afternoon, he is alert to person, to place, not to time he he can follow commands does have cognitive slowing, he worked with nursing staff was able to swallow his pills, with pudding, PT OT has been ordered, speech therapy is ordered, spoke to patient's mother, plan is to have PT OT evaluate him speech therapy, will continue antibiotics, will have infectious disease weigh in about his staff blood in his bacteremia, in terms of IV antibiotics and duration, I will diurese him today, Vitals/I&O/Wt Last Vital Signs Temp 97.6 F 08/22/23 11:31 Pulse 81 08/22/23 15:54 Resp 18 08/22/23 15:49 BP 116/61 08/22/23 14:00 Pulse Ox 95 08/22/23 15:53 O2 Del Method Nasal Cannula 08/22/23 15:49 O2 Flow Rate 2 08/22/23 15:49 FiO2 30 08/22/23 15:53 08/22/23 08/22/23 08/22/23 06:59 14:59 22:59 Intake Total 367.445 / 1079.209 322.788 / 322.788 Output Total 900 / 2825 Balance -532.555 / -1745.791 322.788 / 322.788 Weight last 48 hrs Weight 128.707 kg Weight 128.707 kg Physical Exam 2 Const: COMMON NORMALS: no acute distress EXAM LIMITATIONS: altered mental status ORIENTATION/CONSCIOUSNESS: Yes awake, Yes oriented to person and Yes oriented to place; not oriented to time Resp: COMMON NORMALS: normal respiratory effort, No retractions, No use of accessory muscles and clear to auscultation bilaterally AUSCULTATION: clear to auscultation bilaterally Cardio: COMMON NORMALS: regular rate, regular rhythm, S1 normal heart sound present and S2 normal heart sound present RATE: regular rate RHYTHM: r egular rhythm HEART SOUNDS: S1 normal heart sound present and S2 normal heart sound present GI: COMMON NORMALS: Normal to inspection, nondistended, normoactive bowel sounds present and non-tender Extremity: COMMON NORMALS: no pedal edema Neuro: SENSORIUM/ORIENTATION: Yes oriented to person, Yes oriented to place and No oriented to time Urinary Catheter Management: Burciaga: Cath Placed During This Visit: yes Reason for Continuing Indwelling Catheter: Accurate Measurement of Urinary Output in Critically Ill Patients Urinary Catheter Date of Insertion: 08/11/23 Urinary Catheter Time of Insertion: 12:38 Data 08/22/23 04:28 08/22/23 14:15 Micro: Microbiology 08/20/23 18:07 Urine Culture - Preliminary Urine Catheterized 08/16/23 12:15 Blood Culture - Final Blood 08/16/23 12:40 Blood Culture - Final Blood A&P Assessment and plan (1) Acute encephalopathy: (2) Pneumonia due to COVID-19 virus: (3) Multifocal pneumonia: (4) Acute renal failure: Qualifiers: Acute renal failure type: unspecified Qualified Code(s): N17.9 - Acute kidney failure, unspecified (5) Septic shock: (6) Multiorgan failure: (7) Acute hypoxic respiratory failure: (8) V-tach: (9) Shock: (10) NSTEMI (non-ST elevated myocardial infarction): (11) CAPRI (acute kidney injury): (12) 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 2 diabetes mellitus: (13) Morbid obesity: (14) CAD (coronary artery disease): (15) ICD (implantable cardioverter-defibrillator) in place: (16) Sustained ventricular tachycardia: (17) CHF (congestive heart failure): (18) Ischemic cardiomyopathy: (19) Systolic CHF, acute: (20) COPD (chronic obstructive pulmonary disease): (21) Obstructive sleep apnea: (22) Tobacco abuse: (23) Metabolic acidosis: (24) Lactic acidosis: (25) Hyperkalemia: (26) Hyponatremia: (27) Goals of care, counseling/discussion: (28) Staphylococcus aureus pneumonia: (29) Rhabdomyolysis: (30) Shock liver: (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 Likely component of hyponatremia, uremia, sepsis ? Some component related to sedating medications such as Versed, -concerns for anoxic brain injury, ?continue neurochecks, ? Monitor mentation closely, ? CT of the head IMPRESSION: 1. No evidence of intracranial hemorrhage or mass effect. 2. Mild small vessel changes with mild parenchymal volume loss. 3. Diffuse paranasal sinusitis with air-fluid levels. 4. No acute intracranial findings. -EEG -neurology consulted Ventricular tachycardia ? Status post cardioversion, Versed, fentanyl, -Cardiology consulted A-fib with RVR -Seen on telemetry -On po amiodarone -start eliquis tonight Hyperglycemia with concern for HHS, increased anion gap 24.7,resolved ? on subcut insulin ? Monitor blood sugars ? Monitor anion gap, ? Monitor potassium Shock liver, resolving ? Likely sec to septic shock ?continue to monitor closely NSTEMI -According to family, coronary angiography done at the [facility], was within normal limits, stents no significant obstruction, no intervention required he also had a pacemaker check about a month ago which was within normal limits -Serial EKGs, starting troponins, telemetry monitoring, ? Aspirin, statin, Brilinta ?cardiac echo ? Completed 48 hours of heparin drip, switch to subcu heparin ?cardiology consulted Acute hypoxic respiratory failure ? Likely secondary to COVID-19 pneumonia, multifocal bacterial pneumonia, Staph aureus pneumonia ? Some component related to systolic CHF, fluid overload ? Plan -Monitor respiratory status closely, ? Continue zyvox ? Continue meropenem ? Completed remdesivir, ? Follow blood cultures, sputum cultures ? Subcu heparin drip as above, ?extubated -on nasal cannula -bipap during the night ? , Precedex for sedation, -Pulmonary consulted Gram-positive bacteremia, staph lundgensus ? Continue Zyvox -Repeat blood cultures negative so far COVID-19 pneumonia, ? completed remdesivir, ? completed steroids Multifocal bacterial pneumonia, Staph aureus positive sputum cultures ? As above Septic shock, resolved -COVID-19, dialysis, currently on 9 of levophed ? Currently on Levophed ? Off vasopressin ? off epinephrine drip ? Scheduled albumin ? Follow cultures Acute renal failure ? Likely secondary to sepsis, septic shock, COVID-19 ? Consulted nephrology, ? dialysis catheter placement, -Issues with CRRT machine ? Monitor urine output, lackluster for the last 24-48 hrs. ? Plan on diureses Metabolic acidosis resolved ? Likely secondary to sepsis, septic shock, acute renal failure, next Lactic acidosis resolved ? Likely sec to sepsis, Hyperkalemia, resolving ? Status post D50, insulin, calcium gluconate Type 2 diabetes mellitus, blood sugars remain uncontrolled, low-dose Lantus, COPD, no active wheezing, DO NOT INTUBATE, okay with CPR, drugs per ACLS ? Protonix for GI prophylaxis, ? Heparin for DVT prophylaxis, ? Prognosis guarded, status stable -Plan for today, IV Lasix, PT OT, speech therapy eval, monitor blood sugars closely, continue antibiotics, switch to Eliquis, check TSH, T3, T4, consider IV levothyroxine Attestations 2 Medical Necessity Statement*: Patient requires hospitalization for respiratory failure Staph aureus pneumonia, encephalopathy, staph largeness bacteremia Diagnoses Acute encephalopathy G93.40 Pneumonia due to COVID-19 virus U07.1; J12.82 Multifocal pneumonia J18.9 Acute renal failure, unspecified acute renal failure type N17.9 Acute renal failure type: unspecified Septic shock A41.9; R65.21 Multiorgan failure Acute hypoxic respiratory failure J96.01 V-tach I47.20 Shock R57.9 NSTEMI (non-ST elevated myocardial infarction) I21.4 CAPRI (acute kidney injury) N17.9 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 2 diabetes mellitus E11.22; N18.2 Morbid obesity E66.01 Coronary artery disease involving [place] coronary artery of [place] heart without angina pectoris I25.10 ICD (implantable cardioverter-defibrillator) in place Z95.810 Sustained ventricular tachycardia I47.20 Acute on chronic systolic congestive heart failure I50.9 Ischemic cardiomyopathy I25.5 Systolic CHF, acute I50.21 COPD (chronic obstructive pulmonary disease) J44.9 Obstructive sleep apnea G47.33 Tobacco abuse Z72.0 Metabolic acidosis E87.20 Lactic acidosis E87.20 Hyperkalemia E87.5 Hyponatremia E87.1 Goals of care, counseling/discussion Z71.89 Staphylococcus aureus pneumonia J15.211 Rhabdomyolysis M62.82 Shock liver K72.00 HHS (hypothenar hammer syndrome) I73.89 Gram-positive bacteremia R78.81 Uremia N19
[2023-08-22 17:01] LABS: Glucose Point of Care 266 mg/dL (70-110)
[2023-08-22] MEDS: pantoprazole 40 mg SDV IVP (17:03)
[2023-08-22] MEDS: atorvastatin 40 mg Tablet 80 MG PO (17:10)
[2023-08-22 17:17] LABS: Free T4 Free Thyroxine 0.75 ng/dL (0.82-1.77)
--- NOTE | 2023-08-22 18:51 | PC.SLP ---
The patient indicated that he was feeling sick to his stomach and did not want to try any oral intake. POWER SHEAR OPERATOR will check back with the patient tomorrow.
[2023-08-22] MEDS: AA-Dex 5%-20% w/Lytes 1,000 ML 83 ML IV (19:22)
[2023-08-22 19:58] LABS: Glucose Point of Care 290 mg/dL (70-110)
[2023-08-22] MEDS: apixaban 5 mg Tablet PO (20:01)
[2023-08-22] MEDS: FUROsemide 10 mg/mL SDV 4mL 40 MG IVP (20:02)
[2023-08-23] VITALS (56 sets, daily range): BP systolic 84–145; BP diastolic 47–90; PULSE 69–97; RESP 8–29; TEMP 36.3–37.1; O2SAT 90–99
[2023-08-23] MEDS: ipratropium-albuterol 3 mL Neb INHALATION ×5 (04:01→20:16)
[2023-08-23 05:58] LABS: Basophils # 0.1 10^3/uL (0.0-0.1); Basophils % 0.5 %; Eosinophils # 1.1 10^3/uL (0.0-0.8); Eosinophils % 11.3 %; Hematocrit 31.4 % (37-53); Lymphocytes # 0.3 10^3/uL (0.8-4.8); Lymphocytes % 2.7 %; Mean Corpuscular HGB Conc 32.5 g/dL (30-55); Mean Corpuscular Hemoglobin 29.1 pg (27-33); Mean Corpuscular Volume 89.7 fl (82-101); Monocytes # 0.6 10^3/uL (0.2-0.9); Neutrophils # 7.98 10^3/uL (1.8-7.7); Nucleated Red Blood Cells % 0 %; Platelet Count 259 10^3/cmm (157-399); Red Cell Distribution Width 16.6 % (12.1-15.1)
[2023-08-23] MEDS: linezolid premix 600 MG/300 ML PREMIX 300 MG IV (06:02)
[2023-08-23] MEDS: levothyroxine 50 mcg Tablet PO (06:03)
[2023-08-23] MEDS: aspirin 81 mg EC Tablet PO (06:03)
[2023-08-23] MEDS: insulin glargine 100 units/1 mL 10 UNIT SUBCUT (06:03)
[2023-08-23 06:06] LABS: Glucose Point of Care 349 mg/dL (70-110)
[2023-08-23 06:13] LABS: INR 1.29 (0.8-1.2)
[2023-08-23 06:20] LABS: Alanine Aminotransferase 49 U/L (0-41); Albumin Level 2.9 g/dL (3.5-5.2); Alkaline Phosphatase 94 U/L (40-130); Aspartate Amino Transferase 37 U/L (0-40); Blood Urea Nitrogen 54 mg/dL (6-20); C Reactive Protein 80.5 mg/L (0.0-4.9); Calcium 8.7 mg/dL (8.5-10.5); Carbon Dioxide 26 mmol/L (22-29); Chloride 95 mmol/L (98-107); Globulin 3.3 g/dL (1.3-4.6); Glomerular Filtration Rate 44.5 mL/min (90-130); Glucose 320 mg/dL (65-115); Magnesium 2.2 mg/dL (1.7-2.3); Osmolality Calculated 305 mOsm/kg (285-295); Sodium 134 mmol/L (136-145); Total Bilirubin 1.1 mg/dL (0.15-1.2); Total Protein 6.2 g/dL (6.6-8.7)
[2023-08-23 06:25] LABS: Anion Gap 16.5 (5-19); Potassium 3.5 mmol/L (3.5-5.1)
[2023-08-23 06:26] LABS: NT Pro B Type Natriuretic Pept 5998 pg/mL (0-125); Procalcitonin 2.27 ng/mL (0-0.5)
[2023-08-23 06:39] LABS: Creatine Phosphokinase 51 U/L (39-308)
[2023-08-23 08:10] LABS: Glucose Point of Care 355 mg/dL (70-110)
[2023-08-23] MEDS: insulin lispro 100 unit/1 mL SUBCUT ×4 (08:26→21:35)
[2023-08-23] MEDS: FUROsemide 10 mg/mL SDV 4mL 40 MG IVP (08:43)
[2023-08-23] MEDS: albumin 25 G/100 ML BAG 60 G IV (08:43)
[2023-08-23] MEDS: apixaban 5 mg Tablet PO ×2 (08:44→21:35)
[2023-08-23] MEDS: amiodarone 200 mg Tablet 400 MG PO ×2 (08:44→17:25)
[2023-08-23] MEDS: ticagrelor 90 mg Tablet PO ×2 (08:44→17:26)
[2023-08-23] MEDS: lidocaine 1% 5 ML in potassium chloride premix 100 ML 26.25 ML IV (08:44)
[2023-08-23] MEDS: meropenem 500 MG in sodium chloride 0.9% (plus) 50 ML 100 MG IV (09:00)
[2023-08-23] MEDS: AA-Dex 5%-20% w/Lytes 1,000 ML 83 ML IV ×2 (09:17→21:35)
--- NOTE | 2023-08-23 10:04 | ECG_ITS ---
[facility] Test Date: 2023-08-23 Pat Name: Param Tejada Department: Room: ICU08 Gender: Male Air Export Coordinator: : 1965 Requested By: Willi Mcgraw Order Number: [id number] Almita MD: Juan Carlos Peña M.D. Measurements Intervals Allison Rate: 85 P: 63 AK: 173 QRS: 266 QRSD: 166 T: 75 QT: 457 QTc: 545 Interpretive Statements SINUS RHYTHM WITH OCCASIONAL SUPRAVENTRICULAR PREMATURE COMPLEXES MARKED RIGHT AXIS DEVIATION [QRS AXIS > 100] RIGHT BUNDLE BRANCH BLOCK [120+ ms QRS DURATION, UPRIGHT V1, 40+ ms S IN I/aVL/V4/V5/V6] POSSIBLE ANTERIOR MYOCARDIAL INFARCTION [30 ms Q WAVE IN V3/V4, OR R < 0.2 mV IN V4], OF INDETERMINATE AGE INFERIOR MYOCARDIAL INFARCTION [40+ ms Q WAVE AND/OR ST/T ABNORMALITY IN II/aVF], OF INDETERMINATE AGE Compared to ECG 08/19/2023 13:57:34 Right bundle-branch block now present Atrial abnormality no longer present Myocardial infarct finding still present Electronically Signed On 08-23-2023 13:43:48 SLICING MACHINE TENDER by Juan Carlos Peña M.D. [email or web address]
--- NOTE | 2023-08-23 10:44 | PC.SOCIAL ---
IMM Update pg 2 of IMM updated and reviewed w/ patient. Copy provided and copy dated, initialed and placed in chart.
--- NOTE | 2023-08-23 11:43 | PC.PHAR ---
D[facility] Initial Dosing Patient Information Sex M M/F Last Name Terrell AGE 58 years First Name Param Ht 65 inches : 1965 ABW 130 kg Location: ICU-8 IBW 61.5 kg If loading dose given: DW 88.9 kg Loading DOSE: 1750 mg SCr 1.6 mg/dl This Dose = 19.7 mg/kg CrCl 43.2 ml/min 1st dose Cmax: 25.7 mcg/ml Vd 66.675 liters Time elapsed: 17.0 hrs Ke 0.040 hrs-1 Serum Conc. = 13.0 mcg/ml t1/2 17 hrs Hrs until 20 mcg/ml 7.2 hrs Hrs until 15 mcg/ml 14.4 hours Hrs until 10 mcg/ml 24.5 hours Dose Tau (Freq) Levels expected Standard 1500 24 Cmax 34.9 Targets 16.87 25.8 Cpeak 33.5 25 to 40 mg/kg hours Cmin 14.4 10 to 20
--- NOTE | 2023-08-23 12:17 | P.CONIM_ITS ---
Providers/Reason For Consult 2 Consulting Physician/Specialty*: Gabrielle Marr MD/ Infectious Disease Reason for Consult*: Staph ludienensis bacteremia Requesting Physician: Willi Mcgraw MD Attending Physician: Willi Mcgraw MD Primary Care Provider: Karla Ryan MD History of Present Illness History of Present Illness Param Tejada is a 58 year old male with past medical history of diabetes, obesity, coronary artery disease admitted to the hospital on 08/11 with acute respiratory distress as a result of B/L multifocal pneumonia which lead to intubation and mechanical ventilatory support. Hospital course has been notable for prolonged admission, prolonged respiratory support, extubated on August 21, 2023. He is currently on TPN. Continues to be weak and frail. Diagnostics during admission have been notable for B/L multifocal pneumonia with sputum cx revealing MSSA. From 08/11, blood cx, 2 sets with Staph Yennyiensis. Patient unable to participate in long conversation due to being deconditioned from prolonged hospital stay. Currently on treatment with meropenem and linezolid. Previosuly on vancomycin but discontinued due to CAPRI and high vanc troughs Review of Systems 2 General: Reports: ROS unobtainable due to medical condition Medications/Allergies Home Medications Medication Instructions Recorded Confirmed Last Taken Type acetaminophen 500 mg tablet 1,000 mg PO TID PRN Pain 11/29/20 08/13/23 Unknown History aspirin 81 mg tablet,delayed 81 mg PO QAM 11/29/20 08/13/23 01/31/22 09:00 History release atorvastatin 80 mg tablet 80 mg PO QPM 11/29/20 08/13/23 01/30/22 History ipratropium 0.5 mg-albuterol 3 mg 3 ml inhalation QID PRN Shortness 11/29/20 08/13/23 Unknown History (2.5 mg base)/3 mL nebulization Of Breath soln methocarbamol 500 mg tablet See Rx Instructions .Route .COMPLEX 11/29/20 08/13/23 01/30/22 History nitroglycerin 0.4 mg sublingual 0.4 mg sublingual Q5M PRN Chest 11/29/20 08/13/23 Unknown History tablet Pain ticagrelor 90 mg tablet (Brilinta) 90 mg PO BID 11/29/20 08/13/23 01/31/22 09:00 History tiotropium bromide 2.5 2 puff inhalation DAILY 11/29/20 08/13/23 08/04/21 History mcg/actuation mist for inhalation (Spiriva Respimat) tramadol 50 mg tablet 50 - 100 mg PO TID PRN Pain 11/29/20 08/13/23 Unknown History albuterol sulfate 90 mcg/actuation 2 puff inhalation QID PRN 12/12/21 08/13/23 Unknown History aerosol inhaler Shortness Of Breath fluticasone 250 mcg-salmeterol 50 1 inh inhalation BID 01/25/22 08/13/23 Unknown History mcg/dose blistr powdr for inhalation (Wixela Inhub) naloxone 4 mg/actuation nasal spray 4 mg intranasal Q2M PRN overdose 01/31/22 08/13/23 Unknown History ketoconazole 2 % topical cream 1 applic topical BID #60 grams 04/24/22 08/13/23 Unknown Rx miconazole nitrate 2 % topical 1 applic topical DAILY #71 grams 04/24/22 08/13/23 Unknown Rx powder (Zeasorb AF) metoprolol succinate 25 mg 12.5 mg (1/2 x 25 mg) PO DAILY #45 05/18/22 08/13/23 Unknown Rx tablet,extended release 24 hr tabs potassium chloride 20 mEq 40 meq PO DAILY 05/18/22 08/13/23 Unknown History tablet,extended release blood-glucose meter,continuous #1 ea 08/23/22 08/11/23 Unknown Rx (Dexcom G6 Basket Patcher) blood-glucose transmitter (Dexcom #3 ea 08/23/22 08/11/23 Unknown Rx G6 Transmitter device) empagliflozin 25 mg tablet 25 mg PO QAM #90 tabs 08/23/22 08/13/23 Unknown Rx (Jardiance) blood-glucose sensor (Dexcom G6 #9 ea 04/19/23 08/11/23 Unknown Rx Sensor device) clotrimazole 1 % topical cream 1 applic topical BID 08/13/23 08/13/23 Unknown History diclofenac sodium 1 % topical gel See Rx Instructions .Route 08/13/23 08/13/23 Unknown History .COMPLEX PRN Pain fluconazole 200 mg tablet See Rx Instructions .Route .COMPLEX 08/13/23 08/13/23 Unknown History furosemide 20 mg tablet 20 mg PO BID 08/13/23 08/13/23 Unknown History gabapentin 300 mg capsule 600 mg PO Q8H PRN Pain 08/13/23 08/13/23 Unknown History insulin aspart U-100 100 unit/mL See Rx Instructions .Route .COMPLEX 08/13/23 08/13/23 Unknown History (3 mL) subcutaneous pen (Novolog FlexPen U-100 Insulin aspart) levothyroxine 50 mcg tablet 50 mcg PO DAILY 08/13/23 08/13/23 Unknown History lidocaine 5 % topical patch See Rx Instructions .Route .COMPLEX 08/13/23 08/13/23 Unknown History losartan 50 mg tablet 25 mg PO DAILY 08/13/23 08/13/23 Unknown History metformin 500 mg tablet,extended 500 mg PO BID 08/13/23 08/13/23 Unknown History release 24 hr metolazone 2.5 mg tablet 2.5 mg PO EVERY OTHER DAY 08/13/23 08/13/23 Unknown History spironolactone 25 mg tablet 25 mg PO DAILY 08/13/23 08/13/23 Unknown History Allergies Allergy/AdvReac Type Severity Reaction Status Date / Time Sulfa (Sulfonamide Allergy Severe ALGY-Anaphy Verified 08/11/23 11:31 Antibiotics) laxis Current Medications Generic Name Dose Route Start Last Admin Trade Name Freq PRN Reason Stop Dose Admin Acetaminophen 650 mg 08/11/23 16:05 08/22/23 20:01 Acetaminophen 325 Mg Tablet PO 650 mg Q6H PRN Administration Mild/Mod Pain Or Temp >/= 101 Albuterol/Ipratropium 3 ml 08/11/23 16:05 08/23/23 11:09 Ipratropium-Albuterol 3 Ml Neb INHALATION 3 ml Q4H.RESPIRATORY VIRA Administration Amiodarone HCl 400 mg 08/21/23 11:00 08/23/23 08:44 Amiodarone 200 Mg Tablet PO 400 mg BID VIRA Administration Apixaban 5 mg 08/22/23 21:00 08/23/23 08:44 Apixaban 5 Mg Tablet PO 5 mg BID@0900,2100 VIRA Administration Aspirin 81 mg 08/12/23 06:00 08/23/23 06:03 Aspirin 81 Mg Ec Tablet PO 81 mg QAM VIRA Administration Atorvastatin Calcium 80 mg 08/11/23 18:00 08/22/23 17:10 Atorvastatin 40 Mg Tablet PO 80 mg QPM VIRA Administration norepinephrine 4 mg in 250 mls @ 0 mls/hr 08/11/23 12:30 08/21/23 11:00 Levophed IV 0 mcg/min .Q0M VIRA 0 mls/hr Titration Protocol Per Protocol Dexmedetomidine/Sodium Chloride 400 mcg in 100 mls @ 0 mls/hr 08/11/23 14:15 08/18/23 09:15 Precedex IV 0 mcg/kg/hr .Q0M VIRA 0 mls/hr Titration Protocol Per Protocol Meropenem 500 mg/ Sodium 50 mls @ 100 mls/hr 08/18/23 10:00 08/23/23 09:00 Chloride IV 100 mls/hr Q12H VIRA Administration Protocol Amino Acids/Electrolytes 1,000 mls @ 83 mls/hr 08/21/23 19:30 08/23/23 09:17 Clinimix E 5%-20% IV 83 mls/hr .Q12H3M VIRA Administration Protocol fat emulsions 20% 100 mls @ 8.333 mls/hr 08/21/23 19:15 08/23/23 06:20 Intralipid 20% IV Infused Q24H VIRA Infusion Insulin Glargine 10 unit 08/23/23 06:00 08/23/23 06:03 Insulin Glargine 100 Units/1 Ml SUBCUT 10 unit QAM VIRA Administration Insulin Human Lispro 0 unit 08/16/23 18:00 08/23/23 08:26 Insulin Lispro 100 Unit/1 Ml SUBCUT 14 unit WM&BEDTIME VIRA Administration Protocol Levothyroxine Sodium 50 mcg 08/23/23 06:00 08/23/23 06:03 Levothyroxine 50 Mcg Tablet PO 50 mcg QAM VIRA Administration Pantoprazole Sodium 40 mg 08/11/23 16:05 08/22/23 17:03 Pantoprazole 40 Mg Sdv IVP 40 mg Q24H VIRA Administration Ticagrelor 90 mg 08/11/23 18:00 08/23/23 08:44 Ticagrelor 90 Mg Tablet PO 90 mg BID VIRA Administration PFSH Acute 2 PFSH: Medical History Renal calculus Hypokalemia Hyponatremia Ischemic cardiomyopathy Personal history of nicotine dependence Hypertension Diabetes CHF (congestive heart failure) CAD (coronary artery disease) Hypoxia 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 2 diabetes mellitus Insulin dependent diabetes mellitus ICD (implantable cardioverter-defibrillator) in place Morbid obesity Obstructive sleep apnea Chronic hypercapnic respiratory failure Tobacco abuse COPD (chronic obstructive pulmonary disease) Ischemic cardiomyopathy Hyperlipidemia Hypertension ST elevation myocardial infarction (STEMI) of inferior wall Surgical History S/P knee replacement History of left knee replacement History of cardiac defibrillator placement History of coronary artery stent placement -hx of CAD with inferior wall PR s/p RCA stent, LAD stent Family History Father No problems noted. Mother No problems noted. Denies family history of CAD (coronary artery disease) Social History Smoking and tobacco/nicotine status: former use of tobacco/nicotine Alcohol intake: never Substance/Drug Use: never Marital status: Single Current occupational status: disabled Do you think of yourself as: Straight/Heterosexual Vitals/I&O/Wt Last Vital Signs Temp 97.4 F L 08/23/23 04:00 Pulse 85 08/23/23 11:15 Resp 18 08/23/23 11:05 BP 98/55 08/23/23 10:00 Pulse Ox 96 08/23/23 11:05 O2 Del Method Nasal Cannula 08/23/23 11:05 O2 Flow Rate 3 08/23/23 11:05 FiO2 30 08/23/23 07:21 08/22/23 08/23/23 08/23/23 22:59 06:59 14:59 Intake Total 1339.55 / 1762.338 148.437 / 6872.381 6943 / 1000 Output Total 1450 / 1450 1400 / 2850 Balance -110.45 / 312.338 -1251.563 / -266.309 1361 / 1000 Weight last 48 hrs Weight 130 kg Weight 128.707 kg Physical Exam 2 Narrative: General: Laying in ICU bed, deconditioned HEENT: PERRLA, pupils bilaterally equal and reactive, pallors not present Chest: B/L crackles at lung bases CVS: S1-S2 regular, no murmurs, no tachycardia, no gallops, no rubs Abdomen: Soft, nontender, no organomegaly, bowel sounds present Neuro: No focal deficits grossly Urinary Catheter Management: Burciaga: Cath Placed During This Visit: yes Reason for Continuing Indwelling Catheter: Accurate Measurement of Urinary Output in Critically Ill Patients Urinary Catheter Date of Insertion: 08/11/23 Urinary Catheter Time of Insertion: 12:38 Data 08/27/23 03:17 08/27/23 06:08 Micro: Microbiology 08/20/23 19:27 Blood Culture - Preliminary Blood 08/20/23 19:22 Blood Culture - Preliminary Blood 08/20/23 18:07 Urine Culture - Preliminary Urine Catheterized 08/16/23 12:15 Blood Culture - Final Blood 08/16/23 12:40 Blood Culture - Final Blood Spec #: [id number] Caitlyn: 08/20/23-1927 Status: COMP Req #: [id number] Recd: 08/20/23-[address]: Willi Mcgraw MD Src: Blood SpDesc: Ordered: Bld Culture Procedure Result Verified Site Blood Cultures ([facility]) Final 08/27/23-1435 QD SEE NOTE CULTURE, BLOOD Micro Number: [id number] Test Status: Preliminary Specimen Source: Blood set 2 Specimen Quality: Adequate Result: No growth to date. Culture is continuously monitored for a total of 120 hours incubation. A change in status will result in a phone report followed by an updated printed culture report. TRANSPORT MEDIA: Aerobic and anaerobic bottle received. THIS TEST WAS PERFORMED AT: [employer] [facility] [address] [place] [address] MEÑO READ MD CULTURE, BLOOD Micro Number: [id number] Test Status: Final Specimen Source: Blood set 2 Specimen Quality: Adequate Result: No growth after 5 days TRANSPORT MEDIA: Aerobic and anaerobic bottle received. THIS TEST WAS PERFORMED AT: [facility] [address] [employer] [address] [place] [address] MEÑO READ MD Blood Cultures ([facility]) Preliminary (changed) 08/22/23-1712 QD SEE NOTE CULTURE, BLOOD Micro Number: [id number] Test Status: Preliminary Specimen Source: Blood set 2 Specimen Quality: Adequate Result: No growth to date. Culture is continuously monitored for a total of 120 hours incubation. A change in status will result in a phone report followed by an updated printed culture report. TRANSPORT MEDIA: Aerobic and anaerobic bottle received. Spec #: [id number] Caitlyn: 08/20/23 Status: COMP Req #: [id number] Recd: 08/20/[address]: Willi Mcgraw MD Src: Blood [facility]: Ordered: Bld Culture Procedure Result Verified Site Blood Cultures ([facility]) Final 08/27/23-1435 QD SEE NOTE CULTURE, BLOOD Micro Number: [id number] Test Status: Preliminary Specimen Source: Blood set 1 Specimen Quality: Adequate Result: No growth to date. Culture is continuously monitored for a total of 120 hours incubation. A change in status will result in a phone report followed by an updated printed culture report. TRANSPORT MEDIA: Aerobic and anaerobic bottle received. THIS TEST WAS PERFORMED AT: [employer] [address] MEÑO READ MD CULTURE, BLOOD Micro Number: [id number] Test Status: Final Specimen Source: Blood set 1 Specimen Quality: Adequate Result: No growth after 5 days TRANSPORT MEDIA: Aerobic and anaerobic bottle received. THIS TEST WAS PERFORMED AT: [facility] [address] [place] [id number] MEÑO READ MD Blood Cultures ([facility]) Preliminary (changed) 08/22/23-171 QD SEE NOTE CULTURE, BLOOD Micro Number: [id number] Test Status: Preliminary Specimen Source: Blood set 1 Specimen Quality: Adequate Result: No growth to date. Culture is continuously monitored for a total of 120 hours incubation. A change in status will result in a phone report followed by an updated printed culture report. TRANSPORT MEDIA: Aerobic and anaerobic bottle received. Spec #: [id number] Caitlyn: 08/20/23 Status: COMP Req #: [id number] Recd: 08/20/[address]: Willi Mcgraw MD Src: Urine Cath SpDes: Ordered: UC Procedure Result Verified Site Urine Culture Final 08/23/23-1528 NO GROWTH AT 36-48 HOURS Urine Culture Preliminary (changed) 08/22/23-1027 NO GROWTH AT 18-24 HOURS Spec #: [id number] Caitlyn: 08/16/23 Status: COMP Req #: [id number] Recd: 08/16/[address]: Willi Mcgraw MD Src: Blood SpDesc: Ordered: Bld Culture Procedure Result Verified Site Blood Cultures ([facility]) Final 08/22/23 QD SEE NOTE CULTURE, BLOOD Micro Number: [id number] Test Status: Preliminary Specimen Source: Bld set 2 Specimen Quality: Adequate Result: No growth to date. Culture is continuously monitored for a total of 120 hours incubation. A change in status will result in a phone report followed by an updated printed culture report. TRANSPORT MEDIA: Aerobic and anaerobic bottle received. THIS TEST WAS PERFORMED AT: [employer] [place] [phone] MEÑO READ MD CULTURE, BLOOD Micro Number: [id number] Test Status: Final Specimen Source: Bld set 2 Specimen Quality: Adequate Result: No growth after 5 days TRANSPORT MEDIA: Aerobic and anaerobic bottle received. THIS TEST WAS PERFORMED AT: [facility] [employer] [place] [address] MEÑO READ MD Blood Cultures ([facility]) Preliminary (changed) 08/18/23 QD SEE NOTE CULTURE, BLOOD Micro Number: [id number] Test Status: Preliminary Specimen Source: d set 2 Specimen Quality: Adequate Result: No growth to date. Culture is continuously monitored for a total of 120 hours incubation. A change in status will result in a phone report followed by an updated printed culture report. TRANSPORT MEDIA: Aerobic and anaerobic bottle received. Spec #: [id number] Caitlyn: 08/16/23 Status: COMP Req #: [id number] Recd: 08/16/[address]: Willi Mcgraw MD Src: Blood SpDesc: Ordered: Bld Culture Procedure Result Verified Site Blood Cultures ([facility]) Final 08/22/23 QD SEE NOTE CULTURE, BLOOD Micro Number: [id number] Test Status: Preliminary Specimen Source: Bld set 1 Specimen Quality: Adequate Result: No growth to date. Culture is continuously monitored for a total of 120 hours incubation. A change in status will result in a phone report followed by an updated printed culture report. TRANSPORT MEDIA: Aerobic and anaerobic bottle received. THIS TEST WAS PERFORMED AT: [place] [address] MEÑO READ MD CULTURE, BLOOD Micro Number: [id number] Test Status: Preliminary Specimen Source: Bld set 1 =>Specimen Quality: Suboptimal Result: No growth to date. Culture is continuously monitored for a total of 120 hours incubation. A change in status will result in a phone report followed by an updated printed culture report. COMMENT: Inspection of blood culture bottles indicates that an inadequate volume of blood may have been collected for the detection of sepsis. TRANSPORT MEDIA: Aerobic and anaerobic bottle received. THIS TEST WAS PERFORMED AT: [email or web address] [address] MEÑO READ MD CULTURE, BLOOD Micro Number: [id number] Test Status: Final Specimen Source: d set 1 Specimen Quality: Suboptimal Result: No growth after 5 days COMMENT: Inspection of blood culture bottles indicates that an inadequate volume of blood may have been collected for the detection of sepsis. TRANSPORT MEDIA: Aerobic and anaerobic bottle received. THIS TEST WAS PERFORMED AT: [email or web address] [address] [address] MEÑO READ MD Blood Cultures ([facility]) Preliminary (changed) 08/18/23-904 QD SEE NOTE CULTURE, BLOOD Micro Number: [id number] Test Status: Preliminary Specimen Source: d set 1 Specimen Quality: Adequate Result: No growth to date. Culture is continuously monitored for a total of 120 hours incubation. A change in status will result in a phone report followed by an updated printed culture report. TRANSPORT MEDIA: Aerobic and anaerobic bottle received. THIS TEST WAS PERFORMED AT: [email or web address] [address] MEÑO READ MD CULTURE, BLOOD Micro Number: [id number] Test Status: Preliminary Specimen Source: Bld set 1 =>Specimen Quality: Suboptimal Result: No growth to date. Culture is continuously monitored for a total of 120 hours incubation. A change in status will result in a phone report followed by an updated printed culture report. COMMENT: Inspection of blood culture bottles indicates that an inadequate volume of blood may have been collected for the detection of sepsis. TRANSPORT MEDIA: Aerobic and anaerobic bottle received. Spec #: [id number] Caitlyn: 08/12/23-0450 Status: COMP Req #: [id number] Recd: 08/12/23-[address]: Willi Mcgraw MD Src: Blood SpDc: Ordered: Bld Culture Comments: SET 2 Procedure Result Verified Site Blood Cultures ([facility]) Final 08/15/23-1419 QD SEE NOTE CRITICAL RESULTS CALLED BY [email or web address] AND READ BACK BY [employer] @ [employer]. CULTURE, BLOOD Micro Number: [id number] Test Status: Preliminary Specimen Source: Blood Specimen Quality: Suboptimal Result: No growth to date. Culture is continuously monitored for a total of 120 hours incubation. A change in status will result in a phone report followed by an updated printed culture report. COMMENT: Inspection of blood culture bottles indicates that an inadequate volume of blood may have been collected for the detection of sepsis. TRANSPORT MEDIA: Aerobic and anaerobic bottle received. THIS TEST WAS PERFORMED AT: [employer] [place] [address] MEÑO READ MD CULTURE, BLOOD Micro Number: [id number] Test Status: Preliminary Specimen Source: Blood Specimen Quality: Suboptimal Result: Gram positive cocci in clusters isolated , from aerobic and anaerobic bottles Identification and susceptibilities to follow. COMMENT: Inspection of blood culture bottles indicates that an inadequate volume of blood may have been collected for the detection of sepsis. TRANSPORT MEDIA: Aerobic and anaerobic bottle received. THIS TEST WAS PERFORMED AT: [employer] [facility] [place] [address] MEÑO READ MD CULTURE, BLOOD Micro Number: [id number] Test Status: Preliminary Specimen Source: Blood Specimen Quality: Suboptimal Result: Presumptive Staphylococcus lugdunensis , from aerobic and anaerobic bottles Identification and susceptibilities to follow. COMMENT: Inspection of blood culture bottles indicates that an inadequate volume of blood may have been collected for the detection of sepsis. TRANSPORT MEDIA: Aerobic and anaerobic bottle received. THIS TEST WAS PERFORMED AT: [facility] [place] [address] MEÑO READ MD CULTURE, BLOOD Micro Number: [id number] Test Status: Final Specimen Source: Blood Specimen Quality: Suboptimal Result: Staphylococcus lugdunensis , from aerobic and anaerobic bottles COMMENT: Inspection of blood culture bottles indicates that an inadequate volume of blood may have been collected for the detection of sepsis. S.lugdunensis INT KEVIN CLINDAMYCIN S <=0.25 ERYTHROMYCIN S <=0.25 GENTAMICIN S <=0.5 OXACILLIN S 2 1 TETRACYCLINE S <=1 TRIMETHOPRIM/SULFA S <=10 VANCOMYCIN S <=0.5 S=Susceptible I=Intermediate R=Resistant * = Not Tested NR = Not Reported NN = See Therapy Comments THERAPY COMMENTS Note 1: Oxacillin susceptible staphylococci are susceptible to other penicillinase-stable penicillins (e.g., methicillin, nafcillin), beta- lactam/beta-lactamase inhibitor combinations, and cephems with staphylococcal indications, including cefazolin. TRANSPORT MEDIA: Aerobic and anaerobic bottle received. THIS TEST WAS PERFORMED AT: [employer] [place] [address] MEÑO READ MD Blood Cultures ([facility]) Preliminary (changed) 08/14/23-1333 QD SEE NOTE CRITICAL RESULTS CALLED BY [facility] AND READ BACK BY [employer] @ 1333. CULTURE, BLOOD Micro Number: [id number] Test Status: Preliminary Specimen Source: Blood Specimen Quality: Suboptimal Result: No growth to date. Culture is continuously monitored for a total of 120 hours incubation. A change in status will result in a phone report followed by an updated printed culture report. COMMENT: Inspection of blood culture bottles indicates that an inadequate volume of blood may have been collected for the detection of sepsis. TRANSPORT MEDIA: Aerobic and anaerobic bottle received. THIS TEST WAS PERFORMED AT: [employer] [facility] [place] [address] MEÑO READ MD CULTURE, BLOOD Micro Number: [id number] Test Status: Preliminary Specimen Source: Blood Specimen Quality: Suboptimal Result: Gram positive cocci in clusters isolated , from aerobic and anaerobic bottles Identification and susceptibilities to follow. COMMENT: Inspection of blood culture bottles indicates that an inadequate volume of blood may have been collected for the detection of sepsis. TRANSPORT MEDIA: Aerobic and anaerobic bottle received. THIS TEST WAS PERFORMED AT: [facility] [address] [facility] [place] [address] MEÑO READ MD CULTURE, BLOOD Micro Number: [id number] Test Status: Preliminary Specimen Source: Blood Specimen Quality: Suboptimal Result: Presumptive Staphylococcus lugdunensis , from aerobic and anaerobic bottles Identification and susceptibilities to follow. COMMENT: Inspection of blood culture bottles indicates that an inadequate volume of blood may have been collected for the detection of sepsis. TRANSPORT MEDIA: Aerobic and anaerobic bottle received. Spec #: [id number] Caitlyn: 08/12/23 Status: COMP Req #: [id number] Recd: 08/12/23-[address]: Willi Mcgraw MD Src: Blood SpDesc: Ordered: Bld Culture Comments: SET 1 Procedure Result Verified Site Blood Cultures ([facility]) Final 08/20/23-1548 QD SEE NOTE CRITICAL RESULTS CALLED BY [email or web address] AND READ BACK BY [employer] @ [employer] 08/14/2023. CULTURE, BLOOD Micro Number: [id number] Test Status: Preliminary Specimen Source: Blood Specimen Quality: Suboptimal Result: No growth to date. Culture is continuously monitored for a total of 120 hours incubation. A change in status will result in a phone report followed by an updated printed culture report. COMMENT: Inspection of blood culture bottles indicates that an inadequate volume of blood may have been collected for the detection of sepsis. TRANSPORT MEDIA: Aerobic and anaerobic bottle received. THIS TEST WAS PERFORMED AT: [facility] [address] [place] [address] MEÑO READ MD CULTURE, BLOOD Micro Number: [id number] Test Status: Preliminary Specimen Source: Blood Specimen Quality: Suboptimal Result: Gram positive cocci in clusters isolated , from anaerobic bottle only Identification and susceptibilities to follow. COMMENT: Inspection of blood culture bottles indicates that an inadequate volume of blood may have been collected for the detection of sepsis. TRANSPORT MEDIA: Aerobic and anaerobic bottle received. THIS TEST WAS PERFORMED AT: [facility] [address] [facility] [place] [address] MEÑO READ MD CULTURE, BLOOD Micro Number: [id number] Test Status: Preliminary Specimen Source: Blood Specimen Quality: Suboptimal Result: Staphylococcus epidermidis , from anaerobic bottle only , susceptibility test report to follow. COMMENT: Inspection of blood culture bottles indicates that an inadequate volume of blood may have been collected for the detection of sepsis. TRANSPORT MEDIA: Aerobic and anaerobic bottle received. THIS TEST WAS PERFORMED AT: [facility] [address] [place] [address] MEÑO READ MD CULTURE, BLOOD Micro Number: [id number] Test Status: Preliminary Specimen Source: Blood Specimen Quality: Suboptimal Result: Gram positive cocci in clusters isolated , from anaerobic bottle only Identification and susceptibilities to follow. COMMENT: Inspection of blood culture bottles indicates that an inadequate volume of blood may have been collected for the detection of sepsis. TRANSPORT MEDIA: Aerobic and anaerobic bottle received. THIS TEST WAS PERFORMED AT: [facility] [address] [place] [address] MEÑO READ MD CULTURE, BLOOD Micro Number: [id number] Test Status: Preliminary Specimen Source: Blood Specimen Quality: Suboptimal Result: Staphylococcus lugdunensis , from anaerobic bottle only Please see other blood culture report for susceptibility results. Comment: [id number] COMMENT: Inspection of blood culture bottles indicates that an inadequate volume of blood may have been collected for the detection of sepsis. TRANSPORT MEDIA: Aerobic and anaerobic bottle received. THIS TEST WAS PERFORMED AT: [email or web address] [address] MEÑO READ MD CULTURE, BLOOD Micro Number: [id number] Test Status: Final Specimen Source: Blood Specimen Quality: Suboptimal Result: Staphylococcus lugdunensis , from anaerobic bottle only Please see other blood culture report for susceptibility results. Comment: [id number] COMMENT: Inspection of blood culture bottles indicates that an inadequate volume of blood may have been collected for the detection of sepsis. TRANSPORT MEDIA: Aerobic and anaerobic bottle received. THIS TEST WAS PERFORMED AT: [email or web address] [address] [place] [phone] MEÑO READ MD Blood Cultures ([facility]) Preliminary (changed) 08/15/23-1419 QD SEE NOTE CRITICAL RESULTS CALLED BY [facility] AND READ BACK BY [employer] @ [employer] 08/14/2023. CULTURE, BLOOD Micro Number: [id number] Test Status: Preliminary Specimen Source: Blood Specimen Quality: Suboptimal Result: No growth to date. Culture is continuously monitored for a total of 120 hours incubation. A change in status will result in a phone report followed by an updated printed culture report. COMMENT: Inspection of blood culture bottles indicates that an inadequate volume of blood may have been collected for the detection of sepsis. TRANSPORT MEDIA: Aerobic and anaerobic bottle received. THIS TEST WAS PERFORMED AT: [facility] [address] [place], [place] [address] [place] [address] MEÑO READ MD CULTURE, BLOOD Micro Number: [id number] Test Status: Preliminary Specimen Source: Blood Specimen Quality: Suboptimal Result: Gram positive cocci in clusters isolated , from anaerobic bottle only Identification and susceptibilities to follow. COMMENT: Inspection of blood culture bottles indicates that an inadequate volume of blood may have been collected for the detection of sepsis. TRANSPORT MEDIA: Aerobic and anaerobic bottle received. THIS TEST WAS PERFORMED AT: [facility] [address] [place], [place] [address] [place] [address] MEÑO READ MD CULTURE, BLOOD Micro Number: [id number] Test Status: Preliminary Specimen Source: Blood Specimen Quality: Suboptimal Result: Staphylococcus epidermidis , from anaerobic bottle only , susceptibility test report to follow. COMMENT: Inspection of blood culture bottles indicates that an inadequate volume of blood may have been collected for the detection of sepsis. TRANSPORT MEDIA: Aerobic and anaerobic bottle received. THIS TEST WAS PERFORMED AT: [facility] [place] [address] MEÑO READ MD CULTURE, BLOOD Micro Number: [id number] Test Status: Preliminary Specimen Source: Blood Specimen Quality: Suboptimal Result: Gram positive cocci in clusters isolated , from anaerobic bottle only Identification and susceptibilities to follow. COMMENT: Inspection of blood culture bottles indicates that an inadequate volume of blood may have been collected for the detection of sepsis. TRANSPORT MEDIA: Aerobic and anaerobic bottle received. THIS TEST WAS PERFORMED AT: [email or web address]brand[facility] [place] [address] [facility] [place] [address] MEÑO READ MD CULTURE, BLOOD Micro Number: [id number] Test Status: Preliminary Specimen Source: Blood Specimen Quality: Suboptimal Result: Staphylococcus lugdunensis , from anaerobic bottle only Please see other blood culture report for susceptibility results. Comment: [id number] COMMENT: Inspection of blood culture bottles indicates that an inadequate volume of blood may have been collected for the detection of sepsis. TRANSPORT MEDIA: Aerobic and anaerobic bottle received. THIS TEST WAS PERFORMED AT: [email or web address] [facility] [place] [address] MEÑO READ MD Blood Cultures ([facility]) Preliminary (changed) 08/15/23-1344 QD SEE NOTE CRITICAL RESULTS CALLED BY [facility] AND READ BACK BY [facility] @ 1333 08/14/2023. CULTURE, BLOOD Micro Number: [id number] Test Status: Preliminary Specimen Source: Blood Specimen Quality: Suboptimal Result: No growth to date. Culture is continuously monitored for a total of 120 hours incubation. A change in status will result in a phone report followed by an updated printed culture report. COMMENT: Inspection of blood culture bottles indicates that an inadequate volume of blood may have been collected for the detection of sepsis. TRANSPORT MEDIA: Aerobic and anaerobic bottle received. THIS TEST WAS PERFORMED AT: [place] [address] MEÑO READ MD CULTURE, BLOOD Micro Number: [id number] Test Status: Preliminary Specimen Source: Blood Specimen Quality: Suboptimal Result: Gram positive cocci in clusters isolated , from anaerobic bottle only Identification and susceptibilities to follow. COMMENT: Inspection of blood culture bottles indicates that an inadequate volume of blood may have been collected for the detection of sepsis. TRANSPORT MEDIA: Aerobic and anaerobic bottle received. THIS TEST WAS PERFORMED AT: [facility] [place] [address] MEÑO READ MD CULTURE, BLOOD Micro Number: [id number] Test Status: Preliminary Specimen Source: Blood Specimen Quality: Suboptimal Result: Staphylococcus epidermidis , from anaerobic bottle only , susceptibility test report to follow. COMMENT: Inspection of blood culture bottles indicates that an inadequate volume of blood may have been collected for the detection of sepsis. TRANSPORT MEDIA: Aerobic and anaerobic bottle received. THIS TEST WAS PERFORMED AT: [facility] [address] [address] [facility] [place] [address] MEÑO READ MD CULTURE, BLOOD Micro Number: [id number] Test Status: Preliminary Specimen Source: Blood Specimen Quality: Suboptimal Result: Gram positive cocci in clusters isolated , from anaerobic bottle only Identification and susceptibilities to follow. COMMENT: Inspection of blood culture bottles indicates that an inadequate volume of blood may have been collected for the detection of sepsis. TRANSPORT MEDIA: Aerobic and anaerobic bottle received. THIS TEST WAS PERFORMED AT: [facility] [address] [place] [address] MEÑO READ MD Blood Cultures ([facility]) Preliminary (changed) 08/15/23-1334 QD SEE NOTE CRITICAL RESULTS CALLED BY [facility] AND READ BACK BY SIMCO @ [employer] 08/14/2023. CULTURE, BLOOD Micro Number: [id number] Test Status: Preliminary Specimen Source: Blood Specimen Quality: Suboptimal Result: No growth to date. Culture is continuously monitored for a total of 120 hours incubation. A change in status will result in a phone report followed by an updated printed culture report. COMMENT: Inspection of blood culture bottles indicates that an inadequate volume of blood may have been collected for the detection of sepsis. TRANSPORT MEDIA: Aerobic and anaerobic bottle received. THIS TEST WAS PERFORMED AT: [facility] [address] [place] [phone] MEÑO READ MD CULTURE, BLOOD Micro Number: [id number] Test Status: Preliminary Specimen Source: Blood Specimen Quality: Suboptimal Result: Gram positive cocci in clusters isolated , from anaerobic bottle only Identification and susceptibilities to follow. COMMENT: Inspection of blood culture bottles indicates that an inadequate volume of blood may have been collected for the detection of sepsis. TRANSPORT MEDIA: Aerobic and anaerobic bottle received. THIS TEST WAS PERFORMED AT: [facility] [address] [place] [phone] MEÑO READ MD CULTURE, BLOOD Micro Number: [id number] Test Status: Preliminary Specimen Source: Blood Specimen Quality: Suboptimal Result: Staphylococcus epidermidis , from anaerobic bottle only , susceptibility test report to follow. COMMENT: Inspection of blood culture bottles indicates that an inadequate volume of blood may have been collected for the detection of sepsis. TRANSPORT MEDIA: Aerobic and anaerobic bottle received. THIS TEST WAS PERFORMED AT: [facility] [address] [place] [address] MEÑO READ MD Blood Cultures ([facility]) Preliminary (changed) 08/14/23-1333 QD SEE NOTE CRITICAL RESULTS CALLED BY [facility] AND READ BACK BY [employer]CO @ 1333. CULTURE, BLOOD Micro Number: [id number] Test Status: Preliminary Specimen Source: Blood Specimen Quality: Suboptimal Result: No growth to date. Culture is continuously monitored for a total of 120 hours incubation. A change in status will result in a phone report followed by an updated printed culture report. COMMENT: Inspection of blood culture bottles indicates that an inadequate volume of blood may have been collected for the detection of sepsis. TRANSPORT MEDIA: Aerobic and anaerobic bottle received. THIS TEST WAS PERFORMED AT: [email or web address] [address] [place] [address] MEÑO READ MD CULTURE, BLOOD Micro Number: [id number] Test Status: Preliminary Specimen Source: Blood Specimen Quality: Suboptimal Result: Gram positive cocci in clusters isolated , from anaerobic bottle only Identification and susceptibilities to follow. COMMENT: Inspection of blood culture bottles indicates that an inadequate volume of blood may have been collected for the detection of sepsis. TRANSPORT MEDIA: Aerobic and anaerobic bottle received. CT/CT angio chest PE protcl [id number] IMPRESSION: 1. No pulmonary embolism. 2. Multifocal bilateral consolidations suspicious for multifocal pneumonia. 3. NG tube with its tip at the gastroesophageal junction, consider advancing by at least 5 centimeters. US/US abdomen limited [id number] IMPRESSION: 1. Hepatomegaly with fatty infiltration of the liver. 2. No gallstones are appreciated. Gallbladder wall thickening. This is likely related to abdominal ascites. IMPRESSION: 1. No evidence of intracranial hemorrhage or mass effect. 2. Mild small vessel changes with mild parenchymal volume loss. 3. Diffuse paranasal sinusitis with air-fluid levels. 4. No acute intracranial findings. Spec : [id number] Caitlyn: 08/12/23 Status: COMP Req : [id number] Recd: 08/12/[address]: Gabrielle Marr MD Ordered: SARS Covid-2 AG Test Low Normal High Flag Reference Site SARS Covid-2 AG positive H Negative CRITICAL RESULTS CALLED BY Felicitas Vieira AND READ BACK BY SCOLA @ 0707 A&P Assessment and plan (1) Gram-positive bacteremia: (2) Multiorgan failure: (3) COVID-19: (4) Staphylococcus aureus pneumonia: Plan Mr. Tejada is a 58-year-old male with a past history of CAD, status post ICD due to cardiomyopathy, admitted to the hospital on August 11, 2022 due to acute respiratory distress. Found upon evaluation to have bilateral multifocal pneumonia. Tested positive for COVID-19 infection and sputum cultures revealing MSSA. Suspect that patient's respiratory distress is related to COVID-19 infection with superadded bacterial pneumonia leading up to multifocal pneumonia and organ failure. Blood cultures from August 12, 2022 positive for staph lugdunensis, subsequent next culture collected on August 16, 2022 remains negative to date. This may potentially represent a contamination as both sets (4 bottles) were drawn at the same time from a venous draw from the right groin. Peripheral access was extremely difficult therefore venous draw was performed from the right groin. 1 set of blood cultures showing staph lugdunensis and Staph epidermidis. Second set showing staph lugdunensis, collected at the same time. While it may potentially represent contamination, in this critically ill patient with underlying cardiac hardware, presence of central line and evidence of MSSA pneumonia, would prefer to treat as a potentially true pathogen with prolonged antibiotic course. TTE without gross vegetations Susceptibilities for staph lugdunensis shows it is oxacillin susceptible. Patient is currently on treatment with meropenem and linezolid. Plan: Discontinue meropenem and linezolid Change treatment to cefazolin 2 g IV every 8 hours. Recommend to treat for total 4 weeks(08/16-09/13) with IV cefazolin for MSSA pneumonia and staph lugdunensis bacteremia While on the above antibiotics and patient is discharged, obtain weekly CBC creatinine and LFT. Patient currently critically ill due to multorgan failure, prolonged admission and overall deconditioned. ID to sign off. Please call with any emerging questions, clinical updates or concerns. Consult Attestations 2 Medical Necessity Statement: per admitting Coding Level of Care Code Acute Code for g Fwd Diagnoses Gram-positive bacteremia R78.81 Multiorgan failure COVID-19 U07.1 Staphylococcus aureus pneumonia J15.211
--- NOTE | 2023-08-23 12:17 | PM.CONSULT ---
Providers/Reason For Consult Consulting Physician/Specialty*: Gabrielle Marr MD/ Infectious Disease Reason for Consult*: Staph ludienensis bacteremia Requesting Physician: Willi Mcgraw MD Attending Physician: Willi Mcgraw MD Primary Care Provider: Karla Ryan MD History of Present Illness History of Present Illness Param Tejada is a 58 year old male with past medical history of diabetes, obesity, coronary artery disease admitted to the hospital on 08/11 with acute respiratory distress as a result of B/L multifocal pneumonia which lead to intubation and mechanical ventilatory support. Hospital course has been notable for prolonged admission, prolonged respiratory support, extubated on August 21, 2023. He is currently on TPN. Continues to be weak and frail. Diagnostics during admission have been notable for B/L multifocal pneumonia with sputum cx revealing MSSA. From 08/11, blood cx, 2 sets with Staph Yennyiensis. Patient unable to participate in long conversation due to being deconditioned from prolonged hospital stay. Currently on treatment with meropenem and linezolid. Previosuly on vancomycin but discontinued due to CAPRI and high vanc troughs Review of Systems General: Reports: ROS unobtainable due to medical condition Medications/Allergies Home Medications Medication Instructions Recorded Confirmed Last Taken Type acetaminophen 500 mg tablet 1,000 mg PO TID PRN Pain 11/29/20 08/13/23 Unknown History aspirin 81 mg tablet,delayed 81 mg PO QAM 11/29/20 08/13/23 01/31/22 09:00 History release atorvastatin 80 mg tablet 80 mg PO QPM 11/29/20 08/13/23 01/30/22 History ipratropium 0.5 mg-albuterol 3 mg 3 ml inhalation QID PRN Shortness 11/29/20 08/13/23 Unknown History (2.5 mg base)/3 mL nebulization Of Breath soln methocarbamol 500 mg tablet See Rx Instructions .Route .COMPLEX 11/29/20 08/13/23 01/30/22 History nitroglycerin 0.4 mg sublingual 0.4 mg sublingual Q5M PRN Chest 11/29/20 08/13/23 Unknown History tablet Pain ticagrelor 90 mg tablet (Brilinta) 90 mg PO BID 11/29/20 08/13/23 01/31/22 09:00 History tiotropium bromide 2.5 2 puff inhalation DAILY 11/29/20 08/13/23 08/04/21 History mcg/actuation mist for inhalation (Spiriva Respimat) tramadol 50 mg tablet 50 - 100 mg PO TID PRN Pain 11/29/20 08/13/23 Unknown History albuterol sulfate 90 mcg/actuation 2 puff inhalation QID PRN 12/12/21 08/13/23 Unknown History aerosol inhaler Shortness Of Breath fluticasone 250 mcg-salmeterol 50 1 inh inhalation BID 01/25/22 08/13/23 Unknown History mcg/dose blistr powdr for inhalation (Wixela Inhub) naloxone 4 mg/actuation nasal spray 4 mg intranasal Q2M PRN overdose 01/31/22 08/13/23 Unknown History ketoconazole 2 % topical cream 1 applic topical BID #60 grams 04/24/22 08/13/23 Unknown Rx miconazole nitrate 2 % topical 1 applic topical DAILY #71 grams 04/24/22 08/13/23 Unknown Rx powder (Zeasorb AF) metoprolol succinate 25 mg 12.5 mg (1/2 x 25 mg) PO DAILY #45 05/18/22 08/13/23 Unknown Rx tablet,extended release 24 hr tabs potassium chloride 20 mEq 40 meq PO DAILY 05/18/22 08/13/23 Unknown History tablet,extended release blood-glucose meter,continuous #1 ea 08/23/22 08/11/23 Unknown Rx (Dexcom G6 [employer]) blood-glucose transmitter (Dexcom #3 ea 08/23/22 08/11/23 Unknown Rx G6 Transmitter device) empagliflozin 25 mg tablet 25 mg PO QAM #90 tabs 08/23/22 08/13/23 Unknown Rx (Jardiance) blood-glucose sensor (Dexcom G6 #9 ea 04/19/23 08/11/23 Unknown Rx Sensor device) clotrimazole 1 % topical cream 1 applic topical BID 08/13/23 08/13/23 Unknown History diclofenac sodium 1 % topical gel See Rx Instructions .Route 08/13/23 08/13/23 Unknown History .COMPLEX PRN Pain fluconazole 200 mg tablet See Rx Instructions .Route .COMPLEX 08/13/23 08/13/23 Unknown History furosemide 20 mg tablet 20 mg PO BID 08/13/23 08/13/23 Unknown History gabapentin 300 mg capsule 600 mg PO Q8H PRN Pain 08/13/23 08/13/23 Unknown History insulin aspart U-100 100 unit/mL See Rx Instructions .Route .COMPLEX 08/13/23 08/13/23 Unknown History (3 mL) subcutaneous pen (Novolog FlexPen U-100 Insulin aspart) levothyroxine 50 mcg tablet 50 mcg PO DAILY 08/13/23 08/13/23 Unknown History lidocaine 5 % topical patch See Rx Instructions .Route .COMPLEX 08/13/23 08/13/23 Unknown History losartan 50 mg tablet 25 mg PO DAILY 08/13/23 08/13/23 Unknown History metformin 500 mg tablet,extended 500 mg PO BID 08/13/23 08/13/23 Unknown History release 24 hr metolazone 2.5 mg tablet 2.5 mg PO EVERY OTHER DAY 08/13/23 08/13/23 Unknown History spironolactone 25 mg tablet 25 mg PO DAILY 08/13/23 08/13/23 Unknown History Allergies Allergy/AdvReac Type Severity Reaction Status Date / Time Sulfa (Sulfonamide Allergy Severe ALGY-Anaphy Verified 08/11/23 11:31 Antibiotics) laxis Current Medications Generic Name Dose Route Start Last Admin Trade Name Freq PRN Reason Stop Dose Admin Acetaminophen 650 mg 08/11/23 16:05 08/22/23 20:01 Acetaminophen 325 Mg Tablet PO 650 mg Q6H PRN Administration Mild/Mod Pain Or Temp >/= 101 Albuterol/Ipratropium 3 ml 08/11/23 16:05 08/23/23 11:09 Ipratropium-Albuterol 3 Ml Neb INHALATION 3 ml Q4H.RESPIRATORY VIRA Administration Amiodarone HCl 400 mg 08/21/23 11:00 08/23/23 08:44 Amiodarone 200 Mg Tablet PO 400 mg BID VIRA Administration Apixaban 5 mg 08/22/23 21:00 08/23/23 08:44 Apixaban 5 Mg Tablet PO 5 mg BID@0900,2100 VIRA Administration Aspirin 81 mg 08/12/23 06:00 08/23/23 06:03 Aspirin 81 Mg Ec Tablet PO 81 mg QAM VIRA Administration Atorvastatin Calcium 80 mg 08/11/23 18:00 08/22/23 17:10 Atorvastatin 40 Mg Tablet PO 80 mg QPM VIRA Administration norepinephrine 4 mg in 250 mls @ 0 mls/hr 08/11/23 12:30 08/21/23 11:00 Levophed IV 0 mcg/min .Q0M VIRA 0 mls/hr Titration Protocol Per Protocol Dexmedetomidine/Sodium Chloride 400 mcg in 100 mls @ 0 mls/hr 08/11/23 14:15 08/18/23 09:15 Precedex IV 0 mcg/kg/hr .Q0M VIRA 0 mls/hr Titration Protocol Per Protocol Meropenem 500 mg/ Sodium 50 mls @ 100 mls/hr 08/18/23 10:00 08/23/23 09:00 Chloride IV 100 mls/hr Q12H VIRA Administration Protocol Amino Acids/Electrolytes 1,000 mls @ 83 mls/hr 08/21/23 19:30 08/23/23 09:17 Clinimix E 5%-20% IV 83 mls/hr .Q12H3M VIRA Administration Protocol fat emulsions 20% 100 mls @ 8.333 mls/hr 08/21/23 19:15 08/23/23 06:20 Intralipid 20% IV Infused Q24H VIRA Infusion Insulin Glargine 10 unit 08/23/23 06:00 08/23/23 06:03 Insulin Glargine 100 Units/1 Ml SUBCUT 10 unit QAM VIRA Administration Insulin Human Lispro 0 unit 08/16/23 18:00 08/23/23 08:26 Insulin Lispro 100 Unit/1 Ml SUBCUT 14 unit WM&BEDTIME VIRA Administration Protocol Levothyroxine Sodium 50 mcg 08/23/23 06:00 08/23/23 06:03 Levothyroxine 50 Mcg Tablet PO 50 mcg QAM VIRA Administration Pantoprazole Sodium 40 mg 08/11/23 16:05 08/22/23 17:03 Pantoprazole 40 Mg Sdv IVP 40 mg Q24H VIRA Administration Ticagrelor 90 mg 08/11/23 18:00 08/23/23 08:44 Ticagrelor 90 Mg Tablet PO 90 mg BID VIRA Administration PFSH Acute PFSH: Medical History Renal calculus Hypokalemia Hyponatremia Ischemic cardiomyopathy Personal history of nicotine dependence Hypertension Diabetes CHF (congestive heart failure) CAD (coronary artery disease) Hypoxia 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 2 diabetes mellitus Insulin dependent diabetes mellitus ICD (implantable cardioverter-defibrillator) in place Morbid obesity Obstructive sleep apnea Chronic hypercapnic respiratory failure Tobacco abuse COPD (chronic obstructive pulmonary disease) Ischemic cardiomyopathy Hyperlipidemia Hypertension ST elevation myocardial infarction (STEMI) of inferior wall Surgical History S/P knee replacement History of left knee replacement History of cardiac defibrillator placement History of coronary artery stent placement -hx of CAD with inferior wall MT s/p RCA stent, LAD stent Family History Father No problems noted. Mother No problems noted. Denies family history of CAD (coronary artery disease) Social History Smoking and tobacco/nicotine status: former use of tobacco/nicotine Alcohol intake: never Substance/Drug Use: never Marital status: Single Current occupational status: disabled Do you think of yourself as: Straight/Heterosexual Vitals/I&O/Wt Last Vital Signs Temp 97.4 F L 08/23/23 04:00 Pulse 85 08/23/23 11:15 Resp 18 08/23/23 11:05 BP 98/55 08/23/23 10:00 Pulse Ox 96 08/23/23 11:05 O2 Del Method Nasal Cannula 08/23/23 11:05 O2 Flow Rate 3 08/23/23 11:05 FiO2 30 08/23/23 07:21 08/22/23 08/23/23 08/23/23 22:59 06:59 14:59 Intake Total 1339.55 / 1762.338 148.437 / 8678.319 6160 / 1000 Output Total 1450 / 1450 1400 / 2850 Balance -110.45 / 312.338 -1251.563 / -487.221 9427 / 1000 Weight last 48 hrs Weight 130 kg Weight 128.707 kg Physical Exam Narrative: General: Laying in ICU bed, deconditioned HEENT: PERRLA, pupils bilaterally equal and reactive, pallors not present Chest: B/L crackles at lung bases CVS: S1-S2 regular, no murmurs, no tachycardia, no gallops, no rubs Abdomen: Soft, nontender, no organomegaly, bowel sounds present Neuro: No focal deficits grossly Urinary Catheter Management: Burciaga: Cath Placed During This Visit: yes Reason for Continuing Indwelling Catheter: Accurate Measurement of Urinary Output in Critically Ill Patients Urinary Catheter Date of Insertion: 08/11/23 Urinary Catheter Time of Insertion: 12:38 Data 08/27/23 03:17 08/27/23 06:08 Micro: Microbiology 08/20/23 19:27 Blood Culture - Preliminary Blood 08/20/23 19:22 Blood Culture - Preliminary Blood 08/20/23 18:07 Urine Culture - Preliminary Urine Catheterized 08/16/23 12:15 Blood Culture - Final Blood 08/16/23 12:40 Blood Culture - Final Blood Spec #: [id number] Caitlyn: 08/20/23 Status: COMP Req #: [id number] Recd: 08/20/23-[address]: Willi Mcgraw MD Src: Blood SpDesc: Ordered: Bld Culture Procedure Result Verified Site Blood Cultures ([employer]) Final 08/27/23-1435 QD SEE NOTE CULTURE, BLOOD Micro Number: [id number] Test Status: Preliminary Specimen Source: Blood set 2 Specimen Quality: Adequate Result: No growth to date. Culture is continuously monitored for a total of 120 hours incubation. A change in status will result in a phone report followed by an updated printed culture report. TRANSPORT MEDIA: Aerobic and anaerobic bottle received. THIS TEST WAS PERFORMED AT: [place] [address] MEÑO REDA MD CULTURE, BLOOD Micro Number: [id number] Test Status: Final Specimen Source: Blood set 2 Specimen Quality: Adequate Result: No growth after 5 days TRANSPORT MEDIA: Aerobic and anaerobic bottle received. THIS TEST WAS PERFORMED AT: [employer] [id number] [address] [facility] [place] [address] MEÑO READ MD Blood Cultures ([employer]) Preliminary (changed) 08/22/23-1712 QD SEE NOTE CULTURE, BLOOD Micro Number: [id number] Test Status: Preliminary Specimen Source: Blood set 2 Specimen Quality: Adequate Result: No growth to date. Culture is continuously monitored for a total of 120 hours incubation. A change in status will result in a phone report followed by an updated printed culture report. TRANSPORT MEDIA: Aerobic and anaerobic bottle received. Spec #: [id number] Caitlyn: 08/20/23 Status: COMP Req #: [id number] Recd: 08/20/[address]: Willi Mcgraw MD Src: Blood [facility]: Ordered: Bld Culture Procedure Result Verified Site Blood Cultures ([facility]) Final 08/27/23-1435 QD SEE NOTE CULTURE, BLOOD Micro Number: [id number] Test Status: Preliminary Specimen Source: Blood set 1 Specimen Quality: Adequate Result: No growth to date. Culture is continuously monitored for a total of 120 hours incubation. A change in status will result in a phone report followed by an updated printed culture report. TRANSPORT MEDIA: Aerobic and anaerobic bottle received. THIS TEST WAS PERFORMED AT: [employer] [address] [place] [address] [place] [address] MEÑO READ MD CULTURE, BLOOD Micro Number: [id number] Test Status: Final Specimen Source: Blood set 1 Specimen Quality: Adequate Result: No growth after 5 days TRANSPORT MEDIA: Aerobic and anaerobic bottle received. THIS TEST WAS PERFORMED AT: [employer] [address] [place] [phone] MEÑO READ MD Blood Cultures ([employer]) Preliminary (changed) 08/22/23 QD SEE NOTE CULTURE, BLOOD Micro Number: [id number] Test Status: Preliminary Specimen Source: Blood set 1 Specimen Quality: Adequate Result: No growth to date. Culture is continuously monitored for a total of 120 hours incubation. A change in status will result in a phone report followed by an updated printed culture report. TRANSPORT MEDIA: Aerobic and anaerobic bottle received. Spec #: [id number] Caitlyn: 08/20/23 Status: COMP Req #: [id number] Recd: 08/20/[address]: Willi Mcgraw MD Src: Urine Cath [facility]: Ordered: UC Procedure Result Verified Site Urine Culture Final 08/23/23-152 NO GROWTH AT 36-48 HOURS Urine Culture Preliminary (changed) 08/22/23 NO GROWTH AT 18-24 HOURS Spec #: [id number] Caitlyn: 08/16/23 Status: COMP Req #: [id number] Recd: 08/16/[address]: Willi Mcgraw MD Src: Blood SpDesc: Ordered: Bld Culture Procedure Result Verified Site Blood Cultures ([facility]) Final 08/22/23 QD SEE NOTE CULTURE, BLOOD Micro Number: [id number] Test Status: Preliminary Specimen Source: Bld set 2 Specimen Quality: Adequate Result: No growth to date. Culture is continuously monitored for a total of 120 hours incubation. A change in status will result in a phone report followed by an updated printed culture report. TRANSPORT MEDIA: Aerobic and anaerobic bottle received. THIS TEST WAS PERFORMED AT: [employer] [address] [place] [phone] MEÑO READ MD CULTURE, BLOOD Micro Number: [id number] Test Status: Final Specimen Source: Bld set 2 Specimen Quality: Adequate Result: No growth after 5 days TRANSPORT MEDIA: Aerobic and anaerobic bottle received. THIS TEST WAS PERFORMED AT: [employer] [address] MEÑO READ MD Blood Cultures ([employer]) Preliminary (changed) 08/18/23 QD SEE NOTE CULTURE, BLOOD Micro Number: [id number] Test Status: Preliminary Specimen Source: Bld set 2 Specimen Quality: Adequate Result: No growth to date. Culture is continuously monitored for a total of 120 hours incubation. A change in status will result in a phone report followed by an updated printed culture report. TRANSPORT MEDIA: Aerobic and anaerobic bottle received. Spec #: [id number] Caitlyn: 08/16/23 Status: COMP Req #: [id number] Recd: 08/16/[address]: Willi Mcgraw MD Src: Blood SpDes: Ordered: Bld Culture Procedure Result Verified Site Blood Cultures ([facility]) Final 08/22/23 QD SEE NOTE CULTURE, BLOOD Micro Number: [id number] Test Status: Preliminary Specimen Source: Bld set 1 Specimen Quality: Adequate Result: No growth to date. Culture is continuously monitored for a total of 120 hours incubation. A change in status will result in a phone report followed by an updated printed culture report. TRANSPORT MEDIA: Aerobic and anaerobic bottle received. THIS TEST WAS PERFORMED AT: [employer] [address] [place] [phone] MEÑO READ MD CULTURE, BLOOD Micro Number: [id number] Test Status: Preliminary Specimen Source: Bld set 1 =>Specimen Quality: Suboptimal Result: No growth to date. Culture is continuously monitored for a total of 120 hours incubation. A change in status will result in a phone report followed by an updated printed culture report. COMMENT: Inspection of blood culture bottles indicates that an inadequate volume of blood may have been collected for the detection of sepsis. TRANSPORT MEDIA: Aerobic and anaerobic bottle received. THIS TEST WAS PERFORMED AT: [facility] [address] MEÑO READ MD CULTURE, BLOOD Micro Number: [id number] Test Status: Final Specimen Source: d set 1 Specimen Quality: Suboptimal Result: No growth after 5 days COMMENT: Inspection of blood culture bottles indicates that an inadequate volume of blood may have been collected for the detection of sepsis. TRANSPORT MEDIA: Aerobic and anaerobic bottle received. THIS TEST WAS PERFORMED AT: [facility] [address] [place] [phone] MEÑO READ MD Blood Cultures ([facility]) Preliminary (changed) 08/18/23 QD SEE NOTE CULTURE, BLOOD Micro Number: [id number] Test Status: Preliminary Specimen Source: d set 1 Specimen Quality: Adequate Result: No growth to date. Culture is continuously monitored for a total of 120 hours incubation. A change in status will result in a phone report followed by an updated printed culture report. TRANSPORT MEDIA: Aerobic and anaerobic bottle received. THIS TEST WAS PERFORMED AT: [facility] [address] [place] [phone] MEÑO READ MD CULTURE, BLOOD Micro Number: [id number] Test Status: Preliminary Specimen Source: d set 1 =>Specimen Quality: Suboptimal Result: No growth to date. Culture is continuously monitored for a total of 120 hours incubation. A change in status will result in a phone report followed by an updated printed culture report. COMMENT: Inspection of blood culture bottles indicates that an inadequate volume of blood may have been collected for the detection of sepsis. TRANSPORT MEDIA: Aerobic and anaerobic bottle received. Spec #: [id number] Caitlyn: 08/12/23 Status: COMP Req #: [id number] Recd: 08/12/[address]: Willi Mcgraw MD [facility]: Or[facility]: Bld Culture Comments: SET 2 Procedure Result Verified Site Blood Cultures ([facility]) Final 08/15/23-1419 QD SEE NOTE CRITICAL RESULTS CALLED BY [email or web address] AND READ BACK BY [employer] @ [id number]. CULTURE, BLOOD Micro Number: [id number] Test Status: Preliminary Specimen Source: Blood Specimen Quality: Suboptimal Result: No growth to date. Culture is continuously monitored for a total of 120 hours incubation. A change in status will result in a phone report followed by an updated printed culture report. COMMENT: Inspection of blood culture bottles indicates that an inadequate volume of blood may have been collected for the detection of sepsis. TRANSPORT MEDIA: Aerobic and anaerobic bottle received. THIS TEST WAS PERFORMED AT: [employer] [place] [address] MEÑO READ MD CULTURE, BLOOD Micro Number: [id number] Test Status: Preliminary Specimen Source: Blood Specimen Quality: Suboptimal Result: Gram positive cocci in clusters isolated , from aerobic and anaerobic bottles Identification and susceptibilities to follow. COMMENT: Inspection of blood culture bottles indicates that an inadequate volume of blood may have been collected for the detection of sepsis. TRANSPORT MEDIA: Aerobic and anaerobic bottle received. THIS TEST WAS PERFORMED AT: [facility] [employer] [address] [employer] [place] [address] MEÑO READ MD CULTURE, BLOOD Micro Number: [id number] Test Status: Preliminary Specimen Source: Blood Specimen Quality: Suboptimal Result: Presumptive Staphylococcus lugdunensis , from aerobic and anaerobic bottles Identification and susceptibilities to follow. COMMENT: Inspection of blood culture bottles indicates that an inadequate volume of blood may have been collected for the detection of sepsis. TRANSPORT MEDIA: Aerobic and anaerobic bottle received. THIS TEST WAS PERFORMED AT: [employer] [facility] [id number] [address] [place] [address] MEÑO READ MD CULTURE, BLOOD Micro Number: [id number] Test Status: Final Specimen Source: Blood Specimen Quality: Suboptimal Result: Staphylococcus lugdunensis , from aerobic and anaerobic bottles COMMENT: Inspection of blood culture bottles indicates that an inadequate volume of blood may have been collected for the detection of sepsis. S.lugdunensis INT KEVIN CLINDAMYCIN S <=0.25 ERYTHROMYCIN S <=0.25 GENTAMICIN S <=0.5 OXACILLIN S 2 1 TETRACYCLINE S <=1 TRIMETHOPRIM/SULFA S <=10 VANCOMYCIN S <=0.5 S=Susceptible I=Intermediate R=Resistant * = Not Tested NR = Not Reported NN = See Therapy Comments THERAPY COMMENTS Note 1: Oxacillin susceptible staphylococci are susceptible to other penicillinase-stable penicillins (e.g., methicillin, nafcillin), beta- lactam/beta-lactamase inhibitor combinations, and cephems with staphylococcal indications, including cefazolin. TRANSPORT MEDIA: Aerobic and anaerobic bottle received. THIS TEST WAS PERFORMED AT: [place] [address] MEÑO READ MD Blood Cultures ([employer]) Preliminary (changed) 08/14/23-1333 QD SEE NOTE CRITICAL RESULTS CALLED BY [facility] AND READ BACK BY SIMCO @ 1333. CULTURE, BLOOD Micro Number: [id number] Test Status: Preliminary Specimen Source: Blood Specimen Quality: Suboptimal Result: No growth to date. Culture is continuously monitored for a total of 120 hours incubation. A change in status will result in a phone report followed by an updated printed culture report. COMMENT: Inspection of blood culture bottles indicates that an inadequate volume of blood may have been collected for the detection of sepsis. TRANSPORT MEDIA: Aerobic and anaerobic bottle received. THIS TEST WAS PERFORMED AT: [employer] [id number] [place] [address] MEÑO READ MD CULTURE, BLOOD Micro Number: [id number] Test Status: Preliminary Specimen Source: Blood Specimen Quality: Suboptimal Result: Gram positive cocci in clusters isolated , from aerobic and anaerobic bottles Identification and susceptibilities to follow. COMMENT: Inspection of blood culture bottles indicates that an inadequate volume of blood may have been collected for the detection of sepsis. TRANSPORT MEDIA: Aerobic and anaerobic bottle received. THIS TEST WAS PERFORMED AT: [employer] [facility] [id number] [place] [address] MEÑO READ MD CULTURE, BLOOD Micro Number: [id number] Test Status: Preliminary Specimen Source: Blood Specimen Quality: Suboptimal Result: Presumptive Staphylococcus lugdunensis , from aerobic and anaerobic bottles Identification and susceptibilities to follow. COMMENT: Inspection of blood culture bottles indicates that an inadequate volume of blood may have been collected for the detection of sepsis. TRANSPORT MEDIA: Aerobic and anaerobic bottle received. Spec #: [id number] Caitlyn: 08/12/23 Status: COMP Req #: [id number] Recd: 08/12/23-[address]: Willi Mcgraw MD Src: Blood SpDesc: Ordered: Bld Culture Comments: SET 1 Procedure Result Verified Site Blood Cultures ([facility]) Final 08/20/23-1548 QD SEE NOTE CRITICAL RESULTS CALLED BY [email or web address] AND READ BACK BY [employer] @ [employer] 08/14/2023. CULTURE, BLOOD Micro Number: [id number] Test Status: Preliminary Specimen Source: Blood Specimen Quality: Suboptimal Result: No growth to date. Culture is continuously monitored for a total of 120 hours incubation. A change in status will result in a phone report followed by an updated printed culture report. COMMENT: Inspection of blood culture bottles indicates that an inadequate volume of blood may have been collected for the detection of sepsis. TRANSPORT MEDIA: Aerobic and anaerobic bottle received. THIS TEST WAS PERFORMED AT: [employer] [facility] [id number] [place] [address] MEÑO READ MD CULTURE, BLOOD Micro Number: [id number] Test Status: Preliminary Specimen Source: Blood Specimen Quality: Suboptimal Result: Gram positive cocci in clusters isolated , from anaerobic bottle only Identification and susceptibilities to follow. COMMENT: Inspection of blood culture bottles indicates that an inadequate volume of blood may have been collected for the detection of sepsis. TRANSPORT MEDIA: Aerobic and anaerobic bottle received. THIS TEST WAS PERFORMED AT: [employer] [id number] [place] [address] MEÑO READ MD CULTURE, BLOOD Micro Number: [id number] Test Status: Preliminary Specimen Source: Blood Specimen Quality: Suboptimal Result: Staphylococcus epidermidis , from anaerobic bottle only , susceptibility test report to follow. COMMENT: Inspection of blood culture bottles indicates that an inadequate volume of blood may have been collected for the detection of sepsis. TRANSPORT MEDIA: Aerobic and anaerobic bottle received. THIS TEST WAS PERFORMED AT: [employer] [address] [facility] [place] [address] MEÑO READ MD CULTURE, BLOOD Micro Number: [id number] Test Status: Preliminary Specimen Source: Blood Specimen Quality: Suboptimal Result: Gram positive cocci in clusters isolated , from anaerobic bottle only Identification and susceptibilities to follow. COMMENT: Inspection of blood culture bottles indicates that an inadequate volume of blood may have been collected for the detection of sepsis. TRANSPORT MEDIA: Aerobic and anaerobic bottle received. THIS TEST WAS PERFORMED AT: [facility] [address] MEÑO READ MD CULTURE, BLOOD Micro Number: [id number] Test Status: Preliminary Specimen Source: Blood Specimen Quality: Suboptimal Result: Staphylococcus lugdunensis , from anaerobic bottle only Please see other blood culture report for susceptibility results. Comment: [id number] COMMENT: Inspection of blood culture bottles indicates that an inadequate volume of blood may have been collected for the detection of sepsis. TRANSPORT MEDIA: Aerobic and anaerobic bottle received. THIS TEST WAS PERFORMED AT: [facility] [address] [address] MEÑO READ MD CULTURE, BLOOD Micro Number: [id number] Test Status: Final Specimen Source: Blood Specimen Quality: Suboptimal Result: Staphylococcus lugdunensis , from anaerobic bottle only Please see other blood culture report for susceptibility results. Comment: [id number] COMMENT: Inspection of blood culture bottles indicates that an inadequate volume of blood may have been collected for the detection of sepsis. TRANSPORT MEDIA: Aerobic and anaerobic bottle received. THIS TEST WAS PERFORMED AT: [facility] [address] [address] MEÑO READ MD Blood Cultures ([facility]) Preliminary (changed) 08/15/23-1419 QD SEE NOTE CRITICAL RESULTS CALLED BY HEALTH SYSTEM AND READ BACK BY [employer] @ [facility] 08/14/2023. CULTURE, BLOOD Micro Number: [id number] Test Status: Preliminary Specimen Source: Blood Specimen Quality: Suboptimal Result: No growth to date. Culture is continuously monitored for a total of 120 hours incubation. A change in status will result in a phone report followed by an updated printed culture report. COMMENT: Inspection of blood culture bottles indicates that an inadequate volume of blood may have been collected for the detection of sepsis. TRANSPORT MEDIA: Aerobic and anaerobic bottle received. THIS TEST WAS PERFORMED AT: [facility] [address] [place] [address] MEÑO READ MD CULTURE, BLOOD Micro Number: [id number] Test Status: Preliminary Specimen Source: Blood Specimen Quality: Suboptimal Result: Gram positive cocci in clusters isolated , from anaerobic bottle only Identification and susceptibilities to follow. COMMENT: Inspection of blood culture bottles indicates that an inadequate volume of blood may have been collected for the detection of sepsis. TRANSPORT MEDIA: Aerobic and anaerobic bottle received. THIS TEST WAS PERFORMED AT: [facility] [address] [place], [place] [address] [place] [address] MEÑO READ MD CULTURE, BLOOD Micro Number: [id number] Test Status: Preliminary Specimen Source: Blood Specimen Quality: Suboptimal Result: Staphylococcus epidermidis , from anaerobic bottle only , susceptibility test report to follow. COMMENT: Inspection of blood culture bottles indicates that an inadequate volume of blood may have been collected for the detection of sepsis. TRANSPORT MEDIA: Aerobic and anaerobic bottle received. THIS TEST WAS PERFORMED AT: [employer] [facility] [place] [address] MEÑO READ MD CULTURE, BLOOD Micro Number: [id number] Test Status: Preliminary Specimen Source: Blood Specimen Quality: Suboptimal Result: Gram positive cocci in clusters isolated , from anaerobic bottle only Identification and susceptibilities to follow. COMMENT: Inspection of blood culture bottles indicates that an inadequate volume of blood may have been collected for the detection of sepsis. TRANSPORT MEDIA: Aerobic and anaerobic bottle received. THIS TEST WAS PERFORMED AT: [facility] [facility] [place] [address] MEÑO READ MD CULTURE, BLOOD Micro Number: [id number] Test Status: Preliminary Specimen Source: Blood Specimen Quality: Suboptimal Result: Staphylococcus lugdunensis , from anaerobic bottle only Please see other blood culture report for susceptibility results. Comment: [id number] COMMENT: Inspection of blood culture bottles indicates that an inadequate volume of blood may have been collected for the detection of sepsis. TRANSPORT MEDIA: Aerobic and anaerobic bottle received. THIS TEST WAS PERFORMED AT: [facility] [facility] [place] [address] MEÑO READ MD Blood Cultures ([facility]) Preliminary (changed) 08/15/23-1344 QD SEE NOTE CRITICAL RESULTS CALLED BY [email or web address] AND READ BACK BY [employer] @ 1337 08/14/2023. CULTURE, BLOOD Micro Number: [id number] Test Status: Preliminary Specimen Source: Blood Specimen Quality: Suboptimal Result: No growth to date. Culture is continuously monitored for a total of 120 hours incubation. A change in status will result in a phone report followed by an updated printed culture report. COMMENT: Inspection of blood culture bottles indicates that an inadequate volume of blood may have been collected for the detection of sepsis. TRANSPORT MEDIA: Aerobic and anaerobic bottle received. THIS TEST WAS PERFORMED AT: [place] [address] MEÑO READ MD CULTURE, BLOOD Micro Number: [id number] Test Status: Preliminary Specimen Source: Blood Specimen Quality: Suboptimal Result: Gram positive cocci in clusters isolated , from anaerobic bottle only Identification and susceptibilities to follow. COMMENT: Inspection of blood culture bottles indicates that an inadequate volume of blood may have been collected for the detection of sepsis. TRANSPORT MEDIA: Aerobic and anaerobic bottle received. THIS TEST WAS PERFORMED AT: [facility] [place] [address] MEÑO READ MD CULTURE, BLOOD Micro Number: [id number] Test Status: Preliminary Specimen Source: Blood Specimen Quality: Suboptimal Result: Staphylococcus epidermidis , from anaerobic bottle only , susceptibility test report to follow. COMMENT: Inspection of blood culture bottles indicates that an inadequate volume of blood may have been collected for the detection of sepsis. TRANSPORT MEDIA: Aerobic and anaerobic bottle received. THIS TEST WAS PERFORMED AT: [facility] [place] [address] MEÑO READ MD CULTURE, BLOOD Micro Number: [id number] Test Status: Preliminary Specimen Source: Blood Specimen Quality: Suboptimal Result: Gram positive cocci in clusters isolated , from anaerobic bottle only Identification and susceptibilities to follow. COMMENT: Inspection of blood culture bottles indicates that an inadequate volume of blood may have been collected for the detection of sepsis. TRANSPORT MEDIA: Aerobic and anaerobic bottle received. THIS TEST WAS PERFORMED AT: [employer] [id number] [facility] [place] [address] MEÑO READ MD Blood Cultures ([facility]) Preliminary (changed) 08/15/23-1334 QD SEE NOTE CRITICAL RESULTS CALLED BY [email or web address] AND READ BACK BY SIMCO @ [email or web address] 08/14/2023. CULTURE, BLOOD Micro Number: [id number] Test Status: Preliminary Specimen Source: Blood Specimen Quality: Suboptimal Result: No growth to date. Culture is continuously monitored for a total of 120 hours incubation. A change in status will result in a phone report followed by an updated printed culture report. COMMENT: Inspection of blood culture bottles indicates that an inadequate volume of blood may have been collected for the detection of sepsis. TRANSPORT MEDIA: Aerobic and anaerobic bottle received. THIS TEST WAS PERFORMED AT: [employer] [address] [place] [id number] MEÑO READ MD CULTURE, BLOOD Micro Number: [id number] Test Status: Preliminary Specimen Source: Blood Specimen Quality: Suboptimal Result: Gram positive cocci in clusters isolated , from anaerobic bottle only Identification and susceptibilities to follow. COMMENT: Inspection of blood culture bottles indicates that an inadequate volume of blood may have been collected for the detection of sepsis. TRANSPORT MEDIA: Aerobic and anaerobic bottle received. THIS TEST WAS PERFORMED AT: [employer] [address] [place] [address] MEÑO READ MD CULTURE, BLOOD Micro Number: [id number] Test Status: Preliminary Specimen Source: Blood Specimen Quality: Suboptimal Result: Staphylococcus epidermidis , from anaerobic bottle only , susceptibility test report to follow. COMMENT: Inspection of blood culture bottles indicates that an inadequate volume of blood may have been collected for the detection of sepsis. TRANSPORT MEDIA: Aerobic and anaerobic bottle received. THIS TEST WAS PERFORMED AT: [employer] [address] [place] [address] MEÑO READ MD Blood Cultures ([employer]) Preliminary (changed) 08/14/23-1334 QD SEE NOTE CRITICAL RESULTS CALLED BY [email or web address] AND READ BACK BY SIMCO @ 1333. CULTURE, BLOOD Micro Number: [id number] Test Status: Preliminary Specimen Source: Blood Specimen Quality: Suboptimal Result: No growth to date. Culture is continuously monitored for a total of 120 hours incubation. A change in status will result in a phone report followed by an updated printed culture report. COMMENT: Inspection of blood culture bottles indicates that an inadequate volume of blood may have been collected for the detection of sepsis. TRANSPORT MEDIA: Aerobic and anaerobic bottle received. THIS TEST WAS PERFORMED AT: [facility] [place] [address] [place] [address] MEÑO READ MD CULTURE, BLOOD Micro Number: [id number] Test Status: Preliminary Specimen Source: Blood Specimen Quality: Suboptimal Result: Gram positive cocci in clusters isolated , from anaerobic bottle only Identification and susceptibilities to follow. COMMENT: Inspection of blood culture bottles indicates that an inadequate volume of blood may have been collected for the detection of sepsis. TRANSPORT MEDIA: Aerobic and anaerobic bottle received. CT/CT angio chest PE protcl 32612 IMPRESSION: 1. No pulmonary embolism. 2. Multifocal bilateral consolidations suspicious for multifocal pneumonia. 3. NG tube with its tip at the gastroesophageal junction, consider advancing by at least 5 centimeters. US/US abdomen limited 21404 IMPRESSION: 1. Hepatomegaly with fatty infiltration of the liver. 2. No gallstones are appreciated. Gallbladder wall thickening. This is likely related to abdominal ascites. IMPRESSION: 1. No evidence of intracranial hemorrhage or mass effect. 2. Mild small vessel changes with mild parenchymal volume loss. 3. Diffuse paranasal sinusitis with air-fluid levels. 4. No acute intracranial findings. Spec : [id number] Caitlyn: 08/12/23 Status: COMP Req : [id number] Recd: 08/12/[address]: Gabrielle Marr MD Ordered: SARS Covid-2 AG Test Low Normal High Flag Reference Site SARS Covid-2 AG positive H Negative CRITICAL RESULTS CALLED BY Felicitas Vieira AND READ BACK BY [employer] @ 0707 A&P Assessment and plan (1) Gram-positive bacteremia: (2) Multiorgan failure: (3) COVID-19: (4) Staphylococcus aureus pneumonia: Plan Mr. Tejada is a 58-year-old male with a past history of CAD, status post ICD due to cardiomyopathy, admitted to the hospital on August 11, 2022 due to acute respiratory distress. Found upon evaluation to have bilateral multifocal pneumonia. Tested positive for COVID-19 infection and sputum cultures revealing MSSA. Suspect that patient's respiratory distress is related to COVID-19 infection with superadded bacterial pneumonia leading up to multifocal pneumonia and organ failure. Blood cultures from August 12, 2022 positive for staph lugdunensis, subsequent next culture collected on August 16, 2022 remains negative to date. This may potentially represent a contamination as both sets (4 bottles) were drawn at the same time from a venous draw from the right groin. Peripheral access was extremely difficult therefore venous draw was performed from the right groin. 1 set of blood cultures showing staph lugdunensis and Staph epidermidis. Second set showing staph lugdunensis, collected at the same time. While it may potentially represent contamination, in this critically ill patient with underlying cardiac hardware, presence of central line and evidence of MSSA pneumonia, would prefer to treat as a potentially true pathogen with prolonged antibiotic course. TTE without gross vegetations Susceptibilities for staph lugdunensis shows it is oxacillin susceptible. Patient is currently on treatment with meropenem and linezolid. Plan: Discontinue meropenem and linezolid Change treatment to cefazolin 2 g IV every 8 hours. Recommend to treat for total 4 weeks(08/16-09/13) with IV cefazolin for MSSA pneumonia and staph lugdunensis bacteremia While on the above antibiotics and patient is discharged, obtain weekly CBC creatinine and LFT. Patient currently critically ill due to multorgan failure, prolonged admission and overall deconditioned. ID to sign off. Please call with any emerging questions, clinical updates or concerns. Consult Attestations Medical Necessity Statement: per admitting Coding Level of Care Code Acute Code for g Fwd Diagnoses Gram-positive bacteremia R78.81 Multiorgan failure COVID-19 U07.1 Staphylococcus aureus pneumonia J15.211
[2023-08-23 12:38] LABS: Glucose Point of Care 341 mg/dL (70-110)
--- NOTE | 2023-08-23 12:39 | XR_ITS ---
WS: [id number] XR chest 1V portable 25421 REASON FOR EXAM: Post PICC insertion FINDINGS: Right arm PICC line placement. The tip of the right arm PICC line is located in the distal third of the superior vena cava, a positi on that is appropriate for use. IMPRESSION: PICC line placement as above. PICC line position was discussed with the interventional radiology technologist at 1:5 0 p.m.
[2023-08-23] MEDS: ceFAZolin 2,000 MG in sodium chloride 0.9% (plus) 50 ML 100 MG IV ×2 (12:46→20:53)
--- NOTE | 2023-08-23 13:30 | PC.NURSE ---
Triple lumen PICC placed to right brachial vein. Referred to vascular access nurse for PICC placement for IV antibiotics. Risks and benefits discussed and informed consent obtained from patient. Pt very weak and unable to sign. Verbal consent taken with two nurse verification. Right arm assessed with right brachial vein measuring 5 mm, straight, and apparent best choice for placement. Using sterile technique and MST, right brachial vein accessed x 1 stick. Mid-arm circumference measured 10 cm from right AC 41 cm. Trimmed cath 51 cm with 2 cm external length noted. CXR shows tip in distal third of SVC, in good position for use per radiologist. Line secured with stat-lock. Insertion site covered with Biopatch and TSM. Report given to bedside nurseJarad.
--- NOTE | 2023-08-23 14:55 | PM.PN ---
Subjective Subjective: on 4 L NC UOP improved Medications: Reviewed: Yes Vitals/I&O/Wt Last Vital Signs Temp 97.4 F L 08/23/23 04:00 Pulse 84 08/23/23 14:30 Resp 22 H 08/23/23 14:30 BP 100/67 08/23/23 14:30 Pulse Ox 97 08/23/23 14:30 O2 Del Method Nasal Cannula 08/23/23 11:05 O2 Flow Rate 3 08/23/23 11:05 FiO2 30 08/23/23 13:30 08/22/23 08/23/23 08/23/23 22:59 06:59 14:59 Intake Total 1339.55 / 1762.338 148.437 / 3597.299 3987 / 1000 Output Total 1450 / 1450 1400 / 2850 Balance -110.45 / 312.338 -1251.563 / -368.321 0173 / 1000 Weight last 48 hrs Weight 130 kg Weight 128.707 kg Physical Exam Narrative: AWAKE , ALERT NO DISTRESS Urinary Catheter Management: Burciaga: Cath Placed During This Visit: yes Reason for Continuing Indwelling Catheter: Accurate Measurement of Urinary Output in Critically Ill Patients Urinary Catheter Date of Insertion: 08/11/23 Urinary Catheter Time of Insertion: 12:38 Data 08/23/23 05:03 08/23/23 05:03 Micro: Microbiology 08/20/23 19:27 Blood Culture - Preliminary Blood 08/20/23 19:22 Blood Culture - Preliminary Blood 08/20/23 18:07 Urine Culture - Preliminary Urine Catheterized 08/16/23 12:15 Blood Culture - Final Blood 08/16/23 12:40 Blood Culture - Final Blood A&P Assessment and plan (1) Acute renal failure: Qualifiers: Acute renal failure type: unspecified Qualified Code(s): N17.9 - Acute kidney failure, unspecified Plan 1. Acute kidney injury, in the setting of shock, cardiac arrest. Baseline creatinine was normal in November 2022. 2. COVID, multifocal pneumonia,- Extubated 3. Hyponatremia, hypervolemic, 4. Metabolic acidosis 5. Hyperphosphatemia: recommended change tube feed to nephro, 6. History of COPD, coronary artery disease, obesity Plan: renal function improving , , PRN IV lasix Attestations Medical Necessity Statement*: per [facility] Coding Level of Care Code Acute Code for Chg Fwd Diagnoses Acute renal failure, unspecified acute renal failure type N17.9 Acute renal failure type: unspecified
[2023-08-23] MEDS: pantoprazole 40 mg SDV IVP (15:22)
--- NOTE | 2023-08-23 16:44 | PC.OT ---
Attempted OT treatment at 9:45 am with pt declining treatment; will attempt at later time.
--- NOTE | 2023-08-23 16:58 | P.PN_ITS ---
Subjective 2 Subjective: Patient was seen this morning, currently on nasal cannula, he did use BiPAP throughout the night, he is alert to person, not to place, to time has generalized weakness he is able to give me the thumbs up that he is doing okay, but is quite withdrawn, we discussed physical therapy working with him today, speech therapy working with him today, I am worried that he is a high aspiration risk, Symond keep him n.p.o. continue peripheral nutrition, until his mentation starts to clear and we can start to p.o. feed him orally, will diurese him today, spoke to infectious disease, switch to cefazolin 2 g IV every 8 hours, will remove central line, Place PICC line plan on at least a month of antibiotic Vitals/I&O/Wt Last Vital Signs Temp 97.4 F L 08/23/23 04:00 Pulse 83 08/23/23 15:30 Resp 16 08/23/23 15:20 BP 100/67 08/23/23 14:30 Pulse Ox 98 08/23/23 15:30 O2 Del Method BiPAP 08/23/23 15:20 O2 Flow Rate 3 08/23/23 11:05 FiO2 30 08/23/23 15:30 08/23/23 08/23/23 08/23/23 06:59 14:59 22:59 Intake Total 148.437 / 8342.712 9947 / 1000 Output Total 1400 / 2850 Balance -1251.563 / -011.223 8571 / 1000 Weight last 48 hrs Weight 130 kg Weight 128.707 kg Physical Exam 2 Const: COMMON NORMALS: no acute distress EXAM LIMITATIONS: altered mental status ORIENTATION/CONSCIOUSNESS: Yes awake and Yes oriented to person; not oriented to place and not oriented to time Resp: COMMON NORMALS: normal respiratory effort, No retractions, No use of accessory muscles and clear to auscultation bilaterally AUSCULTATION: clear to auscultation bilaterally Cardio: COMMON NORMALS: regular rate, regular rhythm, S1 normal heart sound present and S2 normal heart sound present RATE: regular rate RHYTHM: r egular rhythm HEART SOUNDS: S1 normal heart sound present and S2 normal heart sound present GI: COMMON NORMALS: Normal to inspection, nondistended, normoactive bowel sounds present and non-tender Extremity: COMMON NORMALS: no pedal edema Neuro: SENSORIUM/ORIENTATION: Yes oriented to person, No oriented to place and No oriented to time Psych: COMMON NORMALS: mental status grossly normal Urinary Catheter Management: Burciaga: Cath Placed During This Visit: yes Reason for Continuing Indwelling Catheter: Accurate Measurement of Urinary Output in Critically Ill Patients Urinary Catheter Date of Insertion: 08/11/23 Urinary Catheter Time of Insertion: 12:38 Data 08/23/23 05:03 08/23/23 05:03 Micro: Microbiology 08/20/23 18:07 Urine Culture - Final Urine Catheterized 08/20/23 19:27 Blood Culture - Preliminary Blood 08/20/23 19:22 Blood Culture - Preliminary Blood A&P Assessment and plan (1) Acute encephalopathy: (2) Pneumonia due to COVID-19 virus: (3) Multifocal pneumonia: (4) Acute renal failure: Qualifiers: Acute renal failure type: unspecified Qualified Code(s): N17.9 - Acute kidney failure, unspecified (5) Septic shock: (6) Multiorgan failure: (7) Acute hypoxic respiratory failure: (8) V-tach: (9) Shock: (10) NSTEMI (non-ST elevated myocardial infarction): (11) CAPRI (acute kidney injury): (12) 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 2 diabetes mellitus: (13) Morbid obesity: (14) CAD (coronary artery disease): (15) ICD (implantable cardioverter-defibrillator) in place: (16) Sustained ventricular tachycardia: (17) CHF (congestive heart failure): (18) Ischemic cardiomyopathy: (19) Systolic CHF, acute: (20) COPD (chronic obstructive pulmonary disease): (21) Obstructive sleep apnea: (22) Tobacco abuse: (23) Metabolic acidosis: (24) Lactic acidosis: (25) Hyperkalemia: (26) Hyponatremia: (27) Goals of care, counseling/discussion: (28) Staphylococcus aureus pneumonia: (29) Rhabdomyolysis: (30) Shock liver: (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 Likely component of hyponatremia, uremia, sepsis ? Some component related to sedating medications such as Versed, -concerns for anoxic brain injury, ?continue neurochecks, ? Monitor mentation closely, ? CT of the head IMPRESSION: 1. No evidence of intracranial hemorrhage or mass effect. 2. Mild small vessel changes with mild parenchymal volume loss. 3. Diffuse paranasal sinusitis with air-fluid levels. 4. No acute intracranial findings. -neurology consulted Ventricular tachycardia ? Status post cardioversion, Versed, fentanyl, -Cardiology consulted A-fib with RVR -Seen on telemetry -On po amiodarone - eliquis tonight Hyperglycemia with concern for HHS, increased anion gap 24.7,resolved ? on subcut insulin ? Monitor blood sugars ? Monitor anion gap, ? Monitor potassium Shock liver, resolving ? Likely sec to septic shock ?continue to monitor closely NSTEMI -According to family, coronary angiography done at the [facility], was within normal limits, stents no significant obstruction, no intervention required he also had a pacemaker check about a month ago which was within normal limits -Serial EKGs, starting troponins, telemetry monitoring, ? Aspirin, statin, Brilinta ?cardiac echo ? Completed 48 hours of heparin drip, switch to subcu heparin ?cardiology consulted Acute hypoxic respiratory failure ? Likely secondary to COVID-19 pneumonia, multifocal bacterial pneumonia, Staph aureus pneumonia ? Some component related to systolic CHF, fluid overload ? Plan -Monitor respiratory status closely, ? -on cefazolin ? Completed remdesivir, ? Follow blood cultures, sputum cultures ? eliquis ?extubated -on nasal cannula -bipap during the night ? , Precedex for sedation, -Pulmonary consulted Gram-positive bacteremia, staph lundgensus ? cefazolin -Repeat blood cultures negative so far COVID-19 pneumonia, ? completed remdesivir, ? completed steroids Multifocal bacterial pneumonia, Staph aureus positive sputum cultures ? As above Septic shock, resolved -COVID-19, dialysis, currently on 9 of levophed ? Currently on Levophed ? Off vasopressin ? off epinephrine drip ? Scheduled albumin ? Follow cultures Acute renal failure ? Likely secondary to sepsis, septic shock, COVID-19 ? Consulted nephrology, ? dialysis catheter placement, -Issues with CRRT machine ? Monitor urine output, lackluster for the last 24-48 hrs. ? Plan on diureses Metabolic acidosis resolved ? Likely secondary to sepsis, septic shock, acute renal failure, next Lactic acidosis resolved ? Likely sec to sepsis, Hyperkalemia, resolving ? Status post D50, insulin, calcium gluconate Type 2 diabetes mellitus, blood sugars remain uncontrolled, low-dose Lantus, COPD, no active wheezing, DO NOT INTUBATE, okay with CPR, drugs per ACLS ? Protonix for GI prophylaxis, ? Heparin for DVT prophylaxis, ? Prognosis guarded, status stable -Plan for today, IV Lasix, PT OT, speech therapy eval, monitor blood sugars closely, continue antibiotics, switch to Eliquis, start cefazolin, Attestations 2 Medical Necessity Statement*: Patient requires hospitalization for acute respiratory failure, encephalopathy, Staph aureus pneumonia, staph mindedness bacteremia Diagnoses Acute encephalopathy G93.40 Pneumonia due to COVID-19 virus U07.1; J12.82 Multifocal pneumonia J18.9 Acute renal failure, unspecified acute renal failure type N17.9 Acute renal failure type: unspecified Septic shock A41.9; R65.21 Multiorgan failure Acute hypoxic respiratory failure J96.01 V-tach I47.20 Shock R57.9 NSTEMI (non-ST elevated myocardial infarction) I21.4 CAPRI (acute kidney injury) N17.9 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 2 diabetes mellitus E11.22; N18.2 Morbid obesity E66.01 Coronary artery disease involving [place] coronary artery of [place] heart without angina pectoris I25.10 ICD (implantable cardioverter-defibrillator) in place Z95.810 Sustained ventricular tachycardia I47.20 Acute on chronic systolic congestive heart failure I50.9 Ischemic cardiomyopathy I25.5 Systolic CHF, acute I50.21 COPD (chronic obstructive pulmonary disease) J44.9 Obstructive sleep apnea G47.33 Tobacco abuse Z72.0 Metabolic acidosis E87.20 Lactic acidosis E87.20 Hyperkalemia E87.5 Hyponatremia E87.1 Goals of care, counseling/discussion Z71.89 Staphylococcus aureus pneumonia J15.211 Rhabdomyolysis M62.82 Shock liver K72.00 HHS (hypothenar hammer syndrome) I73.89 Gram-positive bacteremia R78.81 Uremia N19
[2023-08-23 17:13] LABS: Glucose Point of Care 370 mg/dL (70-110)
[2023-08-23] MEDS: atorvastatin 40 mg Tablet 80 MG PO (17:26)
[2023-08-23] MEDS: acetaminophen 325 mg Tablet 650 MG PO (20:51)
[2023-08-23 22:15] LABS: Glucose Point of Care 366 mg/dL (70-110)
[2023-08-24] VITALS (41 sets, daily range): BP systolic 96–138; BP diastolic 63–94; PULSE 85–118; RESP 17–33; TEMP 36.6–36.7; O2SAT 93–100
[2023-08-24] MEDS: ipratropium-albuterol 3 mL Neb INHALATION ×5 (00:53→19:51)
[2023-08-24 04:37] LABS: Basophils # 0.1 10^3/uL (0.0-0.1); Basophils % 0.9 %; Eosinophils # 1.3 10^3/uL (0.0-0.8); Hematocrit 33.1 % (37-53); Lymphocytes # 0.3 10^3/uL (0.8-4.8); Lymphocytes % 3.9 %; Mean Corpuscular HGB Conc 31.7 g/dL (30-55); Mean Corpuscular Hemoglobin 28.8 pg (27-33); Mean Corpuscular Volume 90.9 fl (82-101); Mean Platelet Volume 11.1 fL (7.4-10.4); Monocytes # 0.3 10^3/uL (0.2-0.9); Monocytes % 4.9 %; Neutrophils # 4.96 10^3/uL (1.8-7.7); Neutrophils % 71.3 %; Nucleated Red Blood Cells % 0 %; Platelet Count 238 10^3/cmm (157-399); Red Blood Count 3.64 10^6/uL (3.85-5.65); Red Cell Distribution Width 16.9 % (12.1-15.1); White Blood Count 6.95 10^3/uL (3.29-11.43)
[2023-08-24] MEDS: ceFAZolin 2,000 MG in sodium chloride 0.9% (plus) 50 ML 100 MG IV ×3 (04:51→19:31)
[2023-08-24 04:59] LABS: Albumin Level 3.4 g/dL (3.5-5.2); Alkaline Phosphatase 91 U/L (40-130); Blood Urea Nitrogen 52 mg/dL (6-20); C Reactive Protein 78.7 mg/L (0.0-4.9); Calcium 8.8 mg/dL (8.5-10.5); Carbon Dioxide 28 mmol/L (22-29); Chloride 101 mmol/L (98-107); Globulin 3.4 g/dL (1.3-4.6); Glomerular Filtration Rate 51.9 mL/min (90-130); Glucose 410 mg/dL (65-115); Magnesium 2.2 mg/dL (1.7-2.3); Osmolality Calculated 323 mOsm/kg (285-295); Phosphorus 2.8 mg/dL (2.5-4.5); Sodium 141 mmol/L (136-145); Total Bilirubin 1.1 mg/dL (0.15-1.2); Total Protein 6.8 g/dL (6.6-8.7)
[2023-08-24] MEDS: levothyroxine 50 mcg Tablet PO (05:04)
[2023-08-24] MEDS: aspirin 81 mg EC Tablet PO (05:04)
[2023-08-24] MEDS: insulin glargine 100 units/1 mL 10 UNIT SUBCUT ×2 (05:04→17:57)
[2023-08-24 05:05] LABS: NT Pro B Type Natriuretic Pept 7053 pg/mL (0-125); Procalcitonin 1.57 ng/mL (0-0.5)
--- NOTE | 2023-08-24 05:13 | PC.NURSE ---
Pt repeatedly asked if he would like to be repositioned. Pt repeatedly declined throughout entire shift. Pt educated on the need for movement. Pt stated: I don't care. Don't touch me.
[2023-08-24 05:26] LABS: Alanine Aminotransferase 43 U/L (0-41); Anion Gap 17.2 (5-19); Aspartate Amino Transferase 34 U/L (0-40); Potassium 5.2 mmol/L (3.5-5.1)
--- NOTE | 2023-08-24 07:00 | XRR_ITS ---
PROCEDURE INFORMATION: Exam: XR Chest Exam date and time: 08/24/2023 9:08 AM Age: 58 years old Clinical indication: Shortness of breath; Additional info: SOB TECHNIQUE: Imaging protocol: Radiologic exam of the chest. Views: 1 view. COMPARISON: CR XR chest 1V portable [id number] 08/23/2023 1:41 PM FINDINGS: Tubes, catheters and devices: There is a right-sided PICC line projecting within the right atrium unchanged. Lungs: There is increasing haziness and ground-glass opacification projecting over the lower lung zones likely in part secondary to layering of enlarging bilateral pleural effusions that a may be cardiogenic in nature. Pulmonary vasculature is indistinct with peribronchial cuffing likely secondary to mild pulmonary congestion. Pleural spaces: See Lungs finding. Heart/Mediastinum: Heart is enlarged, unchanged. ICD monitor unchanged in position. Pulmonary vascular distribution indicating elevated central venous pressure. Bones/joints: Unremarkable for age. XR/XR chest 1V portable [id number] IMPRESSION: Cardiomegaly with mild CHF pattern progressed from previous exam.
[2023-08-24 07:46] LABS: Glucose Point of Care 364 mg/dL (70-110)
[2023-08-24] MEDS: insulin lispro 100 unit/1 mL SUBCUT ×4 (08:08→20:49)
[2023-08-24] MEDS: ticagrelor 90 mg Tablet PO ×2 (08:13→17:35)
[2023-08-24] MEDS: amiodarone 200 mg Tablet 400 MG PO ×2 (08:13→17:36)
[2023-08-24] MEDS: apixaban 5 mg Tablet PO ×2 (08:13→20:48)
[2023-08-24] MEDS: sennosides-docusate Tablet 2 TAB PO ×2 (08:29→17:36)
[2023-08-24] MEDS: polyethylene glycol 3350 Pkt 17 gm PO ×2 (08:29→17:57)
[2023-08-24] MEDS: FUROsemide 10 mg/mL SDV 4mL 40 MG IVP ×2 (08:42→17:58)
--- NOTE | 2023-08-24 10:02 | PC.OT ---
Refused OT this a.m. in spite of maximal encouragement. Will attempt again later today.
[2023-08-24] MEDS: AA-Dex 5%-20% w/Lytes 1,000 ML 73 ML IV (10:30)
--- NOTE | 2023-08-24 11:31 | P.PN_ITS ---
Subjective 2 Subjective: on 2 L NC Medications: Reviewed: Yes Vitals/I&O/Wt Last Vital Signs Temp 97.9 F 08/24/23 07:00 Pulse 99 08/24/23 11:00 Resp 27 H 08/24/23 11:00 BP 102/80 08/24/23 11:00 Pulse Ox 95 08/24/23 11:00 O2 Del Method Nasal Cannula 08/24/23 11:00 O2 Flow Rate 3 08/24/23 11:00 FiO2 30 08/24/23 07:50 08/23/23 08/24/23 08/24/23 22:59 06:59 14:59 Intake Total 1550 / 2550 155 / 2705 1083.816 / 1083.816 Output Total 1750 / 1750 850 / 850 Balance 1550 / 2550 -1595 / 955 233.816 / 233.816 Weight last 48 hrs Weight 130 kg Physical Exam 2 Narrative: AWAKE , ALERT NO DISTRESS Urinary Catheter Management: Burciaga: Cath Placed During This Visit: yes Reason for Continuing Indwelling Catheter: Accurate Measurement of Urinary Output in Critically Ill Patients Urinary Catheter Date of Insertion: 08/11/23 Urinary Catheter Time of Insertion: 12:38 Data 08/24/23 03:49 08/24/23 03:49 Micro: Microbiology 08/20/23 18:07 Urine Culture - Final Urine Catheterized A&P Assessment and plan (1) Acute renal failure: Qualifiers: Acute renal failure type: unspecified Qualified Code(s): N17.9 - Acute kidney failure, unspecified Plan 1. Acute kidney injury, in the setting of shock, cardiac arrest. Baseline creatinine was normal in November 2022. 2. COVID, multifocal pneumonia,- Extubated 3. Hyponatremia, hypervolemic, 4. Metabolic acidosis 5. Hyperphosphatemia: recommended change tube feed to nephro, 6. History of COPD, coronary artery disease, obesity Plan: renal function improving , PRN IV lasix , encourage po intake Attestations 2 Medical Necessity Statement*: per medicine Coding Level of Care Code Acute Code for [facility] Fwd Diagnoses Acute renal failure, unspecified acute renal failure type N17.9 Acute renal failure type: unspecified
[2023-08-24 11:45] LABS: Glucose Point of Care 326 mg/dL (70-110)
--- NOTE | 2023-08-24 15:10 | PC.NURSE ---
Heart rate elevated, up to 115 now. Pt has labored breathing. RT hanged pt over to BiPap at this time. Pt's work of breathing eased up and heart rate back to 90's.
--- NOTE | 2023-08-24 16:20 | P.PN_ITS ---
Subjective 2 Subjective: Patient was seen this morning, he is much more alert and awake to person, to place, not to time he can follow commands, he tells me he wants to try to eat something, he has more energy Vitals/I&O/Wt Last Vital Signs Temp 98 F 08/24/23 13:00 Pulse 98 08/24/23 15:00 Resp 30 H 08/24/23 15:00 BP 132/92 08/24/23 15:00 Pulse Ox 96 08/24/23 15:00 O2 Del Method BiPAP 08/24/23 15:00 O2 Flow Rate 3 08/24/23 14:00 FiO2 30 08/24/23 15:00 08/24/23 08/24/23 08/24/23 06:59 14:59 22:59 Intake Total 155 / 2705 1383.816 / 1383.816 Output Total 1750 / 1750 2900 / 2900 Balance -1595 / 955 -1516.184 / -1516.184 Weight last 48 hrs Weight 130 kg Physical Exam 2 Const: COMMON NORMALS: no acute distress ORIENTATION/CONSCIOUSNESS: Yes awake, Yes oriented to person and Yes oriented to place; not oriented to time Resp: COMMON NORMALS: normal respiratory effort, No retractions, No use of accessory muscles and clear to auscultation bilaterally AUSCULTATION: clear to auscultation bilaterally Cardio: COMMON NORMALS: regular rate, regular rhythm, S1 normal heart sound present and S2 normal heart sound present RATE: regular rate RHYTHM: r egular rhythm HEART SOUNDS: S1 normal heart sound present and S2 normal heart sound present GI: COMMON NORMALS: Normal to inspection, nondistended, normoactive bowel sounds present and non-tender Neuro: SENSORIUM/ORIENTATION: Yes oriented to person, Yes oriented to place and No oriented to time Psych: COMMON NORMALS: mental status grossly normal Urinary Catheter Management: Burciaga: Cath Placed During This Visit: yes Reason for Continuing Indwelling Catheter: Accurate Measurement of Urinary Output in Critically Ill Patients Urinary Catheter Date of Insertion: 08/11/23 Urinary Catheter Time of Insertion: 12:38 Data 08/24/23 03:49 08/24/23 03:49 Micro: Microbiology 08/20/23 18:07 Urine Culture - Final Urine Catheterized A&P Assessment and plan (1) Acute encephalopathy: (2) Pneumonia due to COVID-19 virus: (3) Multifocal pneumonia: (4) Acute renal failure: Qualifiers: Acute renal failure type: unspecified Qualified Code(s): N17.9 - Acute kidney failure, unspecified (5) Septic shock: (6) Multiorgan failure: (7) Acute hypoxic respiratory failure: (8) V-tach: (9) Shock: (10) NSTEMI (non-ST elevated myocardial infarction): (11) CAPRI (acute kidney injury): (12) 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 2 diabetes mellitus: (13) Morbid obesity: (14) CAD (coronary artery disease): (15) ICD (implantable cardioverter-defibrillator) in place: (16) Sustained ventricular tachycardia: (17) CHF (congestive heart failure): (18) Ischemic cardiomyopathy: (19) Systolic CHF, acute: (20) COPD (chronic obstructive pulmonary disease): (21) Obstructive sleep apnea: (22) Tobacco abuse: (23) Metabolic acidosis: (24) Lactic acidosis: (25) Hyperkalemia: (26) Hyponatremia: (27) Goals of care, counseling/discussion: (28) Staphylococcus aureus pneumonia: (29) Rhabdomyolysis: (30) Shock liver: (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 Likely component of hyponatremia, uremia, sepsis ? Some component related to sedating medications such as Versed, -concerns for anoxic brain injury, ?continue neurochecks, ? Monitor mentation closely, ? CT of the head IMPRESSION: 1. No evidence of intracranial hemorrhage or mass effect. 2. Mild small vessel changes with mild parenchymal volume loss. 3. Diffuse paranasal sinusitis with air-fluid levels. 4. No acute intracranial findings. -neurology consulted Ventricular tachycardia ? Status post cardioversion, Versed, fentanyl, -Cardiology consulted A-fib with RVR -Seen on telemetry -On po amiodarone - eliquis tonight Hyperglycemia with concern for HHS, increased anion gap 24.7,resolved ? on subcut insulin ? Monitor blood sugars ? Monitor anion gap, ? Monitor potassium Shock liver, resolving ? Likely sec to septic shock ?continue to monitor closely NSTEMI -According to family, coronary angiography done at the [facility], was within normal limits, stents no significant obstruction, no intervention required he also had a pacemaker check about a month ago which was within normal limits -Serial EKGs, starting troponins, telemetry monitoring, ? Aspirin, statin, Brilinta ?cardiac echo ? Completed 48 hours of heparin drip, switch to subcu heparin ?cardiology consulted Acute hypoxic respiratory failure ? Likely secondary to COVID-19 pneumonia, multifocal bacterial pneumonia, Staph aureus pneumonia ? Some component related to systolic CHF, fluid overload ? Plan -Monitor respiratory status closely, ? -on cefazolin ? Completed remdesivir, ? Follow blood cultures, sputum cultures ? eliquis ?extubated -on nasal cannula -bipap during the night ? , Precedex for sedation, -Pulmonary consulted Gram-positive bacteremia, staph lundgensus ? cefazolin -Repeat blood cultures negative so far COVID-19 pneumonia, ? completed remdesivir, ? completed steroids Multifocal bacterial pneumonia, Staph aureus positive sputum cultures ? As above Septic shock, resolved -COVID-19, dialysis, currently on 9 of levophed ? Currently on Levophed ? Off vasopressin ? off epinephrine drip ? Scheduled albumin ? Follow cultures Acute renal failure ? Likely secondary to sepsis, septic shock, COVID-19 ? Consulted nephrology, ? dialysis catheter placement, -Issues with CRRT machine ? Monitor urine output, lackluster for the last 24-48 hrs. ? Plan on diureses Metabolic acidosis resolved ? Likely secondary to sepsis, septic shock, acute renal failure, next Lactic acidosis resolved ? Likely sec to sepsis, Hyperkalemia, resolving ? Status post D50, insulin, calcium gluconate Type 2 diabetes mellitus, blood sugars remain uncontrolled, low-dose Lantus, COPD, no active wheezing, DO NOT INTUBATE, okay with CPR, drugs per ACLS ? Protonix for GI prophylaxis, ? Heparin for DVT prophylaxis, ? Prognosis guarded, status stable -Plan for today, 2 doses of IV Lasix, wean off peripheral nutrition as oral nutrition improves Attestations 2 Medical Necessity Statement*: Patient requires hospitalization for staph pneumonia, COVID-19, now with encephalopathy, fluid overload requiring diuresis, Diagnoses Acute encephalopathy G93.40 Pneumonia due to COVID-19 virus U07.1; J12.82 Multifocal pneumonia J18.9 Acute renal failure, unspecified acute renal failure type N17.9 Acute renal failure type: unspecified Septic shock A41.9; R65.21 Multiorgan failure Acute hypoxic respiratory failure J96.01 V-tach I47.20 Shock R57.9 NSTEMI (non-ST elevated myocardial infarction) I21.4 CAPRI (acute kidney injury) N17.9 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 2 diabetes mellitus E11.22; N18.2 Morbid obesity E66.01 Coronary artery disease involving [place] coronary artery of [place] heart without angina pectoris I25.10 ICD (implantable cardioverter-defibrillator) in place Z95.810 Sustained ventricular tachycardia I47.20 Acute on chronic systolic congestive heart failure I50.9 Ischemic cardiomyopathy I25.5 Systolic CHF, acute I50.21 COPD (chronic obstructive pulmonary disease) J44.9 Obstructive sleep apnea G47.33 Tobacco abuse Z72.0 Metabolic acidosis E87.20 Lactic acidosis E87.20 Hyperkalemia E87.5 Hyponatremia E87.1 Goals of care, counseling/discussion Z71.89 Staphylococcus aureus pneumonia J15.211 Rhabdomyolysis M62.82 Shock liver K72.00 HHS (hypothenar hammer syndrome) I73.89 Gram-positive bacteremia R78.81 Uremia N19
[2023-08-24] MEDS: pantoprazole 40 mg SDV IVP (16:46)
[2023-08-24 17:18] LABS: Glucose Point of Care 315 mg/dL (70-110)
[2023-08-24] MEDS: atorvastatin 40 mg Tablet 80 MG PO (17:35)
[2023-08-24] MEDS: acetaminophen 325 mg Tablet 650 MG PO (17:38)
--- NOTE | 2023-08-24 18:30 | PC.NURSE ---
Shift summary: Pt rested in bed for most of the shift. At end of shift PT worked with hi and he sat with assistance on side of bed for at least 10 minutes. It wore him out. He had been using O2 at 3lpm/NC for majority of shift, he started getting tire around 1430, Switched to BiPap at 30%, 1730 back to nasal cannula then at 1815 back to BiPap. His blood sugars have been very elveated requiring 14units at each check, in addition to Lantus. TPN infusing at 83ml/hr at beginning of shift, orders to decrease in 8 hour intervas 10ml/hr. It is now infusing at 63ml/hr. He picked t his meals. He is able to swallow pills with ease. His had remain very edematous and he is very reluctant to make fists/extend fingers to improve edema. He has made a few attempt to grasp water cup off his bedside table when staff not in room. He is not very self motivated to initiate movements on his own. He has had a total of 4055 of urine output this sift. NO Bms noted.
[2023-08-24 20:26] LABS: Glucose Point of Care 346 mg/dL (70-110)
[2023-08-25] VITALS (41 sets, daily range): BP systolic 97–171; BP diastolic 61–117; PULSE 79–123; RESP 16–38; TEMP 36–37.5; O2SAT 87–99; BMI 47.7
[2023-08-25] MEDS: ipratropium-albuterol 3 mL Neb INHALATION ×5 (00:30→19:50)
[2023-08-25] MEDS: AA-Dex 5%-20% w/Lytes 1,000 ML 53 ML IV (02:09)
[2023-08-25 04:30] LABS: Basophils # 0.1 10^3/uL (0.0-0.1); Basophils % 0.7 %; Eosinophils % 10.9 %; Hematocrit 32.5 % (37-53); Lymphocytes # 0.5 10^3/uL (0.8-4.8); Lymphocytes % 5.6 %; Mean Corpuscular HGB Conc 32.3 g/dL (30-55); Mean Corpuscular Hemoglobin 29.1 pg (27-33); Mean Platelet Volume 10.9 fL (7.4-10.4); Monocytes # 0.7 10^3/uL (0.2-0.9); Monocytes % 7.8 %; Neutrophils # 6.82 10^3/uL (1.8-7.7); Neutrophils % 74.7 %; Nucleated Red Blood Cells % 0 %; Platelet Count 227 10^3/cmm (157-399); Red Blood Count 3.61 10^6/uL (3.85-5.65); Red Cell Distribution Width 16.7 % (12.1-15.1); White Blood Count 9.12 10^3/uL (3.29-11.43)
[2023-08-25 05:01] LABS: NT Pro B Type Natriuretic Pept 9376 pg/mL (0-125); Procalcitonin 0.87 ng/mL (0-0.5)
[2023-08-25] MEDS: ceFAZolin 2,000 MG in sodium chloride 0.9% (plus) 50 ML 100 MG IV ×3 (05:37→19:44)
[2023-08-25] MEDS: insulin glargine 100 units/1 mL 10 UNIT SUBCUT (05:38)
[2023-08-25] MEDS: levothyroxine 50 mcg Tablet PO (05:38)
[2023-08-25] MEDS: aspirin 81 mg EC Tablet PO (05:38)
--- NOTE | 2023-08-25 06:52 | P.PN_ITS ---
Subjective 2 Subjective: On BIBAP 30% Medications: Reviewed: Yes Vitals/I&O/Wt Last Vital Signs Temp 97.6 F 08/25/23 04:00 Pulse 79 08/25/23 06:00 Resp 19 H 08/25/23 06:00 BP 117/68 08/25/23 06:00 Pulse Ox 96 08/25/23 06:00 O2 Del Method BiPAP 08/25/23 06:00 O2 Flow Rate 3 08/25/23 04:57 FiO2 30 08/25/23 04:48 08/24/23 08/24/23 08/25/23 14:59 22:59 06:59 Intake Total 1383.816 / 1383.816 748.95 / 2132.766 551.05 / 2683.816 Output Total 2900 / 2900 2475 / 5375 1100 / 6475 Balance -1516.184 / -1516.184 -1726.05 / -3242.234 -548.95 / -3791.184 Weight last 48 hrs Weight 129.983 kg Physical Exam 2 Narrative: AWAKE , ALERT NO DISTRESS Urinary Catheter Management: Burciaga: Cath Placed During This Visit: yes Reason for Continuing Indwelling Catheter: Accurate Measurement of Urinary Output in Critically Ill Patients Urinary Catheter Date of Insertion: 08/11/23 Urinary Catheter Time of Insertion: 12:38 Data 08/25/23 04:03 08/25/23 09:05 Micro: Microbiology 08/23/23 14:00 Catheter Tip Culture - Preliminary Central Line A&P Assessment and plan (1) Acute renal failure: Qualifiers: Acute renal failure type: unspecified Qualified Code(s): N17.9 - Acute kidney failure, unspecified Plan 1. Acute kidney injury, in the setting of shock, cardiac arrest. Baseline creatinine was normal in November 2022. 2. COVID, multifocal pneumonia,- Extubated 3. Hyponatremia, hypervolemic, 4. Metabolic acidosis 5. Hyperphosphatemia: recommended change tube feed to nephro, 6. History of COPD, coronary artery disease, obesity Plan: uop improved ,renal function improving , PRN IV lasix , encourage po intake Attestations 2 Medical Necessity Statement*: per [facility] Coding Level of Care Code Acute Code for [facility] Fwd Diagnoses Acute renal failure, unspecified acute renal failure type N17.9 Acute renal failure type: unspecified
[2023-08-25 06:56] LABS: Glucose Point of Care 376 mg/dL (70-110)
[2023-08-25 07:23] LABS: C Reactive Protein 50.9 mg/L (0.0-4.9)
--- NOTE | 2023-08-25 07:45 | PC.NURSE ---
0700 :Critical glucose level 1248 received. This nurse suspects TPN was still infusing at time of blood draw as the finger stick was 376 mg/dl at nearly the same time. Notified lab of probably error and re draw ordered. Notified Dr Mcgraw of probable error. Ok to recheck BMP, mag and phos. Finger stick Blood sugar recheck was 396mg/ml, confirms this suspicion.
[2023-08-25 08:14] LABS: Glucose Point of Care 396 mg/dL (70-110)
[2023-08-25] MEDS: apixaban 5 mg Tablet PO ×2 (09:13→20:44)
[2023-08-25] MEDS: polyethylene glycol 3350 Pkt 17 gm PO ×2 (09:13→17:50)
[2023-08-25] MEDS: ticagrelor 90 mg Tablet PO ×2 (09:13→17:50)
[2023-08-25] MEDS: amiodarone 200 mg Tablet 400 MG PO ×2 (09:13→17:50)
[2023-08-25] MEDS: sennosides-docusate Tablet 2 TAB PO ×2 (09:13→17:50)
[2023-08-25] MEDS: insulin glargine 100 units/1 mL 5 UNIT SUBCUT (09:16)
[2023-08-25] MEDS: FUROsemide 10 mg/mL SDV 4mL 40 MG IVP ×2 (09:16→20:42)
[2023-08-25] MEDS: insulin lispro 100 unit/1 mL SUBCUT ×4 (09:17→20:44)
[2023-08-25] MEDS: albumin 25 G/100 ML BAG 60 G IV (09:17)
[2023-08-25 09:49] LABS: Blood Urea Nitrogen 50 mg/dL (6-20); Calcium 9.5 mg/dL (8.5-10.5); Carbon Dioxide 32 mmol/L (22-29); Chloride 99 mmol/L (98-107); Free T4 Free Thyroxine 1.06 ng/dL (0.82-1.77); Glucose 368 mg/dL (65-115); Osmolality Calculated 322 mOsm/kg (285-295); Sodium 142 mmol/L (136-145); T3 Free 1.4 PG/ML (2.0-4.4); Thyroid Stimulating Hormone 13.34 uIU/mL (0.27-4.20)
[2023-08-25 09:51] LABS: Anion Gap 14.9 (5-19); Potassium 3.9 mmol/L (3.5-5.1)
[2023-08-25 12:03] LABS: Glucose Point of Care 311 mg/dL (70-110)
[2023-08-25 12:06] LABS: Magnesium 2.1 mg/dL (1.7-2.3); Phosphorus 2.3 mg/dL (2.5-4.5)
[2023-08-25] MEDS: fluoxetine 20 mg Capsule PO (13:04)
[2023-08-25 17:09] LABS: Glucose Point of Care 271 mg/dL (70-110)
[2023-08-25] MEDS: pantoprazole 40 mg SDV IVP (17:33)
[2023-08-25] MEDS: AA-Dex 5%-20% w/Lytes 1,000 ML 40 ML IV (17:47)
[2023-08-25] MEDS: insulin glargine 100 units/1 mL 15 UNIT SUBCUT (17:49)
[2023-08-25] MEDS: atorvastatin 40 mg Tablet 80 MG PO (17:50)
--- NOTE | 2023-08-25 19:30 | PC.NURSE ---
Shift summary: Pt using BiPap again this am at 30% FIO2. Switched him to 3lpm/NC. He demanded drinks of water. He is able to lift his right hand and loosely grasp cup. He was able to swallow am meds without difficulty. Lungs sounds were more wheezy today the right worse than left. Left sounded clearer. He demanded to have BiPap back on, then requested his cup of water. Explained to him he could not drink with the BiPap on. He said the straw could just slip under the mask. advised pt that would increase his risk of aspiration, he could have nasal cannula back on to sip water OR wear the BiPap. Pt has a small temper tantrum, he was moving all 4 extremities during it. He refused OT and PT in am. He refused to get out of bed in am. He refused all his meals, but did drink his juices today. Later in the afternoon he demanded to get up. He would not reply on specifics: HOB up or out of bed. We used Prevnar delisa and special chair to assist pt (total assist) to sit up in chair. He demanded to go back to bed in less than 15 minutes. Pt encouraged and explained why sitting up was so beneficial, Pt closed his eyes during conversation and would not reply back. He had 2850 ml of urine output this shift. No Bms this shift. At report time he was back on the Biapap with FIO2 of 30%.
--- NOTE | 2023-08-25 19:35 | P.PN_ITS ---
Subjective 2 Subjective: patient was seen this morning, he is alert to person, to place, not to time he follows commands, is quite withdrawn, he is reluctant to persistent pain with physical therapy and speech therapy, I encouraged him to participate out of physical therapy, to get up out of bed with into a chair, will continue to diurese him, his appetite is a bit lackluster I would not cut down his peripheral nutrition in half, so that it could encourage his p.o. intake, he is agreeable, he was reexamined in the afternoon, diuresing well, -5 L, he did need BiPAP in the afternoon at times, I will plan on diuresing him more tonight, but he was up into a chair, Vitals/I&O/Wt Last Vital Signs Temp 97.8 F 08/25/23 13:00 Pulse 100 08/25/23 16:09 Resp 31 H 08/25/23 16:00 BP 129/78 08/25/23 16:00 Pulse Ox 97 08/25/23 16:09 O2 Del Method Nasal Cannula 08/25/23 16:00 O2 Flow Rate 3 08/25/23 16:00 FiO2 30 08/25/23 16:09 08/25/23 08/25/23 08/25/23 06:59 14:59 22:59 Intake Total 601.05 / 2733.816 1427.717 / 1427.717 502.500 / 1930.217 Output Total 1100 / 6475 2100 / 2100 750 / 2850 Balance -498.95 / -3741.184 -672.283 / -672.283 -247.500 / -919.783 Weight last 48 hrs Weight 129.983 kg Physical Exam 2 Const: COMMON NORMALS: no acute distress EXAM LIMITATIONS: altered mental status ORIENTATION/CONSCIOUSNESS: Yes awake, Yes oriented to person and Yes oriented to place; not oriented to time Resp: COMMON NORMALS: normal respiratory effort, No retractions, No use of accessory muscles and clear to auscultation bilaterally AUSCULTATION: clear to auscultation bilaterally Cardio: COMMON NORMALS: regular rate, regular rhythm, S1 normal heart sound present and S2 normal heart sound present RATE: regular rate RHYTHM: r egular rhythm HEART SOUNDS: S1 normal heart sound present and S2 normal heart sound present GI: COMMON NORMALS: Normal to inspection, nondistended, normoactive bowel sounds present and non-tender Extremity: COMMON NORMALS: no pedal edema Neuro: SENSORIUM/ORIENTATION: Yes oriented to person, Yes oriented to place and No oriented to time Urinary Catheter Management: Burciaga: Cath Placed During This Visit: yes Reason for Continuing Indwelling Catheter: Accurate Measurement of Urinary Output in Critically Ill Patients Urinary Catheter Date of Insertion: 08/11/23 Urinary Catheter Time of Insertion: 12:38 Data 08/25/23 04:03 08/25/23 09:05 Micro: Microbiology 08/23/23 14:00 Catheter Tip Culture - Final Central Line A&P Assessment and plan (1) Acute encephalopathy: (2) Pneumonia due to COVID-19 virus: (3) Multifocal pneumonia: (4) Acute renal failure: Qualifiers: Acute renal failure type: unspecified Qualified Code(s): N17.9 - Acute kidney failure, unspecified (5) Septic shock: (6) Multiorgan failure: (7) Acute hypoxic respiratory failure: (8) V-tach: (9) Shock: (10) NSTEMI (non-ST elevated myocardial infarction): (11) CAPRI (acute kidney injury): (12) 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 2 diabetes mellitus: (13) Morbid obesity: (14) CAD (coronary artery disease): (15) ICD (implantable cardioverter-defibrillator) in place: (16) Sustained ventricular tachycardia: (17) CHF (congestive heart failure): (18) Ischemic cardiomyopathy: (19) Systolic CHF, acute: (20) COPD (chronic obstructive pulmonary disease): (21) Obstructive sleep apnea: (22) Tobacco abuse: (23) Metabolic acidosis: (24) Lactic acidosis: (25) Hyperkalemia: (26) Hyponatremia: (27) Goals of care, counseling/discussion: (28) Staphylococcus aureus pneumonia: (29) Rhabdomyolysis: (30) Shock liver: (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 Likely component of hyponatremia, uremia, sepsis ? Some component related to sedating medications such as Versed, -concerns for anoxic brain injury, ?continue neurochecks, ? Monitor mentation closely, ? CT of the head IMPRESSION: 1. No evidence of intracranial hemorrhage or mass effect. 2. Mild small vessel changes with mild parenchymal volume loss. 3. Diffuse paranasal sinusitis with air-fluid levels. 4. No acute intracranial findings. -neurology consulted Ventricular tachycardia ? Status post cardioversion, Versed, fentanyl, -Cardiology consulted A-fib with RVR -Seen on telemetry -On po amiodarone - eliquis Hyperglycemia with concern for HHS, increased anion gap 24.7,resolved ? on subcut insulin ? Monitor blood sugars ? Monitor anion gap, ? Monitor potassium Shock liver, resolving ? Likely sec to septic shock ?continue to monitor closely NSTEMI -According to family, coronary angiography done at the [facility], was within normal limits, stents no significant obstruction, no intervention required he also had a pacemaker check about a month ago which was within normal limits -Serial EKGs, starting troponins, telemetry monitoring, ? Aspirin, statin, Brilinta ?cardiac echo ? Completed 48 hours of heparin drip, switch to subcu heparin ?cardiology consulted Acute hypoxic respiratory failure ? Likely secondary to COVID-19 pneumonia, multifocal bacterial pneumonia, Staph aureus pneumonia ? Some component related to systolic CHF, fluid overload ? Plan -Monitor respiratory status closely, ? -on cefazolin ? Completed remdesivir, ? Follow blood cultures, sputum cultures ? eliquis ?extubated -on nasal cannula -bipap during the night ? , Precedex for sedation, -Pulmonary consulted Gram-positive bacteremia, staph lundgensus ? cefazolin -Repeat blood cultures negative so far COVID-19 pneumonia, ? completed remdesivir, ? completed steroids Multifocal bacterial pneumonia, Staph aureus positive sputum cultures ? As above Septic shock, resolved -COVID-19, dialysis, currently on 9 of levophed ? Currently on Levophed ? Off vasopressin ? off epinephrine drip ? Scheduled albumin ? Follow cultures Acute renal failure ? Likely secondary to sepsis, septic shock, COVID-19 ? Consulted nephrology, ? dialysis catheter placement, -Issues with CRRT machine ? Monitor urine output, lackluster for the last 24-48 hrs. ? Plan on diureses Metabolic acidosis resolved ? Likely secondary to sepsis, septic shock, acute renal failure, next Lactic acidosis resolved ? Likely sec to sepsis, Hyperkalemia, resolving ? Status post D50, insulin, calcium gluconate Type 2 diabetes mellitus, blood sugars remain uncontrolled, low-dose Lantus, COPD, no active wheezing, DO NOT INTUBATE, okay with CPR, drugs per ACLS ? Protonix for GI prophylaxis, ? eliquis for DVT prophylaxis, ? Prognosis guarded, status stable -Plan for today, 2 doses of IV Lasix, wean ppn in 1/2, encourage po iuntake, up to a chair, add prozac for depression, Attestations 2 Medical Necessity Statement*: Patient requires hospitalization for acute hypoxic respiratory failure, Staph aureus pneumonia requiring diuresis, required IV antibiotics, requiring inpatient monitoring, intermittently BiPAP dependent Diagnoses Acute encephalopathy G93.40 Pneumonia due to COVID-19 virus U07.1; J12.82 Multifocal pneumonia J18.9 Acute renal failure, unspecified acute renal failure type N17.9 Acute renal failure type: unspecified Septic shock A41.9; R65.21 Multiorgan failure Acute hypoxic respiratory failure J96.01 V-tach I47.20 Shock R57.9 NSTEMI (non-ST elevated myocardial infarction) I21.4 CAPRI (acute kidney injury) N17.9 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 2 diabetes mellitus E11.22; N18.2 Morbid obesity E66.01 Coronary artery disease involving [place] coronary artery of [place] heart without angina pectoris I25.10 ICD (implantable cardioverter-defibrillator) in place Z95.810 Sustained ventricular tachycardia I47.20 Acute on chronic systolic congestive heart failure I50.9 Ischemic cardiomyopathy I25.5 Systolic CHF, acute I50.21 COPD (chronic obstructive pulmonary disease) J44.9 Obstructive sleep apnea G47.33 Tobacco abuse Z72.0 Metabolic acidosis E87.20 Lactic acidosis E87.20 Hyperkalemia E87.5 Hyponatremia E87.1 Goals of care, counseling/discussion Z71.89 Staphylococcus aureus pneumonia J15.211 Rhabdomyolysis M62.82 Shock liver K72.00 HHS (hypothenar hammer syndrome) I73.89 Gram-positive bacteremia R78.81 Uremia N19
[2023-08-25 20:43] LABS: Glucose Point of Care 216 mg/dL (70-110)
[2023-08-25] MEDS: lidocaine 1% 5 ML in potassium chloride premix 100 ML 52.5 ML IV (20:44)
[2023-08-26] VITALS (46 sets, daily range): BP systolic 102–162; BP diastolic 65–113; PULSE 90–136; RESP 15–42; TEMP 37.1–37.3; O2SAT 77–100
[2023-08-26] MEDS: ipratropium-albuterol 3 mL Neb INHALATION ×6 (00:09→20:27)
--- NOTE | 2023-08-26 00:40 | PC.NURSE ---
Spoke with Dr. daugherty regarding patient with worsening mentation, not speaking appears lethargic. Also HR afib in 130s. And left foot pulse unable to find with doppler, foot is cool with sluggish cap refill. ordered ABGs, metoprolol 2.5mh IVP for HR, and said monitor foot for worsening condtion and he will put in for ABIs for morning.
[2023-08-26 00:42] LABS: ABG PCO2 56.4 mmHg (35-45); ABG PH Result 7.44 (7.35-7.45); Alveolar-Arterial Oxygen Gradi 16.9 mmHg (5-10); Arterial Blood Gas Hematocrit 36.3 % (42-52); Base Excess ABG 11.8 mmol/L (-2.0-2.0); Blood Gas Allen Test Pos; Blood Gas Operator Identificat JB; Blood Gas Sample Site Radial, left; Blood Gas Sample Type Arterial; Carboxyhemoglobin 1.5 %THgb (0.4-20.1); HGB O2 Sat 94.8 % (95-100); Ionized Calcium Level - ABG 1.2 mmol/L (1.1-1.4); Methemoglobin 0.3 % (0.4-1.5); Oxygen Device BIPAP; Oxygen Saturation ABG 96.5; PO2 ABG 88.5 mmHg (80.0-100.0); PO2 FiO2 Ratio Arterial Blood 0; Potassium Level - ABG 3.5 mmol/L (3.5-5.0); Total Hemoglobin 11.8 g/dL (14-18)
[2023-08-26] MEDS: metoprolol tartrate 1 mg/1 mL SDV 5 mL 2.5 MG IVP (00:47)
[2023-08-26] MEDS: ceFAZolin 2,000 MG in sodium chloride 0.9% (plus) 50 ML 100 MG IV ×3 (03:29→20:35)
[2023-08-26 04:09] LABS: Basophils # 0.1 10^3/uL (0.0-0.1); Basophils % 0.9 %; Eosinophils # 1.1 10^3/uL (0.0-0.8); Eosinophils % 12.9 %; Hematocrit 33.6 % (37-53); Lymphocytes # 0.5 10^3/uL (0.8-4.8); Lymphocytes % 5.3 %; Mean Corpuscular Hemoglobin 28.7 pg (27-33); Mean Corpuscular Volume 92.6 fl (82-101); Mean Platelet Volume 11.1 fL (7.4-10.4); Monocytes # 0.5 10^3/uL (0.2-0.9); Monocytes % 6.2 %; Neutrophils # 6.47 10^3/uL (1.8-7.7); Neutrophils % 74.1 %; Nucleated Red Blood Cells % 0 %; Platelet Count 198 10^3/cmm (157-399); Red Blood Count 3.63 10^6/uL (3.85-5.65); Red Cell Distribution Width 16.8 % (12.1-15.1); White Blood Count 8.73 10^3/uL (3.29-11.43)
[2023-08-26] MEDS: levothyroxine 125 mcg Tablet 62.5 MCG PO (04:09)
[2023-08-26] MEDS: aspirin 81 mg EC Tablet PO (04:10)
[2023-08-26 04:31] LABS: Lactic Sepsis W/Reflex 1.5 mmol/L (0.5-2.2)
[2023-08-26 04:35] LABS: Alanine Aminotransferase 15 U/L (0-41); Albumin Level 3.9 g/dL (3.5-5.2); Alkaline Phosphatase 97 U/L (40-130); Blood Urea Nitrogen 49 mg/dL (6-20); C Reactive Protein 61.5 mg/L (0.0-4.9); Calcium 9.8 mg/dL (8.5-10.5); Carbon Dioxide 37 mmol/L (22-29); Chloride 99 mmol/L (98-107); Globulin 3.6 g/dL (1.3-4.6); Glucose 163 mg/dL (65-115); Osmolality Calculated 321 mOsm/kg (285-295); Phosphorus 2.7 mg/dL (2.5-4.5); Sodium 147 mmol/L (136-145); Total Bilirubin 1.5 mg/dL (0.15-1.2); Total Protein 7.5 g/dL (6.6-8.7)
[2023-08-26 04:40] LABS: Anion Gap 15.5 (5-19); Aspartate Amino Transferase 28 U/L (0-40); Potassium 4.5 mmol/L (3.5-5.1)
[2023-08-26 04:42] LABS: NT Pro B Type Natriuretic Pept 9689 pg/mL (0-125); Procalcitonin 0.83 ng/mL (0-0.5)
[2023-08-26] MEDS: insulin glargine 100 units/1 mL 15 UNIT SUBCUT (06:01)
[2023-08-26 08:22] LABS: Glucose Point of Care 263 mg/dL (70-110)
[2023-08-26] MEDS: apixaban 5 mg Tablet PO (09:18)
[2023-08-26] MEDS: ticagrelor 90 mg Tablet PO ×2 (09:18→17:48)
[2023-08-26] MEDS: amiodarone 200 mg Tablet 400 MG PO ×2 (09:18→17:48)
[2023-08-26] MEDS: polyethylene glycol 3350 Pkt 17 gm PO ×2 (09:19→17:49)
[2023-08-26] MEDS: insulin lispro 100 unit/1 mL SUBCUT ×2 (09:19→13:00)
[2023-08-26] MEDS: sennosides-docusate Tablet 2 TAB PO ×2 (09:19→17:48)
[2023-08-26] MEDS: fluoxetine 20 mg Capsule PO (09:19)
--- NOTE | 2023-08-26 11:07 | XR_ITS ---
WS: [id number] Exam: XR chest 1V portable [id number] Date/Time of Exam: 08/26/2023 11:09 AM Reason For Exam: dyspnea Comparison 08/22/2023 and 08/24/2023. Diffuse interstitial infiltrates with increased pulmonary vascularity noted likely representing some degree of pulmonary edema. Heart size top limits normal. No obvious pleural effusion. A RIGHT sided P ICC line appears to end in the RIGHT atrium. An ICD is noted on the LEFT. No pneumothorax. The medias tinum is normal in contour. Bony structures are intact. IMPRESSION: 1. Increased pulmonary vascularity with diffuse interstitial infiltrates probably representing some d egree of mild pulmonary edema. Interstitial pneumonia could have similar appearance. 2. No consolidating infiltrates or pneumothorax.
--- NOTE | 2023-08-26 11:43 | P.PN_ITS ---
Subjective 2 Subjective: UOP 4.5 L poor po intake tachypneic Medications: Reviewed: Yes Vitals/I&O/Wt Last Vital Signs Temp 98.8 F 08/26/23 04:00 Pulse 99 08/26/23 08:51 Resp 34 H 08/26/23 08:00 BP 123/80 08/26/23 06:00 Pulse Ox 99 08/26/23 08:00 O2 Del Method BiPAP 08/26/23 08:00 O2 Flow Rate 3 08/25/23 18:00 FiO2 30 08/26/23 08:00 08/25/23 08/26/23 08/26/23 22:59 06:59 14:59 Intake Total 897.500 / 2325.217 170 / 2495.217 100 / 100 Output Total 1500 / 3600 1600 / 5200 Balance -602.500 / -1274.783 -1430 / -2704.783 100 / 100 Weight last 48 hrs Weight 120.5 kg Weight 129.983 kg Physical Exam 2 Narrative: AWAKE , ALERT NO DISTRESS Urinary Catheter Management: Burciaga: Cath Placed During This Visit: yes Reason for Continuing Indwelling Catheter: Acute Urinary Retention or Obstruction Urinary Catheter Date of Insertion: 08/11/23 Urinary Catheter Time of Insertion: 12:38 Data 08/26/23 03:22 08/26/23 03:22 Micro: Microbiology 08/23/23 14:00 Catheter Tip Culture - Final Central Line A&P Assessment and plan (1) Acute renal failure: Qualifiers: Acute renal failure type: unspecified Qualified Code(s): N17.9 - Acute kidney failure, unspecified Plan 1. Acute kidney injury, in the setting of shock, cardiac arrest. Baseline creatinine was normal in November 2022. 2. COVID, multifocal pneumonia,- Extubated 3. Hyponatremia, hypervolemic, 4. Metabolic acidosis 5. Hyperphosphatemia: recommended change tube feed to nephro, 6. History of COPD, coronary artery disease, obesity Plan: Cr improved , good UOP , but still seems to have pulm edema on CXR , can give PRN lasix Na elevated ,monitor , encourage free water intake Attestations 2 Medical Necessity Statement*: per [facility] Coding Level of Care Code Acute Code for [facility] Fwd Diagnoses Acute renal failure, unspecified acute renal failure type N17.9 Acute renal failure type: unspecified
[2023-08-26] MEDS: sodium chloride 3.5% neb 4 mL Neb INHALATION ×2 (12:13→20:27)
[2023-08-26 12:39] LABS: Glucose Point of Care 205 mg/dL (70-110)
--- NOTE | 2023-08-26 17:34 | PC.OT ---
Patient declined OT services this date, stated, I am exhausted, want to skip it today. Nursing notified.
--- NOTE | 2023-08-26 17:35 | P.PN_ITS ---
Subjective 2 Subjective: Not feeling great. Would like to get up. Was feeling more dyspneic earlier this morning. Slightly better in the afternoon. Not able to bring up phlegm. Vitals/I&O/Wt Last Vital Signs Temp 98.8 F 08/26/23 04:00 Pulse 103 H 08/26/23 16:00 Resp 22 H 08/26/23 16:00 BP 159/90 08/26/23 16:00 Pulse Ox 91 08/26/23 16:00 O2 Del Method Heated High Flow 08/26/23 16:00 O2 Flow Rate 50 08/26/23 16:00 FiO2 35 08/26/23 16:00 08/26/23 08/26/23 08/26/23 06:59 14:59 22:59 Intake Total 170 / 2495.217 990 / 990 Output Total 1600 / 5200 1000 / 1000 Balance -1430 / -2704.783 -10 / -10 Weight last 48 hrs Weight 120.5 kg Weight 129.983 kg Physical Exam 2 Const: GENERAL APPEARANCE: cooperative NUTRITIONAL APPEARANCE: obese O RIENTATION/CONSCIOUSNESS: Yes awake OTHER: Weak HENMT: COMMON NORMALS: oropharynx normal Neck/C-Spine: COMMON NORMALS: no JVD Resp: COMMON NORMALS: normal respiratory effort AUSCULTATION: diminished lung sounds OTHER: Weak cough. Cardio: COMMON NORMALS: no JVD, regular rhythm, S1 normal heart sound present, S2 normal heart sound present and No murmurs present (Cardio) RHYTHM: regular rhythm HEART SOUNDS: S1 normal heart sound present and S2 normal heart sound present GI: COMMON NORMALS: Normal to inspection, nondistended, normoactive bowel sounds present, Soft to palpation and non-tender PALPATION: Yes Soft to palpation Extremity: COMMON NORMALS: no joint enlargement GENERAL: Yes edema (1+) Urinary Catheter Management: Burciaga: Cath Placed During This Visit: yes Reason for Continuing Indwelling Catheter: Acute Urinary Retention or Obstruction Urinary Catheter Date of Insertion: 08/11/23 Urinary Catheter Time of Insertion: 12:38 Data 08/26/23 03:22 08/26/23 03:22 A&P Assessment and plan (1) Acute encephalopathy: (2) Pneumonia due to COVID-19 virus: (3) Multifocal pneumonia: (4) Acute renal failure: Qualifiers: Acute renal failure type: unspecified Qualified Code(s): N17.9 - Acute kidney failure, unspecified (5) Septic shock: (6) Multiorgan failure: (7) Acute hypoxic respiratory failure: (8) V-tach: (9) Shock: (10) NSTEMI (non-ST elevated myocardial infarction): (11) CAPRI (acute kidney injury): (12) 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 2 diabetes mellitus: (13) Morbid obesity: (14) CAD (coronary artery disease): (15) ICD (implantable cardioverter-defibrillator) in place: (16) Sustained ventricular tachycardia: (17) CHF (congestive heart failure): (18) Ischemic cardiomyopathy: (19) Systolic CHF, acute: (20) COPD (chronic obstructive pulmonary disease): (21) Obstructive sleep apnea: (22) Tobacco abuse: (23) Metabolic acidosis: (24) Lactic acidosis: (25) Hyperkalemia: (26) Hyponatremia: (27) Goals of care, counseling/discussion: (28) Staphylococcus aureus pneumonia: (29) Rhabdomyolysis: (30) Shock liver: (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 Tachypneic. Sounding wet. Heavy mucus but having difficulty bringing it up. Chest x-ray requested. Discussed with respiratory therapy. Reviewed NT-proBNP, noted with worsening compared to prior. Reviewed echocardiogram, noted ejection fraction low in the 30s. Reviewed ABG. Discussed with tow motor driver. Chest x- ray coming back with congestive changes. Suspected CHF exacerbation with respiratory failure, respiratory distress. Held parenteral nutrition infusion. Discussed with nephrology. Received Lasix last night. Consider Lasix for today, although does appear to produce good amount of urine, possibly polyuria with recovery after CAPRI. Monitor I&O and weights. He is on 20 kg, on presentation was 114 kg. Added chest vest, hypertonic saline nebs. Continue pulmonary toilet. Switch from BiPAP to heated high flow cannula for now. Reviewed sputum culture, noted Staph aureus, MSSA. Continues on cefazolin. ? Precedex as needed for anxiety Acute encephalopathy, -Previously reported with improvement. -has cognitive slowing ? Likely component of hyponatremia, uremia, sepsis -concerns for anoxic brain injury, ?continue neurochecks, ? Monitor mentation closely, ? CT of the head IMPRESSION: 1. No evidence of intracranial hemorrhage or mass effect. 2. Mild small vessel changes with mild parenchymal volume loss. 3. Diffuse paranasal sinusitis with air-fluid levels. 4. No acute intracranial findings. -neurology consulted Ventricular tachycardia ? Status post cardioversion -Cardiology consulted A-fib with RVR -Seen on telemetry -On po amiodarone - eliquis Hyperglycemia with concern for HHS, increased anion gap 24.7,resolved ? subcut insulin ? Monitor blood sugars ? Monitor anion gap, ? Monitor potassium Shock liver, resolving. Reviewed liver parameters. ? Likely sec to septic shock ?continue to monitor closely NSTEMI -According to family, coronary angiography done at the [facility], was within normal limits, stents no significant obstruction, no intervention required he also had a pacemaker check about a month ago which was within normal limits -Serial EKGs, starting troponins, telemetry monitoring, ? Aspirin, statin, Brilinta ?cardiac echo reviewed ?Lovenox ?cardiology consulted Gram-positive bacteremia, staph lundgensus ? cefazolin -Repeat blood cultures negative so far COVID-19 pneumonia, ? completed remdesivir, ? completed steroids D-dimer elevated: Marked elevation of D-dimer presentation. Difficult to tell if entirely explained by COVID-19. Previous angiogram chest without PE. Worsening respiratory distress, respiratory failure today. Switched from Eliquis to therapeutic Lovenox. Currently not a good candidate for such angiogram due to recent renal dysfunction. Could not cooperate with VQ scan. Empiric anticoagulation for now until can be better assessed. Multifocal bacterial pneumonia, Staph aureus positive sputum cultures ? As above Septic shock, resolved Acute renal failure: Reviewed renal parameters, with gradual improvement. Discussed with margin clerk. Producing urine. Metabolic acidosis resolved ? Likely secondary to sepsis, septic shock, acute renal failure, next Lactic acidosis resolved ? Likely sec to sepsis, Hyperkalemia, resolved Type 2 diabetes mellitus, blood sugars remain uncontrolled, low-dose Lantus, COPD, no active wheezing, DO NOT INTUBATE, okay with CPR, drugs per ACLS ? Protonix for GI prophylaxis, ? Prognosis guarded Attestations 2 Medical Necessity Statement*: Continue admission for assessment of management of worsened respiratory failure. Coding Level of Care Code Critical Care >/= 30 minutes Critical care time (in minutes): 40 The high probability of a clinically significant, sudden or life threatening deterioration, as referenced in this documentation, required my full and direct attention, intervention and personal management. The critical care time shown is in addition to time spent performing any reported separately billable procedures and includes the following: [x] Data and vital sign review and interpretation [x ] Patient assessment, examination and intervention [x] Medication orders and management [x] Patient/Family updates as able [x] Care Coordination and Documentation. Diagnoses Acute encephalopathy G93.40 Pneumonia due to COVID-19 virus U07.1; J12.82 Multifocal pneumonia J18.9 Acute renal failure, unspecified acute renal failure type N17.9 Acute renal failure type: unspecified Septic shock A41.9; R65.21 Multiorgan failure Acute hypoxic respiratory failure J96.01 V-tach I47.20 Shock R57.9 NSTEMI (non-ST elevated myocardial infarction) I21.4 CAPRI (acute kidney injury) N17.9 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 2 diabetes mellitus E11.22; N18.2 Morbid obesity E66.01 Coronary artery disease involving [place] coronary artery of [place] heart without angina pectoris I25.10 ICD (implantable cardioverter-defibrillator) in place Z95.810 Sustained ventricular tachycardia I47.20 Acute on chronic systolic congestive heart failure I50.9 Ischemic cardiomyopathy I25.5 Systolic CHF, acute I50.21 COPD (chronic obstructive pulmonary disease) J44.9 Obstructive sleep apnea G47.33 Tobacco abuse Z72.0 Metabolic acidosis E87.20 Lactic acidosis E87.20 Hyperkalemia E87.5 Hyponatremia E87.1 Goals of care, counseling/discussion Z71.89 Staphylococcus aureus pneumonia J15.211 Rhabdomyolysis M62.82 Shock liver K72.00 HHS (hypothenar hammer syndrome) I73.89 Gram-positive bacteremia R78.81 Uremia N19
[2023-08-26 17:39] LABS: Glucose Point of Care 103 mg/dL (70-110)
[2023-08-26] MEDS: atorvastatin 40 mg Tablet 80 MG PO (17:49)
[2023-08-26] MEDS: pantoprazole 40 mg SDV IVP (17:49)
[2023-08-26 20:28] LABS: Glucose Point of Care 97 mg/dL (70-110)
[2023-08-26] MEDS: FUROsemide 10 mg/mL SDV 4mL 60 MG IVP (20:35)
[2023-08-26] MEDS: enoxaparin 120 mg/0.8 mL Syringe SUBCUT (20:36)
[2023-08-27] VITALS (38 sets, daily range): BP systolic 81–142; BP diastolic 54–90; PULSE 82–99; RESP 16–35; TEMP 36.4–37.1; O2SAT 0–97
[2023-08-27] MEDS: ipratropium-albuterol 3 mL Neb INHALATION ×7 (00:40→23:31)
[2023-08-27] MEDS: ceFAZolin 2,000 MG in sodium chloride 0.9% (plus) 50 ML 100 MG IV ×3 (03:39→20:43)
[2023-08-27 03:44] LABS: Basophils # 0.1 10^3/uL (0.0-0.1); Basophils % 0.8 %; Eosinophils # 0.8 10^3/uL (0.0-0.8); Eosinophils % 5.9 %; Hematocrit 30.9 % (37-53); Lymphocytes # 0.7 10^3/uL (0.8-4.8); Lymphocytes % 5.5 %; Mean Corpuscular Hemoglobin 29.6 pg (27-33); Mean Corpuscular Volume 92.2 fl (82-101); Mean Platelet Volume 11.1 fL (7.4-10.4); Monocytes # 0.9 10^3/uL (0.2-0.9); Neutrophils # 10.42 10^3/uL (1.8-7.7); Neutrophils % 80.2 %; Nucleated Red Blood Cells % 0 %; Platelet Count 178 10^3/cmm (157-399); Red Blood Count 3.35 10^6/uL (3.85-5.65); Red Cell Distribution Width 16.6 % (12.1-15.1); White Blood Count 13.01 10^3/uL (3.29-11.43)
[2023-08-27 05:33] LABS: Glucose Point of Care 136 mg/dL (70-110)
[2023-08-27] MEDS: aspirin 81 mg EC Tablet PO (05:33)
[2023-08-27] MEDS: levothyroxine 125 mcg Tablet 62.5 MCG PO (05:33)
[2023-08-27 06:38] LABS: Alanine Aminotransferase 8 U/L (0-41); Albumin Level 3.3 g/dL (3.5-5.2); Alkaline Phosphatase 82 U/L (40-130); Anion Gap 15.5 (5-19); Aspartate Amino Transferase 30 U/L (0-40); Blood Urea Nitrogen 45 mg/dL (6-20); Calcium 9.4 mg/dL (8.5-10.5); Carbon Dioxide 33 mmol/L (22-29); Chloride 99 mmol/L (98-107); Globulin 3.6 g/dL (1.3-4.6); Glucose 147 mg/dL (65-115); Osmolality Calculated 310 mOsm/kg (285-295); Potassium 4.5 mmol/L (3.5-5.1); Sodium 143 mmol/L (136-145); Total Bilirubin 1.6 mg/dL (0.15-1.2); Total Protein 6.9 g/dL (6.6-8.7)
--- NOTE | 2023-08-27 07:12 | P.PN_ITS ---
Subjective 2 Subjective: on BIPAP s/p IV lasix Medications: Reviewed: Yes Vitals/I&O/Wt Last Vital Signs Temp 98.4 F 08/27/23 00:54 Pulse 98 08/27/23 06:00 Resp 34 H 08/27/23 06:00 BP 133/77 08/27/23 06:00 Pulse Ox 95 08/27/23 06:00 O2 Del Method BiPAP 08/27/23 03:51 O2 Flow Rate 50 08/26/23 16:00 FiO2 30 08/27/23 03:51 08/26/23 08/27/23 08/27/23 22:59 06:59 14:59 Intake Total 715 / 1705 50 / 1755 Output Total 2310 / 3310 2175 / 5485 Balance -1595 / -1605 -2125 / -3730 Weight last 48 hrs Weight 120.5 kg Weight 120.5 kg Physical Exam 2 Narrative: AWAKE , ALERT NO DISTRESS Urinary Catheter Management: Burciaga: Cath Placed During This Visit: yes Reason for Continuing Indwelling Catheter: Accurate Measurement of Urinary Output in Critically Ill Patients Urinary Catheter Date of Insertion: 08/11/23 Urinary Catheter Time of Insertion: 12:38 Data 08/28/23 03:08 08/28/23 03:08 A&P Assessment and plan (1) Acute renal failure: Qualifiers: Acute renal failure type: unspecified Qualified Code(s): N17.9 - Acute kidney failure, unspecified Plan 1. Acute kidney injury, in the setting of shock, cardiac arrest. Baseline creatinine was normal in November 2022. 2. COVID, multifocal pneumonia,- Extubated 3. Hyponatremia, improved 4. Metabolic alkalosis 5. Hyperphosphatemia: improved 6. History of COPD, coronary artery disease, obesity Plan: Cr improved, , pulm edema on CXR , PRN lasix Attestations 2 Medical Necessity Statement*: per medicine Coding Level of Care Code Acute Code for [facility] Fwd Diagnoses Acute renal failure, unspecified acute renal failure type N17.9 Acute renal failure type: unspecified
[2023-08-27 07:30] LABS: Glucose Point of Care 134 mg/dL (70-110)
[2023-08-27] MEDS: sodium chloride 3.5% neb 4 mL Neb INHALATION ×2 (07:40→20:01)
[2023-08-27] MEDS: FUROsemide 10 mg/mL SDV 10mL 60 MG IVP (08:55)
[2023-08-27] MEDS: enoxaparin 120 mg/0.8 mL Syringe SUBCUT ×2 (09:04→20:41)
[2023-08-27] MEDS: dexmedeTOMIDine 0.9 % NaCL 400 MCG/100 ML PREMIX IV (09:34)
--- NOTE | 2023-08-27 10:26 | PC.NURSE ---
Poli missed morning PO meds. Lethargic and desaturates after removal form bipap. Patient placed back on bipap. WIll try po meds again later this morning. Physician notified of missing morning meds.
[2023-08-27 11:20] LABS: Glucose Point of Care 151 mg/dL (70-110)
[2023-08-27] MEDS: insulin lispro 100 unit/1 mL SUBCUT ×3 (12:23→20:44)
--- NOTE | 2023-08-27 12:51 | PC.OT ---
OT treatment attempted with pt in deep sleep and unable to be roused; will attempt at later time.
[2023-08-27] MEDS: ondansetron 2 mg/ML SDV 2 mL 4 MG IVP (13:21)
[2023-08-27] MEDS: amiodarone 200 mg Tablet 400 MG PO ×2 (13:48→20:42)
[2023-08-27] MEDS: fluoxetine 20 mg Capsule PO (13:48)
[2023-08-27] MEDS: sennosides-docusate Tablet 2 TAB PO ×2 (13:49→20:41)
[2023-08-27] MEDS: ticagrelor 90 mg Tablet PO ×2 (13:49→20:43)
[2023-08-27] MEDS: polyethylene glycol 3350 Pkt 17 gm PO ×2 (13:49→20:43)
[2023-08-27 17:19] LABS: Glucose Point of Care 198 mg/dL (70-110)
[2023-08-27] MEDS: pantoprazole 40 mg SDV IVP (18:00)
--- NOTE | 2023-08-27 18:49 | P.PN_ITS ---
Subjective 2 Subjective: Patient seen at bedside on high flow nasal cannula 50 L 40% He is awake alert and follows commands-tells me that he has mild respiratory distress Will switch to BiPAP and started him on Precedex-later in the afternoon will switch back to high flow nasal cannula Good urine output-continues to be on IV Lasix Currently awaiting placement to LTAC He is extremely deconditioned-needs aggressive physical therapy He is on full dose anticoagulation for suspected PE-unable to do CTA given his recent renal failure and currently recovering Medications: Reviewed: Yes Vitals/I&O/Wt Last Vital Signs Temp 97.8 F 08/27/23 13:00 Pulse 98 08/27/23 16:00 Resp 18 08/27/23 16:00 BP 103/63 08/27/23 14:00 Pulse Ox 93 08/27/23 16:00 O2 Del Method Heated High Flow 08/27/23 16:00 O2 Flow Rate 50 08/27/23 16:00 FiO2 40 08/27/23 16:00 08/27/23 08/27/23 08/27/23 06:59 14:59 22:59 Intake Total 50 / 1755 50 / 50 Output Total 2175 / 5485 800 / 800 400 / 1200 Balance -2125 / -3730 -800 / -800 -350 / -1150 Weight last 48 hrs Weight 265 lb 10.512 oz Weight 265 lb 10.512 oz Physical Exam 2 Narrative: General: alert, NAD HEENT: conj clear, EOMI, PERRL, mmm, Neck: supple, no meningismus Heme: no cervical LAP Respiratory: Inspection: No visible deformity of the chest wall Palpation: Trachea is mildly deviated to the right, bilateral symmetric expansion Percussion: Bilateral tympanic percussion note both anterior and posteriorly Auscultation: Bilateral clear to auscultation both anterior and posteriorly, no crackles wheezing or rhonchi Cardiovascular: rrr, nl s1s2, no mrg Abdomen: soft, nt, nd, no r/g, bs+ Extremities: pulses +, no edema, no c/c : no CVA tenderness Skin: intact, no rash MSK: no back or neck pain Neurologic: grossly intact Urinary Catheter Management: Burciaga: Cath Placed During This Visit: yes Reason for Continuing Indwelling Catheter: Accurate Measurement of Urinary Output in Critically Ill Patients Urinary Catheter Date of Insertion: 08/11/23 Urinary Catheter Time of Insertion: 12:38 Data 08/27/23 03:17 08/27/23 06:08 Other Labs: Radiology Impressions Chest CTA 08/11/23 12:49 IMPRESSION: 1. No pulmonary embolism. 2. Multifocal bilateral consolidations suspicious for multifocal pneumonia. 3. NG tube with its tip at the gastroesophageal junction, consider advancing by at least 5 centimeters. Venous Duplex 08/11/23 16:05 IMPRESSION: No evidence of deep vein thrombosis. Abdomen Ultrasound 08/13/23 08:29 IMPRESSION: 1. Hepatomegaly with fatty infiltration of the liver. 2. No gallstones are appreciated. Gallbladder wall thickening. This is likely related to abdominal ascites. Laboratory Results WBC 13.01 10^3/uL (3.29-11.43) H 08/27/23 03:17 Corrected WBC Cancelled 08/12/23 04:50 RBC 3.35 10^6/uL (3.85-5.65) L 08/27/23 03:17 Hgb 9.90 g/dL (11.27-16.99) L 08/27/23 03:17 Hct 30.9 % (37-53) L 08/27/23 03:17 MCV 92.2 fl (82-101) 08/27/23 03:17 MCH 29.6 pg (27-33) 08/27/23 03:17 MCHC 32.0 g/dL (30-55) 08/27/23 03:17 RDW 16.6 % (12.1-15.1) H 08/27/23 03:17 Plt Count 178 10^3/cmm (157-399) 08/27/23 03:17 MPV 11.1 fL (7.4-10.4) H 08/27/23 03:17 Gran % Cancelled 08/12/23 04:50 Neut % (Auto) 80.2 % 08/27/23 03:17 Lymph % (Auto) 5.5 % 08/27/23 03:17 [place] % (Auto) 7.0 % 08/27/23 03:17 Eos % (Auto) 5.9 % 08/27/23 03:17 Baso % (Auto) 0.8 % 08/27/23 03:17 Neut # (Auto) 10.42 10^3/uL (1.8-7.7) H 08/27/23 03:17 Lymph # (Auto) 0.7 10^3/uL (0.8-4.8) L 08/27/23 03:17 [place] # (Auto) 0.9 10^3/uL (0.2-0.9) 08/27/23 03:17 Eos # (Auto) 0.8 10^3/uL (0.0-0.8) 08/27/23 03:17 Baso # (Auto) 0.1 10^3/uL (0.0-0.1) 08/27/23 03:17 Absolute Gran (auto) Cancelled 08/12/23 04:50 Nucleated RBC % (auto) 0 % 08/27/23 03:17 Nucleated RBCs # 0.0 /100WBC 08/27/23 03:17 PT 16.60 SECONDS (12.1-14.9) H 08/23/23 05:03 INR 1.29 (0.8-1.2) H 08/23/23 05:03 APTT 54.0 SECONDS (23.9-36.7) H 08/18/23 01:07 Fibrinogen 286 mg/dL (174-498) 08/18/23 01:07 Fibrin Degrad Products 80 mcg/mL (LESS THAN 5) H 08/18/23 01:23 D-Dimer >= 20.00 ug/mLFEU (0-0.59) H 08/18/23 01:07 Specimen Type Arterial 08/26/23 00:28 Sample Site Radial, left 08/26/23 00:28 ABG pH 7.44 (7.35-7.45) 08/26/23 00:28 ABG pCO2 56.4 mmHg (35-45) H 08/26/23 00:28 ABG pO2 88.5 mmHg (80.0-100.0) 08/26/23 00:28 ABG PO2/FiO2 Ratio 0 08/26/23 00:28 ABG HCO3 38.0 mmol/L (22-26) H 08/26/23 00:28 ABG O2 Saturation 96.5 08/26/23 00:28 ABG Base Excess 11.8 mmol/L (-2.0-2.0) H 08/26/23 00:28 Jj Test Pos 08/26/23 00:28 A-a O2 Gradient 16.9 mmHg (5-10) H 08/26/23 00:28 Hematocrit 36.3 % (42-52) L 08/26/23 00:28 Hgb O2 Saturation 94.8 % (95-100) L 08/26/23 00:28 Carboxyhemoglobin 1.5 %THgb (0.4-20.1) 08/26/23 00:28 Methemoglobin 0.3 % (0.4-1.5) L 08/26/23 00:28 Total Hemoglobin 11.8 g/dL (14-18) L 08/26/23 00:28 Sodium 150.0 mmol/L (131-143) H 08/26/23 00:28 Potassium 3.5 mmol/L (3.5-5.0) 08/26/23 00:28 Glucose 175.0 mg/dL (70-115) H 08/26/23 00:28 Ionized Calcium 1.2 mmol/L (1.1-1.4) 08/26/23 00:28 O2 Delivery Device Bipap 08/26/23 00:28 FiO2 40.0 % 08/26/23 00:28 Tidal Volume 0.45 08/21/23 04:52 PEEP 8.0 cmH20 08/21/23 04:52 CPAP 10.0 cmH20 08/15/23 04:40 Sous Chef Kitchen Manager ID John 08/26/23 00:28 Sodium 143 mmol/L (136-145) 08/27/23 06:08 Potassium 4.5 mmol/L (3.5-5.1) 08/27/23 06:08 Chloride 99 mmol/L (98-107) 08/27/23 06:08 Carbon Dioxide 33 mmol/L (22-29) H 08/27/23 06:08 Anion Gap 15.5 (5-19) 08/27/23 06:08 BUN 45 mg/dL (6-20) H 08/27/23 06:08 Creatinine 1.2 mg/dL (0.7-1.2) 08/27/23 06:08 GFR Calculation 62.0 mL/min (90-130) L 08/27/23 06:08 Glucose 147 mg/dL (65-115) H 08/27/23 06:08 POC Glucose 198 mg/dL (70-110) H 08/27/23 17:08 Estimat Average Glucose 183 08/11/23 12:39 Hemoglobin A1c 8.0 % (4.0-6.0) H 08/11/23 12:39 Calculated Osmolality 310 mOsm/kg (285-295) H 08/27/23 06:08 Lactic Acid 1.5 mmol/L (0.5-2.2) 08/26/23 03:22 Lactic Acid (Sepsis) 2.1 mmol/L (0.5-2.2) 08/11/23 00:50 Lactate 2.0 mmol/L (0.5-2.2) 08/23/23 05:03 Calcium 9.4 mg/dL (8.5-10.5) 08/27/23 06:08 Phosphorus 2.7 mg/dL (2.5-4.5) 08/26/23 03:22 Magnesium 2.0 mg/dL (1.7-2.3) 08/26/23 03:22 Total Bilirubin 1.6 mg/dL (0.15-1.2) H 08/27/23 06:08 Direct Bilirubin 3.20 mg/dL (0.00-0.30) H 08/13/23 05:43 GGT 58 U/L (8-61) 08/13/23 05:43 AST 30 U/L (0-40) 08/27/23 06:08 ALT 8 U/L (0-41) 08/27/23 06:08 Alkaline Phosphatase 82 U/L (40-130) 08/27/23 06:08 Creatine Kinase 51 U/L (39-308) 08/23/23 05:03 Troponin T Baseline 52 ng/L (0-15) H 08/19/23 12:53 Troponin T 120 Minute 54.74 ng/L (0-15) H 08/19/23 15:41 Delta Troponin T 2.74 ABS# (0-10) 08/19/23 15:41 Troponin T Hi Sens 6Hr 47.01 ng/L (0-15) H 08/19/23 19:33 Troponin T Hi Sens 6Hr Delta -4.99 ng/L (0-12) L 08/19/23 19:33 C-Reactive Protein 61.5 mg/L (0.0-4.9) H 08/26/23 03:22 NT-Pro-B Natriuret Pep 9689 pg/mL (0-125) H 08/26/23 03:22 Total Protein 6.9 g/dL (6.6-8.7) 08/27/23 06:08 Albumin 3.3 g/dL (3.5-5.2) L 08/27/23 06:08 Globulin 3.6 g/dL (1.3-4.6) 08/27/23 06:08 Triglycerides 91 mg/dL (0-150) 08/11/23 12:39 Cholesterol 132 mg/dL (0-200) 08/11/23 12:39 LDL Cholesterol, Calc 70 mg/dL (50-129) 08/11/23 12:39 HDL Cholesterol 44 mg/dL (60-100) L 08/11/23 12:39 LDL/HDL Ratio 1.59 RATIO (0.00-3.22) 08/11/23 12:39 Cholesterol/HDL Ratio 3.00 mg/dL (1.0-5.00) 08/11/23 12:39 Amylase 161 U/L (28-100) H 08/13/23 05:43 Lipase 175 U/L (13-60) H 08/13/23 05:43 Procalcitonin 0.83 ng/mL (0-0.5) H 08/26/23 03:22 TSH 13.34 uIU/mL (0.27-4.20) H 08/25/23 09:05 Free T4 1.06 ng/dL (0.82-1.77) 08/25/23 09:05 Free T3 1.4 PG/ML (2.0-4.4) L 08/25/23 09:05 Urine Color Brown (Yellow) A 08/20/23 18:07 Urine Appearance Cloudy (CLEAR) A 08/20/23 18:07 Urine pH 5 (5-7) 08/20/23 18:07 Ur Specific [place] 1.015 (1.005-1.030) 08/20/23 18:07 Urine Protein 1+ (Negative) H 08/20/23 18:07 Urine Glucose (UA) 4+ (Normal) H 08/20/23 18:07 Urine Ketones 1+ (Negative) H 08/20/23 18:07 Urine Blood 3+ (Negative) H 08/20/23 18:07 Urine Nitrate Negative (Negative) 08/20/23 18:07 Urine Bilirubin Neg (Negative) 08/20/23 18:07 Urine Urobilinogen Norm mg/dL (Negative) 08/20/23 18:07 Ur Leukocyte Esterase Trace (Negative) H 08/20/23 18:07 Urine RBC >100 /hpf (0-2) H 08/20/23 18:07 Urine WBC 5-10 /hpf (0-5) H 08/20/23 18:07 Ur Squamous Epith Cells 0-4 /hpf (0-5) H 08/20/23 18:07 Amorphous Sediment 2+ /hpf 08/20/23 18:07 Urine Bacteria 1+ /hpf (NONE) H 08/20/23 18:07 Hyaline Casts 0-4 /lpf H 08/20/23 18:07 Fine Granular Casts 0-4 /lpf H 08/20/23 18:07 Urine Mucus 2+ /hpf 08/20/23 18:07 Nasal Influ A H1 2008 PCR Cancelled 08/11/23 05:22 Random Vancomycin 32.3 ug/mL (20.0-40.0) 08/19/23 06:35 Serum Ketones Negative (Negative) 08/11/23 12:39 Adenovirus (PCR) Not detected (NOT DETECT) 08/20/23 18:18 C. pneumoniae DNA (PCR) Not detected (NOT DETECT) 08/20/23 18:18 Coronavirus 229E (PCR) Not detected (NOT DETECT) 08/20/23 18:18 Hep Bs Antigen Non-reactive (Nonreactive) 08/12/23 17:40 Hep Bs Antibody 22.4 (11.5-1000) 08/12/23 17:40 Hep B Core Total Ab Non-reactive (Nonreactive) 08/12/23 17:40 Hepatitis C Antibody Non-reactive (Nonreactive) 08/12/23 17:40 Human Metapneumovir PCR Not detected (NOT DETECT) 08/20/23 18:18 Influenza A (H1) PCR Not detected (NOT DETECT) 08/20/23 18:18 Influ A (H1/09) PCR Not detected (NOT DETECT) 08/20/23 18:18 Influenza A (H3) PCR Not detected (NOT DETECT) 08/20/23 18:18 Influenza Type A Ag negative (Negative) 08/12/23 06:00 Influenza Type A (PCR) Not detected (NOT DETECT) 08/20/23 18:18 Influenza Type B Ag negative (Negative) 08/12/23 06:00 Influenza Type B (PCR) Not detected (NOT DETECT) 08/20/23 18:18 M. pneumoniae (PCR) Not detected (NOT DETECT) 08/20/23 18:18 Parainfluenza 1 (PCR) Not detected (NOT DETECT) 08/20/23 18:18 Parainfluenza 2 (PCR) Not detected (NOT DETECT) 08/20/23 18:18 Parainfluenza 3 (PCR) Not detected (NOT DETECT) 08/20/23 18:18 Parainfluenza 4 (PCR) Not detected (NOT DETECT) 08/20/23 18:18 RSV Type A (PCR) Not detected (NOT DETECT) 08/20/23 18:18 RSV Type B (PCR) Not detected (NOT DETECT) 08/20/23 18:18 Entero/Rhino (PCR) Not detected (NOT DETECT) 08/20/23 18:18 SARS-CoV-2 (PCR) Detected (NOT DETECT) A 08/20/23 18:18 SARS-CoV-2 Ag (Rapid) positive (Negative) H 08/12/23 06:00 Micro: Microbiology 08/20/23 19:27 Blood Culture - Final Blood 08/20/23 19:22 Blood Culture - Final Blood A&P Assessment and plan (1) CHF (congestive heart failure): (2) Ischemic cardiomyopathy: (3) Systolic CHF, acute: (4) Implantable cardioverter-defibrillator (ICD) in situ: (5) Diabetes: (6) 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 2 diabetes mellitus: (7) Acute renal failure: Qualifiers: Acute renal failure type: unspecified Qualified Code(s): N17.9 - Acute kidney failure, unspecified (8) COPD (chronic obstructive pulmonary disease): (9) Acute respiratory failure: Qualifiers: Respiratory failure complication: hypoxia Qualified Code(s): J96.01 - Acute respiratory failure with hypoxia (10) Staphylococcus aureus pneumonia: (11) Multifocal pneumonia: (12) Pneumonia due to COVID-19 virus: Plan # Admitted for multifocal pneumonia-sputum cultures positive for Staph aureus # Later blood cultures grew gram-positive bacteremia staphylolysin since- currently on cefazolin # COVID PCR positive-acute hypoxic respiratory failure #? Ischemic encephalopathy given cardiac arrest #? Uremic encephalopathy-mentation improved -Successfully extubated-however still requiring FiO2 40% on high flow nasal cannula-chest x-ray shows significant congestion -Recommended to continue IV diuresis and BiPAP -Completed remdesivir and Decadron, Zyvox, meropenem. Currently on cefazolin for staph liquid into his bacteremia -CT head did not show any acute changes # Recent worsening in respiratory status -Chest x-ray showed congestion -Continue IV diuresis -Recommended BiPAP -Started on Precedex for anxiety # CAPRI on CKD in patient with underlying diabetes-of dialysis -Currently on IV diuretics -Renal functions and urine output acceptable -Renal on board -Will monitor urine output/electrolytes # Underlying ischemic heart disease and an implantable ICD # A-fib RVR -On p.o. amiodarone, aspirin/Lipitor/Brilinta -Eliquis-switch to full dose Lovenox-given sudden desaturation requiring high flow nasal cannula titrate suspected PE. Not a good candidate for CTA given recent renal decompensation. After adequate diuresis if FiO2 requirements come down we can switch to oral Eliquis # Diabetes mellitus -Uncontrolled sugars-he is on scale coverage-started on insulin Lantus -Monitor sugars closely ICU CHECKLIST: Problem list updated Verbal orders reviewed and signed Code Status: Limited resuscitation Disposition: ICU Critically ill: Yes MD discussed with: Hospitalist, RN, RT Analgesia: N/A Glycemic Control: Insulin Nutrition: Fluid with assistance Restraint Renewal (within 24 hrs): N/A Ulcer Prophylaxis: PPI Chemical Thromboprophylaxis: Prophylaxis: Lovenox Mechanical Thromboprophylaxis: SCD Need for Central line: N/A Need for Burciaga catheter: Urine output monitoring Attestations 2 Medical Necessity Statement*: Currently awaiting placement to LTAC Needs aggressive physical therapy for deconditioning and still requiring 30% FiO2 on high flow nasal cannula Time Spent in Patient Care: Greater than 35 minutes (>than 50% of time spent in counselling and/or direct pt care on unit) . Critical Care Time: This patient has a high probability of clinically significant, sudden or life threatening deterioration of the patient's (pulmonary, cardiac, renal, neurological) systems required my full, direct attention, the highest level of physician preparedness for urgent intervention and personal management. I managed/supervised life or organ supporting interventions that required frequent physician assessment. I devoted my full attention in the ICU to the direct care of this patient for the period of time indicated above. Time I spent with family or surrogate(s) is included only if the patient was incapable of providing necessary information or participating in decision making. This time includes the following services provided: Telemetry review Mechanical Ventilation Hemodynamic interpretation, assessment and management Review and interpretation of CXR Review and interpretation of lab values Review and interpretation of microbiologic data and culture results Review of medications and administration Review and interpretation of Nutrition requirements and management Discussion of management with other consultants and services Clinical update to family members [x] Data and vital sign review and interpretation [x] Patient assessment, examination and intervention [x] Documentation [x] Medication orders and management Critical Care Time (min): 47 Coding Level of Care Code Acute Code for [facility] Fwd Diagnoses Acute on chronic systolic congestive heart failure I50.9 Ischemic cardiomyopathy I25.5 Systolic CHF, acute I50.21 Implantable cardioverter-defibrillator (ICD) in situ Z95.810 Diabetes E11.9 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 2 diabetes mellitus E11.22; N18.2 Acute renal failure, unspecified acute renal failure type N17.9 Acute renal failure type: unspecified COPD (chronic obstructive pulmonary disease) J44.9 Acute respiratory failure J96.01 Respiratory failure complication: hypoxia Staphylococcus aureus pneumonia J15.211 Multifocal pneumonia J18.9 Pneumonia due to COVID-19 virus U07.1; J12.82 Time Spent (min) 47
--- NOTE | 2023-08-27 19:16 | PC.NURSE ---
SHift SUmmary: Uneventful shift. INitially, patient was uncooperative, refusing to speak with nurse, and increased anxiety required bipap and precedex. Patient was able to come off of bipap around 130pm, precedex stayed on and patient was much more cooperative. SPent about 6 hours up in a chair on a hi flow nasal cannula. WHen he does speak to you, he is alert to person, place, and time. Refused to answer situation questions. 1000mL of urine output.
[2023-08-27 20:33] LABS: Glucose Point of Care 180 mg/dL (70-110)
--- NOTE | 2023-08-27 21:39 | P.PN_ITS ---
Subjective 2 Subjective: Resting. BiPAP on. Wakes up to voice. Nods answers to questions. Follows directions. Agreeable that he would like to pursue rehabilitation, and agreeable with doing so at LTAC. Transition to heated high flow but later requesting again to restart BiPAP. Vitals/I&O/Wt Last Vital Signs Temp 98.8 F 08/27/23 18:00 Pulse 89 08/27/23 20:04 Resp 20 H 08/27/23 20:04 BP 103/67 08/27/23 20:00 Pulse Ox 93 08/27/23 20:04 O2 Del Method Heated High Flow 08/27/23 20:04 O2 Flow Rate 50 08/27/23 20:04 FiO2 40 08/27/23 20:04 08/27/23 08/27/23 08/27/23 06:59 14:59 22:59 Intake Total 50 / 1755 50 / 50 Output Total 2175 / 5485 800 / 800 400 / 1200 Balance -2125 / -3730 -800 / -800 -350 / -1150 Weight last 48 hrs Weight 120.5 kg Weight 120.5 kg Physical Exam 2 Const: GENERAL APPEARANCE: cooperative NUTRITIONAL APPEARANCE: obese O RIENTATION/CONSCIOUSNESS: Yes awake OTHER: Weak HENMT: COMMON NORMALS: oropharynx normal Neck/C-Spine: COMMON NORMALS: no JVD Resp: COMMON NORMALS: normal respiratory effort AUSCULTATION: diminished lung sounds OTHER: Weak cough. Cardio: COMMON NORMALS: no JVD, regular rhythm, S1 normal heart sound present, S2 normal heart sound present and No murmurs present (Cardio) RHYTHM: regular rhythm HEART SOUNDS: S1 normal heart sound present and S2 normal heart sound present GI: COMMON NORMALS: Normal to inspection, nondistended, normoactive bowel sounds present, Soft to palpation and non-tender PALPATION: Yes Soft to palpation Extremity: COMMON NORMALS: no joint enlargement GENERAL: Yes edema (1+) Urinary Catheter Management: Burciaga: Cath Placed During This Visit: yes Reason for Continuing Indwelling Catheter: Accurate Measurement of Urinary Output in Critically Ill Patients Urinary Catheter Date of Insertion: 08/11/23 Urinary Catheter Time of Insertion: 12:38 Data 08/27/23 03:17 08/27/23 06:08 Micro: Microbiology 08/20/23 19:27 Blood Culture - Final Blood 08/20/23 19:22 Blood Culture - Final Blood A&P Assessment and plan (1) Gram-positive bacteremia: (2) Multiorgan failure: (3) COVID-19: (4) Staphylococcus aureus pneumonia: (5) Acute encephalopathy: (6) Pneumonia due to COVID-19 virus: (7) Multifocal pneumonia: (8) Acute renal failure: Qualifiers: Acute renal failure type: unspecified Qualified Code(s): N17.9 - Acute kidney failure, unspecified (9) Septic shock: (10) Acute hypoxic respiratory failure: (11) V-tach: (12) Shock: (13) NSTEMI (non-ST elevated myocardial infarction): (14) CAPRI (acute kidney injury): (15) 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 2 diabetes mellitus: (16) Morbid obesity: (17) CAD (coronary artery disease): (18) ICD (implantable cardioverter-defibrillator) in place: (19) Sustained ventricular tachycardia: (20) CHF (congestive heart failure): (21) Ischemic cardiomyopathy: (22) Systolic CHF, acute: (23) COPD (chronic obstructive pulmonary disease): (24) Obstructive sleep apnea: (25) Tobacco abuse: (26) Metabolic acidosis: (27) Lactic acidosis: (28) Hyperkalemia: (29) Hyponatremia: (30) Goals of care, counseling/discussion: (31) Rhabdomyolysis: (32) Shock liver: (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 Reassessed by contract loader, discussed. Continue antibiotic coverage, continue pulmonary toilet, chest vest, hypertonic saline nebs. Mobilize as tolerating. As per discussion with patient he would benefit from extensive rehabilitation. Discussed consideration of myopathy, suspicion for ICU myopathy. In case statin contributing with statin myopathy, discontinued. Held additional infusions for now with congestive changes. Requested speech therapy assessment. Discussed with speech therapist. Aspiration precautions. Continue current diet for now due to risk of aspiration/fatigue. Can liberalize liquids to thin. Add protein shakes for nutrition. Precedex for now was resumed for anxiety Discussed with case briefer. Continue arrangements for LTAC. Reviewed vitals, CBC, BMP, procalcitonin. Blood culture. Catheter tip culture, noted negative. Acute encephalopathy, -Previously reported with improvement. -has cognitive slowing ? Likely component of hyponatremia, uremia, sepsis -concerns for anoxic brain injury, ?continue neurochecks, ? Monitor mentation closely, ? CT of the head IMPRESSION: 1. No evidence of intracranial hemorrhage or mass effect. 2. Mild small vessel changes with mild parenchymal volume loss. 3. Diffuse paranasal sinusitis with air-fluid levels. 4. No acute intracranial findings. -neurology consulted Ventricular tachycardia ? Status post cardioversion -Cardiology consulted A-fib with RVR -Seen on telemetry -On po amiodarone - Previously Eliquis, currently Lovenox. Monitor for risk of bleeding with recent kidney dysfunction. Reassess kidney function. Hyperglycemia with concern for HHS, increased anion gap 24.7,resolved ? subcut insulin ? Monitor blood sugars ? Monitor anion gap, ? Monitor potassium Shock liver, resolving. Reviewed liver parameters. ? Likely sec to septic shock ?continue to monitor closely NSTEMI -According to family, coronary angiography done at the [facility], was within normal limits, stents no significant obstruction, no intervention required he also had a pacemaker check about a month ago which was within normal limits -Serial EKGs, starting troponins, telemetry monitoring, ? Aspirin, statin, Brilinta ?cardiac echo reviewed ? Completed course of Lovenox Gram-positive bacteremia, staph lundgensus ? cefazolin -Repeat blood cultures negative so far COVID-19 pneumonia, ? completed remdesivir, ? completed steroids D-dimer elevated: Marked elevation of D-dimer presentation. Difficult to tell if entirely explained by COVID-19. Previous angiogram chest without PE. Worsening respiratory distress, respiratory failure today. Switched from Eliquis to therapeutic Lovenox. Currently not a good candidate for such angiogram due to recent renal dysfunction. Could not cooperate with VQ scan. Empiric anticoagulation for now until can be better assessed. Multifocal bacterial pneumonia, Staph aureus positive sputum cultures ? As above Septic shock, resolved Acute renal failure: Reviewed renal parameters, with gradual improvement. Discussed with surgical appliances salesperson. Producing urine. Metabolic acidosis resolved ? Likely secondary to sepsis, septic shock, acute renal failure, next Lactic acidosis resolved ? Likely sec to sepsis, Hyperkalemia, resolved Type 2 diabetes mellitus, blood sugars remain uncontrolled, low-dose Lantus, COPD, no active wheezing, DO NOT INTUBATE, okay with CPR, drugs per ACLS ? Protonix for GI prophylaxis, ? Prognosis guarded Attestations 2 Medical Necessity Statement*: Continue admission for respiratory failure. Diagnoses Gram-positive bacteremia R78.81 Multiorgan failure COVID-19 U07.1 Staphylococcus aureus pneumonia J15.211 Acute encephalopathy G93.40 Pneumonia due to COVID-19 virus U07.1; J12.82 Multifocal pneumonia J18.9 Acute renal failure, unspecified acute renal failure type N17.9 Acute renal failure type: unspecified Septic shock A41.9; R65.21 Acute hypoxic respiratory failure J96.01 V-tach I47.20 Shock R57.9 NSTEMI (non-ST elevated myocardial infarction) I21.4 CAPRI (acute kidney injury) N17.9 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 2 diabetes mellitus E11.22; N18.2 Morbid obesity E66.01 Coronary artery disease involving [place] coronary artery of [place] heart without angina pectoris I25.10 ICD (implantable cardioverter-defibrillator) in place Z95.810 Sustained ventricular tachycardia I47.20 Acute on chronic systolic congestive heart failure I50.9 Ischemic cardiomyopathy I25.5 Systolic CHF, acute I50.21 COPD (chronic obstructive pulmonary disease) J44.9 Obstructive sleep apnea G47.33 Tobacco abuse Z72.0 Metabolic acidosis E87.20 Lactic acidosis E87.20 Hyperkalemia E87.5 Hyponatremia E87.1 Goals of care, counseling/discussion Z71.89 Rhabdomyolysis M62.82 Shock liver K72.00 HHS (hypothenar hammer syndrome) I73.89 Uremia N19
[2023-08-28] VITALS (34 sets, daily range): BP systolic 68–121; BP diastolic 38–87; PULSE 72–98; RESP 15–32; TEMP 36.6–36.9; O2SAT 88–97
[2023-08-28] MEDS: dexmedeTOMIDine 0.9 % NaCL 400 MCG/100 ML PREMIX 5.74 MCG IV (03:12)
[2023-08-28 03:18] LABS: Basophils # 0.1 10^3/uL (0.0-0.1); Basophils % 1.1 %; Eosinophils # 1.2 10^3/uL (0.0-0.8); Eosinophils % 9.6 %; Hematocrit 28.2 % (37-53); Lymphocytes # 0.7 10^3/uL (0.8-4.8); Lymphocytes % 5.4 %; Mean Corpuscular HGB Conc 31.2 g/dL (30-55); Mean Corpuscular Hemoglobin 29.1 pg (27-33); Mean Corpuscular Volume 93.4 fl (82-101); Mean Platelet Volume 10.6 fL (7.4-10.4); Monocytes # 0.8 10^3/uL (0.2-0.9); Monocytes % 6.5 %; Neutrophils # 9.18 10^3/uL (1.8-7.7); Neutrophils % 76.8 %; Nucleated Red Blood Cells % 0.2 %; Platelet Count 143 10^3/cmm (157-399); Red Blood Count 3.02 10^6/uL (3.85-5.65); Red Cell Distribution Width 16.4 % (12.1-15.1); White Blood Count 11.96 10^3/uL (3.29-11.43)
[2023-08-28 03:40] LABS: Alanine Aminotransferase 6 U/L (0-41); Albumin Level 3.4 g/dL (3.5-5.2); Alkaline Phosphatase 86 U/L (40-130); Blood Urea Nitrogen 56 mg/dL (6-20); Calcium 9.2 mg/dL (8.5-10.5); Carbon Dioxide 36 mmol/L (22-29); Chloride 95 mmol/L (98-107); Globulin 3.4 g/dL (1.3-4.6); Glomerular Filtration Rate 56.5 mL/min (90-130); Glucose 120 mg/dL (65-115); Osmolality Calculated 309 mOsm/kg (285-295); Sodium 141 mmol/L (136-145); Total Bilirubin 1.4 mg/dL (0.15-1.2); Total Protein 6.8 g/dL (6.6-8.7)
[2023-08-28 03:42] LABS: Anion Gap 14.2 (5-19); Aspartate Amino Transferase 31 U/L (0-40); Potassium 4.2 mmol/L (3.5-5.1)
[2023-08-28] MEDS: ceFAZolin 2,000 MG in sodium chloride 0.9% (plus) 50 ML 100 MG IV ×3 (03:54→20:48)
[2023-08-28] MEDS: ipratropium-albuterol 3 mL Neb INHALATION ×5 (04:16→20:00)
[2023-08-28] MEDS: levothyroxine 125 mcg Tablet 62.5 MCG PO (05:50)
[2023-08-28] MEDS: aspirin 81 mg EC Tablet PO (05:50)
[2023-08-28] MEDS: sodium chloride 3.5% neb 4 mL Neb INHALATION ×2 (07:53→20:00)
[2023-08-28 08:20] LABS: Glucose Point of Care 123 mg/dL (70-110)
[2023-08-28] MEDS: enoxaparin 120 mg/0.8 mL Syringe SUBCUT ×2 (08:57→20:49)
[2023-08-28] MEDS: sennosides-docusate Tablet 2 TAB PO (08:57)
[2023-08-28] MEDS: amiodarone 200 mg Tablet 400 MG PO ×2 (08:57→17:43)
[2023-08-28] MEDS: fluoxetine 20 mg Capsule PO (08:57)
[2023-08-28] MEDS: polyethylene glycol 3350 Pkt 17 gm PO ×2 (08:58→17:44)
[2023-08-28] MEDS: ticagrelor 90 mg Tablet PO ×2 (08:59→17:44)
--- NOTE | 2023-08-28 09:34 | P.PN_ITS ---
Subjective 2 Subjective: evets noted Medications: Reviewed: Yes Vitals/I&O/Wt Last Vital Signs Temp 98.4 F 08/28/23 00:00 Pulse 77 08/28/23 07:59 Resp 22 H 08/28/23 07:57 BP 85/53 08/28/23 06:00 Pulse Ox 96 08/28/23 07:57 O2 Del Method Heated High Flow 08/28/23 07:56 O2 Flow Rate 40 08/28/23 07:57 FiO2 50 08/28/23 07:57 08/27/23 08/28/23 08/28/23 22:59 06:59 14:59 Intake Total 635.684 / 635.684 79.848 / 715.532 Output Total 400 / 1200 700 / 1900 Balance 235.684 / -564.316 -620.152 / -1184.468 Weight last 48 hrs Weight 120.202 kg Weight 120.5 kg Physical Exam 2 Narrative: on bipap Urinary Catheter Management: Burciaga: Cath Placed During This Visit: yes Reason for Continuing Indwelling Catheter: Accurate Measurement of Urinary Output in Critically Ill Patients Urinary Catheter Date of Insertion: 08/11/23 Urinary Catheter Time of Insertion: 12:38 Data 08/28/23 03:08 08/28/23 03:08 Micro: Microbiology 08/20/23 19:27 Blood Culture - Final Blood 08/20/23 19:22 Blood Culture - Final Blood A&P Assessment and plan (1) Acute renal failure: Qualifiers: Acute renal failure type: unspecified Qualified Code(s): N17.9 - Acute kidney failure, unspecified Plan 1. Acute kidney injury, in the setting of shock, cardiac arrest. Baseline creatinine was normal in November 2022. 2. septic shock, COVID, multifocal pneumonia,- Extubated 3. Hyponatremia, improved 4. Metabolic alkalosis 5. Hyperphosphatemia: improved 6. History of COPD, coronary artery disease, obesity 7. encephalopathy Plan: , Cr 1.3 , UOP resonable, PRN lasix Attestations 2 Medical Necessity Statement*: per [facility] Coding Level of Care Code Acute Code for Chg Fwd Diagnoses Acute renal failure, unspecified acute renal failure type N17.9 Acute renal failure type: unspecified
[2023-08-28] MEDS: acetaminophen 325 mg Tablet 650 MG PO (09:55)
--- NOTE | 2023-08-28 10:10 | PC.NURSE ---
patient not wanting to cooperate with activity/self care and nursing care. education given on moving and activity irving to getting out of hospital
[2023-08-28 11:04] LABS: Glucose Point of Care 176 mg/dL (70-110)
[2023-08-28] MEDS: insulin lispro 100 unit/1 mL SUBCUT ×3 (12:08→20:50)
[2023-08-28] MEDS: albumin 25 G/100 ML BAG 60 G IV (12:09)
--- NOTE | 2023-08-28 13:59 | P.PN_ITS ---
Subjective 2 Subjective: He is feeling slightly stronger today. Feels thirsty. Having dry mouth. He did eat a little bit. Vitals/I&O/Wt Last Vital Signs Temp 98.4 F 08/28/23 00:00 Pulse 76 08/28/23 11:30 Resp 15 08/28/23 11:30 BP 97/61 08/28/23 10:00 Pulse Ox 96 08/28/23 11:30 O2 Del Method Heated High Flow 08/28/23 11:30 O2 Flow Rate 50 08/28/23 11:27 FiO2 40 08/28/23 11:30 08/27/23 08/28/23 08/28/23 22:59 06:59 14:59 Intake Total 635.684 / 635.684 79.848 / 715.532 Output Total 400 / 1200 700 / 1900 Balance 235.684 / -564.316 -620.152 / -1184.468 Weight last 48 hrs Weight 120.202 kg Weight 120.5 kg Physical Exam 2 Const: GENERAL APPEARANCE: cooperative NUTRITIONAL APPEARANCE: obese O RIENTATION/CONSCIOUSNESS: Yes awake OTHER: Weak, slightly more alert and interactive. Slightly stronger cough. HENMT: COMMON NORMALS: oropharynx normal Neck/C-Spine: COMMON NORMALS: no JVD Resp: COMMON NORMALS: normal respiratory effort AUSCULTATION: diminished lung sounds OTHER: Weak cough. Cardio: COMMON NORMALS: no JVD, regular rhythm, S1 normal heart sound present, S2 normal heart sound present and No murmurs present (Cardio) RHYTHM: regular rhythm HEART SOUNDS: S1 normal heart sound present and S2 normal heart sound present GI: COMMON NORMALS: Normal to inspection, nondistended, normoactive bowel sounds present, Soft to palpation and non-tender PALPATION: Yes Soft to palpation Extremity: COMMON NORMALS: no joint enlargement GENERAL: Yes edema (1+) Urinary Catheter Management: Burciaga: Cath Placed During This Visit: yes Reason for Continuing Indwelling Catheter: Accurate Measurement of Urinary Output in Critically Ill Patients Urinary Catheter Date of Insertion: 08/11/23 Urinary Catheter Time of Insertion: 12:38 Data 08/28/23 03:08 08/28/23 03:08 Micro: Microbiology 08/20/23 19:27 Blood Culture - Final Blood 08/20/23 19:22 Blood Culture - Final Blood A&P Assessment and plan (1) Gram-positive bacteremia: (2) Multiorgan failure: (3) COVID-19: (4) Staphylococcus aureus pneumonia: (5) Acute encephalopathy: (6) Pneumonia due to COVID-19 virus: (7) Multifocal pneumonia: (8) Acute renal failure: Qualifiers: Acute renal failure type: unspecified Qualified Code(s): N17.9 - Acute kidney failure, unspecified (9) Septic shock: (10) Acute hypoxic respiratory failure: (11) V-tach: (12) Shock: (13) NSTEMI (non-ST elevated myocardial infarction): (14) CAPRI (acute kidney injury): (15) 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 2 diabetes mellitus: (16) Morbid obesity: (17) CAD (coronary artery disease): (18) ICD (implantable cardioverter-defibrillator) in place: (19) Sustained ventricular tachycardia: (20) CHF (congestive heart failure): (21) Ischemic cardiomyopathy: (22) Systolic CHF, acute: (23) COPD (chronic obstructive pulmonary disease): (24) Obstructive sleep apnea: (25) Tobacco abuse: (26) Metabolic acidosis: (27) Lactic acidosis: (28) Hyperkalemia: (29) Hyponatremia: (30) Goals of care, counseling/discussion: (31) Rhabdomyolysis: (32) Shock liver: (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 Slightly stronger cough. Continue pulmonary toilet. Continue antibiotic coverage with cefazolin. Heated high flow cannula. Mobilize as tolerating. Discussed with casey saw operator, continuing with arrangements for LTAC. ICU myopathy, possible statin myopathy, continue to withhold statin. Appreciate speech therapy assessment. Discussed with speech therapist. Aspiration precautions. Continue current diet for now due to risk of aspiration/fatigue. Can liberalize liquids to thin. Add protein shakes for nutrition. Precedex for now was resumed for anxiety Discussed with casey saw operator. Continue arrangements for LTAC. Reviewed vitals, CBC, BMP. Reviewed blood culture, catheter tip culture. No growth so far. Shock: Hypotension returned today. He is feeling dry, dry mouth, feeling thirsty. Given hemoglobin expansion with albumin as he does have narrow therapeutic window due to cardiomyopathy, low ejection fraction in the 30s. Propensity for fluid overload, recently congestive changes, worsening respiratory failure. Oral intake, slightly better than before, but overall not good oral intake. Will resume lower rate TPN. Resume Levophed for now due to worsening hypotension/shock. Some worsening kidney injury, creatinine up to 1.3. Reassess. Acute encephalopathy, -Previously reported with improvement. -has cognitive slowing ? Likely component of hyponatremia, uremia, sepsis -concerns for anoxic brain injury, ?continue neurochecks, ? Monitor mentation closely, ? CT of the head IMPRESSION: 1. No evidence of intracranial hemorrhage or mass effect. 2. Mild small vessel changes with mild parenchymal volume loss. 3. Diffuse paranasal sinusitis with air-fluid levels. 4. No acute intracranial findings. -neurology consulted Ventricular tachycardia ? Status post cardioversion -Cardiology consulted A-fib with RVR -Seen on telemetry -On po amiodarone - Previously Eliquis, currently Lovenox. Monitor for risk of bleeding with recent kidney dysfunction. Reassess kidney function. Hyperglycemia with concern for HHS, increased anion gap 24.7,resolved ? subcut insulin ? Monitor blood sugars ? Monitor anion gap, ? Monitor potassium Shock liver, resolving. Reviewed liver parameters. ? Likely sec to septic shock ?continue to monitor closely NSTEMI -According to family, coronary angiography done at the [facility], was within normal limits, stents no significant obstruction, no intervention required he also had a pacemaker check about a month ago which was within normal limits -Serial EKGs, starting troponins, telemetry monitoring, ? Aspirin, statin, Brilinta ?cardiac echo reviewed ? Completed course of Lovenox Gram-positive bacteremia, staph lundgensus ? cefazolin -Repeat blood cultures negative so far COVID-19 pneumonia, ? completed remdesivir, ? completed steroids D-dimer elevated: Marked elevation of D-dimer presentation. Difficult to tell if entirely explained by COVID-19. Previous angiogram chest without PE. Worsening respiratory distress, respiratory failure today. Switched from Eliquis to therapeutic Lovenox. Currently not a good candidate for such angiogram due to recent renal dysfunction. Could not cooperate with VQ scan. Empiric anticoagulation for now until can be better assessed. Multifocal bacterial pneumonia, Staph aureus positive sputum cultures ? As above Septic shock, resolved Acute renal failure: Reviewed renal parameters, with gradual improvement. Discussed with calibration tester. Producing urine. Metabolic acidosis resolved ? Likely secondary to sepsis, septic shock, acute renal failure, next Lactic acidosis resolved ? Likely sec to sepsis, Hyperkalemia, resolved Type 2 diabetes mellitus, blood sugars remain uncontrolled, low-dose Lantus, COPD, no active wheezing, DO NOT INTUBATE, okay with CPR, drugs per ACLS ? Protonix for GI prophylaxis, ? Prognosis guarded Attestations 2 Medical Necessity Statement*: Continue admission for respiratory failure. Coding Level of Care Code Critical Care >/= 30 minutes Critical care time (in minutes): 35 The high probability of a clinically significant, sudden or life threatening deterioration, as referenced in this documentation, required my full and direct attention, intervention and personal management. The critical care time shown is in addition to time spent performing any reported separately billable procedures and includes the following: [x] Data and vital sign review and interpretation [x ] Patient assessment, examination and intervention [x] Medication orders and management [x] Patient/Family updates as able [x] Care Coordination and Documentation. Diagnoses Gram-positive bacteremia R78.81 Multiorgan failure COVID-19 U07.1 Staphylococcus aureus pneumonia J15.211 Acute encephalopathy G93.40 Pneumonia due to COVID-19 virus U07.1; J12.82 Multifocal pneumonia J18.9 Acute renal failure, unspecified acute renal failure type N17.9 Acute renal failure type: unspecified Septic shock A41.9; R65.21 Acute hypoxic respiratory failure J96.01 V-tach I47.20 Shock R57.9 NSTEMI (non-ST elevated myocardial infarction) I21.4 CAPRI (acute kidney injury) N17.9 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 2 diabetes mellitus E11.22; N18.2 Morbid obesity E66.01 Coronary artery disease involving [place] coronary artery of [place] heart without angina pectoris I25.10 ICD (implantable cardioverter-defibrillator) in place Z95.810 Sustained ventricular tachycardia I47.20 Acute on chronic systolic congestive heart failure I50.9 Ischemic cardiomyopathy I25.5 Systolic CHF, acute I50.21 COPD (chronic obstructive pulmonary disease) J44.9 Obstructive sleep apnea G47.33 Tobacco abuse Z72.0 Metabolic acidosis E87.20 Lactic acidosis E87.20 Hyperkalemia E87.5 Hyponatremia E87.1 Goals of care, counseling/discussion Z71.89 Rhabdomyolysis M62.82 Shock liver K72.00 HHS (hypothenar hammer syndrome) I73.89 Uremia N19
[2023-08-28] MEDS: norepinephrine 4 MG/250 ML BAG 7.5 MG IV (14:36)
[2023-08-28] MEDS: pantoprazole 40 mg SDV IVP (16:02)
[2023-08-28 17:19] LABS: Glucose Point of Care 156 mg/dL (70-110)
[2023-08-28] MEDS: AA-Dex 5%-20% w/Lytes 1,000 ML 40 ML IV (19:14)
[2023-08-28 20:10] LABS: Glucose Point of Care 175 mg/dL (70-110)
[2023-08-29] VITALS (22 sets, daily range): BP systolic 90–134; BP diastolic 62–86; PULSE 67–79; RESP 21–27; TEMP 36.4–37.2; O2SAT 92–98
[2023-08-29] MEDS: norepinephrine 4 MG/250 ML BAG 30 MG IV (00:03)
[2023-08-29] MEDS: ipratropium-albuterol 3 mL Neb INHALATION ×3 (00:12→12:10)
[2023-08-29] MEDS: acetaminophen 325 mg Tablet 650 MG PO (03:33)
--- NOTE | 2023-08-29 03:55 | PC.NURSE ---
Patient rested very little throughout shift. Patient frequents call light, precedex restarted as patient appears to be anxious frequently requesting staff sometimes within a minute of leaving the room. Patient requests to be put on bedpan and have it removed before nurse can remove gloves and clean hands. Patient instructed that cooperating with PT will help with bowel movements and that it is important to get out of the bed. Patient was able to have one small soft bowel movement as well as one copious soft bowel movement. Patient refuses to reach for drink or attempt to adjust self. Bedside table placed within reach of patient. Patient unwilling to lift arms to place pillows.
[2023-08-29] MEDS: ceFAZolin 2,000 MG in sodium chloride 0.9% (plus) 50 ML 100 MG IV ×2 (04:06→11:43)
[2023-08-29] MEDS: dexmedeTOMIDine 0.9 % NaCL 400 MCG/100 ML PREMIX 5.74 MCG IV (04:06)
[2023-08-29 04:52] LABS: Basophils # 0.1 10^3/uL (0.0-0.1); Eosinophils # 1.1 10^3/uL (0.0-0.8); Eosinophils % 9.2 %; Hematocrit 28.8 % (37-53); Lymphocytes # 0.8 10^3/uL (0.8-4.8); Lymphocytes % 6.6 %; Mean Corpuscular HGB Conc 31.3 g/dL (30-55); Mean Corpuscular Volume 92.9 fl (82-101); Mean Platelet Volume 11.7 fL (7.4-10.4); Monocytes # 0.7 10^3/uL (0.2-0.9); Monocytes % 5.7 %; Neutrophils # 8.83 10^3/uL (1.8-7.7); Nucleated Red Blood Cells # 0.1 /100WBC; Nucleated Red Blood Cells % 0.9 %; Platelet Count 165 10^3/cmm (157-399); Red Cell Distribution Width 16.9 % (12.1-15.1); White Blood Count 11.62 10^3/uL (3.29-11.43)
[2023-08-29 05:14] LABS: Alanine Aminotransferase < 5 U/L (0-41); Albumin Level 3.5 g/dL (3.5-5.2); Alkaline Phosphatase 96 U/L (40-130); Blood Urea Nitrogen 57 mg/dL (6-20); Carbon Dioxide 32 mmol/L (22-29); Chloride 91 mmol/L (98-107); Globulin 3.4 g/dL (1.3-4.6); Glomerular Filtration Rate 56.5 mL/min (90-130); Glucose 193 mg/dL (65-115); Osmolality Calculated 299 mOsm/kg (285-295); Sodium 134 mmol/L (136-145); Total Bilirubin 1.4 mg/dL (0.15-1.2); Total Protein 6.9 g/dL (6.6-8.7)
[2023-08-29 05:20] LABS: Anion Gap 15.4 (5-19); Aspartate Amino Transferase 36 U/L (0-40); Potassium 4.4 mmol/L (3.5-5.1)
[2023-08-29] MEDS: aspirin 81 mg EC Tablet PO (06:14)
[2023-08-29] MEDS: levothyroxine 125 mcg Tablet 62.5 MCG PO (06:14)
[2023-08-29 07:51] LABS: Glucose Point of Care 215 mg/dL (70-110)
[2023-08-29] MEDS: sodium chloride 3.5% neb 4 mL Neb INHALATION (07:53)
[2023-08-29] MEDS: insulin lispro 100 unit/1 mL SUBCUT ×2 (08:04→11:42)
[2023-08-29] MEDS: fluoxetine 20 mg Capsule PO (08:05)
[2023-08-29] MEDS: polyethylene glycol 3350 Pkt 17 gm PO (08:05)
[2023-08-29] MEDS: amiodarone 200 mg Tablet 400 MG PO (08:05)
[2023-08-29] MEDS: enoxaparin 120 mg/0.8 mL Syringe SUBCUT (08:05)
[2023-08-29] MEDS: ticagrelor 90 mg Tablet PO (08:06)
[2023-08-29] MEDS: sennosides-docusate Tablet 2 TAB PO (08:06)
--- NOTE | 2023-08-29 08:28 | PC.NURSE ---
patient refusing to get out of bed to chair, unable to tolerate sitting on side of bed. agreeable to turning at this time
--- NOTE | 2023-08-29 09:21 | P.PN_ITS ---
Subjective 2 Subjective: events noted Medications: Reviewed: Yes Vitals/I&O/Wt Last Vital Signs Temp 97.6 F 08/29/23 02:56 Pulse 72 08/29/23 08:48 Resp 22 H 08/29/23 08:30 BP 106/74 08/29/23 08:00 Pulse Ox 93 08/29/23 08:30 O2 Del Method Heated High Flow 08/29/23 08:30 O2 Flow Rate 50 08/29/23 08:30 FiO2 35 08/29/23 08:30 08/28/23 08/29/23 08/29/23 22:59 06:59 14:59 Intake Total 574.587 / 624.587 280.747 / 905.334 150 / 150 Output Total 350 / 350 1000 / 1350 Balance 224.587 / 274.587 -719.253 / -444.666 150 / 150 Weight last 48 hrs Weight 121.563 kg Weight 120.202 kg Physical Exam 2 Narrative: on bipap Urinary Catheter Management: Burciaga: Cath Placed During This Visit: yes Reason for Continuing Indwelling Catheter: Accurate Measurement of Urinary Output in Critically Ill Patients Urinary Catheter Date of Insertion: 08/11/23 Urinary Catheter Time of Insertion: 12:38 Data 08/29/23 04:12 08/29/23 04:12 A&P Assessment and plan (1) Acute renal failure: Qualifiers: Acute renal failure type: unspecified Qualified Code(s): N17.9 - Acute kidney failure, unspecified Plan 1. Acute kidney injury, in the setting of shock, cardiac arrest. Baseline creatinine was normal in November 2022. 2. septic shock, COVID, multifocal pneumonia,- Extubated 3. Hyponatremia, improved 4. Metabolic alkalosis 5. Hyperphosphatemia: improved 6. History of COPD, coronary artery disease, obesity 7. encephalopathy Plan: , Cr 1.3 , UOP resonable, PRN lasix Attestations 2 Medical Necessity Statement*: per [facility] Coding Level of Care Code Acute Code for Chg Fwd Diagnoses Acute renal failure, unspecified acute renal failure type N17.9 Acute renal failure type: unspecified
[2023-08-29] MEDS: midodrine 5 mg TABLET PO (09:32)
[2023-08-29 11:14] LABS: Glucose Point of Care 208 mg/dL (70-110)
--- NOTE | 2023-08-29 11:22 | PC.NURSE ---
patient not wanting to cooperate with moving in bed and turning, a lot of education provided with getting out of hospital and preventing further skin beak down
--- NOTE | 2023-08-29 12:20 | PM.TDS ---
Transfer Summary Providers Date of Admission: 08/11/23 14:36 Date of Discharge/Transfer: 08/29/23 Attending Provider at Admission: Willi Mcgraw MD Attending Provider at Transfer: Jorge Yañez Primary Care Provider: Karla Ryan MD Transfer Plans: Anticipated date of transfer: 08/29/23. Diagnoses at Discharge Discharge Diagnosis (1) Acute renal failure: Status: Acute Qualifiers: Acute renal failure type: unspecified Qualified Code(s): N17.9 - Acute kidney failure, unspecified Reason for Visit Reason for Visit sob Hospital Course Hospital Course 58-year-old gentleman was admitted after presenting with shortness of breath, he has prior history of coronary disease, stenting of RCA and LAD in 2016, ischemic cardiomyopathy, status post ICD, on presentation with progressive shortness of breath, additionally found to be in wide-complex tachycardia on presentation, with concern for decompensated CHF, flash pulmonary edema, underwent DC cardioversion, additionally found to have bilateral pneumonia, required intubation, mechanical ventilatory support, with sepsis and septic shock on presentation, received treatment including pressor support, subsequently also found to have COVID-19 severe illness, for which she completed treatment with remdesivir, Decadron. With septic shock and multiorgan injury including shock liver, acute renal failure, required temporary support with hemodialysis. Blood culture eventually also growing 2 sets Staph lundgensis, one of the sets with Staph epidermidis. Possible contaminiation, but chosen to treat with prolonged antibiotic course given overall condition. Had a TTE which did not show gross abnormality on the contrast-enhanced study, was seen by infectious disease with recommendation for a month of cefazolin. Sputum culture additionally growing MSSA. Last day of treatment to be 09/13/2023. Should follow up with ID. PICC line was placed on 08/23. Oxygenation eventually gradually improved. Extubated, continuing with HHF, intermittent BiPAP. Intermittent NSVT, intermittent A-fib. On amiodarone and anticoagulation. On aspirin, Brilinta. Was seen by cardiology, no acute intervention found indicated, should follow-up after discharge for cardiac condition as well as to reassess continuation of amiodarone versus switching to other medication, and should follow-up with primary provider to monitor for any amiodarone related disease. Echocardiogram showing ejection fraction of 36%. Marked elevation of D-dimer on presentation, possibly secondary to acute illness and other problems, CT on presentation without PE, later not repeated due to renal failure, additionally unable to cooperate with VQ scan. Venous duplex 08/11 was negative for DVT. On anticoagulant also for atrial fibrillation, also empirically in case of possible VTE in the course of hospitalization. On presentation with acute encephalopathy, CT head without acute moderate, diffuse paranasal sinusitis with air-fluid levels. With treatment of underlying conditions encephalopathy has shown improvement. Has been generally weak, with poor oral intake, likely ICU myopathy, possibility of statin myopathy, with mild CK elevation of earlier in hospitalization, statin has been discontinued for now. Poor oral intake, was started on TPN, although had to be held in decreased transiently due to decompensation of congestive heart failure/fluid overload, with improvement. Renal function has been improving, went into diuretic phase transiently, volume compensated, polyuria has subsided. Resumed on lower rate TPN, is having some oral intake as well. Shock liver had resolved. Liver ultrasound with incidental finding of fatty liver infiltration. Some secretion buildup, not very effectual cough, has been on pulmonary toilet, chest vest, hypertonic saline nebs. Low rate Precedex use for intermittent anxiety, continues on heated high flow oxygen, pulmonary toilet, chest vest, hypertonic saline, intermittent BiPAP support, he sometimes asked for BiPAP even though oxygenation is good likely related also to some anxiety. States that he wants to continue to rehabilitate, physical therapy has been seeing him, has had some difficulties with motivation, but discussed with him intends to work with therapy and understands the importance and states that he intends to work with therapy. Discussing consideration of depression, feeling may be at risk, he denies suicidal ideation, currently states it is possibly he may have depression, the same time declines consideration of medical therapy for now, but will think about it and let us know depending on his condition. Continue optimization of controlled diabetes. Sleep apnea HTN, off any antihypertensives for now due to soft blood pressures, started on midodrine. Some pressor requirement last night, blood pressures better today, not on pressor, 103/66. HLD Chronic kidney disease Discussed hospitalization and condition with accepting physician at [facility], they have my contact in case of additional questions. Called and spoke also with his mother, discussing some of his hospitalization, condition. Physical Exam Const: GENERAL APPEARANCE: cooperative NUTRITIONAL APPEARANCE: obese ORIENTATION/CONSCIOUSNESS: Yes awake OTHER: Weak, more alert and interactive. Coughs on request. Squeezes both hands. Slightly stronger. HENMT: COMMON NORMALS: oropharynx normal Neck/C-Spine: COMMON NORMALS: no JVD Resp: COMMON NORMALS: normal respiratory effort and clear to auscultation bilaterally AUSCULTATION: clear to auscultation bilaterally Cardio: COMMON NORMALS: no JVD, regular rhythm, S1 normal heart sound present, S2 normal heart sound present and No murmurs present (Cardio) RHYTHM: regular rhythm HEART SOUNDS: S1 normal heart sound present and S2 normal heart sound present GI: COMMON NORMALS: Normal to inspection, nondistended, normoactive bowel sounds present, Soft to palpation and non-tender PALPATION: Yes Soft to palpation Extremity: COMMON NORMALS: no joint enlargement GENERAL: Yes edema (1+) Urinary Catheter Management: [place]ciaga: Cath Placed During This Visit: yes Reason for Continuing Indwelling Catheter: Accurate Measurement of Urinary Output in Critically Ill Patients Urinary Catheter Date of Insertion: 08/11/23 Urinary Catheter Time of Insertion: 12:38 TS Data Studies Completed and Pending Pending at discharge Category Date Time Status Complete Blood Count w/Auto AM LABS Lab 08/30/23 04:00 Ordered Complete Blood Count w/Auto AM LABS Lab 08/31/23 04:00 Ordered Complete Blood Count w/Auto AM LABS Lab 09/01/23 04:00 Ordered Comprehensive Metabolic Panel AM LABS Lab 08/30/23 04:00 Ordered Comprehensive Metabolic Panel AM LABS Lab 08/31/23 04:00 Ordered Comprehensive Metabolic Panel AM LABS Lab 09/01/23 04:00 Ordered Completed Studies During Hospitalization Category Date Time Status CT head wo con* [id number] Routine Cat Scan 08/19/23 10:15 Completed CTA chest [CT angio chest PE protcl 62183] Stat Cat Scan 08/11/23 12:49 Completed CXRP [XR chest 1V portable 02136] Routine Exams 08/23/23 12:39 Completed CXRP [XR chest 1V portable 50008] Routine Exams 08/26/23 11:07 Completed CXRP [XR chest 1V portable 64027] Urgent Exams 08/20/23 13:55 Completed XR KUB portable 11485 QAM Exams 08/21/23 17:32 Completed XR KUB portable 12384 Routine Exams 08/17/23 09:17 Completed XR chest 1V portable 99685 Routine Exams 08/13/23 07:00 Completed XR chest 1V portable 17714 Routine Exams 08/14/23 07:00 Completed XR chest 1V portable 25589 Routine Exams 08/15/23 07:00 Completed XR chest 1V portable 13905 Routine Exams 08/16/23 07:00 Completed XR chest 1V portable 15608 Routine Exams 08/17/23 07:00 Completed XR chest 1V portable 24739 Routine Exams 08/18/23 07:00 Completed XR chest 1V portable 25148 Routine Exams 08/21/23 07:00 Completed XR chest 1V portable 50176 Routine Exams 08/22/23 07:00 Completed XR chest 1V portable 89504 Routine Exams 08/24/23 07:00 Completed XR chest 1V portable 42358 Stat Exams 08/12/23 03:58 Completed XR chest 1V portable 99125 Stat Exams 08/11/23 11:48 Completed Blood Cultures ([facility]) Routine Lab 08/16/23 12:15 Completed Blood Cultures ([facility]) Routine Lab 08/16/23 12:40 Completed Blood Cultures ([facility]) Routine Lab 08/20/23 19:22 Completed Blood Cultures ([facility]) Routine Lab 08/20/23 19:27 Completed Blood Cultures ([facility]) Routine Lab 08/11/23 19:20 Completed Blood Cultures ([facility]) Routine Lab 08/11/23 19:20 [place] [id number] Routine Ultrasound 08/11/23 16:05 Completed CV. echo complete* 12911 Stat Ultrasound 08/11/23 15:10 Completed CV. echo wo/w contrast 09357 Routine Ultrasound 08/19/23 13:00 Completed US abdomen limited 20111 Stat Ultrasound 08/13/23 08:29 Completed Laboratory Last Values WBC 11.62 10^3/uL (3.29-11.43) H 08/29/23 04:12 Corrected WBC Cancelled 08/12/23 04:50 RBC 3.10 10^6/uL (3.85-5.65) L 08/29/23 04:12 Hgb 9.00 g/dL (11.27-16.99) L 08/29/23 04:12 Hct 28.8 % (37-53) L 08/29/23 04:12 MCV 92.9 fl (82-101) 08/29/23 04:12 MCH 29.0 pg (27-33) 08/29/23 04:12 MCHC 31.3 g/dL (30-55) 08/29/23 04:12 RDW 16.9 % (12.1-15.1) H 08/29/23 04:12 Plt Count 165 10^3/cmm (157-399) 08/29/23 04:12 MPV 11.7 fL (7.4-10.4) H 08/29/23 04:12 Gran % Cancelled 08/12/23 04:50 Neut % (Auto) 76.0 % 08/29/23 04:12 Lymph % (Auto) 6.6 % 08/29/23 04:12 [place] % (Auto) 5.7 % 08/29/23 04:12 Eos % (Auto) 9.2 % 08/29/23 04:12 Baso % (Auto) 1.0 % 08/29/23 04:12 Neut # (Auto) 8.83 10^3/uL (1.8-7.7) H 08/29/23 04:12 Lymph # (Auto) 0.8 10^3/uL (0.8-4.8) 08/29/23 04:12 [place] # (Auto) 0.7 10^3/uL (0.2-0.9) 08/29/23 04:12 Eos # (Auto) 1.1 10^3/uL (0.0-0.8) H 08/29/23 04:12 Baso # (Auto) 0.1 10^3/uL (0.0-0.1) 08/29/23 04:12 Absolute Gran (auto) Cancelled 08/12/23 04:50 Nucleated RBC % (auto) 0.9 % 08/29/23 04:12 Nucleated RBCs # 0.1 /100WBC 08/29/23 04:12 PT 16.60 SECONDS (12.1-14.9) H 08/23/23 05:03 INR 1.29 (0.8-1.2) H 08/23/23 05:03 APTT 54.0 SECONDS (23.9-36.7) H 08/18/23 01:07 Fibrinogen 286 mg/dL (174-498) 08/18/23 01:07 Fibrin Degrad Products 80 mcg/mL (LESS THAN 5) H 08/18/23 01:23 D-Dimer >= 20.00 ug/mLFEU (0-0.59) H 08/18/23 01:07 Specimen Type Arterial 08/26/23 00:28 Sample Site Radial, left 08/26/23 00:28 ABG pH 7.44 (7.35-7.45) 08/26/23 00:28 ABG pCO2 56.4 mmHg (35-45) H 08/26/23 00:28 ABG pO2 88.5 mmHg (80.0-100.0) 08/26/23 00: ABG PO2/FiO2 Ratio 0 08/26/23 00: ABG HCO3 38.0 mmol/L (22-26) H 08/26/23 00: ABG O2 Saturation 96.5 08/26/23 00:28 ABG Base Excess 11.8 mmol/L (-2.0-2.0) H 08/26/23 00:28 Jj Test Pos 08/26/23 00:28 A-a O2 Gradient 16.9 mmHg (5-10) H 08/26/23 00:28 Hematocrit 36.3 % (42-52) L 08/26/23 00:28 Hgb O2 Saturation 94.8 % (95-100) L 08/26/23 00:28 Carboxyhemoglobin 1.5 %THgb (0.4-20.1) 08/26/23 00:28 Methemoglobin 0.3 % (0.4-1.5) L 08/26/23 00:28 Total Hemoglobin 11.8 g/dL (14-18) L 08/26/23 00:28 Sodium 150.0 mmol/L (131-143) H 08/26/23 00:28 Potassium 3.5 mmol/L (3.5-5.0) 08/26/23 00:28 Glucose 175.0 mg/dL (70-115) H 08/26/23 00:28 Ionized Calcium 1.2 mmol/L (1.1-1.4) 08/26/23 00:28 O2 Delivery Device Bipap 08/26/23 00:28 FiO2 40.0 % 08/26/23 00:28 Tidal Volume 0.45 08/21/23 04:52 PEEP 8.0 cmH20 08/21/23 04:52 CPAP 10.0 cmH20 08/15/23 04:40 Camera Assembler ID John 08/26/23 00:28 Sodium 134 mmol/L (136-145) L 08/29/23 04:12 Potassium 4.4 mmol/L (3.5-5.1) 08/29/23 04:12 Chloride 91 mmol/L (98-107) L 08/29/23 04:12 Carbon Dioxide 32 mmol/L (22-29) H 08/29/23 04:12 Anion Gap 15.4 (5-19) 08/29/23 04:12 BUN 57 mg/dL (6-20) H 08/29/23 04:12 Creatinine 1.3 mg/dL (0.7-1.2) H 08/29/23 04:12 GFR Calculation 56.5 mL/min (90-130) L 08/29/23 04:12 Glucose 193 mg/dL (65-115) H 08/29/23 04:12 POC Glucose 208 mg/dL (70-110) H 08/29/23 11:11 Estimat Average Glucose 183 08/11/23 12:39 Hemoglobin A1c 8.0 % (4.0-6.0) H 08/11/23 12:39 Calculated Osmolality 299 mOsm/kg (285-295) H 08/29/23 04:12 Lactic Acid 1.5 mmol/L (0.5-2.2) 08/26/23 03:22 Lactic Acid (Sepsis) 2.1 mmol/L (0.5-2.2) 08/11/23 00:50 Lactate 2.0 mmol/L (0.5-2.2) 08/23/23 05:03 Calcium 9.0 mg/dL (8.5-10.5) 08/29/23 04:12 Phosphorus 2.7 mg/dL (2.5-4.5) 08/26/23 03:22 Magnesium 2.0 mg/dL (1.7-2.3) 08/26/23 03:22 Total Bilirubin 1.4 mg/dL (0.15-1.2) H 08/29/23 04:12 Direct Bilirubin 3.20 mg/dL (0.00-0.30) H 08/13/23 05:43 GGT 58 U/L (8-61) 08/13/23 05:43 AST 36 U/L (0-40) 08/29/23 04:12 ALT < 5 U/L (0-41) 08/29/23 04:12 Alkaline Phosphatase 96 U/L (40-130) 08/29/23 04:12 Creatine Kinase 51 U/L (39-308) 08/23/23 05:03 Troponin T Baseline 52 ng/L (0-15) H 08/19/23 12:53 Troponin T 120 Minute 54.74 ng/L (0-15) H 08/19/23 15:41 Delta Troponin T 2.74 ABS# (0-10) 08/19/23 15:41 Troponin T Hi Sens 6Hr 47.01 ng/L (0-15) H 08/19/23 19:33 Troponin T Hi Sens 6Hr Delta -4.99 ng/L (0-12) L 08/19/23 19:33 C-Reactive Protein 61.5 mg/L (0.0-4.9) H 08/26/23 03:22 NT-Pro-B Natriuret Pep 9689 pg/mL (0-125) H 08/26/23 03:22 Total Protein 6.9 g/dL (6.6-8.7) 08/29/23 04:12 Albumin 3.5 g/dL (3.5-5.2) 08/29/23 04:12 Globulin 3.4 g/dL (1.3-4.6) 08/29/23 04:12 Triglycerides 91 mg/dL (0-150) 08/11/23 12:39 Cholesterol 132 mg/dL (0-200) 08/11/23 12:39 LDL Cholesterol, Calc 70 mg/dL (50-129) 08/11/23 12:39 HDL Cholesterol 44 mg/dL (60-100) L 08/11/23 12:39 LDL/HDL Ratio 1.59 RATIO (0.00-3.22) 08/11/23 12:39 Cholesterol/HDL Ratio 3.00 mg/dL (1.0-5.00) 08/11/23 12:39 Amylase 161 U/L (28-100) H 08/13/23 05:43 Lipase 175 U/L (13-60) H 08/13/23 05:43 Procalcitonin 0.83 ng/mL (0-0.5) H 08/26/23 03:22 TSH 13.34 uIU/mL (0.27-4.20) H 08/25/23 09:05 Free T4 1.06 ng/dL (0.82-1.77) 08/25/23 09:05 Free T3 1.4 PG/ML (2.0-4.4) L 08/25/23 09:05 Urine Color Brown (Yellow) A 08/20/23 18:07 Urine Appearance Cloudy (CLEAR) A 08/20/23 18:07 Urine pH 5 (5-7) 08/20/23 18:07 Ur Specific Le[place]on 1.015 (1.005-1.030) 08/20/23 18:07 Urine Protein 1+ (Negative) H 08/20/23 18:07 Urine Glucose (UA) 4+ (Normal) H 08/20/23 18:07 Urine Ketones 1+ (Negative) H 08/20/23 18:07 Urine Blood 3+ (Negative) H 08/20/23 18:07 Urine Nitrate Negative (Negative) 08/20/23 18:07 Urine Bilirubin Neg (Negative) 08/20/23 18:07 Urine Urobilinogen Norm mg/dL (Negative) 08/20/23 18:07 Ur Leukocyte Esterase Trace (Negative) H 08/20/23 18:07 Urine RBC >100 /hpf (0-2) H 08/20/23 18:07 Urine WBC 5-10 /hpf (0-5) H 08/20/23 18:07 Ur Squamous Epith Cells 0-4 /hpf (0-5) H 08/20/23 18:07 Amorphous Sediment 2+ /hpf 08/20/23 18:07 Urine Bacteria 1+ /hpf (NONE) H 08/20/23 18:07 Hyaline Casts 0-4 /lpf H 08/20/23 18:07 Fine Granular Casts 0-4 /lpf H 08/20/23 18:07 Urine Mucus 2+ /hpf 08/20/23 18:07 Nasal Influ A H1 2008 PCR Cancelled 08/11/23 05:22 Random Vancomycin 32.3 ug/mL (20.0-40.0) 08/19/23 06:35 Serum Ketones Negative (Negative) 08/11/23 12:39 Adenovirus (PCR) Not detected (NOT DETECT) 08/20/23 18:18 C. pneumoniae DNA (PCR) Not detected (NOT DETECT) 08/20/23 18:18 Coronavirus 229E (PCR) Not detected (NOT DETECT) 08/20/23 18:18 Hep Bs Antigen Non-reactive (Nonreactive) 08/12/23 17:40 Hep Bs Antibody 22.4 (11.5-1000) 08/12/23 17:40 Hep B Core Total Ab Non-reactive (Nonreactive) 08/12/23 17:40 Hepatitis C Antibody Non-reactive (Nonreactive) 08/12/23 17:40 Human Metapneumovir PCR Not detected (NOT DETECT) 08/20/23 18:18 Influenza A (H1) PCR Not detected (NOT DETECT) 08/20/23 18:18 Influ A (H1/09) PCR Not detected (NOT DETECT) 08/20/23 18:18 Influenza A (H3) PCR Not detected (NOT DETECT) 08/20/23 18:18 Influenza Type A Ag negative (Negative) 08/12/23 06:00 Influenza Type A (PCR) Not detected (NOT DETECT) 08/20/23 18:18 Influenza Type B Ag negative (Negative) 08/12/23 06:00 Influenza Type B (PCR) Not detected (NOT DETECT) 08/20/23 18:18 M. pneumoniae (PCR) Not detected (NOT DETECT) 08/20/23 18:18 Parainfluenza 1 (PCR) Not detected (NOT DETECT) 08/20/23 18:18 Parainfluenza 2 (PCR) Not detected (NOT DETECT) 08/20/23 18:18 Parainfluenza 3 (PCR) Not detected (NOT DETECT) 08/20/23 18:18 Parainfluenza 4 (PCR) Not detected (NOT DETECT) 08/20/23 18:18 RSV Type A (PCR) Not detected (NOT DETECT) 08/20/23 18:18 RSV Type B (PCR) Not detected (NOT DETECT) 08/20/23 18:18 Entero/Rhino (PCR) Not detected (NOT DETECT) 08/20/23 18:18 SARS-CoV-2 (PCR) Detected (NOT DETECT) A 08/20/23 18:18 SARS-CoV-2 Ag (Rapid) positive (Negative) H 08/12/23 06:00 Radiology Impressions Chest CTA 08/11/23 12:49 IMPRESSION: 1. No pulmonary embolism. 2. Multifocal bilateral consolidations suspicious for multifocal pneumonia. 3. NG tube with its tip at the gastroesophageal junction, consider advancing by at least 5 centimeters. Venous Duplex 08/11/23 16:05 IMPRESSION: No evidence of deep vein thrombosis. Abdomen Ultrasound 08/13/23 08:29 IMPRESSION: 1. Hepatomegaly with fatty infiltration of the liver. 2. No gallstones are appreciated. Gallbladder wall thickening. This is likely related to abdominal ascites. Recent Clincial Data Last Vital Signs Temp 97.6 F 08/29/23 02:56 Pulse 75 08/29/23 12:13 Resp 21 H 08/29/23 12:05 BP 95/62 08/29/23 10:00 Pulse Ox 97 08/29/23 12:11 O2 Del Method BiPAP 08/29/23 12:05 O2 Flow Rate 50 08/29/23 08:30 FiO2 30 08/29/23 12:11 Vital Signs Temp Pulse Pulse Resp Resp BP Pulse Ox 08/29/23 12:13 75 08/29/23 12:11 74 97 08/29/23 12:05 75 21 H 95 08/29/23 10:00 77 26 H 95/62 95 08/29/23 09:00 75 27 H 99/66 92 08/29/23 08:48 72 08/29/23 08:30 71 22 H 93 08/29/23 08:00 69 22 H 106/74 95 08/29/23 08:00 73 22 H 08/29/23 07:00 67 24 H 123/80 96 08/29/23 06:00 71 22 H 112/74 94 08/29/23 06:00 72 08/29/23 05:00 73 23 H 110/77 95 08/29/23 04:00 79 25 H 134/77 96 08/29/23 03:00 77 24 H 134/86 95 08/29/23 02:56 97.6 F 08/29/23 02:00 78 23 H 118/86 96 08/29/23 01:00 76 23 H 117/76 94 Pulse Ox O2 Del Method O2 Flow Rate O2 Flow Rate FiO2 FiO2 08/29/23 12:13 08/29/23 12:11 30 08/29/23 12:05 BiPAP 30 08/29/23 10:00 08/29/23 09:00 08/29/23 08:48 08/29/23 08:30 Heated High Flow 50 35 08/29/23 08:00 08/29/23 08:00 93 50 35 08/29/23 07:00 08/29/23 06:00 08/29/23 06:00 08/29/23 05:00 08/29/23 04:00 08/29/23 03:00 08/29/23 02:56 08/29/23 02:00 08/29/23 01:00 Intake & Output/Weight 08/27/23 08/28/23 08/29/23 08/30/23 06:59 06:59 06:59 06:59 Intake Total 2755 / 2755 715.532 / 715.532 955.334 / 955.334 150 / 150 Output Total 5485 / 5485 1900 / 1900 1350 / 1350 Balance -2730 / -2730 -1184.468 / -1184.468 -394.666 / -394.666 150 / 150 Weight 120.5 kg 120.202 kg 121.563 kg Vitals Last Vital Signs Temp 97.6 F 08/29/23 02:56 Pulse 75 08/29/23 12:13 Resp 21 H 08/29/23 12:05 BP 95/62 08/29/23 10:00 Pulse Ox 97 08/29/23 12:11 O2 Del Method BiPAP 08/29/23 12:05 O2 Flow Rate 50 08/29/23 08:30 FiO2 30 08/29/23 12:11 TS Medications Medications Acetaminophen (Acetaminophen 325 Mg Tablet) 650 mg PO Q6H PRN PRN Reason: Mild/Mod Pain Or Temp >/= 101 Last Admin: 08/29/23 03:33 Dose: 650 mg Albuterol/Ipratropium (Ipratropium-Albuterol 3 Ml Neb) 3 ml INHALATION Q4H.RESPIRATORY VIRA Last Admin: 08/29/23 12:10 Dose: 3 ml Amiodarone HCl (Amiodarone 200 Mg Tablet) 400 mg PO BID VIRA Last Admin: 08/29/23 08:05 Dose: 400 mg Aspirin (Aspirin 81 Mg Ec Tablet) 81 mg PO QAM [facility] Last Admin: 08/29/23 06:14 Dose: 81 mg Atorvastatin Calcium (Atorvastatin 40 Mg Tablet) 80 mg PO QPM [facility] Last Admin: 08/26/23 17:49 Dose: 80 mg Dextrose (Dextrose 50% Syringe 50 Ml) 25 ml IVP PRN PRN; Protocol PRN Reason: Adult DKA Hypoglycemia Nursing Protocol. Dextrose (Dextrose 50% Syringe 50 Ml) 50 ml IVP PRN PRN; Protocol PRN Reason: Adult DKA Hypoglycemia Nursing Protocol Enoxaparin Sodium (Enoxaparin 120 Mg/0.8 Ml Syringe) 120 mg SUBCUT Q12H [facility] Last Admin: 08/29/23 08:05 Dose: 120 mg Fluoxetine HCl (Fluoxetine 20 Mg Capsule) 20 mg PO DAILY [facility] Last Admin: 08/29/23 08:05 Dose: 20 mg norepinephrine (Levophed) 4 mg in 250 mls @ 0 mls/hr IV .Q0M [facility]; Protocol Last Titration: 08/29/23 04:39 Dose: 4 mcg/min, 15 mls/hr Dexmedetomidine/Sodium Chloride (Precedex) 400 mcg in 100 mls @ 0 mls/hr IV .Q0M [facility]; Protocol Last Titration: 08/29/23 06:15 Dose: 0.2 mcg/kg/hr, 5.74 mls/hr Dextrose (D5w) 500 mls @ 0 mls/hr IV ONCE PRN; Protocol PRN Reason: Adult Acute Hypoglycemia Prot Albumin Human (Albumin) 12.5 gm in 50 mls @ 60 mls/hr IV PRN PRN PRN Reason: Hypotension and/or symptomatic Sodium Chloride (Sodium Chloride 0.9%) 1,000 mls @ 0 mls/hr IV .Q0M PRN PRN Reason: hypotension or symptomatic Amino Acids/Electrolytes (Clinimix E 5%-20%) 1,000 mls @ 20 mls/hr IV .Q24H [facility]; Protocol Last Infusion: 08/28/23 19:20 Dose: 20 mls/hr Lidocaine HCl 5 ml/ Potassium (Chloride) 105 mls @ 25 mls/hr IV PRN PRN PRN Reason: hypokalemia Cefazolin Sodium 2,000 mg/ (Sodium Chloride) 50 mls @ 100 mls/hr IV Q8H [facility]; Protocol Last Admin: 08/29/23 11:43 Dose: 100 mls/hr Insulin Glargine (Insulin Glargine 100 Units/1 Ml) 15 unit SUBCUT Q12H [facility] Last Admin: 08/27/23 05:36 Dose: Not Given Insulin Human Lispro (Insulin Lispro 100 Unit/1 Ml) 0 unit SUBCUT WM&BEDTIME [facility]; Protocol Last Admin: 08/29/23 11:42 Dose: 8 unit Lanolin (Lanolin Oint 7 Gm) 1 applic TOPICAL PRN PRN PRN Reason: DRYNESS Levothyroxine Sodium (Levothyroxine 125 Mcg Tablet) 62.5 mcg PO QAM [facility] Last Admin: 08/29/23 06:14 Dose: 62.5 mcg Midodrine (Midodrine 5 Mg Tablet) 5 mg PO TID [facility] Last Admin: 08/29/23 09:32 Dose: 5 mg Naloxone HCl (Naloxone 0.4 Mg/Ml Sdv) 0.1 mg IVP Q2M PRN PRN Reason: OPIATERV Ondansetron HCl (Ondansetron 2 Mg/Ml Sdv 2 Ml) 4 mg IVP Q8H PRN PRN Reason: vomiting, or N/V if npo Last Admin: 08/27/23 13:21 Dose: 4 mg Pantoprazole Sodium (Pantoprazole 40 Mg Sdv) 40 mg IVP Q24H [facility] Last Admin: 08/28/23 16:02 Dose: 40 mg Polyethylene Glycol (Polyethylene Glycol 3350 Pkt 17 Gm) 17 gm PO BID [facility] Last Admin: 08/29/23 08:05 Dose: 17 gm Senna/Docusate Sodium (Sennosides-Docusate Tablet) 2 tab PO BID [facility] Last Admin: 08/29/23 08:06 Dose: 2 tab Sodium Chloride (Sodium Chloride 3.5% Neb 4 Ml Neb) 4 ml INHALATION BID.RESPIRATORY [facility] Last Admin: 08/29/23 07:53 Dose: 4 ml Ticagrelor (Ticagrelor 90 Mg Tablet) 90 mg PO BID [facility] Last Admin: 08/29/23 08:06 Dose: 90 mg Discontinued Medications Alteplase, Recombinant (Alteplase 1 Mg/Ml Sdv 2 Ml) 0 mg INTRACATH Q2H PRN; Protocol PRN Reason: Poor Catheter Flow/ Clotted Catheter Amiodarone HCl (Amiodarone 50 Mg/Ml Sdv 3 Ml) 150 mg IVP ONCE ONE Stop: 08/11/23 11:35 Last Admin: 08/11/23 12:13 Dose: 150 mg Amiodarone HCl (Amiodarone 200 Mg Tablet) 400 mg PO BID VIRA Last Admin: 08/19/23 09:59 Dose: 400 mg Amiodarone HCl (Amiodarone 50 Mg/Ml Sdv 3 Ml) 150 mg IVP ONCE ONE Stop: 08/14/23 13:24 Last Admin: 08/14/23 14:19 Dose: 150 mg Amiodarone HCl (Amiodarone 50 Mg/Ml Sdv 3 Ml) 150 mg IVP ONCE ONE Stop: 08/14/23 13:42 Last Admin: 08/14/23 13:48 Dose: Not Given Amiodarone HCl (Amiodarone 50 Mg/Ml Sdv 3 Ml) 150 mg IVP ONCE ONE Stop: 08/19/23 09:46 Last Admin: 08/19/23 14:45 Dose: Not Given Apixaban (Apixaban 5 Mg Tablet) 5 mg PO BID@0900,2100 VIRA Last Admin: 08/26/23 09:18 Dose: 5 mg Aspirin (Aspirin 81 Mg Chew Tablet) 324 mg PO NOW ONE Stop: 08/11/23 11:48 Last Admin: 08/11/23 12:13 Dose: Not Given Budesonide (Budesonide 0.5 Mg/2 Ml Neb) 0.5 mg INHALATION BID.RESPIRATORY ONE Stop: 08/11/23 20:48 Last Admin: 08/11/23 20:49 Dose: 0.5 mg CRRT Dialysis Solution (Prismasol Bgk 4/2.5 - 5,000 Ml Bag) 5,000 ml CRRT CONT VIRA; Protocol Last Admin: 08/12/23 17:37 Dose: 5,000 ml CRRT Dialysis Solution (Prismasol Bgk 4/2.5 - 5,000 Ml Bag) 5,000 ml CRRT CONT VIRA; Protocol Last Admin: 08/12/23 17:45 Dose: 5,000 ml CRRT Dialysis Solution (Prismasol Bgk 4/2.5 - 5,000 Ml Bag) 5,000 ml CRRT CONT VIRA; Protocol Last Admin: 08/12/23 17:49 Dose: 5,000 ml Calcium Chloride (Calcium Chloride 10% Syr 10 Ml) 2 gm IVP ONCE ONE Stop: 08/19/23 09:45 Last Admin: 08/19/23 09:54 Dose: 2 gm Calcium Gluconate (Calcium Gluconate 0.1 Gm/Ml 10% Sdv 10ml) 1 gm IVP ONCE ONE Stop: 08/12/23 08:08 Last Admin: 08/12/23 11:03 Dose: 1 gm Carvedilol (Carvedilol 3.125 Mg Tablet) 3.125 mg PO BID [facility] Last Admin: 08/22/23 22:22 Dose: Not Given Chlorhexidine Gluconate (Chlorhexidine Gluconate 4% Btl 118 Ml) 1 applic TOPICAL Q24H [facility] Last Admin: 08/21/23 01:13 Dose: 1 applic Dexamethasone (Dexamethasone 10 Mg/Ml Inj) 6 mg IVP Q24H [facility] Last Admin: 08/15/23 14:35 Dose: 6 mg Dextrose (Dextrose 50% Syringe 50 Ml) 25 ml IVP ONCE PRN; Protocol PRN Reason: hypoglycemia protocol Dextrose (Dextrose 50% Syringe 50 Ml) 50 ml IVP PRN PRN; Protocol PRN Reason: hypoglycemia protocol Dextrose (Dextrose 50% Syringe 50 Ml) 50 ml IVP ONCE ONE Stop: 08/12/23 08:08 Last Admin: 08/12/23 11:02 Dose: 50 ml Epinephrine HCl (Epinephrine 0.1 Mg/Ml Syr 10 Ml) Confirm Administered Dose 3 mg .ROUTE .STK-MED ONE Stop: 08/11/23 21:53 Last Admin: 08/11/23 23:09 Dose: 3 mg Etomidate (Etomidate 2 Mg/Ml Inj Sdv 10 Ml) 20 mg IVP NOW ONE Stop: 08/11/23 12:16 Last Admin: 08/11/23 12:15 Dose: 20 mg Etomidate (Etomidate 2 Mg/Ml Inj Sdv 10 Ml) 20 mg .ROUTE .STK-MED ONE Stop: 08/11/23 11:09 Fentanyl (Fentanyl 50 Mcg/Ml Inj 2ml) 100 mcg IVP ONCE ONE Stop: 08/11/23 11:33 Last Admin: 08/11/23 11:50 Dose: 100 mcg Furosemide (Furosemide 10 Mg/Ml Sdv 10ml) 60 mg IVP ONCE ONE Stop: 08/12/23 13:17 Last Admin: 08/12/23 13:40 Dose: 60 mg Furosemide (Furosemide 10 Mg/Ml Sdv 10ml) 60 mg IVP ONCE ONE Stop: 08/15/23 16:31 Last Admin: 08/15/23 17:34 Dose: 60 mg Furosemide (Furosemide 10 Mg/Ml Sdv 4ml) 40 mg IVP ONCE ONE Stop: 08/20/23 06:50 Last Admin: 08/20/23 07:28 Dose: 40 mg Furosemide (Furosemide 10 Mg/Ml Sdv 4ml) 40 mg IVP ONCE ONE Stop: 08/21/23 08:40 Last Admin: 08/21/23 09:19 Dose: 40 mg Furosemide (Furosemide 10 Mg/Ml Sdv 4ml) 40 mg IVP ONCE ONE Stop: 08/22/23 21:01 Last Admin: 08/22/23 20:02 Dose: 40 mg Furosemide (Furosemide 10 Mg/Ml Sdv 4ml) 40 mg IVP ONCE ONE Stop: 08/23/23 08:11 Last Admin: 08/23/23 08:43 Dose: 40 mg Furosemide (Furosemide 10 Mg/Ml Sdv 4ml) 40 mg IVP ONCE ONE Stop: 08/24/23 07:56 Last Admin: 08/24/23 08:42 Dose: 40 mg Furosemide (Furosemide 10 Mg/Ml Sdv 4ml) 40 mg IVP ONCE ONE Stop: 08/24/23 18:01 Last Admin: 08/24/23 17:58 Dose: 40 mg Furosemide (Furosemide 10 Mg/Ml Sdv 4ml) 40 mg IVP ONCE ONE Stop: 08/25/23 08:09 Last Admin: 08/25/23 09:16 Dose: 40 mg Furosemide (Furosemide 10 Mg/Ml Sdv 4ml) 40 mg IVP ONCE ONE Stop: 08/25/23 21:01 Last Admin: 08/25/23 20:42 Dose: 40 mg Furosemide (Furosemide 10 Mg/Ml Sdv 4ml) 60 mg IVP ONCE ONE Stop: 08/26/23 20:17 Last Admin: 08/26/23 20:35 Dose: 60 mg Furosemide (Furosemide 10 Mg/Ml Sdv 10ml) 60 mg IVP ONCE ONE Stop: 08/27/23 07:09 Last Admin: 08/27/23 08:55 Dose: 60 mg Heparin Sodium (Porcine) (Heparin 5,000 Unit/Ml Inj 1 Ml) 4,000 unit IVP ONCE ONE Stop: 08/11/23 11:59 Last Admin: 08/11/23 12:19 Dose: 4,000 unit Heparin Sodium (Porcine) (Heparin 5,000 Unit/Ml Inj 1 Ml) 0 unit IV PRN PRN; Protocol PRN Reason: Heparin weight-base protocol Last Admin: 08/13/23 01:55 Dose: 2,300 unit Heparin Sodium (Porcine) (Heparin Lock Flush 500 Unit/5 Ml Syringe) 500 unit IV PRN PRN PRN Reason: At CRRT disconnect Heparin Sodium (Porcine) (Heparin 5,000 Unit/Ml Inj 1 Ml) 5,000 unit SUBCUT Q8H [facility] Last Admin: 08/17/23 21:44 Dose: 5,000 unit Heparin Sodium (Porcine) (Heparin, Porcine 1,000 Unit/Ml Inj 10 Ml) 1,000 unit IV ONCE ONE Stop: 08/17/23 12:37 Last Admin: 08/17/23 18:41 Dose: 1,000 unit Heparin Sodium (Porcine) (Heparin, Porcine 1,000 Unit/Ml Inj 10 Ml) 1,000 unit IV ONCE ONE Stop: 08/19/23 07:01 Last Admin: 08/19/23 14:48 Dose: Not Given Heparin Sodium (Porcine) (Heparin 5,000 Unit/Ml Inj 1 Ml) 5,000 unit SUBCUT Q8H [facility] Last Admin: 08/22/23 09:17 Dose: 5,000 unit Hydrocortisone Sodium Succinate (Hydrocortisone 100 Mg/2 Ml Sdv) 100 mg IVP Q12H [facility] Last Admin: 08/12/23 10:45 Dose: 100 mg Amiodarone HCl/Dextrose (Nexterone) 360 mg in 200 mls @ 0 mls/hr IV .Q0M [facility]; Protocol Last Titration: 08/13/23 12:11 Dose: Infused Fentanyl (Sublimaze) 1,000 mcg in 100 mls @ 0 mls/hr IV .Q0M [facility]; Protocol Last Titration: 08/21/23 15:51 Dose: Infused Midazolam HCl (Versed) 100 mg in 100 mls @ 0 mls/hr IV .Q0M [facility]; Protocol Last Titration: 08/15/23 11:00 Dose: 0 mg/hr, 0 mls/hr Propofol (Diprivan) 1,000 mg in 100 mls @ 0 mls/hr IV .Q0M [facility]; Protocol Last Titration: 08/18/23 09:15 Dose: 0 mcg/kg/min, 0 mls/hr Heparin Sodium/Sodium Chloride (Heparin Drip) 25,000 unit in 500 mls @ 0 mls/hr IV .Q0M [facility]; Protocol Last Titration: 08/13/23 12:11 Dose: Infused Vasopressin (Vasostrict) 40 unit in 100 mls @ 0 mls/hr IV .Q0M [facility]; Protocol Last Titration: 08/13/23 19:45 Dose: 0 unit/min, 0 mls/hr Albumin Human (Albumin) 25 g in 100 mls @ 60 mls/hr IV Q8H [facility] Last Admin: 08/16/23 09:04 Dose: 60 mls/hr Meropenem 1,000 mg/ Sodium (Chloride) 50 mls @ 100 mls/hr IV Q8H [facility]; Protocol Last Infusion: 08/17/23 08:34 Dose: Infused Vancomycin/PEG/NADA/Lysine/Water (Vancocin) 1,500 mg in 300 mls @ 200 mls/hr IV Q24H [facility] Last Infusion: 08/12/23 22:22 Dose: Infused Epinephrine HCl 2.5 mg/ Sodium (Chloride) 252.5 mls @ 0 mls/hr IV .Q0M [facility]; Protocol Last Titration: 08/13/23 11:00 Dose: 0 mcg/kg/min, 0 mls/hr Sodium Chloride (Sodium Chloride 0.9%) Confirm Administered Dose 250 mls @ as directed .ROUTE .STK-MED ONE Stop: 08/11/23 21:52 Sodium Chloride (Sodium Chloride 0.9%) 1,000 mls @ 999 mls/hr IV .Q1H1M ONE Stop: 08/11/23 23:30 Last Infusion: 08/12/23 01:02 Dose: Infused Sodium Bicarbonate 150 meq/ (Dextrose) 1,150 mls @ 25 mls/hr IV .Q24H [facility] Last Admin: 08/16/23 10:13 Dose: Not Given Remdesivir 200 mg/ Sodium (Chloride) 100 mls @ 100 mls/hr IV ONCE ONE Stop: 08/12/23 09:04 Last Infusion: 08/12/23 12:25 Dose: Infused Remdesivir 100 mg/ Sodium (Chloride) 100 mls @ 100 mls/hr IV Q24H [facility] Stop: 08/16/23 09:59 Last Admin: 08/16/23 09:33 Dose: 100 mls/hr Insulin Human Regular 10 unit/ (N/A) 0.1 mls @ 0 mls/hr IVP ONCE ONE Stop: 08/12/23 08:08 Last Infusion: 08/12/23 11:28 Dose: Infused Dopamine HCl/Dextrose (Intropin Drip) 400 mg in 250 mls @ 19.136 mls/hr IV CONT [facility]; Protocol Last Admin: 08/16/23 13:20 Dose: Not Given Vancomycin/PEG/NADA/Lysine/Water (Vancocin) 1,250 mg in 250 mls @ 250 mls/hr IV Q36H [facility] Last Infusion: 08/17/23 07:27 Dose: Infused Lidocaine HCl 5 ml/ Potassium (Chloride) 105 mls @ 25 mls/hr IV PRN PRN PRN Reason: hypokalemia Insulin Human Regular 250 unit (/ Sodium Chloride) 252.5 mls @ 0 mls/hr IV .Q0M [facility]; Protocol Last Titration: 08/16/23 06:35 Dose: 11 unit/hr, 11.11 mls/hr Amiodarone HCl/Dextrose (Nexterone) 360 mg in 200 mls @ 0 mls/hr IV .Q0M [facility]; Protocol Last Titration: 08/17/23 22:07 Dose: Infused Potassium Chloride/Dextrose (Dextrose 5% + Kcl 20 Meq) 20 meq in 1,000 mls @ 100 mls/hr IV .Q10H [facility] Furosemide 100 mg/ Sodium (Chloride) 50 mls @ 10 mls/hr IV .Q5H [facility]; Protocol Sodium Chloride (Sodium Chloride 0.9%) 1,000 mls @ 0 mls/hr IV .Q0M PRN PRN Reason: hypotension or symptomatic Albumin Human (Albumin) 12.5 gm in 50 mls @ 60 mls/hr IV PRN PRN PRN Reason: Hypotension and/or symptomatic Last Infusion: 08/18/23 07:31 Dose: Infused Sodium Chloride (Sodium Chloride 0.9%) 1,000 mls @ 0 mls/hr IV .Q0M PRN PRN Reason: hypotension or symptomatic Meropenem 500 mg/ Sodium (Chloride) 50 mls @ 100 mls/hr IV Q12H [facility]; Protocol Last Infusion: 08/23/23 19:02 Dose: Infused Linezolid (Zyvox Premix) 600 mg in 300 mls @ 300 mls/hr IV Q12H [facility]; Protocol Last Infusion: 08/23/23 19:02 Dose: Infused Vasopressin (Vasostrict) 40 unit in 100 mls @ 0 mls/hr IV .Q0M [facility]; Protocol Magnesium Sulfate (Magnesium Sulfate Premix) 2 gm in 50 mls @ 50 mls/hr IV ONCE ONE Stop: 08/19/23 10:43 Last Infusion: 08/19/23 11:15 Dose: Infused Amiodarone HCl/Dextrose (Nexterone) 360 mg in 200 mls @ 0 mls/hr IV .Q0M [facility]; Protocol Lidocaine HCl/Dextrose (Lidocaine Drip) 2,000 mg in 500 mls @ 15 mls/hr IV .Q24H [facility] Last Infusion: 08/19/23 12:31 Dose: Infused Amiodarone HCl/Dextrose (Nexterone) 360 mg in 200 mls @ 0 mls/hr IV .Q0M [facility]; Protocol Last Titration: 08/22/23 22:22 Dose: Infused Amiodarone HCl/Dextrose (Nexterone) 150 mg in 100 mls @ 400 mls/hr IV ONCE ONE Stop: 08/19/23 12:22 Last Infusion: 08/19/23 12:50 Dose: Infused Potassium Chloride (K-James) 100 mls @ 25 mls/hr IV ONCE ONE Stop: 08/21/23 09:13 Last Admin: 08/21/23 06:33 Dose: 25 mls/hr Lidocaine HCl 5 ml/ Potassium (Chloride) 105 mls @ 26.25 mls/hr IV ONCE ONE Stop: 08/21/23 12:38 Last Admin: 08/21/23 09:34 Dose: Not Given fat emulsions 20% (Intralipid 20%) 100 mls @ 8.333 mls/hr IV Q24H [facility] Last Infusion: 08/26/23 07:45 Dose: Infused Lidocaine HCl 5 ml/ Potassium (Chloride) 105 mls @ 26.25 mls/hr IV Q4H [facility] Stop: 08/22/23 13:44 Last Infusion: 08/22/23 22:23 Dose: Infused Albumin Human (Albumin) 25 g in 100 mls @ 60 mls/hr IV ONCE ONE Stop: 08/22/23 10:07 Last Infusion: 08/22/23 22:22 Dose: Infused Albumin Human (Albumin) 25 g in 100 mls @ 60 mls/hr IV ONCE ONE Stop: 08/23/23 09:51 Last Infusion: 08/23/23 19:01 Dose: Infused Lidocaine HCl 5 ml/ Potassium (Chloride) 105 mls @ 26.25 mls/hr IV ONCE ONE Stop: 08/23/23 12:11 Last Infusion: 08/23/23 23:08 Dose: Infused Vancomycin/PEG/NADA/Lysine/Water (Vancocin) 1,500 mg in 300 mls @ 200 mls/hr IV Q24H [facility] Last Admin: 08/23/23 19:01 Dose: Not Given Albumin Human (Albumin) 25 g in 100 mls @ 60 mls/hr IV ONCE ONE Stop: 08/25/23 09:54 Last Infusion: 08/25/23 11:00 Dose: Infused Lidocaine HCl 5 ml/ Potassium (Chloride) 105 mls @ 52.5 mls/hr IV ONCE ONE Stop: 08/25/23 22:59 Last Infusion: 08/25/23 22:48 Dose: Infused Albumin Human (Albumin) 12.5 gm in 250 mls @ 300 mls/hr IV ONCE ONE Stop: 08/28/23 11:49 Albumin Human (Albumin) 25 g in 100 mls @ 60 mls/hr IV ONCE ONE Stop: 08/28/23 13:09 Last Admin: 08/28/23 12:09 Dose: 60 mls/hr Insulin Glargine (Insulin Glargine 100 Units/1 Ml) 10 unit SUBCUT ONCE ONE Stop: 08/13/23 10:17 Last Admin: 08/13/23 12:08 Dose: 10 unit Insulin Glargine (Insulin Glargine 100 Units/1 Ml) 10 unit SUBCUT ONCE ONE Stop: 08/22/23 12:43 Last Admin: 08/22/23 13:14 Dose: 10 unit Insulin Glargine (Insulin Glargine 100 Units/1 Ml) 10 unit SUBCUT [facility] Last Admin: 08/24/23 05:04 Dose: 10 unit Insulin Glargine (Insulin Glargine 100 Units/1 Ml) 10 unit SUBCUT Q12H [facility] Last Admin: 08/25/23 05:38 Dose: 10 unit Insulin Glargine (Insulin Glargine 100 Units/1 Ml) 5 unit SUBCUT ONCE ONE Stop: 08/25/23 08:15 Last Admin: 08/25/23 09:16 Dose: 5 unit Insulin Human Lispro (Insulin Lispro 100 Unit/1 Ml) 0 unit SUBCUT TIDWM [facility]; Protocol Last Admin: 08/13/23 12:08 Dose: 12 unit Insulin Human Lispro (Insulin Lispro 100 Unit/1 Ml) 15 unit SUBCUT NOW ONE Stop: 08/13/23 01:29 Last Admin: 08/13/23 01:54 Dose: 15 unit Insulin Human Lispro (Insulin Lispro 100 Unit/1 Ml) 0 unit SUBCUT WM&BEDTIME [facility]; Protocol Last Admin: 08/25/23 13:00 Dose: Not Given Iohexol (Iohexol 350 Mg/Ml 500 Ml Btl (Per Ml)) 0 ml IV ONCE ONE Stop: 08/11/23 15:50 Last Admin: 08/11/23 15:49 Dose: 59 ml Levothyroxine Sodium (Levothyroxine 50 Mcg Tablet) 50 mcg PO [facility] Last Admin: 08/25/23 05:38 Dose: 50 mcg Metoprolol Tartrate (Metoprolol Tartrate 1 Mg/1 Ml Sdv 5 Ml) 2.5 mg IVP ONCE ONE Stop: 08/26/23 00:33 Last Admin: 08/26/23 00:47 Dose: 2.5 mg Midazolam HCl (Midazolam 1 Mg/Ml Inj 2 Ml) 5 mg IVP ONCE ONE Stop: 08/11/23 11:33 Last Admin: 08/11/23 12:11 Dose: Not Given Midazolam HCl (Midazolam 1 Mg/Ml Inj 2 Ml) 6 mg IVP ONCE ONE Stop: 08/11/23 12:12 Last Admin: 08/11/23 12:12 Dose: 6 mg Olanzapine (Olanzapine 10 Mg Vial) 5 mg IM ONCE ONE Stop: 08/19/23 10:33 Last Admin: 08/19/23 14:46 Dose: Not Given Perflutren Protein Type A Microsphe (Perflutren Protein-A Microsphr 0.22 Mg/Ml Sdv 3 Ml) 0 ml IV ONCE ONE Stop: 08/19/23 15:26 Last Admin: 08/19/23 15:26 Dose: 3 ml Polyethylene Glycol (Polyethylene Glycol 3350 Pkt 17 Gm) 17 gm PO ONCE ONE Stop: 08/22/23 08:30 Last Admin: 08/22/23 09:17 Dose: 17 gm Potassium Chloride (Potassium Chloride Er 20 Meq Tablet) 40 meq PO ONCE ONE Stop: 08/22/23 08:28 Last Admin: 08/22/23 09:17 Dose: 40 meq Propofol (Propofol 10 Mg/Ml Sdv 20 Ml) 200 mg IVP ONCE ONE Stop: 08/11/23 12:17 Last Admin: 08/11/23 13:29 Dose: Not Given Propofol (Propofol 10 Mg/Ml Sdv 20 Ml) 100 mg IVP ONCE ONE Stop: 08/11/23 13:28 Last Admin: 08/11/23 13:30 Dose: 100 mg Propofol (Propofol 10 Mg/Ml Sdv 20 Ml) 100 mg IVP ONCE ONE Stop: 08/11/23 13:29 Last Admin: 08/11/23 12:30 Dose: 100 mg Propofol (Propofol 10 Mg/Ml Sdv 20 Ml) 200 mg .ROUTE .STK-MED ONE Stop: 08/11/23 11:09 Sodium Chloride (Sodium Chloride 0.9% 1,000 Ml Bag) 1,000 - 7,000 ml CRRT PRN PRN PRN Reason: For priming CRRT Machine Last Admin: 08/12/23 17:34 Dose: 2,000 ml Succinylcholine Chloride (Succinylcholine 20 Mg/Ml Sdv 10ml) 100 mg IVP NOW ONE Stop: 08/11/23 12:15 Last Admin: 08/11/23 12:16 Dose: 100 mg Succinylcholine Chloride (Succinylcholine 20 Mg/Ml Sdv 10ml) 200 mg .ROUTE .STK-MED ONE Stop: 08/11/23 11:09 Allergies Sulfa (Sulfonamide Antibiotics) Allergy (Severe, Verified 08/11/23 11:31) ALGY-Anaphylaxis Home Medications acetaminophen 500 mg tablet 1,000 mg PO TID PRN Pain 11/29/20 [History Confirmed 08/13/23] aspirin 81 mg tablet,delayed release 81 mg PO QAM 11/29/20 [History Confirmed 08/13/23] atorvastatin 80 mg tablet 80 mg PO QPM 11/29/20 [History Confirmed 08/13/23] ipratropium 0.5 mg-albuterol 3 mg (2.5 mg base)/3 mL nebulization soln 3 ml inhalation QID PRN Shortness Of Breath 11/29/20 [History Confirmed 08/13/23] methocarbamol 500 mg tablet See Rx Instructions .Route .COMPLEX 11/29/20 [History Confirmed 08/13/23] nitroglycerin 0.4 mg sublingual tablet 0.4 mg sublingual Q5M PRN Chest Pain 11/29/20 [History Confirmed 08/13/23] ticagrelor 90 mg tablet (Brilinta) 90 mg PO BID 11/29/20 [History Confirmed 08/13/23] tiotropium bromide 2.5 mcg/actuation mist for inhalation (Spiriva Respimat) 2 puff inhalation DAILY 11/29/20 [History Confirmed 08/13/23] tramadol 50 mg tablet 50 - 100 mg PO TID PRN Pain 11/29/20 [History Confirmed 08/13/23] albuterol sulfate 90 mcg/actuation aerosol inhaler 2 puff inhalation QID PRN Shortness Of Breath 12/12/21 [History Confirmed 08/13/23] fluticasone 250 mcg-salmeterol 50 mcg/dose blistr powdr for inhalation (Shellie Myersub) 1 inh inhalation BID 01/25/22 [History Confirmed 08/13/23] naloxone 4 mg/actuation nasal spray 4 mg intranasal Q2M PRN overdose 01/31/22 [History Confirmed 08/13/23] ketoconazole 2 % topical cream 1 applic topical BID #60 grams 04/24/22 [Rx Confirmed 08/13/23] miconazole nitrate 2 % topical powder (Zeasorb AF) 1 applic topical DAILY #71 grams 04/24/22 [Rx Confirmed 08/13/23] metoprolol succinate 25 mg tablet,extended release 24 hr 12.5 mg (1/2 x 25 mg) PO DAILY #45 tabs 05/18/22 [Rx Confirmed 08/13/23] potassium chloride 20 mEq tablet,extended release 40 meq PO DAILY 05/18/22 [History Confirmed 08/13/23] blood-glucose meter,continuous (Dexcom G6 Cattle Feeder) #1 ea 08/23/22 [Rx Confirmed 08/11/23] blood-glucose transmitter (Dexcom G6 Transmitter device) #3 ea 08/23/22 [Rx Confirmed 08/11/23] empagliflozin 25 mg tablet (Jardiance) 25 mg PO QAM #90 tabs 08/23/22 [Rx Confirmed 08/13/23] blood-glucose sensor (Dexcom G6 Sensor device) #9 ea 04/19/23 [Rx Confirmed 08/11/23] clotrimazole 1 % topical cream 1 applic topical BID 08/13/23 [History Confirmed 08/13/23] diclofenac sodium 1 % topical gel See Rx Instructions .Route .COMPLEX PRN Pain 08/13/23 [History Confirmed 08/13/23] fluconazole 200 mg tablet See Rx Instructions .Route .COMPLEX 08/13/23 [History Confirmed 08/13/23] furosemide 20 mg tablet 20 mg PO BID 08/13/23 [History Confirmed 08/13/23] gabapentin 300 mg capsule 600 mg PO Q8H PRN Pain 08/13/23 [History Confirmed 08/13/23] insulin aspart U-100 100 unit/mL (3 mL) subcutaneous pen (Novolog FlexPen U-100 Insulin aspart) See Rx Instructions .Route .COMPLEX 08/13/23 [History Confirmed 08/13/23] levothyroxine 50 mcg tablet 50 mcg PO DAILY 08/13/23 [History Confirmed 08/13/23] lidocaine 5 % topical patch See Rx Instructions .Route .COMPLEX 08/13/23 [History Confirmed 08/13/23] losartan 50 mg tablet 25 mg PO DAILY 08/13/23 [History Confirmed 08/13/23] metformin 500 mg tablet,extended release 24 hr 500 mg PO BID 08/13/23 [History Confirmed 08/13/23] metolazone 2.5 mg tablet 2.5 mg PO EVERY OTHER DAY 08/13/23 [History Confirmed 08/13/23] spironolactone 25 mg tablet 25 mg PO DAILY 08/13/23 [History Confirmed 08/13/23] Discharge Plan Discharge Patient Disposition: Home Condition: Stable Prescriptions: No Action atorvastatin 80 mg tablet 80 mg PO QPM aspirin 81 mg tablet,delayed release (DR/EC) 81 mg PO QAM methocarbamol 500 mg tablet See Rx Instructions .ROUTE .COMPLEX Rx Instructions: Take 1 tablet by mouth each morning as needed and take 1 or 2 tablets at bedtime as needed for muscle relaxant. nitroglycerin 0.4 mg tablet, sublingual 0.4 mg SUBLINGUAL Q5M PRN (Reason: Chest Pain) Brilinta 90 mg tablet 90 mg PO BID tramadol 50 mg tablet 50 - 100 mg PO TID PRN (Reason: Pain) albuterol sulfate 90 mcg/actuation HFA aerosol inhaler 2 puff INHALATION QID PRN (Reason: Shortness Of Breath) Spiriva Respimat 2.5 mcg/actuation mist 2 puff INHALATION DAILY fluticasone propion-salmeterol [Wixela Inhub] 250-50 mcg/dose blister with device 1 inh inhalation BID potassium chloride 20 mEq tablet extended release 40 meq PO DAILY ketoconazole 2 % cream 1 applic topical BID Qty: 60 3RF Rx Instructions: Apply lightly to affected area(s) as directed under arm and both feet twice daily for 4 weeks, then apply as needed. Zeasorb AF 2 % powder 1 applic topical DAILY Qty: 71 0RF Rx Instructions: Apply lightly to affected area(s) as directed, to both feet and shoes monthly as needed. metoprolol succinate 25 mg tablet extended release 24 hr 12.5 mg PO DAILY Qty: 45 3RF Jardiance 25 mg tablet 25 mg PO QAM Qty: 90 3RF (DME) Dexcom G6 Cattle Feeder Misc See Rx Instructions miscellaneous .MEDSUPPLY Qty: 1 3RF Rx Instructions: change every 90 days (DME) Dexcom G6 Transmitter Device See Rx Instructions .MEDSUPPLY Qty: 3 3RF Rx Instructions: change every 3 months (DME) Dexcom G6 Sensor Device See Rx Instructions .MEDSUPPLY Qty: 9 3RF Rx Instructions: change every 10 days acetaminophen 500 mg tablet 1,000 mg PO TID PRN (Reason: Pain) ipratropium-albuterol 0.5 mg-3 mg(2.5 mg base)/3 mL solution for nebulization 3 ml INHALATION QID PRN (Reason: Shortness Of Breath) naloxone 4 mg/actuation [place],Non-Aerosol 4 mg INTRANASAL Q2M PRN (Reason: overdose) Rx Instructions: spray 1 dose into ONE nostril; alternate nostrils w each dose until help arrives losartan 50 mg Tablet 25 mg PO DAILY metolazone 2.5 mg Tablet 2.5 mg PO EVERY OTHER DAY fluconazole 200 mg Tablet See Rx Instructions .ROUTE .COMPLEX Rx Instructions: 200 mg orally once weekly. Take on the same day each week. spironolactone 25 mg Tablet 25 mg PO DAILY levothyroxine 50 mcg Tablet 50 mcg PO DAILY lidocaine 5 % Adhesive Patch,Medicated See Rx Instructions .ROUTE .COMPLEX Rx Instructions: 1 patch topically to skin site once daily as needed for local anesthesia, Apply patch and press firmly for 10 to 15 seconds. Keep on for 12 hours, then remove patch for 12 hours. gabapentin 300 mg Capsule 600 mg PO Q8H PRN (Reason: Pain) furosemide 20 mg Tablet 20 mg PO BID metformin 500 mg Tablet Extended Release 24 Hr 500 mg PO BID clotrimazole 1 % Cream 1 applic TOPICAL BID Novolog FlexPen U-100 Insulin 100 unit/mL (3 mL) Insulin Pen See Rx Instructions .ROUTE .COMPLEX Rx Instructions: 20 unit subcutaneously three times daily and inject sliding scale of diclofenac sodium 1 % Gel See Rx Instructions .ROUTE .COMPLEX PRN (Reason: Pain) Rx Instructions: 2 g topically to affected area(s) four times daily as needed for pain. Do not exceed more than 16 grams daily to any lower extremity joint. Max 32 g per day, over all joints. Measure dose with ruler attached inside box. Discharge Orders: Transfer Out of Facility (Order); Ordered 08/29/23 Ordered By: Jorge Yañez Referrals: Karla Ryan MD [Primary Care Provider] - Patient Instructions: Dialysis Diet (DC), Hemodialysis (DC), Opioid Safety Transfer Attestations Time Spent in Transfer Care: greater than 30 min Quality Metrics Clinical Quality Measures [ No reported AMI, CVA or VTE this stay] Coding Level of Care Code 58116 Total time (in minutes) for Discharge: 65 Diagnoses Acute renal failure, unspecified acute renal failure type N17.9 Acute renal failure type: unspecified
--- NOTE | 2023-08-29 13:01 | PC.NURSE ---
[facility] accepted patient, patient and family aware
--- NOTE | 2023-08-29 14:09 | PC.NURSE ---
patient out of facility with [facility] heading to [facility]
== END 2023-08-29 14:11 | DRG 870 ==
LOC: ER 14:36 → ICU 14:46
PROVIDERS: Family Medicine; Hospitalist; Internal Medicine; Student in an Organized Health Care Education/Training Program; Admitting Provider Family Medicine; Emergency Provider Emergency Medicine; PCP Family Medicine; Visit Provider Internal Medicine
DX: A41.9 Sepsis, unspecified organism (principal); J12.82 Pneumonia due to coronavirus disease 2019; U07.1 COVID-19; I50.23 Acute on chronic systolic (congestive) heart failure; J96.22 Acute and chronic respiratory failure with hypercapnia; G93.41 Metabolic encephalopathy; J15.211 Pneumonia due to Methicillin susceptible Staphylococcus aureus; I21.4 Non-ST elevation (NSTEMI) myocardial infarction; J96.01 Acute respiratory failure with hypoxia; R57.0 Cardiogenic shock; K72.00 Acute and subacute hepatic failure without coma; I13.0 Hypertensive heart and chronic kidney disease with heart failure and stage 1 through stage 4 chronic kidney disease, or unspecified chronic kidney disease; Z68.41 Body mass index [BMI] 40.0-44.9, adult; J44.0 Chronic obstructive pulmonary disease with (acute) lower respiratory infection; E87.20 Acidosis, unspecified; N17.9 Acute kidney failure, unspecified; I47.20 Ventricular tachycardia, unspecified; E87.1 Hypo-osmolality and hyponatremia; M62.82 Rhabdomyolysis; R65.20 Severe sepsis without septic shock; I25.5 Ischemic cardiomyopathy; N18.2 Chronic kidney disease, stage 2 (mild); E11.22 Type 2 diabetes mellitus with diabetic chronic kidney disease; E11.65 Type 2 diabetes mellitus with hyperglycemia; I25.10 Atherosclerotic heart disease of native coronary artery without angina pectoris; E66.01 Morbid (severe) obesity due to excess calories; G47.33 Obstructive sleep apnea (adult) (pediatric); E78.5 Hyperlipidemia, unspecified; E87.70 Fluid overload, unspecified; E87.5 Hyperkalemia; I44.7 Left bundle-branch block, unspecified; E03.9 Hypothyroidism, unspecified; E83.39 Other disorders of phosphorus metabolism; Z87.891 Personal history of nicotine dependence; I25.2 Old myocardial infarction; Z79.4 Long term (current) use of insulin; Z95.5 Presence of coronary angioplasty implant and graft; Z95.810 Presence of automatic (implantable) cardiac defibrillator; Z79.84 Long term (current) use of oral hypoglycemic drugs
CPT/HCPCS: 31500; 36415; 36416; 36556; 36573; 36592; 36600; 51702; 70450; 71045; 71275; 74018; 76705; 80048; 80051; 80053; 80061; 80069; 80202; 81001; 82009; 82150; 82248; 82330; 82550; 82803; 82805; 82962; 82977; 83036; 83605; 83690; 83735; 83880; 84100; 84145; 84439; 84443; 84481; 84484; 85025; 85362; 85378; 85384; 85610; 85730; 86140; 86403; 86704; 86706; 86803; 87040; 87070; 87075; 87077; 87086; 87186; 87205; 87340; 87426; 87486; 87581; 87633; 87804; 90935; 92507; 92523; 92526; 92610; 93005; 93306; 93970; 94002; 94003; 94640; 94660; 94669; 94799; 96365; 96366; 96367; 96372; 96375; 96376; 97110; 97162; 97167; 97530; 99291; 99292; A4222; C1751; C8929; C9113; J0171; J0248; J0282; J0283; J0330; J0612; J0690; J1100; J1644; J1650; J1720; J1815; J1940; J2001; J2020; J2185; J2250; J2405; J2598; J2704; J3010; J3370; J3475; J3480; J3490; J7030; J7050; J7070; J7626; P9046; P9047; Q3014; Q9956; Q9967

== ENCOUNTER 2023-12-09 09:38 | Inpatient (IN) | payer OTHER, SELFPAY ==
[2023-12-09] VITALS (11 sets, daily range): BP systolic 101–138; BP diastolic 55–90; PULSE 60–72; RESP 16–20; TEMP 35.8–36.4; O2SAT 92–96
--- NOTE | 2023-12-09 09:45 | XRR_ITS ---
PROCEDURE INFORMATION: Exam: XR Chest Exam date and time: 12/09/2023 10:54 AM Age: 58 years old Clinical indication: Other: Weakness TECHNIQUE: Imaging protocol: Radiologic exam of the chest. Views: 1 view. COMPARISON: CR XR chest 1V portable [id number] 08/26/2023 11:15 AM FINDINGS: Tubes, catheters and devices: Lungs: Pulmonary interstitial prominence is much improved. Pleural spaces: No pleural effusion identified. Heart/Mediastinum: Cardiomediastinal silhouette is stable.. Stable enlargement of cardiac silhouette with unipolar cardiac pacemaker present. Bones/joints: No acute osseous abnormality identified. XR/XR chest 1V portable [id number] IMPRESSION: Much improved pulmonary interstitial prominence likely diminished edema.
--- NOTE | 2023-12-09 09:46 | ECG_ITS ---
[facility] Test Date: 2023-12-09 Pat Name: Param Tejada Department: Room: Gender: Male House Call[facility] Nurse Practitioner: : [id number] Requested By: Dina Lehman Order Number: [id number] Almita MD: Juan Carlos Peña M.D. Measurements Intervals [place] Rate: 60 P: 0 LA: 0 QRS: -81 QRSD: 227 T: 92 QT: 388 QTc: 388 Interpretive Statements ELECTRONIC VENTRICULAR PACEMAKER ABNORMAL RHYTHM ECG Compared to ECG 08/23/2023 10:04:48 Sinus rhythm no longer present Right-axis deviation no longer present Right bundle-branch block no longer present Myocardial infarct finding no longer present Electronically Signed On 12-09-2023 22:49:26 CDT by Juan Carlos Peña M.D. [email or web address]
--- NOTE | 2023-12-09 09:50 | CT_ITS ---
WS: [id number] CT HEAD NONCONTRAST HISTORY: weakness TECHNIQUE: Contiguous axial imaging performed through the brain in 2.5 mm imaging. Bone and soft tiss ue windows. Sagittal and coronal reformats reviewed. All CT scans at [facility] use at least one of these dose optimization techniques: automated exposure control; mA and/or kV adjustment per pa tient size (includes targeted exams where dose is matched to clinical indication); or iterative recon struction. DLP: 1094.43 mGy.cm COMPARISON: 08/19/2023 No acute intracranial hemorrhage, midline shift or mass effect. Mild atrophy and mild small vessel ischemic disease. No progression since the prior study. No acute i nfarct. Ventricles: Normal size with no hydrocephalus. No inferior displacement of the cerebellar tonsils. Paranasal sinuses: Significant improvement in the paranasal sinus disease described on the prior stud y. Essentially resolved sinusitis. Mastoid air cells: Well pneumatized. Calvarium and scalp: Skull is intact with no soft tissue edema or swelling. CT/CT head wo con* [id number] IMPRESSION: 1. No acute intracranial hemorrhage or edema. 2. Mild cerebral atrophy and mild small vessel ischemic disease. 3. Complete resolution of acute paranasal sinusitis described on 08/19/2023.
--- NOTE | 2023-12-09 10:00 | ED_ITS ---
HPI - General Adult 2 General: Chief complaint: General Medical Stated complaint: General Weakness Time Seen by Provider: 12/09/23 09:42 Source: patient and EMS Mode of arrival: EMS Limitations: no limitations History of Present Illness: 58-year-old male who has extensive medic al history and is currently in senior living states he been feeling weak for the last 2 days states has been generally weak has no specific complaints per senior living he has had worsening kidney function on his labs and today was bradycardic and hypotension there. Here is got a paced rhythm in the 60s and blood pressure is 100/61 he had no fevers denies any cough denies any vomiting or diarrhea. Associated symptoms: Reports malaise; Deny chest pain, dyspnea, headache(s), nausea, rash or vomiting Review of Systems 2 Const: Reports: malaise; Denies: fever(s), chills, body aches or change in appetite Eyes: Denies: blurry vision or eye discomfort ENMT: Denies: throat pain or dental pain Card: Denies: chest pain Resp: Denies: dyspnea GI: Denies: abdominal pain, nausea, vomiting or diarrhea Musc: Denies: neck pain or back pain Skin/Breast: Denies: rash Neuro: Denies: headache(s) PFSH ED 2 PFSH: Medical History Renal calculus Hypokalemia Hyponatremia Ischemic cardiomyopathy Personal history of nicotine dependence Hypertension Diabetes CHF (congestive heart failure) CAD (coronary artery disease) Hypoxia 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 Mother No problems noted. Denies family history of CAD (coronary artery disease) Social History Smoking and tobacco/nicotine status: former use of tobacco/nicotine Alcohol intake: never Substance/Drug Use: never Marital status: Single Current occupational status: disabled Do you think of yourself as: Straight/Heterosexual Course 2 Vital Signs: Vital signs: Vital Signs Temperature 96.4 F L 12/09/23 09:48 Pulse Rate 60 12/09/23 12:00 Respiratory Rate 16 12/09/23 11:13 Blood Pressure 108/74 12/09/23 12:00 Pulse Oximetry 94 12/09/23 12:00 Oxygen Delivery Me thod Room Air 12/09/23 12:00 MDM - General Adult Medical Decision Making Patient presents with weakness he is hypotensive at senior living and had increasing worsening renal function was found to have a cystitis here did give him 1 L of fluids his lactate improved after that started on IV antibiotics did not give him more fluids due to his severe history of CHF did not want to throw him into heart failure spoke to hospitalist will admit Medical Records I reviewed the patient's medical records. Lab Data I reviewed the patient's lab results. 12/09/23 10:28 12/09/23 10:28 Radiology Impressions Chest X-Ray 12/09/23 09:45 IMPRESSION: Much improved pulmonary interstitial prominence likely diminished edema. Head CT 12/09/23 09:50 IMPRESSION: 1. No acute intracranial hemorrhage or edema. 2. Mild cerebral atrophy and mild small vessel ischemic disease. 3. Complete resolution of acute paranasal sinusitis described on 08/19/2023. Abdomen/Pelvis CT 12/09/23 11:29 IMPRESSION: 1. There are 3 nonobstructive left intrarenal calculi. No ureteral calculus or acute obstructive uropathy is identified. Follow-up with contrast CT urogram should be considered, when clinically appropriate, given history of hematuria. 2. Stranding within the fat immediately anterior to the urinary bladder with thickening of the adjacent bladder wall, findings could relate to cystitis. Appropriate follow-up recommended. 3. Suspected gallbladder sludge or faint stones. Some stranding within the pericholecystic fat, consider cholecystitis in the appropriate context. 4. Findings suggesting sequelae of recent surgery including small volume free fluid in the peritoneal space. COMMENTS: Please note that lack of IV contrast limits both the sensitivity, and the specificity, of the examination, particularly as regards focal lesions in the solid organs. Laboratory Results WBC 6.67 10^3/uL (3.29-11.43) 12/09/23 10: RBC 5.84 10^6/uL (3.85-5.65) H 12/09/23 10:28 Hgb 14.60 g/dL (11.27-16.99) 12/09/23 10:28 Hct 49.5 % (37-53) 12/09/23 10:28 MCV 84.8 fl (82-101) 12/09/23 10:28 MCH 25.0 pg (27-33) L 12/09/23 10:28 MCHC 29.5 g/dL (30-55) L 12/09/23 10:28 RDW 19.2 % (12.1-15.1) H 12/09/23 10:28 Plt Count 321 10^3/cmm (157-399) 12/09/23 10:28 MPV 11.3 fL (7.4-10.4) H 12/09/23 10:28 Neut % (Auto) 59.2 % 12/09/23 10:28 Lymph % (Auto) 23.1 % 12/09/23 10:28 [place] % (Auto) 12.3 % 12/09/23 10:28 Eos % (Auto) 4.3 % 12/09/23 10:28 Baso % (Auto) 1.0 % 12/09/23 10:28 Neut # (Auto) 3.94 10^3/uL (1.8-7.7) 12/09/23 10:28 Lymph # (Auto) 1.5 10^3/uL (0.8-4.8) 12/09/23 10:28 [place] # (Auto) 0.8 10^3/uL (0.2-0.9) 12/09/23 10:28 Eos # (Auto) 0.3 10^3/uL (0.0-0.8) 12/09/23 10:28 Baso # (Auto) 0.1 10^3/uL (0.0-0.1) 12/09/23 10:28 Nucleated RBC % (auto) 0 % 12/09/23 10:28 Nucleated RBCs # 0.0 /100WBC 12/09/23 10:28 PT 15.00 SECONDS (12.1-14.9) H 12/09/23 10:28 INR 1.14 (0.8-1.2) 12/09/23 10:28 Sodium 136 mmol/L (136-145) 12/09/23 10:28 Potassium 3.1 mmol/L (3.5-5.1) L 12/09/23 10:28 Chloride 88 mmol/L (98-107) L 12/09/23 10:28 Carbon Dioxide 31 mmol/L (22-29) H 12/09/23 10:28 Anion Gap 20.1 (5-19) H 12/09/23 10:28 BUN 76 mg/dL (6-20) H 12/09/23 10:28 Creatinine 2.2 mg/dL (0.7-1.2) H 12/09/23 10:28 GFR Calculation 30.8 mL/min (90-130) L 12/09/23 10:28 Glucose 246 mg/dL (65-115) H 12/09/23 10:28 Calculated Osmolality 313 mOsm/kg (285-295) H 12/09/23 10:28 Lactic Acid 3.4 mmol/L (0.5-2.2) H 12/09/23 10:33 Lactic Acid (Sepsis) 1.8 mmol/L (0.5-2.2) 12/09/23 12:43 Calcium 9.6 mg/dL (8.5-10.5) 12/09/23 10:28 Magnesium 3.0 mg/dL (1.7-2.3) H 12/09/23 10:28 Total Bilirubin 0.5 mg/dL (0.15-1.2) 12/09/23 10:28 AST 21 U/L (0-40) 12/09/23 10:28 ALT 18 U/L (0-41) 12/09/23 10:28 Alkaline Phosphatase 90 U/L (40-130) 12/09/23 10:28 NT-Pro-B Natriuret Pep 6238 pg/mL (0-125) H 12/09/23 10:28 Total Protein 7.6 g/dL (6.6-8.7) 12/09/23 10:28 Albumin 3.8 g/dL (3.5-5.2) 12/09/23 10:28 Globulin 3.8 g/dL (1.3-4.6) 12/09/23 10:28 TSH 27.71 uIU/mL (0.27-4.20) H 12/09/23 10:28 Urine Color Yellow (Yellow) 12/09/23 10:53 Urine Appearance Hazy (CLEAR) A 12/09/23 10:53 Urine pH 7 (5-7) 12/09/23 10:53 Ur Specific [place] 1.005 (1.005-1.030) 12/09/23 10:53 Urine Protein 1+ (Negative) H 12/09/23 10:53 Urine Glucose (UA) 2+ (Normal) H 12/09/23 10:53 Urine Ketones Negative (Negative) 12/09/23 10:53 Urine Blood 2+ (Negative) H 12/09/23 10:53 Urine Nitrate Negative (Negative) 12/09/23 10:53 Urine Bilirubin Neg (Negative) 12/09/23 10:53 Urine Urobilinogen Norm mg/dL (Negative) 12/09/23 10:53 Ur Leukocyte Esterase 2+ (Negative) H 12/09/23 10:53 Urine RBC None /hpf (0-2) 12/09/23 10:53 Urine WBC Too numerous to cnt /hpf (0-5) H 12/09/23 10:53 Ur Squamous Epith Cells 0-4 /hpf (0-5) H 12/09/23 10:53 Amorphous Sediment Not Reportable 12/09/23 10:53 Urine Bacteria 1+ /hpf (NONE) H 12/09/23 10:53 All radiology interpretation(s) finalized by discharge EKG Data EKG 1: I personally reviewed and interpreted this EKG as follows: EKG interpretation date: 12/09/23 EKG interpretation time: 09:52 Interpretation: paced hr [address] elevation qrs 227 qtc 388 Computer generated interpretation: Chest X-Ray 12/09/23 09:45 IMPRESSION: Much improved pulmonary interstitial prominence likely diminished edema. Head CT 12/09/23 09:50 IMPRESSION: 1. No acute intracranial hemorrhage or edema. 2. Mild cerebral atrophy and mild small vessel ischemic disease. 3. Complete resolution of acute paranasal sinusitis described on 08/19/2023. Abdomen/Pelvis CT 12/09/23 11:29 IMPRESSION: 1. There are 3 nonobstructive left intrarenal calculi. No ureteral calculus or acute obstructive uropathy is identified. Follow-up with contrast CT urogram should be considered, when clinically appropriate, given history of hematuria. 2. Stranding within the fat immediately anterior to the urinary bladder with thickening of the adjacent bladder wall, findings could relate to cystitis. Appropriate follow-up recommended. 3. Suspected gallbladder sludge or faint stones. Some stranding within the pericholecystic fat, consider cholecystitis in the appropriate context. 4. Findings suggesting sequelae of recent surgery including small volume free fluid in the peritoneal space. COMMENTS: Please note that lack of IV contrast limits both the sensitivity, and the specificity, of the examination, particularly as regards focal lesions in the solid organs. Discharge Plan Discharge Condition: Stable Prescriptions: No Action aspirin 81 mg tablet,delayed release (DR/EC) 81 mg PO QAM (DME) Dexcom G6 Mercerizing Range Feeder Misc See Rx Instructions miscellaneous .MEDSUPPLY Qty: 1 3RF Rx Instructions: change every 90 days (DME) Dexcom G6 Transmitter Device See Rx Instructions .MEDSUPPLY Qty: 3 3RF Rx Instructions: change every 3 months (DME) Dexcom G6 Sensor Device See Rx Instructions .MEDSUPPLY Qty: 9 3RF Rx Instructions: change every 10 days furosemide 40 mg Tablet 40 mg PO BID acetaminophen 325 mg Tablet 650 mg PO Q6H PRN (Reason: Pain) albuterol sulfate 2.5 mg /3 mL (0.083 %) Solution For Nebulization 2.5 mg INHALATION BID albuterol sulfate 2.5 mg /3 mL (0.083 %) Solution For Nebulization 2.5 mg INHALATION Q6H PRN (Reason: Shortness Of Breath Or Wheezing) cetirizine 10 mg Tablet 10 mg PO DAILY cetirizine 5 mg Tablet 5 mg PO DAILY PRN (Reason: ALLERGIES) Senokot-S 8.6-50 mg Tablet 1 tab-cap PO BEDTIME PRN (Reason: Constipation) melatonin 3 mg Tablet 3 mg PO BEDTIME PRN (Reason: Sleep) carvedilol 3.125 mg Tablet 3.125 mg PO BID Rx Instructions: must administer with a meal/food Milk of Magnesia 400 mg/5 mL Suspension 30 ml PO DAILY PRN (Reason: Constipation) Dulcolax (bisacodyl) 10 mg Suppository 10 mg WI DAILY PRN (Reason: Constipation) Fleet Enema 19-7 gram/118 mL Enema 118 ml WI DAILY PRN (Reason: Constipation) digoxin 125 mcg (0.125 mg) Tablet 125 mcg PO DAILY Miralax 17 gram/dose Powder 17 g PO DAILY midodrine 10 mg Tablet 10 mg PO TID Rx Instructions: do not give last dose of day after 6PM or within 4 hrs of bedtime insulin lispro 100 unit/mL Insulin Pen See Rx Instructions .ROUTE .COMPLEX Rx Instructions: TAKE 15 UNITS SUBCUTANEOUSLY 3 TIMES DAILY ALONG WITH SLIDING ACALE NEEDED. insulin lispro 100 unit/mL Insulin Pen See Rx Instructions .ROUTE .COMPLEX Rx Instructions: TAKE 4 TIMES DAILY PER SLIDING SCALE: 151-200= 4 UNITS, 201-250= 8 UNITS, 251-300= 10 UNITS, 301-350= 12 UNITS, 351-400= 16 UNITS, BS OVER 400=16 UNITS AND CALL MD. ramelteon 8 mg Tablet 8 mg PO BEDTIME cholecalciferol (vitamin D3) 1,250 mcg (50,000 unit) Capsule 1,250 mcg PO Q7D Rx Instructions: ON SATURDAY insulin glargine 100 unit/mL (3 mL) Insulin Pen 60 unit SUBCUT DAILY Jardiance 10 mg Tablet 10 mg PO QAM metolazone 2.5 mg Tablet 2.5 mg PO DAILY levothyroxine 50 mcg Tablet 50 mcg PO DAILY gabapentin 300 mg Capsule 600 mg PO TID Referrals: Karla Ryan MD [Primary Care Provider] - Coding Level of Care Code ED Disability Manager for Keenang Turner
[2023-12-09] MEDS: sodium chloride 0.9% 1,000 ML 999 ML IV (10:08)
[2023-12-09 10:47] LABS: Basophils # 0.1 10^3/uL (0.0-0.1); Eosinophils # 0.3 10^3/uL (0.0-0.8); Eosinophils % 4.3 %; Hematocrit 49.5 % (37-53); Lymphocytes # 1.5 10^3/uL (0.8-4.8); Lymphocytes % 23.1 %; Mean Corpuscular HGB Conc 29.5 g/dL (30-55); Mean Corpuscular Volume 84.8 fl (82-101); Mean Platelet Volume 11.3 fL (7.4-10.4); Monocytes # 0.8 10^3/uL (0.2-0.9); Monocytes % 12.3 %; Neutrophils # 3.94 10^3/uL (1.8-7.7); Neutrophils % 59.2 %; Nucleated Red Blood Cells % 0 %; Platelet Count 321 10^3/cmm (157-399); Red Blood Count 5.84 10^6/uL (3.85-5.65); Red Cell Distribution Width 19.2 % (12.1-15.1); White Blood Count 6.67 10^3/uL (3.29-11.43)
[2023-12-09 10:59] LABS: INR 1.14 (0.8-1.2)
--- NOTE | 2023-12-09 11:04 | PC.PHAR ---
PT IS NOW IN [facility]. SEVERAL CHANGES TO MED LIST. THE FOLLOWING WERE DC'D: ALBUTEROL INHALER, ATORVASTATIN 80MG, CLOTRIMAZOLE 1%CR, DICLOFENACE SOD 1%GEL, FLUCONAZOLE 200MG, FLUTICASONE PROP-SAMLETEROL 250-50, IPRATRIPIUM-ALBUTEROL KARLA, KETOCONAZOLE 2% CR, LIDOCAIN 5% PATCH, LOSARTAN 50MG, METFORMIN 500MG, METHOCARBAMOL 500MG, METOPROLOL SUCCINAGE 25MG, NARCAN, NITRO 0.4 MG, NOVOLOG FLEXPEN, POTASSIUM CHL. 20 MEQ, SPIRIVA RESPIMAT 2.5, SPIRONOLACTONE 25 MG, TRAMADOL 50MG, AND ZEASORB AF 2%PWD.
[2023-12-09 11:06] LABS: Lactic Sepsis W/Reflex 3.4 mmol/L (0.5-2.2)
[2023-12-09 11:21] LABS: Glucose Urine UA 2+ (Normal); Protein Urine 1+ (Negative); Specific Gravity, Urine 1.005 (1.005-1.030); Urine Appearance Hazy (CLEAR); Urine Color Yellow (Yellow); pH Urine 7 (5-7)
[2023-12-09 11:22] LABS: Add Urine Microscopic? YES; Bilirubin Urine Neg (Negative); Blood Urine 2+ (Negative); Ketones Urine Negative (Negative); Leukocyte Esterase Urine 2+ (Negative); Nitrate Urine Negative (Negative); Urobilinogen Urine Norm (Negative)
[2023-12-09 11:24] LABS: Add Urine Culture? Yes; Bacteria Urine 1+ /hpf; Squamous Epithelial Cell Urine 0-4 /hpf (0-5); WBC Urine TOO NUMEROUS TO CNT /hpf (0-5)
[2023-12-09 11:25] LABS: Alanine Aminotransferase 18 U/L (0-41); Albumin Level 3.8 g/dL (3.5-5.2); Alkaline Phosphatase 90 U/L (40-130); Anion Gap 20.1 (5-19); Aspartate Amino Transferase 21 U/L (0-40); Blood Urea Nitrogen 76 mg/dL (6-20); Calcium 9.6 mg/dL (8.5-10.5); Carbon Dioxide 31 mmol/L (22-29); Chloride 88 mmol/L (98-107); Globulin 3.8 g/dL (1.3-4.6); Glomerular Filtration Rate 30.8 mL/min (90-130); Glucose 246 mg/dL (65-115); NT Pro B Type Natriuretic Pept 6238 pg/mL (0-125); Osmolality Calculated 313 mOsm/kg (285-295); Potassium 3.1 mmol/L (3.5-5.1); Sodium 136 mmol/L (136-145); Thyroid Stimulating Hormone 27.71 uIU/mL (0.27-4.20); Total Bilirubin 0.5 mg/dL (0.15-1.2); Total Protein 7.6 g/dL (6.6-8.7)
--- NOTE | 2023-12-09 11:29 | CTR_ITS ---
PROCEDURE INFORMATION: Exam: CT Abdomen And Pelvis Without Contrast Exam date and time: 12/09/2023 12:16 PM Age: 58 years old Clinical indication: Other: Hematuria TECHNIQUE: Imaging protocol: Computed tomography of the abdomen and pelvis without contrast. Radiation optimization: All CT scans at this facility use at least one of these dose optimization techniques: automated exposure control; mA and/or kV adjustment per patient size (includes targeted exams where dose is matched to clinical indication); or iterative reconstruction. COMPARISON: CT abdomen wo/w con [id number] 12/21/2021 2:38 PM RADIATION DOSE METRICS: Total DLP (mGy-cm): 1348.99 FINDINGS: Lungs: Imaged portions of the lung bases demonstrate minimal scarring and/or atelectasis. Liver: An approximately 1.7 x 1 cm area of decreased attenuation is present in the lateral segment, thought to represent portal vein and periportal fat. Gallbladder and bile ducts: Gallbladder demonstrates increased attenuation dependently suggesting sludge or stones. Gallbladder is mildly distended. There is slight stranding in the pericholecystic fat. Pancreas: Unremarkable. Spleen: Unremarkable. Adrenal glands: Not enlarged. Kidneys and ureters: No hydronephrosis of either kidney. There are several nonobstructive intrarenal calculi on the left. No urinary tract calculus identified. Stomach and bowel: No bowel obstruction or definite bowel wall thickening identified. Appendix: The appendix is not definitely identified, but there are no pericecal inflammatory changes identified to specifically suggest acute appendicitis. Intraperitoneal space: A small amount of free fluid present in the perihepatic and perisplenic space. Small amount of free fluid in the lower left pelvis. Vasculature: atherosclerosis present major vasculature without abdominal aortic aneurysm. Lymph nodes: Nodes immediately superior to the pancreatic head appear stable. Urinary bladder: There is slight wall thickening of the anterior wall of the urinary bladder and stranding of the adjacent fat. Reproductive: The prostate is not enlarged. Bones/joints: Skeletal windows demonstrate moderate multilevel degenerative changes. This is particularly prominent at the L4-L5 level with facet arthropathy disc space narrowing and vacuum disc. There is also disc space narrowing at L5-S1. Soft tissues: There is prominent atrophy of the rectus musculature bilaterally. Stranding is present within the anterior abdominal wall fat, and there is a 2.5 x 1 cm density in the subcu fat of the right mid abdominal wall with similar subcutaneous densities on the left,, findings suggesting sequelae of recent surgery. Stable peripherally calcified focus in the right pelvic fat likely chronic fat necrosis. CT/CT kidney stone [id number] IMPRESSION: 1. There are 3 nonobstructive left intrarenal calculi. No ureteral calculus or acute obstructive uropathy is identified. Follow-up with contrast CT urogram should be considered, when clinically appropriate, given history of hematuria. 2. Stranding within the fat immediately anterior to the urinary bladder with thickening of the adjacent bladder wall, findings could relate to cystitis. Appropriate follow-up recommended. 3. Suspected gallbladder sludge or faint stones. Some stranding within the pericholecystic fat, consider cholecystitis in the appropriate context. 4. Findings suggesting sequelae of recent surgery including small volume free fluid in the peritoneal space. COMMENTS: Please note that lack of IV contrast limits both the sensitivity, and the specificity, of the examination, particularly as regards focal lesions in the solid organs.
[2023-12-09] MEDS: cefTRIAXone 1,000 MG in sodium chloride 0.9% (plus) 50 ML 100 MG IV (12:08)
[2023-12-09 12:30] LABS: Reflex Lactate Order REFLEX LACTIC ORDERD
[2023-12-09 13:10] LABS: Lactic Acid level (Lactate) 1.8 mmol/L (0.5-2.2)
--- NOTE | 2023-12-09 15:21 | P.HP_ITS ---
Providers/Chief Complaint 2 Admitting Physician: Jacqui Mesa MD Primary Care Provider: Karla Ryan MD Chief Complaint: General Weakness History of Present Illness Param Tejada is a 58 year old male who presented to the emergency room via EMS from [facility] today with complaint of a low heart rate and not feeling well. According to Mr. Tejada he has not felt well for about 4 to 5 days now. He has had the shakes quite a bit and felt a lot weaker than usual. He has been dropping things with his hands. He has had some nausea but no vomiting. Not much appetite. No report of any fevers to speak of. He let nursing staff at [facility] know that he was not feeling well. They checked his vital signs and reported that his heart rate was very low and his blood pressure was low prompting the visit to the ER. In addition, laboratory studies collected last week showed increase in BUN and creatinine to 76/2.19 from 73/1.86 earlier in November. It appears only recent medication changes were to insulin dosages. Mr. Tejada does have a known history of coronary artery disease and ischemic cardiomyopathy as well as an ICD, insulin-dependent diabetes mellitus, I COPD and chronic hypercapnic respiratory failure, sleep apnea intolerant of home CPAP, among other diagnoses as outlined below. He was hospitalized at the end of July 2023 into August of this year with severe COVID-19 and staph pneumonia. He had multiorgan failure requiring intubation, transient CRRT, and was ultimately transferred to long-term acute care at [facility] in [place]. From [facility] he was transferred to [facility] where he was hospitalized for an additional month or so prior to going back to [facility] I have requested records from both facilities to get more details of his condition upon discharge. He was dispositioned to [facility] at the beginning of November. This is the first time he has required a visit to the emergency room since arriving back in this area. He says that he was told by multiple people that he was probably going to during his prolonged illness. He says he follows with cardiology. Review of records here shows that he has seen cardiology at our facility in the past but he indicates he has been being seen by those at [facility]. 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 Review of records here indicate that midodrine was added to his medication regimen in August and looks to still be on there. He has both systolic and diastolic dysfunction with last ejection fraction estimated around 36%. He is chronically on Lasix as well as metolazone in addition to being on carvedilol and digoxin. Primary care provider is [facility]. [facility]. History is obtained from him and review of available information sent from [facility]. I also spoke with nursing staff at [facility] who shared a similar story to that obtained from Mr. Tejada. On arrival to the emergency room patient's heart rate was in the 60s blood pressure in the 100s over 60s, he had an initially recorded low temperature. Workup revealed worsening renal function with BUN and creatinine at 76/2.2. Potassium was also low at 3.1. Patient had a mild elevation in anion gap at 20.1 and was noted to have an elevated initial lactic acid at 3.4. White count and LFTs were normal. He received some IV fluids and repeat lactic acid was down to 1.8. Urinalysis was checked suggesting too numerous to count white blood cells with 0-4 epithelial cells, 1+ bacteria and 2+ leukocyte esterase along with 2+ blood but no reported red blood cells. Given comorbid conditions, extent of illness earlier this year and presentation request was made for admission for further evaluation and treatment. Review of Systems 2 Const: Reports: fatigue and malaise; Denies: fever(s) Eyes: Reports: blurry vision ENMT: Denies: throat pain or nasal congestion Card: Reports: swelling of feet/ankles, lightheadedness and other (breathing not worse than baseline but he has not felt well); Denies: chest pain, palpitations, irregular heart rhythm, syncope or orthopnea Resp: Reports: dyspnea (not worse than recent baseline), productive cough and non-productive cough GI: Reports: nausea; Denies: abdominal pain, vomiting, diarrhea or change in bowel habits : Reports: dysuria and oliguria; Denies: flank pain or hematuria Musc: Reports: other (general aches, no place really hurts more than others, dropping things more) Skin/Breast: Denies: rash or sores Neuro: Reports: weakness in extremities (generalized rather than focal but both hands are worse than elsewhere) and involuntary movements (shaking a lot, cant hold things as well, new last few days) Endo: Reports: tired all the time Ruben/Lymph: Reports: easy bruising; Denies: easy bleeding Medications/Allergies Home Medications Medication Instructions Recorded Confirmed Last Taken Type aspirin 81 mg tablet,delayed 81 mg PO QAM 11/29/20 12/09/23 12/09/23 History release blood-glucose meter,continuous #1 ea 08/23/22 12/09/23 Unknown Rx (Dexcom G6 Inspector Rag Sorting) blood-glucose transmitter (Dexcom #3 ea 08/23/22 12/09/23 Unknown Rx G6 Transmitter device) blood-glucose sensor (Dexcom G6 #9 ea 04/19/23 12/09/23 Unknown Rx Sensor device) gabapentin 300 mg capsule 600 mg PO TID Pain 08/13/23 12/09/23 12/09/23 History levothyroxine 50 mcg tablet 50 mcg PO DAILY 08/13/23 12/09/23 12/09/23 History metolazone 2.5 mg tablet 2.5 mg PO DAILY 08/13/23 12/09/23 12/09/23 History acetaminophen 325 mg tablet 650 mg PO Q6H PRN Pain 12/09/23 12/09/23 12/04/23 History albuterol sulfate 2.5 mg/3 mL 2.5 mg inhalation BID 12/09/23 12/09/23 12/09/23 History (0.083 %) solution for nebulization albuterol sulfate 2.5 mg/3 mL 2.5 mg inhalation Q6H PRN 12/09/23 12/09/23 12/07/23 History (0.083 %) solution for nebulization Shortness Of Breath Or Wheezing bisacodyl 10 mg rectal suppository 10 mg [place] DAILY PRN Constipation 12/09/23 12/09/23 Unknown History (Dulcolax (bisacodyl)) carvedilol 3.125 mg tablet 3.125 mg PO BID 12/09/23 12/09/23 12/09/23 History cetirizine 10 mg tablet 10 mg PO DAILY 12/09/23 12/09/23 12/09/23 History cetirizine 5 mg tablet 5 mg PO DAILY PRN ALLERGIES 12/09/23 12/09/23 11/18/23 History cholecalciferol (vitamin D3) 1,250 1,250 mcg PO Q7D 12/09/23 12/09/23 12/03/23 History mcg (50,000 unit) capsule digoxin 125 mcg (0.125 mg) tablet 125 mcg PO DAILY 12/09/23 12/09/23 12/09/23 History empagliflozin 10 mg tablet 10 mg PO QAM 12/09/23 12/09/23 12/09/23 History (Jardiance) furosemide 40 mg tablet 40 mg PO BID 12/09/23 12/09/23 12/09/23 History insulin glargine 100 unit/mL (3 60 unit SUBCUT DAILY 12/09/23 12/09/23 12/08/23 History mL) subcutaneous pen insulin lispro 100 unit/mL See Rx Instructions .Route .COMPLEX 12/09/23 12/09/23 12/06/23 History subcutaneous pen insulin lispro 100 unit/mL See Rx Instructions .Route .COMPLEX 12/09/23 12/09/23 12/09/23 History subcutaneous pen magnesium hydroxide 400 mg/5 mL 30 ml PO DAILY PRN Constipation 12/09/23 12/09/23 Unknown History oral suspension (Milk of Magnesia) melatonin 3 mg tablet 3 mg PO BEDTIME PRN Sleep 12/09/23 12/09/23 11/25/23 History midodrine 10 mg tablet 10 mg PO TID 12/09/23 12/09/23 12/09/23 History polyethylene glycol 3350 17 17 g PO DAILY 12/09/23 12/09/23 12/09/23 History gram/dose oral powder (Miralax) ramelteon 8 mg tablet 8 mg PO BEDTIME INSOMNIA 12/09/23 12/09/23 12/08/23 History sennosides 8.6 mg-docusate sodium 1 tab-cap PO BEDTIME PRN 12/09/23 12/09/23 Unknown History 50 mg tablet (Senokot-S) Constipation sodium phosphates 19 gram-7 118 ml [place] DAILY PRN Constipation 12/09/23 12/09/23 Unknown History gram/118 mL enema (Fleet Enema) Allergies Allergy/AdvReac Type Severity Reaction Status Date / Time Sulfa (Sulfonamide Allergy Severe ALGY-Anaphy Verified 08/11/23 11:31 Antibiotics) laxis PFSH Acute 2 PFSH: Medical History (Updated 12/09/23 @ 19:14 by Jacqui Mesa MD) History of transesophageal echocardiography (NANCY) August 2023 Multiorgan failure 07/2023 - 08/2023 when admitted with COVID 19, intubated, temporary dialysis with CRRT for CAPRI/ARF and fluid overload, transient afib, encephalopathy, shock liver, septic shock, required TPN and transfer to LTAC facility History of renal dialysis temporary dialysis in August 2023 Chronic hypercapnic respiratory failure Hypothyroidism Chronic kidney disease Sustained ventricular tachycardia 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 Pneumonia due to COVID-19 virus August 2023, severe treated with dexamethasone and remdesivir Staphylococcus aureus pneumonia August 2023 when had covid, also had staph lundgensis and staph epidermidis in cultures > received prolonged course of antibiotics with cefazolin via PICC per ID recommendations which completed in Sep 2023 Renal calculus history of left renal calculi and at least 2 spontaneous passage Personal history of nicotine dependence CHF (congestive heart failure) systolic and diastolic dysfunction CAD (coronary artery disease) 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 2 diabetes mellitus Insulin dependent diabetes mellitus ICD (implantable cardioverter-defibrillator) in place single chamber medtronic ICD programmed with a lower rate at 40 bpm per report 08/20/2023 Morbid obesity Obstructive sleep apnea Intolerant of home bipap COPD (chronic obstructive pulmonary disease) Ischemic cardiomyopathy Technically limited echo in 08/2023 with diffuse hypokinesis and EF 36% Hyperlipidemia Hypertension ST elevation myocardial infarction (STEMI) of inferior wall Surgical History (Updated 12/09/23 @ 18:20 by Jacqui Mesa MD) History of cardiac catheterization ~06/2023 with no intervention performed per cardiology consult notes in 08/2023 History of appendectomy History of hernia surgery S/P knee replacement History of left knee replacement History of cardiac defibrillator placement History of coronary artery stent placement 2016 hx of CAD with inferior wall [place] s/p RCA stent, LAD stent Family History Father No problems noted. Mother No problems noted. Denies family history of CAD (coronary artery disease) Social History Smoking and tobacco/nicotine status: former use of tobacco/nicotine Alcohol intake: never Substance/Drug Use: never Marital status: Single Current occupational status: disabled Do you think of yourself as: Straight/Heterosexual Vitals/I&O/Wt Last Vital Signs Temp 96.4 F L 12/09/23 09:48 Pulse 72 12/09/23 13:30 Resp 16 12/09/23 11:13 BP 106/55 12/09/23 13:30 Pulse Ox 96 12/09/23 13:30 O2 Del Method Room Air 12/09/23 12:00 Weight last 48 hrs Weight 112.037 kg Physical Exam 2 Narrative: Patient is a little slow to answer some questions but alert and oriented to person, place and situation. He has a scar on his left forehead/parietal area but otherwise appears normocephalic. Pupils are sluggish but equally reactive bilaterally. Conjunctiva are slightly injected. Oropharynx with dry mucous membranes. Neck is large but supple. Lungs are clear to auscultation anteriorly. Decreased a bit at both bases but no rales, rhonchi or wheezes noted. Cardiovascular exam reveals a regular rhythm. No elevation in JVD noted. Abdomen is soft, positive bowel sounds, nontender. No flank tenderness. Extremities trace to 1+ ankle edema. Some bruising noted to the right upper thigh. Feet are cool to touch but capillary refill is noted bilaterally less than 3 seconds. Patient does have tremors of both hands right more prominent than the left and intermittent jerking movements. He dropped his phone during my evaluation and had difficulty gripping it when handed to him. Thenar wasting is noted bilaterally. Handgrip is similar bilaterally. He moves both feet equally. Given current symptoms I did not attempt to get him up out of bed at this time. Data 12/09/23 10:28 12/09/23 10:28 Other Labs: Radiology Impressions Chest X-Ray 12/09/23 09:45 IMPRESSION: Much improved pulmonary interstitial prominence likely diminished edema. Head CT 12/09/23 09:50 IMPRESSION: 1. No acute intracranial hemorrhage or edema. 2. Mild cerebral atrophy and mild small vessel ischemic disease. 3. Complete resolution of acute paranasal sinusitis described on 08/19/2023. Abdomen/Pelvis CT 12/09/23 11:29 IMPRESSION: 1. There are 3 nonobstructive left intrarenal calculi. No ureteral calculus or acute obstructive uropathy is identified. Follow-up with contrast CT urogram should be considered, when clinically appropriate, given history of hematuria. 2. Stranding within the fat immediately anterior to the urinary bladder with thickening of the adjacent bladder wall, findings could relate to cystitis. Appropriate follow-up recommended. 3. Suspected gallbladder sludge or faint stones. Some stranding within the pericholecystic fat, consider cholecystitis in the appropriate context. 4. Findings suggesting sequelae of recent surgery including small volume free fluid in the peritoneal space. COMMENTS: Please note that lack of IV contrast limits both the sensitivity, and the specificity, of the examination, particularly as regards focal lesions in the solid organs. Laboratory Results WBC 6.67 10^3/uL (3.29-11.43) 12/09/23 10:28 RBC 5.84 10^6/uL (3.85-5.65) H 12/09/23 10:28 Hgb 14.60 g/dL (11.27-16.99) 12/09/23 10:28 Hct 49.5 % (37-53) 12/09/23 10:28 MCV 84.8 fl (82-101) 12/09/23 10:28 MCH 25.0 pg (27-33) L 12/09/23 10:28 MCHC 29.5 g/dL (30-55) L 12/09/23 10:28 RDW 19.2 % (12.1-15.1) H 12/09/23 10:28 Plt Count 321 10^3/cmm (157-399) 12/09/23 10:28 MPV 11.3 fL (7.4-10.4) H 12/09/23 10:28 Neut % (Auto) 59.2 % 12/09/23 10:28 Lymph % (Auto) 23.1 % 12/09/23 10:28 [place] % (Auto) 12.3 % 12/09/23 10:28 Eos % (Auto) 4.3 % 12/09/23 10:28 Baso % (Auto) 1.0 % 12/09/23 10:28 Neut # (Auto) 3.94 10^3/uL (1.8-7.7) 12/09/23 10:28 Lymph # (Auto) 1.5 10^3/uL (0.8-4.8) 12/09/23 10:28 [place] # (Auto) 0.8 10^3/uL (0.2-0.9) 12/09/23 10:28 Eos # (Auto) 0.3 10^3/uL (0.0-0.8) 12/09/23 10:28 Baso # (Auto) 0.1 10^3/uL (0.0-0.1) 12/09/23 10:28 Nucleated RBC % (auto) 0 % 12/09/23 10:28 Nucleated RBCs # 0.0 /100WBC 12/09/23 10:28 PT 15.00 SECONDS (12.1-14.9) H 12/09/23 10:28 INR 1.14 (0.8-1.2) 12/09/23 10:28 Sodium 136 mmol/L (136-145) 12/09/23 10:28 Potassium 3.1 mmol/L (3.5-5.1) L 12/09/23 10:28 Chloride 88 mmol/L (98-107) L 12/09/23 10:28 Carbon Dioxide 31 mmol/L (22-29) H 12/09/23 10:28 Anion Gap 20.1 (5-19) H 12/09/23 10:28 BUN 76 mg/dL (6-20) H 12/09/23 10:28 Creatinine 2.2 mg/dL (0.7-1.2) H 12/09/23 10:28 GFR Calculation 30.8 mL/min (90-130) L 12/09/23 10:28 Glucose 246 mg/dL (65-115) H 12/09/23 10:28 Calculated Osmolality 313 mOsm/kg (285-295) H 12/09/23 10:28 Lactic Acid 3.4 mmol/L (0.5-2.2) H 12/09/23 10:33 Lactic Acid (Sepsis) 1.8 mmol/L (0.5-2.2) 12/09/23 12:43 Calcium 9.6 mg/dL (8.5-10.5) 12/09/23 10:28 Magnesium 3.0 mg/dL (1.7-2.3) H 12/09/23 10:28 Total Bilirubin 0.5 mg/dL (0.15-1.2) 12/09/23 10:28 AST 21 U/L (0-40) 12/09/23 10:28 ALT 18 U/L (0-41) 12/09/23 10:28 Alkaline Phosphatase 90 U/L (40-130) 12/09/23 10:28 NT-Pro-B Natriuret Pep 6238 pg/mL (0-125) H 12/09/23 10:28 Total Protein 7.6 g/dL (6.6-8.7) 12/09/23 10:28 Albumin 3.8 g/dL (3.5-5.2) 12/09/23 10:28 Globulin 3.8 g/dL (1.3-4.6) 12/09/23 10:28 TSH 27.71 uIU/mL (0.27-4.20) H 12/09/23 10:28 Urine Color Yellow (Yellow) 12/09/23 10:53 Urine Appearance Hazy (CLEAR) A 12/09/23 10:53 Urine pH 7 (5-7) 12/09/23 10:53 Ur Specific [place] 1.005 (1.005-1.030) 12/09/23 10:53 Urine Protein 1+ (Negative) H 12/09/23 10:53 Urine Glucose (UA) 2+ (Normal) H 12/09/23 10:53 Urine Ketones Negative (Negative) 12/09/23 10:53 Urine Blood 2+ (Negative) H 12/09/23 10:53 Urine Nitrate Negative (Negative) 12/09/23 10:53 Urine Bilirubin Neg (Negative) 12/09/23 10:53 Urine Urobilinogen Norm mg/dL (Negative) 12/09/23 10:53 Ur Leukocyte Esterase 2+ (Negative) H 12/09/23 10:53 Urine RBC None /hpf (0-2) 12/09/23 10:53 Urine WBC Too numerous to cnt /hpf (0-5) H 12/09/23 10:53 Ur Squamous Epith Cells 0-4 /hpf (0-5) H 12/09/23 10:53 Amorphous Sediment Not Reportable 12/09/23 10:53 Urine Bacteria 1+ /hpf (NONE) H 12/09/23 10:53 Other data: Twelve-lead EKG with an electronically ventricular paced rhythm at 60 A&P Assessment and plan (1) CAPRI (acute kidney injury): On top of chronic kidney disease stage II-III. When patient was discharged in August of this year, creatinine was 1.3. Last week labs done at [facility] showed creatinine of 1.86 and today creatinine is 2.2. Patient is on Lasix as well as metolazone. It does not look like he has had any dosage changes since arriving at [facility] but from discussion with Mr. Tejada it sounds like medications may have been changed either at [facility] or [facility]. He reports decreased urine output lately and progressive decline over the past 5 to 7 days. Currently with slightly low potassium and high magnesium along with abnormal urinalysis. Urine shows 2+ blood without RBCs noted. Has a history of rhabdomyolysis in August of this year. (2) Digoxin toxicity: Initial encounter, accidental toxicity related to worsening renal function. Has had general malaise, dizziness, nausea, weakness. Currently potassium levels are not high. Reported to have had significant bradycardia at outside facility which has not been seen here thus far. Also initially hypotensive at outside facility which may be related to diuresis and other medications that he had taken this morning versus possibility of infectious process. (3) Lactic acidosis: Lactic acid elevation in a patient with what appears to be acute kidney injury on top of chronic kidney disease. Received IV fluids with normalization of lactic acid. Has abnormal urinalysis suggesting UTI and a report of low blood pressures and low heart rate at an outside facility but has not demonstrated other signs of sepsis here. (4) UTI (urinary tract infection): Acute cystitis present on admission without hematuria. Has a known history of left renal calculi. CT without evidence of obstructing stones though there was some stranding within the fat immediately anterior to the bladder and thickening of the adjacent bladder wall noted. Patient has a history of multidrug- resistant organisms but review of prior pathology here shows that these involve pulmonary or blood specimens rather than urinary specimens in the past. Mr. Tejada does describe some dysuria. White count is normal currently. Could be a early infectious process. Not presently meeting sepsis criteria based on available information here despite the elevation in lactic acid. (5) Ischemic cardiomyopathy: Has both systolic and diastolic dysfunction. Last echocardiogram showed ejection fraction of 36% but was a very difficult study. Baseline BNP collected in the emergency room was elevated at 6238 however values in August of this year look to have been 9-24,000. Chest x-ray fairly clear. With decreased urine output, baseline diuretic dosing, hypochloremic and hypokalemic labs, limited edema on examination and dry mucosa patient clinically appears a little over diuresed however urine shows low specific gravity suggesting otherwise. Chronically on Lasix, metolazone and digoxin. Has a history of ventricular tachycardia and ICD. (6) CAD (coronary artery disease): Has had previous stent placement back in 2015. Last cardiac catheterization was in the fall 2022 with no intervention necessitated. This information was obtained from review of cardiology consultations in August. Patient is chronically on beta-blockade, aspirin therapy. Reviewing records from August shows that he was on Brilinta though is no longer on this. (7) Hypertension: Chronically on carvedilol, furosemide, metolazone. He is also on midodrine chronically that was started in August of this year to allow treatment with other medications from what I have gathered on review of records. Current vitals within an appropriate range for Mr. Tejada. Qualifiers: Hypertension type: essential hypertension Qualified Code(s): I10 - Essential (primary) hypertension (8) Diabetes mellitus, type II, insulin dependent: Chronically on insulin therapy along with Jardiance. Has associated peripheral neuropathy for which he is on gabapentin along with chronic kidney disease and hypertension. (9) Hypothyroidism: Has been on levothyroxine at 50 mcg at least since August of this year as was confirmed upon admission to the hospital at that time. TSH has been significantly elevated when he was here and acutely ill and is again elevated today even more than back then. No interval adjustments in medications or lab values available for review. Some of his symptoms could potentially be related. (10) ICD (implantable cardioverter-defibrillator) in place: In place for some time. Most recent check from August of this year indicates that it is a single-chamber ICD programmed VVI lower rate at 40 bpm. (11) COPD (chronic obstructive pulmonary disease): Chronic diagnosis, not currently acute, has scheduled and as needed breathing treatments (12) Obstructive sleep apnea: Chronic diagnosis, not tolerant of home BiPAP therapy as has been recommended in the past Plan Insomnia treated with melatonin and ramelteon chronically Inpatient admission Low rate of IV fluids overnight Hold home Lasix and metolazone Hold digoxin Recheck digoxin level in the morning serially for couple of days Monitor for indications to administer Digibind Telemetry monitoring primarily for bradycardia or tacky arrhythmias given electrolyte abnormalities and report from outside facility has a known paced rhythm ICD check during hospital stay Records have been requested from [facility] as well as [facility] to clarify history around changes to cardiac medications that have occurred since patient was last here including stoppage of brilinta, addition of digoxin, stoppage of aldactone, increase in furosemide and metolazone without potassium; midodrine was added in August of this year Strict I's and O's and daily weights along with monitoring of overall respiratory status Will continue Rocephin currently for abnormal urinalysis. Patient has a history of multidrug-resistant organisms in the past primarily pulmonary in nature. I suspect a component of his abnormal urinalysis may be related to his worsening renal dysfunction though he does describe some dysuria and has left renal calculi, nonobstructing noted. White count is currently normal and not meeting other criteria for sepsis but will need to monitor for indications to escalate therapy Check troponin Continue home carvedilol and aspirin Continue home midodrine Monitor blood pressures and respiratory status for indications to resume diuretic therapy Will decrease usual long-acting insulin dosage as well as scheduled lispro doses; add low-dose sliding scale as needed Check free T4 and free T3 Increasing levothyroxine to 75 mcg daily, will need new script at [facility] Will need repeat TSH in 4-6 weeks Breathing treatments as needed Continue home gabapentin but at a lower dose until renal function improves Monitor serial labs for renal function Will check CK level, uric acid as well Consult case management to assist with discharge planning as patient was originally scheduled to be discharged from [facility] tomorrow. He lives alone. VTE prophylaxis: Subcu heparin GI Prophylaxis: PPI Antibiotics: Rocephin started on 12/09/2023 for coverage of potential urinary source of infection Pending studies: Repeat digoxin level, free T3 and free T4, repeat lactic acid level, CK level and uric acid level, troponin, urine culture results Telemetry: Ordered secondary to digoxin toxicity [place]: not currently indicated Line(s): peripheral IVs, with 2 IVs requested Disposition plan: Anticipate disposition either back to [facility] for close monitoring for some additional days along with laboratory studies or arrangement for home health care to follow closely in the outpatient setting. I am not sure if there was any workup already in progress to get patient set up for home health care upon his planned discharge from [place] that was scheduled for December 10, 2023. Patient is followed regularly at the MD clinic here in [place]. Code Status: Full Code Supportive care otherwise Findings, concerns and plans were discussed with patient and he was given an opportunity to ask questions Attestations 2 Medical Necessity Statement*: Anticipated stay greater than two midnights nonspecific symptoms found to have evidence of acute kidney injury along with digoxin toxicity. He has an abnormal urinalysis suggestive of UTI and comorbid conditions to note of ischemic cardiomyopathy. Currently has several medications being held, is receiving fluids which requires close monitoring for development of respiratory symptoms and is getting serial laboratory studies to monitor current toxicities and response to treatment as outlined above. In addition he is receiving IV antibiotics. Coding Level of Care Code Acute Code for g Fwd Diagnoses CAPRI (acute kidney injury) N17.9 Digoxin toxicity T46.0X1A Lactic acidosis E87.20 UTI (urinary tract infection) N39.0 Ischemic cardiomyopathy I25.5 Coronary artery disease involving [place] coronary artery of [place] heart without angina pectoris I25.10 Essential hypertension I10 Hypertension type: essential hypertension Diabetes mellitus, type II, insulin dependent E11.9; Z79.4 Hypothyroidism E03.9 ICD (implantable cardioverter-defibrillator) in place Z95.810 COPD (chronic obstructive pulmonary disease) J44.9 Obstructive sleep apnea G47.33
[2023-12-09 16:58] LABS: Digoxin 1.7 ng/mL (0.6-1.2)
[2023-12-09 17:00] LABS: Lipase 14 U/L (13-60)
[2023-12-09 17:15] LABS: Glucose Point of Care 166 mg/dL (70-110)
--- NOTE | 2023-12-09 17:17 | PC.NURSE ---
patient wanted to stand up to urinate in the bedside commode. Refuses to use urinal. Refused to let me stand beside him to ensure he would not fall after explaining he is unsteady and he is a fall risk.
[2023-12-09] MEDS: sodium chloride 0.9% 1,000 ML 50 ML IV (18:21)
[2023-12-09] MEDS: heparin 5,000 unit/mL INJ 1 mL 5000 UNIT SUBCUT (18:22)
[2023-12-09] MEDS: insulin lispro 100 unit/1 mL SUBCUT ×2 (18:22→22:04)
[2023-12-09] MEDS: carvedilol 3.125 mg Tablet PO (18:22)
[2023-12-09 21:48] LABS: Glucose Point of Care 228 mg/dL (70-110)
[2023-12-09] MEDS: sennosides-docusate Tablet 1 TAB PO (22:03)
[2023-12-09] MEDS: midodrine 5 mg TABLET 10 MG PO (22:03)
[2023-12-09] MEDS: gabapentin 300 mg Capsule PO (22:03)
[2023-12-09] MEDS: acetaminophen 325 mg Tablet 650 MG PO (22:07)
[2023-12-10] VITALS (15 sets, daily range): BP systolic 95–129; BP diastolic 69–85; PULSE 59–69; RESP 15–20; TEMP 36.3–36.4; O2SAT 93–98
--- NOTE | 2023-12-10 01:54 | PC.NURSE ---
Patient frequently up to bedside commode. Patient is urinating small amounts each time or none at all. Patient refusing to use urinal. Patient often gets urine on floor. Bladder scans have shown 85 ml and 162 ml.
[2023-12-10] MEDS: phenazopyridine 100 mg Tablet 200 MG PO (04:30)
[2023-12-10] MEDS: heparin 5,000 unit/mL INJ 1 mL 5000 UNIT SUBCUT ×2 (04:30→18:22)
[2023-12-10] MEDS: aspirin 81 mg EC Tablet PO (04:30)
[2023-12-10 05:56] LABS: Basophils # 0.1 10^3/uL (0.0-0.1); Basophils % 1.2 %; Eosinophils # 0.5 10^3/uL (0.0-0.8); Eosinophils % 6.1 %; Hematocrit 48.3 % (37-53); Lymphocytes # 1.7 10^3/uL (0.8-4.8); Lymphocytes % 23.4 %; Mean Corpuscular HGB Conc 30.2 g/dL (30-55); Mean Corpuscular Hemoglobin 25.4 pg (27-33); Mean Corpuscular Volume 84.1 fl (82-101); Mean Platelet Volume 10.3 fL (7.4-10.4); Monocytes % 12.8 %; Neutrophils # 4.16 10^3/uL (1.8-7.7); Neutrophils % 56.2 %; Nucleated Red Blood Cells % 0 %; Platelet Count 359 10^3/cmm (157-399); Red Blood Count 5.74 10^6/uL (3.85-5.65); Red Cell Distribution Width 19.5 % (12.1-15.1)
[2023-12-10 06:15] LABS: Lactic Sepsis W/Reflex 1.9 mmol/L (0.5-2.2)
[2023-12-10 06:16] LABS: Anion Gap 17.7 (5-19); Blood Urea Nitrogen 72 mg/dL (6-20); Calcium 9.2 mg/dL (8.5-10.5); Carbon Dioxide 30 mmol/L (22-29); Chloride 91 mmol/L (98-107); Creatinine Clr Calc Pharmacy 48.6846; Glomerular Filtration Rate 36.5 mL/min (90-130); Glucose 103 mg/dL (65-115); Osmolality Calculated 303 mOsm/kg (285-295); Phosphorus 4.6 mg/dL (2.5-4.5); Sodium 136 mmol/L (136-145)
[2023-12-10 06:19] LABS: Digoxin 2.1 ng/mL (0.6-1.2); Potassium 2.7 mmol/L (3.5-5.1)
[2023-12-10 06:20] LABS: Troponin T (5th) Once 237 ng/L (0-15)
[2023-12-10 06:21] LABS: Creatine Phosphokinase 119 U/L (39-308); Free T4 Free Thyroxine 0.96 ng/dL (0.82-1.77); T3 Free 2.3 PG/ML (2.0-4.4); Uric Acid 14.2 mg/dL (3.4-7.0)
[2023-12-10] MEDS: potassium chloride ER 20 mEq Tablet 40 MEQ PO (06:34)
[2023-12-10 06:38] LABS: Glucose Point of Care 126 mg/dL (70-110)
[2023-12-10] MEDS: midodrine 5 mg TABLET 10 MG PO ×3 (09:21→20:58)
[2023-12-10] MEDS: carvedilol 3.125 mg Tablet PO ×2 (09:21→18:22)
[2023-12-10] MEDS: pantoprazole DR 40 mg Tablet PO (09:21)
[2023-12-10] MEDS: levothyroxine 50 mcg Tablet 75 MCG PO (09:21)
[2023-12-10] MEDS: polyethylene glycol 3350 Pkt 17 gm PO (09:21)
[2023-12-10] MEDS: gabapentin 300 mg Capsule PO ×3 (09:21→20:58)
--- NOTE | 2023-12-10 09:29 | PC.CHAP ---
Pastoral Care Encounter/Spiritual Assessment Type of Contact [] Declined director of audiology visit [] Patient/Family/Request visit [] Outpatient visit [] Follow-up visit [] Physician referral [] Code/Alert [x] Routine visit [] Staff referral [] Actively dying [] Patient sleeping [] Family support [] [] Out of room [] Palliative care [] [] Receiving care in room [] Pre-surgical visit [] Trauma [] Long length of stay [] ICU visit [] Other: Relational/Emotional Strength [x] Patient feels connected with others/family/visitors/staff [] Distress [] Loneliness/isolation [] Abandonment Spirituality of Patient [x] Person of Lo [] Attends Faith of their Lo [x] Believes in Prayer [] Reads Bible or Yarsani materials [] There are Spiritual issues to be addressed Band Leader Interventions [x] Prayer [x] Active listening [] Non-anxious presence [x] Spiritual/emotional support [] Crisis/trauma care [] Spiritual counseling [] Bereavement support [] Provided bereavement packet [] Provided Bible/devotional materials [] Provided toy/stuffed animal, coloring book to patient or family member [] Provided Communion [] Anointing/[place] [] Salvation [x] Completed spiritual assessment [] Other: Impact on Illness or Injury [] Angry [] Fearful [] Anxious [] Often cries [] Exhaustion [] Unable to work [] Unable to attend yazdanism [] Unable to walk/stand [] Unable to read [] Unable to drive [] Unable to eat/drink [] Unable to sleep [] Unable to be with family [] Patient intubated [] Other: Summary Time spent with patient 5 min
[2023-12-10] MEDS: insulin glargine 100 units/1 mL 40 UNIT SUBCUT (09:36)
[2023-12-10 10:54] LABS: Glucose Point of Care 163 mg/dL (70-110)
--- NOTE | 2023-12-10 11:46 | XR_ITS ---
WS: [id number] XR chest 1V portable [id number] REASON FOR EXAM: DONE IN ERROR, NO CHARGE TO PATIENT FINDINGS: Cardiac device overlying the anterolateral left chest with trans left subclavian lead to the right ve ntricular apex. Mild tortuosity of the thoracic aorta. Mild cardiomegaly. No acute pulmonary parenchymal or pleural abnormality. No change compared to the examination of earlier the same day. XR/XR chest 1V portable [id number] IMPRESSION: Cardiomegaly without acute cardiopulmonary abnormality identified.
--- NOTE | 2023-12-10 12:30 | P.PN_ITS ---
Subjective 2 Subjective: seen today sitting up on edge of bed, says he feels weak talked with his mother on phone and updated her on pts care she says he was about to go to [facility] prior to coming back to hospital dig level 2.1 this morning. hr normal range cr 1.9 K 2.7 this morning - 40 oral given this AM by night hospitalist baseline trop 273, no other trops available to view patient denies chest pain at this time. Vitals/I&O/Wt Last Vital Signs Temp 97.6 F 12/10/23 11:31 Pulse 59 L 12/10/23 11:31 Resp 17 12/10/23 11:31 BP 95/70 12/10/23 11:31 Pulse Ox 94 12/10/23 11:31 O2 Del Method Room Air 12/10/23 11:31 12/09/23 12/10/23 12/10/23 22:59 06:59 14:59 Intake Total 1290 / 1290 240 / 1530 120 / 120 Output Total 200 / 200 Balance 1290 / 1290 40 / 1330 120 / 120 Weight last 48 hrs Weight 113.307 kg Weight 113.307 kg Weight 112.037 kg Physical Exam 2 Narrative: General: Alert oriented x3, patient seen sitting up edge of bed HEENT: Normocephalic, atraumatic, EOMI, breathing comfortably on room air Cardio: Regular rate rhythm, normal S1-S2, Respiratory: Good bilateral air entry, no wheezes no rhonchi appreciated GI: Abdomen soft, nontender, nondistended, bowel sounds + Behavior: Appropriate and cooperative Extremities: no edema, no cyanosis Data 12/10/23 05:19 12/10/23 05:19 Micro: Microbiology 12/09/23 10:53 Urine Culture - Preliminary Urine,Clean Catch Gram Negative Rods A&P Assessment and plan (1) Ischemic cardiomyopathy: (2) CHF (congestive heart failure): (3) CAD (coronary artery disease): (4) ICD (implantable cardioverter-defibrillator) in place: (5) Hyperlipidemia: (6) Hypothyroidism: (7) Diabetes mellitus, type II, insulin dependent: (8) CAPRI (acute kidney injury): (9) COPD (chronic obstructive pulmonary disease): (10) Chronic hypercapnic respiratory failure: (11) Obstructive sleep apnea: (12) Digoxin toxicity: Plan #Weakness #Acute kidney injury on CKD #Nausea #Supratherapeutic digoxin level #Chronic systolic diastolic dysfunction with EF 36% #Chronic hypotension, on midodrine #UTI #Hypothyroidism #History of multiorgan failure, requiring temporary dialysis in August 2023 #Chronic COPD #Renal calculus #History of CAD #History of CKD stage II #Insulin-dependent diabetes mellitus #Hyperlipidemia #History of STEMI -Check blood culture, urine culture ? Digoxin level 2.1 on admission. Digoxin has been stopped. Will recheck in AM. ? Vitals are stable as of now we will continue to monitor ? Hold carvedilol ? Continue midodrine, aspirin ? Continue levothyroxine 75 daily. Will need to repeat TSH in 4 to 6 weeks ? DuoNeb every 4 hours as needed ? Continue home gabapentin reduced dose secondary to CAPRI ? Check CK, uric acid ? Continue Rocephin 1 g daily ? ICD in place. Will interrogate ? I will hold metolazone but continue furosemide today. ? Lactic acidosis on admission has resolved with IV fluids ? CAPRI on CKD. Baseline creatinine 1.5-1.8 range. On admission 2.2. Metolazone has been held. Patient did report decreased urine output last few days. Potassium high along with magnesium and abnormal urinalysis on admission. History of rhabdomyolysis this year. Continue to monitor. Consult nephrology -Patient may need to go back to senior living for acute rehab at time of discharge. However will order physical therapy consult and reevaluate for that once medically stable for discharge. - baseline trop 273. no other trops available - recheck trop series and serial ekgs, pt not complaining of any chest pain, Full code DVT prophylaxis: Heparin SQ twice daily Attestations 2 Medical Necessity Statement*: Greater than 2 midnight stay for management of UTI, supratherapeutic digoxin levels, CAPRI Diagnoses Ischemic cardiomyopathy I25.5 Acute on chronic systolic congestive heart failure I50.9 Coronary artery disease involving [place] coronary artery of [place] heart without angina pectoris I25.10 ICD (implantable cardioverter-defibrillator) in place Z95.810 Hyperlipidemia, unspecified hyperlipidemia type E78.5 Hypothyroidism E03.9 Diabetes mellitus, type II, insulin dependent E11.9; Z79.4 CAPRI (acute kidney injury) N17.9 COPD (chronic obstructive pulmonary disease) J44.9 Chronic hypercapnic respiratory failure J96.12 Obstructive sleep apnea G47.33 Digoxin toxicity T46.0X1A
--- NOTE | 2023-12-10 12:35 | ECG_ITS ---
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 Measurements Intervals [place] Rate: 60 P: 76 TN: 131 QRS: -79 QRSD: 176 T: 79 QT: 495 QTc: 495 Interpretive Statements ELECTRONIC VENTRICULAR PACEMAKER Compared to ECG 12/09/2023 09:52:06 No significant changes Electronically Signed On 12-10-2023 17:17:37 CDT by Alverto Qureshi M.D. [email or web address] [email or web address] system [id number]
[2023-12-10] MEDS: cefTRIAXone 1,000 MG in sodium chloride 0.9% (plus) 50 ML 100 MG IV (12:46)
[2023-12-10] MEDS: insulin lispro 100 unit/1 mL 10 UNIT SUBCUT (12:46)
[2023-12-10] MEDS: insulin lispro 100 unit/1 mL SUBCUT (12:47)
[2023-12-10 13:40] LABS: Troponin(5th) Baseline 209 ng/L (0-15)
[2023-12-10] MEDS: sodium chloride 0.9% 1,000 ML 50 ML IV (15:39)
--- NOTE | 2023-12-10 15:43 | ECG_ITS ---
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 Measurements Intervals [place] Rate: 60 P: 0 SD: 0 QRS: -80 QRSD: 237 T: 0 QT: 368 QTc: 368 Interpretive Statements ELECTRONIC VENTRICULAR PACEMAKER Compared to ECG 12/10/2023 13:12:07 No significant changes Electronically Signed On 12-10-2023 17:21:35 CDT by Alverto Qureshi M.D. [id number]
[2023-12-10 15:54] LABS: Troponin 5 2HR 201.9 ng/L (0-15); Troponin 5 2HR Delta -7.1 ABS# (0-10)
[2023-12-10 16:50] LABS: Glucose Point of Care 118 mg/dL (70-110)
--- NOTE | 2023-12-10 18:16 | ECG_ITS ---
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 Measurements Intervals [place] Rate: 60 P: 0 NE: 0 QRS: -32 QRSD: 238 T: 0 QT: 557 QTc: 557 Interpretive Statements ELECTRONIC VENTRICULAR PACEMAKER PROLONGED QT INTERVAL Compared to ECG 12/10/2023 15:43:41 Prolonged QT interval now present Electronically Signed On 12-11-2023 17:00:02 CDT by Alverto Qureshi M.D. [id number]
--- NOTE | 2023-12-10 18:30 | USCV_ITS ---
Param Tejada Age: 58 Gender: M : 1965 Exam Date: 12/10/2023 19:36 Ordering Phys: Tri Dunne MD Technologist: MARIA ALEJANDRA [place] [facility] [place]ication: elevated troponin. Patient is unresponsive in 276- 2 on BIPAP. BP: 102 / 70 HR: 59 Rhythm: Paced, atrial fibrillation Technical Quality: Adequate MEASUREMENTS (Male / Female) Normal Values 2D ECHO LV Diastolic Diameter PLAX 6.9 cm 4.2 - 5.9 / 3.9 - 5.3 cm IVS Diastolic Thickness 1.0 cm 0.6 - 1.0 / 0.6 - 0.9 cm IVS Systolic Thickness 1.0 cm LVPW Diastolic Thickness 1.4 cm 0.6 - 1.0 / 0.6 - 0.9 cm LVPW Systolic Thickness 1.4 cm LVOT Diameter 2.1 cm LV Ejection Fraction 2D Teich 13.5 % LV Ejection Fraction MOD 2C 30.1 % LV Ejection Fraction 2C AL 30.5 % LA Diameter 3.5 cm Aorta at Sinotubular Diameter 2.6 cm IVC Diameter 2.8 cm M-MODE LA Ao Ratio MM 1.5 AV Cusp Separation MM 1.6 cm DOPPLER AV Peak Velocity 116.0 cm/s LVOT Peak Velocity 66.0 cm/s AV Area Cont Eq vti 2.1 cm squared AV Area Cont Eq pk 2.1 cm squared MV Peak Velocity 99.0 cm/s MV Area PHT 3.0 cm squared Mitral E to A Ratio 0.0 TR Peak Velocity 319.0 cm/s TR Peak Gradient 40.7 mmHg Right Atrial Pressure 3.0 mmHg Pulmonary Artery Systolic Pressu 43.7 mmHg PV Peak Velocity 65.0 cm/s FINDINGS Left Ventricle Technically limited quality echocardiogram because of poor ultrasonic windows. LV systolic function is severely reduced. Accurate assessment of EF is not possible because of limited visualization. Right Ventricle Grossly moderate RV hypokinesis Right Atrium Normal in size. Pacemaker lead is seen Left Atrium Dilated Mitral Valve Grossly normal. Mild to moderate mitral regurgitation Aortic Valve Thickened. No significant stenosis. Tricuspid Valve Mild tricuspid regurgitation. RVSP is 40 to 45 mmHg. This is consistent with mild pulmonary hypertension. Pulmonic Valve Not well visualized Pericardium Normal Aorta Normal in size IVC Dilated CONCLUSIONS Technically limited quality echocardiogram. LV systolic function is severely reduced. Grossly moderate RV hypokinesis. Left atrial dilation Mild to moderate mitral regurgitation Mild tricuspid regurgitation Mild pulmonary hypertension. IVC is dilated. Alverto Qureshi MD (Electronically Signed) Final Date: 11 Dec 2023 11:39 S
[2023-12-10 19:41] LABS: Troponin 5 6HR 229.7 ng/L (0-15); Troponin 5 6HR Delta 20.7 ng/L (0-12)
[2023-12-10 20:47] LABS: Glucose Point of Care 84 mg/dL (70-110)
[2023-12-10] MEDS: sennosides-docusate Tablet 1 TAB PO (20:58)
[2023-12-10] MEDS: heparin 5,000 unit/mL INJ 1 mL IV (21:48)
[2023-12-10] MEDS: heparin drip 25,000 UNIT/500 ML PREMIX 31.7300000000000004 UNIT IV (21:51)
[2023-12-11] VITALS (15 sets, daily range): BP systolic 102–121; BP diastolic 73–88; PULSE 60–62; RESP 15–20; TEMP 35.8–36.6; O2SAT 90–100; BMI 42.4
[2023-12-11 04:27] LABS: Glucose Point of Care 76 mg/dL (70-110)
[2023-12-11 04:56] LABS: Anion Gap 16.3 (5-19); Blood Urea Nitrogen 61 mg/dL (6-20); Calcium 9.1 mg/dL (8.5-10.5); Carbon Dioxide 32 mmol/L (22-29); Chloride 100 mmol/L (98-107); Digoxin 1.3 ng/mL (0.6-1.2); Glomerular Filtration Rate 44.5 mL/min (90-130); Glucose 65 mg/dL (65-115); Osmolality Calculated 315 mOsm/kg (285-295); Potassium 3.3 mmol/L (3.5-5.1); Sodium 145 mmol/L (136-145)
[2023-12-11 05:10] LABS: Partial Thromboplastin Time > 250.0 SECONDS (23.9-36.7)
[2023-12-11 05:17] LABS: Basophils # 0.1 10^3/uL (0.0-0.1); Basophils % 1.1 %; Eosinophils # 0.5 10^3/uL (0.0-0.8); Eosinophils % 6.9 %; Hematocrit 49.1 % (37-53); Lymphocytes # 1.6 10^3/uL (0.8-4.8); Lymphocytes % 22.3 %; Mean Corpuscular HGB Conc 29.5 g/dL (30-55); Mean Corpuscular Hemoglobin 25.3 pg (27-33); Mean Corpuscular Volume 85.5 fl (82-101); Mean Platelet Volume 10.8 fL (7.4-10.4); Monocytes # 1.1 10^3/uL (0.2-0.9); Neutrophils # 3.88 10^3/uL (1.8-7.7); Neutrophils % 54.4 %; Nucleated Red Blood Cells % 0 %; Platelet Count 334 10^3/cmm (157-399); Red Blood Count 5.74 10^6/uL (3.85-5.65); Red Cell Distribution Width 19.4 % (12.1-15.1); White Blood Count 7.13 10^3/uL (3.29-11.43)
[2023-12-11 05:35] LABS: Phosphorus 4.4 mg/dL (2.5-4.5)
[2023-12-11] MEDS: aspirin 81 mg EC Tablet PO (06:12)
[2023-12-11 06:40] LABS: Glucose Point of Care 91 mg/dL (70-110)
[2023-12-11 08:08] LABS: Partial Thromboplastin Time 228.4 SECONDS (23.9-36.7)
--- NOTE | 2023-12-11 09:35 | P.CONIM_ITS ---
Providers/Reason For Consult 2 Consulting Physician/Specialty*: kommana/nephrology Reason for Consult*: Acute on CKD Attending Physician: Tri Dunne MD Primary Care Provider: Karla Ryan MD History of Present Illness History of Present Illness Param Tejada is a 58 year old male Patient is a 58-year-old male with past medical problems including diabetes, hypertension, chronic kidney disease with a baseline creatinine in the mid 1 range, also required temporary dialysis in August 2023, COPD, coronary artery disease, ICD, presented to the emergency department due to generalized weakness going on for few days. He was noted to have a creatinine of 2.1 on presentation, lactic acid was 3.4. Chest x-ray showed no acute findings. CT abdomen nonobstructive left renal calculi.\ Review of Systems 2 Narrative: Other ros negative Medications/Allergies Home Medications Medication Instructions Recorded Confirmed Last Taken Type aspirin 81 mg tablet,delayed 81 mg PO QAM 11/29/20 12/09/23 12/09/23 History release blood-glucose meter,continuous #1 ea 08/23/22 12/09/23 Unknown Rx (Dexcom G6 Tank Wagon Operator) blood-glucose transmitter (Dexcom #3 ea 08/23/22 12/09/23 Unknown Rx G6 Transmitter device) blood-glucose sensor (Dexcom G6 #9 ea 04/19/23 12/09/23 Unknown Rx Sensor device) gabapentin 300 mg capsule 600 mg PO TID Pain 08/13/23 12/09/23 12/09/23 History levothyroxine 50 mcg tablet 50 mcg PO DAILY 08/13/23 12/09/23 12/09/23 History metolazone 2.5 mg tablet 2.5 mg PO DAILY 08/13/23 12/09/23 12/09/23 History acetaminophen 325 mg tablet 650 mg PO Q6H PRN Pain 12/09/23 12/09/23 12/04/23 History albuterol sulfate 2.5 mg/3 mL 2.5 mg inhalation BID 12/09/23 12/09/23 12/09/23 History (0.083 %) solution for nebulization albuterol sulfate 2.5 mg/3 mL 2.5 mg inhalation Q6H PRN 12/09/23 12/09/23 12/07/23 History (0.083 %) solution for nebulization Shortness Of Breath Or Wheezing bisacodyl 10 mg rectal suppository 10 mg WI DAILY PRN Constipation 12/09/23 12/09/23 Unknown History (Dulcolax (bisacodyl)) carvedilol 3.125 mg tablet 3.125 mg PO BID 12/09/23 12/09/23 12/09/23 History cetirizine 10 mg tablet 10 mg PO DAILY 12/09/23 12/09/23 12/09/23 History cetirizine 5 mg tablet 5 mg PO DAILY PRN ALLERGIES 12/09/23 12/09/23 11/18/23 History cholecalciferol (vitamin D3) 1,250 1,250 mcg PO Q7D 12/09/23 12/09/23 12/03/23 History mcg (50,000 unit) capsule digoxin 125 mcg (0.125 mg) tablet 125 mcg PO DAILY 12/09/23 12/09/23 12/09/23 History empagliflozin 10 mg tablet 10 mg PO QAM 12/09/23 12/09/23 12/09/23 History (Jardiance) furosemide 40 mg tablet 40 mg PO BID 12/09/23 12/09/23 12/09/23 History insulin glargine 100 unit/mL (3 60 unit SUBCUT DAILY 12/09/23 12/09/23 12/08/23 History mL) subcutaneous pen insulin lispro 100 unit/mL See Rx Instructions .Route .COMPLEX 12/09/23 12/09/23 12/06/23 History subcutaneous pen insulin lispro 100 unit/mL See Rx Instructions .Route .COMPLEX 12/09/23 12/09/23 12/09/23 History subcutaneous pen magnesium hydroxide 400 mg/5 mL 30 ml PO DAILY PRN Constipation 12/09/23 12/09/23 Unknown History oral suspension (Milk of Magnesia) melatonin 3 mg tablet 3 mg PO BEDTIME PRN Sleep 12/09/23 12/09/23 11/25/23 History midodrine 10 mg tablet 10 mg PO TID 12/09/23 12/09/23 12/09/23 History polyethylene glycol 3350 17 17 g PO DAILY 12/09/23 12/09/23 12/09/23 History gram/dose oral powder (Miralax) ramelteon 8 mg tablet 8 mg PO BEDTIME INSOMNIA 12/09/23 12/09/23 12/08/23 History sennosides 8.6 mg-docusate sodium 1 tab-cap PO BEDTIME PRN 12/09/23 12/09/23 Unknown History 50 mg tablet (Senokot-S) Constipation sodium phosphates 19 gram-7 118 ml WI DAILY PRN Constipation 12/09/23 12/09/23 Unknown History gram/118 mL enema (Fleet Enema) Allergies Allergy/AdvReac Type Severity Reaction Status Date / Time Sulfa (Sulfonamide Allergy Severe ALGY-Anaphy Verified 08/11/23 11:31 Antibiotics) laxis Current Medications Generic Name Dose Route Start Last Admin Trade Name Freq PRN Reason Stop Dose Admin Acetaminophen 650 mg 12/09/23 16:57 12/09/23 22:07 Acetaminophen 325 Mg Tablet PO 650 mg Q6H PRN Administration mild pain or temp >/= 101 Aspirin 81 mg 12/10/23 06:00 12/11/23 06:12 Aspirin 81 Mg Ec Tablet PO 81 mg QAM VRIA Administration Carvedilol 3.125 mg 12/09/23 18:00 12/10/23 18:22 Carvedilol 3.125 Mg Tablet PO 3.125 mg BID VIRA Administration Gabapentin 300 mg 12/09/23 21:00 12/10/23 20:58 Gabapentin 300 Mg Capsule PO 300 mg TID VIRA Administration Heparin Sodium (Porcine) 0 unit 12/10/23 21:26 12/10/23 21:48 Heparin 5,000 Unit/Ml Inj 1 Ml IV 5,800 unit PRN PRN Administration Heparin weight-base protocol Protocol Sodium Chloride 1,000 mls @ 50 mls/hr 12/09/23 17:15 12/10/23 15:39 Sodium Chloride 0.9% IV 50 mls/hr .Q20H VIRA Administration Ceftriaxone Sodium 1,000 mg/ 50 mls @ 100 mls/hr 12/10/23 11:00 12/10/23 13:16 Sodium Chloride IV Infused Q24H VIRA Infusion Protocol Heparin Sodium/Sodium Chloride 25,000 unit in 500 mls @ 0 mls/hr 12/10/23 21:30 12/11/23 05:30 Heparin Drip IV 0 unit/kg/hr .Q0M VIRA 0 mls/hr Titration Protocol Per Protocol Insulin Glargine 40 unit 12/10/23 08:00 12/10/23 09:36 Insulin Glargine 100 Units/1 Ml SUBCUT 40 unit DAILY@08 VIRA Administration Insulin Human Lispro 10 unit 12/10/23 07:00 12/11/23 05:34 Insulin Lispro 100 Unit/1 Ml SUBCUT Not Given TIDAC [facility] Insulin Human Lispro 0 unit 12/09/23 21:00 12/10/23 20:48 Insulin Lispro 100 Unit/1 Ml SUBCUT Not Given BEDTIME [facility] Protocol Insulin Human Lispro 0 unit 12/09/23 18:00 12/10/23 18:21 Insulin Lispro 100 Unit/1 Ml SUBCUT Not Given TIDWM [facility] Protocol Levothyroxine Sodium 75 mcg 12/10/23 09:00 12/10/23 09:21 Levothyroxine 50 Mcg Tablet PO 75 mcg DAILY VIRA Administration Midodrine 10 mg 12/09/23 21:00 12/10/23 20:58 Midodrine 5 Mg Tablet PO 10 mg TID VIRA Administration Pantoprazole Sodium 40 mg 12/10/23 09:00 12/10/23 09:[address] 40 Mg Tablet PO 40 mg DAILY VIRA Administration Phenazopyridine HCl 200 mg 12/10/23 03:37 12/10/23 04:30 Phenazopyridine 100 Mg Tablet PO 200 mg TID PRN Administration DYSURIA Polyethylene Glycol 17 gm 12/10/23 09:00 12/10/23 09:21 Polyethylene Glycol 3350 Pkt 17 Gm PO 17 gm DAILY VIRA Administration Senna/Docusate Sodium 1 tab 12/09/23 21:00 12/10/23 20:58 Sennosides-Docusate Tablet PO 1 tab BEDTIME VIRA Administration PFSH Acute 2 PFSH: Medical History (Updated 12/09/23 @ 19:14 by Jacqui Mesa MD) History of transesophageal echocardiography (NANCY) August 2023 Multiorgan failure 07/2023 - 08/2023 when admitted with COVID 19, intubated, temporary dialysis with CRRT for CAPRI/ARF and fluid overload, transient afib, encephalopathy, shock liver, septic shock, required TPN and transfer to LTAC facility History of renal dialysis temporary dialysis in August 2023 Chronic hypercapnic respiratory failure Hypothyroidism Chronic kidney disease Sustained ventricular tachycardia 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 Pneumonia due to COVID-19 virus August 2023, severe treated with dexamethasone and remdesivir Staphylococcus aureus pneumonia August 2023 when had covid, also had staph lundgensis and staph epidermidis in cultures > received prolonged course of antibiotics with cefazolin via PICC per ID recommendations which completed in Sep 2023 Renal calculus history of left renal calculi and at least 2 spontaneous passage Personal history of nicotine dependence CHF (congestive heart failure) systolic and diastolic dysfunction CAD (coronary artery disease) 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 2 diabetes mellitus Insulin dependent diabetes mellitus ICD (implantable cardioverter-defibrillator) in place single chamber medtronic ICD programmed with a lower rate at 40 bpm per report 08/20/2023 Morbid obesity Obstructive sleep apnea Intolerant of home bipap COPD (chronic obstructive pulmonary disease) Ischemic cardiomyopathy Technically limited echo in 08/2023 with diffuse hypokinesis and EF 36% Hyperlipidemia Hypertension ST elevation myocardial infarction (STEMI) of inferior wall Surgical History (Updated 12/09/23 @ 18:20 by Jacqui Mesa MD) History of cardiac catheterization ~06/2023 with no intervention performed per cardiology consult notes in 08/2023 History of appendectomy History of hernia surgery S/P knee replacement History of left knee replacement History of cardiac defibrillator placement History of coronary artery stent placement 2015 hx of CAD with inferior wall MD s/p RCA stent, LAD stent Family History Father No problems noted. Mother No problems noted. Denies family history of CAD (coronary artery disease) Social History Smoking and tobacco/nicotine status: former use of tobacco/nicotine Alcohol intake: never Substance/Drug Use: never Marital status: Single Current occupational status: disabled Do you think of yourself as: Straight/Heterosexual Vitals/I&O/Wt Last Vital Signs Temp 97.8 F 12/11/23 08:00 Pulse 60 12/11/23 08:00 Resp 16 12/11/23 08:00 BP 120/84 12/11/23 08:00 Pulse Ox 95 12/11/23 07:58 O2 Del Method Room Air 12/11/23 07:58 FiO2 28 12/11/23 04:49 12/10/23 12/11/23 12/11/23 22:59 06:59 14:59 Intake Total 150 / 1320 242.735 / 1562.735 240 / 240 Balance 150 / 1320 242.735 / 1562.735 240 / 240 Weight last 48 hrs Weight 115.711 kg Weight 115.711 kg Weight 113.307 kg Weight 113.307 kg Weight 112.037 kg Physical Exam 2 Narrative: awake , alert heent s1s2 rrr per report lungs clear per report no edema Data 12/11/23 04:26 12/11/23 04:20 Micro: Microbiology 12/09/23 10:53 Urine Culture - Final Urine,Clean Catch Serratia marcescens A&P Assessment and plan (1) Chronic kidney disease: (2) CAPRI (acute kidney injury): Plan 1. Acute on chronic kidney disease stage III: Baseline creatinine is in the mid 1 range, patient has multiple CAPRI's in the past and also required temporary dialysis. Now has an CAPRI with a creatinine of 2.2 likely secondary to decreased p.o. intake and secondary to meds including ARB, metolazone and Lasix. -Will hold diuretics temporarily, continue to monitor renal function, creatinine is improved from 2.2-1.6 today which is close to baseline. -Will hold off on metolazone but will resume Lasix at discharge-40 mg p.o. twice daily -No obstruction on CT, 2. Possible digoxin toxicity, bradycardia was noted prior to presentation here. Avoid digoxin if possible, given known CKD and history of multiple CAPRI's. 3. Hypokalemia replete 4. Cystitis 5. Nonobstructing kidney stones, urology referral as outpatient Patient evaluated using audiovisual cart. Time spent 40 minutes. Coding Level of Care Code Acute Code for [facility] Diagnoses Chronic kidney disease N18.9 CAPRI (acute kidney injury) N17.9
[2023-12-11] MEDS: sodium chloride 0.9% 1,000 ML 50 ML IV (09:53)
[2023-12-11] MEDS: insulin glargine 100 units/1 mL 40 UNIT SUBCUT (09:53)
[2023-12-11] MEDS: gabapentin 300 mg Capsule PO ×3 (09:54→21:33)
[2023-12-11] MEDS: midodrine 5 mg TABLET 10 MG PO ×3 (09:54→21:33)
[2023-12-11] MEDS: carvedilol 3.125 mg Tablet PO ×2 (09:55→18:08)
[2023-12-11] MEDS: polyethylene glycol 3350 Pkt 17 gm PO (09:55)
[2023-12-11] MEDS: levothyroxine 50 mcg Tablet 75 MCG PO (09:58)
--- NOTE | 2023-12-11 09:58 | PC.SOCIAL ---
IMM Update Pg. 2 of IMM updated. Copy provided, copy placed in chart.
[2023-12-11] MEDS: pantoprazole DR 40 mg Tablet PO (10:04)
[2023-12-11 11:16] LABS: Glucose Point of Care 134 mg/dL (70-110)
--- NOTE | 2023-12-11 11:31 | P.CONIM_ITS ---
Providers/Reason For Consult 2 Consulting Physician/Specialty*: Alverto Qureshi MD/ Cardiology Reason for Consult*: Troponin elevation Requesting Physician: Dr Dunne Attending Physician: Tri Dunne MD Primary Care Provider: Karla Ryan MD History of Present Illness History of Present Illness Param Tejada is a 58 year old male with past medical history of ischemic cardiomyopathy, ICD in place, atrial fibrillation who presented with weakness and fatigue from facility. Patient had been having the symptoms for 4 to 5 days. Was found to have CAPRI with creatinine of 2.2 and BUN of 76. Digoxin level is also elevated. Cardiology was consulted as patient had elevated troponin of 237 that did not trend up significantly. EKG shows paced rhythm. Patient denies chest pain. Has shortness of breath. Review of Systems 2 Const: Reports: fatigue and malaise; Denies: fever(s) Eyes: Reports: blurry vision ENMT: Denies: throat pain or nasal congestion Card: Reports: swelling of feet/ankles, lightheadedness and other; Denies: chest pain, palpitations, irregular heart rhythm, syncope or orthopnea Resp: Reports: dyspnea, productive cough and non-productive cough GI: Reports: nausea; Denies: abdominal pain, vomiting, diarrhea or change in bowel habits : Reports: dysuria and oliguria; Denies: flank pain or hematuria Musc: Reports: other (general aches, no place really hurts more than others, dropping things more) Skin/Breast: Denies: rash or sores Neuro: Reports: weakness in extremities and involuntary movements (shaking a lot, cant hold things as well, new last few days) Endo: Reports: tired all the time Ruben/Lymph: Reports: easy bruising; Denies: easy bleeding Medications/Allergies Home Medications Medication Instructions Recorded Confirmed Last Taken Type aspirin 81 mg tablet,delayed 81 mg PO QAM 11/29/20 12/09/23 12/09/23 History release blood-glucose meter,continuous #1 ea 08/23/22 12/09/23 Unknown Rx (Dexcom G6 Dough Mixer) blood-glucose transmitter (Dexcom #3 ea 08/23/22 12/09/23 Unknown Rx G6 Transmitter device) blood-glucose sensor (Dexcom G6 #9 ea 04/19/23 12/09/23 Unknown Rx Sensor device) gabapentin 300 mg capsule 600 mg PO TID Pain 08/13/23 12/09/23 12/09/23 History levothyroxine 50 mcg tablet 50 mcg PO DAILY 08/13/23 12/09/23 12/09/23 History metolazone 2.5 mg tablet 2.5 mg PO DAILY 08/13/23 12/09/23 12/09/23 History acetaminophen 325 mg tablet 650 mg PO Q6H PRN Pain 12/09/23 12/09/23 12/04/23 History albuterol sulfate 2.5 mg/3 mL 2.5 mg inhalation BID 12/09/23 12/09/23 12/09/23 History (0.083 %) solution for nebulization albuterol sulfate 2.5 mg/3 mL 2.5 mg inhalation Q6H PRN 12/09/23 12/09/23 12/07/23 History (0.083 %) solution for nebulization Shortness Of Breath Or Wheezing bisacodyl 10 mg rectal suppository 10 mg TX DAILY PRN Constipation 12/09/23 12/09/23 Unknown History (Dulcolax (bisacodyl)) carvedilol 3.125 mg tablet 3.125 mg PO BID 12/09/23 12/09/23 12/09/23 History cetirizine 10 mg tablet 10 mg PO DAILY 12/09/23 12/09/23 12/09/23 History cetirizine 5 mg tablet 5 mg PO DAILY PRN ALLERGIES 12/09/23 12/09/23 11/18/23 History cholecalciferol (vitamin D3) 1,250 1,250 mcg PO Q7D 12/09/23 12/09/23 12/03/23 History mcg (50,000 unit) capsule digoxin 125 mcg (0.125 mg) tablet 125 mcg PO DAILY 12/09/23 12/09/23 12/09/23 History empagliflozin 10 mg tablet 10 mg PO QAM 12/09/23 12/09/23 12/09/23 History (Jardiance) furosemide 40 mg tablet 40 mg PO BID 12/09/23 12/09/23 12/09/23 History insulin glargine 100 unit/mL (3 60 unit SUBCUT DAILY 12/09/23 12/09/23 12/08/23 History mL) subcutaneous pen insulin lispro 100 unit/mL See Rx Instructions .Route .COMPLEX 12/09/23 12/09/23 12/06/23 History subcutaneous pen insulin lispro 100 unit/mL See Rx Instructions .Route .COMPLEX 12/09/23 12/09/23 12/09/23 History subcutaneous pen magnesium hydroxide 400 mg/5 mL 30 ml PO DAILY PRN Constipation 12/09/23 12/09/23 Unknown History oral suspension (Milk of Magnesia) melatonin 3 mg tablet 3 mg PO BEDTIME PRN Sleep 12/09/23 12/09/23 11/25/23 History midodrine 10 mg tablet 10 mg PO TID 12/09/23 12/09/23 12/09/23 History polyethylene glycol 3350 17 17 g PO DAILY 12/09/23 12/09/23 12/09/23 History gram/dose oral powder (Miralax) ramelteon 8 mg tablet 8 mg PO BEDTIME INSOMNIA 12/09/23 12/09/23 12/08/23 History sennosides 8.6 mg-docusate sodium 1 tab-cap PO BEDTIME PRN 12/09/23 12/09/23 Unknown History 50 mg tablet (Senokot-S) Constipation sodium phosphates 19 gram-7 118 ml TX DAILY PRN Constipation 12/09/23 12/09/23 Unknown History gram/118 mL enema (Fleet Enema) Allergies Allergy/AdvReac Type Severity Reaction Status Date / Time Sulfa (Sulfonamide Allergy Severe ALGY-Anaphy Verified 08/11/23 11:31 Antibiotics) laxis Current Medications Generic Name Dose Route Start Last Admin Trade Name Freq PRN Reason Stop Dose Admin Acetaminophen 650 mg 12/09/23 16:57 12/09/23 22:07 Acetaminophen 325 Mg Tablet PO 650 mg Q6H PRN Administration mild pain or temp >/= 101 Aspirin 81 mg 12/10/23 06:00 12/11/23 06:12 Aspirin 81 Mg Ec Tablet PO 81 mg QAM VIRA Administration Carvedilol 3.125 mg 12/09/23 18:00 12/11/23 09:55 Carvedilol 3.125 Mg Tablet PO 3.125 mg BID VIRA Administration Gabapentin 300 mg 12/09/23 21:00 12/11/23 09:54 Gabapentin 300 Mg Capsule PO 300 mg TID VIRA Administration Heparin Sodium (Porcine) 0 unit 12/10/23 21:26 12/10/23 21:48 Heparin 5,000 Unit/Ml Inj 1 Ml IV 5,800 unit PRN PRN Administration Heparin weight-base protocol Protocol Sodium Chloride 1,000 mls @ 50 mls/hr 12/09/23 17:15 12/11/23 09:53 Sodium Chloride 0.9% IV 50 mls/hr .Q20H VIRA Administration Ceftriaxone Sodium 1,000 mg/ 50 mls @ 100 mls/hr 12/10/23 11:00 12/10/23 13:16 Sodium Chloride IV Infused Q24H [facility] Infusion Protocol Heparin Sodium/Sodium Chloride 25,000 unit in 500 mls @ 0 mls/hr 12/10/23 21:30 12/11/23 05:30 Heparin Drip IV 0 unit/kg/hr .Q0M VIRA 0 mls/hr Titration Protocol Per Protocol Insulin Glargine 40 unit 12/10/23 08:00 12/11/23 09:53 Insulin Glargine 100 Units/1 Ml SUBCUT 40 unit DAILY@08 [facility] Administration Insulin Human Lispro 10 unit 12/10/23 07:00 12/11/23 05:34 Insulin Lispro 100 Unit/1 Ml SUBCUT Not Given TIDAC [facility] Insulin Human Lispro 0 unit 12/09/23 21:00 12/10/23 20:48 Insulin Lispro 100 Unit/1 Ml SUBCUT Not Given BEDTIME [facility] Protocol Insulin Human Lispro 0 unit 12/09/23 18:00 12/11/23 10:06 Insulin Lispro 100 Unit/1 Ml SUBCUT Not Given TIDWM [facility] Protocol Levothyroxine Sodium 75 mcg 12/10/23 09:00 12/11/23 09:58 Levothyroxine 50 Mcg Tablet PO 75 mcg DAILY VIRA Administration Midodrine 10 mg 12/09/23 21:00 12/11/23 09:54 Midodrine 5 Mg Tablet PO 10 mg TID VIRA Administration Pantoprazole Sodium 40 mg 12/10/23 09:00 12/11/23 10:[address] 40 Mg Tablet PO 40 mg DAILY VIRA Administration Phenazopyridine HCl 200 mg 12/10/23 03:37 12/10/23 04:30 Phenazopyridine 100 Mg Tablet PO 200 mg TID PRN Administration DYSURIA Polyethylene Glycol 17 gm 12/10/23 09:00 12/11/23 09:55 Polyethylene Glycol 3350 Pkt 17 Gm PO 17 gm DAILY VIRA Administration Senna/Docusate Sodium 1 tab 12/09/23 21:00 12/10/23 20:58 Sennosides-Docusate Tablet PO 1 tab BEDTIME VIRA Administration PFSH Acute 2 PFSH: Medical History (Updated 12/12/23 @ 10:39 by Alverto Qureshi M.D) History of transesophageal echocardiography (NANCY) August 2023 Multiorgan failure 07/2023 - 08/2023 when admitted with COVID 19, intubated, temporary dialysis with CRRT for CAPRI/ARF and fluid overload, transient afib, encephalopathy, shock liver, septic shock, required TPN and transfer to LTAC facility History of renal dialysis temporary dialysis in August 2023 Chronic hypercapnic respiratory failure Hypothyroidism Chronic kidney disease Sustained ventricular tachycardia 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 Pneumonia due to COVID-19 virus August 2023, severe treated with dexamethasone and remdesivir Staphylococcus aureus pneumonia August 2023 when had covid, also had staph lundgensis and staph epidermidis in cultures > received prolonged course of antibiotics with cefazolin via PICC per ID recommendations which completed in Sep 2023 Renal calculus history of left renal calculi and at least 2 spontaneous passage Personal history of nicotine dependence CHF (congestive heart failure) systolic and diastolic dysfunction CAD (coronary artery disease) 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 2 diabetes mellitus Insulin dependent diabetes mellitus ICD (implantable cardioverter-defibrillator) in place single chamber medtronic ICD programmed with a lower rate at 40 bpm per report 08/20/2023 Morbid obesity Obstructive sleep apnea Intolerant of home bipap COPD (chronic obstructive pulmonary disease) Ischemic cardiomyopathy Technically limited echo in 08/2023 with diffuse hypokinesis and EF 36% Hyperlipidemia Hypertension ST elevation myocardial infarction (STEMI) of inferior wall Surgical History (Updated 12/09/23 @ 18:20 by Jacqui Mesa MD) History of cardiac catheterization ~06/2023 with no intervention performed per cardiology consult notes in 08/2023 History of appendectomy History of hernia surgery S/P knee replacement History of left knee replacement History of cardiac defibrillator placement History of coronary artery stent placement 2016 hx of CAD with inferior wall [place] s/p RCA stent, LAD stent Family History Father No problems noted. Mother No problems noted. Denies family history of CAD (coronary artery disease) Social History Smoking and tobacco/nicotine status: former use of tobacco/nicotine Alcohol intake: never Substance/Drug Use: never Marital status: Single Current occupational status: disabled Do you think of yourself as: Straight/Heterosexual Vitals/I&O/Wt Last Vital Signs Temp 97.8 F 12/11/23 11:21 Pulse 60 12/11/23 11:21 Resp 17 12/11/23 11:21 BP 104/76 12/11/23 11:21 Pulse Ox 96 12/11/23 11:21 O2 Del Method Room Air 12/11/23 11:21 FiO2 28 12/11/23 04:49 12/10/23 12/11/23 12/11/23 22:59 06:59 14:59 Intake Total 150 / 1320 242.735 / 7450.566 4250.667 / 1151.667 Balance 150 / 1320 242.735 / 7622.191 2823.667 / 1151.667 Weight last 48 hrs Weight 255 lb 1.6 oz Weight 255 lb 1.6 oz Weight 249 lb 12.8 oz Weight 249 lb 12.8 oz Physical Exam 2 Narrative: GENERAL: Patient is alert, awake and oriented x3. [] NECK: No jugular vein distension. [] HEENT: No cyanosis. No icterus. No pallor. [] HEART: Regular S1 and S2. No murmur, rub or gallop. [] LUNGS: Diminished air entry CENTRAL NERVOUS SYSTEM: Grossly nonfocal. [] EXTREMITIES: Lower extremities with 1+ edema bilaterally. Data 12/12/23 04:50 12/12/23 08:15 Micro: Microbiology 12/09/23 10:53 Urine Culture - Final Urine,Clean Catch Serratia marcescens A&P Assessment and plan (1) Troponin level elevated: (2) Hypertension: Qualifiers: Hypertension type: essential hypertension Qualified Code(s): I10 - Essential (primary) hypertension (3) Hyperlipidemia: (4) ICD (implantable cardioverter-defibrillator) in place: (5) CAD (coronary artery disease): (6) CHF (congestive heart failure): (7) Ischemic cardiomyopathy: Plan Patient has significant CAD history. However troponin trended up significantly. He does not have chest pain. Will likely secondary to demand ischemia. Will medically treated. Echocardiogram was of very limited quality. Will recommend repeating with contrast. If significant decrease in the LV function, can consider ischemic workup. Continue aspirin. Patient is currently not on oral anticoagulation for atrial fibrillation. Monitor renal function and digoxin levels. At this time heart rates are controlled. Thank you for involving us with care of this patient. We will continue to follow. Please call with questions. Consult Attestations 2 Medical Necessity Statement: Care expected to cross 2 midnights. Coding Level of Care Code Acute Code for Chg Fwd Diagnoses Troponin level elevated R79.89 Essential hypertension I10 Hypertension type: essential hypertension Hyperlipidemia, unspecified hyperlipidemia type E78.5 ICD (implantable cardioverter-defibrillator) in place Z95.810 Coronary artery disease involving [place] coronary artery of [place] heart without angina pectoris I25.10 Acute on chronic systolic congestive heart failure I50.9 Ischemic cardiomyopathy I25.5
[2023-12-11] MEDS: cefTRIAXone 1,000 MG in sodium chloride 0.9% (plus) 50 ML 100 MG IV (11:48)
--- NOTE | 2023-12-11 11:53 | P.PN_ITS ---
Subjective 2 Subjective: Seen this morning. No acute events overnight. Patient appears to be sitting up comfortably on the edge of the bed. Vitals/I&O/Wt Last Vital Signs Temp 97.8 F 12/11/23 11:21 Pulse 60 12/11/23 11:21 Resp 17 12/11/23 11:21 BP 104/76 12/11/23 11:21 Pulse Ox 96 12/11/23 11:21 O2 Del Method Room Air 12/11/23 11:21 FiO2 28 12/11/23 04:49 12/10/23 12/11/23 12/11/23 22:59 06:59 14:59 Intake Total 150 / 1320 242.735 / 9531.455 8999.667 / 1151.667 Balance 150 / 1320 242.735 / 9332.908 5913.667 / 1151.667 Weight last 48 hrs Weight 115.711 kg Weight 115.711 kg Weight 113.307 kg Weight 113.307 kg Physical Exam 2 Narrative: General: Alert oriented x3, patient seen sitting up edge of bed HEENT: Normocephalic, atraumatic, EOMI, breathing comfortably on room air Cardio: Regular rate rhythm, normal S1-S2, Respiratory: Good bilateral air entry, no wheezes no rhonchi appreciated GI: Abdomen soft, nontender, nondistended, bowel sounds + Behavior: Appropriate and cooperative Extremities: no edema, no cyanosis Data 12/11/23 04:26 12/11/23 04:20 Micro: Microbiology 12/09/23 10:53 Urine Culture - Final Urine,Clean Catch Serratia marcescens A&P Assessment and plan (1) Ischemic cardiomyopathy: (2) CHF (congestive heart failure): (3) CAD (coronary artery disease): (4) ICD (implantable cardioverter-defibrillator) in place: (5) Hyperlipidemia: (6) Hypothyroidism: (7) Diabetes mellitus, type II, insulin dependent: (8) CAPRI (acute kidney injury): (9) COPD (chronic obstructive pulmonary disease): (10) Chronic hypercapnic respiratory failure: (11) Obstructive sleep apnea: (12) Digoxin toxicity: Plan #Weakness #Acute kidney injury on CKD #Nausea #Supratherapeutic digoxin level #Chronic systolic diastolic dysfunction with EF 36% #Chronic hypotension, on midodrine #UTI #Hypothyroidism #History of multiorgan failure, requiring temporary dialysis in August 2023 #Chronic COPD #Renal calculus #History of CAD #History of CKD stage II #Insulin-dependent diabetes mellitus #Hyperlipidemia #History of STEMI - Check blood culture, urine culture ? Digoxin level 2.1 on admission. Digoxin has been stopped. Will recheck in AM. ? Vitals are stable as of now we will continue to monitor ? Hold carvedilol ? Continue midodrine, aspirin ? Continue levothyroxine 75 daily. Will need to repeat TSH in 4 to 6 weeks ? DuoNeb every 4 hours as needed ? Continue home gabapentin reduced dose secondary to CAPRI ? Continue Rocephin 1 g daily ? ICD in place. Will interrogate ? I will hold metolazone but continue furosemide today. ? Lactic acidosis on admission has resolved with IV fluids ? CAPRI on CKD. Baseline creatinine 1.5-1.8 range. On admission 2.2. Metolazone has been held. Patient did report decreased urine output last few days. Potassium high along with magnesium and abnormal urinalysis on admission. History of rhabdomyolysis this year. Continue to monitor. Consult nephrology -Patient may [facility] at time of discharge. However will order physical therapy consult and reevaluate for that once medically stable for discharge. - baseline trop 273. no other trops available - recheck trop series and serial ekgs, pt not complaining of any chest pain, - Possible NSTEMI? - delta trop 20, start heparin drip. check echo, consult cardiology. pt is a very poor historian - dig level 1.3 this morning Full code DVT prophylaxis: Heparin SQ twice daily Attestations 2 Medical Necessity Statement*: Greater than 2 midnight stay for management of UTI, supratherapeutic digoxin levels, CAPRI Diagnoses Ischemic cardiomyopathy I25.5 Acute on chronic systolic congestive heart failure I50.9 Coronary artery disease involving [place] coronary artery of [place] heart without angina pectoris I25.10 ICD (implantable cardioverter-defibrillator) in place Z95.810 Hyperlipidemia, unspecified hyperlipidemia type E78.5 Hypothyroidism E03.9 Diabetes mellitus, type II, insulin dependent E11.9; Z79.4 CAPRI (acute kidney injury) N17.9 COPD (chronic obstructive pulmonary disease) J44.9 Chronic hypercapnic respiratory failure J96.12 Obstructive sleep apnea G47.33 Digoxin toxicity T46.0X1A
[2023-12-11 16:19] LABS: Glucose Point of Care 161 mg/dL (70-110)
[2023-12-11] MEDS: insulin lispro 100 unit/1 mL SUBCUT ×2 (18:08→21:33)
[2023-12-11 20:37] LABS: Glucose Point of Care 201 mg/dL (70-110)
[2023-12-11] MEDS: sennosides-docusate Tablet 1 TAB PO (21:33)
[2023-12-12] VITALS (43 sets, daily range): BP systolic 87–125; BP diastolic 53–93; PULSE 60–91; RESP 14–35; TEMP 36.1–36.7; O2SAT 83–100
[2023-12-12] MEDS: aspirin 81 mg EC Tablet PO (05:09)
[2023-12-12] MEDS: sodium chloride 0.9% 1,000 ML 50 ML IV (05:09)
[2023-12-12 06:52] LABS: Glucose Point of Care 75 mg/dL (70-110)
[2023-12-12 06:55] LABS: SARS Covid-2 Antigen negative (Negative)
[2023-12-12 07:15] LABS: Digoxin 1.3 ng/mL (0.6-1.2)
--- NOTE | 2023-12-12 09:03 | XRR_ITS ---
PROCEDURE INFORMATION: Exam: XR Chest Exam date and time: 12/12/2023 9:51 AM Age: 58 years old Clinical indication: Shortness of breath; Additional info: SOB TECHNIQUE: Imaging protocol: Radiologic exam of the chest. Views: 1 view. COMPARISON: CR XR chest 1V portable [id number] 12/09/2023 10:54 AM FINDINGS: Tubes, catheters and devices: Cardiac pacemaker on the left with leads in satisfactory position. Lungs: Unremarkable. No consolidation or mass. Pleural spaces: Unremarkable. No pleural effusion. No pneumothorax. Heart/Mediastinum: Prominent cardiomegaly is noted. Bones/joints: Unremarkable. XR/XR chest 1V [id number] IMPRESSION: Stable cardiomegaly
[2023-12-12] MEDS: midodrine 5 mg TABLET 10 MG PO ×3 (09:09→20:26)
[2023-12-12 09:14] LABS: Anion Gap 15.3 (5-19); Blood Urea Nitrogen 49 mg/dL (6-20); Calcium 8.8 mg/dL (8.5-10.5); Carbon Dioxide 30 mmol/L (22-29); Chloride 96 mmol/L (98-107); Creatinine Clr Calc Pharmacy 62.8002; Glomerular Filtration Rate 47.9 mL/min (90-130); Glucose 77 mg/dL (65-115); Osmolality Calculated 298 mOsm/kg (285-295); Potassium 3.3 mmol/L (3.5-5.1); Sodium 138 mmol/L (136-145)
--- NOTE | 2023-12-12 09:15 | PM.PN ---
Subjective Subjective: BP dropped this Am lethargic being moved to ICU Medications: Reviewed: Yes Vitals/I&O/Wt Last Vital Signs Temp 98.0 F 12/12/23 07:58 Pulse 64 12/12/23 08:21 Resp 18 12/12/23 08:21 BP 87/64 12/12/23 07:58 Pulse Ox 97 12/12/23 08:21 O2 Del Method BiPAP 12/12/23 08:21 FiO2 28 12/12/23 08:21 12/11/23 12/12/23 12/12/23 22:59 06:59 14:59 Intake Total 360 / 4456.212 8433.333 / 2825.000 Output Total 150 / 150 Balance 360 / 1801.667 873.333 / 2675.000 Weight last 48 hrs Weight 117.084 kg Weight 117.084 kg Weight 115.711 kg Weight 115.711 kg Physical Exam Narrative: awake , alert heent s1s2 rrr per report lungs clear per report no edema Data 12/11/23 04:26 12/12/23 08:15 Micro: Microbiology 12/09/23 10:53 Urine Culture - Final Urine,Clean Catch Serratia marcescens A&P Assessment and plan (1) Chronic kidney disease: (2) CAPRI (acute kidney injury): Plan 1. Acute on chronic kidney disease stage III: Baseline creatinine is in the mid 1 range, patient has multiple CAPRI's in the past and also required temporary dialysis. Now has an CAPRI with a creatinine of 2.2 likely secondary to decreased p.o. intake and secondary to meds including ARB, metolazone and Lasix. -Will hold diuretics temporarily, continue to monitor renal function, BMP pending today -No obstruction on CT, 2. Possible digoxin toxicity, bradycardia was noted prior to presentation here. Avoid digoxin if possible, given known CKD and history of multiple CAPRI's. 3. Hypokalemia replete 4. Cystitis 5. Nonobstructing kidney stones, urology referral as outpatient 6. Shock : ? etiology , work up pending - CXR , Blood cultures pending Patient evaluated using audiovisual cart. Time spent 40 minutes. Attestations Medical Necessity Statement*: per medicine Coding Level of Care Code Acute Code for [facility] Diagnoses Chronic kidney disease N18.9 CAPRI (acute kidney injury) N17.9
[2023-12-12 09:29] LABS: Basophils # 0.1 10^3/uL (0.0-0.1); Eosinophils # 0.4 10^3/uL (0.0-0.8); Eosinophils % 5.3 %; Hematocrit 49.1 % (37-53); Lymphocytes # 1.4 10^3/uL (0.8-4.8); Lymphocytes % 20.9 %; Mean Corpuscular HGB Conc 29.3 g/dL (30-55); Mean Corpuscular Hemoglobin 25.4 pg (27-33); Mean Corpuscular Volume 86.6 fl (82-101); Mean Platelet Volume 10.5 fL (7.4-10.4); Monocytes % 14.9 %; Neutrophils # 3.91 10^3/uL (1.8-7.7); Neutrophils % 57.5 %; Nucleated Red Blood Cells % 0 %; Platelet Count 314 10^3/cmm (157-399); Red Blood Count 5.67 10^6/uL (3.85-5.65); Red Cell Distribution Width 19.7 % (12.1-15.1)
--- NOTE | 2023-12-12 09:34 | PC.NURSE ---
CUSTOMER DATA TECHNICIAN in with patient obtaining vital signs. Patients blood pressure reported to be 87/64. This nurse went in to assess patient and assess patients BP. Pressure this time was 51/28. Manual BP was not able to be obtained. Dr Dunne notified, orders to transfer to ICU. Torsten miller notified ICU bed assigned. Patient lying flat, BP finally obtained 100/69. Others orders placed by Dr Dunne and will be followed out by the ICU nurse. Patient safely transferred to ICU and bedside report was given.
--- NOTE | 2023-12-12 09:44 | ECG_ITS ---
[facility] Test Date: 2023-12-12 Pat Name: Param Tejada Department: Room: ICU10 Gender: Male Milk Vendor: : 1965 Requested By: Tri Dunne Order Number: [id number] Recio MD: Juan Carlos Peña M.D. Measurements Intervals [place] Rate: 59 P: 0 WI: 0 QRS: -79 QRSD: 249 T: 0 QT: 567 QTc: 566 Interpretive Statements ELECTRONIC VENTRICULAR PACEMAKER PROLONGED QT INTERVAL CRITICAL TEST RESULT Compared to ECG 12/10/2023 18:16:36 No significant changes Electronically Signed On 12-12-2023 23:01:50 CDT by Juan Carlos Peña M.D. [email or web address]
[2023-12-12 09:48] LABS: Cortisol Random 14.55 ug/dL (2.47-19.5)
[2023-12-12 09:49] LABS: Troponin(5th) Baseline 207 ng/L (0-15)
[2023-12-12 10:01] LABS: Magnesium 2.9 mg/dL (1.7-2.3)
[2023-12-12] MEDS: insulin glargine 100 units/1 mL 25 UNIT SUBCUT (10:15)
[2023-12-12] MEDS: polyethylene glycol 3350 Pkt 17 gm PO (10:16)
[2023-12-12] MEDS: levothyroxine 50 mcg Tablet 75 MCG PO (10:16)
[2023-12-12] MEDS: cefTRIAXone 1,000 MG in sodium chloride 0.9% (plus) 50 ML 100 MG IV (10:16)
[2023-12-12] MEDS: pantoprazole DR 40 mg Tablet PO (10:16)
[2023-12-12] MEDS: gabapentin 300 mg Capsule PO ×3 (10:16→20:26)
[2023-12-12 10:34] LABS: Lactate (Lactic Acid level) 1.5 mmol/L (0.5-2.2)
[2023-12-12 10:35] LABS: Troponin 5 2HR Delta 0.5 ABS# (0-10)
[2023-12-12 10:40] LABS: Troponin 5 2HR 207.5 ng/L (0-15)
--- NOTE | 2023-12-12 10:44 | PM.PN ---
Subjective Subjective: Patient had a hypotensive episode. Was transferred to ICU. BP has recovered. Denies chest pain Vitals/I&O/Wt Last Vital Signs Temp 98.0 F 12/12/23 07:58 Pulse 64 12/12/23 08:21 Resp 18 12/12/23 08:21 BP 87/64 12/12/23 07:58 Pulse Ox 97 12/12/23 08:21 O2 Del Method BiPAP 12/12/23 08:21 FiO2 28 12/12/23 08:21 12/11/23 12/12/23 12/12/23 22:59 06:59 14:59 Intake Total 360 / 7851.276 7547.333 / 2825.000 240 / 240 Output Total 150 / 150 Balance 360 / 1801.667 873.333 / 2675.000 240 / 240 Weight last 48 hrs Weight 258 lb 2 oz Weight 258 lb 2 oz Weight 255 lb 1.6 oz Weight 255 lb 1.6 oz Physical Exam Narrative: GENERAL: Patient is alert, awake and oriented x3. [] NECK: No jugular vein distension. [] HEENT: No cyanosis. No icterus. No pallor. [] HEART: Regular S1 and S2. No murmur, rub or gallop. [] LUNGS: Diminished air entry CENTRAL NERVOUS SYSTEM: Grossly nonfocal. [] EXTREMITIES: Lower extremities with 1+ edema bilaterally. Data 12/13/23 06:00 12/13/23 06:00 Micro: Microbiology 12/12/23 10:07 Blood Culture - Preliminary Blood SPECIMEN COLLECTED 12/12/23 10:05 Blood Culture - Preliminary Blood SPECIMEN COLLECTED 12/09/23 10:53 Urine Culture - Final Urine,Clean Catch Serratia marcescens A&P Assessment and plan (1) Troponin level elevated: (2) Hypertension: Qualifiers: Hypertension type: essential hypertension Qualified Code(s): I10 - Essential (primary) hypertension (3) Hyperlipidemia: (4) ICD (implantable cardioverter-defibrillator) in place: (5) CAD (coronary artery disease): (6) CHF (congestive heart failure): (7) Ischemic cardiomyopathy: Plan Patient had an episode of hypotension today. His troponins have not trended up significantly. Repeat echocardiogram with contrast to have accurate EF assessment. If there is significant decrease from before, can assess with stress test. Otherwise medical management. Thank you for involving us with care of this patient. We will continue to follow. Please call with questions. Attestations Medical Necessity Statement*: Care expected to cross 2 midnights. Coding Level of Care Code Acute Code for Chg Fwd Diagnoses Troponin level elevated R79.89 Essential hypertension I10 Hypertension type: essential hypertension Hyperlipidemia, unspecified hyperlipidemia type E78.5 ICD (implantable cardioverter-defibrillator) in place Z95.810 Coronary artery disease involving [place] coronary artery of [place] heart without angina pectoris I25.10 Acute on chronic systolic congestive heart failure I50.9 Ischemic cardiomyopathy I25.5
--- NOTE | 2023-12-12 10:55 | ECG_ITS ---
[facility] Test Date: 2023-12-12 Pat Name: Param Tejada Department: Room: ICU10 Gender: Male Seconds Handler: : [id number] Requested By: Tri Dunne Order Number: [id number] Recio MD: Juan Carlos Peña M.D. Measurements Intervals [place] Rate: 60 P: 0 MT: 0 QRS: -81 QRSD: 233 T: 89 QT: 564 QTc: 564 Interpretive Statements ELECTRONIC VENTRICULAR PACEMAKER PROLONGED QT INTERVAL CRITICAL TEST RESULT Compared to ECG 12/12/2023 09:44:39 No significant changes Electronically Signed On 12-12-2023 23:12:40 CDT by Juan Carlos Peña M.D. [email or web address]
[2023-12-12 11:04] LABS: Glucose Point of Care 90 mg/dL (70-110)
--- NOTE | 2023-12-12 12:02 | PM.PN ---
Subjective Subjective: Seen today in the ICU. Earlier today patient had an episode of hypotension with lowest recorded blood pressure 50/21 however we question the accuracy of that. Mandible was unable to obtain at that time. Patient was slightly somnolent however upon sitting down and subsequently laying down blood pressure was rechecked and it was 100/60. Patient had not received his midodrine this morning. He felt okay. When seen in ICU patient was sleeping. Blood pressure stable. Heart rate stable. This morning secondary to hypotensive event, troponin series and EKG ordered, lactic acid ordered, blood cultures ordered. Patient transferred to ICU for further management. Normal saline 500 cc bolus ordered as well. Limited contrast echo ordered. Discussed with cardiology as well. Vitals/I&O/Wt Last Vital Signs Temp 98.0 F 12/12/23 07:58 Pulse 64 12/12/23 08:21 Resp 18 12/12/23 08:21 BP 87/64 12/12/23 07:58 Pulse Ox 97 12/12/23 08:21 O2 Del Method BiPAP 12/12/23 08:21 FiO2 28 12/12/23 08:21 12/11/23 12/12/23 12/12/23 22:59 06:59 14:59 Intake Total 360 / 8008.984 4295.333 / 2825.000 240 / 240 Output Total 150 / 150 Balance 360 / 1801.667 873.333 / 2675.000 240 / 240 Weight last 48 hrs Weight 117.084 kg Weight 117.084 kg Weight 115.711 kg Weight 115.711 kg Physical Exam Narrative: General: Alert oriented x3, patient seen sitting up edge of bed HEENT: Normocephalic, atraumatic, EOMI, breathing comfortably on room air Cardio: Regular rate rhythm, normal S1-S2, Respiratory: Good bilateral air entry, no wheezes no rhonchi appreciated GI: Abdomen soft, nontender, nondistended, bowel sounds + Behavior: Appropriate and cooperative Extremities: no edema, no cyanosis Data 12/12/23 04:50 12/12/23 08:15 Micro: Microbiology 12/12/23 10:07 Blood Culture - Preliminary Blood SPECIMEN COLLECTED 12/12/23 10:05 Blood Culture - Preliminary Blood SPECIMEN COLLECTED 12/09/23 10:53 Urine Culture - Final Urine,Clean Catch Serratia marcescens A&P Assessment and plan (1) Ischemic cardiomyopathy: (2) CHF (congestive heart failure): (3) CAD (coronary artery disease): (4) ICD (implantable cardioverter-defibrillator) in place: (5) Hyperlipidemia: (6) Hypothyroidism: (7) Diabetes mellitus, type II, insulin dependent: (8) CAPRI (acute kidney injury): (9) COPD (chronic obstructive pulmonary disease): (10) Chronic hypercapnic respiratory failure: (11) Obstructive sleep apnea: (12) Digoxin toxicity: Plan #Weakness #Acute kidney injury on CKD #Nausea #Supratherapeutic digoxin level #Chronic systolic diastolic dysfunction with EF 36% #Chronic hypotension, on midodrine #UTI #Hypothyroidism #History of multiorgan failure, requiring temporary dialysis in August 2023 #Chronic COPD #Renal calculus #History of CAD #History of CKD stage II #Insulin-dependent diabetes mellitus #Hyperlipidemia #History of STEMI - Check blood culture, urine culture ? Digoxin level 2.1 on admission. Digoxin has been stopped. Will recheck in AM. ? Vitals are stable as of now we will continue to monitor ? Hold carvedilol ? Continue midodrine, aspirin ? Continue levothyroxine 75 daily. Will need to repeat TSH in 4 to 6 weeks ? DuoNeb every 4 hours as needed ? Continue home gabapentin reduced dose secondary to CAPRI ? Continue Rocephin 1 g daily ? ICD in place. Will interrogate ? I will hold metolazone but continue furosemide today. ? Lactic acidosis on admission has resolved with IV fluids ? CAPRI on CKD. Baseline creatinine 1.5-1.8 range. On admission 2.2. Metolazone has been held. Patient did report decreased urine output last few days. Potassium high along with magnesium and abnormal urinalysis on admission. History of rhabdomyolysis this year. Continue to monitor. Consult nephrology -Patient may need to go [facility] at time of discharge. However will order physical therapy consult and reevaluate for that once medically stable for discharge. - baseline trop 273. no other trops available - recheck trop series and serial ekgs, pt not complaining of any chest pain, - Possible NSTEMI? - delta trop 20, start heparin drip. check echo, consult cardiology. pt is a very poor historian - dig level 1.3 this morning - cardiology consulted: appreciate recs. stop heparin drip, - recheck trop series continue to monitor in icu continue midodrine check sepsis workup, bcx, lactate, cbc cmp Full code DVT prophylaxis: Heparin SQ twice daily Attestations Medical Necessity Statement*: Greater than 2 midnight stay for management of UTI, supratherapeutic digoxin levels, CAPRI Diagnoses Ischemic cardiomyopathy I25.5 Acute on chronic systolic congestive heart failure I50.9 Coronary artery disease involving [place] coronary artery of [place] heart without angina pectoris I25.10 ICD (implantable cardioverter-defibrillator) in place Z95.810 Hyperlipidemia, unspecified hyperlipidemia type E78.5 Hypothyroidism E03.9 Diabetes mellitus, type II, insulin dependent E11.9; Z79.4 CAPRI (acute kidney injury) N17.9 COPD (chronic obstructive pulmonary disease) J44.9 Chronic hypercapnic respiratory failure J96.12 Obstructive sleep apnea G47.33 Digoxin toxicity T46.0X1A
--- NOTE | 2023-12-12 15:05 | ECG_ITS ---
[facility] Test Date: 2023-12-12 Pat Name: Param Tejada Department: Room: ICU10 Gender: Male Awning Maker: : 1965 Requested By: Tri Dunne Order Number: [id number] Recio MD: Juan Carlos Peña M.D. Measurements Intervals [place] Rate: 60 P: 0 ND: 0 QRS: -83 QRSD: 216 T: 91 QT: 367 QTc: 367 Interpretive Statements ELECTRONIC VENTRICULAR PACEMAKER ABNORMAL RHYTHM ECG Compared to ECG 12/12/2023 10:55:09 Prolonged QT interval no longer present Electronically Signed On 12-12-2023 23:16:47 CDT by Juan Carlos Peña M.D. [id number]
[2023-12-12 15:22] LABS: Troponin 5 6HR Delta -12.8 ng/L (0-12)
[2023-12-12 15:25] LABS: Troponin 5 6HR 194.2 ng/L (0-15)
[2023-12-12 18:16] LABS: Glucose Point of Care 497 mg/dL (70-110)
[2023-12-12] MEDS: insulin lispro 100 unit/1 mL SUBCUT ×2 (18:34→20:32)
[2023-12-12 20:07] LABS: Glucose Point of Care 212 mg/dL (70-110)
[2023-12-12] MEDS: sennosides-docusate Tablet 1 TAB PO (20:26)
--- NOTE | 2023-12-12 22:09 | PC.NURSE ---
pt care assumed care of pt at this time. pt a&o x3 at this time. pt wanted bi pap placed at this time, this nurse placed mask and pt was comfortable when this nurse exited room.
[2023-12-13] VITALS (23 sets, daily range): BP systolic 109–160; BP diastolic 76–104; PULSE 60–72; RESP 14–30; TEMP 36.4–36.8; O2SAT 60–97
--- NOTE | 2023-12-13 00:33 | PC.NURSE ---
pt turn and position. pt moved up in bed and positioned.
--- NOTE | 2023-12-13 02:23 | PC.NURSE ---
pt care pt cleaned and bedding changed at this time. pt complaing of 10/10 back pain.
[2023-12-13] MEDS: acetaminophen 325 mg Tablet 650 MG PO (02:29)
[2023-12-13] MEDS: sodium chloride 0.9% 1,000 ML 50 ML IV (02:41)
--- NOTE | 2023-12-13 04:43 | PC.NURSE ---
positive blood culture results order given to repeat bc.
[2023-12-13] MEDS: aspirin 81 mg EC Tablet PO (06:01)
[2023-12-13] MEDS: vancomycin 2,000 MG/400 ML PIGGYBACK 200 MG IV (06:01)
[2023-12-13 06:21] LABS: Basophils # 0.1 10^3/uL (0.0-0.1); Basophils % 0.8 %; Eosinophils # 0.3 10^3/uL (0.0-0.8); Eosinophils % 3.6 %; Lymphocytes # 1.8 10^3/uL (0.8-4.8); Lymphocytes % 21.4 %; Mean Corpuscular HGB Conc 29.6 g/dL (30-55); Mean Corpuscular Hemoglobin 24.8 pg (27-33); Mean Corpuscular Volume 83.8 fl (82-101); Mean Platelet Volume 10.4 fL (7.4-10.4); Monocytes # 1.2 10^3/uL (0.2-0.9); Monocytes % 14.4 %; Neutrophils # 4.95 10^3/uL (1.8-7.7); Neutrophils % 59.6 %; Nucleated Red Blood Cells % 0 %; Platelet Count 333 10^3/cmm (157-399); Red Blood Count 5.73 10^6/uL (3.85-5.65); Red Cell Distribution Width 19.1 % (12.1-15.1); White Blood Count 8.32 10^3/uL (3.29-11.43)
--- NOTE | 2023-12-13 06:31 | PC.NURSE ---
pt transfer of care pt transported from icu to [facility] via bed at approx 0630. eliel francois accepted care of pt at this time. belongings with pt upon transfer. pt in stable condition.
--- NOTE | 2023-12-13 06:32 | PC.NURSE ---
Patient received from ICU by bed at this time.
[2023-12-13 06:38] LABS: Alanine Aminotransferase 11 U/L (0-41); Albumin Level 3.3 g/dL (3.5-5.2); Alkaline Phosphatase 74 U/L (40-130); Anion Gap 14.8 (5-19); Aspartate Amino Transferase 17 U/L (0-40); Blood Urea Nitrogen 45 mg/dL (6-20); Calcium 8.7 mg/dL (8.5-10.5); Carbon Dioxide 29 mmol/L (22-29); Chloride 98 mmol/L (98-107); Creatinine Clr Calc Pharmacy 68.4341; Globulin 3.5 g/dL (1.3-4.6); Glomerular Filtration Rate 51.9 mL/min (90-130); Glucose 50 mg/dL (65-115); Osmolality Calculated 297 mOsm/kg (285-295); Sodium 139 mmol/L (136-145); Total Bilirubin 0.5 mg/dL (0.15-1.2); Total Protein 6.8 g/dL (6.6-8.7)
[2023-12-13 06:43] LABS: Potassium 2.8 mmol/L (3.5-5.1)
[2023-12-13 07:03] LABS: Glucose Point of Care 88 mg/dL (70-110)
--- NOTE | 2023-12-13 07:46 | USCV_ITS ---
Param Tejada Age: 58 Gender: M : 1965 Exam Date: 12/13/2023 08:14 Ordering Phys: Tri Dunne MD Technologist: ALEXIA Exam Location: [facility] [place] Indication: EF, RWMA BP: 124 / 77 HR: 60 Rhythm: Sinus Technical Quality: Adequate MEASUREMENTS (Male / Female) Normal Values 2D ECHO LV Ejection Fraction MOD 2C 34.3 % LV Ejection Fraction 2C AL 33.2 % FINDINGS Left Ventricle Right Ventricle Right Atrium Left Atrium Mitral Valve Aortic Valve Tricuspid Valve Pulmonic Valve Pericardium Aorta IVC CONCLUSIONS Limited echocardiogram performed to assess LV systolic function LV systolic function is moderate to severely reduced with EF of 34% Regional wall motion abnormalities can not be accurately assessed because of poor ultrasonic windows Alverto Qureshi MD (Electronically Signed) Final Date: 13 Dec 2023 10:02 S
--- NOTE | 2023-12-13 07:54 | PM.PN ---
Subjective Subjective: Patient had blood cultures positive for gram-positive bacteria.(2/3 bottles). Repeat culture sent. Vitals/I&O/Wt Last Vital Signs Temp 97.7 F 12/13/23 02:57 Pulse 60 12/13/23 07:52 Resp 17 12/13/23 07:52 BP 109/76 12/13/23 07:52 Pulse Ox 91 12/13/23 04:30 O2 Del Method BiPAP 12/12/23 08:21 FiO2 28 12/13/23 00:00 12/12/23 12/13/23 12/13/23 22:59 06:59 14:59 Intake Total 240 / 480 1110 / 1590 Output Total 225 / 225 200 / 425 Balance 15 / 255 910 / 1165 Weight last 48 hrs Weight 266 lb Weight 258 lb 2 oz Weight 258 lb 2 oz Physical Exam Narrative: GENERAL: Patient is alert, awake and oriented x3. [] NECK: No jugular vein distension. [] HEENT: No cyanosis. No icterus. No pallor. [] HEART: Regular S1 and S2. No murmur, rub or gallop. [] LUNGS: Diminished air entry CENTRAL NERVOUS SYSTEM: Grossly nonfocal. [] EXTREMITIES: Lower extremities with 1+ edema bilaterally. Data 12/13/23 06:00 12/14/23 08:23 Micro: Microbiology 12/13/23 06:00 Blood Culture - Preliminary Blood SPECIMEN COLLECTED 12/13/23 06:00 Blood Culture - Preliminary Blood SPECIMEN COLLECTED 12/12/23 10:05 Blood Culture - Preliminary Blood 12/12/23 10:07 Blood Culture - Preliminary Blood SPECIMEN COLLECTED A&P Assessment and plan (1) Troponin level elevated: (2) Hypertension: Qualifiers: Hypertension type: essential hypertension Qualified Code(s): I10 - Essential (primary) hypertension (3) Hyperlipidemia: (4) ICD (implantable cardioverter-defibrillator) in place: (5) CAD (coronary artery disease): (6) CHF (congestive heart failure): (7) Ischemic cardiomyopathy: Plan Patient's EF on repeat echo was similar to before. Continue medical therapy. Blood cultures are positive for gram-positive cocci. Repeat cultures sent. Antibiotic therapy per primary team. If no other source of infection, may need NANCY Thank you for involving us with care of this patient. We will continue to follow. Please call with questions. Attestations Medical Necessity Statement*: Care expected to cross 2 midnights. Coding Level of Care Code Acute Code for Chg Fwd Diagnoses Troponin level elevated R79.89 Essential hypertension I10 Hypertension type: essential hypertension Hyperlipidemia, unspecified hyperlipidemia type E78.5 ICD (implantable cardioverter-defibrillator) in place Z95.810 Coronary artery disease involving [place] coronary artery of [place] heart without angina pectoris I25.10 Acute on chronic systolic congestive heart failure I50.9 Ischemic cardiomyopathy I25.5
[2023-12-13] MEDS: potassium chloride ER 20 mEq Tablet 40 MEQ PO ×2 (08:16→11:48)
[2023-12-13] MEDS: gabapentin 300 mg Capsule PO ×3 (08:20→21:57)
[2023-12-13] MEDS: midodrine 5 mg TABLET 10 MG PO ×3 (08:20→21:57)
[2023-12-13] MEDS: pantoprazole DR 40 mg Tablet PO (08:20)
[2023-12-13] MEDS: levothyroxine 50 mcg Tablet 75 MCG PO (08:20)
[2023-12-13] MEDS: perflutren protein-a microsphr 0.22 mg/mL SDV 3 mL IV (09:01)
[2023-12-13] MEDS: piperacillin-tazobactam 3.375 GM in sodium chloride 0.9% (plus) 50 ML IV ×2 (10:21→17:09)
[2023-12-13] MEDS: polyethylene glycol 3350 Pkt 17 gm PO (10:21)
[2023-12-13 10:46] LABS: Glucose Point of Care 104 mg/dL (70-110)
--- NOTE | 2023-12-13 11:10 | P.PN_ITS ---
Subjective 2 Subjective: on bipap Medications: Reviewed: Yes Vitals/I&O/Wt Last Vital Signs Temp 97.7 F 12/13/23 02:57 Pulse 60 12/13/23 09:00 Resp 24 H 12/13/23 09:00 BP 109/76 12/13/23 07:52 Pulse Ox 94 12/13/23 09:00 O2 Del Method BiPAP 12/13/23 09:00 O2 Flow Rate 28 12/13/23 09:00 FiO2 28 12/13/23 08:57 12/12/23 12/13/23 12/13/23 22:59 06:59 14:59 Intake Total 240 / 480 1110 / 1590 400 / 400 Output Total 225 / 225 200 / 425 Balance 15 / 255 910 / 1165 400 / 400 Weight last 48 hrs Weight 120.656 kg Weight 117.084 kg Weight 117.084 kg Physical Exam 2 Narrative: awake , alert heent s1s2 rrr per report lungs clear per report no edema Data 12/13/23 06:00 12/13/23 06:00 Micro: Microbiology 12/12/23 10:07 Blood Culture - Preliminary Blood NEGATIVE TO DATE 12/12/23 10:05 Blood Culture - Preliminary Blood Staphylococcus species 12/13/23 06:00 Blood Culture - Preliminary Blood SPECIMEN COLLECTED 12/13/23 06:00 Blood Culture - Preliminary Blood SPECIMEN COLLECTED A&P Assessment and plan (1) Chronic kidney disease: (2) CAPRI (acute kidney injury): Plan 1. Acute on chronic kidney disease stage III: Baseline creatinine is in the mid 1 range, patient has multiple CAPRI's in the past and also required temporary dialysis. creatinine worsened to 2.2 likely secondary to decreased p.o. intake and secondary to meds including ARB, metolazone and Lasix. -Will hold diuretics temporarily, continue to monitor renal function, Cr 1.4 today , stable -No obstruction on CT, 2. Possible digoxin toxicity, bradycardia was noted prior to presentation here. Avoid digoxin if possible, given known CKD and history of multiple CAPRI's. 3. Hypokalemia replete 4. Cystitis 5. Nonobstructing kidney stones, urology referral as outpatient 6. Hypokalemia : replete Patient evaluated using audiovisual cart. Time spent 20 minutes. Attestations 2 Medical Necessity Statement*: per [facility] Coding Level of Care Code Acute Code for Chg Fwd Diagnoses Chronic kidney disease N18.9 CAPRI (acute kidney injury) N17.9
--- NOTE | 2023-12-13 13:22 | PC.SOCIAL ---
IMM updated Updated pt on IMM. No questions voiced. Provided pt a copy. Initialed, dated, & timed copy in chart.
--- NOTE | 2023-12-13 15:02 | P.PN_ITS ---
Subjective 2 Subjective: Seen today. 2/3 bottles positive for gram-positive c occi in clusters. Says he is unable to pee. Requesting Burciaga catheter. Potassium 2.8 this morning. Patient was started on vancomycin overnight by night hospitalist. Potassium also ordered. Vitals/I&O/Wt Last Vital Signs Temp 97.5 F L 12/13/23 12:00 Pulse 61 12/13/23 14:01 Resp 18 12/13/23 12:00 BP 116/96 12/13/23 12:00 Pulse Ox 96 12/13/23 14:01 O2 Del Method Nasal Cannula 12/13/23 12:00 O2 Flow Rate 28 12/13/23 09:00 FiO2 28 12/13/23 14:01 12/13/23 12/13/23 12/13/23 06:59 14:59 22:59 Intake Total 1110 / 1590 400 / 400 Output Total 200 / 425 Balance 910 / 1165 400 / 400 Weight last 48 hrs Weight 120.656 kg Weight 117.084 kg Weight 117.084 kg Physical Exam 2 Narrative: General: Alert oriented x3, patient seen sitting up edge of bed HEENT: Normocephalic, atraumatic, EOMI, breathing comfortably on room air Cardio: Regular rate rhythm, normal S1-S2, Respiratory: Good bilateral air entry, no wheezes no rhonchi appreciated GI: Abdomen soft, nontender, nondistended, bowel sounds + Behavior: Appropriate and cooperative Extremities: no edema, no cyanosis Skin: No open sores noted. Data 12/13/23 06:00 12/13/23 06:00 Micro: Microbiology 12/12/23 10:07 Blood Culture - Preliminary Blood NEGATIVE TO DATE 12/12/23 10:05 Blood Culture - Preliminary Blood Staphylococcus species 12/13/23 06:00 Blood Culture - Preliminary Blood SPECIMEN COLLECTED 12/13/23 06:00 Blood Culture - Preliminary Blood SPECIMEN COLLECTED A&P Assessment and plan (1) Ischemic cardiomyopathy: (2) CHF (congestive heart failure): (3) CAD (coronary artery disease): (4) ICD (implantable cardioverter-defibrillator) in place: (5) Hyperlipidemia: (6) Hypothyroidism: (7) Diabetes mellitus, type II, insulin dependent: (8) CAPRI (acute kidney injury): (9) COPD (chronic obstructive pulmonary disease): (10) Chronic hypercapnic respiratory failure: (11) Obstructive sleep apnea: (12) Digoxin toxicity: Plan #Weakness #Acute kidney injury on CKD #Nausea #Supratherapeutic digoxin level #Chronic systolic diastolic dysfunction with EF 36% #Chronic hypotension, on midodrine #UTI #Hypothyroidism #History of multiorgan failure, requiring temporary dialysis in August 2023 #Chronic COPD #Renal calculus #History of CAD #History of CKD stage II #Insulin-dependent diabetes mellitus #Hyperlipidemia #History of STEMI - Check blood culture, urine culture ? Digoxin level 2.1 on admission. Digoxin has been stopped. Will recheck in AM. ? Vitals are stable as of now we will continue to monitor ? Hold carvedilol ? Continue midodrine, aspirin ? Continue levothyroxine 75 daily. Will need to repeat TSH in 4 to 6 weeks ? DuoNeb every 4 hours as needed ? Continue home gabapentin reduced dose secondary to CAPRI ? Continue Rocephin 1 g daily ? ICD in place. Will interrogate ? I will hold metolazone but continue furosemide today. ? Lactic acidosis on admission has resolved with IV fluids ? CAPRI on CKD. Baseline creatinine 1.5-1.8 range. On admission 2.2. Metolazone has been held. Patient did report decreased urine output last few days. Potassium high along with magnesium and abnormal urinalysis on admission. History of rhabdomyolysis this year. Continue to monitor. Consult nephrology -Patient may need to go back to [facility] for acute rehab at time of discharge. However will order physical therapy consult and reevaluate for that once medically stable for discharge. - baseline trop 273. no other trops available - recheck trop series and serial ekgs, pt not complaining of any chest pain, - Possible NSTEMI? - delta trop 20, start heparin drip. check echo, consult cardiology. pt is a very poor historian - dig level 1.3 this morning - cardiology consulted: appreciate recs. stop heparin drip, - recheck trop series continue to monitor in icu continue midodrine check sepsis workup, bcx, lactate, cbc cmp Full code DVT prophylaxis: Heparin SQ twice daily Today's plan 12/12 ? Blood culture positive for gram-positive cocci in clusters, final speciation and sensitivity pending ? Repeat blood cultures today ? Continue vancomycin ? Replete potassium ? Cardiology on board, nephrology on board ? Check urine culture, sputum culture Gram stain induce ? Place Burciaga catheter ? Attestations 2 Medical Necessity Statement*: Will need continued hospitalization for management of bacteremia Diagnoses Ischemic cardiomyopathy I25.5 Acute on chronic systolic congestive heart failure I50.9 Coronary artery disease involving [place] coronary artery of [place] heart without angina pectoris I25.10 ICD (implantable cardioverter-defibrillator) in place Z95.810 Hyperlipidemia, unspecified hyperlipidemia type E78.5 Hypothyroidism E03.9 Diabetes mellitus, type II, insulin dependent E11.9; Z79.4 CAPRI (acute kidney injury) N17.9 COPD (chronic obstructive pulmonary disease) J44.9 Chronic hypercapnic respiratory failure J96.12 Obstructive sleep apnea G47.33 Digoxin toxicity T46.0X1A
[2023-12-13 16:38] LABS: Glucose Point of Care 236 mg/dL (70-110)
[2023-12-13] MEDS: insulin lispro 100 unit/1 mL SUBCUT ×2 (17:10→21:57)
[2023-12-13 21:14] LABS: Glucose Point of Care 182 mg/dL (70-110)
[2023-12-14] VITALS (16 sets, daily range): BP systolic 111–130; BP diastolic 70–99; PULSE 60–81; RESP 15–23; TEMP 36.3–36.6; O2SAT 91–100
[2023-12-14] MEDS: piperacillin-tazobactam 3.375 GM in sodium chloride 0.9% (plus) 50 ML IV ×3 (01:06→18:02)
[2023-12-14] MEDS: aspirin 81 mg EC Tablet PO (05:35)
[2023-12-14] MEDS: vancomycin 1,750 MG/350 ML PIGGYBACK 233.330000000000013 MG IV (05:35)
[2023-12-14 06:24] LABS: Glucose Point of Care 127 mg/dL (70-110)
--- NOTE | 2023-12-14 07:27 | P.PN_ITS ---
Subjective 2 Subjective: no new complaints Medications: Reviewed: Yes Vitals/I&O/Wt Last Vital Signs Temp 97.3 F L 12/14/23 04:00 Pulse 60 12/14/23 07:24 Resp 17 12/14/23 07:24 BP 113/84 12/14/23 07:24 Pulse Ox 97 12/14/23 07:24 O2 Del Method BiPAP 12/14/23 07:24 O2 Flow Rate 28 12/13/23 09:00 FiO2 28 12/14/23 04:00 12/13/23 12/14/23 12/14/23 22:59 06:59 14:59 Intake Total 1403.333 / 1853.333 350 / 2203.333 Output Total 400 / 400 Balance 1403.333 / 1853.333 -50 / 1803.333 Weight last 48 hrs Weight 122.016 kg Weight 120.656 kg Physical Exam 2 Narrative: awake , alert heent s1s2 rrr per report lungs clear per report no edema Urinary Catheter Management: Burciaga: Cath Placed During This Visit: yes Reason for Continuing Indwelling Catheter: Acute Urinary Retention or Obstruction Urinary Catheter Date of Insertion: 12/13/23 Urinary Catheter Time of Insertion: 10:30 Data 12/13/23 06:00 12/14/23 08:23 Micro: Microbiology 12/13/23 06:00 Blood Culture - Preliminary Blood NEGATIVE TO DATE 12/13/23 06:00 Blood Culture - Preliminary Blood NEGATIVE TO DATE 12/12/23 10:07 Blood Culture - Preliminary Blood NEGATIVE TO DATE 12/12/23 10:05 Blood Culture - Preliminary Blood Staphylococcus species A&P Assessment and plan (1) Chronic kidney disease: (2) CAPRI (acute kidney injury): Plan 1. Acute on chronic kidney disease stage III: Baseline creatinine is in the mid 1 range, patient has multiple CAPRI's in the past and also required temporary dialysis. creatinine worsened to 2.2 likely secondary to decreased p.o. intake and secondary to meds including ARB, metolazone and Lasix. -Will hold diuretics temporarily, continue to monitor renal function, -No obstruction on CT, 2. Possible digoxin toxicity, bradycardia was noted prior to presentation here. Avoid digoxin if possible, given known CKD and history of multiple CAPRI's. 3. Hypokalemia replete 4. Cystitis 5. Nonobstructing kidney stones, urology referral as outpatient 6. Hypokalemia : repleted Patient evaluated using audiovisual cart. Time spent 20 minutes. Attestations 2 Medical Necessity Statement*: per medicine team Coding Level of Care Code Acute Code for Chg Fwd Diagnoses Chronic kidney disease N18.9 CAPRI (acute kidney injury) N17.9
[2023-12-14 08:58] LABS: Blood Urea Nitrogen 39 mg/dL (6-20); Calcium 8.7 mg/dL (8.5-10.5); Carbon Dioxide 23 mmol/L (22-29); Chloride 95 mmol/L (98-107); Glomerular Filtration Rate 51.9 mL/min (90-130); Glucose 111 mg/dL (65-115); Osmolality Calculated 286 mOsm/kg (285-295); Sodium 133 mmol/L (136-145)
[2023-12-14 09:12] LABS: Creatinine Clr Calc Pharmacy 68.8712
[2023-12-14] MEDS: levothyroxine 50 mcg Tablet 75 MCG PO (09:19)
[2023-12-14] MEDS: pantoprazole DR 40 mg Tablet PO (09:20)
[2023-12-14] MEDS: gabapentin 300 mg Capsule PO ×3 (09:20→21:09)
[2023-12-14] MEDS: midodrine 5 mg TABLET 10 MG PO ×3 (09:20→21:09)
[2023-12-14] MEDS: insulin glargine 100 units/1 mL 25 UNIT SUBCUT (09:30)
--- NOTE | 2023-12-14 09:44 | PM.PN ---
Subjective Subjective: Patient denies chest pain. Feeling sleepy. Vitals/I&O/Wt Last Vital Signs Temp 97.3 F L 12/14/23 04:00 Pulse 60 12/14/23 07:24 Resp 17 12/14/23 07:24 BP 113/84 12/14/23 07:24 Pulse Ox 97 12/14/23 07:24 O2 Del Method BiPAP 12/14/23 07:24 O2 Flow Rate 28 12/13/23 09:00 FiO2 28 12/14/23 04:00 12/13/23 12/14/23 12/14/23 22:59 06:59 14:59 Intake Total 1403.333 / 1853.333 350 / 2203.333 Output Total 400 / 400 Balance 1403.333 / 1853.333 -50 / 1803.333 Weight last 48 hrs Weight 269 lb Weight 266 lb Physical Exam Narrative: GENERAL: Patient is alert, awake and oriented x3. [] NECK: No jugular vein distension. [] HEENT: No cyanosis. No icterus. No pallor. [] HEART: Regular S1 and S2. No murmur, rub or gallop. [] LUNGS: Diminished air entry CENTRAL NERVOUS SYSTEM: Grossly nonfocal. [] EXTREMITIES: Lower extremities with 1+ edema bilaterally. Urinary Catheter Management: Burciaga: Cath Placed During This Visit: yes Reason for Continuing Indwelling Catheter: Acute Urinary Retention or Obstruction Urinary Catheter Date of Insertion: 12/13/23 Urinary Catheter Time of Insertion: 10:30 Data 12/13/23 06:00 12/14/23 08:23 Micro: Microbiology 12/13/23 06:00 Blood Culture - Preliminary Blood NEGATIVE TO DATE 12/13/23 06:00 Blood Culture - Preliminary Blood NEGATIVE TO DATE 12/12/23 10:07 Blood Culture - Preliminary Blood NEGATIVE TO DATE 12/12/23 10:05 Blood Culture - Preliminary Blood Staphylococcus species A&P Assessment and plan (1) Troponin level elevated: (2) Hypertension: Qualifiers: Hypertension type: essential hypertension Qualified Code(s): I10 - Essential (primary) hypertension (3) Hyperlipidemia: (4) ICD (implantable cardioverter-defibrillator) in place: (5) CAD (coronary artery disease): (6) CHF (congestive heart failure): (7) Ischemic cardiomyopathy: Plan Patient is overall stable from cardiac standpoint. He had blood cultures that were positive for gram-positive cocci. Repeat cultures pending. If repeat cultures are also positive and no source of infection, can consider NANCY to rule out endocarditis Thank you for involving us with care of this patient. We will continue to follow. Please call with questions. Attestations Medical Necessity Statement*: Care expected to cross 2 midnights. Coding Level of Care Code Acute Code for Chg Fwd Diagnoses Troponin level elevated R79.89 Essential hypertension I10 Hypertension type: essential hypertension Hyperlipidemia, unspecified hyperlipidemia type E78.5 ICD (implantable cardioverter-defibrillator) in place Z95.810 Coronary artery disease involving [place] coronary artery of [place] heart without angina pectoris I25.10 Acute on chronic systolic congestive heart failure I50.9 Ischemic cardiomyopathy I25.5
[2023-12-14 09:53] LABS: Glucose Point of Care 113 mg/dL (70-110)
[2023-12-14 11:43] LABS: Glucose Point of Care 141 mg/dL (70-110)
--- NOTE | 2023-12-14 12:15 | PC.NURSE ---
Insulin at 1200 was not given insulin even though sugar was 141 because he said he wasn't going to eat lunch.
--- NOTE | 2023-12-14 13:24 | XRR_ITS ---
PROCEDURE INFORMATION: Exam: XR Chest Exam date and time: 12/14/2023 2:04 PM Age: 58 years old Clinical indication: Shortness of breath TECHNIQUE: Imaging protocol: Radiologic exam of the chest. Views: 1 view. COMPARISON: CR XR chest 1V [id number] 09/16/2023 09:51 FINDINGS: Tubes, catheters and devices: There is a single lead pacemaker on the left side of the chest. Lungs: Unremarkable (when accounting for lordotic positioning of the chest). No consolidation. Pleural spaces: Unremarkable. No pleural effusion. No pneumothorax. Heart/Mediastinum: Stable cardiomegaly Bones/joints: Unremarkable. XR/XR chest 1V portable [id number] IMPRESSION: Stable cardiomegaly, otherwise clear chest
--- NOTE | 2023-12-14 13:57 | P.PN_ITS ---
Subjective 2 Subjective: Seen this morning. Patient is requiring BiPAP. He was not actively short of breath. Is 9 L positive since admission. Mother at bedside. She says he was recommended hospice when he was at [facility] previously. [facility] already. She thinks her son has already given up on life. Vitals/I&O/Wt Last Vital Signs Temp 97.3 F L 12/14/23 04:00 Pulse 60 12/14/23 11:27 Resp 16 12/14/23 11:27 BP 111/78 12/14/23 11:27 Pulse Ox 91 12/14/23 11:27 O2 Del Method BiPAP 12/14/23 11:27 O2 Flow Rate 28 12/13/23 09:00 FiO2 28 12/14/23 10:38 12/13/23 12/14/23 12/14/23 22:59 06:59 14:59 Intake Total 1403.333 / 1853.333 350 / 2203.333 590 / 590 Output Total 400 / 400 Balance 1403.333 / 1853.333 -50 / 1803.333 590 / 590 Weight last 48 hrs Weight 122.016 kg Weight 120.656 kg Physical Exam 2 Narrative: General: Alert oriented x3, patient seen sitting up edge of bed HEENT: Normocephalic, atraumatic, EOMI, breathing comfortably on room air Cardio: Regular rate rhythm, normal S1-S2, Respiratory: Good bilateral air entry, no wheezes no rhonchi appreciated GI: Abdomen soft, nontender, nondistended, bowel sounds + Behavior: Appropriate and cooperative Extremities: no edema, no cyanosis Skin: No open sores noted. Urinary Catheter Management: Burciaga: Cath Placed During This Visit: yes Reason for Continuing Indwelling Catheter: Acute Urinary Retention or Obstruction Urinary Catheter Date of Insertion: 12/13/23 Urinary Catheter Time of Insertion: 10:30 Data 12/13/23 06:00 12/14/23 08:23 Micro: Microbiology 12/13/23 11:50 Urine Culture - Preliminary Urine Catheterized 12/13/23 06:00 Blood Culture - Preliminary Blood NEGATIVE TO DATE 12/13/23 06:00 Blood Culture - Preliminary Blood NEGATIVE TO DATE 12/12/23 10:07 Blood Culture - Preliminary Blood NEGATIVE TO DATE A&P Assessment and plan (1) Ischemic cardiomyopathy: (2) CHF (congestive heart failure): (3) CAD (coronary artery disease): (4) ICD (implantable cardioverter-defibrillator) in place: (5) Hyperlipidemia: (6) Hypothyroidism: (7) Diabetes mellitus, type II, insulin dependent: (8) CAPRI (acute kidney injury): (9) COPD (chronic obstructive pulmonary disease): (10) Chronic hypercapnic respiratory failure: (11) Obstructive sleep apnea: (12) Digoxin toxicity: Plan #Weakness #Acute kidney injury on CKD #Nausea #Supratherapeutic digoxin level #Chronic systolic diastolic dysfunction with EF 36% #Chronic hypotension, on midodrine #UTI #Hypothyroidism #History of multiorgan failure, requiring temporary dialysis in August 2023 #Chronic COPD #Renal calculus #History of CAD #History of CKD stage II #Insulin-dependent diabetes mellitus #Hyperlipidemia #History of STEMI - Check blood culture, urine culture ? Digoxin level 2.1 on admission. Digoxin has been stopped. Will recheck in AM. ? Vitals are stable as of now we will continue to monitor ? Hold carvedilol ? Continue midodrine, aspirin ? Continue levothyroxine 75 daily. Will need to repeat TSH in 4 to 6 weeks ? DuoNeb every 4 hours as needed ? Continue home gabapentin reduced dose secondary to CAPRI ? Continue Rocephin 1 g daily ? ICD in place. Will interrogate ? I will hold metolazone but continue furosemide today. ? Lactic acidosis on admission has resolved with IV fluids ? CAPRI on CKD. Baseline creatinine 1.5-1.8 range. On admission 2.2. Metolazone has been held. Patient did report decreased urine output last few days. Potassium high along with magnesium and abnormal urinalysis on admission. History of rhabdomyolysis this year. Continue to monitor. Consult nephrology -[facility] of discharge. However will order physical therapy consult and reevaluate for that once medically stable for discharge. - baseline trop 273. no other trops available - recheck trop series and serial ekgs, pt not complaining of any chest pain, - Possible NSTEMI? - delta trop 20, start heparin drip. check echo, consult cardiology. pt is a very poor historian - dig level 1.3 this morning - cardiology consulted: appreciate recs. stop heparin drip, - recheck trop series continue to monitor in icu continue midodrine check sepsis workup, bcx, lactate, cbc cmp Full code DVT prophylaxis: Heparin SQ twice daily Today's plan 12/13 ? Blood culture positive for gram-positive cocci in clusters, final speciation and sensitivity pending ? Repeat blood cultures negative today. ? Continue vancomycin ? Replete potassium ? Cardiology on board, nephrology on board ? Check urine culture, sputum culture Gram stain induce ? Place Burciaga catheter ? Acute on chronic congestive heart failure?will place on Lasix 40 IV twice daily today. Kidney function is stabilized. ? Mildly hyponatremic, hypervolemic. ? Will recheck chest x-ray, check ABG. ? Wean off BiPAP as able. - Attestations 2 Medical Necessity Statement*: Will need continued hospitalization for management of bacteremia Diagnoses Ischemic cardiomyopathy I25.5 Acute on chronic systolic congestive heart failure I50.9 Coronary artery disease involving [place] coronary artery of [place] heart without angina pectoris I25.10 ICD (implantable cardioverter-defibrillator) in place Z95.810 Hyperlipidemia, unspecified hyperlipidemia type E78.5 Hypothyroidism E03.9 Diabetes mellitus, type II, insulin dependent E11.9; Z79.4 CAPRI (acute kidney injury) N17.9 COPD (chronic obstructive pulmonary disease) J44.9 Chronic hypercapnic respiratory failure J96.12 Obstructive sleep apnea G47.33 Digoxin toxicity T46.0X1A
[2023-12-14 14:17] LABS: ABG PCO2 46.6 mmHg (35-45); ABG PH Result 7.41 (7.35-7.45); Alveolar-Arterial Oxygen Gradi 5.9 mmHg (5-10); Arterial Blood Gas Hematocrit 44.2 % (42-52); Base Excess ABG 3.7 mmol/L (-2.0-2.0); Blood Gas Allen Test Pos; Blood Gas Operator Identificat AMH; Blood Gas Sample Site Radial, right; Blood Gas Sample Type Arterial; Carboxyhemoglobin 1.1 %THgb (0.4-20.1); HCO3 ABG 29.2 mmol/L (22-26); HGB O2 Sat 95.7 % (95-100); Ionized Calcium Level - ABG 1.2 mmol/L (1.1-1.4); Methemoglobin 0.4 % (0.4-1.5); Oxygen Device BIPAP; Oxygen Saturation ABG 97.2; PO2 ABG 95.9 mmHg (80.0-100.0); PO2 FiO2 Ratio Arterial Blood 0; Potassium Level - ABG 3.5 mmol/L (3.5-5.0); Total Hemoglobin 14.4 g/dL (14-18)
[2023-12-14 16:39] LABS: Glucose Point of Care 131 mg/dL (70-110)
[2023-12-14] MEDS: FUROsemide 10 mg/mL SDV 4mL 40 MG IVP (16:45)
--- NOTE | 2023-12-14 17:33 | ECG_ITS ---
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 Measurements Intervals [place] Rate: 59 P: 0 MA: 0 QRS: -77 QRSD: 146 T: 89 QT: 313 QTc: 312 Interpretive Statements ELECTRONIC VENTRICULAR PACEMAKER Compared to ECG 12/12/2023 15:46:46 No significant changes Electronically Signed On 12-15-2023 12:03:59 CDT by Alverto Qureshi M.D. [id number]
--- NOTE | 2023-12-14 18:08 | PC.NURSE ---
patient complained of chest pain at 1747. Nurse completed EKG which showed only v paced. Patient was very lethargic sitting on side of bed so nurse put him back in bed. Patient then requested his bipap be put pack on. Dr Dunne notified and gave orders for trop and GI cocktail. All vitals WNL. I offered him tylenol to which he responded tylenol don't fucking work and he then said I can't fucking breathe to which nurse replied, youre on oxygen, take big deep breaths and your O2 is at 98% to which patient responded that don't fucking mean anything Bipap placed on patient.
[2023-12-14 19:05] LABS: Troponin T (5th) Once 179 ng/L (0-15)
[2023-12-14] MEDS: lidocaine 2% viscous 15 ML, aluminum-mag hydrox-simethicon 30 ML, sucralfate oral liq 1 GM PO (19:46)
[2023-12-14 20:37] LABS: Glucose Point of Care 182 mg/dL (70-110)
[2023-12-14] MEDS: sennosides-docusate Tablet 1 TAB PO (21:09)
[2023-12-14] MEDS: insulin lispro 100 unit/1 mL SUBCUT (21:17)
[2023-12-15] VITALS (16 sets, daily range): BP systolic 104–150; BP diastolic 80–113; PULSE 60–73; RESP 15–25; TEMP 36.1–36.9; O2SAT 95–99
--- NOTE | 2023-12-15 02:17 | XRR_ITS ---
PROCEDURE INFORMATION: Exam: XR Spine; Thoracic Exam date and time: 12/15/2023 2:51 AM Age: 58 years old Clinical indication: Injury or trauma; Injury: Fall onto floor. Upper back. Patient HX: Patient fell onto the floor getting out of bed. C/O upper and lower back pain. ; Additional info: Fall, severe pain TECHNIQUE: Imaging protocol: XR of the spine. Exam focused on the thoracic spine. Views: 1 view. COMPARISON: CT cervical spin wo con* [id number] 12/15/2023 2:47 AM FINDINGS: Bones/joints: Evaluation is limited without the benefit of a lateral projection. There is a dextroconvex curvature of the thoracic spine. Degenerative osteophytosis is noted. Vertebral body heights are grossly preserved. Soft tissues: Normal. XR/XR thoracic spine [facility] [id number] IMPRESSION: Limited study. Degenerative change and dextroconvex curvature of the thoracic spine.
--- NOTE | 2023-12-15 02:17 | CTR_ITS ---
PROCEDURE INFORMATION: Exam: CT Cervical Spine Without Contrast Exam date and time: 12/15/2023 2:47 AM Age: 58 years old Clinical indication: Injury or trauma; Fall; Blunt trauma; Patient HX: Patient fell onto the floor trying to get out of bed. C/O neck pain. ; Additional info: Fall, severe pain TECHNIQUE: Imaging protocol: Computed tomography of the cervical spine without contrast. Radiation optimization: All CT scans at this facility use at least one of these dose optimization techniques: automated exposure control; mA and/or kV adjustment per patient size (includes targeted exams where dose is matched to clinical indication); or iterative reconstruction. COMPARISON: CT neck w con* [id number] 07/18/2020 8:35 AM RADIATION DOSE METRICS: Total DLP (mGy-cm): 1278.87 FINDINGS: Bones: There is no evidence for acute cervical fracture. There is a mild levoconvex curvature of the cervical spine. Cervical spondylosis is noted with disc osteophyte and facet arthropathy. There is a probably degenerative 3 mm anterior positioning of C7 relative to T1. Lungs: Lung apices are normal. Soft tissues: Unremarkable. CT/CT cervical spin wo con* [id number] IMPRESSION: No evidence for acute cervical fracture.
--- NOTE | 2023-12-15 02:18 | XRR_ITS ---
PROCEDURE INFORMATION: Exam: XR Spine; Lumbar Exam date and time: 12/15/2023 2:53 AM Age: 58 years old Clinical indication: Injury or trauma; Injury: Fall onto floor. Lumbar. Patient HX: Patient fell onto the floor getting out of bed. C/O upper and lower back pain. ; Additional info: Fall, severe pain TECHNIQUE: Imaging protocol: XR of the spine. Exam focused on the lumbar spine. Views: 1 view. 1 view. COMPARISON: [facility] [id number] 12/15/2023 2:51 AM FINDINGS: Bones/joints: Vertebral body heights are grossly preserved. Soft tissues: Normal. Other findings: Evaluation is significantly limited without the benefit of a lateral projection as well as rotation of the patient's body. XR/XR lumbar spine V IMPRESSION: Extremely limited study.
[2023-12-15] MEDS: piperacillin-tazobactam 3.375 GM in sodium chloride 0.9% (plus) 50 ML IV ×3 (03:21→18:20)
[2023-12-15] MEDS: HYDROmorphone 1 mg/mL INJ 1 mL 0.200000000000000011 MG IVP (03:52)
--- NOTE | 2023-12-15 04:46 | PC.NURSE ---
Around 0215 nurse was making rounds and heard pts bipap alarm going off. Upon entry pt was found to be on the floor on his right side, directly opposite of the door disconnected from bipap. Nurse immediately called for assistance. Pt bed did have 3 rails up and pt was has the call light attached to his gown by a clip. No visible physcial injury seen but pt complained of back pain. Physician and equipment operator warehouse called for further instruction. Nurses and ROADMASTER on floor got pt back into bed with the use of the hoverjack. Physician order images to check for injuries and completed as ordered.
[2023-12-15 06:27] LABS: Glucose Point of Care 105 mg/dL (70-110)
[2023-12-15] MEDS: aspirin 81 mg EC Tablet PO (06:39)
[2023-12-15] MEDS: vancomycin 1,750 MG/350 ML PIGGYBACK 233.330000000000013 MG IV (06:40)
--- NOTE | 2023-12-15 08:07 | P.PN_ITS ---
Subjective 2 Subjective: Patient doing well. No chest pain. Vitals/I&O/Wt Last Vital Signs Temp 97.0 F L 12/15/23 07:18 Pulse 60 12/15/23 07:18 Resp 15 12/15/23 07:18 BP 122/88 12/15/23 07:18 Pulse Ox 99 12/15/23 07:18 O2 Del Method BiPAP 12/15/23 07:18 O2 Flow Rate 28 12/13/23 09:00 FiO2 28 12/15/23 04:00 12/14/23 12/15/23 12/15/23 22:59 06:59 14:59 Intake Total 1060 / 1650 200 / 1850 50 / 50 Output Total 620 / 620 1000 / 1620 Balance 440 / 1030 -800 / 230 50 / 50 Weight last 48 hrs Weight 262 lb 14.4 oz Weight 269 lb Physical Exam 2 Narrative: GENERAL: Patient is alert, awake and oriented x3. [] NECK: No jugular vein distension. [] HEENT: No cyanosis. No icterus. No pallor. [] HEART: Regular S1 and S2. No murmur, rub or gallop. [] LUNGS: Diminished air entry CENTRAL NERVOUS SYSTEM: Grossly nonfocal. [] EXTREMITIES: Lower extremities with 1+ edema bilaterally. Urinary Catheter Management: Burciaga: Cath Placed During This Visit: yes Reason for Continuing Indwelling Catheter: Accurate Measurement of Urinary Output in Critically Ill Patients Urinary Catheter Date of Insertion: 12/13/23 Urinary Catheter Time of Insertion: 10:30 Data 12/13/23 06:00 12/15/23 12:33 Micro: Microbiology 12/13/23 11:50 Urine Culture - Preliminary Urine Catheterized 12/13/23 06:00 Blood Culture - Preliminary Blood NEGATIVE TO DATE 12/13/23 06:00 Blood Culture - Preliminary Blood NEGATIVE TO DATE A&P Assessment and plan (1) Troponin level elevated: (2) Hypertension: Qualifiers: Hypertension type: essential hypertension Qualified Code(s): I10 - Essential (primary) hypertension (3) Hyperlipidemia: (4) ICD (implantable cardioverter-defibrillator) in place: (5) CAD (coronary artery disease): (6) CHF (congestive heart failure): (7) Ischemic cardiomyopathy: Plan Patient is overall stable. Repeat cultures still negative. Thank you for involving us with care of this patient. We will continue to follow. Please call with questions. Attestations 2 Medical Necessity Statement*: Care expected to cross 2 midnights. Coding Level of Care Code Acute Code for Chg Fwd Diagnoses Troponin level elevated R79.89 Essential hypertension I10 Hypertension type: essential hypertension Hyperlipidemia, unspecified hyperlipidemia type E78.5 ICD (implantable cardioverter-defibrillator) in place Z95.810 Coronary artery disease involving [place] coronary artery of [place] heart without angina pectoris I25.10 Acute on chronic systolic congestive heart failure I50.9 Ischemic cardiomyopathy I25.5
--- NOTE | 2023-12-15 08:56 | P.PN_ITS ---
Subjective 2 Subjective: no new complaints Labs pending Medications: Reviewed: Yes Vitals/I&O/Wt Last Vital Signs Temp 97.0 F L 12/15/23 07:18 Pulse 60 12/15/23 08:46 Resp 16 12/15/23 08:46 BP 122/88 12/15/23 07:18 Pulse Ox 97 12/15/23 08:46 O2 Del Method Nasal Cannula 12/15/23 08:46 O2 Flow Rate 2 12/15/23 08:46 FiO2 28 12/15/23 07:20 12/14/23 12/15/23 12/15/23 22:59 06:59 14:59 Intake Total 1060 / 1650 200 / 1850 50 / 50 Output Total 620 / 620 1000 / 1620 Balance 440 / 1030 -800 / 230 50 / 50 Weight last 48 hrs Weight 119.249 kg Weight 122.016 kg Physical Exam 2 Narrative: awake , alert heent s1s2 rrr per report lungs clear per report no edema Urinary Catheter Management: Burciaga: Cath Placed During This Visit: yes Reason for Continuing Indwelling Catheter: Accurate Measurement of Urinary Output in Critically Ill Patients Urinary Catheter Date of Insertion: 12/13/23 Urinary Catheter Time of Insertion: 10:30 Data 12/13/23 06:00 12/14/23 08:23 Micro: Microbiology 12/13/23 11:50 Urine Culture - Preliminary Urine Catheterized 12/13/23 06:00 Blood Culture - Preliminary Blood NEGATIVE TO DATE 12/13/23 06:00 Blood Culture - Preliminary Blood NEGATIVE TO DATE A&P Assessment and plan (1) Chronic kidney disease: (2) CAPRI (acute kidney injury): Plan 1. Acute on chronic kidney disease stage III: Baseline creatinine is in the mid 1 range, patient has multiple CAPRI's in the past and also required temporary dialysis. creatinine worsened to 2.2 likely secondary to decreased p.o. intake and secondary to meds including ARB, metolazone and Lasix. -resumed diuretics - swithed to PO lasix 40 mg bid , , continue to monitor renal function, -No obstruction on CT, - labs pending 2. Possible digoxin toxicity, bradycardia was noted prior to presentation here. Avoid digoxin if possible, given known CKD and history of multiple CAPRI's. 3. Hypokalemia repleted 4. Cystitis 5. Nonobstructing kidney stones, urology referral as outpatient 6. Hypokalemia : repleted Patient evaluated using audiovisual cart. Time spent 20 minutes. Attestations 2 Medical Necessity Statement*: per mark Coding Level of Care Code Acute Code for Chg Fwd Diagnoses Chronic kidney disease N18.9 CAPRI (acute kidney injury) N17.9
[2023-12-15] MEDS: levothyroxine 50 mcg Tablet 75 MCG PO (09:21)
[2023-12-15] MEDS: midodrine 5 mg TABLET 10 MG PO ×2 (09:21→21:28)
[2023-12-15] MEDS: gabapentin 300 mg Capsule PO ×2 (09:21→21:28)
[2023-12-15] MEDS: pantoprazole DR 40 mg Tablet PO (09:21)
[2023-12-15] MEDS: polyethylene glycol 3350 Pkt 17 gm PO (09:21)
[2023-12-15] MEDS: insulin glargine 100 units/1 mL 25 UNIT SUBCUT (09:22)
--- NOTE | 2023-12-15 11:38 | P.PN_ITS ---
Subjective 2 Subjective: awake alert oriented this am sitting up in bed eating says he feels BLAH says he fell out of bed last night but is ok and did not hurt himself says he tried to turn over and fell off Vitals/I&O/Wt Last Vital Signs Temp 97.0 F L 12/15/23 11:18 Pulse 60 12/15/23 11:18 Resp 21 H 12/15/23 11:18 BP 107/88 12/15/23 11:18 Pulse Ox 99 12/15/23 11:18 O2 Del Method Nasal Cannula 12/15/23 11:18 O2 Flow Rate 2 12/15/23 08:46 FiO2 28 12/15/23 07:20 12/14/23 12/15/23 12/15/23 22:59 06:59 14:59 Intake Total 1060 / 1650 200 / 1850 760 / 760 Output Total 620 / 620 1000 / 1620 Balance 440 / 1030 -800 / 230 760 / 760 Weight last 48 hrs Weight 119.249 kg Weight 122.016 kg Physical Exam 2 Narrative: General: Alert oriented x3, patient seen sitting up edge of bed HEENT: Normocephalic, atraumatic, EOMI, breathing comfortably on room air Cardio: Regular rate rhythm, normal S1-S2, Respiratory: Good bilateral air entry, no wheezes no rhonchi appreciated GI: Abdomen soft, nontender, nondistended, bowel sounds + Behavior: Appropriate and cooperative Extremities: no edema, no cyanosis Skin: No open sores noted. Urinary Catheter Management: Burciaga: Cath Placed During This Visit: yes Reason for Continuing Indwelling Catheter: Accurate Measurement of Urinary Output in Critically Ill Patients Urinary Catheter Date of Insertion: 12/13/23 Urinary Catheter Time of Insertion: 10:30 Data 12/13/23 06:00 12/14/23 08:23 Micro: Microbiology 12/13/23 11:50 Urine Culture - Final Urine Catheterized A&P Assessment and plan (1) Ischemic cardiomyopathy: (2) CHF (congestive heart failure): (3) CAD (coronary artery disease): (4) ICD (implantable cardioverter-defibrillator) in place: (5) Hyperlipidemia: (6) Hypothyroidism: (7) Diabetes mellitus, type II, insulin dependent: (8) CAPRI (acute kidney injury): (9) COPD (chronic obstructive pulmonary disease): (10) Chronic hypercapnic respiratory failure: (11) Obstructive sleep apnea: (12) Digoxin toxicity: Plan #Weakness #Acute kidney injury on CKD #Nausea #Supratherapeutic digoxin level #Chronic systolic diastolic dysfunction with EF 36% #Chronic hypotension, on midodrine #UTI #Hypothyroidism #History of multiorgan failure, requiring temporary dialysis in August 2023 #Chronic COPD #Renal calculus #History of CAD #History of CKD stage II #Insulin-dependent diabetes mellitus #Hyperlipidemia #History of STEMI - Check blood culture, urine culture ? Digoxin level 2.1 on admission. Digoxin has been stopped. Will recheck in AM. ? Vitals are stable as of now we will continue to monitor ? Hold carvedilol ? Continue midodrine, aspirin ? Continue levothyroxine 75 daily. Will need to repeat TSH in 4 to 6 weeks ? DuoNeb every 4 hours as needed ? Continue home gabapentin reduced dose secondary to CAPRI ? Continue Rocephin 1 g daily ? ICD in place. Will interrogate ? I will hold metolazone but continue furosemide today. ? Lactic acidosis on admission has resolved with IV fluids ? CAPRI on CKD. Baseline creatinine 1.5-1.8 range. On admission 2.2. Metolazone has been held. Patient did report decreased urine output last few days. Potassium high along with magnesium and abnormal urinalysis on admission. History of rhabdomyolysis this year. Continue to monitor. Consult nephrology -Patient may need to go back to shelter for acute rehab at time of discharge. However will order physical therapy consult and reevaluate for that once medically stable for discharge. - baseline trop 273. no other trops available - recheck trop series and serial ekgs, pt not complaining of any chest pain, - Possible NSTEMI? - delta trop 20, start heparin drip. check echo, consult cardiology. pt is a very poor historian - dig level 1.3 this morning - cardiology consulted: appreciate recs. stop heparin drip, - recheck trop series continue to monitor in icu continue midodrine check sepsis workup, bcx, lactate, cbc cmp Full code DVT prophylaxis: Heparin SQ twice daily Today's plan 12/14 ? Blood culture positive for gram-positive cocci in clusters, final speciation and sensitivity pending ? Repeat blood cultures negative today. ? Continue vancomycin ? Replete potassium ? Cardiology on board, nephrology on board ? Check urine culture, sputum culture Gram stain induce - pending ? Continue Burciaga catheter ? Acute on chronic congestive heart failure?will place on Lasix 40 IV bid Kidney function is stabilized. ? Mildly hyponatremic, yesterday. BMP pending today. ? Will recheck chest x-ray, check ABG. reviewed ?Continue bipap at night - Attestations 2 Medical Necessity Statement*: Will need continued hospitalization for management of bacteremia Diagnoses Ischemic cardiomyopathy I25.5 Acute on chronic systolic congestive heart failure I50.9 Coronary artery disease involving [place] coronary artery of [place] heart without angina pectoris I25.10 ICD (implantable cardioverter-defibrillator) in place Z95.810 Hyperlipidemia, unspecified hyperlipidemia type E78.5 Hypothyroidism E03.9 Diabetes mellitus, type II, insulin dependent E11.9; Z79.4 CAPRI (acute kidney injury) N17.9 COPD (chronic obstructive pulmonary disease) J44.9 Chronic hypercapnic respiratory failure J96.12 Obstructive sleep apnea G47.33 Digoxin toxicity T46.0X1A
[2023-12-15 12:04] LABS: Glucose Point of Care 213 mg/dL (70-110)
[2023-12-15] MEDS: insulin lispro 100 unit/1 mL SUBCUT ×3 (12:30→21:28)
[2023-12-15 13:03] LABS: Anion Gap 15.5 (5-19); Blood Urea Nitrogen 37 mg/dL (6-20); Calcium 8.3 mg/dL (8.5-10.5); Carbon Dioxide 26 mmol/L (22-29); Chloride 98 mmol/L (98-107); Glomerular Filtration Rate 47.9 mL/min (90-130); Glucose 185 mg/dL (65-115); Osmolality Calculated 295 mOsm/kg (285-295); Potassium 3.5 mmol/L (3.5-5.1); Sodium 136 mmol/L (136-145)
[2023-12-15 13:16] LABS: Creatinine Clr Calc Pharmacy 63.4497
[2023-12-15 16:58] LABS: Glucose Point of Care 200 mg/dL (70-110)
[2023-12-15] MEDS: FUROsemide 40 mg Tablet PO (18:22)
[2023-12-15 20:52] LABS: Glucose Point of Care 206 mg/dL (70-110)
[2023-12-15] MEDS: sennosides-docusate Tablet 1 TAB PO (21:28)
[2023-12-16] VITALS (10 sets, daily range): BP systolic 109–140; BP diastolic 71–96; PULSE 60–72; RESP 12–19; TEMP 35.9–36.7; O2SAT 93–100
[2023-12-16] MEDS: piperacillin-tazobactam 3.375 GM in sodium chloride 0.9% (plus) 50 ML IV ×3 (01:38→18:26)
[2023-12-16] MEDS: vancomycin 1,750 MG/350 ML PIGGYBACK 233.330000000000013 MG IV (05:23)
[2023-12-16] MEDS: aspirin 81 mg EC Tablet PO (05:29)
[2023-12-16 06:31] LABS: Glucose Point of Care 96 mg/dL (70-110)
--- NOTE | 2023-12-16 08:43 | P.PN_ITS ---
Subjective 2 Subjective: no new complaints Medications: Reviewed: Yes Vitals/I&O/Wt Last Vital Signs Temp 96.7 F L 12/16/23 03:56 Pulse 72 12/16/23 08:00 Resp 18 12/16/23 08:00 BP 131/96 12/16/23 08:00 Pulse Ox 99 12/16/23 08:00 O2 Del Method Room Air 12/16/23 08:00 O2 Flow Rate 2 12/16/23 07:55 FiO2 28 12/15/23 23:42 12/15/23 12/16/23 12/16/23 22:59 06:59 14:59 Intake Total 50 / 1100 50 / 1150 Output Total 800 / 800 400 / 1200 Balance -750 / 300 -350 / -50 Weight last 48 hrs Weight 119.249 kg Physical Exam 2 Narrative: awake , alert no distress S1S2 RRR PER REPORT LUNGS CLEAR PER REPORT NO EDEMA Urinary Catheter Management: Burciaga: Cath Placed During This Visit: yes Reason for Continuing Indwelling Catheter: Accurate Measurement of Urinary Output in Critically Ill Patients Urinary Catheter Date of Insertion: 12/13/23 Urinary Catheter Time of Insertion: 10:30 Data 12/13/23 06:00 12/15/23 12:33 Micro: Microbiology 12/12/23 10:05 Blood Culture - Preliminary Blood Staphylococcus haemolyticus 12/13/23 11:50 Urine Culture - Final Urine Catheterized A&P Assessment and plan (1) Chronic kidney disease: (2) CAPRI (acute kidney injury): Plan 1. Acute on chronic kidney disease stage III: Baseline creatinine is in the mid 1 range, patient has multiple CAPRI's in the past and also required temporary dialysis. creatinine worsened to 2.2 likely secondary to decreased p.o. intake and secondary to meds including ARB, metolazone and Lasix. -resumed diuretics - swithed to PO lasix 40 mg bid , , continue to monitor renal function, -No obstruction on CT, -Cr stable 2. Possible digoxin toxicity, bradycardia was noted prior to presentation here. Avoid digoxin if possible, given known CKD and history of multiple CAPRI's. 3. Hypokalemia repleted 4. Cystitis 5. Nonobstructing kidney stones, urology referral as outpatient 6. Hypokalemia : repleted Patient evaluated using audiovisual cart. Time spent 20 minutes. Attestations 2 Medical Necessity Statement*: per mediicne Coding Level of Care Code Acute Code for Chg Fwd Diagnoses Chronic kidney disease N18.9 CAPRI (acute kidney injury) N17.9
[2023-12-16] MEDS: insulin glargine 100 units/1 mL 25 UNIT SUBCUT (09:24)
[2023-12-16] MEDS: FUROsemide 40 mg Tablet PO ×2 (09:25→15:49)
[2023-12-16] MEDS: pantoprazole DR 40 mg Tablet PO (09:25)
[2023-12-16] MEDS: polyethylene glycol 3350 Pkt 17 gm PO (09:25)
[2023-12-16] MEDS: gabapentin 300 mg Capsule PO ×3 (09:25→20:21)
[2023-12-16] MEDS: levothyroxine 50 mcg Tablet 75 MCG PO (09:25)
[2023-12-16] MEDS: midodrine 5 mg TABLET 10 MG PO ×3 (09:25→20:21)
--- NOTE | 2023-12-16 09:34 | XR_ITS ---
WS: [id number] PORTABLE CHEST HISTORY: post PICC insertion COMPARISON: 12/14/2023 Left-sided PICC line in good position with tip terminating near the caval atrial junction. LEFT subclavian defibrillator. Lung volumes are decreased. No consolidations. Cardiac size: Mildly enlarged cardiac silhouette. Mediastinum/Aorta: Mild mediastinal widening. No osseous abnormality seen. XR/XR chest 1V portable [id number] IMPRESSION: 1. Interval placement left-sided PICC line in good position. 2. No pneumothorax.
--- NOTE | 2023-12-16 09:45 | PICC.NOTE ---
Double lumen PICC placed to left brachial vein. Referred to vascular access nurse for PICC placement due to poor access and need for IV Vancomycin. Risks and benefits discussed and informed consent obtained from patient. Left arm assessed with left brachial vein measuring 4.2 mm, straight, and apparent best choice for placement. Using sterile technique and MST, left brachial vein accessed x 1 stick. Mid-arm circumference measured 10 cm from left AC 39 cm. Trimmed cath 48 cm with 0 cm external length noted. CXR shows tip in distal SVC, cavoatrial junction, in good position for use per radiologist. Line secured with stat-lock. Insertion site covered with Biopatch and TSM. Report given to bedside nurse, JONO Holcomb.
[2023-12-16 12:48] LABS: Glucose Point of Care 168 mg/dL (70-110)
[2023-12-16] MEDS: insulin lispro 100 unit/1 mL SUBCUT ×4 (13:05→18:25)
--- NOTE | 2023-12-16 14:17 | P.PN_ITS ---
Subjective 2 Subjective: seen today appears he is back to his baseline awake alert oriented eating breakfast will be getting a picc line today Vitals/I&O/Wt Last Vital Signs Temp 97.4 F L 12/16/23 12:00 Pulse 60 12/16/23 12:00 Resp 14 12/16/23 12:00 BP 109/78 12/16/23 12:00 Pulse Ox 99 12/16/23 12:00 O2 Del Method Room Air 12/16/23 08:00 O2 Flow Rate 2 12/16/23 07:55 FiO2 28 12/15/23 23:42 12/15/23 12/16/23 12/16/23 22:59 06:59 14:59 Intake Total 50 / 1100 50 / 1150 473 / 473 Output Total 800 / 800 400 / 1200 Balance -750 / 300 -350 / -50 473 / 473 Weight last 48 hrs Weight 119.249 kg Physical Exam 2 Narrative: General: Alert oriented x3, patient seen sitting up edge of bed HEENT: Normocephalic, atraumatic, EOMI, breathing comfortably on room air Cardio: Regular rate rhythm, normal S1-S2, Respiratory: Good bilateral air entry, no wheezes no rhonchi appreciated GI: Abdomen soft, nontender, nondistended, bowel sounds + Behavior: Appropriate and cooperative Extremities: no edema, no cyanosis Skin: No open sores noted. Urinary Catheter Management: Burciaga: Cath Placed During This Visit: yes Reason for Continuing Indwelling Catheter: Accurate Measurement of Urinary Output in Critically Ill Patients Urinary Catheter Date of Insertion: 12/13/23 Urinary Catheter Time of Insertion: 10:30 Data 12/13/23 06:00 12/15/23 12:33 Micro: Microbiology 12/12/23 10:05 Blood Culture - Preliminary Blood Staphylococcus haemolyticus 12/13/23 11:50 Urine Culture - Final Urine Catheterized A&P Assessment and plan (1) Ischemic cardiomyopathy: (2) CHF (congestive heart failure): (3) CAD (coronary artery disease): (4) ICD (implantable cardioverter-defibrillator) in place: (5) Hyperlipidemia: (6) Hypothyroidism: (7) Diabetes mellitus, type II, insulin dependent: (8) CAPRI (acute kidney injury): (9) COPD (chronic obstructive pulmonary disease): (10) Chronic hypercapnic respiratory failure: (11) Obstructive sleep apnea: (12) Digoxin toxicity: Plan #Weakness #Acute kidney injury on CKD #Nausea #Supratherapeutic digoxin level #Chronic systolic diastolic dysfunction with EF 36% #Chronic hypotension, on midodrine #UTI #Hypothyroidism #History of multiorgan failure, requiring temporary dialysis in August 2023 #Chronic COPD #Renal calculus #History of CAD #History of CKD stage II #Insulin-dependent diabetes mellitus #Hyperlipidemia #History of STEMI - Check blood culture, urine culture ? Digoxin level 2.1 on admission. Digoxin has been stopped. Will recheck in AM. ? Vitals are stable as of now we will continue to monitor ? Hold carvedilol ? Continue midodrine, aspirin ? Continue levothyroxine 75 daily. Will need to repeat TSH in 4 to 6 weeks ? DuoNeb every 4 hours as needed ? Continue home gabapentin reduced dose secondary to CAPRI ? Continue Rocephin 1 g daily ? ICD in place. Will interrogate ? I will hold metolazone but continue furosemide today. ? Lactic acidosis on admission has resolved with IV fluids ? CAPRI on CKD. Baseline creatinine 1.5-1.8 range. On admission 2.2. Metolazone has been held. Patient did report decreased urine output last few days. Potassium high along with magnesium and abnormal urinalysis on admission. History of rhabdomyolysis this year. Continue to monitor. Consult nephrology -Patient may need to go back to [facility] for acute rehab at time of discharge. However will order physical therapy consult and reevaluate for that once medically stable for discharge. - baseline trop 273. no other trops available - recheck trop series and serial ekgs, pt not complaining of any chest pain, - Possible NSTEMI? - delta trop 20, start heparin drip. check echo, consult cardiology. pt is a very poor historian - dig level 1.3 this morning - cardiology consulted: appreciate recs. stop heparin drip, - recheck trop series continue to monitor in icu continue midodrine check sepsis workup, bcx, lactate, cbc cmp Full code DVT prophylaxis: Heparin SQ twice daily Today's plan 12/15 ? Blood culture positive for gram-positive cocci in clusters, final speciation and sensitivity pending ? Repeat blood cultures negative today. ? Continue vancomycin. will need 6 weeks total ? Replete potassium ? Cardiology on board, nephrology on board ? Check urine culture, sputum culture Gram stain induce - pending ? Continue Burciaga catheter ? Acute on chronic congestive heart failure?will place on Lasix 40 IV bid Kidney function is stabilized. ? BMP pending today. ?Continue bipap at night - PT today - potentially dc to [facility] once antibiotics setup - Attestations 2 Medical Necessity Statement*: Will need continued hospitalization for management of bacteremia Diagnoses Ischemic cardiomyopathy I25.5 Acute on chronic systolic congestive heart failure I50.9 Coronary artery disease involving [place] coronary artery of [place] heart without angina pectoris I25.10 ICD (implantable cardioverter-defibrillator) in place Z95.810 Hyperlipidemia, unspecified hyperlipidemia type E78.5 Hypothyroidism E03.9 Diabetes mellitus, type II, insulin dependent E11.9; Z79.4 CAPRI (acute kidney injury) N17.9 COPD (chronic obstructive pulmonary disease) J44.9 Chronic hypercapnic respiratory failure J96.12 Obstructive sleep apnea G47.33 Digoxin toxicity T46.0X1A
--- NOTE | 2023-12-16 17:01 | P.PN_ITS ---
Subjective 2 Subjective: Patient overall doing well. Is more alert now. Vitals/I&O/Wt Last Vital Signs Temp 98.1 F 12/16/23 16:00 Pulse 61 12/16/23 16:00 Resp 14 12/16/23 16:00 BP 140/80 12/16/23 16:00 Pulse Ox 98 12/16/23 16:00 O2 Del Method Room Air 12/16/23 08:00 O2 Flow Rate 2 12/16/23 07:55 FiO2 28 12/15/23 23:42 12/16/23 12/16/23 12/16/23 06:59 14:59 22:59 Intake Total 50 / 1150 473 / 473 228 / 701 Output Total 400 / 1200 650 / 650 Balance -350 / -50 473 / 473 -422 / 51 Weight last 48 hrs Weight 262 lb 14.4 oz Physical Exam 2 Narrative: GENERAL: Patient is alert, awake and oriented x3. [] NECK: No jugular vein distension. [] HEENT: No cyanosis. No icterus. No pallor. [] HEART: Regular S1 and S2. No murmur, rub or gallop. [] LUNGS: Diminished air entry CENTRAL NERVOUS SYSTEM: Grossly nonfocal. [] EXTREMITIES: Lower extremities with 1+ edema bilaterally. Urinary Catheter Management: Burciaga: Cath Placed During This Visit: yes Reason for Continuing Indwelling Catheter: Accurate Measurement of Urinary Output in Critically Ill Patients Urinary Catheter Date of Insertion: 12/13/23 Urinary Catheter Time of Insertion: 10:30 Data 12/17/23 05:00 12/17/23 05:00 Micro: Microbiology 12/12/23 10:05 Blood Culture - Preliminary Blood Staphylococcus haemolyticus A&P Assessment and plan (1) Troponin level elevated: (2) Hypertension: Qualifiers: Hypertension type: essential hypertension Qualified Code(s): I10 - Essential (primary) hypertension (3) Hyperlipidemia: (4) ICD (implantable cardioverter-defibrillator) in place: (5) CAD (coronary artery disease): (6) CHF (congestive heart failure): (7) Ischemic cardiomyopathy: Plan Patient is stable. However transthoracic echocardiogram was a limited quality and valves could not be visualized. Primary team requested for transesophageal echocardiogram to rule out endocarditis as source of bacteremia. We will proceed with it. Patient also has an ICD in place. Repeat cultures are negative. NPO past midnight. Thank you for involving us with care of this patient. We will continue to follow. Please call with questions. Attestations 2 Medical Necessity Statement*: Care expected to cross 2 midnights. Coding Level of Care Code Acute Code for Chg Fwd Diagnoses Troponin level elevated R79.89 Essential hypertension I10 Hypertension type: essential hypertension Hyperlipidemia, unspecified hyperlipidemia type E78.5 ICD (implantable cardioverter-defibrillator) in place Z95.810 Coronary artery disease involving [place] coronary artery of [place] heart without angina pectoris I25.10 Acute on chronic systolic congestive heart failure I50.9 Ischemic cardiomyopathy I25.5
[2023-12-16 17:36] LABS: Glucose Point of Care 177 mg/dL (70-110)
[2023-12-16] MEDS: sennosides-docusate Tablet 1 TAB PO (20:21)
[2023-12-16 21:33] LABS: Glucose Point of Care 214 mg/dL (70-110)
[2023-12-17] VITALS (19 sets, daily range): BP systolic 112–144; BP diastolic 75–97; PULSE 54–73; RESP 15–21; TEMP 36.1–36.8; O2SAT 94–100; BMI 43.7
[2023-12-17] MEDS: piperacillin-tazobactam 3.375 GM in sodium chloride 0.9% (plus) 50 ML IV (01:52)
[2023-12-17] MEDS: acetaminophen 325 mg Tablet 650 MG PO (05:03)
[2023-12-17 05:17] LABS: Basophils # 0.1 10^3/uL (0.0-0.1); Basophils % 1.1 %; Eosinophils # 0.4 10^3/uL (0.0-0.8); Hematocrit 46.3 % (37-53); Lymphocytes # 1.3 10^3/uL (0.8-4.8); Lymphocytes % 15.4 %; Mean Corpuscular HGB Conc 28.5 g/dL (30-55); Mean Corpuscular Hemoglobin 24.6 pg (27-33); Mean Corpuscular Volume 86.2 fl (82-101); Mean Platelet Volume 9.9 fL (7.4-10.4); Monocytes # 1.3 10^3/uL (0.2-0.9); Neutrophils # 5.59 10^3/uL (1.8-7.7); Neutrophils % 64.2 %; Nucleated Red Blood Cells % 0 %; Platelet Count 261 10^3/cmm (157-399); Red Blood Count 5.37 10^6/uL (3.85-5.65); Red Cell Distribution Width 19.2 % (12.1-15.1); White Blood Count 8.72 10^3/uL (3.29-11.43)
[2023-12-17 05:41] LABS: Blood Urea Nitrogen 31 mg/dL (6-20); Calcium 9.1 mg/dL (8.5-10.5); Carbon Dioxide 30 mmol/L (22-29); Chloride 98 mmol/L (98-107); Creatinine Clr Calc Pharmacy 63.4497; Glomerular Filtration Rate 47.9 mL/min (90-130); Glucose 137 mg/dL (65-115); Osmolality Calculated 299 mOsm/kg (285-295); Sodium 140 mmol/L (136-145)
[2023-12-17 05:42] LABS: Anion Gap 15.7 (5-19); Potassium 3.7 mmol/L (3.5-5.1)
[2023-12-17 05:44] LABS: Vancomycin Trough 28.3 ug/mL (10-15)
[2023-12-17] MEDS: aspirin 81 mg EC Tablet PO (06:05)
[2023-12-17 06:15] LABS: Glucose Point of Care 146 mg/dL (70-110)
[2023-12-17] MEDS: FUROsemide 40 mg Tablet PO ×2 (08:30→17:59)
[2023-12-17] MEDS: pantoprazole DR 40 mg Tablet PO (08:30)
[2023-12-17] MEDS: gabapentin 300 mg Capsule PO ×3 (08:30→21:02)
[2023-12-17] MEDS: midodrine 5 mg TABLET 10 MG PO ×3 (08:30→21:02)
[2023-12-17] MEDS: levothyroxine 50 mcg Tablet 75 MCG PO (08:30)
[2023-12-17] MEDS: insulin glargine 100 units/1 mL 25 UNIT SUBCUT (08:31)
[2023-12-17] MEDS: vancomycin 1,500 MG/300 ML PIGGYBACK 200 MG IV (08:32)
--- NOTE | 2023-12-17 08:56 | P.PN_ITS ---
Subjective 2 Subjective: Patient had NANCY today that did not show vegetations. Feeling better today. Vitals/I&O/Wt Last Vital Signs Temp 98.2 F 12/17/23 07:27 Pulse 68 12/17/23 08:10 Resp 15 12/17/23 08:10 BP 128/85 12/17/23 07:27 Pulse Ox 99 12/17/23 08:10 O2 Del Method BiPAP 12/17/23 08:10 O2 Flow Rate 2 12/16/23 07:55 FiO2 28 12/17/23 08:10 12/16/23 12/17/23 12/17/23 22:59 06:59 14:59 Intake Total 278 / 751 100 / 851 53.333 / 53.333 Output Total 950 / 950 500 / 1450 Balance -672 / -199 -400 / -599 53.333 / 53.333 Weight last 48 hrs Weight 262 lb 14.4 oz Physical Exam 2 Narrative: GENERAL: Patient is alert, awake and oriented x3. [] NECK: No jugular vein distension. [] HEENT: No cyanosis. No icterus. No pallor. [] HEART: Regular S1 and S2. No murmur, rub or gallop. [] LUNGS: Diminished air entry CENTRAL NERVOUS SYSTEM: Grossly nonfocal. [] EXTREMITIES: Lower extremities with 1+ edema bilaterally. Urinary Catheter Management: Burciaga: Cath Placed During This Visit: yes Reason for Continuing Indwelling Catheter: Accurate Measurement of Urinary Output in Critically Ill Patients Urinary Catheter Date of Insertion: 12/13/23 Urinary Catheter Time of Insertion: 10:30 Data 12/17/23 05:00 12/17/23 05:00 A&P Assessment and plan (1) Troponin level elevated: (2) Hypertension: Qualifiers: Hypertension type: essential hypertension Qualified Code(s): I10 - Essential (primary) hypertension (3) Hyperlipidemia: (4) ICD (implantable cardioverter-defibrillator) in place: (5) CAD (coronary artery disease): (6) CHF (congestive heart failure): (7) Ischemic cardiomyopathy: Plan No evidence of vegetations on NANCY. Antibiotic therapy per primary team. Repeat cultures are negative. Thank you for involving us with care of this patient. We will continue to follow. Please call with questions. Attestations 2 Medical Necessity Statement*: Care expected to cross 2 midnights. Coding Level of Care Code Acute Code for Chg Fwd Diagnoses Troponin level elevated R79.89 Essential hypertension I10 Hypertension type: essential hypertension Hyperlipidemia, unspecified hyperlipidemia type E78.5 ICD (implantable cardioverter-defibrillator) in place Z95.810 Coronary artery disease involving [place] coronary artery of [place] heart without angina pectoris I25.10 Acute on chronic systolic congestive heart failure I50.9 Ischemic cardiomyopathy I25.5
--- NOTE | 2023-12-17 09:19 | P.PN_ITS ---
Subjective 2 Subjective: doing well Medications: Reviewed: Yes Vitals/I&O/Wt Last Vital Signs Temp 98.2 F 12/17/23 07:27 Pulse 68 12/17/23 08:10 Resp 15 12/17/23 08:10 BP 128/85 12/17/23 07:27 Pulse Ox 99 12/17/23 08:10 O2 Del Method BiPAP 12/17/23 08:10 O2 Flow Rate 2 12/16/23 07:55 FiO2 28 12/17/23 08:10 12/16/23 12/17/23 12/17/23 22:59 06:59 14:59 Intake Total 278 / 751 100 / 851 53.333 / 53.333 Output Total 950 / 950 500 / 1450 Balance -672 / -199 -400 / -599 53.333 / 53.333 Weight last 48 hrs Weight 119.249 kg Physical Exam 2 Narrative: awake , alert no distress S1S2 RRR PER REPORT LUNGS CLEAR PER REPORT NO EDEMA Urinary Catheter Management: Burciaga: Cath Placed During This Visit: yes Reason for Continuing Indwelling Catheter: Accurate Measurement of Urinary Output in Critically Ill Patients Urinary Catheter Date of Insertion: 12/13/23 Urinary Catheter Time of Insertion: 10:30 Data 12/17/23 05:00 12/17/23 05:00 A&P Assessment and plan (1) Chronic kidney disease: (2) CAPRI (acute kidney injury): Plan 1. Acute on chronic kidney disease stage III: Baseline creatinine is in the mid 1 range, patient has multiple CAPRI's in the past and also required temporary dialysis. creatinine worsened to 2.2 likely secondary to decreased p.o. intake and secondary to meds including ARB, metolazone and Lasix. -resumed diuretics - swithed to PO lasix 40 mg bid , , continue to monitor renal function, -No obstruction on CT, -Cr stable 2. Possible digoxin toxicity, bradycardia was noted prior to presentation here. Avoid digoxin if possible, given known CKD and history of multiple CAPRI's. 3. Hypokalemia repleted 4. Cystitis 5. Nonobstructing kidney stones, urology referral as outpatient 6. Hypokalemia : repleted Patient evaluated using audiovisual cart. Time spent 20 minutes. Attestations 2 Medical Necessity Statement*: per mark Coding Level of Care Code Acute Code for Chg Fwd Diagnoses Chronic kidney disease N18.9 CAPRI (acute kidney injury) N17.9
--- NOTE | 2023-12-17 09:30 | PC.NURSE ---
Patient left [facility] for GI lab for NANCY at 0930.
--- NOTE | 2023-12-17 09:40 | ANES.PREANE2 ---
Pre-Anesthetic Assessment Height/Weight: Height 1.65 m Weight 119.249 kg Temp Pulse Resp BP Pulse Ox O2 Del Method O2 Flow Rate 98.2 F 68 15 128/85 99 BiPAP 2 12/17/23 07:27 12/17/23 08:10 12/17/23 08:10 12/17/23 07:27 12/17/23 08:10 12/17/23 08:10 12/16/23 07:55 FiO2 28 12/17/23 08:10 Operation Date: 12/17/23 10:00 Proposed Procedures p NANCY(Not Applicable) - [place] anesthetic complications: None Was Beta Donovan taken within 24 hours: N/A Was Clonidine taken within 24 hours: N/A Last intake: > 8 hrs Social No alcohol and No tobacco Exam alert, oriented x 3, clear to auscultation bilaterally and regular rate & rhythm Airway Mallampati: Class IV Pulmonary Asthma, Chronic Obstructive Pulmonary Disease and Sleep Apnea CV/HEM ICD, EF 36%, Mod MR, STEMI Metabolic Diabetes Mellitus, Hyperlipidemia, Morbid Obesity and Thyroid Disease Anesthetic Plan ASA status: 4 Anesthesia: MAC Risk of > 500 ml blood loss (7ml/kg in children): No Medications/Allergies Home Medications Medication Instructions Recorded Confirmed Last Taken Type aspirin 81 mg tablet,delayed 81 mg PO QAM 11/29/20 12/09/23 12/09/23 History release blood-glucose meter,continuous #1 ea 08/23/22 12/09/23 Unknown Rx (Dexcom G6 [employer] Specialist) blood-glucose transmitter (Dexcom #3 ea 08/23/22 12/09/23 Unknown Rx G6 Transmitter device) blood-glucose sensor (Dexcom G6 #9 ea 04/19/23 12/09/23 Unknown Rx Sensor device) gabapentin 300 mg capsule 600 mg PO TID Pain 08/13/23 12/09/23 12/09/23 History levothyroxine 50 mcg tablet 50 mcg PO DAILY 08/13/23 12/09/23 12/09/23 History metolazone 2.5 mg tablet 2.5 mg PO DAILY 08/13/23 12/09/23 12/09/23 History acetaminophen 325 mg tablet 650 mg PO Q6H PRN Pain 12/09/23 12/09/23 12/04/23 History albuterol sulfate 2.5 mg/3 mL 2.5 mg inhalation BID 12/09/23 12/09/23 12/09/23 History (0.083 %) solution for nebulization albuterol sulfate 2.5 mg/3 mL 2.5 mg inhalation Q6H PRN 12/09/23 12/09/23 12/07/23 History (0.083 %) solution for nebulization Shortness Of Breath Or Wheezing bisacodyl 10 mg rectal suppository 10 mg WA DAILY PRN Constipation 12/09/23 12/09/23 Unknown History (Dulcolax (bisacodyl)) carvedilol 3.125 mg tablet 3.125 mg PO BID 12/09/23 12/09/23 12/09/23 History cetirizine 10 mg tablet 10 mg PO DAILY 12/09/23 12/09/23 12/09/23 History cetirizine 5 mg tablet 5 mg PO DAILY PRN ALLERGIES 12/09/23 12/09/23 11/18/23 History cholecalciferol (vitamin D3) 1,250 1,250 mcg PO Q7D 12/09/23 12/09/23 12/03/23 History mcg (50,000 unit) capsule digoxin 125 mcg (0.125 mg) tablet 125 mcg PO DAILY 12/09/23 12/09/23 12/09/23 History empagliflozin 10 mg tablet 10 mg PO QAM 12/09/23 12/09/23 12/09/23 History (Jardiance) furosemide 40 mg tablet 40 mg PO BID 12/09/23 12/09/23 12/09/23 History insulin glargine 100 unit/mL (3 60 unit SUBCUT DAILY 12/09/23 12/09/23 12/08/23 History mL) subcutaneous pen insulin lispro 100 unit/mL See Rx Instructions .Route .COMPLEX 12/09/23 12/09/23 12/06/23 History subcutaneous pen insulin lispro 100 unit/mL See Rx Instructions .Route .COMPLEX 12/09/23 12/09/23 12/09/23 History subcutaneous pen magnesium hydroxide 400 mg/5 mL 30 ml PO DAILY PRN Constipation 12/09/23 12/09/23 Unknown History oral suspension (Milk of Magnesia) melatonin 3 mg tablet 3 mg PO BEDTIME PRN Sleep 12/09/23 12/09/2311/24/24 History midodrine 10 mg tablet 10 mg PO TID 12/09/23 12/09/23 12/09/23 History polyethylene glycol 3350 17 17 g PO DAILY 12/09/23 12/09/23 12/09/23 History gram/dose oral powder (Miralax) ramelteon 8 mg tablet 8 mg PO BEDTIME INSOMNIA 12/09/23 12/09/23 12/08/23 History sennosides 8.6 mg-docusate sodium 1 tab-cap PO BEDTIME PRN 12/09/23 12/09/23 Unknown History 50 mg tablet (Senokot-S) Constipation sodium phosphates 19 gram-7 118 ml WA DAILY PRN Constipation 12/09/23 12/09/23 Unknown History gram/118 mL enema (Fleet Enema) Allergies Allergy/AdvReac Type Severity Reaction Status Date / Time Sulfa (Sulfonamide Allergy Severe ALGY-Anaphy Verified 08/11/23 11:31 Antibiotics) laxis Current Medications Generic Name Dose Route Start Last Admin Trade Name Freq PRN Reason Stop Dose Admin Acetaminophen 650 mg 12/09/23 16:57 12/17/23 05:03 Acetaminophen 325 Mg Tablet PO 650 mg Q6H PRN Administration mild pain or temp >/= 101 Aspirin 81 mg 12/10/23 06:00 12/17/23 06:05 Aspirin 81 Mg Ec Tablet PO 81 mg QAM VIRA Administration Furosemide 40 mg 12/15/23 16:00 12/17/23 08:30 Furosemide 40 Mg Tablet PO 40 mg BID@08,16 VIRA Administration Gabapentin 300 mg 12/09/23 21:00 12/17/23 08:30 Gabapentin 300 Mg Capsule PO 300 mg TID VIRA Administration Heparin Sodium (Porcine) 0 unit 12/10/23 21:26 12/10/23 21:48 Heparin 5,000 Unit/Ml Inj 1 Ml IV 5,800 unit PRN PRN Administration Heparin weight-base protocol Protocol Hydromorphone HCl 0.2 mg 12/15/23 02:35 12/15/23 03:52 Hydromorphone 1 Mg/Ml Inj 1 Ml IVP 0.2 mg Q2H PRN Administration SEVERE PAIN Piperacillin Sod/Tazobactam 50 mls @ 12.5 mls/hr 12/13/23 10:00 12/17/23 05:44 Sod 3.375 gm/ Sodium Chloride IV Infused Q8H VIRA Infusion Protocol Vancomycin/PEG/NADA/Lysine/Water 1,500 mg in 300 mls @ 200 mls/hr 12/17/23 08:00 12/17/23 08:48 Vancocin IV 0 mls/hr Q24H VIRA Infusion Insulin Glargine 25 unit 12/12/23 08:00 12/17/23 08:31 Insulin Glargine 100 Units/1 Ml SUBCUT 25 unit DAILY@08 VIRA Administration Insulin Human Lispro 0 unit 12/09/23 21:00 12/16/23 13:13 Insulin Lispro 100 Unit/1 Ml SUBCUT 2 unit BEDTIME VIRA Administration Protocol Insulin Human Lispro 0 unit 12/09/23 18:00 12/17/23 08:33 Insulin Lispro 100 Unit/1 Ml SUBCUT Not Given TIDWM VIRA Protocol Levothyroxine Sodium 75 mcg 12/10/23 09:00 12/17/23 08:30 Levothyroxine 50 Mcg Tablet PO 75 mcg DAILY VIRA Administration Midodrine 10 mg 12/09/23 21:00 12/17/23 08:30 Midodrine 5 Mg Tablet PO 10 mg TID VIRA Administration Pantoprazole Sodium 40 mg 12/10/23 09:00 12/17/23 08:[address] 40 Mg Tablet PO 40 mg DAILY VIRA Administration Phenazopyridine HCl 200 mg 12/10/23 03:37 12/10/23 04:30 Phenazopyridine 100 Mg Tablet PO 200 mg TID PRN Administration DYSURIA Polyethylene Glycol 17 gm 12/10/23 09:00 12/16/23 09:25 Polyethylene Glycol 3350 Pkt 17 Gm PO 17 gm DAILY VIRA Administration Senna/Docusate Sodium 1 tab 12/09/23 21:00 12/16/23 20:21 Sennosides-Docusate Tablet PO 1 tab BEDTIME VIRA Administration [facility] Anesthesia Medical History (Updated 12/12/23 @ 10:39 by Alverto Qureshi M.D) History of transesophageal echocardiography (NANCY) August 2023 Multiorgan failure 07/2023 - 08/2023 when admitted with COVID 19, intubated, temporary dialysis with CRRT for CAPRI/ARF and fluid overload, transient afib, encephalopathy, shock liver, septic shock, required TPN and transfer to LTAC facility History of renal dialysis temporary dialysis in August 2023 Chronic hypercapnic respiratory failure Hypothyroidism Chronic kidney disease Sustained ventricular tachycardia 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 Pneumonia due to COVID-19 virus August 2023, severe treated with dexamethasone and remdesivir Staphylococcus aureus pneumonia August 2023 when had covid, also had staph lundgensis and staph epidermidis in cultures > received prolonged course of antibiotics with cefazolin via PICC per ID recommendations which completed in Sep 2023 Renal calculus history of left renal calculi and at least 2 spontaneous passage Personal history of nicotine dependence CHF (congestive heart failure) systolic and diastolic dysfunction CAD (coronary artery disease) 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 2 diabetes mellitus Insulin dependent diabetes mellitus ICD (implantable cardioverter-defibrillator) in place single chamber medtronic ICD programmed with a lower rate at 40 bpm per report 08/20/2023 Morbid obesity Obstructive sleep apnea Intolerant of home bipap COPD (chronic obstructive pulmonary disease) Ischemic cardiomyopathy Technically limited echo in 08/2023 with diffuse hypokinesis and EF 36% Hyperlipidemia Hypertension ST elevation myocardial infarction (STEMI) of inferior wall Surgical History (Updated 12/09/23 @ 18:20 by Jacqui Mesa MD) History of cardiac catheterization ~06/2023 with no intervention performed per cardiology consult notes in 08/2023 History of appendectomy History of hernia surgery S/P knee replacement History of left knee replacement History of cardiac defibrillator placement History of coronary artery stent placement 2015 hx of CAD with inferior wall IN s/p RCA stent, LAD stent Family History Father No problems noted. Mother No problems noted. Denies family history of CAD (coronary artery disease) Social History Smoking and tobacco/nicotine status: former use of tobacco/nicotine Alcohol intake: never Substance/Drug Use: never Marital status: Single Current occupational status: disabled Do you think of yourself as: Straight/Heterosexual Data Anesthesia 12/17/23 05:00 12/17/23 05:00 Short CBC 12/17/23 Range/Units 05:00 WBC 8.72 (3.29-11.43) 10^3/uL Hgb 13.20 (11.27-16.99) g/dL Hct 46.3 (37-53) % MCV 86.2 (82-101) fl Plt Count 261 (157-399) 10^3/cmm Neut % (Auto) 64.2 % Neut # (Auto) 5.59 (1.8-7.7) 10^3/uL BMP 12/15/23 12/17/23 12:33 05:00 Sodium 136 140 Potassium 3.5 3.7 Chloride 98 98 Carbon Dioxide 26 30 H BUN 37 H 31 H Creatinine 1.5 H 1.5 H Glucose 185 H 137 H Calcium 8.3 L 9.1 Cardiac Studies: Echocardiogram 12/13/23
--- NOTE | 2023-12-17 09:48 | W.PM.OPSUD ---
Surgery/Procedure H&P Update DATE OF PROCEDURE: December 17, 2023 DATE H&P PERFORMED: 12/11/23 H&P UPDATE INFORMATION: I have reviewed H&P completed within last 30 days, I have examined patient prior to procedure and Changes to prior documentation as noted here CHANGES TO PREVIOUS DOCUMENTATION: During hospitalization patient had blood cultures positive for staph. Transthoracic echocardiogram was a very limited quality of valvular structures are not well-visualized. Patient also has an ICD in place. Repeat cultures are negative. We will perform transesophageal echocardiogram to rule out endocarditis. No source of bacteremia was found. PREOP DIAGNOSIS: Rule out endocarditis PRIMARY INDICATION FOR PROCEDURE: Rule out endocarditis PLANNED PROCEDURE: Operation Date: 12/17/23 10:00 Proposed Procedures p NANCY(Not Applicable) - Alverto Qureshi M.D Anesthesia team available for sedation.
--- NOTE | 2023-12-17 10:00 | USCV_ITS ---
Param Tejada Age: 58 Gender: M : 1965 Exam Date: 12/17/2023 10:12 Ordering Phys: Alverto Qureshi M.D ([email or web address]) Technologist: ALEXIA [place] [facility] [place]: ENDOCARDITIS BP: 136 / 82 HR: 70 Rhythm: Sinus Technical Quality: Adequate MEASUREMENTS (Male / Female) Normal Values Medications Per anesthesia team Complications None Proc. Components After anesthesia team sedated patient, we proceeded with advancing NANCY probe. FINDINGS Left Ventricle LV systolic function is moderate to severely reduced Right Ventricle Normal in size and function Right Atrium Normal in size. Pacemaker lead is seen. No visible vegetation. Left Atrium Normal in size LA Appendage No left atrial appendage thrombus. IA Septum Normal Mitral Valve Structurally normal mitral valve. No evidence of vegetation. Mild mitral regurgitation. Aortic Valve Structurally normal aortic valve. No vegetation seen. Tricuspid Valve Structurally normal. No vegetation seen. Moderate tricuspid regurgitation. Pulmonic Valve No vegetations seen Pericardium Normal Aorta Not well visualized CONCLUSIONS LV systolic function is moderate to severely reduced No evidence of vegetations noted. Alverto Qureshi MD (Electronically Signed) Final Date: 22 Dec 2023 10:11 S
--- NOTE | 2023-12-17 10:20 | PICC.NOTE ---
Pt to GI lab for NANCY. PICC line very difficult to flush. Dr. Dunne notified. Orders received for TPA to both lumens of PICC. 24 hour dressing change completed using sterile technique. Line secured with stat-lock. Insertion site covered with Biopatch and TSM. Report given to bedside nurse, JONO Mcallister.
[2023-12-17] MEDS: alteplase 1 mg/mL SDV 2 mL 2 MG INTRACATH ×5 (10:37→12:54)
--- NOTE | 2023-12-17 11:15 | ANE.PACU2 ---
Inpatient post-anesthesia follow up: Airway intact: Yes Vital signs: Temperature 97.9 F Pulse Rate 71 Respiratory Rate 16 Blood Pressure 138/81 Pulse Oximetry 96 Oxygen Delivery Me thod Nasal Cannula Oxygen Flow Rate 3 Fraction of Inspir ed Oxygen 28 Hydration adequate: Yes Nausea and vomiting: No Pain level: 1 Mental status: Baseline
--- NOTE | 2023-12-17 11:30 | PC.NURSE ---
Patient comes back from GI lab at 1125.
[2023-12-17 12:03] LABS: Glucose Point of Care 107 mg/dL (70-110)
--- NOTE | 2023-12-17 12:24 | XRR_ITS ---
PROCEDURE INFORMATION: Exam: XR Chest Exam date and time: 12/17/2023 1:22 PM Age: 58 years old Clinical indication: Device placement; Picc; Additional info: Difficulty flushing picc, checking to make sure line has not moved since placement TECHNIQUE: Imaging protocol: Radiologic exam of the chest. Views: 1 view. COMPARISON: CR XR chest 1V portable [id number] 12/16/2023 10:12 AM FINDINGS: Tubes, catheters and devices: There is stable intact pacemaker/AICD hardware. Left-sided PICC tip is now in the upper superior vena cava. Lungs: New hazy probable pleuroparenchymal opacity in the right base. Pleural spaces: No pneumothorax. Heart/Mediastinum: Unremarkable. No cardiomegaly. Bones/joints: Unremarkable. XR/XR chest 1V portable [id number] IMPRESSION: 1. Left-sided PICC tip is now in the upper superior vena cava. 2. New hazy probable pleuroparenchymal opacity in the right base.
--- NOTE | 2023-12-17 14:04 | XRR_ITS ---
PROCEDURE INFORMATION: Exam: XR Chest Exam date and time: 12/17/2023 1:22 PM Age: 58 years old Clinical indication: Device placement; Picc; Additional info: Post manipulation of picc, picc retracted 2 cm and flushed. Able to get blood return TECHNIQUE: Imaging protocol: Radiologic exam of the chest. Views: 1 view. COMPARISON: CR XR chest 1V portable [id number] 12/17/2023 1:22 PM FINDINGS: Compared to the earlier chest x-ray the left-sided PICC is not appreciably changed in position. Overall appearance of the chest x-ray is unchanged. XR/XR chest 1V portable [id number] IMPRESSION: The chest x-ray including the left-sided PICC are not appreciably changed.
--- NOTE | 2023-12-17 14:07 | P.PN_ITS ---
Subjective 2 Subjective: Seen today. Plan to send back to [facility] however PICC is not functioning at this time. Repeat PICC line has been attempted however it is still not functioning. Vitals/I&O/Wt Last Vital Signs Temp 98.0 F 12/18/23 11:00 Pulse 75 12/18/23 11:00 Resp 15 12/18/23 11:00 BP 147/85 12/18/23 11:00 Pulse Ox 93 12/18/23 11:00 O2 Del Method Nasal Cannula 12/18/23 11:00 O2 Flow Rate 3 12/18/23 07:40 FiO2 28 12/18/23 04:25 12/17/23 12/18/23 12/18/23 22:59 06:59 14:59 Intake Total 540 / 1073.333 600 / 600 Output Total 950 / 950 700 / 1650 Balance -950 / -416.667 -160 / -576.667 600 / 600 Weight last 48 hrs Weight 121.563 kg Weight 119.249 kg Physical Exam 2 Narrative: General: Alert oriented x3 HEENT: Normocephalic, atraumatic, EOMI, breathing comfortably on room air Cardio: Regular rate rhythm, normal S1-S2, Respiratory: Good bilateral air entry, no wheezes no rhonchi appreciated GI: Abdomen soft, nontender, nondistended, bowel sounds + Behavior: Appropriate and cooperative Extremities: no edema, no cyanosis Skin: No open sores noted. Urinary Catheter Management: Burciaga: Cath Placed During This Visit: yes Reason for Continuing Indwelling Catheter: Accurate Measurement of Urinary Output in Critically Ill Patients Urinary Catheter Date of Insertion: 12/13/23 Urinary Catheter Time of Insertion: 10:30 Data 12/17/23 05:00 12/17/23 05:00 Micro: Microbiology 12/13/23 06:00 Blood Culture - Final Blood NO GROWTH AFTER 5 DAYS 12/13/23 06:00 Blood Culture - Final Blood NO GROWTH AFTER 5 DAYS 12/12/23 10:05 Blood Culture - Final Blood Staphylococcus haemolyticus 12/12/23 10:07 Blood Culture - Final Blood NO GROWTH AFTER 5 DAYS A&P Assessment and plan (1) Ischemic cardiomyopathy: (2) CHF (congestive heart failure): (3) CAD (coronary artery disease): (4) ICD (implantable cardioverter-defibrillator) in place: (5) Hyperlipidemia: (6) Hypothyroidism: (7) Diabetes mellitus, type II, insulin dependent: (8) CAPRI (acute kidney injury): (9) COPD (chronic obstructive pulmonary disease): (10) Chronic hypercapnic respiratory failure: (11) Obstructive sleep apnea: (12) Digoxin toxicity: Plan #Weakness #Acute kidney injury on CKD #Nausea #Supratherapeutic digoxin level #Chronic systolic diastolic dysfunction with EF 36% #Chronic hypotension, on midodrine #UTI #Hypothyroidism #History of multiorgan failure, requiring temporary dialysis in August 2023 #Chronic COPD #Renal calculus #History of CAD #History of CKD stage II #Insulin-dependent diabetes mellitus #Hyperlipidemia #History of STEMI - Check blood culture, urine culture ? Digoxin level 2.1 on admission. Digoxin has been stopped. Will recheck in AM. ? Vitals are stable as of now we will continue to monitor ? Hold carvedilol ? Continue midodrine, aspirin ? Continue levothyroxine 75 daily. Will need to repeat TSH in 4 to 6 weeks ? DuoNeb every 4 hours as needed ? Continue home gabapentin reduced dose secondary to CAPRI ? Continue Rocephin 1 g daily ? ICD in place. Will interrogate ? I will hold metolazone but continue furosemide today. ? Lactic acidosis on admission has resolved with IV fluids ? CAPRI on CKD. Baseline creatinine 1.5-1.8 range. On admission 2.2. Metolazone has been held. Patient did report decreased urine output last few days. Potassium high along with magnesium and abnormal urinalysis on admission. History of rhabdomyolysis this year. Continue to monitor. Consult nephrology -Patient may need to go back to [facility] for acute rehab at time of discharge. However will order physical therapy consult and reevaluate for that once medically stable for discharge. - baseline trop 273. no other trops available - recheck trop series and serial ekgs, pt not complaining of any chest pain, - Possible NSTEMI? - delta trop 20, start heparin drip. check echo, consult cardiology. pt is a very poor historian - dig level 1.3 this morning - cardiology consulted: appreciate recs. stop heparin drip, - recheck trop series continue to monitor in icu continue midodrine check sepsis workup, bcx, lactate, cbc cmp Full code DVT prophylaxis: Heparin SQ twice daily Today's plan 12/16 ? Blood culture positive for gram-positive cocci in clusters, staph hemolyticus. ? Repeat blood cultures negative today. ? Continue vancomycin. will need 6 weeks total ? Replete potassium ? Cardiology on board, nephrology on board ? Check urine culture, sputum culture Gram stain induce -negative to date. ? Continue Burciaga catheter ? Continue oral Lasix 40 twice daily. ?Continue bipap at night - PT today -Patient will need 6 weeks total of IV antibiotics and IV vancomycin until January 13. Plan to retry PICC line in a.m. on opposite arm. - Attestations 2 Medical Necessity Statement*: Will need continued hospitalization for management of bacteremia Diagnoses Ischemic cardiomyopathy I25.5 Acute on chronic systolic congestive heart failure I50.9 Coronary artery disease involving [place] coronary artery of [place] heart without angina pectoris I25.10 ICD (implantable cardioverter-defibrillator) in place Z95.810 Hyperlipidemia, unspecified hyperlipidemia type E78.5 Hypothyroidism E03.9 Diabetes mellitus, type II, insulin dependent E11.9; Z79.4 CAPRI (acute kidney injury) N17.9 COPD (chronic obstructive pulmonary disease) J44.9 Chronic hypercapnic respiratory failure J96.12 Obstructive sleep apnea G47.33 Digoxin toxicity T46.0X1A
[2023-12-17 14:17] LABS: SARS Covid-2 Antigen negative (Negative)
--- NOTE | 2023-12-17 14:35 | XR_ITS ---
WS: [id number] CHEST XRAY TECHNIQUE: Portable chest. CLINICAL INFORMATION: PICC replacement COMPARISON: Radiograph earlier today FINDINGS: Images demonstrate PICC line at the cavoatrial junction in good position. No pneumothorax. Heart: Stable cardiomegaly. Single lead cardiac pacer. Lungs: Lungs are well aerated. Prominent fat pad RIGHT lower lobe. Bones: Osteopenia. XR/XR chest 1V portable [id number] IMPRESSION: LEFT PICC line in good position with tip at the cavoatrial junction. No pneumot horax.
--- NOTE | 2023-12-17 15:18 | PC.NURSE ---
Dr Dunne is notified that patient has not received his IV zosyn or vancomycin due to PICC line occlusion. A new PICC line is being placed and provider said to give the vancomycin. Provider ordered to discontinue the zosyn. Provider ordered to leave the gillis in place and have the half-way do a voiding trial when patient gets there so he will be in a more relaxed environment. Patient will need to stay overnight due to time restrains and transportation to half-way due to PICC line placement and vanco. Zosyn order is discontinued.
--- NOTE | 2023-12-17 16:53 | PC.NURSE ---
Report has been called to JONO [place] at [facility].
--- NOTE | 2023-12-17 17:04 | PICC.NOTE ---
TPA administered x 2 to left brachial PICC with no results. CXR ordered and showed tip of PICC, originally located in cavoatrial junction, now in superior SVC. Dr. Dunne consulted. Over the wire PICC exchange performed to left brachial PICC. Tip confirmed at cavoatrial junction by radiologist. IV Vancomycin started. Within 10 minutes of IV Vancomycin infusing, IV alarming with downstream occlusion alert. PICC very difficult to flush with no blood return. Pt did not move or reposition himself in bed during this time. Dr. Dunne consulted. PICC dc'd from left upper arm. Pressure held until hemostasis obtained. Ultrasound guided IV placed to right upper arm. IV Vancomycin infusing without difficulty. Report given to bedside nurseAry.
[2023-12-17 17:17] LABS: Glucose Point of Care 227 mg/dL (70-110)
[2023-12-17] MEDS: insulin lispro 100 unit/1 mL SUBCUT ×2 (18:00→18:40)
--- NOTE | 2023-12-17 19:26 | P.PN_ITS ---
Subjective 2 Subjective: no new complaints NANCY today Medications: Reviewed: Yes Vitals/I&O/Wt Last Vital Signs Temp 97.9 F 12/17/23 16:00 Pulse 67 12/17/23 16:00 Resp 21 H 12/17/23 16:00 BP 114/85 12/17/23 16:00 Pulse Ox 99 12/17/23 16:00 O2 Del Method Nasal Cannula 12/17/23 16:00 O2 Flow Rate 3 12/17/23 11:05 FiO2 28 12/17/23 08:10 12/17/23 12/17/23 12/17/23 06:59 14:59 22:59 Intake Total 100 / 1201 533.333 / 533.333 Output Total 500 / 1450 950 / 950 Balance -400 / -249 533.333 / 533.333 -950 / -416.667 Weight last 48 hrs Weight 119.249 kg Physical Exam 2 Narrative: awake , alert no distress S1S2 RRR PER REPORT LUNGS CLEAR PER REPORT NO EDEMA Urinary Catheter Management: Burciaga: Cath Placed During This Visit: yes Reason for Continuing Indwelling Catheter: Accurate Measurement of Urinary Output in Critically Ill Patients Urinary Catheter Date of Insertion: 12/13/23 Urinary Catheter Time of Insertion: 10:30 Data 12/17/23 05:00 12/17/23 05:00 Micro: Microbiology 12/12/23 10:05 Blood Culture - Final Blood Staphylococcus haemolyticus 12/12/23 10:07 Blood Culture - Final Blood NO GROWTH AFTER 5 DAYS A&P Assessment and plan (1) Chronic kidney disease: (2) CAPRI (acute kidney injury): Plan 1. Acute on chronic kidney disease stage III: Baseline creatinine is in the mid 1 range, patient has multiple CAPRI's in the past and also required temporary dialysis. creatinine worsened to 2.2 likely secondary to decreased p.o. intake and secondary to meds including ARB, metolazone and Lasix. -resumed diuretics - swithed to PO lasix 40 mg bid , , continue to monitor renal function, -No obstruction on CT, -Cr stable 2. Possible digoxin toxicity, bradycardia was noted prior to presentation here. Avoid digoxin if possible, given known CKD and history of multiple CAPRI's. 3. Hypokalemia repleted 4. Cystitis 5. Nonobstructing kidney stones, urology referral as outpatient Patient evaluated using audiovisual cart. Time spent 20 minutes. Attestations 2 Medical Necessity Statement*: per mediicne team Coding Level of Care Code Acute Code for Chg Fwd Diagnoses Chronic kidney disease N18.9 CAPRI (acute kidney injury) N17.9
[2023-12-17 20:42] LABS: Glucose Point of Care 299 mg/dL (70-110)
[2023-12-17] MEDS: sennosides-docusate Tablet 1 TAB PO (21:02)
[2023-12-18] VITALS (8 sets, daily range): BP systolic 130–147; BP diastolic 78–92; PULSE 64–86; RESP 15–18; TEMP 36.3–36.7; O2SAT 93–99
--- NOTE | 2023-12-18 02:42 | PC.NURSE ---
Patient found on knees, in floor, facing towards bed. Patient assisted back to bed and assessed for injury. No injuries noted at this time, patient has no complaints of pain. Patient became belligerent while being transferred back into bed, yelling and cursing at staff. Patient placed on continuous vital sign monitoring and telemetry. Educated on use of call light and risk for falls, patient verbalized understanding. Bedside table and call light placed within reach, bed alarm set, fall risk arm band and signage present. Notified Dr. Mcgraw.
[2023-12-18] MEDS: aspirin 81 mg EC Tablet PO (05:39)
[2023-12-18 06:19] LABS: Glucose Point of Care 205 mg/dL (70-110)
--- NOTE | 2023-12-18 08:28 | P.PN_ITS ---
Subjective 2 Subjective: Patient is stable. No vegetations seen on the NANCY. Vitals/I&O/Wt Last Vital Signs Temp 98.0 F 12/18/23 07:15 Pulse 86 12/18/23 07:40 Resp 16 12/18/23 07:40 BP 130/85 12/18/23 07:15 Pulse Ox 99 12/18/23 07:40 O2 Del Method Nasal Cannula 12/18/23 07:40 O2 Flow Rate 3 12/18/23 07:40 FiO2 28 12/18/23 04:25 12/17/23 12/18/23 12/18/23 22:59 06:59 14:59 Intake Total 540 / 1073.333 Output Total 950 / 950 700 / 1650 Balance -950 / -416.667 -160 / -576.667 Weight last 48 hrs Weight 268 lb Weight 262 lb 14.4 oz Physical Exam 2 Narrative: GENERAL: Patient is alert, awake and oriented x3. [] NECK: No jugular vein distension. [] HEENT: No cyanosis. No icterus. No pallor. [] HEART: Regular S1 and S2. No murmur, rub or gallop. [] LUNGS: Diminished air entry CENTRAL NERVOUS SYSTEM: Grossly nonfocal. [] EXTREMITIES: Lower extremities with 1+ edema bilaterally. Urinary Catheter Management: Burciaga: Cath Placed During This Visit: yes Reason for Continuing Indwelling Catheter: Accurate Measurement of Urinary Output in Critically Ill Patients Urinary Catheter Date of Insertion: 12/13/23 Urinary Catheter Time of Insertion: 10:30 Data 12/17/23 05:00 12/17/23 05:00 Micro: Microbiology 12/13/23 06:00 Blood Culture - Final Blood NO GROWTH AFTER 5 DAYS 12/13/23 06:00 Blood Culture - Final Blood NO GROWTH AFTER 5 DAYS 12/12/23 10:05 Blood Culture - Final Blood Staphylococcus haemolyticus 12/12/23 10:07 Blood Culture - Final Blood NO GROWTH AFTER 5 DAYS A&P Assessment and plan (1) Troponin level elevated: (2) Hypertension: Qualifiers: Hypertension type: essential hypertension Qualified Code(s): I10 - Essential (primary) hypertension (3) Hyperlipidemia: (4) ICD (implantable cardioverter-defibrillator) in place: (5) CAD (coronary artery disease): (6) CHF (congestive heart failure): (7) Ischemic cardiomyopathy: Plan Patient's repeat cultures remain negative. TTE did not show vegetations. Antibiotic therapy per primary team. Patient is stable to be discharged from cardiology standpoint. Attestations 2 Medical Necessity Statement*: Care expected to cross 2 midnights. Coding Level of Care Code Acute Code for Chg Fwd Diagnoses Troponin level elevated R79.89 Essential hypertension I10 Hypertension type: essential hypertension Hyperlipidemia, unspecified hyperlipidemia type E78.5 ICD (implantable cardioverter-defibrillator) in place Z95.810 Coronary artery disease involving [place] coronary artery of [place] heart without angina pectoris I25.10 Acute on chronic systolic congestive heart failure I50.9 Ischemic cardiomyopathy I25.5
[2023-12-18] MEDS: levothyroxine 50 mcg Tablet 75 MCG PO (08:42)
[2023-12-18] MEDS: gabapentin 300 mg Capsule PO (08:42)
[2023-12-18] MEDS: polyethylene glycol 3350 Pkt 17 gm PO (08:42)
[2023-12-18] MEDS: midodrine 5 mg TABLET 10 MG PO (08:42)
[2023-12-18] MEDS: insulin glargine 100 units/1 mL 25 UNIT SUBCUT (08:43)
[2023-12-18] MEDS: pantoprazole DR 40 mg Tablet PO (08:43)
[2023-12-18] MEDS: insulin lispro 100 unit/1 mL SUBCUT ×2 (08:43→12:34)
[2023-12-18] MEDS: vancomycin 1,250 MG/250 ML PIGGYBACK 250 MG IV (08:44)
[2023-12-18] MEDS: acetaminophen 325 mg Tablet 650 MG PO (08:45)
[2023-12-18] MEDS: FUROsemide 40 mg Tablet PO (08:45)
[2023-12-18 11:45] LABS: Glucose Point of Care 228 mg/dL (70-110)
--- NOTE | 2023-12-18 12:35 | XR_ITS ---
WS: [id number] Portable AP upright chest, 12/18/2023 Clinical Data: Post PICC insertion Comparison: Portable chest, 12/17/2023 Findings: The right PICC line enters the superior vena cava. No pneumothorax is seen. The remainder o f the chest has not changed. XR/XR chest 1V portable [id number] Impression: Satisfactory insertion of right PICC line.
--- NOTE | 2023-12-18 14:05 | PM.DCS ---
Discharge Providers Date of Admission: 12/09/23 15:08 Date of Discharge: December 17, 2023 Attending Provider at Admission: Jacqui Mesa MD Attending Provider at Discharge: Tri Dunne MD Primary Care Provider: Karla Ryan MD Diagnoses at Discharge Discharge Diagnosis (1) Chronic kidney disease: Status: Chronic (2) CAPRI (acute kidney injury): Status: Acute Reason for Visit Reason for Visit: General Weakness Hospital Course Hospital Course Patient initially admitted for bradycardia and generally not feeling well. Digoxin level was supratherapeutic. Digoxin was stopped. Levels rechecked and repeat levels were low. However patient was significantly weak and not feeling well. Day 2 of admission he developed hypotension and had to require transfer to ICU for low blood pressure. Blood cultures were obtained and sepsis workup was done. Blood culture initially 2 out of 3 bottles were positive for staph hemolyticus. Source unknown. During hospital stay urine, sputum Gram stain culture was also obtained. No source identified. Patient was kept on Zosyn initially for possible UTI however once blood cultures were positive vancomycin was started. Subsequent blood cultures ordered have been negative to date. He underwent a NANCY which did not show any vegetation. Echo was also performed during hospital stay. There was also question of NSTEMI however medical management recommended at this time that was probably demand ischemia. Patient does have a known EF of 36% from prior. Also seen by nephrology during hospitalization for CAPRI. Patient to be discharged on 6 weeks of IV vancomycin with follow-up with ID as an outpatient. Patient to be discharged on 12/17/2023 however there was a PICC line malfunction and therefore discharge was canceled. New PICC line has been placed on right arm on 12/18/1903/31/2024. PICC line has been tested and it is working okay. He will be sent to assisted today. Patient in good spirits and feels he is back to his baseline. Patient's mother was updated over the phone and in person during hospitalization. I will call her today to let her know about his discharge. Physical Exam Narrative: General: Alert oriented x3, patient seen sitting up edge of bed HEENT: Normocephalic, atraumatic, EOMI, breathing comfortably on room air Cardio: Regular rate rhythm, normal S1-S2, Respiratory: Good bilateral air entry, no wheezes no rhonchi appreciated GI: Abdomen soft, nontender, nondistended, bowel sounds + Behavior: Appropriate and cooperative Extremities: no edema, no cyanosis Skin: No open sores noted. Urinary Catheter Management: [place]: Cath Placed During This Visit: yes Reason for Continuing Indwelling Catheter: Accurate Measurement of Urinary Output in Critically Ill Patients Urinary Catheter Date of Insertion: 12/13/23 Urinary Catheter Time of Insertion: 10:30 Discharge Data Studies Completed and Pending Completed Studies During Hospitalization Category Date Time Status CT abdomen renal stone [CT kidney stone 81422] Stat Cat Scan 12/09/23 11:[address] cervical spin wo con* 20392 Stat Cat Scan 12/15/23 02:[address] head wo con* [id number] Stat Cat Scan 12/09/23 09:50 Completed CXRP [XR chest 1V portable [id number]] Routine Exams 12/16/23 09:34 Completed XR chest 1V 26916 Stat Exams 12/12/23 09:03 Completed XR chest 1V portable [id number] Routine Exams 12/10/23 11:46 Completed XR chest 1V portable [id number] Stat Exams 12/09/23 09:45 Completed XR chest 1V portable [id number] Stat Exams 12/14/23 13:24 Completed XR lumbar spine 1V [id number] Stat Exams 12/15/23 02:18 Completed XR thoracic spine 1Vport [id number] Stat Exams 12/15/23 02:17 Completed CV. echo complete* [id number] Urgent Ultrasound 12/10/23 18:30 Completed CV. echo lmt w/w contras [id number] Stat Ultrasound 12/13/23 07:46 Completed Pending at discharge Category Date Time Status Blood Culture Stat Lab 12/12/23 10:07 Results Blood Culture Stat Lab 12/13/23 06:00 Results Sputum Culture and Gram Stain Stat Lab 12/13/23 09:06 Uncollected CV. echo transesophageal [id number] Routine Ultrasound 12/17/23 10:00 Taken Radiology Impressions Head CT 12/09/23 09:50 IMPRESSION: 1. No acute intracranial hemorrhage or edema. 2. Mild cerebral atrophy and mild small vessel ischemic disease. 3. Complete resolution of acute paranasal sinusitis described on 08/19/2023. Abdomen/Pelvis CT 12/09/23 11:29 IMPRESSION: 1. There are 3 nonobstructive left intrarenal calculi. No ureteral calculus or acute obstructive uropathy is identified. Follow-up with contrast CT urogram should be considered, when clinically appropriate, given history of hematuria. 2. Stranding within the fat immediately anterior to the urinary bladder with thickening of the adjacent bladder wall, findings could relate to cystitis. Appropriate follow-up recommended. 3. Suspected gallbladder sludge or faint stones. Some stranding within the pericholecystic fat, consider cholecystitis in the appropriate context. 4. Findings suggesting sequelae of recent surgery including small volume free fluid in the peritoneal space. COMMENTS: Please note that lack of IV contrast limits both the sensitivity, and the specificity, of the examination, particularly as regards focal lesions in the solid organs. Cervical Spine CT 12/15/23 02:17 IMPRESSION: No evidence for acute cervical fracture. Thoracic Spine X-Ray 12/15/23 02:17 IMPRESSION: Limited study. Degenerative change and dextroconvex curvature of the thoracic spine. Lumbar Spine X-Ray 12/15/23 02:18 IMPRESSION: Extremely limited study. Chest X-Ray 12/16/23 09:34 IMPRESSION: 1. Interval placement left-sided PICC line in good position. 2. No pneumothorax. Laboratory Results WBC 8.72 10^3/uL (3.29-11.43) 12/17/23 05:00 RBC 5.37 10^6/uL (3.85-5.65) 12/17/23 05:00 Hgb 13.20 g/dL (11.27-16.99) 12/17/23 05:00 Hct 46.3 % (37-53) 12/17/23 05:00 MCV 86.2 fl (82-101) 12/17/23 05:00 MCH 24.6 pg (27-33) L 12/17/23 05:00 MCHC 28.5 g/dL (30-55) L 12/17/23 05:00 RDW 19.2 % (12.1-15.1) H 12/17/23 05:00 Plt Count 261 10^3/cmm (157-399) 12/17/23 05:00 MPV 9.9 fL (7.4-10.4) 12/17/23 05:00 Neut % (Auto) 64.2 % 12/17/23 05:00 Lymph % (Auto) 15.4 % 12/17/23 05:00 [place] % (Auto) 15.0 % 12/17/23 05:00 Eos % (Auto) 4.0 % 12/17/23 05:00 Baso % (Auto) 1.1 % 12/17/23 05:00 Neut # (Auto) 5.59 10^3/uL (1.8-7.7) 12/17/23 05:00 Lymph # (Auto) 1.3 10^3/uL (0.8-4.8) 12/17/23 05:00 [place] # (Auto) 1.3 10^3/uL (0.2-0.9) H 12/17/23 05:00 Eos # (Auto) 0.4 10^3/uL (0.0-0.8) 12/17/23 05:00 Baso # (Auto) 0.1 10^3/uL (0.0-0.1) 12/17/23 05:00 Nucleated RBC % (auto) 0 % 12/17/23 05:00 Nucleated RBCs # 0.0 /100WBC 12/17/23 05:00 PT 15.00 SECONDS (12.1-14.9) H 12/09/23 10:28 INR 1.14 (0.8-1.2) 12/09/23 10:28 APTT 228.4 SECONDS (23.9-36.7) H* 12/11/23 07:28 Specimen Type Arterial 12/14/23 14:05 Sample Site Radial, right 12/14/23 14:05 ABG pH 7.41 (7.35-7.45) 12/14/23 14:05 ABG pCO2 46.6 mmHg (35-45) H 12/14/23 14:05 ABG pO2 95.9 mmHg (80.0-100.0) 12/14/23 14:05 ABG PO2/FiO2 Ratio 0 12/14/23 14:05 ABG HCO3 29.2 mmol/L (22-26) H 12/14/23 14:05 ABG O2 Saturation 97.2 12/14/23 14:05 ABG Base Excess 3.7 mmol/L (-2.0-2.0) H 12/14/23 14:05 Jj Test Pos 12/14/23 14:05 A-a O2 Gradient 5.9 mmHg (5-10) 12/14/23 14:05 Hematocrit 44.2 % (42-52) 12/14/23 14:05 Hgb O2 Saturation 95.7 % (95-100) 12/14/23 14:05 Carboxyhemoglobin 1.1 %THgb (0.4-20.1) 12/14/23 14:05 Methemoglobin 0.4 % (0.4-1.5) 12/14/23 14:05 Total Hemoglobin 14.4 g/dL (14-18) 12/14/23 14:05 Sodium 139.0 mmol/L (131-143) 12/14/23 14:05 Potassium 3.5 mmol/L (3.5-5.0) 12/14/23 14:05 Glucose 121.0 mg/dL (70-115) H 12/14/23 14:05 Ionized Calcium 1.2 mmol/L (1.1-1.4) 12/14/23 14:05 O2 Delivery Device Bipap 12/14/23 14:05 FiO2 28.0 % 12/14/23 14:05 Peripheral Edp Equipment Operator ID Amh 12/14/23 14:05 Sodium 140 mmol/L (136-145) 12/17/23 05:00 Potassium 3.7 mmol/L (3.5-5.1) 12/17/23 05:00 Chloride 98 mmol/L (98-107) 12/17/23 05:00 Carbon Dioxide 30 mmol/L (22-29) H 12/17/23 05:00 Anion Gap 15.7 (5-19) 12/17/23 05:00 BUN 31 mg/dL (6-20) H 12/17/23 05:00 Creatinine 1.5 mg/dL (0.7-1.2) H 12/17/23 05:00 GFR Calculation 47.9 mL/min (90-130) L 12/17/23 05:00 Glucose 137 mg/dL (65-115) H 12/17/23 05:00 POC Glucose 107 mg/dL (70-110) 12/17/23 11:34 Calculated Osmolality 299 mOsm/kg (285-295) H 12/17/23 05:00 Lactic Acid 1.9 mmol/L (0.5-2.2) 12/10/23 05:19 Lactic Acid (Sepsis) 1.8 mmol/L (0.5-2.2) 12/09/23 12:43 Lactate 1.5 mmol/L (0.5-2.2) 12/12/23 10:05 Uric Acid 14.2 mg/dL (3.4-7.0) H 12/10/23 05:19 Calcium 9.1 mg/dL (8.5-10.5) 12/17/23 05:00 Phosphorus 4.4 mg/dL (2.5-4.5) 12/11/23 04:26 Magnesium 3.0 mg/dL (1.7-2.3) H 12/13/23 06:00 Total Bilirubin 0.5 mg/dL (0.15-1.2) 12/13/23 06:00 AST 17 U/L (0-40) 12/13/23 06:00 ALT 11 U/L (0-41) 12/13/23 06:00 Alkaline Phosphatase 74 U/L (40-130) 12/13/23 06:00 Creatine Kinase 119 U/L (39-308) 12/10/23 05:19 Troponin T 5th Gen ng/L 179 ng/L (0-15) H* 12/14/23 18:27 Troponin T Baseline 207 ng/L (0-15) H* 12/12/23 08:15 Troponin T 120 Minute 207.5 ng/L (0-15) H 12/12/23 10:05 Delta Troponin T 0.5 ABS# (0-10) 12/12/23 10:05 Troponin T Hi Sens 6Hr 194.2 ng/L (0-15) H 12/12/23 14:25 Troponin T Hi Sens 6Hr Delta -12.8 ng/L (0-12) L 12/12/23 14:25 NT-Pro-B Natriuret Pep 6238 pg/mL (0-125) H 12/09/23 10:28 Total Protein 6.8 g/dL (6.6-8.7) 12/13/23 06:00 Albumin 3.3 g/dL (3.5-5.2) L 12/13/23 06:00 Globulin 3.5 g/dL (1.3-4.6) 12/13/23 06:00 Lipase 14 U/L (13-60) 12/09/23 10:28 TSH 27.71 uIU/mL (0.27-4.20) H 12/09/23 10:28 Free T4 0.96 ng/dL (0.82-1.77) 12/10/23 05:19 Free T3 2.3 PG/ML (2.0-4.4) 12/10/23 05:19 Random Cortisol 14.55 ug/dL (2.47-19.5) 12/12/23 08:15 Urine Color Yellow (Yellow) 12/09/23 10:53 Urine Appearance Hazy (CLEAR) A 12/09/23 10:53 Urine pH 7 (5-7) 12/09/23 10:53 Ur Specific [place] 1.005 (1.005-1.030) 12/09/23 10:53 Urine Protein 1+ (Negative) H 12/09/23 10:53 Urine Glucose (UA) 2+ (Normal) H 12/09/23 10:53 Urine Ketones Negative (Negative) 12/09/23 10:53 Urine Blood 2+ (Negative) H 12/09/23 10:53 Urine Nitrate Negative (Negative) 12/09/23 10:53 Urine Bilirubin Neg (Negative) 12/09/23 10:53 Urine Urobilinogen Norm mg/dL (Negative) 12/09/23 10:53 Ur Leukocyte Esterase 2+ (Negative) H 12/09/23 10:53 Urine RBC None /hpf (0-2) 12/09/23 10:53 Urine WBC Too numerous to cnt /hpf (0-5) H 12/09/23 10:53 Ur Squamous Epith Cells 0-4 /hpf (0-5) H 12/09/23 10:53 Amorphous Sediment Not Reportable 12/09/23 10:53 Urine Bacteria 1+ /hpf (NONE) H 12/09/23 10:53 Vancomycin Trough 28.3 ug/mL (10-15) H* 12/17/23 05:00 Digoxin 1.3 ng/mL (0.6-1.2) H 12/12/23 06:47 SARS-CoV-2 Ag (Rapid) negative (Negative) 12/12/23 05:40 Vitals Last Vital Signs Temp 97.9 F 12/17/23 11:35 Pulse 71 05/07/24 11:35 Resp 16 12/17/23 11:35 BP 138/81 12/17/23 11:35 Pulse Ox 96 12/17/23 11:35 O2 Del Method Nasal Cannula 12/17/23 11:35 O2 Flow Rate 3 12/17/23 11:05 FiO2 28 12/17/23 08:10 Discharge Plan Discharge Patient Disposition: Xfer SNF Condition: Stable Prescriptions: New Lantus U-100 Insulin 100 unit/mL Solution 25 unit SUBCUT DAILY@08 Qty: 3 0RF levothyroxine 50 mcg Tablet 75 mcg PO DAILY Qty: 30 0RF metoprolol succinate 25 mg capsule,sprinkle,ER 24hr 25 mg PO DAILY Qty: 30 0RF Continued aspirin 81 mg tablet,delayed release (DR/EC) 81 mg PO QAM (DME) Dexcom G6 Marker Assembler Misc See Rx Instructions miscellaneous .MEDSUPPLY Qty: 1 3RF Rx Instructions: change every 90 days (DME) Dexcom G6 Transmitter Device See Rx Instructions .MEDSUPPLY Qty: 3 3RF Rx Instructions: change every 3 months (DME) Dexcom G6 Sensor Device See Rx Instructions .MEDSUPPLY Qty: 9 3RF Rx Instructions: change every 10 days furosemide 40 mg Tablet 40 mg PO BID acetaminophen 325 mg Tablet 650 mg PO Q6H PRN (Reason: Pain) albuterol sulfate 2.5 mg /3 mL (0.083 %) Solution For Nebulization 2.5 mg INHALATION BID albuterol sulfate 2.5 mg /3 mL (0.083 %) Solution For Nebulization 2.5 mg INHALATION Q6H PRN (Reason: Shortness Of Breath Or Wheezing) cetirizine 10 mg Tablet 10 mg PO DAILY cetirizine 5 mg Tablet 5 mg PO DAILY PRN (Reason: ALLERGIES) Senokot-S 8.6-50 mg Tablet 1 tab-cap PO BEDTIME PRN (Reason: Constipation) melatonin 3 mg Tablet 3 mg PO BEDTIME PRN (Reason: Sleep) Milk of Magnesia 400 mg/5 mL Suspension 30 ml PO DAILY PRN (Reason: Constipation) Dulcolax (bisacodyl) 10 mg Suppository 10 mg VA DAILY PRN (Reason: Constipation) Fleet Enema 19-7 gram/118 mL Enema 118 ml VA DAILY PRN (Reason: Constipation) Miralax 17 gram/dose Powder 17 g PO DAILY midodrine 10 mg Tablet 10 mg PO TID Rx Instructions: do not give last dose of day after 6PM or within 4 hrs of bedtime insulin lispro 100 unit/mL Insulin Pen See Rx Instructions .ROUTE .COMPLEX Rx Instructions: TAKE 4 TIMES DAILY PER SLIDING SCALE: 151-200= 4 UNITS, 201-250= 8 UNITS, 251-300= 10 UNITS, 301-350= 12 UNITS, 351-400= 16 UNITS, BS OVER 400=16 UNITS AND CALL MD. ramelteon 8 mg Tablet 8 mg PO BEDTIME cholecalciferol (vitamin D3) 1,250 mcg (50,000 unit) Capsule 1,250 mcg PO Q7D Rx Instructions: ON SATURDAY Jardiance 10 mg Tablet 10 mg PO QAM Changed gabapentin 300 mg Capsule 300 mg PO TID Qty: 30 0RF Discontinued carvedilol 3.125 mg Tablet 3.125 mg PO BID Rx Instructions: must administer with a meal/food digoxin 125 mcg (0.125 mg) Tablet 125 mcg PO DAILY insulin lispro 100 unit/mL Insulin Pen See Rx Instructions .ROUTE .COMPLEX Rx Instructions: TAKE 15 UNITS SUBCUTANEOUSLY 3 TIMES DAILY ALONG WITH SLIDING ACALE NEEDED. insulin glargine 100 unit/mL (3 mL) Insulin Pen 60 unit SUBCUT DAILY metolazone 2.5 mg Tablet 2.5 mg PO DAILY levothyroxine 50 mcg Tablet 50 mcg PO DAILY Discharge Orders: Discharge Order (Routine); Ordered 12/17/23 Ordered By: Tri Dunne Other Ambulatory Orders: Basic Metabolic Panel (Routine) Timeframe: 3 Days Facility: [facility] - Location: Lab - Main Lab Ordered By: Tri Dunne Thyroid Stimulating Hormone (Routine) Timeframe: 5 Weeks Facility: [facility] - Location: Lab - Main Lab Ordered By: Jacqui Mesa Referrals: Alverto Qureshi M.D [Physician] - 1 month (During your appointment with Jennifer Mungiua you will be scheduled for an appointment with Dr. Qureshi.) Gabrielle Marr MD [Hospitalist] - 2 weeks (We have notified your physician's clinic of the need for a follow-up appointment to be scheduled. If you have not heard from them within the next 2 business days, please call them directly. ) Karla Ryan MD [Primary Care Provider] - Jennifer Munguia FNP [Nurse Practitioner] - 12/30/23 2:00 pm Pete Khan DO [Physician] - Discharge Diet: Cardiac and Diabetic Discharge Activity: Increase activity as tolerated and As per PT/OT instructions Patient Instructions: Metoprolol (By mouth), Levothyroxine (By mouth), Insulin Glargine (By injection) (Lantus, Lantus SoloStar, Toujeo, Semglee), Heart Failure (DC), Urinary Tract Infection in Men (DC), Chronic Kidney Disease (DC), Transesophageal Echocardiogram (DC), CHF Stoplight Discharge Attestations Time Spent in Discharge Care*: greater than 30 min Quality Metrics Clinical Quality Measures [ No reported AMI, CVA or VTE this stay] Coding Level of Care Code 14518 Total time (in minutes) for Discharge: 35 Diagnoses Chronic kidney disease N18.9 CAPRI (acute kidney injury) N17.9
--- NOTE | 2023-12-18 14:23 | PICC.NOTE ---
Single lumen PICC placed to right brachial vein. Referred to vascular access nurse for PICC placement due to need for IV Vancomycin x 6 weeks. PICC placed to left brachial vein unable to flush yesterday and dc'd. Risks and benefits discussed and informed consent obtained from patient. Right arm assessed with right brachial vein measuring 4.4 mm, straight, and apparent best choice for placement. Using sterile technique and MST, right brachial vein accessed x 1 stick. Mid-arm circumference measured 10 cm from right AC 43 cm. Trimmed cath 45 cm with 0 cm external length noted. CXR shows tip in SVC, in good position for use per radiologist. Line secured with stat-lock. Insertion site covered with Biopatch and TSM. PICC flushes without difficulty and has good blood return at this time. Report given to bedside nurse, JONO Mcallister. Dr. Dunne updated on successful placement of PICC. [facility] PICC report to be sent with pt discharge paper work.
--- NOTE | 2023-12-18 14:31 | PC.NURSE ---
Nursing sridhar 10ml's of blood out of his PICC line to waste. Flushed PICC line with 20ml's of NS at 1430.
--- NOTE | 2023-12-18 14:49 | PC.NURSE ---
Called updated report to JONO Heard at [facility].
--- NOTE | 2023-12-18 15:05 | PC.OT ---
PATIENT SCHEDULED FOR D/C TODAY; OT TREATMENT HELD
--- NOTE | 2023-12-18 15:12 | PC.NURSE ---
Patient left via [facility] transportation and an electric wheelchair.
== END 2023-12-18 15:12 | disposition skilled nursing facility (03) | DRG 690 ==
LOC: ER 10:03 → MEDSURG 15:59 → ICU 12-12 09:30 → CSU 12-13 06:26
PROVIDERS: Hospitalist; Internal Medicine; Admitting Provider Hospitalist; Emergency Provider Emergency Medicine; PCP Family Medicine; Visit Provider Internal Medicine
PROC: (CPT 93312; principal; 2023-12-17 10:00)
DX: N39.0 Urinary tract infection, site not specified (principal); N17.9 Acute kidney failure, unspecified; I13.0 Hypertensive heart and chronic kidney disease with heart failure and stage 1 through stage 4 chronic kidney disease, or unspecified chronic kidney disease; I50.42 Chronic combined systolic (congestive) and diastolic (congestive) heart failure; J96.12 Chronic respiratory failure with hypercapnia; Z68.41 Body mass index [BMI] 40.0-44.9, adult; T82.514A Breakdown (mechanical) of infusion catheter, initial encounter; R78.81 Bacteremia; E87.1 Hypo-osmolality and hyponatremia; I24.89 Other forms of acute ischemic heart disease; E87.20 Acidosis, unspecified; R00.1 Bradycardia, unspecified; T46.0X5A Adverse effect of cardiac-stimulant glycosides and drugs of similar action, initial encounter; I95.9 Hypotension, unspecified; I25.10 Atherosclerotic heart disease of native coronary artery without angina pectoris; I25.5 Ischemic cardiomyopathy; E11.22 Type 2 diabetes mellitus with diabetic chronic kidney disease; E11.40 Type 2 diabetes mellitus with diabetic neuropathy, unspecified; N18.2 Chronic kidney disease, stage 2 (mild); J44.9 Chronic obstructive pulmonary disease, unspecified; G47.30 Sleep apnea, unspecified; E03.9 Hypothyroidism, unspecified; E66.01 Morbid (severe) obesity due to excess calories; E78.5 Hyperlipidemia, unspecified; Y82.9 Unspecified medical devices associated with adverse incidents; B95.8 Unspecified staphylococcus as the cause of diseases classified elsewhere; R33.9 Retention of urine, unspecified; I48.91 Unspecified atrial fibrillation; N20.0 Calculus of kidney; E87.6 Hypokalemia; G47.00 Insomnia, unspecified; I25.2 Old myocardial infarction; Z11.52 Encounter for screening for COVID-19; Z79.4 Long term (current) use of insulin; Z79.82 Long term (current) use of aspirin; Z95.5 Presence of coronary angioplasty implant and graft; Z95.810 Presence of automatic (implantable) cardiac defibrillator; Z86.16 Personal history of COVID-19; Z87.01 Personal history of pneumonia (recurrent); Z87.891 Personal history of nicotine dependence
CPT/HCPCS: 36415; 36416; 36573; 36600; 51702; 51798; 70450; 71045; 72020; 72125; 74176; 80048; 80051; 80053; 80162; 80202; 81001; 82330; 82533; 82550; 82805; 82962; 83605; 83690; 83735; 83880; 84100; 84439; 84443; 84481; 84484; 84550; 85025; 85610; 85730; 87040; 87077; 87086; 87150; 87186; 87205; 87426; 93005; 93306; 93312; 93320; 93325; 94660; 96365; 96372; 96376; 97161; 97166; 97530; 97535; 99285; C8924; J0696; J1170; J1644; J1815; J1940; J2543; J2704; J2997; J3370; J3372; J7030; Q3014; Q9956

== ENCOUNTER → 2023-12-30 13:45 | Outpatient (BNVA) | payer OTHER, MEDICARE, MEDICAID, SELFPAY | PROVIDERS: PCP Family Medicine; Visit Provider Nurse Practitioner Family | DX: I13.0 Hypertensive heart and chronic kidney disease with heart failure and stage 1 through stage 4 chronic kidney disease, or unspecified chronic kidney disease (principal); E11.22 Type 2 diabetes mellitus with diabetic chronic kidney disease; N18.2 Chronic kidney disease, stage 2 (mild); Z87.891 Personal history of nicotine dependence; Z79.4 Long term (current) use of insulin; I50.42 Chronic combined systolic (congestive) and diastolic (congestive) heart failure; Z95.810 Presence of automatic (implantable) cardiac defibrillator; I25.10 Atherosclerotic heart disease of native coronary artery without angina pectoris | CPT/HCPCS: 93298; 99214 ==

== ENCOUNTER 2024-01-23 12:59 | Emergency (ER) | payer OTHER, SELFPAY ==
[2024-01-23] VITALS (7 sets, daily range): BP systolic 105–112; BP diastolic 71–79; PULSE 81–105; RESP 18–20; TEMP 36.8; O2SAT 88–98; BMI 46.5
--- NOTE | 2024-01-23 13:38 | XRR_ITS ---
PROCEDURE INFORMATION: Exam: XR Chest Exam date and time: 01/23/2024 2:04 PM Age: 58 years old Clinical indication: Shortness of breath; Additional info: SOB TECHNIQUE: Imaging protocol: Radiologic exam of the chest. Views: 1 view. COMPARISON: CR XR chest 1V portable [id number] 12/17/2023 1:22 PM FINDINGS: Tubes, catheters and devices: Single chamber pacemaker/cardioverter tip at right ventricle, stable. Right PICC line tip at cavoatrial junction. Airway: Patent Lungs: Pulmonary vascular congestion and perihilar/basal prominent interstitial markings. Pleural spaces: Unremarkable. No pleural effusion. No pneumothorax. Heart/Mediastinum: Mild cardiomegaly, stable. Bones/joints: No acute skeletal abnormality or aggressive osseous lesion. XR/XR chest 1V portable [id number] IMPRESSION: Pulmonary vascular congestion and perihilar/basal prominent interstitial markings. Concerning for early interstitial pulmonary edema.
--- NOTE | 2024-01-23 13:39 | ECG_ITS ---
[facility] Test Date: 2024-01-23 Pat Name: Param Tejada Department: Room: Gender: Male Director Learning And Development: : 1965 Requested By: Nehemiah Blanco Order Number: [id number] Recio MD: Juan Carlos Peña M.D. Measurements Intervals [place] Rate: 94 P: 72 UT: 167 QRS: 133 QRSD: 66 T: 91 QT: 313 QTc: 393 Interpretive Statements SINUS RHYTHM LEFT ATRIAL ENLARGEMENT [-0.15mV P-WAVE IN V1/V2] LOW QRS VOLTAGE IN PRECORDIAL LEADS [QRS DEFLECTION < 1.0 mV IN CHEST LEADS] ANTEROLATERAL MYOCARDIAL INFARCTION , PROBABLY RECENT [40+ ms Q WAVE IN I/aVL/V3-V6] MARKED ST ELEVATION, CONSIDER INFERIOR INJURY [MARKED ST ELEVATION W/O NORMALLY INFLECTED T-WAVE IN II/aVF] ACUTE [place] Compared to ECG 12/14/2023 17:33:51 Atrial abnormality now present Low QRS voltage now present Myocardial infarct finding now present ST (T wave) deviation now present Ventricular-paced complex(es) or rhythm no longer present Electronically Signed On 01-23-2024 22:02:20 CDT by Juan Carlos Peña M.D. [email or web address]
--- NOTE | 2024-01-23 13:44 | ED.C_ITS ---
HPI - Psych 2 General: Chief Complaint: Psychiatric Symptoms Stated Complaint: si Time Seen by Provider: 01/23/24 13:06 History of Present Illness: 58-year-old male presents emergency depa rtment chief complaint of concerns of his water weight gain. Patient Dors she is depressed about this upon direct questioning he does not report he is suicidal to me he reports no current plan upon direct questioning he reports a chronic history of heart issues patient presents to the ER from an ECF for further assessment management. Patient. Per the patient's history he has no known prior history of any depression or anxiety or psychiatric issues. Review of Systems 2 General: Reports: 10 or more systems reviewed and unremarkable except in HPI and below Const: Denies: fever(s), chills, fatigue or malaise Eyes: Denies: change in vision or blurry vision Card: Denies: chest pain or palpitations Resp: Denies: productive cough GI: Denies: abdominal pain, nausea or vomiting : Denies: flank pain Musc: Denies: extremity pain or extremity swelling Skin/Breast: Denies: rash or pruritus Neuro: Denies: headache(s) Psych: Denies: anxiety Ruben/Lymph: Denies: easy bleeding All/Imm: Denies: urticaria, throat swelling or facial swelling 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 Pneumonia due to COVID-19 virus August 2023, severe treated with dexamethasone and remdesivir Staphylococcus aureus pneumonia August 2023 when had covid, also had staph lundgensis and staph epidermidis in cultures > received prolonged course of antibiotics with cefazolin via PICC per ID recommendations which completed in Sep 2023 Renal calculus history of left renal calculi and at least 2 spontaneous passage Personal history of nicotine dependence CHF (congestive heart failure) systolic and diastolic dysfunction CAD (coronary artery disease) 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 2 diabetes mellitus Insulin dependent diabetes mellitus ICD (implantable cardioverter-defibrillator) in place single chamber medtronic ICD programmed with a lower rate at 40 bpm per report 08/20/2023 Morbid obesity Obstructive sleep apnea Intolerant of home bipap COPD (chronic obstructive pulmonary disease) Ischemic cardiomyopathy Technically limited echo in 08/2023 with diffuse hypokinesis and EF 36% Hyperlipidemia Hypertension ST elevation myocardial infarction (STEMI) of inferior wall Surgical History History of cardiac catheterization ~06/2023 with no intervention performed per cardiology consult notes in 08/2023 History of appendectomy History of hernia surgery S/P knee replacement History of left knee replacement History of cardiac defibrillator placement History of coronary artery stent placement 2015 hx of CAD with inferior wall DC s/p RCA stent, LAD stent Family History Father No problems noted. Mother No problems noted. Denies family history of CAD (coronary artery disease) Social History Smoking and tobacco/nicotine status: former use of tobacco/nicotine Alcohol intake: never Substance/Drug Use: never Marital status: Single Current occupational status: disabled Do you think of yourself as: Straight/Heterosexual Physical Exam 2 Const: COMMON NORMALS: no acute distress, patient oriented x3 and healthy appearing HENMT: COMMON NORMALS: normocephalic and atraumatic HEAD & SCALP: n ormocephalic and atraumatic Eye: COMMON NORMALS: Equal, round and reactive pupils present and EOMs intact bilaterally PUPIL: Yes Equal, round and reactive pupils present Neck/C-Spine: COMMON NORMALS: full ROM, supple and no JVD Lymph: LYMPHATIC: no lymphadenopathy noted Chest: COMMONS NORMALS: normal inspection of the chest and normal palpation of entire chest wall Resp: COMMON NORMALS: normal respiratory effort (Diminished breath sounds appreciated on auscultation no obvious respiratory), No retractions and clear to auscultation bilaterally EFFORT & INSPECTION: Yes able to speak in complete sentences and Yes symmetric chest movement AUSCULTATION: clear to auscultation bilaterally Cardio: COMMON NORMALS: no JVD, regular rate and regular rhythm RATE: r egular rate RHYTHM: regular rhythm GI: COMMON NORMALS: Normal to inspection, nondistended, normoactive bowel sounds present, Soft to palpation and non-tender INSPECTION: Yes normal to inspection PALPATION: Yes Soft to palpation : COMMON NORMALS: Yes no CVA tenderness BLADDER/KIDNEY EXAM: Yes no CVA tenderness Back/Pelvis: COMMON NORMALS: no CVA tenderness Extremity: COMMON NORMALS: normal to inspection and full ROM; negative for no pedal edema (3+ pedal edema noted bilaterally) Neuro: COMMON NORMALS: patient oriented x3, CN's II-XII intact bilaterally, moves all extremities and no focal motor deficits Psych: COMMON NORMALS: mental status grossly normal, Normal thought process present, cooperative and normal affect THOUGHT PROCESS: Normal thought process present Skin: COMMON NORMALS: no rashes or lesions noted GENERAL SKIN EXAM: no rashes or lesions noted Course 2 Vital Signs: Vital signs: Vital Signs Temperature 98.2 F 01/23/24 13:00 Pulse Rate 96 01/23/24 18:19 Respiratory Rate 20 H 01/23/24 18:19 Blood Pressure 110/75 01/23/24 17:30 Pulse Oximetry 91 01/23/24 18:19 Oxygen Delivery Me thod Nasal Cannula 01/23/24 18:19 Oxygen Flow Rate 2 01/23/24 18:19 MDM - Psych Medical Decision Making Due to patient's symptoms and condition will be obtaining basic labs and imaging I do not believe the patient qualifies for inpatient psychiatric care as he does not report being currently homicidal or suicidal with no current plan. Will continue to follow. Patient may benefit from some antidepressant due to his chronic medical conditions that are contributing to most likely chronic depression. Patient upon reassessment now reports she is not homicidal or suicidal I did discuss patient's case with Dr. Galindo on-call for hospitalist in which reported these are chronic findings including his BNP of 5000 as well as his troponin 175 176 actually improved the EKGs are also unchanged from previous. He did recommend increasing the patient's levothyroxine as well as we can start him on some Zoloft as per Dr. Galdamez request. Patient is stable for discharge home at this time to devise further follow-up as previously instructed which instructed to return the interim if any of his symptoms persist or worse Lab Data 01/23/24 14:20 01/23/24 15:02 Radiology Impressions Chest X-Ray 01/23/24 13:38 IMPRESSION: Pulmonary vascular congestion and perihilar/basal prominent interstitial markings. Concerning for early interstitial pulmonary edema. Laboratory Results WBC 10.23 10^3/uL (3.29-11.43) 01/23/24 14:20 RBC 5.43 10^6/uL (3.85-5.65) 01/23/24 14:20 Hgb 12.40 g/dL (11.27-16.99) 01/23/24 14:20 Hct 41.0 % (37-53) 01/23/24 14:20 MCV 75.5 fl (82-101) L 01/23/24 14:20 MCH 22.8 pg (27-33) L 01/23/24 14:20 MCHC 30.2 g/dL (30-55) 01/23/24 14:20 RDW 20.3 % (12.1-15.1) H 01/23/24 14:20 Plt Count 242 10^3/cmm (157-399) 01/23/24 14:20 MPV 9.9 fL (7.4-10.4) 01/23/24 14:20 Neut % (Auto) 59.6 % 01/23/24 14:20 Lymph % (Auto) 7.3 % 01/23/24 14:20 [place] % (Auto) 11.6 % 01/23/24 14:20 Eos % (Auto) 18.7 % 01/23/24 14:20 Baso % (Auto) 2.4 % 01/23/24 14:20 Neut # (Auto) 6.09 10^3/uL (1.8-7.7) 01/23/24 14:20 Lymph # (Auto) 0.8 10^3/uL (0.8-4.8) 01/23/24 14:20 [place] # (Auto) 1.2 10^3/uL (0.2-0.9) H 01/23/24 14:20 Eos # (Auto) 1.9 10^3/uL (0.0-0.8) H 01/23/24 14:20 Baso # (Auto) 0.3 10^3/uL (0.0-0.1) H 01/23/24 14:20 Nucleated RBC % (auto) 0 % 01/23/24 14:20 Nucleated RBCs # 0.0 /100WBC 01/23/24 14:20 Sodium 133 mmol/L (136-145) L 01/23/24 15:02 Potassium 4.4 mmol/L (3.5-5.1) 01/23/24 15:02 Chloride 90 mmol/L (98-107) L 01/23/24 15:02 Carbon Dioxide 24 mmol/L (22-29) 01/23/24 15:02 Anion Gap 23.4 (5-19) H 01/23/24 15:02 BUN 55 mg/dL (6-20) H 01/23/24 15:02 Creatinine 3.0 mg/dL (0.7-1.2) H 01/23/24 15:02 GFR Calculation 21.5 mL/min (90-130) L 01/23/24 15:02 Glucose 228 mg/dL (65-115) H 01/23/24 15:02 Calculated Osmolality 298 mOsm/kg (285-295) H 01/23/24 15:02 Calcium 9.7 mg/dL (8.5-10.5) 01/23/24 15:02 Total Bilirubin 0.9 mg/dL (0.15-1.2) 01/23/24 15:02 AST 25 U/L (0-40) 01/23/24 15:02 ALT 11 U/L (0-41) 01/23/24 15:02 Alkaline Phosphatase 89 U/L (40-130) 01/23/24 15:02 Troponin T Baseline 175 ng/L (0-15) H* 01/23/24 15:02 Troponin T 120 Minute 181.7 ng/L (0-15) H 01/23/24 17:00 Delta Troponin T 6.7 ABS# (0-10) 01/23/24 17:00 C-Reactive Protein 64.9 mg/L (0.0-4.9) H 01/23/24 15:02 NT-Pro-B Natriuret Pep 5530 pg/mL (0-125) H 01/23/24 15:02 Total Protein 6.6 g/dL (6.6-8.7) 01/23/24 15:02 Albumin 3.3 g/dL (3.5-5.2) L 01/23/24 15:02 Globulin 3.3 g/dL (1.3-4.6) 01/23/24 15:02 Lipase 18 U/L (13-60) 01/23/24 15:02 Urine Color Yellow (Yellow) 01/23/24 13:42 Urine Appearance Clear (CLEAR) 01/23/24 13:42 Urine pH 5 (5-7) 01/23/24 13:42 Ur Specific [place] 1.015 (1.005-1.030) 01/23/24 13:42 Urine Protein Neg (Negative) 01/23/24 13:42 Urine Glucose (UA) Norm (Normal) 01/23/24 13:42 Urine Ketones Negative (Negative) 01/23/24 13:42 Urine Blood Neg (Negative) 01/23/24 13:42 Urine Nitrate Negative (Negative) 01/23/24 13:42 Urine Bilirubin Neg (Negative) 01/23/24 13:42 Urine Urobilinogen Norm mg/dL (Negative) 01/23/24 13:42 Ur Leukocyte Esterase 1+ (Negative) H 01/23/24 13:42 Urine RBC 0-4 /hpf (0-2) H 01/23/24 13:42 Urine WBC 5-10 /hpf (0-5) H 01/23/24 13:42 Ur Squamous Epith Cells Rare /hpf (0-5) 01/23/24 13:42 Amorphous Sediment Not Reportable 01/23/24 13:42 Urine Bacteria Trace /hpf (NONE) 01/23/24 13:42 Salicylates < 0.3 mg/dL (3-10) L 01/23/24 15:02 Urine Opiates Screen Negative ng/mL (Negative) 01/23/24 13:42 Acetaminophen < 5.0 ug/mL (10-30) L 01/23/24 15:02 Ur Barbiturates Screen Negative ng/mL (Negative) 01/23/24 13:42 Ur Phencyclidine Scrn Negative ng/mL (Negative) 01/23/24 13:42 Ur Amphetamines Screen Negative ng/mL (Negative) 01/23/24 13:42 U Benzodiazepines Scrn Negative ng/mL (Negative) 01/23/24 13:42 Urine Cocaine Screen Negative ng/mL (Negative) 01/23/24 13:42 U Marijuana (THC) Screen Negative ng/mL (Negative) 01/23/24 13:42 All radiology interpretation(s) finalized by discharge Discharge Plan Discharge Patient Disposition: Home Clinical Impression: Depression, Chronic congestive heart failure, Troponin level elevated Condition: Stable Prescriptions: New Zoloft 25 mg tablet 25 mg PO DAILY Qty: 30 0RF levothyroxine 125 mcg capsule 125 mcg PO DAILY Qty: 30 0RF No Action aspirin 81 mg tablet,delayed release (DR/EC) 81 mg PO QAM (DME) Dexcom G6 Product Line Manager Misc See Rx Instructions miscellaneous .MEDSUPPLY Qty: 1 3RF Rx Instructions: change every 90 days (DME) Dexcom G6 Transmitter Device See Rx Instructions .MEDSUPPLY Qty: 3 3RF Rx Instructions: change every 3 months (DME) Dexcom G6 Sensor Device See Rx Instructions .MEDSUPPLY Qty: 9 3RF Rx Instructions: change every 10 days acetaminophen 325 mg Tablet 650 mg PO Q6H PRN (Reason: Pain) albuterol sulfate 2.5 mg /3 mL (0.083 %) Solution For Nebulization 2.5 mg INHALATION BID albuterol sulfate 2.5 mg /3 mL (0.083 %) Solution For Nebulization 2.5 mg INHALATION Q6H PRN (Reason: Shortness Of Breath Or Wheezing) cetirizine 10 mg Tablet 10 mg PO DAILY magnesium hydroxide [Milk of Magnesia] 400 mg/5 mL Suspension 30 ml PO DAILY PRN (Reason: Constipation) bisacodyl [Dulcolax (bisacodyl)] 10 mg Suppository 10 mg UT DAILY PRN (Reason: Constipation) Fleet Enema 19-7 gram/118 mL Enema 118 ml UT DAILY PRN (Reason: Constipation) polyethylene glycol 3350 [Miralax] 17 gram/dose Powder 17 g PO DAILY midodrine 10 mg Tablet 10 mg PO TID Rx Instructions: do not give last dose of day after 6PM or within 4 hrs of bedtime insulin lispro 100 unit/mL Insulin Pen 10 unit SUBCUT TID ramelteon 8 mg Tablet 8 mg PO BEDTIME cholecalciferol (vitamin D3) 1,250 mcg (50,000 unit) Capsule 1,250 mcg PO Q7D Rx Instructions: ON SATURDAY gabapentin 300 mg Capsule 300 mg PO TID Qty: 30 0RF metoprolol succinate 25 mg capsule,sprinkle,ER 24hr 25 mg PO DAILY Qty: 30 0RF bumetanide 2 mg Tablet 2 mg PO BID metolazone 5 mg Tablet 5 mg PO DAILY spironolactone 25 mg Tablet 25 mg PO DAILY levothyroxine 75 mcg Tablet 75 mcg PO DAILY Probiotic 10 billion cell Capsule 10,000 mmu cells PO DAILY potassium chloride 20 mEq Tablet Extended Release 40 meq PO .@NOON Ozempic 0.25 mg or 0.5 mg (2 mg/3 mL) Pen Injector 0.25 mg SUBCUT Q7D Lantus U-100 Insulin 100 unit/mL solution 35 unit SUBCUT BEDTIME Discharge Orders: Discharge ED (Routine); Ordered 01/23/24 Ordered By: Nehemiah Blanco Referrals: Karla Ryan MD [Primary Care Provider] - 1-3 days Patient Instructions: Heart Failure (ED), Depression (ED) Activity Restrictions/Additional Instructions: Your lab work and imaging today was reviewed with the hospitalist and which appears to be chronic in nature including your BNP in around the 5000 region as well as your elevated cardiac troponin you have been recent been seen by cardiology that recommends maximal medical therapy. You have been started on a higher dose of your thyroid medication per the hospitalist as well as started on some Zoloft for on-call psych recommendations. At this time is recommended for you to discontinue the lower dose levothyroxine you are already prescribed. Please further follow-up with your primary care doctor in 2 to 3 days in which to return the interim if any of your symptoms persist or worse. 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
--- NOTE | 2024-01-23 13:45 | PC.PHAR ---
PT IS FROM [facility] [place]
[2024-01-23 14:17] LABS: Amphetamines Screen Urine Negative (Negative); Barbiturates Screen Urine Negative (Negative); Benzodiazepines Screen Urine Negative (Negative); Cocaine Screen Urine Negative (Negative); Opiate Screen Urine Negative (Negative); PCP Screen Urine Negative (Negative); THC Screen Urine Negative (Negative)
[2024-01-23] MEDS: sodium chloride 0.9% 500 ML IV (14:21)
[2024-01-23 14:24] LABS: Add Urine Microscopic? YES; Bilirubin Urine Neg (Negative); Blood Urine Neg (Negative); Glucose Urine UA Norm (Normal); Ketones Urine Negative (Negative); Leukocyte Esterase Urine 1+ (Negative); Nitrate Urine Negative (Negative); Protein Urine Neg (Negative); Specific Gravity, Urine 1.015 (1.005-1.030); Urine Appearance Clear (CLEAR); Urine Color Yellow (Yellow); Urobilinogen Urine Norm (Negative); pH Urine 5 (5-7)
[2024-01-23 14:25] LABS: Bacteria Urine TRACE /hpf; RBC Urine 0-4 /hpf (0-2); Squamous Epithelial Cell Urine RARE /hpf (0-5)
[2024-01-23 14:27] LABS: Basophils # 0.3 10^3/uL (0.0-0.1); Basophils % 2.4 %; Eosinophils # 1.9 10^3/uL (0.0-0.8); Eosinophils % 18.7 %; Lymphocytes # 0.8 10^3/uL (0.8-4.8); Lymphocytes % 7.3 %; Mean Corpuscular HGB Conc 30.2 g/dL (30-55); Mean Corpuscular Hemoglobin 22.8 pg (27-33); Mean Corpuscular Volume 75.5 fl (82-101); Mean Platelet Volume 9.9 fL (7.4-10.4); Monocytes # 1.2 10^3/uL (0.2-0.9); Monocytes % 11.6 %; Neutrophils # 6.09 10^3/uL (1.8-7.7); Neutrophils % 59.6 %; Nucleated Red Blood Cells % 0 %; Platelet Count 242 10^3/cmm (157-399); Red Blood Count 5.43 10^6/uL (3.85-5.65); Red Cell Distribution Width 20.3 % (12.1-15.1); White Blood Count 10.23 10^3/uL (3.29-11.43)
[2024-01-23 15:48] LABS: Troponin(5th) Baseline 175 ng/L (0-15)
--- NOTE | 2024-01-23 16:10 | ECG_ITS ---
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 Measurements Intervals [place] Rate: 97 P: 69 CO: 165 QRS: 100 QRSD: 58 T: 92 QT: 308 QTc: 392 Interpretive Statements SINUS RHYTHM LEFT ATRIAL ENLARGEMENT [-0.15mV P-WAVE IN V1/V2] LOW QRS VOLTAGE IN PRECORDIAL LEADS [QRS DEFLECTION < 1.0 mV IN CHEST LEADS] ANTEROLATERAL MYOCARDIAL INFARCTION , PROBABLY RECENT [40+ ms Q WAVE IN I/aVL/V3-V6] MARKED ST ELEVATION, CONSIDER INFERIOR INJURY [MARKED ST ELEVATION W/O NORMALLY INFLECTED T-WAVE IN II/aVF] ACUTE [place] Compared to ECG 01/23/2024 13:52:11 No significant changes Electronically Signed On 01-23-2024 22:04:13 CDT by Juan Carlos Peña M.D. [id number]
[2024-01-23 16:17] LABS: Alanine Aminotransferase 11 U/L (0-41); Albumin Level 3.3 g/dL (3.5-5.2); Alkaline Phosphatase 89 U/L (40-130); Aspartate Amino Transferase 25 U/L (0-40); Blood Urea Nitrogen 55 mg/dL (6-20); C Reactive Protein 64.9 mg/L (0.0-4.9); Calcium 9.7 mg/dL (8.5-10.5); Carbon Dioxide 24 mmol/L (22-29); Chloride 90 mmol/L (98-107); Creatinine Clr Calc Pharmacy 32.8884; Globulin 3.3 g/dL (1.3-4.6); Glomerular Filtration Rate 21.5 mL/min (90-130); Glucose 228 mg/dL (65-115); Lipase 18 U/L (13-60); Osmolality Calculated 298 mOsm/kg (285-295); Sodium 133 mmol/L (136-145); Total Bilirubin 0.9 mg/dL (0.15-1.2); Total Protein 6.6 g/dL (6.6-8.7)
[2024-01-23 16:18] LABS: Acetaminophen < 5.0 ug/mL (10-30); Anion Gap 23.4 (5-19); Potassium 4.4 mmol/L (3.5-5.1); Salicylate < 0.3 mg/dL (3-10)
[2024-01-23] MEDS: FUROsemide 10 mg/mL SDV 10mL 60 MG IVP (16:34)
[2024-01-23 16:40] LABS: NT Pro B Type Natriuretic Pept 5530 pg/mL (0-125)
[2024-01-23 17:23] LABS: Troponin 5 2HR Delta 6.7 ABS# (0-10)
[2024-01-23 17:24] LABS: Troponin 5 2HR 181.7 ng/L (0-15)
[2024-01-23] MEDS: ipratropium-albuterol 3 mL Neb INHALATION (18:13)
--- NOTE | 2024-01-23 18:51 | ECG_ITS ---
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 Measurements Intervals [place] Rate: 101 P: 24 [place]: 168 QRS: -39 QRSD: 57 T: -27 QT: 292 QTc: 378 Interpretive Statements SINUS TACHYCARDIA LEFT ATRIAL ENLARGEMENT [-0.15mV P-WAVE IN V1/V2] LOW QRS VOLTAGE IN PRECORDIAL LEADS [QRS DEFLECTION < 1.0 mV IN CHEST LEADS] PROBABLE ANTERIOR MYOCARDIAL INFARCTION , OF INDETERMINATE AGE [35 ms Q WAVE IN V3/V4] INFERIOR MYOCARDIAL INFARCTION , OF INDETERMINATE AGE [40+ ms Q WAVE AND/OR ST/T ABNORMALITY IN II/aVF] MARKED ST ELEVATION, CONSIDER LATERAL INJURY [MARKED ST ELEVATION W/O NORMALLY INFLECTED T-WAVE IN I/aVL/V5/V6] ACUTE [place] Compared to ECG 01/23/2024 16:10:09Sinus rhythm no longer present Myocardial infarct finding still present ST (T wave) deviation still present Myocardial infarct finding still present Electronically Signed On 01-23-2024 22:14:03 CDT by Juan Carlos Peña M.D. [id number]
--- NOTE | 2024-01-23 20:15 | PC.NURSE ---
Pt. waiting on a medicaid ride. Pt. has oxygen.
[2024-01-23] MEDS: acetaminophen 325 mg Tablet 650 MG PO (20:56)
--- NOTE | 2024-01-23 22:54 | PC.NURSE ---
Pt. states that he is ready to go home, he states I've been in this fucking ER for 6 hours!
== END 2024-01-24 00:17 | disposition home or self-care (01) ==
PROVIDERS: Emergency Provider Emergency Medicine; PCP Family Medicine
DX: F32.A Depression, unspecified (principal); R79.89 Other specified abnormal findings of blood chemistry; Z79.82 Long term (current) use of aspirin; Z79.4 Long term (current) use of insulin; Z87.891 Personal history of nicotine dependence; Z95.810 Presence of automatic (implantable) cardiac defibrillator; I13.0 Hypertensive heart and chronic kidney disease with heart failure and stage 1 through stage 4 chronic kidney disease, or unspecified chronic kidney disease; E11.22 Type 2 diabetes mellitus with diabetic chronic kidney disease; N18.2 Chronic kidney disease, stage 2 (mild); I50.9 Heart failure, unspecified; I25.10 Atherosclerotic heart disease of native coronary artery without angina pectoris; E78.5 Hyperlipidemia, unspecified; I25.5 Ischemic cardiomyopathy; I25.2 Old myocardial infarction; J44.9 Chronic obstructive pulmonary disease, unspecified
CPT/HCPCS: 36415; 51702; 71045; 80053; 80306; 80307; 81001; 83690; 83880; 84484; 85025; 86140; 93005; 94640; 96374; 99285; J1940; J7040

== ENCOUNTER 2024-01-29 08:02 | Inpatient (IN) | payer OTHER, SELFPAY ==
[2024-01-29] VITALS (18 sets, daily range): BP systolic 97–129; BP diastolic 58–86; PULSE 0–96; RESP 14–28; TEMP 36.4–36.8; O2SAT 92–100; BMI 43.2
--- NOTE | 2024-01-29 08:31 | XR_ITS ---
WS: [id number] Exam: XR chest 1V portable [id number] Date/Time of Exam: 01/29/2024 8:33 AM Reason For Exam: dyspnea/cough Comparison 01/23/2024. Heart size top limits normal. Increased pulmonary vascularity. The pattern is unchanged. No pneumotho rax or pleural effusion. A cardiac pacer superimposes the LEFT chest. The chest is rotated. Bony stru ctures are unremarkable as visualized. IMPRESSION1. Increased pulmonary vascularity. The pattern is unchanged since the last study. 2. No consolidating infiltrates or pneumothorax.
--- NOTE | 2024-01-29 08:33 | ED_ITS ---
HPI - Weakness 2 General: Chief complaint: Weakness Stated complaint: low kidney function Time Seen by Provider: 01/29/24 08:15 Source: patient Mode of arrival: EMS History of Present Illness: 58-year-old male presents to the emergen cy room for weakness decline in kidney function. Patient has known chronic kidney disease he was recently discharged [facility] the [place] [facility] from the hospitalization here on December 17. Presents today with report of abnormal labs increasing swelling and weakness at the [place] [facility] he denies chest pain. No report of fever. He is chronically on oxygen when initially seen the patient he is on 5 L we are able to titrate him down to 2 L and he maintain sats in the mid 90s. He denies chest pain or shortness of breath does have some mild abdominal discomfort and significant amount of abdominal distention. He has a Burciaga catheter in place there is urine in the bag that appears normal. Reviewed his previous hospitalization he did grow staph hemolyticus of 2 out of 3 blood culture bottles and was discharged home on vancomycin for 6 weeks which she should be near completion of. While in the hospital recently did have a NANCY which did not show any vegetations on the valves. Echo showed an EF of 36% this was unchanged from previous evaluations. He did see nephrology while he was here he has not been initiated on dialysis. 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 Pneumonia due to COVID-19 virus August 2023, severe treated with dexamethasone and remdesivir Staphylococcus aureus pneumonia August 2023 when had covid, also had staph lundgensis and staph epidermidis in cultures > received prolonged course of antibiotics with cefazolin via PICC per ID recommendations which completed in Sep 2023 Renal calculus history of left renal calculi and at least 2 spontaneous passage Personal history of nicotine dependence CHF (congestive heart failure) systolic and diastolic dysfunction CAD (coronary artery disease) 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 2 diabetes mellitus Insulin dependent diabetes mellitus ICD (implantable cardioverter-defibrillator) in place single chamber medtronic ICD programmed with a lower rate at 40 bpm per report 08/20/2023 Morbid obesity Obstructive sleep apnea Intolerant of home bipap COPD (chronic obstructive pulmonary disease) Ischemic cardiomyopathy Technically limited echo in 08/2023 with diffuse hypokinesis and EF 36% Hyperlipidemia Hypertension ST elevation myocardial infarction (STEMI) of inferior wall Surgical History History of cardiac catheterization ~06/2023 with no intervention performed per cardiology consult notes in 08/2023 History of appendectomy History of hernia surgery S/P knee replacement History of left knee replacement History of cardiac defibrillator placement History of coronary artery stent placement 2015 hx of CAD with inferior wall CT s/p RCA stent, LAD stent Family History Father No problems noted. Mother No problems noted. Denies family history of CAD (coronary artery disease) Social History Smoking and tobacco/nicotine status: former use of tobacco/nicotine Alcohol intake: never Substance/Drug Use: never Marital status: Single Current occupational status: disabled Do you think of yourself as: Straight/Heterosexual Course 2 Vital Signs: Vital signs: Vital Signs Temperature 97.8 F 01/30/24 04:00 Pulse Rate 100 01/30/24 06:00 Respiratory Rate 19 H 01/30/24 06:00 Blood Pressure 105/77 01/30/24 06:00 Pulse Oximetry 96 01/30/24 06:00 Oxygen Delivery Me thod BiPAP 01/30/24 06:00 Fraction of Inspir ed Oxygen 28 01/30/24 06:00 MDM - Weakness Medical Decision Making Verified with the [place] [facility] that the last dose of vancomycin was 614. His trough at that time was 18. Acute kidney injury hypercapnic respiratory failure exacerbation COPD. Patient started on BiPAP Lasix given for diuresis. He has a history of ischemic cardiomyopathy with severely depressed ejection fraction. Reviewed with the hospitalist orders written for admission. Medical Records I reviewed the patient's medical records. Lab Data I reviewed the patient's lab results. 01/29/24 08:25 01/29/24 08:25 Radiology Impressions Abdomen/Pelvis CT 01/29/24 11:16 IMPRESSION: 1. Volume overload including body wall edema, moderate ascites, and small right pleural effusion. 2. Nodular contour of the liver may reflect cirrhosis or maybe artifactual in the setting of streak artifact. Laboratory Results WBC 11.78 10^3/uL (3.29-11.43) H 01/29/24 08:25 RBC 5.90 10^6/uL (3.85-5.65) H 01/29/24 08:25 Hgb 13.40 g/dL (11.27-16.99) 01/29/24 08:25 Hct 44.9 % (37-53) 01/29/24 08:25 MCV 76.1 fl (82-101) L 01/29/24 08:25 MCH 22.7 pg (27-33) L 01/29/24 08:25 MCHC 29.8 g/dL (30-55) L 01/29/24 08:25 RDW 20.7 % (12.1-15.1) H 01/29/24 08:25 Plt Count 370 10^3/cmm (157-399) 01/29/24 08:25 MPV 9.7 fL (7.4-10.4) 01/29/24 08:25 Neut % (Auto) 63.2 % 01/29/24 08:25 Lymph % (Auto) 7.5 % 01/29/24 08:25 Wallace % (Auto) 13.7 % 01/29/24 08:25 Eos % (Auto) 12.8 % 01/29/24 08:25 Baso % (Auto) 2.2 % 01/29/24 08:25 Neut # (Auto) 7.45 10^3/uL (1.8-7.7) 01/29/24 08:25 Lymph # (Auto) 0.9 10^3/uL (0.8-4.8) 01/29/24 08:25 Wallace # (Auto) 1.6 10^3/uL (0.2-0.9) H 01/29/24 08:25 Eos # (Auto) 1.5 10^3/uL (0.0-0.8) H 01/29/24 08:25 Baso # (Auto) 0.3 10^3/uL (0.0-0.1) H 01/29/24 08:25 Nucleated RBC % (auto) 0 % 01/29/24 08:25 Nucleated RBCs # 0.0 /100WBC 01/29/24 08:25 Specimen Type Arterial 01/29/24 08:48 Sample Site Brachial, right 01/29/24 08:48 ABG pH 7.33 (7.35-7.45) L 01/29/24 08:48 ABG pCO2 58.8 mmHg (35-45) H 01/29/24 08:48 ABG pO2 67.1 mmHg (80.0-100.0) L 01/29/24 08:48 ABG PO2/FiO2 Ratio 0 01/29/24 08:48 ABG HCO3 31.2 mmol/L (22-26) H 01/29/24 08:48 ABG O2 Saturation 92.5 01/29/24 08:48 ABG Base Excess 3.7 mmol/L (-2.0-2.0) H 01/29/24 08:48 Jj Test N/a 01/29/24 08:48 A-a O2 Gradient 8.2 mmHg (5-10) 01/29/24 08:48 Hematocrit 41.9 % (42-52) L 01/29/24 08:48 Hgb O2 Saturation 90.9 % (95-100) L 01/29/24 08:48 Carboxyhemoglobin 1.8 %THgb (0.4-20.1) 01/29/24 08:48 Methemoglobin 0.0 % (0.4-1.5) L 01/29/24 08:48 Total Hemoglobin 13.7 g/dL (14-18) L 01/29/24 08:48 Sodium 139.0 mmol/L (131-143) 01/29/24 08:48 Potassium 4.3 mmol/L (3.5-5.0) 01/29/24 08:48 Glucose 168.0 mg/dL (70-115) H 01/29/24 08:48 Ionized Calcium 1.4 mmol/L (1.1-1.4) 01/29/24 08:48 O2 Delivery Device Nc 01/29/24 08:48 O2 Liters/Min 2.0 % 01/29/24 08:48 FiO2 28.0 % 01/29/24 08:48 Catastrophe Claims Supervisor ID glc 01/29/24 08:48 Sodium 139 mmol/L (136-145) 01/29/24 08:25 Potassium 4.4 mmol/L (3.5-5.1) 01/29/24 08:25 Chloride 92 mmol/L (98-107) L 01/29/24 08:25 Carbon Dioxide 29 mmol/L (22-29) 01/29/24 08:25 Anion Gap 22.4 (5-19) H 01/29/24 08:25 BUN 69 mg/dL (6-20) H 01/29/24 08:25 Creatinine 3.7 mg/dL (0.7-1.2) H 01/29/24 08:25 GFR Calculation 16.9 mL/min (90-130) L 01/29/24 08:25 Glucose 172 mg/dL (65-115) H 01/29/24 08:25 Calculated Osmolality 312 mOsm/kg (285-295) H 01/29/24 08:25 Lactic Acid 1.9 mmol/L (0.5-2.2) 01/29/24 08:25 Calcium 11.0 mg/dL (8.5-10.5) H 01/29/24 08:25 Magnesium 2.1 mg/dL (1.7-2.3) 01/29/24 08:25 Total Bilirubin 0.9 mg/dL (0.15-1.2) 01/29/24 08:25 AST 17 U/L (0-40) 01/29/24 08:25 ALT 10 U/L (0-41) 01/29/24 08:25 Alkaline Phosphatase 87 U/L (40-130) 01/29/24 08:25 NT-Pro-B Natriuret Pep 76350 pg/mL (0-125) H 01/29/24 08:25 Total Protein 7.0 g/dL (6.6-8.7) 01/29/24 08:25 Albumin 3.6 g/dL (3.5-5.2) 01/29/24 08:25 Globulin 3.4 g/dL (1.3-4.6) 01/29/24 08:25 Lipase 15 U/L (13-60) 01/29/24 08:25 Urine Color Yellow (Yellow) 01/29/24 08:29 Urine Appearance Cloudy (CLEAR) A 01/29/24 08:29 Urine pH 5 (5-7) 01/29/24 08:29 Ur Specific [place] 1.015 (1.005-1.030) 01/29/24 08:29 Urine Protein Neg (Negative) 01/29/24 08:29 Urine Glucose (UA) Norm (Normal) 01/29/24 08:29 Urine Ketones Negative (Negative) 01/29/24 08:29 Urine Blood 2+ (Negative) H 01/29/24 08:29 Urine Nitrate Negative (Negative) 01/29/24 08:29 Urine Bilirubin Neg (Negative) 01/29/24 08:29 Urine Urobilinogen Norm mg/dL (Negative) 01/29/24 08:29 Ur Leukocyte Esterase 2+ (Negative) H 01/29/24 08:29 Urine RBC 0-4 /hpf (0-2) H 01/29/24 08:29 Urine WBC 25-40 /hpf (0-5) H 01/29/24 08:29 Ur Squamous Epith Cells 0-4 /hpf (0-5) H 01/29/24 08:29 Amorphous Sediment Not Reportable 01/29/24 08:29 Urine Bacteria 1+ /hpf (NONE) H 01/29/24 08:29 Hyaline Casts 0-4 /lpf H 01/29/24 08:29 Fine Granular Casts 0-4 /lpf H 01/29/24 08:29 Urine Mucus 1+ /hpf 01/29/24 08:29 All radiology interpretation(s) finalized by discharge Discharge Plan Discharge Patient Disposition: Admitted As Inpatient Admit Provider: Edwige Haley Clinical Impression: CHF (congestive heart failure), Acute kidney injury superimposed on chronic kidney disease, Diabetes mellitus, type II, insulin dependent, COPD (chronic obstructive pulmonary disease), Acute and chronic respiratory failure with hypercapnia Condition: Stable Coding Level of Care Code 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
--- NOTE | 2024-01-29 08:46 | ECG_ITS ---
[facility] Test Date: 2024-01-29 Pat Name: Param Tejada Department: Room: Gender: Male Optimization Manager: : 1965 Requested By: Blayne Boone Order Number: [id number] Almita MD: Errol Schmitt M.D. Measurements Intervals [place]yer Rate: 93 P: 82 OH: 170 QRS: 134 QRSD: 68 T: 86 QT: 314 QTc: 391 Interpretive Statements SINUS RHYTHM possible atrial pacemaker LEFT ATRIAL ENLARGEMENT [-0.15mV P-WAVE IN V1/V2] LOW QRS VOLTAGE IN PRECORDIAL LEADS [QRS DEFLECTION < 1.0 mV IN CHEST LEADS] ANTEROLATERAL MYOCARDIAL INFARCTION , PROBABLY RECENT [40+ ms Q WAVE IN I/aVL/V3-V6] MARKED ST ELEVATION, CONSIDER INFERIOR INJURY [MARKED ST ELEVATION W/O NORMALLY INFLECTED T-WAVE IN II/aVF] Compared to ECG 01/23/2024 18:52:26 Sinus tachycardia no longer present Myocardial infarct finding still present ST (T wave) deviation still present Electronically Signed On 01-31-2024 13:28:14 CDT by Errol Schmitt M.D. [email or web address]
[2024-01-29 08:48] LABS: Basophils # 0.3 10^3/uL (0.0-0.1); Basophils % 2.2 %; Eosinophils # 1.5 10^3/uL (0.0-0.8); Eosinophils % 12.8 %; Hematocrit 44.9 % (37-53); Lymphocytes # 0.9 10^3/uL (0.8-4.8); Lymphocytes % 7.5 %; Mean Corpuscular HGB Conc 29.8 g/dL (30-55); Mean Corpuscular Hemoglobin 22.7 pg (27-33); Mean Corpuscular Volume 76.1 fl (82-101); Mean Platelet Volume 9.7 fL (7.4-10.4); Monocytes # 1.6 10^3/uL (0.2-0.9); Monocytes % 13.7 %; Neutrophils # 7.45 10^3/uL (1.8-7.7); Neutrophils % 63.2 %; Nucleated Red Blood Cells % 0 %; Platelet Count 370 10^3/cmm (157-399); Red Cell Distribution Width 20.7 % (12.1-15.1); White Blood Count 11.78 10^3/uL (3.29-11.43)
--- NOTE | 2024-01-29 08:49 | PC.NURSE ---
Call to the nurse Mary at [facility]. She states that patient completed his 6 weeks of Vanc 01/24/24 and his last troph was on 01/21/24 and it was 18. Reported to Dr. Lofton.
[2024-01-29 08:57] LABS: Lactic Sepsis W/Reflex 1.9 mmol/L (0.5-2.2)
[2024-01-29 09:00] LABS: ABG PCO2 58.8 mmHg (35-45); ABG PH Result 7.33 (7.35-7.45); Alveolar-Arterial Oxygen Gradi 8.2 mmHg (5-10); Arterial Blood Gas Hematocrit 41.9 % (42-52); Base Excess ABG 3.7 mmol/L (-2.0-2.0); Blood Gas Operator Identificat glc; Blood Gas Sample Site Brachial, right; Blood Gas Sample Type Arterial; Carboxyhemoglobin 1.8 %THgb (0.4-20.1); HCO3 ABG 31.2 mmol/L (22-26); HGB O2 Sat 90.9 % (95-100); Ionized Calcium Level - ABG 1.4 mmol/L (1.1-1.4); Oxygen Device NC; Oxygen Saturation ABG 92.5; PO2 ABG 67.1 mmHg (80.0-100.0); PO2 FiO2 Ratio Arterial Blood 0; Potassium Level - ABG 4.3 mmol/L (3.5-5.0); Total Hemoglobin 13.7 g/dL (14-18)
[2024-01-29 09:06] LABS: Alanine Aminotransferase 10 U/L (0-41); Albumin Level 3.6 g/dL (3.5-5.2); Alkaline Phosphatase 87 U/L (40-130); Anion Gap 22.4 (5-19); Aspartate Amino Transferase 17 U/L (0-40); Blood Urea Nitrogen 69 mg/dL (6-20); Carbon Dioxide 29 mmol/L (22-29); Chloride 92 mmol/L (98-107); Creatinine Clr Calc Pharmacy 25.5629; Globulin 3.4 g/dL (1.3-4.6); Glomerular Filtration Rate 16.9 mL/min (90-130); Glucose 172 mg/dL (65-115); Lipase 15 U/L (13-60); Magnesium 2.1 mg/dL (1.7-2.3); NT Pro B Type Natriuretic Pept 11463 pg/mL (0-125); Osmolality Calculated 312 mOsm/kg (285-295); Potassium 4.4 mmol/L (3.5-5.1); Sodium 139 mmol/L (136-145); Total Bilirubin 0.9 mg/dL (0.15-1.2)
[2024-01-29 09:51] LABS: Add Urine Culture? Yes; Add Urine Microscopic? YES; Bacteria Urine 1+ /hpf; Bilirubin Urine Neg (Negative); Blood Urine 2+ (Negative); Fine Granular Casts Urine 0-4 /lpf; Glucose Urine UA Norm (Normal); Hyaline Casts Urine 0-4 /lpf; Ketones Urine Negative (Negative); Leukocyte Esterase Urine 2+ (Negative); Mucus Urine 1+ /hpf; Nitrate Urine Negative (Negative); Protein Urine Neg (Negative); RBC Urine 0-4 /hpf (0-2); Specific Gravity, Urine 1.015 (1.005-1.030); Squamous Epithelial Cell Urine 0-4 /hpf (0-5); Urine Appearance Cloudy (CLEAR); Urine Color Yellow (Yellow); Urobilinogen Urine Norm (Negative); WBC Urine 25-40 /hpf (0-5); pH Urine 5 (5-7)
--- NOTE | 2024-01-29 11:16 | CTR_ITS ---
PROCEDURE INFORMATION: Exam: CT Abdomen And Pelvis Without Contrast Exam date and time: 01/29/2024 12:15 PM Age: 58 years old Clinical indication: Abdominal pain; Generalized TECHNIQUE: Imaging protocol: Computed tomography of the abdomen and pelvis without contrast. Radiation optimization: All CT scans at this facility use at least one of these dose optimization techniques: automated exposure control; mA and/or kV adjustment per patient size (includes targeted exams where dose is matched to clinical indication); or iterative reconstruction. COMPARISON: CT kidney stone [id number] 12/09/2023 12:16 PM RADIATION DOSE METRICS: Total DLP (mGy-cm): 1375.13 FINDINGS: Limitations: Body habitus and beam hardening/streak artifact from arm down positioning limits evaluation. Pleural spaces: Small right pleural effusion. Liver: Mildly nodular hepatic contour. Gallbladder and bile ducts: No calcified stones or ductal dilation. Pancreas: No ductal dilation. Spleen: Unremarkable. Adrenal glands: Unremarkable. Kidneys and ureters: Nonobstructing left renal calculi. No hydronephrosis. Stomach and bowel: No obstruction. No mucosal thickening. Appendix: No evidence of appendicitis. Intraperitoneal space: Moderate volume ascites. Vasculature: Unremarkable. Lymph nodes: No enlarged lymph nodes. Urinary bladder: The urinary bladder is decompressed with a Burciaga catheter. Reproductive: Unremarkable as visualized. Bones/joints: Unremarkable. No acute fracture. Soft tissues: Moderate body wall edema. CT/CT abdomen pelvis wo con [id number] IMPRESSION: 1. Volume overload including body wall edema, moderate ascites, and small right pleural effusion. 2. Nodular contour of the liver may reflect cirrhosis or maybe artifactual in the setting of streak artifact.
[2024-01-29] MEDS: meropenem 1,000 MG in sodium chloride 0.9% (plus) 50 ML 100 MG IV (12:54)
--- NOTE | 2024-01-29 13:41 | PC.NURSE ---
Patient arrived to ICU from ER at 1330. On bipap at 28% FIO2
--- NOTE | 2024-01-29 15:47 | PM.HP ---
Providers/Chief Complaint Admitting Physician: Edwige Haley MD Primary Care Provider: Karla Ryan MD Chief Complaint: low kidney function History of Present Illness Param Tejada is a 58 year old male with history of chronic kidney disease, CHF, recently got treated for staph hemolyticus bacteremia with 6 weeks of IV antibiotic presenting today with worsening of creatinine and congestive heart failure features. Patient is stating that he is compliant with medication, he has been noticing adequate urine output but despite that he is gaining weight, getting more fluid overloaded and creatinine is worsening. At the time of evaluation he is on BiPAP able to answer my questions , Patient is able to [facility] he is full code, Patient became hypotensive with diuresis last time that is why he will be monitored in the ICU Will call nephro as well Patient is agreeable for dialysis if that is needed for worsening of creatinine Mild hypercapnic respiratory failure currently on BiPAP Review of records: Patient was treated medically for his non-STEMI on last admission Review of Systems Const: Denies: fever(s) Eyes: Denies: change in vision ENMT: Denies: throat pain Card: Denies: chest pain Resp: Reports: dyspnea GI: Denies: abdominal pain Medications/Allergies Home Medications Medication Instructions Recorded Confirmed Last Taken Type aspirin 81 mg tablet,delayed 81 mg PO QAM 11/29/20 01/29/24 12/09/23 History release blood-glucose meter,continuous #1 ea 08/23/22 01/29/24 Unknown Rx (Dexcom G6 Laboratory Operations Coordinator) blood-glucose transmitter (Dexcom #3 ea 08/23/22 01/29/24 Unknown Rx G6 Transmitter device) blood-glucose sensor (Dexcom G6 #9 ea 04/19/23 01/29/24 Unknown Rx Sensor device) acetaminophen 325 mg tablet 650 mg PO Q6H PRN Pain 12/09/23 01/29/24 12/04/23 History albuterol sulfate 2.5 mg/3 mL 2.5 mg inhalation BID 12/09/23 01/29/24 12/09/23 History (0.083 %) solution for nebulization albuterol sulfate 2.5 mg/3 mL 2.5 mg inhalation Q6H PRN 12/09/23 01/29/24 12/07/23 History (0.083 %) solution for nebulization Shortness Of Breath Or Wheezing bisacodyl 10 mg rectal suppository 10 mg AL DAILY PRN Constipation 12/09/23 01/29/24 Unknown History (Dulcolax (bisacodyl)) cetirizine 10 mg tablet 10 mg PO DAILY 12/09/23 01/29/24 12/09/23 History cholecalciferol (vitamin D3) 1,250 1,250 mcg PO Q7D 12/09/23 01/29/24 12/03/23 History mcg (50,000 unit) capsule insulin lispro 100 unit/mL 10 unit SUBCUT TID 12/09/23 01/29/24 12/09/23 History subcutaneous pen magnesium hydroxide 400 mg/5 mL 30 ml PO DAILY PRN Constipation 12/09/23 01/29/24 Unknown History oral suspension (Milk of Magnesia) midodrine 10 mg tablet 10 mg PO TID 12/09/23 01/29/24 12/09/23 History polyethylene glycol 3350 17 17 g PO DAILY 12/09/23 01/29/24 12/09/23 History gram/dose oral powder (Miralax) ramelteon 8 mg tablet 8 mg PO BEDTIME INSOMNIA 12/09/23 01/29/24 12/08/23 History sodium phosphates 19 gram-7 118 ml AL DAILY PRN Constipation 12/09/23 01/29/24 Unknown History gram/118 mL enema (Fleet Enema) gabapentin 300 mg capsule 300 mg PO TID Pain #30 caps 12/17/23 01/29/24 12/09/23 Rx metoprolol succinate 25 mg capsule 25 mg PO DAILY #30 ea 12/17/23 01/29/24 Unknown Rx sprinkle, ext. release 24 hr Lactobacillus acidophilus 10 10,000 mmu cells PO DAILY PRN WHEN 01/23/24 01/29/24 Unknown History billion cell capsule (Probiotic) ON ANTIBIOTICS bumetanide 2 mg tablet 2 mg PO BID 01/23/24 01/29/24 Unknown History insulin glargine 100 unit/mL 35 unit SUBCUT BEDTIME 01/23/24 01/29/24 Unknown History subcutaneous solution (Lantus U-100 Insulin) levothyroxine 125 mcg capsule 125 mcg PO DAILY #30 caps 01/23/24 01/29/24 Unknown Rx metolazone 5 mg tablet 5 mg PO DAILY 01/23/24 01/29/24 Unknown History potassium chloride 20 mEq 40 meq PO .@NOON 01/23/24 01/29/24 Unknown History tablet,extended release semaglutide 0.25 mg or 0.5 mg (2 0.25 mg SUBCUT Q7D 01/23/24 01/29/24 Unknown History mg/3 mL) subcutaneous pen injector (Ozempic) sertraline 25 mg tablet (Zoloft) 25 mg PO DAILY #30 tabs 01/23/24 01/29/24 Unknown Rx spironolactone 25 mg tablet 25 mg PO DAILY 01/23/24 01/29/24 Unknown History ondansetron HCl 4 mg tablet 4 mg PO Q4H PRN Nausea 01/29/24 01/29/24 Unknown History Allergies Allergy/AdvReac Type Severity Reaction Status Date / Time Sulfa (Sulfonamide Allergy Severe ALGY-Anaphy Verified 12/30/23 13:51 Antibiotics) laxis PFSH Acute PFSH: Medical History History of transesophageal echocardiography (NANCY) August 2023 Multiorgan failure 07/2023 - 08/2023 when admitted with COVID 19, intubated, temporary dialysis with CRRT for CAPRI/ARF and fluid overload, transient afib, encephalopathy, shock liver, septic shock, required TPN and transfer to LTAC facility History of renal dialysis temporary dialysis in August 2023 Chronic hypercapnic respiratory failure Hypothyroidism Chronic kidney disease Sustained ventricular tachycardia 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 Pneumonia due to COVID-19 virus August 2023, severe treated with dexamethasone and remdesivir Staphylococcus aureus pneumonia August 2023 when had covid, also had staph lundgensis and staph epidermidis in cultures > received prolonged course of antibiotics with cefazolin via PICC per ID recommendations which completed in Sep 2023 Renal calculus history of left renal calculi and at least 2 spontaneous passage Personal history of nicotine dependence CHF (congestive heart failure) systolic and diastolic dysfunction CAD (coronary artery disease) 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 2 diabetes mellitus Insulin dependent diabetes mellitus ICD (implantable cardioverter-defibrillator) in place single chamber medtronic ICD programmed with a lower rate at 40 bpm per report 08/20/2023 Morbid obesity Obstructive sleep apnea Intolerant of home bipap COPD (chronic obstructive pulmonary disease) Ischemic cardiomyopathy Technically limited echo in 08/2023 with diffuse hypokinesis and EF 36% Hyperlipidemia Hypertension ST elevation myocardial infarction (STEMI) of inferior wall Surgical History History of cardiac catheterization ~06/2023 with no intervention performed per cardiology consult notes in 08/2023 History of appendectomy History of hernia surgery S/P knee replacement History of left knee replacement History of cardiac defibrillator placement History of coronary artery stent placement 2015 hx of CAD with inferior wall [place] s/p RCA stent, LAD stent Family History Father No problems noted. Mother No problems noted. Denies family history of CAD (coronary artery disease) Social History Smoking and tobacco/nicotine status: former use of tobacco/nicotine Alcohol intake: never Substance/Drug Use: never Marital status: Single Current occupational status: disabled Do you think of yourself as: Straight/Heterosexual Vitals/I&O/Wt Last Vital Signs Temp 98.3 F 01/29/24 13:32 Pulse 95 01/29/24 15:00 Resp 18 01/29/24 13:32 BP 118/78 01/29/24 13:32 Pulse Ox 95 01/29/24 15:00 O2 Del Method Room Air 01/29/24 13:31 FiO2 28 01/29/24 15:00 01/29/24 01/29/24 01/29/24 06:59 14:59 22:59 Intake Total 50 / 50 Balance 50 / 50 Weight last 48 hrs Weight 134.263 kg Weight 117.934 kg Physical Exam Narrative: Morbidly obese Anasarca Catheter in place Currently on BiPAP Nonfocal neuroexam Saturating well on BiPAP with FiO2 28 percent Significant edema Anasarca Venous stasis dermatitis Data 01/29/24 08:25 01/29/24 08:25 A&P Assessment and plan (1) Hypertension: Qualifiers: Hypertension type: essential hypertension Qualified Code(s): I10 - Essential (primary) hypertension (2) CHF (congestive heart failure): Qualifiers: Heart failure type: combined systolic and diastolic Heart failure chronicity: chronic Qualified Code(s): I50.42 - Chronic combined systolic (congestive) and diastolic (congestive) heart failure (3) Ischemic cardiomyopathy: (4) ICD (implantable cardioverter-defibrillator) in place: (5) Hypothyroidism: (6) Ataxia: (7) COPD (chronic obstructive pulmonary disease): (8) Obstructive sleep apnea: (9) Personal history of nicotine dependence: (10) Acute and chronic respiratory failure with hypercapnia: (11) Acute kidney injury superimposed on chronic kidney disease: Plan Acute systolic CHF exacerbation Reduced EF Status post AICD Anasarca Creatinine worsening Continue IV diuresis Adequate urine output during my evaluation Burciaga catheter in place Acute on chronic kidney disease Multifactorial Currently patient is being diuresed He is on multiple nephrotoxic agents with I would hold for now Type II diabetic with hyperglycemia the past Reduce dose of insulin secondary to worsening creatinine Venous stasis dermatitis: No active sign of cellulitis Patient is full code Cardiac/renal nondialysis diet Acute on chronic hypercapnic respite failure currently on BiPAP Patient stating that he uses a walker for ambulation [facility] High anion gap metabolic acidosis related to uremia, In case of further worsening of kidney function will call nephro And agreeable for dialysis that is indicated at some point Attestations Medical Necessity Statement*: Anticipating more than 2 midnights Diagnoses Essential hypertension I10 Hypertension type: essential hypertension Chronic combined systolic and diastolic congestive heart failure I50.42 Heart failure type: combined systolic and diastolic Heart failure chronicity: chronic Ischemic cardiomyopathy I25.5 ICD (implantable cardioverter-defibrillator) in place Z95.810 Hypothyroidism E03.9 Ataxia R27.0 COPD (chronic obstructive pulmonary disease) J44.9 Obstructive sleep apnea G47.33 Personal history of nicotine dependence Z87.891 Acute and chronic respiratory failure with hypercapnia J96.22 Acute kidney injury superimposed on chronic kidney disease N17.9; N18.9
[2024-01-29] MEDS: FUROsemide 10 mg/mL SDV 10mL 60 MG IVP (16:01)
[2024-01-29] MEDS: heparin 5,000 unit/mL INJ 1 mL 5000 UNIT SUBCUT (16:02)
[2024-01-29 17:10] LABS: Glucose Point of Care 176 mg/dL (70-110)
[2024-01-29] MEDS: insulin lispro 100 unit/1 mL SUBCUT (17:19)
[2024-01-29] MEDS: ipratropium-albuterol 3 mL Neb INHALATION (19:37)
[2024-01-29] MEDS: insulin glargine 100 units/1 mL 25 UNIT SUBCUT (21:08)
[2024-01-30] VITALS (19 sets, daily range): BP systolic 98–186; BP diastolic 60–146; PULSE 95–122; RESP 15–37; TEMP 36.2–37; O2SAT 90–100
[2024-01-30] MEDS: heparin 5,000 unit/mL INJ 1 mL 5000 UNIT SUBCUT ×2 (03:38→16:18)
[2024-01-30] MEDS: FUROsemide 10 mg/mL SDV 10mL 60 MG IVP ×2 (03:38→16:18)
[2024-01-30 04:27] LABS: ABG PCO2 50.7 mmHg (35-45); ABG PH Result 7.43 (7.35-7.45); Arterial Blood Gas Hematocrit 39.1 % (42-52); Base Excess ABG 7.7 mmol/L (-2.0-2.0); Blood Gas Operator Identificat JB; Blood Gas Sample Site Brachial, left; Blood Gas Sample Type Arterial; HCO3 ABG 33.5 mmol/L (22-26); Oxygen Device BIPAP; PO2 ABG 68.6 mmHg (80.0-100.0); PO2 FiO2 Ratio Arterial Blood 0
[2024-01-30] MEDS: aspirin 81 mg EC Tablet PO (05:00)
[2024-01-30 07:28] LABS: Glucose Point of Care 197 mg/dL (70-110)
[2024-01-30] MEDS: insulin lispro 100 unit/1 mL SUBCUT ×3 (08:33→17:29)
--- NOTE | 2024-01-30 08:46 | P.CONIM_ITS ---
Providers/Reason For Consult 2 Consulting Physician/Specialty*: [facility]a/Nephrology Reason for Consult*: Acute on CKD Attending Physician: Edwige Haley MD Primary Care Provider: Karla Ryan MD History of Present Illness History of Present Illness Param Tejada is a 58 year old male Patient is a 58-year-old male with past medical history of chronic kidney disease stage IV, CHF presented to the emergency department due to shortness of breath worsening edema. In the ED patient was noted to be having pulmonary edema and lab data significant for worsened renal function, with a creatinine of 3.7. Baseline creatinine was in the mid 1 range. Also has elevated BNP. Patient was recently treated for staph hemolyticus bacteremia with 6 weeks of IV antibiotics. Patient currently denies any complaints. On IV Lasix 60 mg twice daily and had adequate diuresis. 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) blood-glucose transmitter (Dexcom #3 ea 08/23/22 01/29/24 Unknown Rx G6 Transmitter device) blood-glucose sensor (Dexcom G6 #9 ea 04/19/23 01/29/24 Unknown Rx Sensor device) acetaminophen 325 mg tablet 650 mg PO Q6H PRN Pain 12/09/23 01/29/24 12/04/23 History albuterol sulfate 2.5 mg/3 mL 2.5 mg inhalation BID 12/09/23 01/29/24 12/09/23 History (0.083 %) solution for nebulization albuterol sulfate 2.5 mg/3 mL 2.5 mg inhalation Q6H PRN 12/09/23 01/29/24 12/07/23 History (0.083 %) solution for nebulization Shortness Of Breath Or Wheezing bisacodyl 10 mg rectal suppository 10 mg GA DAILY PRN Constipation 12/09/23 01/29/24 Unknown History (Dulcolax (bisacodyl)) cetirizine 10 mg tablet 10 mg PO DAILY 12/09/23 01/29/24 12/09/23 History cholecalciferol (vitamin D3) 1,250 1,250 mcg PO Q7D 12/09/23 01/29/24 12/03/23 History mcg (50,000 unit) capsule insulin lispro 100 unit/mL 10 unit SUBCUT TID 12/09/23 01/29/24 12/09/23 History subcutaneous pen magnesium hydroxide 400 mg/5 mL 30 ml PO DAILY PRN Constipation 12/09/23 01/29/24 Unknown History oral suspension (Milk of Magnesia) midodrine 10 mg tablet 10 mg PO TID 12/09/23 01/29/24 12/09/23 History polyethylene glycol 3350 17 17 g PO DAILY 12/09/23 01/29/24 12/09/23 History gram/dose oral powder (Miralax) ramelteon 8 mg tablet 8 mg PO BEDTIME INSOMNIA 12/09/23 01/29/24 12/08/23 History sodium phosphates 19 gram-7 118 ml GA DAILY PRN Constipation 12/09/23 01/29/24 Unknown History gram/118 mL enema (Fleet Enema) gabapentin 300 mg capsule 300 mg PO TID Pain #30 caps 12/17/23 01/29/24 12/09/23 Rx metoprolol succinate 25 mg capsule 25 mg PO DAILY #30 ea 12/17/23 01/29/24 Unknown Rx sprinkle, ext. release 24 hr Lactobacillus acidophilus 10 10,000 mmu cells PO DAILY PRN WHEN 01/23/24 01/29/24 Unknown History billion cell capsule (Probiotic) ON ANTIBIOTICS bumetanide 2 mg tablet 2 mg PO BID 01/23/24 01/29/24 Unknown History insulin glargine 100 unit/mL 35 unit SUBCUT BEDTIME 01/23/24 01/29/24 Unknown History subcutaneous solution (Lantus U-100 Insulin) levothyroxine 125 mcg capsule 125 mcg PO DAILY #30 caps 01/23/24 01/29/24 Unknown Rx metolazone 5 mg tablet 5 mg PO DAILY 01/23/24 01/29/24 Unknown History potassium chloride 20 mEq 40 meq PO .@NOON 01/23/24 01/29/24 Unknown History tablet,extended release semaglutide 0.25 mg or 0.5 mg (2 0.25 mg SUBCUT Q7D 01/23/24 01/29/24 Unknown History mg/3 mL) subcutaneous pen injector (Ozempic) sertraline 25 mg tablet (Zoloft) 25 mg PO DAILY #30 tabs 01/23/24 01/29/24 Unknown Rx spironolactone 25 mg tablet 25 mg PO DAILY 01/23/24 01/29/24 Unknown History ondansetron HCl 4 mg tablet 4 mg PO Q4H PRN Nausea 01/29/24 01/29/24 Unknown History Allergies Allergy/AdvReac Type Severity Reaction Status Date / Time Sulfa (Sulfonamide Allergy Severe ALGY-Anaphy Verified 12/30/23 13:51 Antibiotics) laxis Current Medications Generic Name Dose Route Start Last Admin Trade Name Freq PRN Reason Stop Dose Admin Albuterol/Ipratropium 3 ml 01/29/24 15:48 01/29/24 19:37 Ipratropium-Albuterol 3 Ml Neb INHALATION 3 ml Q6H PRN Administration SHORTNESS OF BREATH Aspirin 81 mg 01/30/24 06:00 01/30/24 05:00 Aspirin 81 Mg Ec Tablet PO 81 mg QAM VIRA Administration Furosemide 60 mg 01/29/24 16:00 01/30/24 03:38 Furosemide 10 Mg/Ml Sdv 10ml IVP 60 mg Q12H VIRA Administration Heparin Sodium (Porcine) 5,000 unit 01/29/24 16:00 01/30/24 03:38 Heparin 5,000 Unit/Ml Inj 1 Ml SUBCUT 5,000 unit Q12H VIRA Administration Insulin Glargine 25 unit 01/29/24 21:00 01/29/24 21:08 Insulin Glargine 100 Units/1 Ml SUBCUT 25 unit BEDTIME IVRA Administration Insulin Human Lispro 0 unit 01/29/24 18:00 01/30/24 08:33 Insulin Lispro 100 Unit/1 Ml SUBCUT 6 unit TIDWM VIRA Administration Protocol PFSH Acute 2 PFSH: Medical History History of transesophageal echocardiography (NANCY) August 2023 Multiorgan failure 07/2023 - 08/2023 when admitted with COVID 19, intubated, temporary dialysis with CRRT for CAPRI/ARF and fluid overload, transient afib, encephalopathy, shock liver, septic shock, required TPN and transfer to LTAC facility History of renal dialysis temporary dialysis in August 2023 Chronic hypercapnic respiratory failure Hypothyroidism Chronic kidney disease Sustained ventricular tachycardia 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 Pneumonia due to COVID-19 virus August 2023, severe treated with dexamethasone and remdesivir Staphylococcus aureus pneumonia August 2023 when had covid, also had staph lundgensis and staph epidermidis in cultures > received prolonged course of antibiotics with cefazolin via PICC per ID recommendations which completed in Sep 2023 Renal calculus history of left renal calculi and at least 2 spontaneous passage Personal history of nicotine dependence CHF (congestive heart failure) systolic and diastolic dysfunction CAD (coronary artery disease) 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 2 diabetes mellitus Insulin dependent diabetes mellitus ICD (implantable cardioverter-defibrillator) in place single chamber medtronic ICD programmed with a lower rate at 40 bpm per report 08/20/2023 Morbid obesity Obstructive sleep apnea Intolerant of home bipap COPD (chronic obstructive pulmonary disease) Ischemic cardiomyopathy Technically limited echo in 08/2023 with diffuse hypokinesis and EF 36% Hyperlipidemia Hypertension ST elevation myocardial infarction (STEMI) of inferior wall Surgical History History of cardiac catheterization ~06/2023 with no intervention performed per cardiology consult notes in 08/2023 History of appendectomy History of hernia surgery S/P knee replacement History of left knee replacement History of cardiac defibrillator placement History of coronary artery stent placement 2015 hx of CAD with inferior wall [place] s/p RCA stent, LAD stent Family History Father No problems noted. Mother No problems noted. Denies family history of CAD (coronary artery disease) Social History Smoking and tobacco/nicotine status: former use of tobacco/nicotine Alcohol intake: never Substance/Drug Use: never Marital status: Single Current occupational status: disabled Do you think of yourself as: Straight/Heterosexual Vitals/I&O/Wt Last Vital Signs Temp 97.8 F 01/30/24 04:00 Pulse 100 01/30/24 06:00 Resp 19 H 01/30/24 06:00 BP 105/77 06/20/24 06:00 Pulse Ox 96 01/30/24 06:00 O2 Del Method BiPAP 01/30/24 06:00 FiO2 28 01/30/24 06:00 01/29/24 01/30/24 01/30/24 22:59 06:59 14:59 Intake Total 240 / 290 Output Total 1825 / 1825 650 / 2475 Balance -1585 / -1535 -650 / -2185 Weight last 48 hrs Weight 132.086 kg Weight 134.263 kg Weight 117.934 kg Physical Exam 2 Narrative: awake , alert no distress crackles beatrice per report + LE edema Data 01/29/24 08:25 01/29/24 08:25 A&P Assessment and plan (1) Chronic kidney disease: (2) Acute kidney injury superimposed on chronic kidney disease: 1. Acute on chronic kidney disease stage III: Baseline creatinine in the mid 1 range now has CAPRI with a creatinine of 3.7 in the setting of acute CHF exacerbation/volume overload. Possibly cardiorenal etiology. -Agree with IV Lasix, strict intake and output -2 g sodium restriction of 1500 mL fluid restriction. 2. CHF exacerbation: Diuresis as above 3. Recent staph bacteremia and status post IV antibiotics 5. Liver cirrhosis Patient evaluated using audiovisual cart. Time spent 40 minutes. Consult Attestations 2 Medical Necessity Statement: per mediicne team Coding Level of Care Code Acute Code for Chg Fwd Diagnoses Chronic kidney disease N18.9 Acute kidney injury superimposed on chronic kidney disease N17.9; N18.9
[2024-01-30] MEDS: ipratropium-albuterol 3 mL Neb INHALATION ×3 (09:20→20:29)
--- NOTE | 2024-01-30 10:32 | PC.CHAP ---
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 supervisor visit [] Patient/Family/Request visit [] Outpatient visit [] Follow-up visit [] Physician referral [] Code/Alert [x] Routine visit [] Staff referral [] Actively dying [] Patient sleeping [] Family support [] [] Out of room [] Palliative care [] [] Receiving care in room [] Pre-surgical visit [] Trauma [] Long length of stay [x] ICU visit [] Other: Relational/Emotional Strength [] Patient feels connected with others/family/visitors/staff [] Distress [] Loneliness/isolation [] Abandonment Spirituality of Patient [] Person of Lo [] Attends Yazidi of their Lo [] Believes in Prayer [] Reads Bible or Temple materials [] There are Spiritual issues to be addressed Animal Services Officer Interventions [x] Prayer [] Active listening [] Non-anxious presence [] Spiritual/emotional support [] Crisis/trauma care [] Spiritual counseling [] Bereavement support [] Provided bereavement packet [] Provided Bible/devotional materials [] Provided toy/stuffed animal, coloring book to patient or family member [] Provided Communion [] Anointing/[place] [] Salvation [] Completed spiritual assessment [] Other: Impact on Illness or Injury [] Angry [] Fearful [] Anxious [] Often cries [] Exhaustion [] Unable to work [] Unable to attend mu-ism [] Unable to walk/stand [] Unable to read [] Unable to drive [] Unable to eat/drink [] Unable to sleep [] Unable to be with family [] Patient intubated [] Other: Summary wanting breathing treatment... advised staff of request Time spent with patient
[2024-01-30 10:44] LABS: Basophils # 0.2 10^3/uL (0.0-0.1); Basophils % 2.2 %; Eosinophils % 17.8 %; Hematocrit 41.9 % (37-53); Lymphocytes # 0.7 10^3/uL (0.8-4.8); Lymphocytes % 6.1 %; Mean Corpuscular HGB Conc 29.6 g/dL (30-55); Mean Corpuscular Hemoglobin 22.7 pg (27-33); Mean Corpuscular Volume 76.7 fl (82-101); Mean Platelet Volume 9.7 fL (7.4-10.4); Monocytes # 1.3 10^3/uL (0.2-0.9); Monocytes % 11.3 %; Neutrophils # 6.94 10^3/uL (1.8-7.7); Neutrophils % 62.2 %; Nucleated Red Blood Cells % 0 %; Platelet Count 347 10^3/cmm (157-399); Red Blood Count 5.46 10^6/uL (3.85-5.65); Red Cell Distribution Width 20.8 % (12.1-15.1); White Blood Count 11.16 10^3/uL (3.29-11.43)
[2024-01-30] MEDS: levothyroxine 125 mcg Tablet PO (10:51)
[2024-01-30] MEDS: sennosides-docusate Tablet 1 TAB PO (10:51)
[2024-01-30 11:02] LABS: Blood Urea Nitrogen 68 mg/dL (6-20); Calcium 10.5 mg/dL (8.5-10.5); Carbon Dioxide 30 mmol/L (22-29); Chloride 95 mmol/L (98-107); Creatinine Clr Calc Pharmacy 30.5913; Glomerular Filtration Rate 19.3 mL/min (90-130); Glucose 189 mg/dL (65-115); Magnesium 1.9 mg/dL (1.7-2.3); Osmolality Calculated 311 mOsm/kg (285-295); Sodium 138 mmol/L (136-145)
[2024-01-30 11:11] LABS: Anion Gap 17.1 (5-19); Potassium 4.1 mmol/L (3.5-5.1)
--- NOTE | 2024-01-30 12:02 | P.PN_ITS ---
Subjective 2 Subjective: Patient is hemodynamically stable Currently on 3 L Complaining of back pain Urgent to get out of bed sitting at appointment He was asking for bedpan for a BM today Appreciate nephro recommendations Creatinine 3.3 improved from 3.7 Vitals/I&O/Wt Last Vital Signs Temp 97.1 F L 01/30/24 08:00 Pulse 115 H 01/30/24 10:00 Resp 37 H 01/30/24 10:00 BP 107/79 01/30/24 10:00 Pulse Ox 95 01/30/24 10:00 O2 Del Method Nasal Cannula 01/30/24 10:00 O2 Flow Rate 3 01/30/24 10:00 FiO2 28 01/30/24 09:56 01/29/24 01/30/24 01/30/24 22:59 06:59 14:59 Intake Total 240 / 290 500 / 500 Output Total 1825 / 1825 650 / 2475 Balance -1585 / -1535 -650 / -2185 500 / 500 Weight last 48 hrs Weight 132.086 kg Weight 134.263 kg Weight 117.934 kg Physical Exam 2 Narrative: Morbid obese CH exacerbation Volume overloaded Currently on 2 L Awake and alert Nonfocal neuroexam Venous stasis dermatitis Nonpurulent cellulitis Data 01/30/24 10:25 01/30/24 10:25 Micro: Microbiology 01/29/24 08:29 Urine Culture - Preliminary Urine,Clean Catch Gram Negative Rods A&P Assessment and plan (1) Depression: Qualifiers: Depression Type: unspecified Qualified Code(s): F32.A - Depression, unspecified (2) Hypertension: Qualifiers: Hypertension type: essential hypertension Qualified Code(s): I10 - Essential (primary) hypertension (3) CHF (congestive heart failure): Qualifiers: Heart failure type: combined systolic and diastolic Heart failure chronicity: chronic Qualified Code(s): I50.42 - Chronic combined systolic (congestive) and diastolic (congestive) heart failure (4) Ischemic cardiomyopathy: (5) ICD (implantable cardioverter-defibrillator) in place: (6) Diabetes mellitus, type II, insulin dependent: (7) Chronic kidney disease: (8) Acute kidney injury superimposed on chronic kidney disease: (9) Ataxia: (10) COPD (chronic obstructive pulmonary disease): (11) Obstructive sleep apnea: Plan Acute systolic CHF exacerbation Continue with the IV diuresis Acute on chronic kidney disease Cardiorenal improving with diuresis appreciate nephro recommendations Sleep apnea, continue with BiPAP which can be used every night Constipation: Relieved had a bowel movement today Sleep apnea: Continue 3 L [id number] Patient has ataxia, uses a walker at [facility] Patient is full code Fluid restricted diet renal nondialysis Can be transferred out of ICU to [facility] Attestations 2 Medical Necessity Statement*: Continue medical management Diagnoses Depression F32.A Depression Type: unspecified Essential hypertension I10 Hypertension type: essential hypertension Chronic combined systolic and diastolic congestive heart failure I50.42 Heart failure type: combined systolic and diastolic Heart failure chronicity: chronic Ischemic cardiomyopathy I25.5 ICD (implantable cardioverter-defibrillator) in place Z95.810 Diabetes mellitus, type II, insulin dependent E11.9; Z79.4 Chronic kidney disease N18.9 Acute kidney injury superimposed on chronic kidney disease N17.9; N18.9 Ataxia R27.0 COPD (chronic obstructive pulmonary disease) J44.9 Obstructive sleep apnea G47.33
[2024-01-30 12:20] LABS: Glucose Point of Care 413 mg/dL (70-110)
[2024-01-30 12:21] LABS: Glucose Point of Care 161 mg/dL (70-110)
[2024-01-30] MEDS: potassium chloride ER 20 mEq Tablet 40 MEQ PO (12:29)
--- NOTE | 2024-01-30 14:15 | PC.NURSE ---
Report called to Kim [facility]. Will transfer pt via bed.
[2024-01-30 17:22] LABS: Glucose Point of Care 243 mg/dL (70-110)
[2024-01-30 21:12] LABS: Glucose Point of Care 144 mg/dL (70-110)
[2024-01-30] MEDS: insulin glargine 100 units/1 mL 25 UNIT SUBCUT (23:55)
[2024-01-31] VITALS (11 sets, daily range): BP systolic 99–127; BP diastolic 56–73; PULSE 80–122; RESP 16–21; TEMP 36.4–37; O2SAT 94–98
[2024-01-31] MEDS: FUROsemide 10 mg/mL SDV 10mL 60 MG IVP (03:34)
[2024-01-31] MEDS: heparin 5,000 unit/mL INJ 1 mL 5000 UNIT SUBCUT ×2 (03:35→16:38)
[2024-01-31 05:21] LABS: Basophils # 0.2 10^3/uL (0.0-0.1); Basophils % 2.1 %; Eosinophils # 1.8 10^3/uL (0.0-0.8); Eosinophils % 19.1 %; Hematocrit 39.5 % (37-53); Lymphocytes # 0.7 10^3/uL (0.8-4.8); Lymphocytes % 7.2 %; Mean Corpuscular HGB Conc 30.9 g/dL (30-55); Mean Corpuscular Hemoglobin 22.6 pg (27-33); Mean Corpuscular Volume 73.1 fl (82-101); Mean Platelet Volume 9.7 fL (7.4-10.4); Monocytes # 1.3 10^3/uL (0.2-0.9); Monocytes % 13.9 %; Neutrophils # 5.44 10^3/uL (1.8-7.7); Neutrophils % 57.3 %; Nucleated Red Blood Cells % 0 %; Platelet Count 366 10^3/cmm (157-399); Red Cell Distribution Width 20.5 % (12.1-15.1); White Blood Count 9.49 10^3/uL (3.29-11.43)
[2024-01-31 05:43] LABS: Anion Gap 19.3 (5-19); Blood Urea Nitrogen 67 mg/dL (6-20); Calcium 10.8 mg/dL (8.5-10.5); Carbon Dioxide 31 mmol/L (22-29); Chloride 95 mmol/L (98-107); Creatinine Clr Calc Pharmacy 31.4708; Glucose 134 mg/dL (65-115); Osmolality Calculated 313 mOsm/kg (285-295); Potassium 4.3 mmol/L (3.5-5.1); Sodium 141 mmol/L (136-145)
[2024-01-31] MEDS: aspirin 81 mg EC Tablet PO (06:19)
[2024-01-31 06:27] LABS: Glucose Point of Care 125 mg/dL (70-110)
[2024-01-31] MEDS: ondansetron 2 mg/ML SDV 2 mL 4 MG IVP ×2 (06:45→21:24)
[2024-01-31] MEDS: levothyroxine 125 mcg Tablet PO (09:02)
[2024-01-31] MEDS: sennosides-docusate Tablet 1 TAB PO (09:02)
[2024-01-31] MEDS: ipratropium-albuterol 3 mL Neb INHALATION ×2 (09:19→20:39)
--- NOTE | 2024-01-31 09:55 | P.PN_ITS ---
Subjective 2 Subjective: Patient is showing good urine output No active complaints Sitting in bed Refuses PT this morning stating that he was nauseous I encourage patient to get out of bed to chair at least Creatinine improving Patient is negative fluid balance Appreciate nephro recommendations Alkalosis noted on BMP Vitals/I&O/Wt Last Vital Signs Temp 97.6 F 01/31/24 07:53 Pulse 110 H 01/31/24 09:20 Resp 20 H 01/31/24 09:20 BP 99/56 01/31/24 07:53 Pulse Ox 95 01/31/24 09:20 O2 Del Method Nasal Cannula 01/31/24 09:20 O2 Flow Rate 4 01/31/24 09:20 FiO2 28 01/31/24 03:00 01/30/24 01/31/24 01/31/24 22:59 06:59 14:59 Intake Total 120 / 1120 1000 / 2120 Output Total 1200 / 2100 Balance 120 / 220 -200 / 20 Weight last 48 hrs Weight 131.542 kg Weight 132.086 kg Weight 134.263 kg Physical Exam 2 Narrative: Anasarca No significant improvement Pleasant cooperative Nonfocal neuroexam Currently on 3 L Pleasant and cooperative Nonfocal neuroexam abdomen soft Scrotal edema present Data 01/31/24 05:00 01/31/24 05:00 Micro: Microbiology 01/29/24 08:29 Urine Culture - Preliminary Urine,Clean Catch Gram Negative Rods A&P Assessment and plan (1) ICD (implantable cardioverter-defibrillator) in place: (2) Chronic congestive heart failure: Qualifiers: Heart failure type: unspecified Qualified Code(s): I50.9 - Heart failure, unspecified (3) Diabetes mellitus, type II, insulin dependent: (4) Acute kidney injury superimposed on chronic kidney disease: (5) Ataxia: (6) COPD (chronic obstructive pulmonary disease): (7) Obstructive sleep apnea: (8) Personal history of nicotine dependence: Plan Acute systolic CHF exacerbation Monitor urine output correlate with creatinine Improvement of urine output and creatinine noted Monitor blood pressure I will change diuretic dose to once daily secondary to alkalosis Acute on chronic kidney disease Cardiorenal: Improving with diuresis No plan for dialysis as of yet Alkalosis noted Sleep apnea requires BiPAP overnight Currently on 3 L during the day Constipation: Improved Patient has ataxia, uses a walker at skilled nursing, has refused PT today Full code Fluid restricted renal nondialysis diet Plan to discharge once creatinine is around baseline Attestations 2 Medical Necessity Statement*: Continue medical management Diagnoses ICD (implantable cardioverter-defibrillator) in place Z95.810 Chronic congestive heart failure I50.9 Heart failure type: unspecified Diabetes mellitus, type II, insulin dependent E11.9; Z79.4 Acute kidney injury superimposed on chronic kidney disease N17.9; N18.9 Ataxia R27.0 COPD (chronic obstructive pulmonary disease) J44.9 Obstructive sleep apnea G47.33 Personal history of nicotine dependence Z87.891
--- NOTE | 2024-01-31 09:57 | PM.PN ---
Subjective Subjective: no new compliants Medications: Reviewed: Yes Vitals/I&O/Wt Last Vital Signs Temp 97.6 F 01/31/24 07:53 Pulse 110 H 01/31/24 09:20 Resp 20 H 01/31/24 09:20 BP 99/56 01/31/24 07:53 Pulse Ox 95 01/31/24 09:20 O2 Del Method Nasal Cannula 01/31/24 09:20 O2 Flow Rate 4 01/31/24 09:20 FiO2 28 01/31/24 03:00 01/30/24 01/31/24 01/31/24 22:59 06:59 14:59 Intake Total 120 / 1120 1000 / 2120 Output Total 1200 / 2100 Balance 120 / 220 -200 / 20 Weight last 48 hrs Weight 131.542 kg Weight 132.086 kg Weight 134.263 kg Physical Exam Narrative: awake , alert no distress crackles beatrice per report + LE edema Data 01/31/24 05:00 01/31/24 05:00 Micro: Microbiology 01/29/24 08:29 Urine Culture - Preliminary Urine,Clean Catch Gram Negative Rods A&P Assessment and plan (1) Chronic kidney disease: (2) Acute kidney injury superimposed on chronic kidney disease: 1. Acute on chronic kidney disease stage III: Baseline creatinine in the mid 1 range now has CAPRI with a creatinine of 3.7 in the setting of acute CHF exacerbation/volume overload. Possibly cardiorenal etiology. -Agree with IV Lasix, strict intake and output- will switch to po lasix in Am -2 g sodium restriction of 1500 mL fluid restriction. 2. CHF exacerbation: Diuresis as above 3. Recent staph bacteremia and status post IV antibiotics 5. Liver cirrhosis Patient evaluated using audiovisual cart. Time spent 40 minutes. Attestations Medical Necessity Statement*: per medicine Coding Level of Care Code Acute Code for [facility] Fwd Diagnoses Chronic kidney disease N18.9 Acute kidney injury superimposed on chronic kidney disease N17.9; N18.9
[2024-01-31 11:46] LABS: Glucose Point of Care 139 mg/dL (70-110)
[2024-01-31] MEDS: potassium chloride ER 20 mEq Tablet 40 MEQ PO (12:34)
--- NOTE | 2024-01-31 15:03 | CTR_ITS ---
PROCEDURE INFORMATION: Exam: CT Abdomen And Pelvis Without Contrast Exam date and time: 01/31/2024 5:48 PM Age: 58 years old Clinical indication: Nausea and vomiting; Prior surgery; Surgery date: 6+ months; Surgery type: Coronary stents. Pacer. Hernia repair. Appy. Patient HX: Persistent n/v. TECHNIQUE: Imaging protocol: Computed tomography of the abdomen and pelvis without contrast. Radiation optimization: All CT scans at this facility use at least one of these dose optimization techniques: automated exposure control; mA and/or kV adjustment per patient size (includes targeted exams where dose is matched to clinical indication); or iterative reconstruction. COMPARISON: CT abdomen pelvis wo con [id number] 01/29/2024 12:15 PM RADIATION DOSE METRICS: Total DLP (mGy-cm): 1845.43 FINDINGS: Tubes, catheters and devices: Pacemaker leads partially visualized. Pleural spaces: Small right pleural effusion with adjacent compressive atelectasis or pneumonia. Trace left pleural fluid with adjacent compressive atelectasis. Liver: The liver is mildly nodular in contour raising concern for cirrhosis. Gallbladder and biliary ducts: Normal. No calcified stones. No ductal dilation. Pancreas: Normal. No ductal dilation. Spleen: Normal. No splenomegaly. Adrenal glands: Normal. No mass. Kidneys and ureters: There are nonobstructing left renal calculi. No hydronephrosis or hydroureter. Stomach and bowel: Unremarkable. No obstruction. No mucosal thickening. Appendix: No evidence of appendicitis. Intraperitoneal space: There is a large amount of free intraperitoneal fluid/ascites in the abdomen/pelvis similar to the prior study. Vasculature: Multi-vessel atherosclerotic disease. Lymph nodes: Unremarkable. No enlarged lymph nodes. Urinary bladder: The bladder wall is collapsed about a Burciaga catheter. Reproductive: Unremarkable as visualized. Bones/joints: There are degenerative changes in the visualized spine. A transitional lumbosacral vertebra is present. Soft tissues: Soft tissue anasarca also seen on the prior study. CT/CT abdomen pelvis wo con [id number] IMPRESSION: 1. Small right pleural effusion with adjacent compressive atelectasis or pneumonia. Trace left pleural fluid. 2. Soft tissue anasarca. 3. There is a large amount of free intraperitoneal fluid/ascites in the abdomen/pelvis. 4. The liver is mildly nodular in contour raising concern for cirrhosis.
[2024-01-31 16:35] LABS: Glucose Point of Care 114 mg/dL (70-110)
[2024-01-31] MEDS: insulin glargine 100 units/1 mL 25 UNIT SUBCUT (20:26)
[2024-01-31 20:40] LABS: Glucose Point of Care 179 mg/dL (70-110)
[2024-02-01] VITALS (13 sets, daily range): BP systolic 106–117; BP diastolic 70–82; PULSE 101–114; RESP 14–20; TEMP -12.4–36.7; O2SAT 92–97; BMI 48.1
[2024-02-01] MEDS: heparin 5,000 unit/mL INJ 1 mL 5000 UNIT SUBCUT ×2 (04:57→17:11)
--- NOTE | 2024-02-01 05:02 | P.PN_ITS ---
Subjective 2 Subjective: Plan to switch IV Lasix to p.o. regimen Improving creatinine Adequate urine output Patient was experiencing nausea and vomiting requested CT abdomen pelvis which showed Large volume ascites, will request paracentesis on Saturday Vitals/I&O/Wt Last Vital Signs Temp 98.2 F 01/31/24 16:35 Pulse 112 H 01/31/24 16:35 Resp 19 H 01/31/24 16:35 BP 106/73 01/31/24 16:35 Pulse Ox 94 01/31/24 16:35 O2 Del Method Nasal Cannula 01/31/24 16:35 O2 Flow Rate 4 01/31/24 09:20 FiO2 28 01/31/24 03:00 01/31/24 01/31/24 01/31/24 06:59 14:59 22:59 Intake Total 1000 / 2120 360 / 360 Output Total 1200 / 2100 Balance -200 / 20 360 / 360 Weight last 48 hrs Weight 131.542 kg Weight 132.086 kg Physical Exam 2 Narrative: Morbidly obese male Tachycardia noted Afebrile S1, S2 Nontender abdomen Venous's dermatitis On 2 L nasal cannula Data 01/31/24 05:00 01/31/24 05:00 Micro: Microbiology 01/29/24 08:29 Urine Culture - Final Urine,Clean Catch Serratia marcescens A&P Assessment and plan (1) ICD (implantable cardioverter-defibrillator) in place: (2) Chronic congestive heart failure: Qualifiers: Heart failure type: unspecified Qualified Code(s): I50.9 - Heart failure, unspecified (3) Diabetes mellitus, type II, insulin dependent: (4) Acute kidney injury superimposed on chronic kidney disease: (5) Ataxia: (6) COPD (chronic obstructive pulmonary disease): (7) Obstructive sleep apnea: (8) Personal history of nicotine dependence: Plan Acute systolic CHF exacerbation Plan to switch to p.o. Lasix Acute on chronic kidney disease Cardiorenal: Improving with diuresis No plan for dialysis as of yet Recurrent nausea vomiting CT abdomen pelvis consistent with liver cirrhosis Sleep apnea requires BiPAP overnight Currently on 3 L during the day Constipation: Improved Patient has ataxia, uses a walker at [facility], has refused PT today Full code Fluid restricted renal nondialysis diet Plan to discharge likely on Saturday Attestations 2 Medical Necessity Statement*: Continue medical management Diagnoses ICD (implantable cardioverter-defibrillator) in place Z95.810 Chronic congestive heart failure I50.9 Heart failure type: unspecified Diabetes mellitus, type II, insulin dependent E11.9; Z79.4 Acute kidney injury superimposed on chronic kidney disease N17.9; N18.9 Ataxia R27.0 COPD (chronic obstructive pulmonary disease) J44.9 Obstructive sleep apnea G47.33 Personal history of nicotine dependence Z87.891
--- NOTE | 2024-02-01 05:53 | CTR_ITS ---
PROCEDURE INFORMATION: Exam: CT Head Without Contrast Exam date and time: 02/01/2024 6:49 AM Age: 58 years old Clinical indication: Patient HX: Persistent n/v TECHNIQUE: Imaging protocol: Computed tomography of the head without contrast. Radiation optimization: All CT scans at this facility use at least one of these dose optimization techniques: automated exposure control; mA and/or kV adjustment per patient size (includes targeted exams where dose is matched to clinical indication); or iterative reconstruction. COMPARISON: CT head wo con* [id number] 12/09/2023 11:01 AM RADIATION DOSE METRICS: Total DLP (mGy-cm): 1061.24 FINDINGS: Brain: No acute intracranial hemorrhage or mass effect. There is decreased attenuation in the periventricular white matter, likely from microvascular disease. No definite acute infarct by CT. MRI would be more sensitive/specific for detection, as clinically directed. Cerebral ventricles: Ventricle size is normal for age. Paranasal sinuses: Included paranasal sinuses are essentially clear. Mastoid air cells: No significant acute finding. Bones: No definite acute skull fracture. Soft tissues: No significant acute finding. Vasculature: Vascular calcifications in the internal carotid arteries. CT/CT head wo con* [id number] IMPRESSION: 1. No acute intracranial hemorrhage or mass effect. 2. Changes of microvascular disease. 3. No definite acute infarct by CT, see above. 4. Other findings discussed above.
[2024-02-01] MEDS: ipratropium-albuterol 3 mL Neb INHALATION ×3 (05:58→19:20)
[2024-02-01 06:13] LABS: Glucose Point of Care 115 mg/dL (70-110)
[2024-02-01 06:24] LABS: ABG PH Result 7.38 (7.35-7.45); Arterial Blood Gas Hematocrit 39.6 % (42-52); Base Excess ABG 9.1 mmol/L (-2.0-2.0); Blood Gas Allen Test Pos; Blood Gas Sample Site Radial, left; Blood Gas Sample Type Arterial; HCO3 ABG 36.4 mmol/L (22-26); Oxygen Device NC; PO2 ABG 72.6 mmHg (80.0-100.0)
[2024-02-01 06:25] LABS: ABG PCO2 61.2 mmHg (35-45)
[2024-02-01 06:39] LABS: Basophils # 0.2 10^3/uL (0.0-0.1); Basophils % 1.7 %; Eosinophils # 1.5 10^3/uL (0.0-0.8); Eosinophils % 14.8 %; Hematocrit 43.5 % (37-53); Lymphocytes # 0.7 10^3/uL (0.8-4.8); Mean Corpuscular HGB Conc 29.7 g/dL (30-55); Mean Corpuscular Hemoglobin 22.5 pg (27-33); Mean Corpuscular Volume 75.8 fl (82-101); Mean Platelet Volume 9.6 fL (7.4-10.4); Monocytes # 1.4 10^3/uL (0.2-0.9); Monocytes % 13.8 %; Neutrophils # 6.39 10^3/uL (1.8-7.7); Neutrophils % 62.3 %; Nucleated Red Blood Cells % 0 %; Platelet Count 342 10^3/cmm (157-399); Red Blood Count 5.74 10^6/uL (3.85-5.65); Red Cell Distribution Width 20.8 % (12.1-15.1); White Blood Count 10.25 10^3/uL (3.29-11.43)
[2024-02-01 06:53] LABS: Ammonia 58 umol/L (16-60)
[2024-02-01 07:08] LABS: Anion Gap 16.9 (5-19); Blood Urea Nitrogen 64 mg/dL (6-20); Calcium 10.4 mg/dL (8.5-10.5); Carbon Dioxide 34 mmol/L (22-29); Chloride 92 mmol/L (98-107); Glucose 124 mg/dL (65-115); Osmolality Calculated 308 mOsm/kg (285-295); Potassium 3.9 mmol/L (3.5-5.1); Sodium 139 mmol/L (136-145)
[2024-02-01 07:12] LABS: Creatinine Clr Calc Pharmacy 31.4069
--- NOTE | 2024-02-01 07:13 | P.PN_ITS ---
Subjective 2 Subjective: on 3 L nc feels oK Medications: Reviewed: Yes Vitals/I&O/Wt Last Vital Signs Temp 97.9 F 02/01/24 04:00 Pulse 110 H 02/01/24 06:17 Resp 18 02/01/24 06:17 BP 106/73 02/01/24 04:00 Pulse Ox 94 02/01/24 06:17 O2 Del Method BiPAP 02/01/24 06:17 O2 Flow Rate 4 01/31/24 20:00 FiO2 28 02/01/24 06:17 01/31/24 02/01/24 02/01/24 22:59 06:59 14:59 Output Total 1300 / 1300 400 / 1700 Balance -1300 / -940 -400 / -1340 Weight last 48 hrs Weight 131.088 kg Weight 131.542 kg Physical Exam 2 Narrative: awake , alert no distress crackles beatrice per report + LE edema Data 02/01/24 06:25 02/01/24 06:25 Micro: Microbiology 01/29/24 08:29 Urine Culture - Final Urine,Clean Catch Serratia marcescens A&P Assessment and plan (1) Chronic kidney disease: (2) Acute kidney injury superimposed on chronic kidney disease: 1. Acute on chronic kidney disease stage III: Baseline creatinine in the mid 1 range now has CAPRI with a creatinine of 3.7 in the setting of acute CHF exacerbation/volume overload. Possibly cardiorenal etiology. -Agree with IV Lasix, strict intake and output-switch to PO lasix -2 g sodium restriction of 1500 mL fluid restriction. 2. CHF exacerbation: Diuresis as above 3. Recent staph bacteremia and status post IV antibiotics 5. Liver cirrhosis Patient evaluated using audiovisual cart. Time spent 40 minutes. Attestations 2 Medical Necessity Statement*: per [facility] Coding Level of Care Code Acute Code for Chg Fwd Diagnoses Chronic kidney disease N18.9 Acute kidney injury superimposed on chronic kidney disease N17.9; N18.9
[2024-02-01 07:55] LABS: Glucose Point of Care 122 mg/dL (70-110)
[2024-02-01] MEDS: levothyroxine 125 mcg Tablet PO (09:48)
[2024-02-01] MEDS: FUROsemide 10 mg/mL SDV 10mL 60 MG IVP (09:48)
[2024-02-01 11:34] LABS: Glucose Point of Care 128 mg/dL (70-110)
[2024-02-01] MEDS: potassium chloride ER 20 mEq Tablet 40 MEQ PO ×2 (11:44→23:39)
[2024-02-01] MEDS: ondansetron 2 mg/ML SDV 2 mL 4 MG IVP (11:44)
--- NOTE | 2024-02-01 11:49 | PC.NURSE ---
pt reported nausea, give zofran. pt educ if n/v to only sip on water or eat ice chips. pt continues to eat and drink at will.
[2024-02-01 17:09] LABS: Glucose Point of Care 160 mg/dL (70-110)
[2024-02-01] MEDS: FUROsemide 40 mg Tablet 80 MG PO (17:11)
[2024-02-01 20:59] LABS: Glucose Point of Care 127 mg/dL (70-110)
--- NOTE | 2024-02-01 21:45 | ECG_ITS ---
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 Measurements Intervals [place] Rate: 117 P: 118 NV: 165 QRS: -85 QRSD: 163 T: 85 QT: 406 QTc: 569 Interpretive Statements SINUS TACHYCARDIA WITH OCCASIONAL SUPRAVENTRICULAR PREMATURE COMPLEXES RIGHT BUNDLE BRANCH BLOCK [120+ ms QRS DURATION, UPRIGHT V1, 40+ ms S IN I/aVL/V4/V5/V6] LEFT ANTERIOR FASCICULAR BLOCK [QRS AXIS <= -45, QR IN I, RS IN II] POSSIBLE ANTERIOR MYOCARDIAL INFARCTION , OF INDETERMINATE AGE [30 ms Q WAVE IN V3/V4, OR R < 0.2 mV IN V4] INFERIOR MYOCARDIAL INFARCTION age-indeterminate Compared to ECG 01/29/2024 08:46:42 Right bundle-branch block now present Left anterior fascicular block now present Atrial abnormality no longer present ST (T wave) deviation no longer present Myocardial infarct finding still present Electronically Signed On 02-02-2024 9:59:01 CDT by Errol Schmitt M.D. [id number]
--- NOTE | 2024-02-01 22:08 | PC.NURSE ---
Addendum entered by Mariana Prasad RN 02/01/24 22:24: RT sent to do repeat EKG to attempt to get a better image with less artifact. Patient told RT to get out and leave him alone. Unable to get second EKG due to patient refusing. Dr. Olivier notified. Dr. Olivier sent image of patient's rhythm on ekg monitor tech via voalte phone. No new orders received. Addendum entered by Mariana Prasad RN 02/01/24 22:16: EKG repeated due to artifact per Dr. Olivier. Also ordered renal function panel, TSH, magnesium and troponin. Original Note: Patient's ekg monitor tech laying on bedside table. I asked patient if it was okay if we put it back on him. Patient stated I don't care. Monitor stating V-tach, however by visualization, it does not appear to be V-tach, however heart rate is ranging 110-120. EKG taken. Dr. Olivier notified and asked her to look at EKG result in patient's chart.
--- NOTE | 2024-02-01 22:41 | ECG_ITS ---
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 Measurements Intervals [place] Rate: 116 P: 87 CO: 181 QRS: 133 QRSD: 57 T: 91 QT: 404 QTc: 563 Interpretive Statements SINUS TACHYCARDIA WITH FREQUENT SUPRAVENTRICULAR PREMATURE COMPLEXES Right bundle branch block Left anterior fascicular block POSSIBLE RIGHT ATRIAL ENLARGEMENT [0.25mV P-WAVE] LEFT ATRIAL ENLARGEMENT [-0.15mV P-WAVE IN V1/V2] LOW QRS VOLTAGE IN PRECORDIAL LEADS [QRS DEFLECTION < 1.0 mV IN CHEST LEADS] ANTEROLATERAL MYOCARDIAL INFARCTION Age-indeterminate Possible old inferior myocardial infarction Compared to ECG 02/01/2024 21:54:30 Atrial abnormality now present ST (T wave) deviation now present Myocardial infarct finding still present Electronically Signed On 02-02-2024 10:00:56 CDT by Errol Schmitt M.D. [id number]
[2024-02-01 23:14] LABS: Potassium 3.3 mmol/L (3.5-5.1)
[2024-02-01 23:23] LABS: Troponin T (5th) Once 121 ng/L (0-15)
[2024-02-01 23:27] LABS: Albumin Level 3.6 g/dL (3.5-5.2); Anion Gap 18.4 (5-19); Blood Urea Nitrogen 62 mg/dL (6-20); Calcium 10.3 mg/dL (8.5-10.5); Carbon Dioxide 34 mmol/L (22-29); Chloride 93 mmol/L (98-107); Creatinine Clr Calc Pharmacy 34.6559; Glomerular Filtration Rate 22.4 mL/min (90-130); Glucose 135 mg/dL (65-115); Magnesium 1.8 mg/dL (1.7-2.3); Phosphorus 4.4 mg/dL (2.5-4.5); Potassium 3.4 mmol/L (3.5-5.1); Sodium 142 mmol/L (136-145); Thyroid Stimulating Hormone 24.25 uIU/mL (0.27-4.20)
--- NOTE | 2024-02-01 23:32 | PC.NURSE ---
Dr. Olivier notified that patient allowed us to complete EKG. Also notified of lab results. Ordered to give 2 gram IV Mag and 40 meq PO potassium.
[2024-02-01] MEDS: magnesium sulfate premix 2 GM/50 ML PIGGYBACK IV (23:39)
[2024-02-02] VITALS (18 sets, daily range): BP systolic 95–114; BP diastolic 63–76; PULSE 99–118; RESP 18–20; TEMP 36.3–37.1; O2SAT 92–97
[2024-02-02 01:47] LABS: Basophils # 0.2 10^3/uL (0.0-0.1); Basophils % 1.7 %; Eosinophils # 1.7 10^3/uL (0.0-0.8); Eosinophils % 16.8 %; Hematocrit 44.5 % (37-53); Lymphocytes # 0.6 10^3/uL (0.8-4.8); Lymphocytes % 6.3 %; Mean Corpuscular HGB Conc 28.8 g/dL (30-55); Mean Corpuscular Hemoglobin 22.5 pg (27-33); Mean Corpuscular Volume 78.3 fl (82-101); Mean Platelet Volume 9.3 fL (7.4-10.4); Monocytes # 1.3 10^3/uL (0.2-0.9); Monocytes % 12.9 %; Neutrophils % 61.9 %; Nucleated Red Blood Cells % 0 %; Platelet Count 325 10^3/cmm (157-399); Red Blood Count 5.68 10^6/uL (3.85-5.65); White Blood Count 9.85 10^3/uL (3.29-11.43)
[2024-02-02 02:12] LABS: Anion Gap 19.6 (5-19); Blood Urea Nitrogen 60 mg/dL (6-20); Calcium 10.1 mg/dL (8.5-10.5); Carbon Dioxide 33 mmol/L (22-29); Chloride 93 mmol/L (98-107); Creatinine Clr Calc Pharmacy 34.6559; Glomerular Filtration Rate 22.4 mL/min (90-130); Glucose 130 mg/dL (65-115); Osmolality Calculated 313 mOsm/kg (285-295); Potassium 3.6 mmol/L (3.5-5.1); Sodium 142 mmol/L (136-145)
[2024-02-02 02:14] LABS: Troponin T (5th) Once 110 ng/L (0-15)
--- NOTE | 2024-02-02 02:17 | PC.NURSE ---
Dr. Olivier ordered to start patient's home dose of Metoprolol.
[2024-02-02] MEDS: ipratropium-albuterol 3 mL Neb INHALATION ×4 (02:55→23:13)
[2024-02-02] MEDS: metoprolol succinate ER (24 HR) 25 mg Tablet PO (03:09)
[2024-02-02] MEDS: heparin 5,000 unit/mL INJ 1 mL 5000 UNIT SUBCUT (03:09)
[2024-02-02] MEDS: aspirin 81 mg EC Tablet PO (03:09)
[2024-02-02 06:25] LABS: Glucose Point of Care 123 mg/dL (70-110)
--- NOTE | 2024-02-02 07:45 | P.PN_ITS ---
Subjective 2 Subjective: on 4L NC Medications: Reviewed: Yes Vitals/I&O/Wt Last Vital Signs Temp 97.3 F L 02/02/24 07:43 Pulse 102 H 02/02/24 07:43 Resp 19 H 02/02/24 07:43 BP 104/72 02/02/24 07:43 Pulse Ox 94 02/02/24 07:43 O2 Del Method Nasal Cannula 02/02/24 07:43 O2 Flow Rate 4 02/01/24 20:00 FiO2 30 02/02/24 04:25 02/01/24 02/02/24 02/02/24 22:59 06:59 14:59 Intake Total 0 / 720 290 / 1010 Output Total 1150 / 2050 1100 / 3150 Balance -1150 / -1330 -810 / -2140 Weight last 48 hrs Weight 81.647 kg Weight 131.088 kg Physical Exam 2 Narrative: awake , alert no distress crackles beatrice per report + LE edema Data 02/02/24 01:20 02/02/24 01:20 A&P Assessment and plan (1) Chronic kidney disease: (2) Acute kidney injury superimposed on chronic kidney disease: 1. Acute on chronic kidney disease stage III: Baseline creatinine in the mid 1 range now has CAPRI with a creatinine of 3.7 in the setting of acute CHF exacerbation/volume overload. Possibly cardiorenal etiology. -s/p IV Lasix, strict intake and output-switched to PO lasix -2 g sodium restriction of 1500 mL fluid restriction. 2. CHF exacerbation: Diuresis as above 3. Recent staph bacteremia and status post IV antibiotics 5. Liver cirrhosis Patient evaluated using audiovisual cart. Time spent 40 minutes. Attestations 2 Medical Necessity Statement*: per [facility] Coding Level of Care Code Acute Code for g Fwd Diagnoses Chronic kidney disease N18.9 Acute kidney injury superimposed on chronic kidney disease N17.9; N18.9
[2024-02-02] MEDS: ondansetron 2 mg/ML SDV 2 mL 4 MG IVP (07:48)
--- NOTE | 2024-02-02 07:54 | XRR_ITS ---
PROCEDURE INFORMATION: Exam: XR Chest Exam date and time: 02/02/2024 8:21 AM Age: 58 years old Clinical indication: Other: Possible aspiration TECHNIQUE: Imaging protocol: Radiologic exam of the chest. Views: 1 view. COMPARISON: CR XR chest 1V portable [id number] 01/29/2024 8:39 AM FINDINGS: Tubes, catheters and devices: Cardiac device left chest good position Lungs: Low lung volumes. The lungs are otherwise clear No consolidation. Pleural spaces: Unremarkable. No pleural effusion. No pneumothorax. Heart/Mediastinum: Unremarkable. No cardiomegaly. Bones/joints: Unremarkable. XR/XR chest 1V portable [id number] IMPRESSION: 1. No acute findings. 2. Cardiac device in the left chest in good position
--- NOTE | 2024-02-02 09:16 | P.PN_ITS ---
Subjective 2 Subjective: Creatinine is improving Will request for paracentesis diagnostic and therapeutic by tomorrow Will request speech therapy Will change diet to mechanical soft Vitals/I&O/Wt Last Vital Signs Temp 97.3 F L 02/02/24 07:43 Pulse 105 H 02/02/24 08:37 Resp 20 H 02/02/24 08:32 BP 104/72 02/02/24 07:43 Pulse Ox 93 02/02/24 08:32 O2 Del Method Nasal Cannula 02/02/24 08:32 O2 Flow Rate 4 02/02/24 08:32 FiO2 30 02/02/24 04:25 02/01/24 02/02/24 02/02/24 22:59 06:59 14:59 Intake Total 0 / 720 290 / 1010 260 / 260 Output Total 1150 / 0 1100 / 3150 Balance -1150 / -1330 -810 / -2140 260 / 260 Weight last 48 hrs Weight 81.647 kg Weight 131.088 kg Physical Exam 2 Narrative: Patient is awake and alert Distended abdomen nontender Hypoventilating Secondary to distended abdomen Currently on 4 L Mild rhonchi with crackles Blood pressure stable I do not see any active sign of stroke Anasarca Venous stasis dermatitis S1, S2 Data 02/02/24 01:20 02/02/24 01:20 A&P Assessment and plan (1) ICD (implantable cardioverter-defibrillator) in place: (2) Chronic congestive heart failure: Qualifiers: Heart failure type: unspecified Qualified Code(s): I50.9 - Heart failure, unspecified (3) Diabetes mellitus, type II, insulin dependent: (4) Acute kidney injury superimposed on chronic kidney disease: (5) Ataxia: (6) COPD (chronic obstructive pulmonary disease): (7) Obstructive sleep apnea: (8) Personal history of nicotine dependence: Plan Acute systolic CHF exacerbation Plan to switch to p.o. Lasix and spironolactone Acute on chronic kidney disease Improving No need of dialysis Recurrent nausea vomiting CT abdomen pelvis consistent with liver cirrhosis Will request paracentesis on Saturday Sleep apnea requires BiPAP overnight Currently on 3 L during the day Constipation: Improved Patient has ataxia, uses a walker at skilled nursing, has refused PT today Full code Will change diet to mechanical soft, x-ray requested to rule out aspiration pneumonia Plan to discharge likely on Saturday Attestations 2 Medical Necessity Statement*: Continue medical management Diagnoses ICD (implantable cardioverter-defibrillator) in place Z95.810 Chronic congestive heart failure I50.9 Heart failure type: unspecified Diabetes mellitus, type II, insulin dependent E11.9; Z79.4 Acute kidney injury superimposed on chronic kidney disease N17.9; N18.9 Ataxia R27.0 COPD (chronic obstructive pulmonary disease) J44.9 Obstructive sleep apnea G47.33 Personal history of nicotine dependence Z87.891
[2024-02-02 10:10] LABS: INR 1.17 (0.8-1.2); Platelet Count 342 10^3/cmm (157-399)
[2024-02-02 10:11] LABS: Fibrinogen 441 mg/dL (174-498); Partial Thromboplastin Time 31.4 SECONDS (23.9-36.7)
[2024-02-02] MEDS: FUROsemide 40 mg Tablet 80 MG PO ×2 (10:34→17:13)
[2024-02-02] MEDS: potassium chloride ER 20 mEq Tablet 40 MEQ PO (10:34)
[2024-02-02] MEDS: levothyroxine 125 mcg Tablet PO (10:34)
[2024-02-02] MEDS: sennosides-docusate Tablet 1 TAB PO (10:34)
[2024-02-02 12:12] LABS: Glucose Point of Care 171 mg/dL (70-110)
[2024-02-02 16:34] LABS: Glucose Point of Care 130 mg/dL (70-110)
[2024-02-02 20:43] LABS: Glucose Point of Care 174 mg/dL (70-110)
[2024-02-02] MEDS: insulin glargine 100 units/1 mL 25 UNIT SUBCUT (21:25)
[2024-02-03] VITALS (8 sets, daily range): BP systolic 94–118; BP diastolic 60–80; PULSE 98–111; RESP 16–20; TEMP 36.3–37.1; O2SAT 95–97
[2024-02-03] MEDS: metoprolol succinate ER (24 HR) 25 mg Tablet PO (05:55)
[2024-02-03] MEDS: aspirin 81 mg EC Tablet PO (05:56)
--- NOTE | 2024-02-03 06:00 | US_ITS ---
WS: [id number] ULTRASOUND ABDOMEN LIMITED FLUID INDICATION: Ascites TECHNIQUE: Ultrasound abdomen limited FINDINGS: Ultrasound for paracentesis. Only a minimal amount of fluid in the paracolic gutters bilate rally. Insufficient fluid for paracentesis. Previously described ascites likely shifted into the depe ndent pelvis. US/US abdomen lmt fluid [id number] IMPRESSION: Insufficient fluid for paracentesis at this time
[2024-02-03 06:27] LABS: Glucose Point of Care 122 mg/dL (70-110)
[2024-02-03 07:07] LABS: Basophils # 0.2 10^3/uL (0.0-0.1); Basophils % 1.9 %; Eosinophils # 1.8 10^3/uL (0.0-0.8); Eosinophils % 18.9 %; Hematocrit 44.7 % (37-53); Lymphocytes # 0.7 10^3/uL (0.8-4.8); Mean Corpuscular HGB Conc 28.6 g/dL (30-55); Mean Corpuscular Hemoglobin 22.7 pg (27-33); Mean Corpuscular Volume 79.3 fl (82-101); Mean Platelet Volume 10.1 fL (7.4-10.4); Monocytes # 1.4 10^3/uL (0.2-0.9); Monocytes % 14.6 %; Neutrophils # 5.38 10^3/uL (1.8-7.7); Neutrophils % 57.2 %; Nucleated Red Blood Cells % 0 %; Platelet Count 306 10^3/cmm (157-399); Red Blood Count 5.64 10^6/uL (3.85-5.65); Red Cell Distribution Width 21.1 % (12.1-15.1); White Blood Count 9.42 10^3/uL (3.29-11.43)
[2024-02-03 07:27] LABS: Alanine Aminotransferase 10 U/L (0-41); Albumin Level 3.3 g/dL (3.5-5.2); Alkaline Phosphatase 73 U/L (40-130); Aspartate Amino Transferase 19 U/L (0-40); Blood Urea Nitrogen 56 mg/dL (6-20); Calcium 10.3 mg/dL (8.5-10.5); Carbon Dioxide 31 mmol/L (22-29); Chloride 92 mmol/L (98-107); Creatinine Clr Calc Pharmacy 37.9482; Globulin 3.4 g/dL (1.3-4.6); Glomerular Filtration Rate 25.4 mL/min (90-130); Glucose 122 mg/dL (65-115); Osmolality Calculated 305 mOsm/kg (285-295); Sodium 139 mmol/L (136-145); Total Protein 6.7 g/dL (6.6-8.7)
[2024-02-03 07:28] LABS: Anion Gap 19.6 (5-19); Potassium 3.6 mmol/L (3.5-5.1)
--- NOTE | 2024-02-03 07:34 | P.PN_ITS ---
Subjective 2 Subjective: no new c/o Vitals/I&O/Wt Last Vital Signs Temp 98.7 F 02/03/24 00:00 Pulse 111 H 02/03/24 05:25 Resp 17 02/03/24 05:00 BP 118/80 02/03/24 05:00 Pulse Ox 97 02/03/24 05:00 O2 Del Method BiPAP 02/02/24 23:15 O2 Flow Rate 4 02/02/24 19:54 FiO2 30 02/02/24 23:15 02/02/24 02/03/24 02/03/24 22:59 06:59 14:59 Intake Total 360 / 620 120 / 740 Output Total 1000 / 1000 1250 / 2250 Balance -640 / -380 -1130 / -1510 Weight last 48 hrs Weight 127.006 kg Weight 81.647 kg Physical Exam 2 Narrative: awake , alert no distress crackles beatrice per report + LE edema Data 02/03/24 06:35 02/03/24 06:35 A&P Assessment and plan (1) Chronic kidney disease: (2) Acute kidney injury superimposed on chronic kidney disease: 1. Acute on chronic kidney disease stage III: Baseline creatinine in the mid 1 range now has CAPRI with a creatinine of 3.7 in the setting of acute CHF exacerbation/volume overload. Possibly cardiorenal etiology. -s/p IV Lasix, strict intake and output-switched to PO lasix, Cr better @ 2.6 today -2 g sodium restriction of 1500 mL fluid restriction. 2. CHF exacerbation: Diuresis as above 3. Recent staph bacteremia and status post IV antibiotics 5. Liver cirrhosis Patient evaluated using audiovisual cart. Time spent 40 minutes. Attestations 2 Medical Necessity Statement*: per [facility] Coding Level of Care Code Acute Code for Chg Fwd Diagnoses Chronic kidney disease N18.9 Acute kidney injury superimposed on chronic kidney disease N17.9; N18.9
[2024-02-03] MEDS: ipratropium-albuterol 3 mL Neb INHALATION (08:11)
[2024-02-03] MEDS: sennosides-docusate Tablet 1 TAB PO (09:24)
[2024-02-03] MEDS: levothyroxine 125 mcg Tablet PO (09:24)
[2024-02-03] MEDS: FUROsemide 40 mg Tablet 80 MG PO (09:24)
--- NOTE | 2024-02-03 09:47 | PC.SOCIAL ---
IMM Updated Updated pt on IMM. No questions voiced. Provided pt a copy. Initialed, dated, & timed copy in chart.
[2024-02-03 10:04] LABS: Hepatitis A Antibody IgM Non-Reactive (Nonreactive); Hepatitis B Core AB, Total Non-Reactive (Nonreactive); Hepatitis B Surface AB < 3.5 (11.5-1000); Hepatitis B Surface Antigen Non-Reactive (Nonreactive); Hepatitis C Virus Antibody Non-Reactive (Nonreactive)
[2024-02-03 11:21] LABS: Glucose Point of Care 147 mg/dL (70-110)
--- NOTE | 2024-02-03 12:56 | PM.DCS ---
Discharge Providers Date of Admission: 01/29/24 12:55 Date of Discharge: February 03, 2024 Attending Provider at Admission: Edwige Haley MD Attending Provider at Discharge: Edwige Haley MD Primary Care Provider: Karla Ryan MD Diagnoses at Discharge Discharge Diagnosis (1) Chronic kidney disease: Status: Chronic (2) Acute kidney injury superimposed on chronic kidney disease: Status: Acute Reason for Visit Reason for Visit: low kidney function Hospital Course Hospital Course 58-year male with history of liver cirrhosis, morbid obesity, diabetes, neuropathy, chronic kidney disease, presented from long term for worsening of abdominal girth and swelling, requested paracentesis however it was canceled because most of the fluid is accumulated in his pelvis, we discontinued spironolactone and kept him on IV Lasix initially which improved his kidney function nephrology was consulted as well, creatinine at the time of admission was 3.7, at the time of discharge around 2.6, I have asked patient to resume his Bumex 2 mg twice daily with metolazone and discontinue spironolactone. Patient is very reluctant to participate with PT does not have significant motivation, mother was updated. She is very involved with his care. Hepatitis panel negative, patient has never seen supervisor dry cell assembly or tobacco buyer I will give him referral to see a supervisor dry cell assembly in [place]. Etiology of liver cirrhosis seems to be CHF related versus HUTTON. Alpha-fetoprotein level unremarkable. Physical Exam Narrative: Patient morbidly obese Nontender abdomen Venous stasis dermatitis Pleasant and cooperative Currently on 2 L nasal cannula Hemodynamically stable Pleasant cooperative nonfocal neuroexam Discharge Data Studies Completed and Pending Completed Studies During Hospitalization Category Date Time Status CT abdomen pelvis wo con [id number] Routine Cat Scan 01/31/24 15:[address] abdomen pelvis wo con [id number] Stat Cat Scan 01/29/24 11:[address] head wo con* [id number] Routine Cat Scan 02/01/24 05:53 Completed CXRP [XR chest 1V portable [id number]] Stat Exams 02/02/24 07:54 Completed XR chest 1V portable [id number] Stat Exams 01/29/24 08:31 Completed Pending at discharge Category Date Time Status Albumin Peritoneal Fluid Routine Lab 02/02/24 09:17 Uncollected Glucose Peritoneal Fluid Routine Lab 02/02/24 09:17 Uncollected LDH Peritoneal Fluid Routine Lab 02/02/24 09:17 Uncollected Peritoneal Fluid Analysis Routine Lab 02/02/24 09:17 Uncollected Peritoneal Fluid Spec [place] Routine Lab 02/02/24 09:17 Uncollected Total Protein Peritoneal Fluid Routine Lab 02/02/24 09:17 Uncollected pH Peritoneal Fluid Routine Lab 02/02/24 09:17 Uncollected US abdomen lmt fluid [id number] Routine Ultrasound 02/03/24 06:00 Taken Radiology Impressions Abdomen/Pelvis CT 01/31/24 15:03 IMPRESSION: 1. Small right pleural effusion with adjacent compressive atelectasis or pneumonia. Trace left pleural fluid. 2. Soft tissue anasarca. 3. There is a large amount of free intraperitoneal fluid/ascites in the abdomen/pelvis. 4. The liver is mildly nodular in contour raising concern for cirrhosis. Head CT 02/01/24 05:53 IMPRESSION: 1. No acute intracranial hemorrhage or mass effect. 2. Changes of microvascular disease. 3. No definite acute infarct by CT, see above. 4. Other findings discussed above. Chest X-Ray 02/02/24 07:54 IMPRESSION: 1. No acute findings. 2. Cardiac device in the left chest in good position Laboratory Results WBC 9.42 10^3/uL (3.29-11.43) 02/03/24 06:35 RBC 5.64 10^6/uL (3.85-5.65) 02/03/24 06:35 Hgb 12.80 g/dL (11.27-16.99) 02/03/24 06:35 Hct 44.7 % (37-53) 02/03/24 06:35 MCV 79.3 fl (82-101) L 02/03/24 06:35 MCH 22.7 pg (27-33) L 02/03/24 06:35 MCHC 28.6 g/dL (30-55) L 02/03/24 06:35 RDW 21.1 % (12.1-15.1) H 02/03/24 06:35 Plt Count 306 10^3/cmm (157-399) 02/03/24 06:35 MPV 10.1 fL (7.4-10.4) 02/03/24 06:35 Neut % (Auto) 57.2 % 02/03/24 06:35 Lymph % (Auto) 7.0 % 02/03/24 06:35 [place] % (Auto) 14.6 % 02/03/24 06:35 Eos % (Auto) 18.9 % 02/03/24 06:35 Baso % (Auto) 1.9 % 02/03/24 06:35 Neut # (Auto) 5.38 10^3/uL (1.8-7.7) 02/03/24 06:35 Lymph # (Auto) 0.7 10^3/uL (0.8-4.8) L 02/03/24 06:35 [place] # (Auto) 1.4 10^3/uL (0.2-0.9) H 02/03/24 06:35 Eos # (Auto) 1.8 10^3/uL (0.0-0.8) H 02/03/24 06:35 Baso # (Auto) 0.2 10^3/uL (0.0-0.1) H 02/03/24 06:35 Nucleated RBC % (auto) 0 % 02/03/24 06:35 Nucleated RBCs # 0.0 /100WBC 02/03/24 06:35 PT 15.30 SECONDS (12.1-14.9) H 02/02/24 09:40 INR 1.17 (0.8-1.2) 02/02/24 09:40 APTT 31.4 SECONDS (23.9-36.7) 02/02/24 09:40 Fibrinogen 441 mg/dL (174-498) 02/02/24 09:40 Specimen Type Arterial 02/01/24 06:15 Sample Site Radial, left 02/01/24 06:15 ABG pH 7.38 (7.35-7.45) 02/01/24 06:15 ABG pCO2 61.2 mmHg (35-45) H* 02/01/24 06:15 ABG pO2 72.6 mmHg (80.0-100.0) L 02/01/24 06:15 ABG PO2/FiO2 Ratio 0 01/30/24 04:10 ABG HCO3 36.4 mmol/L (22-26) H 02/01/24 06:15 ABG O2 Saturation 92.5 01/29/24 08:48 ABG Base Excess 9.1 mmol/L (-2.0-2.0) H 02/01/24 06:15 Jj Test Pos 02/01/24 06:15 A-a O2 Gradient 8.2 mmHg (5-10) 01/29/24 08:48 Hematocrit 39.6 % (42-52) L 02/01/24 06:15 Hgb O2 Saturation 90.9 % (95-100) L 01/29/24 08:48 Carboxyhemoglobin 1.8 %THgb (0.4-20.1) 01/29/24 08:48 Methemoglobin 0.0 % (0.4-1.5) L 01/29/24 08:48 Total Hemoglobin 13.7 g/dL (14-18) L 01/29/24 08:48 Sodium 139.0 mmol/L (131-143) 01/29/24 08:48 Potassium 4.3 mmol/L (3.5-5.0) 01/29/24 08:48 Glucose 168.0 mg/dL (70-115) H 01/29/24 08:48 Ionized Calcium 1.4 mmol/L (1.1-1.4) 01/29/24 08:48 O2 Delivery Device Nc 02/01/24 06:15 O2 Liters/Min 3.0 % 02/01/24 06:15 FiO2 28.0 % 01/30/24 04:10 Density Control Puncher ID [email or web address] 02/01/24 06:15 Sodium 139 mmol/L (136-145) 02/03/24 06:35 Potassium 3.6 mmol/L (3.5-5.1) 02/03/24 06:35 Chloride 92 mmol/L (98-107) L 02/03/24 06:35 Carbon Dioxide 31 mmol/L (22-29) H 02/03/24 06:35 Anion Gap 19.6 (5-19) H 02/03/24 06:35 BUN 56 mg/dL (6-20) H 02/03/24 06:35 Creatinine 2.6 mg/dL (0.7-1.2) H 02/03/24 06:35 GFR Calculation 25.4 mL/min (90-130) L 02/03/24 06:35 Glucose 122 mg/dL (65-115) H 02/03/24 06:35 POC Glucose 147 mg/dL (70-110) H 02/03/24 11:18 Calculated Osmolality 305 mOsm/kg (285-295) H 02/03/24 06:35 Lactic Acid 1.9 mmol/L (0.5-2.2) 01/29/24 08:25 Calcium 10.3 mg/dL (8.5-10.5) 02/03/24 06:35 Phosphorus 4.4 mg/dL (2.5-4.5) 02/01/24 22:52 Magnesium 1.8 mg/dL (1.7-2.3) 02/01/24 22:52 Total Bilirubin 1.0 mg/dL (0.15-1.2) 02/03/24 06:35 AST 19 U/L (0-40) 02/03/24 06:35 ALT 10 U/L (0-41) 02/03/24 06:35 Alkaline Phosphatase 73 U/L (40-130) 02/03/24 06:35 Ammonia 58 umol/L (16-60) 02/01/24 06:25 Troponin T 5th Gen ng/L 110 ng/L (0-15) H* 02/02/24 01:20 NT-Pro-B Natriuret Pep 89277 pg/mL (0-125) H 01/29/24 08:25 Total Protein 6.7 g/dL (6.6-8.7) 02/03/24 06:35 Albumin 3.3 g/dL (3.5-5.2) L 02/03/24 06:35 Globulin 3.4 g/dL (1.3-4.6) 02/03/24 06:35 Lipase 15 U/L (13-60) 01/29/24 08:25 Tumor Marker AFP 2.0 ng/mL (0-8.3) 02/01/24 06:25 TSH 24.25 uIU/mL (0.27-4.20) H 02/01/24 22:52 Urine Color Yellow (Yellow) 01/29/24 08:29 Urine Appearance Cloudy (CLEAR) A 01/29/24 08:29 Urine pH 5 (5-7) 01/29/24 08:29 Ur Specific [place] 1.015 (1.005-1.030) 01/29/24 08:29 Urine Protein Neg (Negative) 01/29/24 08:29 Urine Glucose (UA) Norm (Normal) 01/29/24 08:29 Urine Ketones Negative (Negative) 01/29/24 08:29 Urine Blood 2+ (Negative) H 01/29/24 08:29 Urine Nitrate Negative (Negative) 01/29/24 08:29 Urine Bilirubin Neg (Negative) 01/29/24 08:29 Urine Urobilinogen Norm mg/dL (Negative) 01/29/24 08:29 Ur Leukocyte Esterase 2+ (Negative) H 01/29/24 08:29 Urine RBC 0-4 /hpf (0-2) H 01/29/24 08:29 Urine WBC 25-40 /hpf (0-5) H 01/29/24 08:29 Ur Squamous Epith Cells 0-4 /hpf (0-5) H 01/29/24 08:29 Amorphous Sediment Not Reportable 01/29/24 08:29 Urine Bacteria 1+ /hpf (NONE) H 01/29/24 08:29 Hyaline Casts 0-4 /lpf H 01/29/24 08:29 Fine Granular Casts 0-4 /lpf H 01/29/24 08:29 Urine Mucus 1+ /hpf 01/29/24 08:29 Hepatitis A IgM Ab Non-reactive (Nonreactive) 02/03/24 06:35 Hep Bs Antigen Non-reactive (Nonreactive) 02/03/24 06:35 Hep Bs Antibody < 3.5 (11.5-1000) L 02/03/24 06:35 Hep B Core Total Ab Non-reactive (Nonreactive) 02/03/24 06:35 Hepatitis C Antibody Non-reactive (Nonreactive) 02/03/24 06:35 Vitals Last Vital Signs Temp 97.4 F L 02/03/24 12:08 Pulse 99 02/03/24 12:08 Resp 18 02/03/24 12:08 BP 108/65 02/03/24 12:08 Pulse Ox 96 02/03/24 12:08 O2 Del Method Nasal Cannula 02/03/24 12:08 O2 Flow Rate 4 02/03/24 08:12 FiO2 30 02/03/24 08:16 Discharge Plan Discharge Patient Disposition: Xfer SNF Condition: Stable Prescriptions: Continued aspirin 81 mg tablet,delayed release (DR/EC) 81 mg PO QAM (DME) Dexcom G6 [employer] Misc See Rx Instructions miscellaneous .MEDSUPPLY Qty: 1 3RF Rx Instructions: change every 90 days (DME) Dexcom G6 Transmitter Device See Rx Instructions .MEDSUPPLY Qty: 3 3RF Rx Instructions: change every 3 months (DME) Dexcom G6 Sensor Device See Rx Instructions .MEDSUPPLY Qty: 9 3RF Rx Instructions: change every 10 days acetaminophen 325 mg Tablet 650 mg PO Q6H PRN (Reason: Pain) albuterol sulfate 2.5 mg /3 mL (0.083 %) Solution For Nebulization 2.5 mg INHALATION BID albuterol sulfate 2.5 mg /3 mL (0.083 %) Solution For Nebulization 2.5 mg INHALATION Q6H PRN (Reason: Shortness Of Breath Or Wheezing) cetirizine 10 mg Tablet 10 mg PO DAILY magnesium hydroxide [Milk of Magnesia] 400 mg/5 mL Suspension 30 ml PO DAILY PRN (Reason: Constipation) bisacodyl [Dulcolax (bisacodyl)] 10 mg Suppository 10 mg MS DAILY PRN (Reason: Constipation) Fleet Enema 19-7 gram/118 mL Enema 118 ml MS DAILY PRN (Reason: Constipation) polyethylene glycol 3350 [Miralax] 17 gram/dose Powder 17 g PO DAILY midodrine 10 mg Tablet 10 mg PO TID Rx Instructions: do not give last dose of day after 6PM or within 4 hrs of bedtime insulin lispro 100 unit/mL Insulin Pen 10 unit SUBCUT TID ramelteon 8 mg Tablet 8 mg PO BEDTIME cholecalciferol (vitamin D3) 1,250 mcg (50,000 unit) Capsule 1,250 mcg PO Q7D Rx Instructions: ON SATURDAY metoprolol succinate 25 mg capsule,sprinkle,ER 24hr 25 mg PO DAILY Qty: 30 0RF metolazone 5 mg Tablet 5 mg PO DAILY Probiotic 10 billion cell Capsule 10,000 mmu cells PO DAILY PRN (Reason: WHEN ON ANTIBIOTICS) potassium chloride 20 mEq Tablet Extended Release 40 meq PO .@NOON Ozempic 0.25 mg or 0.5 mg (2 mg/3 mL) Pen Injector 0.25 mg SUBCUT Q7D sertraline [Zoloft] 25 mg tablet 25 mg PO DAILY Qty: 30 0RF levothyroxine 125 mcg capsule 125 mcg PO DAILY Qty: 30 0RF Zofran 4 mg Tablet 4 mg PO Q4H PRN (Reason: Nausea) bumetanide 2 mg Tablet 2 mg PO BID Qty: 120 3RF Changed gabapentin 300 mg Capsule 100 mg PO TID Qty: 30 0RF insulin glargine [Lantus U-100 Insulin] 100 unit/mL solution 30 unit SUBCUT BEDTIME Qty: 15 0RF Discontinued spironolactone 25 mg Tablet 25 mg PO DAILY Discharge Orders: Discharge Order (Routine); Ordered 02/03/24 Ordered By: Edwige Haley Referrals: [facility] [Outside] Karla Ryan MD [Primary Care Provider] - Patient Instructions: Bumetanide (By mouth) (Bumex), Opioid Safety Discharge Attestations Time Spent in Discharge Care*: greater than 30 min Quality Metrics Clinical Quality Measures [ No reported AMI, CVA or VTE this stay] Coding Level of Care Code Acute Code for Chg Fwd Diagnoses Chronic kidney disease N18.9 Acute kidney injury superimposed on chronic kidney disease N17.9; N18.9
[2024-02-03] MEDS: insulin lispro 100 unit/1 mL SUBCUT (13:15)
[2024-02-03] MEDS: potassium chloride ER 20 mEq Tablet 40 MEQ PO (13:15)
--- NOTE | 2024-02-03 14:15 | PC.NURSE ---
Called report to Ekta Castellanos LPN at [facility] 1223
[2024-02-03 14:27] LABS: SARS Covid-2 Antigen negative (Negative)
--- NOTE | 2024-02-08 19:02 | P.CONIM_ITS ---
Providers/Reason For Consult 2 Consulting Physician/Specialty*: kommana /Nephrology Reason for Consult*: Acute on CKD Attending Physician: Edwige Haley MD Primary Care Provider: Karla Ryan MD History of Present Illness History of Present Illness Param Tejada is a 58 year old male patient is a 58-year-old male with multiple medical problems including congestive cardiac failure, chronic kidney disease with a baseline creatinine in the 2 range, hypertension, morbid obesity, recent Staphylococcus bacteremia, sleep apnea, was recently admitted to the hospital due to volume overload and CHF exacerbation and was diuresed and was discharged home. Creatinine was 2.6 at the time of discharge. He was sent to the residential and then he was sent back to the ER today due to shortness of breath and altered mental status. He was noted to be hypoxic and he was placed on BiPAP. Lab data is significant for WBC count of 11,000, BUN 91 creatinine 4.7 CO2 level of 31. Chest x-ray showed volume overload with pulmonary edema and cardiomegaly. Review of Systems 2 Narrative: unable to obtain from pt Medications/Allergies Home Medications Medication Instructions Recorded Confirmed Last Taken Type aspirin 81 mg tablet,delayed 81 mg PO QAM 11/29/20 01/29/24 12/09/23 History release blood-glucose meter,continuous #1 ea 08/23/22 01/29/24 Unknown Rx (Dexcom G6 Change Analyst) blood-glucose transmitter (Dexcom #3 ea 08/23/22 01/29/24 Unknown Rx G6 Transmitter device) blood-glucose sensor (Dexcom G6 #9 ea 04/19/23 01/29/24 Unknown Rx Sensor device) acetaminophen 325 mg tablet 650 mg PO Q6H PRN Pain 12/09/23 01/29/24 12/04/23 History albuterol sulfate 2.5 mg/3 mL 2.5 mg inhalation BID 12/09/23 01/29/24 12/09/23 History (0.083 %) solution for nebulization albuterol sulfate 2.5 mg/3 mL 2.5 mg inhalation Q6H PRN 12/09/23 01/29/24 12/07/23 History (0.083 %) solution for nebulization Shortness Of Breath Or Wheezing bisacodyl 10 mg rectal suppository 10 mg [place] DAILY PRN Constipation 12/09/23 01/29/24 Unknown History (Dulcolax (bisacodyl)) cetirizine 10 mg tablet 10 mg PO DAILY 12/09/23 01/29/24 12/09/23 History cholecalciferol (vitamin D3) 1,250 1,250 mcg PO Q7D 12/09/23 01/29/24 12/03/23 History mcg (50,000 unit) capsule insulin lispro 100 unit/mL 10 unit SUBCUT TID 12/09/23 01/29/24 12/09/23 History subcutaneous pen magnesium hydroxide 400 mg/5 mL 30 ml PO DAILY PRN Constipation 12/09/23 01/29/24 Unknown History oral suspension (Milk of Magnesia) midodrine 10 mg tablet 10 mg PO TID 12/09/23 01/29/24 12/09/23 History polyethylene glycol 3350 17 17 g PO DAILY 12/09/23 01/29/24 12/09/23 History gram/dose oral powder (Miralax) ramelteon 8 mg tablet 8 mg PO BEDTIME INSOMNIA 12/09/23 01/29/24 12/08/23 History sodium phosphates 19 gram-7 118 ml [place] DAILY PRN Constipation 12/09/23 01/29/24 Unknown History gram/118 mL enema (Fleet Enema) metoprolol succinate 25 mg capsule 25 mg PO DAILY #30 ea 12/17/23 01/29/24 Unknown Rx sprinkle, ext. release 24 hr Lactobacillus acidophilus 10 10,000 mmu cells PO DAILY PRN WHEN 01/23/24 01/29/24 Unknown History billion cell capsule (Probiotic) ON ANTIBIOTICS levothyroxine 125 mcg capsule 125 mcg PO DAILY #30 caps 01/23/24 01/29/24 Unknown Rx metolazone 5 mg tablet 5 mg PO DAILY 01/23/24 01/29/24 Unknown History potassium chloride 20 mEq 40 meq PO .@NOON 01/23/24 01/29/24 Unknown History tablet,extended release semaglutide 0.25 mg or 0.5 mg (2 0.25 mg SUBCUT Q7D 01/23/24 01/29/24 Unknown History mg/3 mL) subcutaneous pen injector (Ozempic) sertraline 25 mg tablet (Zoloft) 25 mg PO DAILY #30 tabs 01/23/24 01/29/24 Unknown Rx ondansetron HCl 4 mg tablet 4 mg PO Q4H PRN Nausea 01/29/24 01/29/24 Unknown History bumetanide 2 mg tablet 2 mg PO BID #120 tabs 02/03/24 Unknown Rx gabapentin 300 mg capsule 100 mg (0.3333 x 300 mg) PO TID 02/03/24 01/29/24 12/09/23 Rx Pain #30 caps insulin glargine 100 unit/mL 30 unit (0.3 mL) SUBCUT BEDTIME 02/03/24 01/29/24 Unknown Rx subcutaneous solution (Lantus #15 mL U-100 Insulin) Allergies Allergy/AdvReac Type Severity Reaction Status Date / Time Sulfa (Sulfonamide Allergy Severe ALGY-Anaphy Verified 12/30/23 13:51 Antibiotics) laxis PFSH Acute 2 PFSH: Medical History (Updated 02/08/24 @ 15:59 by Quan Henderson MD) Acute kidney injury superimposed on chronic kidney disease Acute and chronic respiratory failure with hypercapnia Hypothyroidism Chronic kidney disease Diabetes mellitus, type II, insulin dependent Severe diabetic hypoglycemia history of severe hypoglycemia CHF (congestive heart failure) systolic and diastolic dysfunction COPD (chronic obstructive pulmonary disease) Ataxia History of transesophageal echocardiography (NANCY) August 2023 Multiorgan failure 07/2023 - 08/2023 when admitted with COVID 19, intubated, temporary dialysis with CRRT for CAPRI/ARF and fluid overload, transient afib, encephalopathy, shock liver, septic shock, required TPN and transfer to LTAC facility History of renal dialysis temporary dialysis in August 2023 Chronic hypercapnic respiratory failure Sustained ventricular tachycardia 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 Pneumonia due to COVID-19 virus August 2023, severe treated with dexamethasone and remdesivir Staphylococcus aureus pneumonia August 2023 when had covid, also had staph lundgensis and staph epidermidis in cultures > received prolonged course of antibiotics with cefazolin via PICC per ID recommendations which completed in Sep 2023 Renal calculus history of left renal calculi and at least 2 spontaneous passage Personal history of nicotine dependence CAD (coronary artery disease) 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 2 diabetes mellitus Insulin dependent diabetes mellitus ICD (implantable cardioverter-defibrillator) in place single chamber medtronic ICD programmed with a lower rate at 40 bpm per report 08/20/2023 Morbid obesity Obstructive sleep apnea Intolerant of home bipap Ischemic cardiomyopathy Technically limited echo in 08/2023 with diffuse hypokinesis and EF 36% Hyperlipidemia Hypertension ST elevation myocardial infarction (STEMI) of inferior wall Surgical History History of cardiac catheterization ~06/2023 with no intervention performed per cardiology consult notes in 08/2023 History of appendectomy History of hernia surgery S/P knee replacement History of left knee replacement History of cardiac defibrillator placement History of coronary artery stent placement 2015 hx of CAD with inferior wall [place] s/p RCA stent, LAD stent Family History Father No problems noted. Mother No problems noted. Denies family history of CAD (coronary artery disease) Social History Smoking and tobacco/nicotine status: former use of tobacco/nicotine Alcohol intake: never Substance/Drug Use: never Marital status: Single Current occupational status: disabled Do you think of yourself as: Straight/Heterosexual Vitals/I&O/Wt Last Vital Signs Temp 97.4 F L 02/03/24 15:10 Pulse 99 02/03/24 15:10 Resp 18 02/03/24 15:10 BP 108/65 02/03/24 15:10 Pulse Ox 96 02/03/24 15:10 O2 Del Method Nasal Cannula 02/03/24 12:08 O2 Flow Rate 4 02/03/24 08:12 FiO2 30 02/03/24 08:16 Physical Exam 2 Narrative: pt currently on BIPAP NO DISTRESS + EDEMA Data 02/03/24 06:35 02/03/24 06:35 A&P Assessment and plan (1) Acute kidney injury superimposed on chronic kidney disease: Plan 1. Acute on chronic kidney disease stage III: Worsening renal function in the setting of acute CHF exacerbation. Poor response to diuretics. Noted patient has multiple recurrent admissions for volume overload. Currently on Bumex drip, with suboptimal diuretic response at this point. Keep him n.p.o. and plan for tunneled dialysis catheter tomorrow. Will initiate hemodialysis for volume management. Avoid nephrotoxins and IV contrast studies. 2. Acute on chronic respiratory failure: Multifactorial in the setting of COPD and CHF, diuresis as above 3. History of hypertension 4. History of diabetes 5. COPD Patient evaluated using audiovisual cart. Time spent 40 minutes. Consult Attestations 2 Medical Necessity Statement: per mark Coding Level of Care Code Acute Code for Chg Fwd Diagnoses Acute kidney injury superimposed on chronic kidney disease N17.9; N18.9
== END 2024-02-03 15:17 | disposition skilled nursing facility (03) | DRG 682 ==
LOC: ER 08:37 → ICU 12:55 → MEDSURG 01-30 14:29
PROVIDERS: Student in an Organized Health Care Education/Training Program; Admitting Provider Internal Medicine; Emergency Provider Family Medicine; PCP Family Medicine; Visit Provider Internal Medicine
DX: N17.9 Acute kidney failure, unspecified (principal); I50.23 Acute on chronic systolic (congestive) heart failure; J96.22 Acute and chronic respiratory failure with hypercapnia; I13.0 Hypertensive heart and chronic kidney disease with heart failure and stage 1 through stage 4 chronic kidney disease, or unspecified chronic kidney disease; N18.30 Chronic kidney disease, stage 3 unspecified; K59.00 Constipation, unspecified; Z99.81 Dependence on supplemental oxygen; I87.2 Venous insufficiency (chronic) (peripheral); R27.0 Ataxia, unspecified; E11.22 Type 2 diabetes mellitus with diabetic chronic kidney disease; Z87.891 Personal history of nicotine dependence; Z79.82 Long term (current) use of aspirin; Z79.4 Long term (current) use of insulin; Z79.85 Long-term (current) use of injectable non-insulin antidiabetic drugs; Z95.810 Presence of automatic (implantable) cardiac defibrillator; K74.60 Unspecified cirrhosis of liver; I25.5 Ischemic cardiomyopathy; E66.01 Morbid (severe) obesity due to excess calories; J44.9 Chronic obstructive pulmonary disease, unspecified; G47.33 Obstructive sleep apnea (adult) (pediatric); E03.9 Hypothyroidism, unspecified
CPT/HCPCS: 36415; 36416; 36600; 49083; 70450; 71045; 74176; 76705; 80048; 80051; 80053; 80069; 81001; 82105; 82140; 82330; 82803; 82805; 82962; 83605; 83690; 83735; 83880; 84132; 84443; 84484; 85025; 85049; 85384; 85610; 85730; 86705; 86706; 86709; 86803; 87077; 87086; 87186; 87340; 87426; 93005; 94640; 94660; 96365; 96372; 96376; 97110; 97162; 97530; 99291; 99292; J1644; J1815; J1940; J2185; J2405; J3475; Q3014